=== PATIENT | male | born 1980 | race Hispanic/Latino ===

== ENCOUNTER 2025-01-30 15:43 | Inpatient (IN) | payer SELFPAY ==
[2025-01-30] VITALS (10 sets, daily range): BP systolic 125–143; BP diastolic 81–94; PULSE 100–110; RESP 20–39; O2SAT 86–97
[~2025-01-30] VITALS: Ht 188 cm; Wt 155.4 kg
--- NOTE | 2025-01-30 10:30 | NUR ---
Received report from David TOMAS, patient aox4, on a nrb at 15, patient has sister bedside, came up with a 14french farrell placed in ER, only on abx and normal saline 0.9 at this moment
[2025-01-30 16:10] LABS: ABG BASE EXCESS -0.7 mmol/L (-2.0-3.0); ABG HCO3 22.6 mmol/L (21.0-28.0); ABG OXYGEN SATURATION 94.3 % (94.0-98.0); ABG PCO2 33 mmHg (35-48); ABG PH 7.452 (7.350-7.450); CARBON MONOXIDE 1.1 % (0.5-1.5); PO2, ARTERIAL BG 71.0 mmHg (83.0-108.0); TEMPERATURE, CELSIUS BG 37.0 CELSIUS (35.5-37.0); VENT MODE, BG NRBM (ROOM AIR)
[2025-01-30 16:22] LABS: IMMATURE GRANULOCYTE ABSOLUTE 0.14 K/uL (0-1); NUCLEATED RED BLOOD CELLS 0.2 % (0.0-0.19); PLATELET COUNT (AUTO) 321 K/uL (130-400); RED BLOOD CELL COUNT(AUTO) 4.69 MIL/uL (4.50-6.20); RED CELL DISTRIBUTION WIDTH 14.2 % (11.0-15.5); WHITE BLOOD COUNT (AUTO) 9.3 K/uL (4.8-10.8)
[2025-01-30 16:35] LABS: CREATININE 1.0 mg/dL (0.5-1.3); GLOMERULAR FILTR. RATE CALC 96.0 mL/min (>90); GLUCOSE,RANDOM 94.0 mg/dL (70-105); SODIUM SERUM 138.0 mmol/L (136-145); UREA NITROGEN, BLOOD 21.0 mg/dL (7-18)
[2025-01-30 16:40] LABS: CREATINE KINASE, TOTAL 29.0 U/L (21-232)
[2025-01-30 16:42] LABS: RAPID GROUP A STREP negative (NEGATIVE)
[2025-01-30 16:44] LABS: SARS-CoV-2, RNA, NAAT NEGATIVE SARS CoV-2 (NEGATIVE)
[2025-01-30 16:49] LABS: INFLUENZA TYPE A Negative For Type A (NEGATIVE); INFLUENZA TYPE B Negative For Type B (NEGATIVE)
--- NOTE | 2025-01-30 16:49 | ERN ---
General Chief Complaint: Shortness of Breath Stated Complaint: SOB Time Seen by MD: 15:46 Source: patient, EMS History of Present Illness Initial Comments Patient is a 44-year-old male coming in complaining of shortness of breath. Per EMS patient has been presenting with shortness of breath for greater than a month. aLong with this patient has been having fever and chills. Allergies: Coded Allergies: No Known Drug Allergies (Unverified Allergy, Unknown, 01/30/25) Past Medical History Past Medical History: No Pertinent History Past Surgical History: None ROS Dictation CONSTITUTIONAL: No chills, no fever, no weakness, no diaphoresis, no malaise. HEAD/FACE: No signs of trauma. EENT: No eye pain, no blurred vision, no tearing, no double vision, no ear pain, no ear discharge, no nose pain, no nasal congestion, no throat pain, no throat swelling, no mouth pain. RESPIRATORY: No cough, no orthopnea, SOB, no stridor, no wheezing. CARDIOVASCULAR: No chest pain, no edema, no palpitations, no syncope. GASTROINTESTINAL/ABDOMINAL: No abdominal pain, no constipation, no diarrhea, no nausea, no vomiting. GENITOURINARY: No abnormal discharge, no dysuria, no frequent urination, no hematuria. No complaints of pain in the genitals. MUSCULOSKELETAL: No back pain, no gout, no joint pain, no joint swelling, no muscle pain, no muscle stiffness, no neck pain. INTEGUMENTARY: No change in color, no change in hair/nails, no dryness, no lesion, no lumps, no rash. NEUROLOGICAL/PSYCH: No anxiety, not depressed, no emotional problem, no headache, no numbness, no pre-existing deficit, no history of seizures, no tremors, no weakness. HEMATOLOGIC/LYMPHATIC: Not anemic, no history of blood clots, no apparent bleeding, no bruising, glands not swollen. All Systems Negative, Except as Noted. Physical Exam Physical Exam Dictation VITAL SIGNS: Reviewed. GENERAL APPEARANCE: Alert, oriented x3, no acute distress, obese. HEAD AND FACE: Non-traumatic. EYES: PERRL, pink conjunctivas, eyelid no trauma, anterior chamber clear. EARS: Pinnas intact and no signs of trauma or erythema. Ear canals clear and no discharge. TMs no erythema. NOSE: No discharge, no bleeding. OROPHARYNX: Mouth normal, teeth no caries, tongue pink. Pharynx clear, no erythema. Tonsils no exudates, no abscesses noted. Mucous membrane moist. NECK: Supple, non-tender, no thyromegaly, no masses, no JVD, no bruits. BREAST: Deferred. CHEST: No tenderness, no crepitus, no paradoxical movement, no retractions. LUNGS: Clear, well-ventilated, symmetric, rales, no wheezing, rhonchi, stridor, good breath sounds bilaterally. HEART: Regular rate, regular rhythm, no murmur, no gallops. VASCULAR: No peripheral edema. ABDOMEN: Soft, positive bowel sounds, nondistended, no guarding, nontender, no rebound, no masses no hepatomegaly, no splenomegaly, no Samuel's sign, no hernias. RECTAL: Deferred. GENITAL: Deferred. NEUROLOGICAL: Normal speech, gross motor function intact, gross sensory function intact. MUSCULOSKELETAL: Neck nontender, full range of motion, back nontender, full range of motion. EXTREMITIES: Nontender, full range of motion. SKIN: Color pink, dry, no turgor, no rash, no lacerations, no abrasions, no contusions. LYMPHATICS: Deferred. Results Laboratory and Microbiology Lab and Micro Result Laboratory Tests Test 01/30/25 15:58 01/30/25 16:00 01/30/25 16:08 01/30/25 17:22 White Blood Count 9.3 K/uL (4.8-10.8) Red Blood Count 4.69 MIL/uL (4.50-6.20) Hemoglobin 12.9 g/dL (14.0-18.0) L Hematocrit 40.8 % (42-54) L Mean Corpuscular Volume 87.0 fL (79-99) Mean Corpuscular Hemoglobin 27.5 pg (27.0-33.0) Mean Corpuscular Hemoglobin Concent 31.6 g/dL (32.0-36.0) L Red Cell Distribution Width 14.2 % (11.0-15.5) Platelet Count 321 K/uL (130-400) Mean Platelet Volume 9.7 fL (7.5-10.5) Immature Granulocyte % (Auto) 1.5 % (0-1) H Neutrophils (%) (Auto) 84.0 % (40.0-77.0) H Lymphocytes (%) (Auto) 7.5 % (21.0-51.0) L Monocytes (%) (Auto) 6.7 % (3.0-13.0) Eosinophils (%) (Auto) 0.1 % (0.0-8.0) Basophils (%) (Auto) 0.2 % (0.0-5.0) Neutrophils # (Auto) 7.8 K/uL (1.8-7.7) H Lymphocytes # (Auto) 0.7 K/uL (1.0-4.8) L Monocytes # (Auto) 0.6 K/uL (0.1-1.0) Eosinophils # (Auto) 0.01 K/uL (0.00-0.70) Basophils # (Auto) 0.02 K/uL (0.00-0.20) Absolute Immature Granulocyte (auto 0.14 K/uL (0-1) Nucleated Red Blood Cells 0.2 % (0.0-0.19) H White Cell Morphology Comment See comments Sodium Level 138 mmol/L (136-145) Potassium Level 3.7 mmol/L (3.5-5.1) Chloride Level 104 mmol/L (101-111) Carbon Dioxide Level 26 mmol/L (21-32) Blood Urea Nitrogen 21 mg/dL (7-18) H Creatinine 1.0 mg/dL (0.5-1.3) Glomerular Filtration Rate Calc 96 mL/min (>90) Random Glucose 94 mg/dL (70-105) Lactic Acid Level 2.0 mmol/L (0.8-2.5) Total Calcium 8.3 mg/dL (8.5-10.1) L Total Creatine Kinase 29 U/L (21-232) Troponin I High Sensitivity 11 ng/L (4-75) Influenza Type A Antigen Negative For Type A Influenza Type B Antigen Negative For Type B SARS-CoV-2, RNA, NAAT NEGATIVE SARS CoV-2 Group A Streptococcus Rapid negative (NEGATIVE) Blood Gas Specimen Type Arterial Arterial Blood pH 7.452 (7.350-7.450) Arterial Blood Partial Pressure CO2 33 mmHg (35-48) L Arterial Blood Partial Pressure O2 71.0 mmHg (83.0-108.0) L Arterial Blood HCO3 22.6 mmol/L (21.0-28.0) Arterial Blood Oxygen Saturation 94.3 % (94.0-98.0) Arterial Blood Base Excess -0.7 mmol/L (-2.0-3.0) Hemoglobin (Blood Gas) 13.5 g/dL (13.5-17.5) Sodium (Blood Gas) 142 MMOL/L (136-145) Bedside Potassium (Blood Gas) 3.8 MMOL/L (3.4-4.5) Bedside Chloride (Blood Gas) 112 MMOL/L (98-107) H Bedside Glucose (Blood Gas) 101 MG/DL (65-95) H Bedside Ionized Calcium (Blood Gas) 1.15 MMOL/L (1.15-1.33) Bedside Lactic Acid (Blood Gas) 1.29 MMOL/L (0.36-0.75) H Blood Gas Temperature 37.0 CELSIUS (35.5-37.0) Blood Gas Flow-by 15.00 L/min (0.00-15.00) Blood Gas Vent Mode NRBM (ROOM AIR) FiO2 100.0 % Blood Gas Specimen Comment RR DR. CAMPA Urine Color ORANGE (YELLOW) Urine Appearance CLEAR (CLEAR) Urine pH 6.0 (5.0-8.0) Urine Specific Elizabeth 1.025 (1.001-1.031) Urine Protein >=300 mg/dL (NEGATIVE) H Urine Glucose (UA) NEGATIVE mg/dL (NEGATIVE) Urine Ketones 5 mg/dL (NEGATIVE) H Urine Occult Blood MODERATE (NEGATIVE) H Urine Nitrate NEGATIVE (NEGATIVE) Urine Bilirubin MODERATE mg/dL (NEGATIVE) H Urine Urobilinogen 4.0 mg/dL (0.2-1.0) H Urine Leukocyte Esterase NEGATIVE Sumi/uL Urine RBC 0-1 /HPF (0-1) Urine WBC 0-1 /HPF (0-1) Urine Squamous Epithelial Cells Rare /HPF (0-2) Urine Bacteria Rare /HPF (None Seen) Urine Hyaline Casts 2-5 /LPF (0-1 /LPF) H Urine Coarse Granular Casts 0-2 /LPF (None Seen) H Labs Reviewed?: Yes EKG/XRAY/US/CT/MRI EKG Comment 01/30/2025 time 3:49 p.m. Ventricular rate 113 Sinus tachycardia [place] [address] wave elevation or depression X-RAY Comment [facility] [address] [place] [address] IMAGING REPORT Signed PATIENT: CHARY HERNANDEZ MR#: [id number] : 1980 SEX: M AGE: 44 LOCATION: [facility] ORDER 56 STATUS: [facility] ER REPORT#: [id number] SERVICE 55 REASON: fever ORDERING PHYSICIAN: MUSA CAMPA MD PROCEDURE: CXR1VW - CHEST 1VW EXAM: XR Chest, 1 View. CLINICAL HISTORY: Fever. COMPARISON: None provided. FINDINGS: LUNGS: Limited low inspiratory radiograph. Diffuse alveolar infiltrates are seen throughout the lung curtis. PLEURAL SPACES: No pleural effusion or pneumothorax. HEART: The heart size is normal. BONES: No acute osseous abnormality. IMPRESSION: * Diffuse alveolar infiltrates throughout both lungs, compatible with a diffuse pneumonic process such as pneumonia with an ARDS type picture; correlate clinically. /[place] DICTATED BY: LEXX GRIGGS MD DATE: 01/30/251803 ELECTRONICALLY SIGNED BY: LEXX GRIGGS MD DATE: 01/30/251803 [facility] MDM: Differential diagnosis: COPD exacerbation, acute bronchitis, respiratory distress, Rationale: Tests considered and ordered secondary to shared decision making inc lude: labs, ECG and radiology Previous outside records reviewed: Old ER visits. Risk of complication and/or morbidity or mortality of patient management: None Medications-Per medication reconciliation Need for hospitalization: Patient does meet criteria for hospitalization. Need for emergency major/minor surgery: No There are no social concerns with this patient. Prescription drug management Prescriptions will include symptomatic care Patient's prior external medical records from other ER visits were reviewed by me as indicated. Prior testing and results from previous visits were reviewed. Prior tests were taken into account with medical decision making and resource utilization, independent historian/historians were used to obtain complete medical history. I independently interpreted the test that were performed, results were reviewed by me and considered findings on radiology if ordered. Medical management and examination interpretation discussions were had by me with other qualified healthcare professionals as indicated for the patient's care. Patient will be admitted under the care of hospitalist group ED Course Orders Procedure Category Date Status Time Cbc With Differential LAB 01/30/25 Complete 15:52 Blood Cult VICKI 01/30/25 In Process 15:52 Urinalysis Profile LAB 01/30/25 Complete 15:52 Culture Urine VICKI 01/30/25 In Process 15:52 Creatine Kinase, Total LAB 01/30/25 Complete 15:52 Troponin I High LAB 01/30/25 Complete Sensitivity 15:52 Lactic Acid LAB 01/30/25 Complete 15:52 Basic Metabolic Panel LAB 01/30/25 Complete 15:52 Arterial Blood Gas + RT 01/30/25 Transmitted 15:55 Chest 1vw RAD 01/30/25 Resulted 15:56 Morphine 2mg Syg PHA 01/30/25 Complete (Morphine 2mg Syg) 16:00 Covid Rna Naat LAB 01/30/25 Complete 15:56 Influenza Type A & B, LAB 01/30/25 Complete Rapid 15:56 Rapid (Group A Strep) LAB 01/30/25 Complete 15:56 12 Lead Ekg Tracing- EKG 01/30/25 Logged Technical 15:56 Arterial Blood Gas LAB 01/30/25 Complete Arterial + 16:08 Nurse Driven Dias ALEE 01/30/25 In Process Removal Pro 17:47 Fluconazole 200 Mg/Ns PHA 01/30/25 In Process 100 Ml (Diflucan 2 18:00 Vancomycin 1g/250ml PHA 01/30/25 Complete Kit (Vancomycin 1g/2 18:00 Current Medications Medications (Trade) Dose Ordered Sig/Amada Route PRN Reason Start Time Stop Time Status Last Admin Dose Admin Fluconazole/ Sodium Chloride (DiFLUCan 200 MG/ NS 100 ML) 200 mg Q24H IV 01/30/25 18:00 03/01/25 17:59 01/30/25 18:03 Morphine Sulfate (morPHINE 2MG SYG) 2 mg ONCE ONCE IVP 01/30/25 16:00 01/30/25 16:01 DC Vancomycin HCl (Vancomycin 1g/ 250ml Kit) 1 gm ONCE ONCE IV 01/30/25 18:00 01/30/25 18:01 DC 01/30/25 18:03 Vital Signs Date Time Temp Pulse Resp B/P (MAP) Pulse Ox O2 Delivery O2 Flow Rate FiO2 01/30/25 17:28 100.0 105 40 129/91 98 Room Air* 0 21 11/24/25 16:01 100.2 113 20 136/90 93 Non-Rebreather+ 10 100 01/30/25 15:44 100.2 112 28 119/60 98 Nonrebreathing Mask 10.0 Critical Care Note Comments Critical Care Procedure Note Authorized and Performed by: me Total critical care time: Approximately 36 minutes Due to a high probability of clinically significant, life threatening deterioration, the patient required my highest level of preparedness to intervene emergently and I personally spent this critical care time directly and personally managing the patient. This critical care time included obtaining a history; examining the patient; pulse oximetry; ordering and review of studies; arranging urgent treatment with development of a management plan; evaluation of patient's response to treatment; frequent reassessment; and, discussions with other providers. This critical care time was performed to assess and manage the high probability of imminent, life-threatening deterioration that could result in multi-organ failure. It was exclusive of separately billable procedures and treating other patients and teaching time. Please see MDM section and the rest of the note for further information on patient assessment and treatment. DX & DISP Disposition: Inpatient Decision to Admit Time: 18:25 Departure Impression: Primary Impression: ARDS (adult respiratory distress syndrome) Additional Impression: SIRS (systemic inflammatory response syndrome) Condition: Stable Referrals: SHUBHAM BOYD (PCP) MUSA CAMPA MD Jan 30, 2025 16:49
--- NOTE | 2025-01-30 17:05 | HMCIMG ---
EXAM: XR Chest, 1 View. CLINICAL HISTORY: Fever. COMPARISON: None provided. FINDINGS: LUNGS: Limited low inspiratory radiograph. Diffuse alveolar infiltrates are seen throughout the lung curtis. PLEURAL SPACES: No pleural effusion or pneumothorax. HEART: The heart size is normal. BONES: No acute osseous abnormality. IMPRESSION: * Diffuse alveolar infiltrates throughout both lungs, compatible with a diffuse pneumonic process such as pneumonia with an ARDS type picture; correlate clinically. /[place]
--- NOTE | 2025-01-30 17:25 | NUR ---
REPORT RECEIVED FROM DENIS TOMAS. PATIENT MOVED TO ER03. PATIENT CARE ASSUMED AT THIS TIME.
[2025-01-30 17:41] LABS: APPEARANCE,URINE CLEAR (CLEAR); GLUCOSE, URINE (UA) NEGATIVE (NEGATIVE); LEUKOCYTE ESTERASE ,URINE NEGATIVE Leu/uL (NEGATIVE); NITRATE,URINE NEGATIVE (NEGATIVE); OCCULT BLOOD,URINE MODERATE (NEGATIVE)
[2025-01-30 17:43] LABS: ADD UA MICROSCOPIC YES
[2025-01-30 17:52] LABS: COARSE GRANULAR CASTS,URINE 0-2 /LPF (None Seen); SQUAMOUS EPITHELIAL CELL,UR Rare /HPF (0-2)
[2025-01-30] MEDS: VANCOMYCIN KIT 1 GM/250 ML IV.KIT IV ONE (18:03)
--- NOTE | 2025-01-30 18:23 | EKG ---
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
[2025-01-30] MEDS ORDERED: guaiFENesin-DM 200/20MG 10ML PO PRN (20:00)
[2025-01-30] MEDS ORDERED: BACTRIM IV SCH (20:00)
[2025-01-30] MEDS ORDERED: DEXTROSE 5% IV SCH (20:00)
[2025-01-30] MEDS ORDERED: WATER IV SCH (20:00)
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
--- NOTE | 2025-01-30 20:18 | NUR ---
NURSE AVE AWARE OF RX CALL FOR DOSING INFO OF PT MEDS
--- NOTE | 2025-01-30 20:21 | NUR ---
SPOKE WITH PHARMACY REGARDING ANTIBIOTICS DOSING. REFERRED THEM TO [id number].
[2025-01-30 21:03] LABS: HIV 1&2 ANTIBODY Preliminary Positive (Negative)
[2025-01-30] MEDS: Solu-medROL 40MG VIAL IVP SCH (21:18)
[2025-01-30] MEDS: 0.9%NACL 1000ML 1,000 ML IV SCH (21:18)
--- NOTE | 2025-01-30 21:23 | HMCIMG ---
EXAMINATION: CT Chest without intravenous contrast. CLINICAL HISTORY: Patient presents with shortness of breath. TECHNIQUE: Axial computed tomography images of the chest without intravenous contrast. CONTRAST: No intravenous contrast. COMPARISON: Chest x-ray dated January 30, 2025. FINDINGS: LUNGS: Multifocal ground-glass opacities are seen involving the bilateral lung parenchyma rest of the left lower lobe. There is associated interstitial septal thickening seen as well PLEURAL SPACES: Thin rim of bilateral pleural effusions. No evidence of pneumothorax. HEART: No cardiomegaly. No significant pericardial effusion. LYMPH NODES: No lymphadenopathy is evident. UPPER ABDOMEN: The upper abdominal solid organs are unremarkable. BONES: No acute osseous abnormality. IMPRESSION: Extensive confluent bilateral airspace opacities involving nearly the entire lung curtis, with mild sparing of the left lower lobe, raising concern for severe diffuse pneumonia / ARDS-like pattern. Recommend clinical correlation and short-interval follow-up. Thin rim of bilateral pleural effusions. The features are similar to those of the chest X-ray performed the same day, with limitations inherent to the modality. /Trupti
[2025-01-30 22:08] LABS: ABG BASE EXCESS -2.3 mmol/L (-2.0-3.0); ABG HCO3 21.6 mmol/L (21.0-28.0); ABG OXYGEN SATURATION 97.0 % (94.0-98.0); ABG PCO2 34 mmHg (35-48); ABG PH 7.417 (7.350-7.450); CARBON MONOXIDE 0.3 % (0.5-1.5); PO2, ARTERIAL BG 99.2 mmHg (83.0-108.0); TEMPERATURE, CELSIUS BG 37.0 CELSIUS (35.5-37.0); VENT MODE, BG NRB (ROOM AIR)
[2025-01-30] MEDS: SODIUM CHLORIDE 3% FOR INHALATION 4 ML/AMP VIAL.NEB IH ONE (22:24)
--- NOTE | 2025-01-30 22:31 | NUR ---
PER NURSING COMMUNICATION: PATIENT HISTORY FROM PCP AND IMAGING FOR LIVER AND THYROID ARE IN A PACKET WITH PATIENT'S SISTER AT BEDSIDE.
--- NOTE | 2025-01-30 22:32 | NUR ---
REPORT GIVEN TO RAKESH TOMAS.
[2025-01-30 23:56] LABS: AMPHET/METH SCREEN,URINE NEGATIVE (NEGATIVE); BARBITURATE SCREEN, URINE NEGATIVE (NEGATIVE); CANNABINOID SCREEN,URINE NEGATIVE (NEGATIVE); COCAINE SCREEN,URINE NEGATIVE (NEGATIVE)
[2025-01-31] VITALS (89 sets, daily range): BP systolic 92–138; BP diastolic 44–95; PULSE 77–113; RESP 15–54; TEMP 98.2–102.6; O2SAT 94–99
--- NOTE | 2025-01-31 03:02 | HMCIMG ---
EXAM: US for Deep Venous Thrombosis, bilateral Lower Extremity. CLINICAL HISTORY: Rule out deep venous thrombosis. TECHNIQUE: Real-time ultrasound scan of the veins of the bilateral lower extremity with color Doppler flow, spectral waveform analysis and compression. COMPARISON: None provided. FINDINGS: DEEP VEINS: The common femoral, superficial femoral, and popliteal veins are echolucent and compressible. There is normal color Doppler flow throughout. The visualized calf veins appear patent. SOFT TISSUES: No popliteal fossa cyst or other abnormalities. IMPRESSION: No deep venous thrombosis is evident on bilateral lower extremity examination. /Trupti
--- NOTE | 2025-01-31 03:21 | NUR ---
spoke with rola eagle, okay to put ABG
[2025-01-31 03:41] LABS: ABG BASE EXCESS -3.0 mmol/L (-2.0-3.0); ABG HCO3 22.4 mmol/L (21.0-28.0); ABG OXYGEN SATURATION 96.9 % (94.0-98.0); ABG PCO2 41 mmHg (35-48); ABG PH 7.354 (7.350-7.450); PO2, ARTERIAL BG 94.3 mmHg (83.0-108.0); TEMPERATURE, CELSIUS BG 37.0 CELSIUS (35.5-37.0); VENT MODE, BG BIPAP 10-5 (ROOM AIR)
--- NOTE | 2025-01-31 03:44 | NUR ---
spoke with rola eagle, stat cxr as per rola medley np
[2025-01-31] MEDS ORDERED: LACTATED RINGERS 1000ML IV ONE (04:23)
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
[2025-01-31 04:51] LABS: IMMATURE GRANULOCYTE ABSOLUTE 0.10 K/uL (0-1); NUCLEATED RED BLOOD CELLS 0.2 % (0.0-0.19); PLATELET COUNT (AUTO) 275 K/uL (130-400); RED BLOOD CELL COUNT(AUTO) 4.07 MIL/uL (4.50-6.20); RED CELL DISTRIBUTION WIDTH 13.9 % (11.0-15.5); WHITE BLOOD COUNT (AUTO) 9.1 K/uL (4.8-10.8)
[2025-01-31] MEDS ORDERED: GLUCAGON 1MG KIT 1 MG ML IM PRN (05:00)
--- NOTE | 2025-01-31 05:07 | HMCIMG ---
EXAM: CR Chest, 1 view CLINICAL HISTORY: Shortness of breath. COMPARISON: 01/30/2025. FINDINGS: Mild cardiomegaly. Severe pulmonary vascular congestion, pulmonary edema and pneumonia in the bilateral lung curtis. Questionable trace pleural effusions bilaterally. No pneumothorax. No acute osseous abnormality. IMPRESSION: Mild cardiomegaly. Severe pulmonary vascular congestion, pulmonary edema and pneumonia in the bilateral lung curtis. Questionable trace pleural effusions bilaterally. Compared to the prior study, there is no significant interval change. /[place]
[2025-01-31 05:37] LABS: ASPARTATE AMINOTRANSFERASE 103.0 U/L (10-37); CREATININE 1.1 mg/dL (0.5-1.3); GLOMERULAR FILTR. RATE CALC 86.0 mL/min (>90); GLUCOSE,RANDOM 163.0 mg/dL (70-105); LACTATE DEHYDROGENASE 568.0 U/L (81-234); SODIUM SERUM 140.0 mmol/L (136-145); TOTAL PROTEIN, SERUM 7.6 g/dL (6.0-8.3); UREA NITROGEN, BLOOD 28.0 mg/dL (7-18)
[2025-01-31] MEDS: Solu-medROL 40MG VIAL IVP SCH (05:40)
--- NOTE | 2025-01-31 07:05 | HMCIMG ---
EXAMINATION: CT Chest, with intravenous contrast CLINICAL HISTORY: Patient presents to rule out pulmonary embolism. TECHNIQUE: Axial computed tomography images of the chest, with intravenous contrast. Multiplanar reformations were generated and reviewed. CONTRAST: With intravenous contrast. COMPARISON: None provided. FINDINGS: CHEST: LUNGS: The lungs demonstrate extensive diffuse consolidation and airspace opacities and ground-glassing throughout the bilateral lungs, predominantly involving the lower lobes and perihilar regions. No pulmonary mass. PLEURAL SPACES: No pneumothorax or pleural effusion. CARDIOVASCULAR: Cardiomegaly is present. No significant pericardial effusion. The main pulmonary artery measures 3.2 cm. The right pulmonary artery measures 2 cm. The left pulmonary artery measures 2.2 cm. The pulmonary arteries show no evidence of filling defects. Normal caliber thoracic aorta. MEDIASTINUM AND SILVINO: No mediastinal or hilar lymphadenopathy. ABDOMEN : Hepatosplenomegaly BONES: No acute or aggressive osseous abnormality. IMPRESSION: No acute pulmonary embolism. Extensive diffuse bilateral pulmonary airspace opacities, predominantly in the lower lobes and perihilar regions, consistent with pulmonary edema. Cardiomegaly with mild pulmonary arterial hypertension. Hepatosplenomegaly. /Trupti
[2025-01-31] MEDS ORDERED: IOHEXOL-350 75 ML VIAL IV ONE (07:11)
[2025-01-31] MEDS ORDERED: COMPOUND IV REFRIGERATED 1 EACH IVSOLN MISC PRN (08:00)
[2025-01-31] MEDS ORDERED: COMPOUND IV MISC 1 EACH IVSOLN MISC PRN (08:00)
[2025-01-31] MEDS: FAMOTIDINE 20MG VIAL IV SCH (08:46)
--- NOTE | 2025-01-31 10:50 | PN ---
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 QUADRI MD Jan 31, 2025 10:50
--- NOTE | 2025-01-31 11:03 | NUR ---
DCP: PENDING- MPOA sister DUSTY SAUER [phone] Pt on Bipap, Sw met with sister/JANETH Sauer. Sister provided copy of MPOA, placed on chart. Prior to admission, pt was living with his parents Pat and Olga Alejandre [phone] at their home. Sister reports be not working or on SSD, was independent of self care. Sister assisted with transportation as needed. Pt using a borrowed w/c, no provider, HH or HD services. PCP is Lul Boyer and uses [facility] in [place] for rx. Discussed referral to [facility]. Sister states pt in no condition at this time for referral, Sw to follow and make referral when appropriate. DCP Pending. SW and CM to follow and assist as needed Addendum: 01/31/25 at 1109 by JOAN CRAIG Amended: Links added.
[2025-01-31] MEDS: ZOSYN 3.375GM +NS 50ML IVPB SCH ×2 (11:04→13:09)
[2025-01-31] MEDS: DOXYCYCLINE 100MG+NS 250ML 250 ML IV SCH (15:12)
[2025-01-31] MEDS: ARTIFICIAL TEARS 3.5 GM OINTMENT OU SCH (15:18)
--- NOTE | 2025-01-31 15:42 | HMCIMG ---
Comparison earlier today Findings: There are infiltrates noted in the right lower lobe The heart is enlarged. There is a right PICC line in the SVC There are no acute fractures or pneumothorax. impression: Right lower lobe infiltrate /[place]
--- NOTE | 2025-01-31 16:04 | PN ---
[facility] PROGRESS NOTE Date Patient Seen: Jan 31, 2025 Time of Visit: 15:59 Supervising Physician: PRAVEENA LEE MD Primary Care Physician: [Avi LESTER] Outpatient Specialists: [ ] Inpatient Consults: [Dr. Prince, [facility] team-ICU] PROBLEM LIST: Acute hypoxemic respiratory failure present on admission requiring noninvasive ventilator support with BiPAP ARDS Community-acquired pneumonia suspected Pneumocystis Toxic metabolic encephalopathy on admission Acute sepsis on admission without septic shock secondary to community-acquired pneumonia HIV positive newly diagnosed. Not on anti-retroviral medication Elevated D-dimer on admission, ruled out for PE Immunocompromise status Suspected TB Obstructive sleep apnea, untreated/undiagnosed Morbid obesity, BMI 33.6 INTERVAL HISTORY: Patient is seen in the ICU. He is critically ill. Currently on BiPAP. O2 saturation is 92% with 40% FiO2 Bed ridden, weak and severely deconditioned Complains of dyspnea, complains of orthopnea Patient with cough, congestion. No hemoptysis Poor appetite, no nausea. Complains of chills , denies fevers Voiding REVIEW OF SYSTEMS: Unable to perform 12 point ROS due to being sedated. PHYSICAL EXAM: GENERAL: Sedated, currently on Precedex HEENT: EOMI, Sclera non icteric, moist mucosa NECK: Supple, no JVD, trachea midline LUNGS: Bilateral crackles, no rhonchi. No wheezing. HEART: Regular rate and rhythm. Normal S1 and S2, without murmurs ABD: Abdomen soft, nontender. Bowel sounds present, obese EXT: No clubbing cyanosis or edema : Dias in situ NEURO: Sedated, currently on Precedex Vital Signs (last 8hr) Date Time Temp Pulse Resp B/P (MAP) Pulse Ox O2 Delivery O2 Flow Rate FiO2 01/31/25 15:07 100.0 81 32 128/80 (96) 97 01/31/25 14:52 82 25 127/76 (93) 96 01/31/25 14:37 82 33 127/72 (90) 97 01/31/25 14:22 83 34 118/77 (91) 97 01/31/25 14:07 86 23 120/80 (93) 96 01/31/25 13:52 89 37 115/74 (88) 95 01/31/25 13:44 82 36 01/31/25 13:37 97 38 117/69 (85) 97 01/31/25 13:22 82 40 124/73 (90) 97 01/31/25 13:07 90 42 126/74 (91) 97 01/31/25 12:52 100.0 95 39 128/88 (101) 97 01/31/25 12:22 87 34 125/75 (92) 96 01/31/25 12:07 84 32 122/68 (86) 96 01/31/25 11:37 99.3 85 33 125/74 (91) 96 01/31/25 11:33 89 35 60 01/31/25 11:22 86 35 123/76 (92) 96 01/31/25 11:07 89 34 124/72 (89) 96 01/31/25 10:07 96 39 118/73 (88) 98 01/31/25 10:01 82 40 01/31/25 09:52 101 40 118/65 (82) 98 01/31/25 09:37 87 46 130/87 (101) 94 01/31/25 09:22 85 37 130/82 (98) 92 01/31/25 09:07 84 38 131/84 (100) 93 01/31/25 08:52 86 35 131/85 (100) 94 01/31/25 08:43 99.9 01/31/25 08:37 90 47 129/81 (97) 95 01/31/25 08:22 93 45 138/92 (107) 95 01/31/25 08:07 99.9 87 54 123/71 (88) 94 LABS: Hematology Labs: Test 01/31/25 04:34 01/30/25 15:58 Range/Units White Blood Count 9.1 4.8-10.8 K/uL Red Blood Count 4.07 L 4.50-6.20 MIL/uL Hemoglobin 11.3 L 14.0-18.0 g/dL Hematocrit 36.0 L 42-54 % Mean Corpuscular Volume 88.5 79-99 fL Mean Corpuscular Hemoglobin 27.8 27.0-33.0 pg Mean Corpuscular Hemoglobin Concent 31.4 L 32.0-36.0 g/dL Red Cell Distribution Width 13.9 11.0-15.5 % Platelet Count 275 130-400 K/uL Mean Platelet Volume 9.8 7.5-10.5 fL Immature Granulocyte % (Auto) 1.1 H 0-1 % Neutrophils (%) (Auto) 91.3 H 40.0-77.0 % Lymphocytes (%) (Auto) 5.1 L 21.0-51.0 % Monocytes (%) (Auto) 2.4 L 3.0-13.0 % Eosinophils (%) (Auto) 0.0 0.0-8.0 % Basophils (%) (Auto) 0.1 0.0-5.0 % Neutrophils # (Auto) 8.3 H 1.8-7.7 K/uL Lymphocytes # (Auto) 0.5 L 1.0-4.8 K/uL Monocytes # (Auto) 0.2 0.1-1.0 K/uL Eosinophils # (Auto) 0.00 0.00-0.70 K/uL Basophils # (Auto) 0.01 0.00-0.20 K/uL Absolute Immature Granulocyte (auto 0.10 0-1 K/uL Nucleated Red Blood Cells 0.2 H 0.0-0.19 % White Cell Morphology Comment See comments Chemistry Labs: Test 01/31/25 12:47 01/31/25 04:34 01/30/25 23:48 01/30/25 15:58 Range/Units Whole Blood Glucose 227 H 70-110 MG/DL Sodium Level 140 136-145 mmol/L Potassium Level 4.8 3.5-5.1 mmol/L Chloride Level 107 101-111 mmol/L Carbon Dioxide Level 24 21-32 mmol/L Blood Urea Nitrogen 28 H 7-18 mg/dL Creatinine 1.1 0.5-1.3 mg/dL Glomerular Filtration Rate Calc 86 >90 mL/min Random Glucose 163 #H 70-105 mg/dL Lactic Acid Level 1.6 0.8-2.5 mmol/L Total Calcium 7.9 L 8.5-10.1 mg/dL Magnesium Level 2.30 1.80-2.40 mg/dL Total Bilirubin 0.5 0.2-1.0 mg/dL Direct Bilirubin 0.5 H 0.0-0.3 mg/dL Aspartate Amino Transf (AST/SGOT) 103 H 10-37 U/L Alanine Aminotransferase (ALT/SGPT) 24 12-78 U/L Alkaline Phosphatase 237 H 50-136 U/L Lactate Dehydrogenase 568 H 81-234 U/L Total Protein 7.6 6.0-8.3 g/dL Albumin 1.1 L 3.5-5.0 g/dL Procalcitonin 1.55 H 0.05-0.5 ng/mL B-Type Natriuretic Peptide 31 0-100 pg/mL Total Creatine Kinase 29 21-232 U/L Troponin I High Sensitivity 11 4-75 ng/L Coagulation Labs: Test 01/30/25 23:48 Range/Units D-Dimer Quantitative (PE/DVT) 2330 *H 0-500 ng/mL DIAGNOSTICS / RADIOLOGY RESULTS: CT scan of the chest reviewed, bilateral pulmonary infiltrates with ARDS. PLAN Slowly wean off Precedex Continue ICU management, patient critically ill requiring higher level of medical care Continue IV antibiotics Currently on Bactrim, doxycycline Continue IV steroids Follow recommendations From Infectious and Disease poor prognosis NEURO: Minimize central acting medications as possible. Fall Precautions. Well lighted room through the day and minimize interruptions through the night to prevent acute delirium. PULMONARY: Supplemental 02 as needed Titrate Fio2 to keep Spo2 > or = 90% DuoNebs and CPT as needed IS hourly while awake for pulmonary hygiene Out of bed to chair as tolerated VAP Bundle Vent/BIPAP Settings: [ BIPAP setting 12/11 rate of 18 FiO2 60%. ] CARDIOVASCULAR: Follow hemodynamics. Titrate vasopressor to keep MAP >65 or systolic blood pressure >95mmHg DRIPS: [Precedex ] LINES: [PIV] GI & NUTRITION: Continue nutritional support Aspirations precautions Prokinetic agents and laxatives as needed KIDNEYS & ELECTROLYTES: Strict monitoring of intake and output Daily weights Avoid nephrotoxic agents Monitor electrolytes and replace as needed Dias care-prevent CAUTI per nursing Goal urine output of 30mL/hr or 0.5mL/kg/hr Urine output: [ ] Fluid Balance: [ ] ENDOCRINE: Maintain blood glucose between 100-180 at all times. Insulin sliding scale for blood glucose management INFECTIOUS DISEASE: Trend temperature. Lara-culture if febrile. Micro: [ ] Antibiotics: [Vancomycin 01/30- IV Fluconazole: 01/30- IV Sulfa/TMP: 01/30-] HEMATOLOGY & COAGULATION: Monitor H&H. Keep Hgb > 7 Transfuse 1 unit of PRBC for Hgb < 7 Transfuse 1 pack of platelets of platelets < 20, 000 Watch for any signs and symptoms of bleeding SKIN: Pressure ulcer prevention per facility protocol Rehab: PT/OT Prophylaxis: GI: [Pepcid] DVT: [Heparin ] Code Status: Full Resuscitation Disposition: [ICU ] Other: Total patient care time: 35 minutes I personally scribed for PRAVEENA LEE MD ([email or web address]) on 01/31/25 at 16:04. Electronically submitted by Erick Cruz ([email or web address]). PRAVEENA LEE MD Jan 31, 2025 16:04
--- NOTE | 2025-01-31 18:13 | PN ---
INFECTIOUS DISEASE PROGRESS NOTE Date of Service: Jan 31, 2025 SUBJECTIVE: This is a 44-year-old male patient who at this time is unable to answer questions due on respiratory failure and on BiPAP support. Patient's brother who is present at bedside answered most questions and stated that his sister and himself will be the ones making patient's decisions. Per report patient has no past significant medical history. Per brother's report patient is a homosexual. Patient was admitted to the hospital with shortness of breath, fever and chills, generalized body weakness a loss of appetite. On admission patient had a fever of 100.2 and a chest x-ray showed diffuse alveolar infiltrates throughout both lungs, compatible with a diffuse pneumonic process such as pneumonia with possible ARDS. The D-dimer was elevated and the HIV-1 and HIV-2 preliminary results came back positive. The venous Doppler was negative for PE and a CT chest did not show PE. Patient has been started on fluconazole, Zosyn and Bactrim IV. We will add doxycycline IV every12 hours. We will obtain CD count, hepatitis panel, Pneumocystis smear etc and follow up on the results. These findings and current plan was explained to patient's brother. REVIEW OF SYSTEMS Unable to obtain. PHYSICAL EXAM EYES: Anicteric. Pupils equal and reactive. HENT: Dry Oral mucosa. Oral thrush. NECK: Supple, no JVD or thyromegaly. LUNGS: Diminished breaths sounds and on BiPAP support. CARDIOVASCULAR: S1, S2 regular. No murmur heard. ABDOMEN: Soft, non tender, bowel sounds present, no organomegaly. CENTRAL NERVOUS SYSTEM: Unable to answer questions due to severe respiratory failure. SKIN: Rash on abdomen and lower extremities. LYMPHATICS: No peripheral lymphadenopathy MUSCULOSKELETAL: No joint swelling, erythema or tenderness. EXTREMITIES: No cyanosis or clubbing. Weakness. BACK: No deformity, no pressure ulcer. GENITOURINARY: No dysuria or hematuria. Dias catheter. Vital Sign (Last 12 Hours) 01/31/25 01/31/25 01/31/25 01/31/25 06:33 06:35 07:07 07:22 Pulse 86 87 88 88 Resp 39 39 48 50 B/P (MAP) 122/69 (86) 120/71 (87) Pulse Ox 94 93 FiO2 60 01/31/25 01/31/25 01/31/2501/31/25 07:37 08:07 08:22 08:37 Temp 99.9 Pulse 88 87 93 90 Resp 48 54 45 47 B/P (MAP) 123/73 (90) 123/71 (88) 138/92 (107) 129/81 (97) Pulse Ox 94 94 95 95 01/31/25 01/31/25 01/31/25 01/31/25 08:43 08:52 09:07 09:22 Temp 99.9 Pulse 86 84 85 Resp 35 38 37 B/P (MAP) 131/85 (100) 131/84 (100) 130/82 (98) Pulse Ox 94 93 92 01/31/25 01/31/25 01/31/25 01/31/25 09:37 09:52 10:01 10:07 Pulse 87 101 82 96 Resp 46 40 40 39 B/P (MAP) 130/87 (101) 118/65 (82) 118/73 (88) Pulse Ox 94 98 98 01/31/25 01/31/25 01/31/25 01/31/25 11:07 11:22 11:33 11:37 Temp 99.3 Pulse 89 86 89 85 Resp 34 35 35 33 B/P (MAP) 124/72 (89) 123/76 (92) 125/74 (91) Pulse Ox 96 96 96 FiO2 60 01/31/25 01/31/25 01/31/25 01/31/25 12:07 12:22 12:52 13:07 Temp 100.0 Pulse 84 87 95 90 Resp 32 34 39 42 B/P (MAP) 122/68 (86) 125/75 (92) 128/88 (101) 126/74 (91) Pulse Ox 96 96 97 97 01/31/25 01/31/25 01/31/25 01/31/25 13:22 13:37 13:44 13:52 Pulse 82 97 82 89 Resp 40 38 36 37 B/P (MAP) 124/73 (90) 117/69 (85) 115/74 (88) Pulse Ox 97 97 95 01/31/25 01/31/25 01/31/25 01/31/25 14:07 14:22 14:37 14:52 Pulse 86 83 82 82 Resp 23 34 33 25 B/P (MAP) 120/80 (93) 118/77 (91) 127/72 (90) 127/76 (93) Pulse Ox 96 97 97 96 01/31/25 01/31/25 15:07 16:14 Temp 100.0 Pulse 81 89 Resp 32 37 B/P (MAP) 128/80 (96) Pulse Ox 97 FiO2 60 Intake & Output (last 24hrs) 01/30/25 01/30/25 01/31/25 15:00 23:00 07:00 Intake Total 350.0 ml 1146.0 ml Output Total 1000 ml Balance 350.0 ml 146.0 ml LABS: Laboratory: Test 01/31/25 12:47 01/31/25 04:34 01/31/25 03:39 01/30/25 23:48 Range/Units Whole Blood Glucose 227 H 70-110 MG/DL White Blood Count 9.1 4.8-10.8 K/uL Red Blood Count 4.07 L 4.50-6.20 MIL/uL Hemoglobin 11.3 L 14.0-18.0 g/dL Hematocrit 36.0 L 42-54 % Mean Corpuscular Volume 88.5 79-99 fL Mean Corpuscular Hemoglobin 27.8 27.0-33.0 pg Mean Corpuscular Hemoglobin Concent 31.4 L 32.0-36.0 g/dL Red Cell Distribution Width 13.9 11.0-15.5 % Platelet Count 275 130-400 K/uL Mean Platelet Volume 9.8 7.5-10.5 fL Immature Granulocyte % (Auto) 1.1 H 0-1 % Neutrophils (%) (Auto) 91.3 H 40.0-77.0 % Lymphocytes (%) (Auto) 5.1 L 21.0-51.0 % Monocytes (%) (Auto) 2.4 L 3.0-13.0 % Eosinophils (%) (Auto) 0.0 0.0-8.0 % Basophils (%) (Auto) 0.1 0.0-5.0 % Neutrophils # (Auto) 8.3 H 1.8-7.7 K/uL Lymphocytes # (Auto) 0.5 L 1.0-4.8 K/uL Monocytes # (Auto) 0.2 0.1-1.0 K/uL Eosinophils # (Auto) 0.00 0.00-0.70 K/uL Basophils # (Auto) 0.01 0.00-0.20 K/uL Absolute Immature Granulocyte (auto 0.10 0-1 K/uL Nucleated Red Blood Cells 0.2 H 0.0-0.19 % Sodium Level 140 136-145 mmol/L Potassium Level 4.8 3.5-5.1 mmol/L Chloride Level 107 101-111 mmol/L Carbon Dioxide Level 24 21-32 mmol/L Blood Urea Nitrogen 28 H 7-18 mg/dL Creatinine 1.1 0.5-1.3 mg/dL Glomerular Filtration Rate Calc 86 >90 mL/min Random Glucose 163 #H 70-105 mg/dL Lactic Acid Level 1.6 0.8-2.5 mmol/L Total Calcium 7.9 L 8.5-10.1 mg/dL Magnesium Level 2.30 1.80-2.40 mg/dL Total Bilirubin 0.5 0.2-1.0 mg/dL Direct Bilirubin 0.5 H 0.0-0.3 mg/dL Aspartate Amino Transf (AST/SGOT) 103 H 10-37 U/L Alanine Aminotransferase (ALT/SGPT) 24 12-78 U/L Alkaline Phosphatase 237 H 50-136 U/L Lactate Dehydrogenase 568 H 81-234 U/L Total Protein 7.6 6.0-8.3 g/dL Albumin 1.1 L 3.5-5.0 g/dL Procalcitonin 1.55 H 0.05-0.5 ng/mL Blood Gas Specimen Type Arterial Arterial Blood pH 7.354 7.350-7.450 Arterial Blood Partial Pressure CO2 41 35-48 mmHg Arterial Blood Partial Pressure O2 94.3 83.0-108.0 mmHg Arterial Blood HCO3 22.4 21.0-28.0 mmol/L Arterial Blood Oxygen Saturation 96.9 94.0-98.0 % Arterial Blood Base Excess -3.0 L -2.0-3.0 mmol/L Blood Gas Temperature 37.0 35.5-37.0 CELSIUS Blood Gas Respiration Rate 18.0 min. Blood Gas Vent Mode BIPAP 10-5 ROOM AIR FiO2 60.0 % Blood Gas Specimen Comment RAKESH RN, RR D-Dimer Quantitative (PE/DVT) 2330 *H 0-500 ng/mL B-Type Natriuretic Peptide 31 0-100 pg/mL Test 01/30/25 22:07 01/30/25 17:22 01/30/25 16:00 01/30/25 15:58 Range/Units Hemoglobin (Blood Gas) 12.7 L 13.5-17.5 g/dL Sodium (Blood Gas) 144 136-145 MMOL/L Bedside Potassium (Blood Gas) 4.1 3.4-4.5 MMOL/L Bedside Chloride (Blood Gas) 112 H 98-107 MMOL/L Bedside Glucose (Blood Gas) 86 65-95 MG/DL Bedside Ionized Calcium (Blood Gas) 1.18 1.15-1.33 MMOL/L Bedside Lactic Acid (Blood Gas) 0.98 H 0.36-0.75 MMOL/L Blood Gas Flow-by 15.00 0.00-15.00 L/min Urine Color ORANGE YELLOW Urine Appearance CLEAR CLEAR Urine pH 6.0 5.0-8.0 Urine Specific [place] 1.025 1.001-1.031 Urine Protein >=300 H NEGATIVE mg/dL Urine Glucose (UA) NEGATIVE NEGATIVE mg/dL Urine Ketones 5 H NEGATIVE mg/dL Urine Occult Blood MODERATE H NEGATIVE Urine Nitrate NEGATIVE NEGATIVE Urine Bilirubin MODERATE H NEGATIVE mg/dL Urine Urobilinogen 4.0 H 0.2-1.0 mg/dL Urine Leukocyte Esterase NEGATIVE NEGATIVE Sumi/uL Urine RBC 0-1 0-1 /HPF Urine WBC 0-1 0-1 /HPF Urine Squamous Epithelial Cells Rare 0-2 /HPF Urine Bacteria Rare None Seen /HPF Urine Hyaline Casts 2-5 H 0-1 /LPF /LPF Urine Coarse Granular Casts 0-2 H None Seen /LPF Urine Opiates Screen NEGATIVE NEGATIVE Urine Barbiturates Screen NEGATIVE NEGATIVE Urine Phencyclidine Screen NEGATIVE NEGATIVE Urine Amphetamines Screen NEGATIVE NEGATIVE Urine Benzodiazepines Screen NEGATIVE NEGATIVE Urine Cocaine Screen NEGATIVE NEGATIVE Urine Marijuana (THC) Screen NEGATIVE NEGATIVE Influenza Type A Antigen Negative For Type A NEGATIVE Influenza Type B Antigen Negative For Type B NEGATIVE SARS-CoV-2, RNA, NAAT NEGATIVE SARS CoV-2 NEGATIVE Group A Streptococcus Rapid negative NEGATIVE White Cell Morphology Comment See comments Total Creatine Kinase 29 21-232 U/L Troponin I High Sensitivity 11 4-75 ng/L HIV (1&2) Antibody Preliminary Positive *A Negative HIV P24 Antigen, Qualitative Preliminary Positive *A Negative DIAGNOSTICS / RADIOLOGY: PATIENT: CHARY HERNANDEZ MR#: [id number] : 1980 SEX: M AGE: 44 LOCATION: ED ORDER 155 STATUS: REG ER REPORT#: [id number] SERVICE 55 REASON: fever ORDERING PHYSICIAN: LETITIA CAMPA MD PROCEDURE: CXR1VW - CHEST 1VW ADDENDUM REPORT ADDENDUM: Results were shared by telephone at 06:14 PM on 01-30-2025 and acknowledged by Letitia Isaac /[facility] EXAM: XR Chest, 1 View. CLINICAL HISTORY: Fever. COMPARISON: None provided. FINDINGS: LUNGS: Limited low inspiratory radiograph. Diffuse alveolar infiltrates are seen throughout the lung curtis. PLEURAL SPACES: No pleural effusion or pneumothorax. HEART: The heart size is normal. BONES: No acute osseous abnormality. IMPRESSION: * Diffuse alveolar infiltrates throughout both lungs, compatible with a diffuse pneumonic process such as pneumonia with an ARDS type picture; correlate clinically. /[facility] DICTATED BY: LEXX GRIGGS MD DATE: 01/30/251813 ASSESSMENT: Acute hypoxic respiratory failure requiring BiPAP support. Multifocal pneumonia. Suspected advanced stage HIV, not on anti-retroviral therapy, POA. Suspected Pneumocystis pneumonia. Sepsis. Oral candidiasis. Morbid obesity. PLAN: Start doxycycline 100 mg IV every12 hours. Continue Bactrim IV. Continue Zosyn. Continue fluconazole IV. Continue Solu-Medrol. Continue oxygen support currently on BiPAP. Obtain hepatitis C with reflex to PCR, hepatitis C Ami by PCR . Obtain pneumocystic smear, rubeola Igg/Igm panel, Abacavir Hypersens, Obtain HIV genotype integrase, HIV-1 RNA by PCR, CD4 % and absolute. Continue critical care support. Thank you for allowing ID to participate in the care of this patient. This case was reviewed and discussed with my supervising physician Dr. Cornelius and the above assessment and plan was formulated and agreed upon. ATTESTATION BY PHYSICIAN I have seen and examined the patient. I reviewed the documentation, medical decision making, and treatment plan as noted by the mid-level provider above. I agree with the findings and plan of care. MIRZA CORNELIUS MD, [facility] Jan 31, 2025 18:13
--- NOTE | 2025-01-31 19:11 | NUR ---
Pt received on BIPAP settings 21/10 18 60%. Allevyn in place. no redness or skin breakdown noted.
--- NOTE | 2025-01-31 20:53 | HMCSR ---
APPROVED REPORT EXAM: Two-dimensional and M-mode echocardiogram with Doppler and color Doppler. INDICATION ICD: R06.02 Shortness of breath 2D Dimensions RVDd 4.5 cm LVEF(%) 58.7 (>50%) LVED Vol(simp.) 152.0 mL IVSd 1.2 (0.7-1.1cm) FS(%) 32 % LVES Vol(simp.) 70.0 mL LVDd 6.1 (3.8-5.6cm) LA (2D) 4.0 (1.6-4.0cm) LVEF(%, simp.) 54 % PWd 0.8 (0.7-1.1cm) Ao Root(2D) 3.4 (2.0-3.7cm) LA ESV INDEX (BP) 26.38 mL/m2 IVSs 1.5 cm LVOT diam 2.7 (1.8-2.4cm) LVDs 4.1 (2.5-4.0cm) IVC diam 2.7 cm PWs 1.1 cm Deformation Strain Apical 4 -16.1 % Apical 2 -16.4 % Apical 3 -17.4 % Global Strain -16.6 % M-Mode Dimensions EPSS 0.3 cm LA (MM) 4.2 (1.6-4.0cm) Ao Root(MM) 4.0 (2.0-3.7cm) Aortic Valve AoV Vmax 1.4 m/s Ao Peak GR 7.3 mmHg LVOT Vmax 1.2 m/s AoV VTI 0.3 m Ao Mean GR 4.7 mmHg LVOT VTI 0.23 m MINH (VMAX) 5.28 cm2 MINH (VTI) 5.3 cm2 Mitral Valve MV E Vmax 88.4 cm/s DECEL Time 146 ms MV A Vmax 76.4 cm/s P 1/2 T 41 ms E/A ratio 1.2 MVA (PHT) 5.4 cm2 TDI E/E' Medial 10.2 E/E' Lateral 10.5 Medial E' Peak V 8.64 cm/s Lateral E' Peak V 8.43 cm/s Pulmonary Valve PV Vmax 0.8 m/s PV Peak GR 2.3 mmHg Tricuspid Valve TR Vmax 1.1 m/s RAP (EST) 8 mmHg RVSP 12.9 mmHg TR Peak GR 4.9 mmHg Left Ventricle The left ventricle is normal size. GLS -16.0% There is normal LV segmental wall motion. There is mild left ventricular wall thickness. LVEF is 55%. The LV diastolic function was unable to be assessed due to atrial arrhythmia. Right Ventricle The right ventricle is normal size. The right ventricular systolic function is normal. Atria The left atrium size is normal. The right atrium size is normal. Aortic Valve The aortic valve is normal in structure. No aortic regurgitation is present. There is no aortic valvular stenosis. Mitral Valve The mitral valve is normal in structure. There is trace of mitral valve regurgitation noted. There is no mitral valve stenosis. Tricuspid Valve The tricuspid valve is normal in structure. There is no tricuspid valve regurgitation noted. Pulmonic Valve The pulmonary valve is normal in structure. There is mild pulmonic valvular regurgitation. Great Vessels The aortic root is normal in size. IVC is dilated and collapses >50% with inspiration. Pericardium There is no pericardial effusion. Other Information Quality : Technically diffcult study due to body habitus Conclusion LVEF is 55%.
[2025-01-31 21:02] LABS: ABG BASE EXCESS -2.8 mmol/L (-2.0-3.0); ABG HCO3 21.1 mmol/L (21.0-28.0); ABG OXYGEN SATURATION 97.4 % (94.0-98.0); ABG PCO2 34 mmHg (35-48); ABG PH 7.410 (7.350-7.450); CARBON MONOXIDE 0.1 % (0.5-1.5); PO2, ARTERIAL BG 93.9 mmHg (83.0-108.0); TEMPERATURE, CELSIUS BG 37.0 CELSIUS (35.5-37.0)
[2025-02-01] VITALS (104 sets, daily range): BP systolic 109–146; BP diastolic 57–100; PULSE 72–117; RESP 23–51; TEMP 98.2–100.6; O2SAT 93–99
[2025-02-01 04:34] LABS: IMMATURE GRANULOCYTE ABSOLUTE 0.07 K/uL (0-1); NUCLEATED RED BLOOD CELLS 0.0 % (0.0-0.19); PLATELET COUNT (AUTO) 273 K/uL (130-400); RED BLOOD CELL COUNT(AUTO) 3.78 MIL/uL (4.50-6.20); RED CELL DISTRIBUTION WIDTH 13.4 % (11.0-15.5); WHITE BLOOD COUNT (AUTO) 6.2 K/uL (4.8-10.8)
[2025-02-01 04:54] LABS: ASPARTATE AMINOTRANSFERASE 89.0 U/L (10-37); CREATINE KINASE, TOTAL 32.0 U/L (21-232); CREATININE 2.1 mg/dL (0.5-1.3); GLOMERULAR FILTR. RATE CALC 40.0 mL/min (>90); GLUCOSE,RANDOM 276.0 mg/dL (70-105); SODIUM SERUM 138.0 mmol/L (136-145); TOTAL PROTEIN, SERUM 7.5 g/dL (6.0-8.3); UREA NITROGEN, BLOOD 46.0 mg/dL (7-18)
[2025-02-01 08:02] LABS: ABG BASE EXCESS -5.3 mmol/L (-2.0-3.0); ABG HCO3 17.5 mmol/L (21.0-28.0); ABG OXYGEN SATURATION 97.8 % (94.0-98.0); ABG PCO2 27 mmHg (35-48); ABG PH 7.436 (7.350-7.450); CARBON MONOXIDE 0.3 % (0.5-1.5); DEVICE COMMENT RN JOSE; PO2, ARTERIAL BG 122.4 mmHg (83.0-108.0); TEMPERATURE, CELSIUS BG 37.0 CELSIUS (35.5-37.0)
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
--- NOTE | 2025-02-01 11:55 | NUR ---
[facility] ICU Skin Assessment: Patient assessed by wound healing team. Patient with no wounds or skin breakdown noted. Assessment and recommendations provided to primary nurse. Education provided.
[2025-02-01 12:13] LABS: HIV SCREEN 4TH GENERATION Preliminary Reactive (Non Reactive)
--- NOTE | 2025-02-01 12:58 | HMCIMG ---
Prior study from CHEST 1VW REASON: PNEUMONIA COMPARISON: Prior study from 01/31/2025 is available. FINDINGS: Single view of the chest was obtained. Lungs demonstrate ill-defined patchy infiltrate in right lower lung which was seen before and appears to be unchanged. The left lung appears to be clear. There is a right-sided PIC catheter with tip is to be a vena cava.. Heart size is normal. There is no pulmonary vascular congestion. Mediastinum and bony thorax appear unremarkable. IMPRESSION: 1. Unchanged early infiltrate in right lower lung 2. Right-sided PICC catheter to be in satisfactory position 3. The study is unchanged from prior study..
[2025-02-01 13:13] LABS: ABSOLUTE CD4 COUNT 19 /uL (359-1519); ABSOLUTE CD8 SUPPRESSOR 457 /uL (109-897); Immature granuloctyes absolute 0.1 x10E3/uL (0.0-0.1); Lymphocytes(Absolute) 0.6 x10E3/uL (0.7-3.1); MCV 90 fL (79-97); PERCENT CD4 CELLS 3.1 % (30.8-58.5); PERCENT CD8 POS. LYMPH. 76.2 % (12.0-35.5)
[2025-02-01 13:29] LABS: PHOSPHORUS 4.6 mg/dL (2.5-4.9)
--- NOTE | 2025-02-01 13:58 | PN ---
[facility] PROGRESS NOTE Date Patient Seen: Feb 01, 2025 Time of Visit: 13:55 Supervising Physician: ISAC MATHEW MD Primary Care Physician: [Avi LESTER] Outpatient Specialists: [ ] Inpatient Consults: [Dr. Prince, [facility] team-ICU] PROBLEM LIST: Acute hypoxemic respiratory failure present on admission requiring noninvasive ventilator support with BiPAP ARDS Community-acquired pneumonia suspected Pneumocystis Toxic metabolic encephalopathy on admission Acute sepsis on admission without septic shock secondary to community-acquired pneumonia HIV positive newly diagnosed stage IV. Not on anti-retroviral medication Elevated D-dimer on admission, ruled out for PE Immunocompromise status Suspected TB Obstructive sleep apnea, untreated/undiagnosed Morbid obesity, BMI 33.6 INTERVAL HISTORY: Patient is now on continuous BiPAP. FiO2 requirements of 60% with an O2 saturation of 92% Increased and labored breathing, positive for intercostal muscle retractions, tired and obtunded Patient is off pressors, off sedation Weak bed ridden, critically ill REVIEW OF SYSTEMS: Unable to perform 12 point ROS PHYSICAL EXAM: GENERAL: Continuous BiPAP, nonverbal. Persistent respiratory distress with hypoxia HEENT: EOMI, Sclera non icteric, moist mucosa NECK: Supple, no JVD, trachea midline LUNGS: Bilateral crackles, no rhonchi. No wheezing. Intercostal retractions HEART: Regular rate and rhythm. Normal S1 and S2, without murmurs ABD: Abdomen soft, nontender. Bowel sounds present, obese EXT: No clubbing cyanosis or edema : Dias in situ NEURO: Obtunded Vital Signs (last 8hr) Date Time Temp Pulse Resp B/P (MAP) Pulse Ox O2 Delivery O2 Flow Rate FiO2 02/01/25 12:22 94 32 122/77 (92) 94 40 02/01/25 12:15 97 31 113/73 (86) 93 40 02/01/25 12:10 97 30 40 02/01/25 12:00 99 32 120/57 (78) 93 40 02/01/25 12:00 99.3 02/01/25 11:45 99.3 95 30 111/66 (81) 91 40 02/01/25 11:30 101 31 120/74 (89) 94 40 02/01/25 11:15 102 50 111/64 (80) 93 40 02/01/25 11:01 88 29 02/01/25 11:00 88 26 40 02/01/25 11:00 103 35 110/65 (80) 99 40 02/01/25 10:45 87 29 124/75 (91) 97 40 02/01/25 10:30 88 28 131/82 (98) 94 40 02/01/25 10:15 85 27 129/83 (98) 94 40 02/01/25 10:00 88 28 128/83 (98) 95 40 02/01/25 09:45 89 27 146/84 (104) 94 40 02/01/25 09:30 40 02/01/25 09:30 87 29 126/80 (95) 94 50 02/01/25 09:15 87 26 119/74 (89) 97 50 02/01/25 09:00 81 25 120/71 (87) 97 50 02/01/25 08:45 81 28 123/70 (87) 97 50 02/01/25 08:30 85 30 119/72 (88) 96 50 02/01/25 08:15 98.2 02/01/25 08:15 90 28 122/75 (91) 96 60 02/01/25 08:00 97 Bi-PAP+ 50 02/01/25 08:00 97 Bi-PAP+ 50 02/01/25 08:00 98.2 94 29 121/71 (88) 96 60 02/01/25 07:45 95 30 120/71 (87) 97 60 02/01/25 07:30 99 30 125/71 (89) 98 60 02/01/25 07:15 98 28 120/69 (86) 98 60 02/01/25 07:00 110 34 114/57 (76) 99 60 02/01/25 06:57 87 32 02/01/25 06:49 72 27 60 02/01/25 06:00 78 27 129/80 (96) 99 60 LABS: Hematology Labs: Test 02/01/25 04:20 01/31/25 13:07 01/30/25 15:58 Range/Units White Blood Count 6.2 # 4.8-10.8 K/uL Red Blood Count 3.78 L 4.50-6.20 MIL/uL Hemoglobin 10.4 L 14.0-18.0 g/dL Hematocrit 32.6 L 42-54 % Mean Corpuscular Volume 86.2 79-99 fL Mean Corpuscular Hemoglobin 27.5 27.0-33.0 pg Mean Corpuscular Hemoglobin Concent 31.9 L 32.0-36.0 g/dL Red Cell Distribution Width 13.4 11.0-15.5 % Platelet Count 273 130-400 K/uL Mean Platelet Volume 10.1 7.5-10.5 fL Immature Granulocyte % (Auto) 1.1 H 0-1 % Neutrophils (%) (Auto) 90.5 H 40.0-77.0 % Lymphocytes (%) (Auto) 6.1 L 21.0-51.0 % Monocytes (%) (Auto) 2.3 L 3.0-13.0 % Eosinophils (%) (Auto) 0.0 0.0-8.0 % Basophils (%) (Auto) 0.0 0.0-5.0 % Neutrophils # (Auto) 5.6 1.8-7.7 K/uL Lymphocytes # (Auto) 0.4 L 1.0-4.8 K/uL Monocytes # (Auto) 0.1 0.1-1.0 K/uL Eosinophils # (Auto) 0.00 0.00-0.70 K/uL Basophils # (Auto) 0.00 0.00-0.20 K/uL Absolute Immature Granulocyte (auto 0.07 0-1 K/uL Nucleated Red Blood Cells 0.0 0.0-0.19 % MCHC (Send Out) 31.4 L 31.5-35.7 g/dL RDW Coeffic of Variation (Send Out) 12.9 11.6-15.4 % Immature Granulocytes % 1 Not Estab. % Neutrophils % 88 Not Estab. % Lymphocytes % 8 Not Estab. % Monocytes % 3 Not Estab. % Eosinophils % 0 Not Estab. % Basophils % 0 Not Estab. % Absolute Segmented Neutrophils 6.9 1.4-7.0 x10E3/uL Total Absolute Lymphocytes 0.6 L 0.7-3.1 x10E3/uL Absolute Monocytes (CBC) 0.3 0.1-0.9 x10E3/uL Absolute Eosinophils (CBC) 0.0 0.0-0.4 x10E3/uL Absolute Basophils (CBC) 0.0 0.0-0.2 x10E3/uL Nucleated RBC/100 WBC Differential . Immature Blood Cells . Absolute Immature Blood Cells 0.1 0.0-0.1 x10E3/uL Hematology Comments . White Cell Morphology Comment See comments Chemistry Labs: Test 02/01/25 13:05 02/01/25 11:10 02/01/25 04:20 01/31/25 04:34 Range/Units Lactic Acid Level 2.1 0.8-2.5 mmol/L Phosphorus Level 4.6 2.5-4.9 mg/dL Whole Blood Glucose 232 H 70-110 MG/DL Sodium Level 138 136-145 mmol/L Potassium Level 4.7 3.5-5.1 mmol/L Chloride Level 107 101-111 mmol/L Carbon Dioxide Level 22 21-32 mmol/L Blood Urea Nitrogen 46 H 7-18 mg/dL Creatinine 2.1 H 0.5-1.3 mg/dL Glomerular Filtration Rate Calc 40 >90 mL/min Random Glucose 276 #H 70-105 mg/dL Total Calcium 7.6 L 8.5-10.1 mg/dL Magnesium Level 2.70 H 1.80-2.40 mg/dL Total Bilirubin 0.5 0.2-1.0 mg/dL Aspartate Amino Transf (AST/SGOT) 89 H 10-37 U/L Alanine Aminotransferase (ALT/SGPT) 24 12-78 U/L Alkaline Phosphatase 200 H 50-136 U/L Total Creatine Kinase 32 21-232 U/L Total Protein 7.5 6.0-8.3 g/dL Albumin 1.2 L 3.5-5.0 g/dL Direct Bilirubin 0.5 H 0.0-0.3 mg/dL Lactate Dehydrogenase 568 H 81-234 U/L Procalcitonin 1.55 H 0.05-0.5 ng/mL Test 01/30/25 23:48 01/30/25 15:58 Range/Units B-Type Natriuretic Peptide 31 0-100 pg/mL Troponin I High Sensitivity 11 4-75 ng/L Coagulation Labs: Test 01/30/25 23:48 Range/Units D-Dimer Quantitative (PE/DVT) 2330 *H 0-500 ng/mL DIAGNOSTICS / RADIOLOGY RESULTS: Chest x-ray with bilateral pulmonary infiltrates right greater than left PLAN Patient is critically ill with respiratory distress Currently on BiPAP continuously Tired with accessory muscle use Talked to family and explain patient might require intubation and placement on mechanical ventilatory support Continue present medical management in the ICU Follow recommendations from Infectious and Disease specialist Poor prognosis NEURO: Minimize central acting medications as possible. Fall Precautions. Well lighted room through the day and minimize interruptions through the night to prevent acute delirium. PULMONARY: Supplemental 02 as needed Titrate Fio2 to keep Spo2 > or = 90% DuoNebs and CPT as needed IS hourly while awake for pulmonary hygiene Out of bed to chair as tolerated VAP Bundle Vent/BIPAP Settings: [ BIPAP setting 12/11 rate of 18 FiO2 60%. ] CARDIOVASCULAR: Follow hemodynamics. Titrate vasopressor to keep MAP >65 or systolic blood pressure >95mmHg DRIPS: [Precedex ] LINES: [PIV] GI & NUTRITION: Continue nutritional support Aspirations precautions Prokinetic agents and laxatives as needed KIDNEYS & ELECTROLYTES: Strict monitoring of intake and output Daily weights Avoid nephrotoxic agents Monitor electrolytes and replace as needed Dias care-prevent CAUTI per nursing Goal urine output of 30mL/hr or 0.5mL/kg/hr Urine output: [ ] Fluid Balance: [ ] ENDOCRINE: Maintain blood glucose between 100-180 at all times. Insulin sliding scale for blood glucose management INFECTIOUS DISEASE: Trend temperature. Lara-culture if febrile. Micro: [ ] Antibiotics: [Vancomycin 01/30- IV Fluconazole: 01/30- IV Sulfa/TMP: 01/30-] HEMATOLOGY & COAGULATION: Monitor H&H. Keep Hgb > 7 Transfuse 1 unit of PRBC for Hgb < 7 Transfuse 1 pack of platelets of platelets < 20, 000 Watch for any signs and symptoms of bleeding SKIN: Pressure ulcer prevention per facility protocol Rehab: PT/OT Prophylaxis: GI: [Pepcid] DVT: [Heparin ] Code Status: Full Resuscitation Disposition: [ICU ] Other: Total patient care time: 35 minutes I personally scribed for ISAC MATHEW MD ([email or web address]) on 02/01/25 at 13:58. Electronically submitted by Erick Cruz ([email or web address]). ISAC MATHEW MD Feb 01, 2025 13:58
--- NOTE | 2025-02-01 22:02 | PN ---
INFECTIOUS DISEASE PROGRESS NOTE Date of Service: Feb 01, 2025 SUBJECTIVE: This is a 44-year-old male patient who was seen and examined at bedside in room 217. Patient continues on respiratory failure and on BiPAP support. Patient had a fever of 102.6 throughout the night and current temperature is 99.3. Patient is on a acute renal failure, BUN of 46 and creatinine of 2.1. We will discontinue Zosyn and start patient on cefepime and will continue on doxycycline IV, Bactrim IV and fluconazole IV. Patient's sister who also makes patient's decisions was present in the room and was updated with patient's status and current plan. We will continue to follow up on immunology and serology results. PHYSICAL EXAM EYES: Anicteric. Pupils equal and reactive. HENT: Dry Oral mucosa. Oral thrush. NECK: Supple, no JVD or thyromegaly. LUNGS: Diminished breaths sounds and on BiPAP support. CARDIOVASCULAR: S1, S2 regular. No murmur heard. ABDOMEN: Soft, non tender, bowel sounds present, no organomegaly. CENTRAL NERVOUS SYSTEM: Unable to answer questions due to severe respiratory distress. SKIN: Rash on abdomen and lower extremities. LYMPHATICS: No peripheral lymphadenopathy MUSCULOSKELETAL: No joint swelling, erythema or tenderness. EXTREMITIES: No cyanosis or clubbing. Weakness. BACK: No deformity, no pressure ulcer. GENITOURINARY: No dysuria or hematuria. Dias catheter. Vital Sign (Last 12 Hours) 02/01/25 02/01/25 02/01/25 02/01/25 10:15 10:30 10:45 11:00 Pulse 85 88 87 103 Resp 27 28 29 35 B/P (MAP) 129/83 (98) 131/82 (98) 124/75 (91) 110/65 (80) Pulse Ox 94 94 97 99 FiO2 40 40 40 40 02/01/25 02/01/25 02/01/25 02/01/25 11:00 11:01 11:15 11:30 Pulse 88 88 102 101 Resp 26 29 50 31 B/P (MAP) 111/64 (80) 120/74 (89) Pulse Ox 93 94 FiO2 40 40 40 02/01/25 02/01/25 02/01/25 02/01/25 11:45 12:00 12:00 12:00 Temp 99.3 99.3 Pulse 95 99 Resp 30 32 B/P (MAP) 111/66 (81) 120/57 (78) Pulse Ox 91 95 93 O2 Delivery Bi-PAP+ FiO2 40 40 40 02/01/25 02/01/25 02/01/25 02/01/25 12:10 12:15 12:22 12:45 Pulse 97 97 94 93 Resp 30 31 32 33 B/P (MAP) 113/73 (86) 122/77 (92) 118/76 (90) Pulse Ox 93 94 94 FiO2 40 40 40 40 02/01/25 02/01/25 02/01/25 02/01/25 13:00 13:15 13:30 13:45 Pulse 93 93 87 98 Resp 31 34 33 32 B/P (MAP) 124/78 (93) 126/74 (91) 132/85 (101) 124/77 (93) Pulse Ox 94 94 94 94 FiO2 40 40 40 40 02/01/25 02/01/25 02/01/25 02/01/25 14:00 14:12 14:15 14:30 Pulse 95 94 108 104 Resp 33 29 37 35 B/P (MAP) 128/79 (95) 129/79 (96) 128/75 (92) Pulse Ox 95 99 94 FiO2 40 40 40 02/01/25 02/01/25 02/01/25 02/01/25 14:33 14:45 15:00 15:15 Pulse 117 88 110 92 Resp 32 32 35 51 B/P (MAP) 125/77 (93) 125/100 (108) 124/77 (93) Pulse Ox 93 92 93 FiO2 40 40 40 40 02/01/25 02/01/25 02/01/25 02/01/25 15:30 15:45 16:00 16:00 Temp 100.0 Pulse 98 99 98 Resp 31 32 32 B/P (MAP) 121/77 (92) 118/73 (88) 131/80 (97) Pulse Ox 93 93 95 FiO2 40 40 40 02/01/25 02/01/25 02/01/25 02/01/25 16:00 16:15 16:30 16:45 Pulse 97 97 97 Resp 37 35 34 B/P (MAP) 135/83 (100) 131/82 (98) 145/94 (111) Pulse Ox 96 94 93 95 O2 Delivery Bi-PAP+ FiO2 40 40 40 40 02/01/25 02/01/25 02/01/25 02/01/25 17:00 17:15 17:30 17:45 Pulse 96 97 94 91 Resp 32 32 33 31 B/P (MAP) 140/85 (103) 137/86 (103) 131/74 (93) 124/76 (92) Pulse Ox 94 95 95 95 FiO2 40 40 40 40 02/01/25 02/01/25 02/01/25 02/01/25 18:00 18:15 18:45 19:02 Pulse 89 85 86 86 Resp 27 28 27 30 B/P (MAP) 124/77 (93) 129/78 (95) Pulse Ox 95 95 FiO2 40 40 40 Intake & Output (last 24hrs) 01/31/25 01/31/25 02/01/25 15:00 23:00 07:00 Intake Total 1621.2 ml 975.4 ml 1162.9 ml Output Total 925 ml 425 ml Balance 1621.2 ml 50.4 ml 737.9 ml LABS: Laboratory: Test 02/01/25 18:19 02/01/25 13:05 02/01/25 08:00 02/01/25 04:20 Range/Units Whole Blood Glucose 204 H 70-110 MG/DL Lactic Acid Level 2.1 0.8-2.5 mmol/L Phosphorus Level 4.6 2.5-4.9 mg/dL Blood Gas Specimen Type Arterial Arterial Blood pH 7.436 7.350-7.450 Arterial Blood Partial Pressure CO2 27 L 35-48 mmHg Arterial Blood Partial Pressure O2 122.4 H 83.0-108.0 mmHg Arterial Blood HCO3 17.5 L 21.0-28.0 mmol/L Arterial Blood Oxygen Saturation 97.8 94.0-98.0 % Arterial Blood Base Excess -5.3 L -2.0-3.0 mmol/L Hemoglobin (Blood Gas) 11.9 L 13.5-17.5 g/dL Sodium (Blood Gas) 143 136-145 MMOL/L Bedside Potassium (Blood Gas) 4.5 3.4-4.5 MMOL/L Bedside Chloride (Blood Gas) 113 H 98-107 MMOL/L Bedside Glucose (Blood Gas) 257 H 65-95 MG/DL Bedside Ionized Calcium (Blood Gas) 1.13 L 1.15-1.33 MMOL/L Bedside Lactic Acid (Blood Gas) 1.64 H 0.36-0.75 MMOL/L Blood Gas Temperature 37.0 35.5-37.0 CELSIUS Blood Gas Respiration Rate 18.0 min. Blood Gas Vent Mode [id number] ROOM AIR FiO2 60.0 % Blood Gas PEEP 9 cm H2O Blood Gas Specimen Comment RN TRACI White Blood Count 6.2 # 4.8-10.8 K/uL Red Blood Count 3.78 L 4.50-6.20 MIL/uL Hemoglobin 10.4 L 14.0-18.0 g/dL Hematocrit 32.6 L 42-54 % Mean Corpuscular Volume 86.2 79-99 fL Mean Corpuscular Hemoglobin 27.5 27.0-33.0 pg Mean Corpuscular Hemoglobin Concent 31.9 L 32.0-36.0 g/dL Red Cell Distribution Width 13.4 11.0-15.5 % Platelet Count 273 130-400 K/uL Mean Platelet Volume 10.1 7.5-10.5 fL Immature Granulocyte % (Auto) 1.1 H 0-1 % Neutrophils (%) (Auto) 90.5 H 40.0-77.0 % Lymphocytes (%) (Auto) 6.1 L 21.0-51.0 % Monocytes (%) (Auto) 2.3 L 3.0-13.0 % Eosinophils (%) (Auto) 0.0 0.0-8.0 % Basophils (%) (Auto) 0.0 0.0-5.0 % Neutrophils # (Auto) 5.6 1.8-7.7 K/uL Lymphocytes # (Auto) 0.4 L 1.0-4.8 K/uL Monocytes # (Auto) 0.1 0.1-1.0 K/uL Eosinophils # (Auto) 0.00 0.00-0.70 K/uL Basophils # (Auto) 0.00 0.00-0.20 K/uL Absolute Immature Granulocyte (auto 0.07 0-1 K/uL Nucleated Red Blood Cells 0.0 0.0-0.19 % Sodium Level 138 136-145 mmol/L Potassium Level 4.7 3.5-5.1 mmol/L Chloride Level 107 101-111 mmol/L Carbon Dioxide Level 22 21-32 mmol/L Blood Urea Nitrogen 46 H 7-18 mg/dL Creatinine 2.1 H 0.5-1.3 mg/dL Glomerular Filtration Rate Calc 40 >90 mL/min Random Glucose 276 #H 70-105 mg/dL Total Calcium 7.6 L 8.5-10.1 mg/dL Magnesium Level 2.70 H 1.80-2.40 mg/dL Total Bilirubin 0.5 0.2-1.0 mg/dL Aspartate Amino Transf (AST/SGOT) 89 H 10-37 U/L Alanine Aminotransferase (ALT/SGPT) 24 12-78 U/L Alkaline Phosphatase 200 H 50-136 U/L Total Creatine Kinase 32 21-232 U/L Total Protein 7.5 6.0-8.3 g/dL Albumin 1.2 L 3.5-5.0 g/dL Test 01/31/25 13:07 01/31/25 04:34 01/30/25 23:48 01/30/25 22:07 Range/Units MCHC (Send Out) 31.4 L 31.5-35.7 g/dL RDW Coeffic of Variation (Send Out) 12.9 11.6-15.4 % Immature Granulocytes % 1 Not Estab. % Neutrophils % 88 Not Estab. % Lymphocytes % 8 Not Estab. % Monocytes % 3 Not Estab. % Eosinophils % 0 Not Estab. % Basophils % 0 Not Estab. % Absolute Segmented Neutrophils 6.9 1.4-7.0 x10E3/uL Total Absolute Lymphocytes 0.6 L 0.7-3.1 x10E3/uL Absolute Monocytes (CBC) 0.3 0.1-0.9 x10E3/uL Absolute Eosinophils (CBC) 0.0 0.0-0.4 x10E3/uL Absolute Basophils (CBC) 0.0 0.0-0.2 x10E3/uL Nucleated RBC/100 WBC Differential . Immature Blood Cells . Absolute Immature Blood Cells 0.1 0.0-0.1 x10E3/uL Hematology Comments . Percent CD4 Cells 3.1 L 30.8-58.5 % Absolute CD4 Count 19 L 359-1519 /uL T-Lymphocyte CD4/CD8 Ratio 0.04 L 0.92-3.72 Percent CD8 Cells 76.2 H 12.0-35.5 % Absolute CD8 Count 457 109-897 /uL Hepatitis C Antibody Non-Reactive Nonreactive Direct Bilirubin 0.5 H 0.0-0.3 mg/dL Lactate Dehydrogenase 568 H 81-234 U/L Procalcitonin 1.55 H 0.05-0.5 ng/mL D-Dimer Quantitative (PE/DVT) 2330 *H 0-500 ng/mL B-Type Natriuretic Peptide 31 0-100 pg/mL HIV (1&2) Ag and Ab, 4th Generation Preliminary Reactive Non Reactive Blood Gas Flow-by 15.00 0.00-15.00 L/min ASSESSMENT: Acute hypoxic respiratory failure requiring BiPAP support. Multifocal pneumonia. Suspected advanced stage HIV, not on anti-retroviral therapy, POA. Suspected Pneumocystis pneumonia. Sepsis. Acute renal failure. Oral candidiasis. Morbid obesity. PLAN: Discontinue Zosyn. Start cefepime 2 g IV q.12. Continue doxycycline IV. Continue Bactrim IV. Continue fluconazole IV. Continues BiPAP support. Continue Solu-Medrol. We will follow up on the pneumocystic smear, rubeola Igg/Igm panel, Abacavir Hypersens, We will follow up on the final serology results. Continue critical care support. This case was reviewed and discussed with my supervising physician Dr. Sigala and the above assessment and plan was formulated and agreed upon. ATTESTATION BY PHYSICIAN I have seen and examined the patient. I reviewed the documentation, medical decision making, and treatment plan as noted by the mid-level provider above. I agree with the findings and plan of care. MIRZA SIGALA MD, MIRTA L [facility] Feb 01, 2025 22:02
[2025-02-02] VITALS (105 sets, daily range): BP systolic 117–135; BP diastolic 61–86; PULSE 71–101; RESP 22–109; TEMP 98.3–99.4; O2SAT 92–100
[2025-02-02 03:09] LABS: RUBEOLA (MEASLES) IGG 18.3 AU/mL (Immune >16.4)
[2025-02-02 03:17] LABS: ABG BASE EXCESS -6.8 mmol/L (-2.0-3.0); ABG HCO3 15.8 mmol/L (21.0-28.0); ABG OXYGEN SATURATION 95.4 % (94.0-98.0); ABG PCO2 24 mmHg (35-48); ABG PH 7.441 (7.350-7.450); CARBON MONOXIDE 0.1 % (0.5-1.5); DEVICE COMMENT LR,RN JAMES; PO2, ARTERIAL BG 83.0 mmHg (83.0-108.0); TEMPERATURE, CELSIUS BG 37.0 CELSIUS (35.5-37.0)
--- NOTE | 2025-02-02 03:56 | NUR ---
Patient not able to provide sputum sample.
--- NOTE | 2025-02-02 03:57 | NUR ---
Changed to full face mask.
[2025-02-02 05:46] LABS: NUCLEATED RED BLOOD CELLS 0.0 % (0.0-0.19); PLATELET COUNT (AUTO) 240.0 K/uL (130-400); RED BLOOD CELL COUNT(AUTO) 3.56 MIL/uL (4.50-6.20); RED CELL DISTRIBUTION WIDTH 13.5 % (11.0-15.5); WHITE BLOOD COUNT (AUTO) 6.5 K/uL (4.8-10.8)
[2025-02-02 06:15] LABS: ASPARTATE AMINOTRANSFERASE 61.0 U/L (10-37); CREATININE 1.6 mg/dL (0.5-1.3); GLOMERULAR FILTR. RATE CALC 55.0 mL/min (>90); GLUCOSE,RANDOM 245.0 mg/dL (70-105); PHOSPHORUS 3.2 mg/dL (2.5-4.9); SODIUM SERUM 140.0 mmol/L (136-145); TOTAL PROTEIN, SERUM 6.9 g/dL (6.0-8.3); UREA NITROGEN, BLOOD 45.0 mg/dL (7-18)
[2025-02-02] MEDS: Solu-medROL 40MG VIAL IVP SCH (12:26)
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
--- NOTE | 2025-02-02 16:51 | PN ---
INFECTIOUS DISEASE FOLLOWUP NOTE SUBJECTIVE: The patient is seen and examined at bedside today. The patient has no fever, no chills. No nausea, no vomiting. The patient remained on a BiPAP. Remained in the ICU. Renal function is improving. Family was updated this morning. NG tube could not be placed due to the patient inability to get off the BiPAP. PHYSICAL EXAMINATION: VITAL SIGNS: Temperature 98.7. EYES: No icterus. Pupils equal and reactive. HENT: No oral thrush seen. Moist oral mucosa. NECK: Supple. No JVD or thyromegaly. LUNGS: Crackles bilaterally. No rhonchi. CARDIOVASCULAR: S1 and S2, regular. ABDOMEN: Morbidly obese, soft, nontender. Bowel sounds present. CENTRAL NERVOUS SYSTEM: Awake, alert and oriented x3. No focal deficits. SKIN: The patient has some skin excoriation. LYMPHATIC: No peripheral lymphadenopathy. BACK: No deformity. No pressure ulcer. LABORATORY DATA: CD4 count 19. Blood culture, no growth for 2 days. ASSESSMENT: A 44-year-old male with multiple problems including: * Hypoxic respiratory failure. * Possible Pneumocystic jirovesci pneumonia. * Newly diagnosed diabetes mellitus. * Morbid obesity. * Oral candidiasis. * Skin lesions. * . PLAN: * Continue critical support. * Continue BiPAP trial. * Continue Bactrim. * Continue cefepime. * Continue doxycycline. * Monitor electrolytes. * The patient will follow up closely. TID: [id number] RECEIPT: [id number] [facility]
--- NOTE | 2025-02-02 18:35 | NUR ---
pt received with bipap on with settings of 15/10,18,40%. No redness or skin breakdown noted. allevyn in place. Sat 96%.
--- NOTE | 2025-02-02 20:02 | PN ---
[facility] PROGRESS NOTE Date Patient Seen: Feb 02, 2025 Time of Visit: 19:58 Supervising Physician: ISAC MATHEW MD Primary Care Physician: [Avi LESTER] Outpatient Specialists: [ ] Inpatient Consults: [Dr. Prince, [facility] team-ICU] PROBLEM LIST: Acute hypoxemic respiratory failure present on admission requiring noninvasive ventilator support with BiPAP ARDS Community-acquired pneumonia suspected Pneumocystis Toxic metabolic encephalopathy on admission Acute sepsis on admission without septic shock secondary to community-acquired pneumonia HIV positive newly diagnosed stage IV. Not on anti-retroviral medication CD4 count: 19 Immunocompromise status Suspected TB Obstructive sleep apnea, untreated/undiagnosed Morbid obesity, BMI 33.6 INTERVAL HISTORY: Patient remains on BiPAP continuously with 60% FiO2 Seems more awake today than yesterday He is trying to talk His O2 saturation is 92% no fevers reported Creatinine is 1.6 and CRP 23 Remains on Precedex for anxiety and his Procalcitonin level is elevated No fevers, no chills patient is asking for food REVIEW OF SYSTEMS: 12 points review of systems done, all pertinent information has been addressed. PHYSICAL EXAM: GENERAL: Continuous BiPAP, nonverbal. Persistent respiratory distress with hypoxia HEENT: EOMI, Sclera non icteric, moist mucosa NECK: Supple, no JVD, trachea midline LUNGS: Grossly clear, decreased air entry. No wheezing HEART: Regular rate and rhythm. Normal S1 and S2, without murmurs ABD: Abdomen soft, nontender. Bowel sounds present, obese EXT: No clubbing cyanosis or edema : Dias in situ NEURO: Obtunded Vital Signs (last 8hr) Date Time Temp Pulse Resp B/P (MAP) Pulse Ox O2 Delivery O2 Flow Rate FiO2 02/02/25 18:45 80 30 133/78 (96) 96 40 02/02/25 18:33 80 29 40 02/02/25 18:30 80 30 127/81 (96) 94 40 02/02/25 18:29 80 29 02/02/25 18:15 80 29 127/72 (90) 94 40 02/02/25 18:00 83 32 124/75 (91) 94 40 02/02/25 17:45 80 27 119/71 (87) 92 40 02/02/25 17:30 83 32 120/73 (89) 94 40 02/02/25 17:15 85 29 121/74 (90) 92 40 02/02/25 17:00 82 29 117/72 (87) 93 40 02/02/25 16:45 83 29 121/75 (90) 98 40 02/02/25 16:30 84 30 132/68 (89) 100 40 02/02/25 16:15 85 31 135/85 (102) 99 60 02/02/25 16:04 98.2 02/02/25 16:00 99 Bi-PAP+ 100 02/02/25 16:00 88 29 131/79 (96) 99 100 02/02/25 15:45 83 28 123/71 (88) 90 100 02/02/25 15:30 91 30 124/70 (88) 88 100 02/02/25 15:30 91 31 123/71 (88) 90 100 02/02/25 15:00 96 31 123/69 (87) 89 40 02/02/25 14:45 101 32 119/67 (84) 91 40 02/02/25 14:40 86 33 40 02/02/25 14:30 80 31 125/72 (89) 96 40 02/02/25 14:25 78 30 02/02/25 14:15 77 27 129/77 (94) 92 40 02/02/25 14:00 71 22 123/76 (92) 90 40 02/02/25 13:45 83 28 123/71 (88) 90 40 02/02/25 13:30 73 25 125/75 (92) 93 40 02/02/25 13:15 76 27 130/78 (95) 93 40 02/02/25 13:00 78 28 130/76 (94) 92 40 02/02/25 12:45 77 27 128/73 (91) 93 40 02/02/25 12:30 79 31 126/77 (93) 92 40 02/02/25 12:15 81 29 123/85 (98) 91 40 02/02/25 12:00 92 Bi-PAP+ 40 02/02/25 12:00 89 30 121/69 (86) 92 40 02/02/25 12:00 98.4 LABS: Hematology Labs: Test 02/02/25 05:33 02/01/25 04:20 Range/Units White Blood Count 6.5 4.8-10.8 K/uL Red Blood Count 3.56 L 4.50-6.20 MIL/uL Hemoglobin 9.8 L 14.0-18.0 g/dL Hematocrit 30.9 L 42-54 % Mean Corpuscular Volume 86.8 79-99 fL Mean Corpuscular Hemoglobin 27.5 27.0-33.0 pg Mean Corpuscular Hemoglobin Concent 31.7 L 32.0-36.0 g/dL Red Cell Distribution Width 13.5 11.0-15.5 % Platelet Count 240 130-400 K/uL Mean Platelet Volume 10.5 7.5-10.5 fL Nucleated Red Blood Cells 0.0 0.0-0.19 % Immature Granulocyte % (Auto) 1.1 H 0-1 % Neutrophils (%) (Auto) 90.5 H 40.0-77.0 % Lymphocytes (%) (Auto) 6.1 L 21.0-51.0 % Monocytes (%) (Auto) 2.3 L 3.0-13.0 % Eosinophils (%) (Auto) 0.0 0.0-8.0 % Basophils (%) (Auto) 0.0 0.0-5.0 % Neutrophils # (Auto) 5.6 1.8-7.7 K/uL Lymphocytes # (Auto) 0.4 L 1.0-4.8 K/uL Monocytes # (Auto) 0.1 0.1-1.0 K/uL Eosinophils # (Auto) 0.00 0.00-0.70 K/uL Basophils # (Auto) 0.00 0.00-0.20 K/uL Absolute Immature Granulocyte (auto 0.07 0-1 K/uL Chemistry Labs: Test 02/02/25 18:03 02/02/25 05:33 02/01/25 04:20 Range/Units Whole Blood Glucose 252 H 70-110 MG/DL Sodium Level 140 136-145 mmol/L Potassium Level 4.2 3.5-5.1 mmol/L Chloride Level 111 101-111 mmol/L Carbon Dioxide Level 19 L 21-32 mmol/L Blood Urea Nitrogen 45 H 7-18 mg/dL Creatinine 1.6 H 0.5-1.3 mg/dL Glomerular Filtration Rate Calc 55 >90 mL/min Random Glucose 245 H 70-105 mg/dL Lactic Acid Level 2.0 0.8-2.5 mmol/L Total Calcium 6.9 L 8.5-10.1 mg/dL Phosphorus Level 3.2 2.5-4.9 mg/dL Magnesium Level 2.40 1.80-2.40 mg/dL Total Bilirubin 0.4 0.2-1.0 mg/dL Aspartate Amino Transf (AST/SGOT) 61 H 10-37 U/L Alanine Aminotransferase (ALT/SGPT) 22 12-78 U/L Alkaline Phosphatase 161 H 50-136 U/L C-Reactive Protein, Quantitative 23.40 H 0.5-3.0 mg/L Total Protein 6.9 6.0-8.3 g/dL Albumin 1.2 L 3.5-5.0 g/dL Total Creatine Kinase 32 21-232 U/L DIAGNOSTICS / RADIOLOGY RESULTS: [ ] PLAN Continue with BiPAP Patient is not a candidate for bronchoscopy at this time Place NGT for nutritional support Not a candidate for PPN due to high risk of fungal infection Repeat CRP in the morning Repeat chest x-ray follow recommendations from I&D poor prognosis patient remains critically ill. NEURO: Minimize central acting medications as possible. Fall Precautions. Well lighted room through the day and minimize interruptions through the night to prevent acute delirium. PULMONARY: Supplemental 02 as needed Titrate Fio2 to keep Spo2 > or = 90% DuoNebs and CPT as needed IS hourly while awake for pulmonary hygiene Out of bed to chair as tolerated VAP Bundle Vent/BIPAP Settings: [ BIPAP setting 10/ rate of 18 FiO2 60%. ] CARDIOVASCULAR: Follow hemodynamics. Titrate vasopressor to keep MAP >65 or systolic blood pressure >95mmHg DRIPS: [Precedex ] LINES: [PIV] GI & NUTRITION: Continue nutritional support Aspirations precautions Prokinetic agents and laxatives as needed KIDNEYS & ELECTROLYTES: Strict monitoring of intake and output Daily weights Avoid nephrotoxic agents Monitor electrolytes and replace as needed Dias care-prevent CAUTI per nursing Goal urine output of 30mL/hr or 0.5mL/kg/hr Urine output: [ ] Fluid Balance: [ ] ENDOCRINE: Maintain blood glucose between 100-180 at all times. Insulin sliding scale for blood glucose management INFECTIOUS DISEASE: Trend temperature. Lara-culture if febrile. Micro: [ ] Antibiotics: [Vancomycin 01/30- IV Fluconazole: 01/30- IV Sulfa/TMP: 01/30-] HEMATOLOGY & COAGULATION: Monitor H&H. Keep Hgb > 7 Transfuse 1 unit of PRBC for Hgb < 7 Transfuse 1 pack of platelets of platelets < 20, 000 Watch for any signs and symptoms of bleeding SKIN: Pressure ulcer prevention per facility protocol Rehab: PT/OT Prophylaxis: GI: [Pepcid] DVT: [Heparin ] Code Status: Full Resuscitation Disposition: [ICU ] Other: Total patient care time: 35 minutes I personally scribed for ISAC MATHEW MD ([email or web address]) on 02/02/25 at 20:02. Electronically submitted by Erick Cruz ([email or web address]). ISAC MATHEW MD Feb 02, 2025 20:02
--- NOTE | 2025-02-02 20:29 | HMCIMG ---
EXAM: CR Chest, 2 View. CLINICAL HISTORY: pna COMPARISON: 02/01/2025 FINDINGS: LUNGS: Improved right lung aeration with further decrease in the right lower lobe infiltrates. PLEURAL SPACES: No pneumothorax. The left CP angle is excluded from the [id number]. MEDIASTINUM: Cardiac size is stable. BONES: No aggressive appearing osseous lesion seen. IMPRESSION: Improved right lower lobe infiltrates. /[place]
--- NOTE | 2025-02-02 22:01 | NUR ---
Changed to regular face mask. Full face mask on standby. Yaoyn in place.
[2025-02-03] VITALS (94 sets, daily range): BP systolic 110–152; BP diastolic 49–88; PULSE 70–125; RESP 9–55; TEMP 97.7–98.3; O2SAT 92–98
--- NOTE | 2025-02-03 00:05 | NUR ---
Changed back to full face mask.
[2025-02-03 03:21] LABS: ABG BASE EXCESS -6.5 mmol/L (-2.0-3.0); ABG HCO3 15.9 mmol/L (21.0-28.0); ABG OXYGEN SATURATION 93.7 % (94.0-98.0); ABG PCO2 25 mmHg (35-48); ABG PH 7.423 (7.350-7.450); PO2, ARTERIAL BG 65.5 mmHg (83.0-108.0); TEMPERATURE, CELSIUS BG 37.0 CELSIUS (35.5-37.0)
[2025-02-03 04:27] LABS: NUCLEATED RED BLOOD CELLS 0.0 % (0.0-0.19); PLATELET COUNT (AUTO) 240.0 K/uL (130-400); RED BLOOD CELL COUNT(AUTO) 3.66 MIL/uL (4.50-6.20); RED CELL DISTRIBUTION WIDTH 13.5 % (11.0-15.5); WHITE BLOOD COUNT (AUTO) 6.7 K/uL (4.8-10.8)
[2025-02-03 05:14] LABS: ASPARTATE AMINOTRANSFERASE 70.0 U/L (10-37); CREATININE 1.5 mg/dL (0.5-1.3); GLOMERULAR FILTR. RATE CALC 59.0 mL/min (>90); GLUCOSE,RANDOM 299.0 mg/dL (70-105); PHOSPHORUS 3.2 mg/dL (2.5-4.9); SODIUM SERUM 136.0 mmol/L (136-145); TOTAL PROTEIN, SERUM 7.2 g/dL (6.0-8.3); UREA NITROGEN, BLOOD 46.0 mg/dL (7-18)
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
--- NOTE | 2025-02-03 10:27 | HMCIMG ---
EXAM: CR Chest, 1 View. CLINICAL HISTORY: hypoxic COMPARISON: None provided. FINDINGS: The nasogastric tube is located below the left hemidiaphragm, superimposed over the stomach, tip projected beyond the FOV. Right subclavian PICC line is present, tip is located at the level of proximal superior vena cava. LUNGS: The lungs show a few infiltrating airspace opacities in the bilateral lower zone. PLEURAL SPACES: No pleural effusion or pneumothorax. MEDIASTINUM: The cardiomediastinal silhouette is within normal limits. BONES: No aggressive appearing osseous lesion seen. IMPRESSION: A nasogastric tube is present below the left hemidiaphragm, superimposed oval stomach; however, the tip is beyond the FOV. Right subclavian PICC line present, and the tip is located at the proximal superior vena cava. Few infiltrating airspace opacity in bilateral lower zone - interval improvement No acute cardiopulmonary pathology is evident. /[place]
--- NOTE | 2025-02-03 10:39 | HMCIMG ---
EXAM: CR Abdomen, 1 View. CLINICAL HISTORY: ngt placement for TF COMPARISON: None provided. FINDINGS: BOWEL: The transverse colon is filled with gas and fecal content could be due to constipation Nasogastric tubes projecting below lthe eft hemidiaphragm in the stomach PERITONEUM/SOFT TISSUES: No free air evident. No pathologic appearing calcification. BONES: No acute osseous abnormality. IMPRESSION: The nasogastric tube is projected below the left hemidiaphragm over the stomach, tip is located in the body portion of the stomach Gas and fecal-loaded transverse colon consistent with constipation /[place]
[2025-02-03] MEDS: SODIUM BICARB 50MEQ 50ML VIAL IV ONE (11:42)
[2025-02-03] MEDS: SODIUM CHLORIDE 3% FOR INHALATION 4 ML/AMP VIAL.NEB IH ONE ×2 (15:50→18:17)
--- NOTE | 2025-02-03 17:30 | NUR ---
I called pharmacy requesting Bactrim IV. The pharmacy resident stated that they would delay bringing the Bactrim since the previous dose was administered late. Pending pharmacy to bring the next bag of Bactrim IV.
--- NOTE | 2025-02-03 18:24 | PN ---
INFECTIOUS DISEASE PROGRESS NOTE Date of Service: Feb 03, 2025 SUBJECTIVE: This is a 44-year-old male patient who was seen and examined at bedside in room 217. Patient is able to communicate basic needs today. Stated his full name. Remains on BiPAP support. No fever reported within the last 24 hours and WBC 6.7 today. Renal function continues to improve, the BUN is 46 and creatinine of 1.5. No growth reported on the blood cultures and urine cultures. We will continue on fluconazole, cefepime, Bactrim IV and doxycycline IV. PHYSICAL EXAM EYES: Anicteric. Pupils equal and reactive. HENT: Dry Oral mucosa. Oral thrush. NECK: Supple, no JVD or thyromegaly. LUNGS: Diminished breaths sounds and on BiPAP support. CARDIOVASCULAR: S1, S2 regular. No murmur heard. ABDOMEN: Soft, non tender, bowel sounds present, no organomegaly. CENTRAL NERVOUS SYSTEM: Oriented to person and was able to state basic needs. SKIN: Rash on abdomen and lower extremities. LYMPHATICS: No peripheral lymphadenopathy MUSCULOSKELETAL: No joint swelling, erythema or tenderness. EXTREMITIES: No cyanosis or clubbing. Weakness. BACK: No deformity, no pressure ulcer. GENITOURINARY: No dysuria or hematuria. Dias catheter. Vital Sign (Last 12 Hours) 02/03/25 02/03/25 02/03/25 02/03/25 06:22 06:37 06:43 06:46 Pulse 72 75 72 79 Resp 31 27 29 29 B/P (MAP) 124/83 (97) 130/79 (96) Pulse Ox 95 95 FiO2 50 40 02/03/25 02/03/25 02/03/25 02/03/25 06:52 07:07 07:22 07:37 Pulse 87 85 80 74 Resp 31 31 33 34 B/P (MAP) 123/73 (90) 124/70 (88) 122/70 (87) 121/68 (85) Pulse Ox 97 94 93 91 FiO2 50 50 50 50 02/03/25 02/03/25 02/03/25 02/03/25 07:52 08:00 08:00 08:07 Temp 97.7 Pulse 74 78 Resp 31 29 B/P (MAP) 120/70 (87) 128/76 (93) Pulse Ox 90 98 94 O2 Delivery BIPAP Bi-PAP+ FiO2 50 50 50 50 02/03/25 02/03/25 02/03/25 02/03/25 08:22 08:37 08:52 09:00 Pulse 79 79 79 Resp 32 33 28 B/P (MAP) 123/74 (90) 123/73 (90) 127/76 (93) Pulse Ox 93 93 90 FiO2 50 50 50 02/03/25 02/03/25 02/03/25 02/03/25 09:07 09:22 09:31 09:37 Pulse 76 76 71 76 Resp 30 40 30 27 B/P (MAP) 124/74 (91) 122/74 (90) 128/79 (95) Pulse Ox 91 90 93 FiO2 50 02/03/25 02/03/25 02/03/25 02/03/25 09:52 10:07 10:22 10:24 Pulse 72 72 81 75 Resp 29 25 19 32 B/P (MAP) 125/76 (92) 124/72 (89) 125/79 (94) Pulse Ox 92 93 96 02/03/25 02/03/25 02/03/25 02/03/25 10:37 10:52 11:07 11:22 Pulse 82 80 82 78 Resp 29 30 31 33 B/P (MAP) 127/76 (93) 123/79 (94) 127/75 (92) 123/78 (93) Pulse Ox 96 97 93 95 FiO2 50 50 02/03/25 02/03/25 02/03/25 02/03/25 11:37 11:37 11:52 12:00 Pulse 79 81 81 Resp 33 32 28 B/P (MAP) 126/75 (92) 124/73 (90) Pulse Ox 96 94 97 O2 Delivery Bi-PAP+ FiO2 50 50 50 100 02/03/25 02/03/25 02/03/25 02/03/25 12:07 12:22 12:37 12:48 Temp 98.2 Pulse 82 81 81 Resp 30 55 32 B/P (MAP) 119/70 (86) 120/73 (89) 127/72 (90) Pulse Ox 96 95 95 O2 Delivery BIPAP FiO2 50 50 50 02/03/25 02/03/25 02/03/25 02/03/25 13:00 14:00 14:53 15:00 Pulse 75 95 89 98 Resp 24 26 32 24 B/P (MAP) 133/76 140/57 121/49 Pulse Ox 97 97 96 O2 Delivery BIPAP BIPAP N/C High Flow System FiO2 50 50 90 02/03/25 02/03/25 02/03/25 02/03/25 15:18 16:00 16:00 17:00 Temp 98.1 Pulse 101 100 108 Resp 30 26 26 B/P (MAP) 141/51 144/81 Pulse Ox 94 94 92 O2 Delivery HFNC Heated System N/Can N/C High Flow System Hi-Flow N/C+ N/C High Flow System O2 Flow Rate 50.0 50 FiO2 90 90 90 90 02/03/25 18:00 Pulse 105 Resp 28 B/P (MAP) 144/77 Pulse Ox 92 O2 Delivery N/C High Flow System FiO2 90 Intake & Output (last 24hrs) 02/02/25 02/02/25 02/03/25 15:00 23:00 07:00 Intake Total 1400.4 ml 1420.4 ml 1600.4 ml Output Total 400 ml 700 ml 1000 ml Balance 1000.4 ml 720.4 ml 600.4 ml LABS: Laboratory: Test 02/03/25 11:55 02/03/25 11:50 02/03/25 04:16 02/03/25 03:20 Range/Units Ammonia 13 11-32 umol/L Vitamin B12 Level 5093 H 193-986 pg/mL Thyroid Stimulating Hormone (TSH) 0.71 0.36-3.74 uIU/mL Whole Blood Glucose 269 H 70-110 MG/DL White Blood Count 6.7 4.8-10.8 K/uL Red Blood Count 3.66 L 4.50-6.20 MIL/uL Hemoglobin 10.2 L 14.0-18.0 g/dL Hematocrit 31.6 L 42-54 % Mean Corpuscular Volume 86.3 79-99 fL Mean Corpuscular Hemoglobin 27.9 27.0-33.0 pg Mean Corpuscular Hemoglobin Concent 32.3 32.0-36.0 g/dL Red Cell Distribution Width 13.5 11.0-15.5 % Platelet Count 240 130-400 K/uL Mean Platelet Volume 11.0 H 7.5-10.5 fL Nucleated Red Blood Cells 0.0 0.0-0.19 % Sodium Level 136 136-145 mmol/L Potassium Level 4.5 3.5-5.1 mmol/L Chloride Level 109 101-111 mmol/L Carbon Dioxide Level 17 L 21-32 mmol/L Blood Urea Nitrogen 46 H 7-18 mg/dL Creatinine 1.5 H 0.5-1.3 mg/dL Glomerular Filtration Rate Calc 59 >90 mL/min Random Glucose 299 H 70-105 mg/dL Hemoglobin A1c 5.4 4.0-6.0 % Estimated Average Glucose (eAG) 108 70-126 mg/dL Lactic Acid Level 2.4 0.8-2.5 mmol/L Total Calcium 7.8 L 8.5-10.1 mg/dL Phosphorus Level 3.2 2.5-4.9 mg/dL Magnesium Level 2.60 H 1.80-2.40 mg/dL Total Bilirubin 0.5 # 0.2-1.0 mg/dL Aspartate Amino Transf (AST/SGOT) 70 H 10-37 U/L Alanine Aminotransferase (ALT/SGPT) 23 12-78 U/L Alkaline Phosphatase 155 H 50-136 U/L Total Protein 7.2 6.0-8.3 g/dL Albumin 1.3 L 3.5-5.0 g/dL Blood Gas Specimen Type Arterial Arterial Blood pH 7.423 7.350-7.450 Arterial Blood Partial Pressure CO2 25 L 35-48 mmHg Arterial Blood Partial Pressure O2 65.5 L 83.0-108.0 mmHg Arterial Blood HCO3 15.9 L 21.0-28.0 mmol/L Arterial Blood Oxygen Saturation 93.7 L 94.0-98.0 % Arterial Blood Base Excess -6.5 L -2.0-3.0 mmol/L Blood Gas Temperature 37.0 35.5-37.0 CELSIUS Blood Gas Respiration Rate 18.0 min. Blood Gas Vent Mode BIPAP 15-10 ROOM AIR FiO2 40.0 % Blood Gas Specimen Comment LR MARIELY Test 02/02/25 05:33 02/02/25 03:15 Range/Units C-Reactive Protein, Quantitative 23.40 H 0.5-3.0 mg/L Hemoglobin (Blood Gas) 11.1 L 13.5-17.5 g/dL Sodium (Blood Gas) 142 136-145 MMOL/L Bedside Potassium (Blood Gas) 4.5 3.4-4.5 MMOL/L Bedside Chloride (Blood Gas) 115 H 98-107 MMOL/L Bedside Glucose (Blood Gas) 258 H 65-95 MG/DL Bedside Ionized Calcium (Blood Gas) 1.16 1.15-1.33 MMOL/L Bedside Lactic Acid (Blood Gas) 1.68 H 0.36-0.75 MMOL/L ASSESSMENT: Acute hypoxic respiratory failure requiring BiPAP support. Multifocal pneumonia. Suspected advanced stage HIV, not on anti-retroviral therapy, POA. Suspected Pneumocystis pneumonia. Sepsis. Acute renal failure. Oral candidiasis. Morbid obesity. PLAN: Continue cefepime. Continue doxycycline IV. Continue Bactrim IV. Continue fluconazole IV. Continue GI prophylaxis. Continue oxygen support, currently on BiPAP support. Continue continue steroids. Continue critical care support. This case was reviewed and discussed with my supervising physician Dr. Sigala and the above assessment and plan was formulated and agreed upon. ATTESTATION BY PHYSICIAN I have seen and examined the patient. I reviewed the documentation, medical decision making, and treatment plan as noted by the mid-level provider above. I agree with the findings and plan of care. MIRZA SIGALA MD, [facility] Feb 03, 2025 18:24
--- NOTE | 2025-02-03 19:49 | PN ---
[facility] PROGRESS NOTE Date Patient Seen: Feb 03, 2025 Time of Visit: 19:46 Supervising Physician: ISAC MATHEW MD Primary Care Physician: [Avi LESTER] Outpatient Specialists: [ ] Inpatient Consults: [Dr. Prince, [facility] team-ICU] PROBLEM LIST: Acute hypoxemic respiratory failure present on admission requiring noninvasive ventilator support with BiPAP ARDS Community-acquired pneumonia suspected Pneumocystis Toxic metabolic encephalopathy on admission Acute sepsis on admission without septic shock secondary to community-acquired pneumonia HIV positive newly diagnosed stage IV. Not on anti-retroviral medication CD4 count: 19 Immunocompromise status Suspected TB Obstructive sleep apnea, untreated/undiagnosed Morbid obesity, BMI 33.6 INTERVAL HISTORY: 44 years old man seen at bedside. Remains in the ICU. Currently on BiPAP at 50% and saturating 92% Has NG tube tolerating feedings no residuals, no nausea or vomiting Patient is more awake, trying to communicate and following commands He is still on Precedex drip Remains under airborne isolation Creatinine levels are trending down, no fevers. Urine output improved. REVIEW OF SYSTEMS: 12 points review of systems done, all pertinent information has been addressed. PHYSICAL EXAM: GENERAL: Continuous BiPAP, nonverbal. Persistent respiratory distress with hypoxia HEENT: EOMI, Sclera non icteric, moist mucosa NECK: Supple, no JVD, trachea midline LUNGS: Grossly clear, decreased air entry. No wheezing HEART: Regular rate and rhythm. Normal S1 and S2, without murmurs ABD: Abdomen soft, nontender. Bowel sounds present, obese EXT: No clubbing cyanosis or edema : Dias in situ NEURO: Obtunded Vital Signs (last 8hr) Date Time Temp Pulse Resp B/P (MAP) Pulse Ox O2 Delivery O2 Flow Rate FiO2 02/03/25 18:26 114 30 HFNC Heated System N/Can 50.0 90 02/03/25 18:25 114 32 02/03/25 18:00 105 28 144/77 92 N/C High Flow System 90 02/03/25 17:00 108 26 144/81 92 N/C High Flow System 90 02/03/25 16:00 94 Hi-Flow N/C+ 50 90 02/03/25 16:00 98.1 100 26 141/51 94 N/C High Flow System 90 02/03/25 15:18 101 30 HFNC Heated System N/Can 50.0 90 02/03/25 15:00 98 24 121/49 96 N/C High Flow System 90 02/03/25 14:53 89 32 02/03/25 14:00 95 26 140/57 97 BIPAP 50 02/03/25 13:00 75 24 133/76 97 BIPAP 50 02/03/25 12:48 98.2 BIPAP 50 02/03/25 12:37 81 32 127/72 (90) 95 02/03/25 12:22 81 55 120/73 (89) 95 50 02/03/25 12:07 82 30 119/70 (86) 96 50 02/03/25 12:00 97 Bi-PAP+ 100 02/03/25 11:52 81 28 124/73 (90) 94 50 LABS: Hematology Labs: Test 02/03/25 04:16 Range/Units White Blood Count 6.7 4.8-10.8 K/uL Red Blood Count 3.66 L 4.50-6.20 MIL/uL Hemoglobin 10.2 L 14.0-18.0 g/dL Hematocrit 31.6 L 42-54 % Mean Corpuscular Volume 86.3 79-99 fL Mean Corpuscular Hemoglobin 27.9 27.0-33.0 pg Mean Corpuscular Hemoglobin Concent 32.3 32.0-36.0 g/dL Red Cell Distribution Width 13.5 11.0-15.5 % Platelet Count 240 130-400 K/uL Mean Platelet Volume 11.0 H 7.5-10.5 fL Nucleated Red Blood Cells 0.0 0.0-0.19 % Chemistry Labs: Test 02/03/25 11:55 02/03/25 11:50 02/03/25 04:16 02/02/25 05:33 Range/Units Ammonia 13 11-32 umol/L Vitamin B12 Level 5093 H 193-986 pg/mL Thyroid Stimulating Hormone (TSH) 0.71 0.36-3.74 uIU/mL Whole Blood Glucose 269 H 70-110 MG/DL Sodium Level 136 136-145 mmol/L Potassium Level 4.5 3.5-5.1 mmol/L Chloride Level 109 101-111 mmol/L Carbon Dioxide Level 17 L 21-32 mmol/L Blood Urea Nitrogen 46 H 7-18 mg/dL Creatinine 1.5 H 0.5-1.3 mg/dL Glomerular Filtration Rate Calc 59 >90 mL/min Random Glucose 299 H 70-105 mg/dL Hemoglobin A1c 5.4 4.0-6.0 % Estimated Average Glucose (eAG) 108 70-126 mg/dL Lactic Acid Level 2.4 0.8-2.5 mmol/L Total Calcium 7.8 L 8.5-10.1 mg/dL Phosphorus Level 3.2 2.5-4.9 mg/dL Magnesium Level 2.60 H 1.80-2.40 mg/dL Total Bilirubin 0.5 # 0.2-1.0 mg/dL Aspartate Amino Transf (AST/SGOT) 70 H 10-37 U/L Alanine Aminotransferase (ALT/SGPT) 23 12-78 U/L Alkaline Phosphatase 155 H 50-136 U/L Total Protein 7.2 6.0-8.3 g/dL Albumin 1.3 L 3.5-5.0 g/dL C-Reactive Protein, Quantitative 23.40 H 0.5-3.0 mg/L DIAGNOSTICS / RADIOLOGY RESULTS: CT scan of the chest shows consolidation of the lower lobes bilaterally with air bronchogram bilaterally and honeycomb pattern. No evidence of any cavitary lesions. PLAN It is highly doubtful that the patient has pulmonary tuberculosis however due to his severely immunocompromised status we are going to collect sputum samples for AFB smear Wean off high-flow Wean off Precedex Continue airborne isolation Due to severe immunocompromise status patient is not a candidate for QuantiFERON blood work Continue IV antibiotics Family updated Prognosis extremely guarded NEURO: Minimize central acting medications as possible. Fall Precautions. Well lighted room through the day and minimize interruptions through the night to prevent acute delirium. PULMONARY: Supplemental 02 as needed Titrate Fio2 to keep Spo2 > or = 90% DuoNebs and CPT as needed IS hourly while awake for pulmonary hygiene Out of bed to chair as tolerated VAP Bundle Vent/BIPAP Settings: [ BIPAP setting 12/11 rate of 18 FiO2 60%. ] CARDIOVASCULAR: Follow hemodynamics. Titrate vasopressor to keep MAP >65 or systolic blood pressure >95mmHg DRIPS: [Precedex ] LINES: [PIV] GI & NUTRITION: Continue nutritional support Aspirations precautions Prokinetic agents and laxatives as needed KIDNEYS & ELECTROLYTES: Strict monitoring of intake and output Daily weights Avoid nephrotoxic agents Monitor electrolytes and replace as needed Dias care-prevent CAUTI per nursing Goal urine output of 30mL/hr or 0.5mL/kg/hr Urine output: [ ] Fluid Balance: [ ] ENDOCRINE: Maintain blood glucose between 100-180 at all times. Insulin sliding scale for blood glucose management INFECTIOUS DISEASE: Trend temperature. Lara-culture if febrile. Micro: [ ] Antibiotics: [Vancomycin 01/30- IV Fluconazole: 01/30- IV Sulfa/TMP: 01/30-] HEMATOLOGY & COAGULATION: Monitor H&H. Keep Hgb > 7 Transfuse 1 unit of PRBC for Hgb < 7 Transfuse 1 pack of platelets of platelets < 20, 000 Watch for any signs and symptoms of bleeding SKIN: Pressure ulcer prevention per facility protocol Rehab: PT/OT Prophylaxis: GI: [Pepcid] DVT: [Heparin ] Code Status: Full Resuscitation Disposition: [ICU ] Other: Total patient care time: 35 minutes I personally scribed for ISAC MATHEW MD (NURIA) on 02/03/25 at 19:49. Electronically submitted by Erick Cruz ([facility]). ISAC MATHEW MD Feb 03, 2025 19:49
[2025-02-04] VITALS (111 sets, daily range): BP systolic 99–176; BP diastolic 52–118; PULSE 77–124; RESP 18–131; TEMP 98.1–99.1; O2SAT 94–99
--- NOTE | 2025-02-04 00:27 | NUR ---
sputum sent by nurse
[2025-02-04 04:25] LABS: NUCLEATED RED BLOOD CELLS 0.0 % (0.0-0.19); PLATELET COUNT (AUTO) 230.0 K/uL (130-400); RED BLOOD CELL COUNT(AUTO) 3.37 MIL/uL (4.50-6.20); RED CELL DISTRIBUTION WIDTH 13.5 % (11.0-15.5); WHITE BLOOD COUNT (AUTO) 5.3 K/uL (4.8-10.8)
[2025-02-04 04:44] LABS: ABG BASE EXCESS -6.9 mmol/L (-2.0-3.0); ABG HCO3 14.4 mmol/L (21.0-28.0); ABG OXYGEN SATURATION 93.9 % (94.0-98.0); ABG PCO2 21 mmHg (35-48); ABG PH 7.457 (7.350-7.450); DEVICE COMMENT RN ,RR; PO2, ARTERIAL BG 63.6 mmHg (83.0-108.0); TEMPERATURE, CELSIUS BG 37.0 CELSIUS (35.5-37.0); VENT MODE, BG HHFNC (ROOM AIR)
[2025-02-04 04:59] LABS: ASPARTATE AMINOTRANSFERASE 84.0 U/L (10-37); CREATININE 1.1 mg/dL (0.5-1.3); GLOMERULAR FILTR. RATE CALC 86.0 mL/min (>90); GLUCOSE,RANDOM 296.0 mg/dL (70-105); PHOSPHORUS 2.3 mg/dL (2.5-4.9); SODIUM SERUM 138.0 mmol/L (136-145); TOTAL PROTEIN, SERUM 5.9 g/dL (6.0-8.3); UREA NITROGEN, BLOOD 37.0 mg/dL (7-18)
--- NOTE | 2025-02-04 09:37 | HMCIMG ---
EXAM: CR Chest, 1 View. CLINICAL HISTORY: Pneumonia. COMPARISON: 02/03/2025 FINDINGS: The right PICC line tip overlies the superior vena cava. Interval removal of the nasogastric tube. LUNGS: Improved aeration of both lungs with residual right lower lobe infiltrates. PLEURAL SPACES: No evidence of pleural effusion or pneumothorax. MEDIASTINUM: The cardiac size is stable. BONES: No acute osseous abnormality. IMPRESSION: Improved bilateral lung aeration with residual right lower lobe infiltrates, likely representing resolving pneumonia. The right PICC line tip overlies the superior vena cava. Interval removal of the nasogastric tube. /[place]
[2025-02-04] MEDS: SODIUM CHLORIDE 3% FOR INHALATION 4 ML/AMP VIAL.NEB IH ONE ×2 (10:11→13:51)
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
--- NOTE | 2025-02-04 11:42 | NUR ---
Pt keeps removing bipap total face mask. While removing mask, pt made a cut on bridge of nose. Cut was bleeding slightly but has stopped. Nurse THOM Massey notified. Addendum: 02/04/25 at 1145 by JENNIFER TRUJILLO III, RT RT Amended: Links added.
--- NOTE | 2025-02-04 13:13 | PN ---
[facility] PROGRESS NOTE Date Patient Seen: Feb 04, 2025 Time of Visit: 13:08 Supervising Physician: COMPA OAKLEY MD Primary Care Physician: [Avi LESTER] Outpatient Specialists: [ ] Inpatient Consults: [Dr. Prince, [facility] team-ICU] PROBLEM LIST: Acute hypoxemic respiratory failure present on admission requiring noninvasive ventilator support with BiPAP ARDS Community-acquired pneumonia suspected Pneumocystis Toxic metabolic encephalopathy on admission Acute sepsis on admission without septic shock secondary to community-acquired pneumonia HIV positive newly diagnosed stage IV. Not on anti-retroviral medication CD4 count: 19 Immunocompromise status Suspected TB Obstructive sleep apnea, untreated/undiagnosed Morbid obesity, BMI 33.6 INTERVAL HISTORY: Patient is doing worse today than yesterday Tried weaning off Precedex and patient became agitated, tachypneic and removed lines and NGT Today, he is on Precedex again, he is on BiPAP continuously and requires 60% FiO2 at this time. His O2 saturation is 91% He is obtunded, weak and with increase work of breathing. Precedex is currently at 1.5 Blood glucose has been in the 300's No fevers, no seizures, no chills Voiding, no diarrhea Pending AFB sputum samples REVIEW OF SYSTEMS: 12 points review of systems done, all pertinent information has been addressed. PHYSICAL EXAM: GENERAL: Continuous BiPAP, nonverbal. Persistent respiratory distress with hypoxia HEENT: EOMI, Sclera non icteric, moist mucosa NECK: Supple, no JVD, trachea midline LUNGS: Fine crackles bilaterally. Increased work of breathing, intercostal retractions HEART: Regular rate and rhythm. Normal S1 and S2, without murmurs ABD: Abdomen soft, nontender. Bowel sounds present, obese EXT: No clubbing cyanosis or edema : Dias in situ NEURO: Obtunded Vital Signs (last 8hr) Date Time Temp Pulse Resp B/P (MAP) Pulse Ox O2 Delivery O2 Flow Rate FiO2 02/04/25 12:50 108 176/109 02/04/25 11:42 98.1 02/04/25 11:33 104 32 50 02/04/25 10:11 82 36 02/04/25 10:00 86 36 124/72 (89) 96 50 02/04/25 09:50 87 37 50 02/04/25 09:45 82 27 113/56 (75) 93 50 02/04/25 09:30 86 40 113/60 (77) 95 50 02/04/25 09:15 92 36 118/64 (82) 94 50 02/04/25 09:00 94 30 118/69 (85) 95 50 02/04/25 08:45 98 36 134/72 (92) 95 50 02/04/25 08:30 95 34 112/65 (81) 99 50 02/04/25 08:16 98.2 02/04/25 08:15 102 30 129/79 (96) 99 50 02/04/25 08:00 106 35 126/80 (95) 99 50 02/04/25 07:45 109 34 133/79 (97) 99 50 02/04/25 07:30 118 30 150/92 (111) 99 50 02/04/25 07:15 124 33 152/98 (116) 99 50 02/04/25 07:00 105 34 172/110 (130) 82 50 02/04/25 06:39 100 36 02/04/25 06:37 100 36 50 02/04/25 06:23 98 27 174/106 (128) 88 02/04/25 06:09 81 26 163/88 (113) 67 02/04/25 05:53 98 18 149/76 (100) 92 02/04/25 05:37 96 37 132/86 (101) 93 02/04/25 05:22 98 32 137/90 (106) 94 LABS: Hematology Labs: Test 02/04/25 04:07 Range/Units White Blood Count 5.3 4.8-10.8 K/uL Red Blood Count 3.37 L 4.50-6.20 MIL/uL Hemoglobin 9.3 L 14.0-18.0 g/dL Hematocrit 28.7 L 42-54 % Mean Corpuscular Volume 85.2 79-99 fL Mean Corpuscular Hemoglobin 27.6 27.0-33.0 pg Mean Corpuscular Hemoglobin Concent 32.4 32.0-36.0 g/dL Red Cell Distribution Width 13.5 11.0-15.5 % Platelet Count 230 130-400 K/uL Mean Platelet Volume 11.4 H 7.5-10.5 fL Nucleated Red Blood Cells 0.0 0.0-0.19 % Chemistry Labs: Test 02/04/25 11:40 02/04/25 08:13 02/04/25 04:07 02/03/25 11:55 Range/Units Whole Blood Glucose 347 H 70-110 MG/DL Lactic Acid Level 2.7 H 0.8-2.5 mmol/L Sodium Level 138 136-145 mmol/L Potassium Level 3.6 3.5-5.1 mmol/L Chloride Level 111 101-111 mmol/L Carbon Dioxide Level 15 L 21-32 mmol/L Blood Urea Nitrogen 37 H 7-18 mg/dL Creatinine 1.1 0.5-1.3 mg/dL Glomerular Filtration Rate Calc 86 >90 mL/min Random Glucose 296 H 70-105 mg/dL Total Calcium 6.9 L 8.5-10.1 mg/dL Phosphorus Level 2.3 L 2.5-4.9 mg/dL Magnesium Level 2.00 1.80-2.40 mg/dL Total Bilirubin 0.5 0.2-1.0 mg/dL Aspartate Amino Transf (AST/SGOT) 84 H 10-37 U/L Alanine Aminotransferase (ALT/SGPT) 30 # 12-78 U/L Alkaline Phosphatase 136 50-136 U/L Total Protein 5.9 L 6.0-8.3 g/dL Albumin 1.1 L 3.5-5.0 g/dL Ammonia 13 11-32 umol/L Vitamin B12 Level 5093 H 193-986 pg/mL Thyroid Stimulating Hormone (TSH) 0.71 0.36-3.74 uIU/mL Test 02/03/25 04:16 Range/Units Hemoglobin A1c 5.4 4.0-6.0 % Estimated Average Glucose (eAG) 108 70-126 mg/dL DIAGNOSTICS / RADIOLOGY RESULTS: Chest x-ray with bilateral pulmonary infiltrates PLAN Very poor prognosis today. He is on continuous non invasive ventilator support High risk for intubation asked sister if patient would want to be intubated and on mechanical ventilator support will allow family to decide as patient is obtunded and cannot make decisions however; as per nurse and family, patient had expressed he did not want to be intubated will continue steroids continue IV antibiotics continue BiPAP all questions answered, continue isolation Poor prognosis NEURO: Minimize central acting medications as possible. Fall Precautions. Well lighted room through the day and minimize interruptions through the night to prevent acute delirium. PULMONARY: Supplemental 02 as needed Titrate Fio2 to keep Spo2 > or = 90% DuoNebs and CPT as needed IS hourly while awake for pulmonary hygiene Out of bed to chair as tolerated VAP Bundle Vent/BIPAP Settings: [ BIPAP setting 12/11 rate of 18 FiO2 60%. ] CARDIOVASCULAR: Follow hemodynamics. Titrate vasopressor to keep MAP >65 or systolic blood pressure >95mmHg DRIPS: [Precedex ] LINES: [PIV] GI & NUTRITION: Continue nutritional support Aspirations precautions Prokinetic agents and laxatives as needed KIDNEYS & ELECTROLYTES: Strict monitoring of intake and output Daily weights Avoid nephrotoxic agents Monitor electrolytes and replace as needed Dias care-prevent CAUTI per nursing Goal urine output of 30mL/hr or 0.5mL/kg/hr Urine output: [ ] Fluid Balance: [ ] ENDOCRINE: Maintain blood glucose between 100-180 at all times. Insulin sliding scale for blood glucose management INFECTIOUS DISEASE: Trend temperature. Lara-culture if febrile. Micro: [ ] Antibiotics: [Vancomycin 01/30- IV Fluconazole: 01/30- IV Sulfa/TMP: 01/30-] HEMATOLOGY & COAGULATION: Monitor H&H. Keep Hgb > 7 Transfuse 1 unit of PRBC for Hgb < 7 Transfuse 1 pack of platelets of platelets < 20, 000 Watch for any signs and symptoms of bleeding SKIN: Pressure ulcer prevention per facility protocol Rehab: PT/OT Prophylaxis: GI: [Pepcid] DVT: [Heparin ] Code Status: Full Resuscitation Disposition: [ICU ] Other: Total patient care time: 35 minutes I personally scribed for COMPA PATRICK MD ([email or web address]) on 02/04/25 at 13:13. Electronically submitted by Erick Cruz ([email or web address]). COMPA PATRICK MD Feb 04, 2025 13:13
[2025-02-04 16:11] LABS: COCCIDIOIDES AB IGM EIA 0.2 EIA Units (.)
--- NOTE | 2025-02-04 17:04 | PN ---
INFECTIOUS DISEASE PROGRESS NOTE Date of Service: Feb 04, 2025 SUBJECTIVE: This is a 44-year-old male patient who remains on the BiPAP. No fever reported this morning, temperature is 98.1. No growth reported on the blood cultures, urine culture and AFB sputum cultures. Patient has been started on NG tube feedings at a low rate and tolerating well. We will continue on fluconazole, cefepime, Bactrim IV and doxycycline IV. PHYSICAL EXAM EYES: Anicteric. Pupils equal and reactive. HENT: Dry Oral mucosa. Oral thrush. NECK: Supple, no JVD or thyromegaly. LUNGS: Diminished breaths sounds and on BiPAP support. CARDIOVASCULAR: S1, S2 regular. No murmur heard. ABDOMEN: Soft, non tender, bowel sounds present, no organomegaly. CENTRAL NERVOUS SYSTEM: Oriented to person and was able to state basic needs. SKIN: Rash on abdomen and lower extremities. LYMPHATICS: No peripheral lymphadenopathy MUSCULOSKELETAL: No joint swelling, erythema or tenderness. EXTREMITIES: No cyanosis or clubbing. Weakness. BACK: No deformity, no pressure ulcer. GENITOURINARY: No dysuria or hematuria. Dias catheter. Vital Sign (Last 12 Hours) 02/04/25 02/04/25 02/04/25 02/04/25 05:07 05:22 05:37 05:53 Pulse 97 98 96 98 Resp 37 32 37 18 B/P (MAP) 138/93 (108) 137/90 (106) 132/86 (101) 149/76 (100) Pulse Ox 94 94 93 92 02/04/25 02/04/25 02/04/25 02/04/25 06:09 06:23 06:37 06:39 Pulse 81 98 100 100 Resp 26 27 36 36 B/P (MAP) 163/88 (113) 174/106 (128) Pulse Ox 67 88 FiO2 50 02/04/25 02/04/25 02/04/25 02/04/25 07:00 07:15 07:30 07:45 Pulse 105 124 118 Resp 34 33 30 B/P (MAP) 172/110 (130) 152/98 (116) 150/92 (111) Pulse Ox 82 99 99 99 O2 Delivery Bi-PAP+ FiO2 50 50 50 50 02/04/25 02/04/25 02/04/25 02/04/25 07:45 08:00 08:15 08:16 Temp 98.2 Pulse 109 106 102 Resp 34 35 30 B/P (MAP) 133/79 (97) 126/80 (95) 129/79 (96) Pulse Ox 99 99 99 FiO2 50 50 50 02/04/25 02/04/25 02/04/25 02/04/25 08:30 08:45 09:00 09:15 Pulse 95 98 94 92 Resp 34 36 30 36 B/P (MAP) 112/65 (81) 134/72 (92) 118/69 (85) 118/64 (82) Pulse Ox 99 95 95 94 FiO2 50 50 50 50 02/04/25 02/04/25 02/04/25 02/04/25 09:30 09:45 09:50 10:00 Pulse 86 82 87 86 Resp 40 27 37 36 B/P (MAP) 113/60 (77) 113/56 (75) 124/72 (89) Pulse Ox 95 93 96 FiO2 50 50 50 50 02/04/25 02/04/25 02/04/25 02/04/25 10:11 10:15 10:30 10:45 Pulse 82 82 93 103 Resp 36 28 31 34 B/P (MAP) 121/63 (82) 117/64 (81) 140/85 (103) Pulse Ox 95 97 96 FiO2 50 50 50 02/04/25 02/04/25 02/04/25 02/04/25 11:00 11:15 11:30 11:33 Pulse 102 98 93 104 Resp 32 40 26 32 B/P (MAP) 148/87 (107) 168/111 (130) 176/117 (136) Pulse Ox 96 94 93 FiO2 50 50 50 50 02/04/25 02/04/25 02/04/25 02/04/25 11:42 11:45 12:00 12:15 Temp 98.1 Pulse 104 106 108 Resp 32 33 34 B/P (MAP) 162/105 (124) 169/110 (129) 158/113 (128) Pulse Ox 95 95 94 FiO2 50 50 50 02/04/25 02/04/25 02/04/25 02/04/25 12:30 12:30 12:45 12:50 Pulse 111 102 108 Resp 35 39 B/P (MAP) 176/109 (131) 151/98 (115) 176/109 Pulse Ox 94 94 99 O2 Delivery Bi-PAP+ FiO2 50 50 50 02/04/25 02/04/25 02/04/25 02/04/25 13:00 13:15 13:30 13:45 Pulse 94 94 93 94 Resp 32 36 35 37 B/P (MAP) 153/105 (121) 143/101 (115) 143/99 (114) 146/102 (117) Pulse Ox 93 93 91 91 FiO2 50 50 50 50 02/04/25 02/04/25 02/04/25 02/04/25 13:51 13:55 14:00 14:08 Pulse 89 96 96 Resp 36 36 26 B/P (MAP) 147/91 (109) Pulse Ox 96 FiO2 60 50 60 02/04/25 02/04/25 02/04/25 02/04/25 14:15 14:30 14:45 15:00 Pulse 98 99 99 99 Resp 35 35 35 38 B/P (MAP) 162/104 (123) 152/102 (119) 152/103 (119) 147/97 (114) Pulse Ox 95 95 96 96 FiO2 50 50 50 50 02/04/25 02/04/25 02/04/25 15:15 15:30 16:03 Temp 98.4 Pulse 99 98 Resp 33 44 B/P (MAP) 153/101 (118) 160/103 (122) Pulse Ox 96 95 FiO2 50 50 Intake & Output (last 24hrs) 02/03/25 02/03/25 02/04/25 15:00 23:00 07:00 Intake Total 1469.0 ml 1023.8 ml 1590.6 ml Output Total 1000 ml 1000 ml Balance 1469.0 ml 23.8 ml 590.6 ml LABS: Laboratory: Test 02/04/25 16:11 02/04/25 11:40 02/04/25 04:41 02/04/25 04:07 Range/Units Lactic Acid Level 3.4 H 0.8-2.5 mmol/L Whole Blood Glucose 347 H 70-110 MG/DL Blood Gas Specimen Type Arterial Arterial Blood pH 7.457 H 7.350-7.450 Arterial Blood Partial Pressure CO2 21 L 35-48 mmHg Arterial Blood Partial Pressure O2 63.6 L 83.0-108.0 mmHg Arterial Blood HCO3 14.4 L 21.0-28.0 mmol/L Arterial Blood Oxygen Saturation 93.9 L 94.0-98.0 % Arterial Blood Base Excess -6.9 L -2.0-3.0 mmol/L Blood Gas Temperature 37.0 35.5-37.0 CELSIUS Blood Gas Flow-by 15.00 0.00-15.00 L/min Blood Gas Vent Mode HHFNC ROOM AIR FiO2 90.0 % Blood Gas Specimen Comment RN ,RR White Blood Count 5.3 4.8-10.8 K/uL Red Blood Count 3.37 L 4.50-6.20 MIL/uL Hemoglobin 9.3 L 14.0-18.0 g/dL Hematocrit 28.7 L 42-54 % Mean Corpuscular Volume 85.2 79-99 fL Mean Corpuscular Hemoglobin 27.6 27.0-33.0 pg Mean Corpuscular Hemoglobin Concent 32.4 32.0-36.0 g/dL Red Cell Distribution Width 13.5 11.0-15.5 % Platelet Count 230 130-400 K/uL Mean Platelet Volume 11.4 H 7.5-10.5 fL Nucleated Red Blood Cells 0.0 0.0-0.19 % Sodium Level 138 136-145 mmol/L Potassium Level 3.6 3.5-5.1 mmol/L Chloride Level 111 101-111 mmol/L Carbon Dioxide Level 15 L 21-32 mmol/L Blood Urea Nitrogen 37 H 7-18 mg/dL Creatinine 1.1 0.5-1.3 mg/dL Glomerular Filtration Rate Calc 86 >90 mL/min Random Glucose 296 H 70-105 mg/dL Total Calcium 6.9 L 8.5-10.1 mg/dL Phosphorus Level 2.3 L 2.5-4.9 mg/dL Magnesium Level 2.00 1.80-2.40 mg/dL Total Bilirubin 0.5 0.2-1.0 mg/dL Aspartate Amino Transf (AST/SGOT) 84 H 10-37 U/L Alanine Aminotransferase (ALT/SGPT) 30 # 12-78 U/L Alkaline Phosphatase 136 50-136 U/L Total Protein 5.9 L 6.0-8.3 g/dL Albumin 1.1 L 3.5-5.0 g/dL Test 02/03/25 11:55 02/03/25 04:16 02/03/25 03:20 Range/Units Ammonia 13 11-32 umol/L Vitamin B12 Level 5093 H 193-986 pg/mL Thyroid Stimulating Hormone (TSH) 0.71 0.36-3.74 uIU/mL Hemoglobin A1c 5.4 4.0-6.0 % Estimated Average Glucose (eAG) 108 70-126 mg/dL Blood Gas Respiration Rate 18.0 min. ASSESSMENT: Acute hypoxic respiratory failure requiring BiPAP support. Multifocal pneumonia. Suspected advanced stage HIV, not on anti-retroviral therapy, POA. Suspected Pneumocystis pneumonia. Sepsis. Acute renal failure, improving. Oral candidiasis. Morbid obesity. PLAN: Continue cefepime. Continue doxycycline IV. Continue Bactrim IV. Continue fluconazole IV. Continue GI prophylaxis. Continue oxygen support, currently on BiPAP support. Continue continue steroids. Continue critical care support. Currently on NG tube feedings. This case was reviewed and discussed with my supervising physician Dr. Sigala and the above assessment and plan was formulated and agreed upon. ATTESTATION BY PHYSICIAN I have seen and examined the patient. I reviewed the documentation, medical decision making, and treatment plan as noted by the mid-level provider above. I agree with the findings and plan of care. MIRZA SIGALA MD, [facility] Feb 04, 2025 17:04
[2025-02-04 21:09] LABS: QUANTIFERON MITOGEN VALUE 0.72 IU/mL (.); QUANTIFERON NIL VALUE 0.08 IU/mL (.)
[2025-02-04] MEDS ORDERED: dexmedeTOMIDINE 200MCG/NS 50ML IV PRN (22:00)
[2025-02-05] VITALS (113 sets, daily range): BP systolic 97–169; BP diastolic 53–112; PULSE 69–123; RESP 8–69; TEMP 97.9–99; O2SAT 94–100
[2025-02-05 04:41] LABS: NUCLEATED RED BLOOD CELLS 0.0 % (0.0-0.19); PLATELET COUNT (AUTO) 240.0 K/uL (130-400); RED BLOOD CELL COUNT(AUTO) 3.54 MIL/uL (4.50-6.20); RED CELL DISTRIBUTION WIDTH 13.6 % (11.0-15.5); WHITE BLOOD COUNT (AUTO) 4.2 K/uL (4.8-10.8)
[2025-02-05 05:05] LABS: ASPARTATE AMINOTRANSFERASE 62.0 U/L (10-37); CREATININE 1.3 mg/dL (0.5-1.3); GLOMERULAR FILTR. RATE CALC 70.0 mL/min (>90); GLUCOSE,RANDOM 342.0 mg/dL (70-105); SODIUM SERUM 135.0 mmol/L (136-145); TOTAL PROTEIN, SERUM 6.5 g/dL (6.0-8.3); UREA NITROGEN, BLOOD 41.0 mg/dL (7-18)
[2025-02-05] MEDS ORDERED: SODIUM BICARB 50MEQ 50ML VIAL IV ONE (10:00)
[2025-02-05 10:38] LABS: ABG BASE EXCESS -12.1 mmol/L (-2.0-3.0); ABG HCO3 16.8 mmol/L (21.0-28.0); ABG OXYGEN SATURATION 93.4 % (94.0-98.0); ABG PCO2 49 mmHg (35-48); PO2, ARTERIAL BG 85.3 mmHg (83.0-108.0); TEMPERATURE, CELSIUS BG 37.0 CELSIUS (35.5-37.0)
[2025-02-05 10:42] LABS: ABG PH 7.151 (7.350-7.450)
[2025-02-05] MEDS: SODIUM CHLORIDE 3% FOR INHALATION 4 ML/AMP VIAL.NEB IH ONE (10:44)
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
[2025-02-05] MEDS: SODIUM BICARB 50MEQ 50ML VIAL IV ONE (11:17)
[2025-02-05] MEDS ORDERED: PHARMACY COMMUNICATION MISC SCH (11:30)
[2025-02-05] MEDS ORDERED: NOREPINEPHRINE 16MG/NS 250ML PREMIX IV SCH (11:30)
--- NOTE | 2025-02-05 12:23 | PN ---
[facility] PROGRESS NOTE Date Patient Seen: Feb 05, 2025 Time of Visit: 12:19 Supervising Physician: COMPA OAKLEY MD Primary Care Physician: [Avi LESTER] Outpatient Specialists: [ ] Inpatient Consults: [Dr. Prince, [facility] team-ICU] PROBLEM LIST: Acute hypoxemic and hypercarbic respiratory failure now with worsening respiratory distress Acute metabolic acidosis ARDS Community-acquired pneumonia suspected Pneumocystis Toxic metabolic encephalopathy on admission Acute sepsis on admission without septic shock secondary to community-acquired pneumonia HIV positive newly diagnosed stage IV. Not on anti-retroviral medication CD4 count: 19 Immunocompromise status Suspected TB Obstructive sleep apnea, untreated/undiagnosed Morbid obesity, BMI 33.6 INTERVAL HISTORY: Patient is deteriorating. Worsening respiratory distress with increased work of breathing, intercostal retractions. Arterial blood gas shows a pH of 7.1 with non-anion gap metabolic acidosis At family's request we are going to proceed with intubation and place the patient on mechanical ventilatory support Blood pressure is low and patient remains on Precedex drip due to persistent encephalopathy and agitation No fevers reported No cough No congestion REVIEW OF SYSTEMS: Patient on Precedex drip, unable to obtain information from patient. PHYSICAL EXAM: GENERAL: On BiPAP assistance, encephalopathic and nonverbal HEENT: EOMI, Sclera non icteric, moist mucosa NECK: Supple, no JVD, trachea midline LUNGS: Fine crackles bilaterally. Increased work of breathing, intercostal retractions HEART: Regular rate and rhythm. Normal S1 and S2, without murmurs ABD: Abdomen soft, nontender. Bowel sounds present, obese EXT: No clubbing cyanosis or edema : Dias in situ NEURO: Obtunded Vital Signs (last 8hr) Date Time Temp Pulse Resp B/P (MAP) Pulse Ox O2 Delivery O2 Flow Rate FiO2 02/05/25 10:45 107 30 02/05/25 09:10 101 32 60 02/05/25 08:30 96 27 168/100 (122) 97 02/05/25 08:15 93 29 157/110 (126) 97 02/05/25 08:00 92 26 160/101 (120) 100 02/05/25 07:45 88 30 133/92 (106) 100 02/05/25 07:30 88 30 134/88 (103) 98 02/05/25 07:15 70 17 165/112 (129) 93 02/05/25 07:00 75 8 134/85 (101) 99 02/05/25 06:57 79 24 60 02/05/25 06:54 79 24 02/05/25 05:45 74 22 116/84 (95) 98 02/05/25 05:30 75 10 117/82 (94) 98 02/05/25 05:15 71 25 124/83 (97) 98 02/05/25 05:00 75 19 125/84 (98) 99 02/05/25 04:45 75 25 103/63 (76) 98 02/05/25 04:30 69 21 121/78 (92) 98 LABS: Hematology Labs: Test 02/05/25 04:21 Range/Units White Blood Count 4.2 L 4.8-10.8 K/uL Red Blood Count 3.54 L 4.50-6.20 MIL/uL Hemoglobin 9.8 L 14.0-18.0 g/dL Hematocrit 31.0 L 42-54 % Mean Corpuscular Volume 87.6 79-99 fL Mean Corpuscular Hemoglobin 27.7 27.0-33.0 pg Mean Corpuscular Hemoglobin Concent 31.6 L 32.0-36.0 g/dL Red Cell Distribution Width 13.6 11.0-15.5 % Platelet Count 240 130-400 K/uL Mean Platelet Volume 10.8 H 7.5-10.5 fL Nucleated Red Blood Cells 0.0 0.0-0.19 % Chemistry Labs: Test 02/05/25 11:04 02/05/25 08:39 02/05/25 05:37 02/05/25 04:21 Range/Units Whole Blood Ketones Quantitative 0.4 0.0-0.6 mmol/L Potassium Level 5.1 3.5-5.1 mmol/L Whole Blood Glucose 327 H 70-110 MG/DL Sodium Level 135 L 136-145 mmol/L Chloride Level 108 101-111 mmol/L Carbon Dioxide Level 19 L 21-32 mmol/L Blood Urea Nitrogen 41 H 7-18 mg/dL Creatinine 1.3 0.5-1.3 mg/dL Glomerular Filtration Rate Calc 70 >90 mL/min Random Glucose 342 H 70-105 mg/dL Total Calcium 8.0 L 8.5-10.1 mg/dL Total Bilirubin 0.5 0.2-1.0 mg/dL Aspartate Amino Transf (AST/SGOT) 62 H 10-37 U/L Alanine Aminotransferase (ALT/SGPT) 32 12-78 U/L Alkaline Phosphatase 138 H 50-136 U/L Total Protein 6.5 6.0-8.3 g/dL Albumin 1.4 L 3.5-5.0 g/dL Test 02/04/25 20:13 02/04/25 04:07 Range/Units Lactic Acid Level 3.3 H 0.8-2.5 mmol/L Phosphorus Level 2.3 L 2.5-4.9 mg/dL Magnesium Level 2.00 1.80-2.40 mg/dL DIAGNOSTICS / RADIOLOGY RESULTS: Worsening infiltrates bilaterally PLAN We will proceed with endotracheal intubation and placement on mechanical ventilatory support due to worsening respiratory failure and distress Written consent obtained from family as patient is on Precedex drip and unable to make informed decisions Continue bicarbonate drip Obtain ketones Continue medical management in the ICU, patient is critically ill Continue isolation Poor prognosis NEURO: Minimize central acting medications as possible. Fall Precautions. Well lighted room through the day and minimize interruptions through the night to prevent acute delirium. PULMONARY: Supplemental 02 as needed Titrate Fio2 to keep Spo2 > or = 90% DuoNebs and CPT as needed IS hourly while awake for pulmonary hygiene Out of bed to chair as tolerated VAP Bundle Vent/BIPAP Settings: [ BIPAP setting 12/11 rate of 18 FiO2 60%. ] CARDIOVASCULAR: Follow hemodynamics. Titrate vasopressor to keep MAP >65 or systolic blood pressure >95mmHg DRIPS: [Precedex ] LINES: [PIV] GI & NUTRITION: Continue nutritional support Aspirations precautions Prokinetic agents and laxatives as needed KIDNEYS & ELECTROLYTES: Strict monitoring of intake and output Daily weights Avoid nephrotoxic agents Monitor electrolytes and replace as needed Dias care-prevent CAUTI per nursing Goal urine output of 30mL/hr or 0.5mL/kg/hr Urine output: [ ] Fluid Balance: [ ] ENDOCRINE: Maintain blood glucose between 100-180 at all times. Insulin sliding scale for blood glucose management INFECTIOUS DISEASE: Trend temperature. Lara-culture if febrile. Micro: [ ] Antibiotics: [Vancomycin 01/30- IV Fluconazole: 01/30- IV Sulfa/TMP: 01/30-] HEMATOLOGY & COAGULATION: Monitor H&H. Keep Hgb > 7 Transfuse 1 unit of PRBC for Hgb < 7 Transfuse 1 pack of platelets of platelets < 20, 000 Watch for any signs and symptoms of bleeding SKIN: Pressure ulcer prevention per facility protocol Rehab: PT/OT Prophylaxis: GI: [Pepcid] DVT: [Heparin ] Code Status: Full Resuscitation Disposition: [ICU ] Other: Total patient care time: 35 minutes excluding any procedures I personally scribed for COMPA PATRICK MD ([email or web address]) on 02/05/25 at 12:23. Electronically submitted by Erick Cruz ([email or web address]). COMPA PATRICK MD Feb 05, 2025 12:23
--- NOTE | 2025-02-05 13:09 | HMCIMG ---
EXAM: CR Chest, 2 View. CLINICAL HISTORY: post intubation COMPARISON: Radiograph from February 04, 2025 FINDINGS: Endotracheal tubes in satisfactory position, tip terminating 3.5 cm above the catina. Right PICC terminates overlying the SVC. Bibasilar airspace disease may reflect an infectious process. No pleural effusion or pneumothorax. Heart size is stable. Pulmonary vessels are within normal limits. IMPRESSION: 1. Endotracheal tube and right PICC line in satisfactory positions. 2. Bibasilar airspace disease, possibly infectious. /[place]
[2025-02-05 14:13] LABS: ABG BASE EXCESS -8.9 mmol/L (-2.0-3.0); ABG HCO3 21.7 mmol/L (21.0-28.0); ABG OXYGEN SATURATION 99.1 % (94.0-98.0); PO2, ARTERIAL BG 213.6 mmHg (83.0-108.0); TEMPERATURE, CELSIUS BG 37.0 CELSIUS (35.5-37.0); VENT MODE, BG AC (ROOM AIR)
[2025-02-05 14:21] LABS: ABG PH 7.120 (7.350-7.450)
[2025-02-05 14:22] LABS: ABG PCO2 68 mmHg (35-48)
[2025-02-05] MEDS: NA ZIRCON CYCLOSIL(LOKELMA 10GM) PO ONE ×2 (17:12→20:29)
--- NOTE | 2025-02-05 21:30 | PRN ---
This is a procedure note. Procedure performed: Endotracheal intubation. Description of procedure: Consent obtained. Time out done. Patient sedated with Rocuronium and Etomidate. Direct laryngoscopy performed using [place]la blade 3.0. [8.0] ETT passed through vocal cords on [1st] attempt. Tube secured at [24] cm at the teeth level. Bilateral breath sounds. Positive capnography. Post procedure chest x ray ordered. Patient tolerated procedure well. No immediate complications. RANDALL LAURA PAC Feb 05, 2025 21:30
--- NOTE | 2025-02-05 22:51 | PN ---
INFECTIOUS DISEASE FOLLOWUP NOTE DATE OF SERVICE: 02/05/2025 SUBJECTIVE: The patient is seen and examined at bedside today. The patient now with worsening respiratory failure. The patient has been intubated and placed ventilator support. The patient tolerated antibiotics. No documented diarrhea. No family available at this time. No bleeding tendency. PHYSICAL EXAMINATION: VITAL SIGNS: Temperature 95.5. EYES: No icterus. Pupils equal and reactive. HENT: No oral thrush seen. Moist oral mucosa. NECK: Supple. No JVD or thyromegaly. LUNGS: Crackles bilaterally. No rhonchi. CARDIOVASCULAR: S1 and S2, regular. ABDOMEN: Morbidly obese, soft, nontender. Bowel sounds present. CENTRAL NERVOUS SYSTEM: Awake, alert and oriented x3. No focal deficits. SKIN: The patient has some skin excoriation. LYMPHATIC: No peripheral lymphadenopathy. BACK: No deformity. No pressure ulcer. HEMATOLOGIC: No bleeding or petechial lesions seen. MUSCULOSKELETAL: No joint swelling. No erythema or tenderness. ASSESSMENT: A 45-year-old male with multiple problems: * Acute respiratory failure, status post intubation. * Possible Pneumocystis jirovesci infection. * Human immunodeficiency virus/Acquired immunodeficiency syndrome. * Sepsis. * Morbid obesity. * Oral candidiasis. PLAN: * Continue critical support. * Continue ventilatory support. * Continue fluconazole. * Continue Bactrim. * Avoid nephrotoxic medications. * Continue deep vein thrombosis prophylaxis. * Monitor electrolytes. * The patient will be followed up closely. TID: [id number] RECEIPT: [id number] [facility]
[2025-02-06] VITALS (111 sets, daily range): BP systolic 100–162; BP diastolic 46–96; PULSE 89–124; RESP 12–123; TEMP 97.6–98.8; O2SAT 95–100
[2025-02-06 04:53] LABS: NUCLEATED RED BLOOD CELLS 0.0 % (0.0-0.19); PLATELET COUNT (AUTO) 292.0 K/uL (130-400); RED BLOOD CELL COUNT(AUTO) 3.9 MIL/uL (4.50-6.20); RED CELL DISTRIBUTION WIDTH 14.3 % (11.0-15.5); WHITE BLOOD COUNT (AUTO) 7.5 K/uL (4.8-10.8)
[2025-02-06 05:19] LABS: ASPARTATE AMINOTRANSFERASE 54.0 U/L (10-37); CREATININE 1.5 mg/dL (0.5-1.3); GLOMERULAR FILTR. RATE CALC 59.0 mL/min (>90); GLUCOSE,RANDOM 228.0 mg/dL (70-105); SODIUM SERUM 140.0 mmol/L (136-145); TOTAL PROTEIN, SERUM 6.8 g/dL (6.0-8.3); UREA NITROGEN, BLOOD 37.0 mg/dL (7-18)
[2025-02-06 09:02] LABS: ABG BASE EXCESS -7.0 mmol/L (-2.0-3.0); ABG HCO3 20.0 mmol/L (21.0-28.0); ABG OXYGEN SATURATION 98.9 % (94.0-98.0); ABG PCO2 46 mmHg (35-48); ABG PH 7.253 (7.350-7.450); CARBON MONOXIDE 0.3 % (0.5-1.5); PO2, ARTERIAL BG 178.5 mmHg (83.0-108.0); TEMPERATURE, CELSIUS BG 37.0 CELSIUS (35.5-37.0); VENT MODE, BG AC (ROOM AIR)
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
--- NOTE | 2025-02-06 10:21 | PN ---
[facility] PROGRESS NOTE Date Patient Seen: Feb 06, 2025 Time of Visit: 10:17 Supervising Physician: Dr Saul Cerda Primary Care Physician: [Avi LESTER] Outpatient Specialists: [ ] Inpatient Consults: [Dr. Sigala-ID, [facility]-ICU] PROBLEM LIST: Acute hypoxemic and hypercarbic respiratory failure now with worsening respiratory distress ARDS Community-acquired pneumonia suspected Pneumocystis Toxic metabolic encephalopathy on admission Acute sepsis on admission without septic shock secondary to community-acquired pneumonia HIV positive newly diagnosed stage IV. Not on anti-retroviral medication CD4 count: 19 Immunocompromise status Suspected TB Obstructive sleep apnea, untreated/undiagnosed Morbid obesity, BMI 33.6 JUAN Volume overload INTERVAL HISTORY: Patient is remains intubated, he is lightly sedated on fentanyl and propofol but does open his eyes and follows commands Patient's chest x-ray reveals volume overload, he has got an JUAN that is worsening, nephrology was consulted and we will start patient on Lasix for diuresis Patient appears to be about 13 L positive, we will follow I&Os Continues on light sedation, antibiotics per ID Patient's potassium creeping up at 5.6, GFR is down to 59, patient's urine output is 1900 in 24 Patient's was able to come down on ventilator to 60%, tidal volume is 500 and we will keep the peep at 10 ABG is 7.25, Plan: We are following ID recs for antibiotics Vent management Antibiotics, steroids I&Os, nephrology has been consulted, we will attempt to diurese Follow daily chest x-ray, ABG Total critical care time spent 58 minutes, this excludes any procedures performed or any time spent in educational or teaching. REVIEW OF SYSTEMS: Patient on Precedex drip, unable to obtain information from patient. PHYSICAL EXAM: GENERAL: On BiPAP assistance, encephalopathic and nonverbal HEENT: EOMI, Sclera non icteric, moist mucosa NECK: Supple, no JVD, trachea midline LUNGS: Fine crackles bilaterally. Increased work of breathing, intercostal retractions HEART: Regular rate and rhythm. Normal S1 and S2, without murmurs ABD: Abdomen soft, nontender. Bowel sounds present, obese EXT: No clubbing cyanosis or edema : Dias in situ NEURO: Obtunded Vital Signs (last 8hr) Date Time Temp Pulse Resp B/P (MAP) Pulse Ox O2 Delivery O2 Flow Rate FiO2 12/1/25 08:30 91 25 112/58 (76) 100 02/06/25 08:15 92 19 109/56 (73) 100 02/06/25 08:00 97.5 02/06/25 08:00 60 02/06/25 08:00 98 Ventilator+ 60 02/06/25 08:00 94 21 113/58 (76) 100 02/06/25 07:45 89 23 118/69 (85) 100 02/06/25 07:30 95 21 113/69 (84) 100 02/06/25 07:15 94 19 124/76 (92) 99 02/06/25 07:00 102 22 142/93 (109) 99 02/06/25 06:37 98 14 131/69 (89) 99 02/06/25 06:35 91 60 02/06/25 06:34 92 29 02/06/25 06:22 96 13 133/76 (95) 99 02/06/25 06:07 94 26 130/77 (94) 99 02/06/25 05:52 94 18 116/68 (84) 99 02/06/25 05:37 97 31 126/74 (91) 99 02/06/25 05:22 99 14 113/59 (77) 98 02/06/25 05:07 100 16 131/79 (96) 99 02/06/25 04:52 99 21 111/65 (80) 99 02/06/25 04:37 101 15 128/69 (88) 98 02/06/25 04:22 101 19 142/80 (100) 99 02/06/25 04:07 98 14 128/71 (90) 98 02/06/25 04:06 99 60 02/06/25 03:59 98.2 02/06/25 03:52 100 18 138/82 (100) 98 02/06/25 03:37 98 31 123/66 (85) 99 02/06/25 03:30 60 02/06/25 03:30 94 18 02/06/25 03:30 98 Ventilator+ 60 02/06/25 03:22 94 22 129/77 (94) 98 02/06/25 03:07 90 30 134/80 (98) 99 02/06/25 02:52 91 32 119/58 (78) 99 02/06/25 02:37 91 28 122/60 (80) 99 02/06/25 02:22 93 34 118/62 (80) 99 LABS: Hematology Labs: Test 02/06/25 04:38 Range/Units White Blood Count 7.5 4.8-10.8 K/uL Red Blood Count 3.90 L 4.50-6.20 MIL/uL Hemoglobin 10.8 L 14.0-18.0 g/dL Hematocrit 34.4 L 42-54 % Mean Corpuscular Volume 88.2 79-99 fL Mean Corpuscular Hemoglobin 27.7 27.0-33.0 pg Mean Corpuscular Hemoglobin Concent 31.4 L 32.0-36.0 g/dL Red Cell Distribution Width 14.3 11.0-15.5 % Platelet Count 292 130-400 K/uL Mean Platelet Volume 10.6 H 7.5-10.5 fL Nucleated Red Blood Cells 0.0 0.0-0.19 % Chemistry Labs: Test 02/06/25 04:38 02/06/25 00:11 02/05/25 11:04 02/04/25 20:13 Range/Units Sodium Level 140 136-145 mmol/L Potassium Level 5.6 H 3.5-5.1 mmol/L Chloride Level 109 101-111 mmol/L Carbon Dioxide Level 20 L 21-32 mmol/L Blood Urea Nitrogen 37 H 7-18 mg/dL Creatinine 1.5 H 0.5-1.3 mg/dL Glomerular Filtration Rate Calc 59 >90 mL/min Random Glucose 228 H 70-105 mg/dL Total Calcium 8.0 L 8.5-10.1 mg/dL Total Bilirubin 0.8 0.2-1.0 mg/dL Aspartate Amino Transf (AST/SGOT) 54 H 10-37 U/L Alanine Aminotransferase (ALT/SGPT) 27 12-78 U/L Alkaline Phosphatase 142 H 50-136 U/L Total Protein 6.8 6.0-8.3 g/dL Albumin 1.6 L 3.5-5.0 g/dL Whole Blood Glucose 200 H 70-110 MG/DL Whole Blood Ketones Quantitative 0.4 0.0-0.6 mmol/L Lactic Acid Level 3.3 H 0.8-2.5 mmol/L DIAGNOSTICS / RADIOLOGY RESULTS: [ ] PLAN NEURO: Minimize central acting medications as possible. Fall Precautions. Well lighted room through the day and minimize interruptions through the night to prevent acute delirium. PULMONARY: Supplemental 02 as needed Titrate Fio2 to keep Spo2 > or = 90% DuoNebs and CPT as needed IS hourly while awake for pulmonary hygiene Out of bed to chair as tolerated VAP Bundle Vent/BIPAP Settings: [ BIPAP setting 10/5 rate of 18 FiO2 60%. ] CARDIOVASCULAR: Follow hemodynamics. Titrate vasopressor to keep MAP >65 or systolic blood pressure >95mmHg DRIPS: [Precedex ] LINES: [PIV] GI & NUTRITION: Continue nutritional support Aspirations precautions Prokinetic agents and laxatives as needed KIDNEYS & ELECTROLYTES: Strict monitoring of intake and output Daily weights Avoid nephrotoxic agents Monitor electrolytes and replace as needed Dias care-prevent CAUTI per nursing Goal urine output of 30mL/hr or 0.5mL/kg/hr Urine output: [ ] Fluid Balance: [ ] ENDOCRINE: Maintain blood glucose between 100-180 at all times. Insulin sliding scale for blood glucose management INFECTIOUS DISEASE: Trend temperature. Lara-culture if febrile. Micro: [ ] Antibiotics: [Vancomycin 01/30- IV Fluconazole: 01/30- IV Sulfa/TMP: 01/30-] HEMATOLOGY & COAGULATION: Monitor H&H. Keep Hgb > 7 Transfuse 1 unit of PRBC for Hgb < 7 Transfuse 1 pack of platelets of platelets < 20, 000 Watch for any signs and symptoms of bleeding SKIN: Pressure ulcer prevention per facility protocol Rehab: PT/OT Prophylaxis: GI: [Pepcid] DVT: [Heparin ] Code Status: Full Resuscitation Disposition: [ICU ] BIANCA WICK PAC Feb 06, 2025 10:21
[2025-02-06] MEDS: SODIUM BICARB 50MEQ 50ML VIAL IV ONE (10:46)
[2025-02-06] MEDS: DEXTROSE 50%-WATER 50 ML DISP.SYRIN IV PRN (11:42)
[2025-02-06] MEDS: DEXTROSE 50%-WATER 50 ML DISP.SYRIN IV ONE (12:00)
--- NOTE | 2025-02-06 14:18 | CONS ---
NEPHROLOGY CONSULTATION NOTE Date/Time Patient Seen: Feb 06, 2025 [id number] Reason for Consultation: Renal failure HISTORY OF PRESENT ILLNESS: This is a 44-year-old male with HIV positive newly diagnosed He was brought by EMS to the ED for complaints of shortness of breaths for the past two weeks. He has been in the hospital for several days He continues to be intubated and sedated. He continues on antibiotics as per ID. He was noted to have elevated BUN/creatinine We are consulted for renal failure Renal function remains elevated Electrolytes has been noted He was seen in the ICU Continues to be intubated and sedated No family at the bedside Prognosis remains guarded REVIEW OF SYSTEMS: Difficult to obtain given status of the patient who remains intubated mechanically ventilated PAST MEDICAL HISTORY: Newly diagnosed HIV PAST SURGICAL HISTORY: None PAST SOCIAL HISTORY: Denies use of alcohol, tobacco or illicit drugs FAMILY HISTORY: Noncontributory PHYSICAL EXAM: General: acutely ill, sedated, intubated, and mechanically ventilated HEENT: head is atraumatic, pupils equal and reactive, ET tube in place Neck: supple, no masses, no lymphadenopathy, no thyromegaly, no JVD Lungs: decreased breath sounds bilaterally, symmetrical chest movement Cardio: regular rate, S1 and S2 normal, no rub or gallop Abdomen: soft, non tender, no distension, no organomegaly Extremities: trace edema bilateral lower extremities, no cyanosis or clubbing Skin: no rashes or suspicious lesions Neuro: sedated MEDICATIONS: [ ] Current Medications Medications (Trade) Dose Ordered Sig/Amada Route PRN Reason Start Time Stop Time Status Last Admin Dose Admin Acetaminophen (TYLenol 325MG TAB) 650 mg Q4H PRN PO MILD PAIN (1-3) 01/30/25 20:00 03/01/25 19:59 Acetaminophen (TYLenol 325MG TAB) 650 mg Q6H PRN PO TEMPERATURE GREATER THAN 101.5 01/30/25 20:00 03/01/25 19:59 Acetaminophen (TYLenol 650MG SUPPOSITORY) 650 mg Q4H PRN RC TEMPERATURE GREATER THAN 101.5 01/31/25 18:30 03/02/25 18:29 01/31/25 23:53 650 MG Acetaminophen (acetaMINOPHEN 1,000MG/100ML) 1,000 mg Q6H6 PRN IVPB TEMPERATURE GREATER THAN 100 02/01/25 16:30 03/03/25 16:29 02/01/25 16:26 1,000 MG Albuterol (DUOneb) 1 udvial [id number] IH 01/30/25 22:00 03/01/25 21:59 02/06/25 10:15 1 UDVIAL Cefepime HCl (MAXipime 2 gm vial) 2 gm Q12H IVPB 02/01/25 14:00 02/11/25 13:59 02/06/25 01:29 2 GM Dexmedetomidine/ Sodium Chloride (PRECEdex 200MCG/ 50ML-NS) 200 mcg PROTOCOL PRN IV AGITATION 02/04/25 22:00 02/04/25 23:41 DC Dexmedetomidine/ Sodium Chloride (PRECEdex 400MCG/ 100ML-NS) 400 mcg PROTOCOL IV 02/04/25 23:45 03/06/25 23:44 02/05/25 09:53 400 MCG Dexmedetomidine/ Sodium Chloride (PRECEdex 400MCG/ 100ML-NS) 400 mcg PROTOCOL PRN IV AGITATION 01/31/25 01:00 02/04/25 21:32 DC 02/04/25 19:45 400 MCG Dextrose (D50w) 50 ml AD PRN IV HYPOGLYCEMIA PROTOCOL 01/31/25 05:00 03/02/25 04:59 02/06/25 11:42 50 ML Doxycycline Hyclate 250 ml @ 125 mls/hr Q12H IV 01/31/25 14:00 02/10/25 13:59 02/06/25 01:27 125 MLS/HR Famotidine (Pepcid 20mg Vial) 20 mg DAILY IV 01/31/25 09:00 03/02/25 08:59 02/06/25 10:02 20 MG Fentanyl Citrate 100 ml @ 2.5 mls/hr PROTOCOL IV 02/05/25 11:30 02/05/25 19:59 DC 02/05/25 17:13 2.5 MLS/HR Fentanyl/Sodium Chloride 250 ml @ 0.1 mls/hr PROTOCOL IV 02/05/25 20:00 02/10/25 19:59 02/05/25 20:25 0.1 MLS/HR Fluconazole/ Sodium Chloride (DiFLUCan 200 MG/ NS 100 ML) 200 mg DAILY22 IV 02/02/25 22:00 03/01/25 17:59 02/05/25 20:35 200 MG Fluconazole/ Sodium Chloride (DiFLUCan 200 MG/ NS 100 ML) 200 mg Q24H IV 01/30/25 18:00 02/02/25 14:38 DC 02/01/25 18:17 200 MG Furosemide (LASix 40MG VIAL) 20 mg ONCE STAT IV 01/31/25 05:37 01/31/25 05:40 DC 01/31/25 05:45 20 MG Glucagon (Glucagon 1mg Kit) 1 mg AD PRN IM HYPOGLYCEMIA PROTOCOL 01/31/25 05:00 03/02/25 04:59 Guaifenesin/ Dextromethorphan (RobiTUSSin DM 200/20MG 10ML) 10 ml Q4H PRN PO COUGH 01/30/25 20:00 03/01/25 19:59 Heparin Sodium (Porcine) (HEParin 5,000 UNIT VIAL) 5,000 unit Q12H SQ 01/31/25 09:00 03/02/25 08:59 02/06/25 10:03 5,000 UNIT Insulin Glargine (LANtus 100 UNITS/ML 10 ML VIAL) 20 units BID SQ 02/04/25 21:00 03/06/25 20:59 02/06/25 10:03 20 UNITS Insulin Human Regular (humuLIN R 100 UNIT/ML 3ML) INSULIN SLIDING SCAL... Q6H6 SQ 01/31/25 06:00 03/02/25 05:59 02/06/25 11:43 4 UNIT Labetalol HCl (TRANdate 20MG SYG) 10 mg Q4HPRN PRN IV ADMINISTER FOR SBP > 180 02/04/25 13:00 03/06/25 12:59 02/04/25 12:50 10 MG Methylprednisolone Sodium Succinate (Solu-medROL 40MG) 40 mg BID IVP 01/30/25 21:00 01/31/25 04:16 DC 01/30/25 21:18 40 MG Methylprednisolone Sodium Succinate (Solu-medROL 40MG) 40 mg Q8H IVP 01/31/25 04:30 02/02/25 11:57 DC 02/02/25 11:47 40 MG Methylprednisolone Sodium Succinate (Solu-medROL 40MG) 60 mg Q6H IVP 02/02/25 12:00 03/01/25 20:59 02/06/25 10:46 60 MG Morphine Sulfate (morPHINE 2MG SYG) 2 mg ONCE STAT IVP 01/31/25 05:41 01/31/25 05:45 DC 01/31/25 05:51 2 MG Multi-Ingred Cream/Lotion/Oil/ Oint (Artificial Tears Eye Oint) Apply ointment to both e... Q4H OU 01/31/25 15:00 03/02/25 14:59 02/06/25 10:47 1 APPL Norepinephrine Bitartrate (Norepineph 16 Mg/250ml NS Premix) sbp>90 PROTOCOL IV 02/05/25 11:30 03/07/25 11:29 Ondansetron HCl (zoFRAN 4MG INJ) 4 mg Q6H PRN IV NAUSEA/VOMITING 01/30/25 20:00 03/01/25 19:59 Pharmacy Profile Note (Pharmacy Communication) 1 each ONCE MISC 02/05/25 11:30 02/05/25 11:23 DC Piperacillin Sod/ Tazobactam Sod (Zosyn 3.375gm+NS 50ml) 3.375 gm Q8H IVPB 01/31/25 09:30 01/31/25 12:56 DC 01/31/25 11:04 3.375 GM Piperacillin Sod/ Tazobactam Sod (Zosyn 3.375gm+NS 50ml) 3.375 gm ZOSY8 IVPB 01/31/25 13:00 02/01/25 13:33 DC 02/01/25 11:54 3.375 GM Propofol (DIPRivan 1000MG/ 100ML) 1,000 mg PROTOCOL PRN IV SEDATION 02/05/25 11:30 03/07/25 11:29 02/06/25 13:02 1,000 MG Sodium Bicarbonate (Sodium Bicarb 50meq 50ml Vial) 50 meq Q8H6 IV 02/06/25 14:00 02/07/25 16:00 Sodium Chloride 1,000 ml @ 100 mls/hr Q10H IV 01/30/25 20:00 01/31/25 05:38 DC 01/30/25 21:18 100 MLS/HR Trimethoprim/ Sulfamethoxazole 480 mg/Dextrose 500 ml @ 250 mls/hr Q6H IV 01/30/25 21:00 02/01/25 11:57 DC 02/01/25 02:49 250 MLS/HR Trimethoprim/ Sulfamethoxazole 480 mg/Dextrose 500 ml @ 250 mls/hr Q6H IV 02/01/25 12:00 02/11/25 11:59 02/06/25 11:10 250 MLS/HR Trimethoprim/ Sulfamethoxazole / Dextrose 100 ml @ 100 mls/hr AD IV 01/30/25 20:00 02/09/25 19:59 UNV Vital Signs (last 8hr) Date Time Temp Pulse Resp B/P (MAP) Pulse Ox O2 Delivery O2 Flow Rate FiO2 02/06/25 12:45 113 20 144/80 (101) 97 02/06/25 12:30 115 13 135/80 (98) 97 02/06/25 12:15 116 18 146/79 (101) 97 02/06/25 12:00 97 Ventilator+ 40 02/06/25 12:00 119 24 147/88 (107) 97 02/06/25 12:00 98.1 02/06/25 12:00 40 02/06/25 11:45 115 14 144/86 (105) 97 02/06/25 11:30 108 14 154/86 (108) 97 02/06/25 11:15 109 21 151/87 (108) 98 02/06/25 11:00 111 24 154/91 (112) 97 02/06/25 10:45 109 27 153/87 (109) 97 02/06/25 10:30 106 26 151/91 (111) 97 02/06/25 10:15 97 29 02/06/25 10:15 104 21 147/92 (110) 99 02/06/25 10:00 98 23 138/92 (107) 97 02/06/25 09:45 94 21 126/72 (90) 97 02/06/25 09:30 96 22 133/82 (99) 97 02/06/25 09:15 99 23 140/81 (100) 97 02/06/25 09:00 98 22 137/86 (103) 98 02/06/25 08:45 96 24 133/87 (102) 100 02/06/25 08:30 91 25 112/58 (76) 100 02/06/25 08:15 92 19 109/56 (73) 100 02/06/25 08:00 97.5 02/06/25 08:00 60 02/06/25 08:00 98 Ventilator+ 60 02/06/25 08:00 94 21 113/58 (76) 100 02/06/25 07:45 89 23 118/69 (85) 100 02/06/25 07:30 95 21 113/69 (84) 100 02/06/25 07:15 94 19 124/76 (92) 99 02/06/25 07:00 102 22 142/93 (109) 99 02/06/25 06:37 98 14 131/69 (89) 99 02/06/25 06:35 91 60 02/06/25 06:34 92 29 02/06/25 06:22 96 13 133/76 (95) 99 DIAGNOSTICS / RADIOLOGY: [place] [address] IMAGING REPORT Signed PATIENT: CHARY HERNANDEZ MR#: [id number] : 1980 SEX: M AGE: 44 LOCATION: [facility] ORDER 1118 STATUS: ADM IN REPORT#: [id number] SERVICE 1145 REASON: post intubation ORDERING PHYSICIAN: COMPA PATRICK MD PROCEDURE: CXR1VW - CHEST 1VW EXAM: CR Chest, 2 View. CLINICAL HISTORY: post intubation COMPARISON: Radiograph from February 04, 2025 FINDINGS: Endotracheal tubes in satisfactory position, tip terminating 3.5 cm above the catina. Right PICC terminates overlying the SVC. Bibasilar airspace disease may reflect an infectious process. No pleural effusion or pneumothorax. Heart size is stable. Pulmonary vessels are within normal limits. IMPRESSION: 1. Endotracheal tube and right PICC line in satisfactory positions. 2. Bibasilar airspace disease, possibly infectious. /[place] DICTATED BY: LARISSA ELMONS Jr., MD DATE: 02/05/251408 ELECTRONICALLY SIGNED BY: LARISSA LEMONS Jr., MD DATE: 02/05/251408 PATIENT: CHARY HERNANDEZ MR#: [id number] : 1980 SEX: M AGE: 44 LOCATION: [facility] ORDER 9 STATUS: ADM IN REPORT#: [id number] SERVICE 8 REASON: ngt placement for TF ORDERING PHYSICIAN: ISAC MATHEW MD PROCEDURE: ABD 1VW - ABD 1VW EXAM: CR Abdomen, 1 View. CLINICAL HISTORY: ngt placement for TF COMPARISON: None provided. FINDINGS: BOWEL: The transverse colon is filled with gas and fecal content could be due to constipation Nasogastric tubes projecting below lthe eft hemidiaphragm in the stomach PERITONEUM/SOFT TISSUES: No free air evident. No pathologic appearing calcification. BONES: No acute osseous abnormality. IMPRESSION: The nasogastric tube is projected below the left hemidiaphragm over the stomach, tip is located in the body portion of the stomach Gas and fecal-loaded transverse colon consistent with constipation /[place] DICTATED BY: LARISSA LEMONS Jr., MD DATE: 02/03/251138 ELECTRONICALLY SIGNED BY: LARISSA LEMONS Jr., MD DATE: 02/03/251138 PATIENT: CHARY HERNANDEZ MR#: [id number] : 1980 SEX: M AGE: 44 LOCATION: [facility] ORDER 1 STATUS: ADM IN REPORT#: [id number] SERVICE 5 REASON: hypoxia ORDERING PHYSICIAN: BIANCA GARCIA PROCEDURE: ECHO CMP - ECHO 2-D COMPLETE APPROVED REPORT EXAM: Two-dimensional and M-mode echocardiogram with Doppler and color Doppler. INDICATION ICD: R06.02 Shortness of breath 2D Dimensions RVDd 4.5 cm LVEF(%) 58.7 (>50%) LVED Vol(simp.) 152.0 mL IVSd 1.2 (0.7-1.1cm) FS(%) 32 % LVES Vol(simp.) 70.0 mL LVDd 6.1 (3.8-5.6cm) LA (2D) 4.0 (1.6-4.0cm) LVEF(%, simp.) 54 % PWd 0.8 (0.7-1.1cm) Ao Root(2D) 3.4 (2.0-3.7cm) LA ESV INDEX (BP) 26.38 mL/m2 IVSs 1.5 cm LVOT diam 2.7 (1.8-2.4cm) LVDs 4.1 (2.5-4.0cm) IVC diam 2.7 cm PWs 1.1 cm Deformation Strain Apical 4 -16.1 % Apical 2 -16.4 % Apical 3 -17.4 % Global Strain -16.6 % M-Mode Dimensions EPSS 0.3 cm LA (MM) 4.2 (1.6-4.0cm) Ao Root(MM) 4.0 (2.0-3.7cm) Aortic Valve AoV Vmax 1.4 m/s Ao Peak GR 7.3 mmHg LVOT Vmax 1.2 m/s AoV VTI 0.3 m Ao Mean GR 4.7 mmHg LVOT VTI 0.23 m MIHN (VMAX) 5.28 cm2 MINH (VTI) 5.3 cm2 Mitral Valve MV E Vmax 88.4 cm/s DECEL Time 146 ms MV A Vmax 76.4 cm/s P 1/2 T 41 ms E/A ratio 1.2 MVA (PHT) 5.4 cm2 TDI E/E' Medial 10.2 E/E' Lateral 10.5 Medial E' Peak V 8.64 cm/s Lateral E' Peak V 8.43 cm/s Pulmonary Valve PV Vmax 0.8 m/s PV Peak GR 2.3 mmHg Tricuspid Valve TR Vmax 1.1 m/s RAP (EST) 8 mmHg RVSP 12.9 mmHg TR Peak GR 4.9 mmHg Left Ventricle The left ventricle is normal size. GLS -16.0% There is normal LV segmental wall motion. There is mild left ventricular wall thickness. LVEF is 55%. The LV diastolic function was unable to be assessed due to atrial arrhythmia. Right Ventricle The right ventricle is normal size. The right ventricular systolic function is normal. Atria The left atrium size is normal. The right atrium size is normal. Aortic Valve The aortic valve is normal in structure. No aortic regurgitation is present. There is no aortic valvular stenosis. Mitral Valve The mitral valve is normal in structure. There is trace of mitral valve regurgitation noted. There is no mitral valve stenosis. Tricuspid Valve The tricuspid valve is normal in structure. There is no tricuspid valve regurgitation noted. Pulmonic Valve The pulmonary valve is normal in structure. There is mild pulmonic valvular regurgitation. Great Vessels The aortic root is normal in size. IVC is dilated and collapses >50% with inspiration. Pericardium There is no pericardial effusion. Other Information Quality : Technically diffcult study due to body habitus Conclusion LVEF is 55%. DICTATED BY: CAROL GALLAGHER MD DATE: 01/31/25844 ELECTRONICALLY SIGNED BY: CAROL GALLAGHER MD DATE: 01/31/252052 PATIENT: CHARY HERNANDEZ MR#: [id number] : 1980 SEX: M AGE: 44 LOCATION: [facility] ORDER STATUS: ADM IN [facility] REPORT#: [id number] SERVICE REASON: r/o DVT ORDERING PHYSICIAN: BIANCA GARCIA PROCEDURE: VENOUS GRACIE - US VENOUS DOPPLER BILATERAL EXAM: US for Deep Venous Thrombosis, bilateral Lower Extremity. CLINICAL HISTORY: Rule out deep venous thrombosis. TECHNIQUE: Real-time ultrasound scan of the veins of the bilateral lower extremity with color Doppler flow, spectral waveform analysis and compression. COMPARISON: None provided. FINDINGS: DEEP VEINS: The common femoral, superficial femoral, and popliteal veins are echolucent and compressible. There is normal color Doppler flow throughout. The visualized calf veins appear patent. SOFT TISSUES: No popliteal fossa cyst or other abnormalities. IMPRESSION: No deep venous thrombosis is evident on bilateral lower extremity examination. /[place] DICTATED BY: LARISSA LEMONS Jr., MD DATE: 01/31/25400 ELECTRONICALLY SIGNED BY: LARISSA LEMONS Jr., MD DATE: 01/31/25400 PATIENT: CHARY HERNANDEZ MR#: [id number] : 1980 SEX: M AGE: 44 LOCATION: [facility] ORDER STATUS: ADM IN REPORT#: [id number] SERVICE REASON: r/o P.E. ORDERING PHYSICIAN: BIANCA GARCIA PROCEDURE: CHES PE - CT CHEST PE PROTOCOL WWO CONT EXAMINATION: CT Chest, with intravenous contrast CLINICAL HISTORY: Patient presents to rule out pulmonary embolism. TECHNIQUE: Axial computed tomography images of the chest, with intravenous contrast. Multiplanar reformations were generated and reviewed. CONTRAST: With intravenous contrast. COMPARISON: None provided. FINDINGS: CHEST: LUNGS: The lungs demonstrate extensive diffuse consolidation and airspace opacities and ground-glassing throughout the bilateral lungs, predominantly involving the lower lobes and perihilar regions. No pulmonary mass. PLEURAL SPACES: No pneumothorax or pleural effusion. CARDIOVASCULAR: Cardiomegaly is present. No significant pericardial effusion. The main pulmonary artery measures 3.2 cm. The right pulmonary artery measures 2 cm. The left pulmonary artery measures 2.2 cm. The pulmonary arteries show no evidence of filling defects. Normal caliber thoracic aorta. MEDIASTINUM AND SILVINO: No mediastinal or hilar lymphadenopathy. ABDOMEN : Hepatosplenomegaly BONES: No acute or aggressive osseous abnormality. IMPRESSION: No acute pulmonary embolism. Extensive diffuse bilateral pulmonary airspace opacities, predominantly in the lower lobes and perihilar regions, consistent with pulmonary edema. Cardiomegaly with mild pulmonary arterial hypertension. Hepatosplenomegaly. /[place] DICTATED BY: LARISSA LEMONS Jr., MD DATE: 01/31/25803 ELECTRONICALLY SIGNED BY: LARISSA LEMONS Jr., MD DATE: 01/31/25803 LABORATORY: [ ] Hematology Labs: Test 02/06/25 04:38 Range/Units White Blood Count 7.5 4.8-10.8 K/uL Red Blood Count 3.90 L 4.50-6.20 MIL/uL Hemoglobin 10.8 L 14.0-18.0 g/dL Hematocrit 34.4 L 42-54 % Mean Corpuscular Volume 88.2 79-99 fL Mean Corpuscular Hemoglobin 27.7 27.0-33.0 pg Mean Corpuscular Hemoglobin Concent 31.4 L 32.0-36.0 g/dL Red Cell Distribution Width 14.3 11.0-15.5 % Platelet Count 292 130-400 K/uL Mean Platelet Volume 10.6 H 7.5-10.5 fL Nucleated Red Blood Cells 0.0 0.0-0.19 % Chemistry Labs: Test 02/06/25 11:14 02/06/25 09:30 02/06/25 04:38 02/05/25 11:04 Range/Units Whole Blood Glucose 258 H 70-110 MG/DL Lactic Acid Level 3.3 H 0.8-2.5 mmol/L Procalcitonin 0.17 0.05-0.5 ng/mL Sodium Level 140 136-145 mmol/L Potassium Level 5.6 H 3.5-5.1 mmol/L Chloride Level 109 101-111 mmol/L Carbon Dioxide Level 20 L 21-32 mmol/L Blood Urea Nitrogen 37 H 7-18 mg/dL Creatinine 1.5 H 0.5-1.3 mg/dL Glomerular Filtration Rate Calc 59 >90 mL/min Random Glucose 228 H 70-105 mg/dL Total Calcium 8.0 L 8.5-10.1 mg/dL Total Bilirubin 0.8 0.2-1.0 mg/dL Aspartate Amino Transf (AST/SGOT) 54 H 10-37 U/L Alanine Aminotransferase (ALT/SGPT) 27 12-78 U/L Alkaline Phosphatase 142 H 50-136 U/L B-Type Natriuretic Peptide 84 0-100 pg/mL Total Protein 6.8 6.0-8.3 g/dL Albumin 1.6 L 3.5-5.0 g/dL Whole Blood Ketones Quantitative 0.4 0.0-0.6 mmol/L ASSESSMENT: Hyperkalemia Acute renal failure Acute hypoxemic and hypercarbic respiratory failure now with worsening respiratory distress ARDS Community-acquired pneumonia suspected Pneumocystis Toxic metabolic encephalopathy on admission Acute sepsis on admission without septic shock secondary to community-acquired pneumonia HIV positive newly diagnosed stage IV. Not on anti-retroviral medication CD4 count: 19 Immunocompromise status Suspected TB Obstructive sleep apnea, untreated/undiagnosed Morbid obesity, BMI 33.6 Volume overload PLAN: Labs, diagnostic, radiologic exams reviewed and interpreted by myself and supervising physician. We have reviewed external records in detail Obtain UA, urine electrolytes, urine creatinine, urine osmolality and complete renal ultrasound Require close monitoring of renal function and electrolytes Order CBC, CMP, uric acid, complete iron panel, ferritin TSH and electrolytes in am Continue with antibiotics as per ID Continue mechanical ventilation and sedation Start Nephro-Aida and thiamine daily IV pressors as needed Monitor blood pressure adjust medication doses as needed Avoid hypotensive episodes May use Dilaudid 0.5 mg IV every 6 hours as needed for severe pain Monitor blood sugars Strict intake, output, and daily weight should be monitored Please renally adjust medications Avoid nephrotoxic and nonsteroidal drugs Avoid contrast if possible Will continue to monitor renal function, anemia, electrolytes Treatment plan discussed with patient Questions were answered We have discussed with the other team physicians in detail about the care plan We will continue to monitor the patient closely Thank you for allowing us to participate in the care of this patient Total critical care time spent with patient, nursing staff, critical care team over 35 minutes ATTESTATION BY PHYSICIAN I have seen and examined the patient. I reviewed the documentation, medical decision making, and treatment plan as noted by the mid-level provider above. I agree with the findings and plan of care. DARBY PORRAS MD, [facility] Feb 06, 2025 14:18 DARBY PORRAS MD Feb 06, 2025 19:42
[2025-02-06] MEDS: SODIUM BICARB 50MEQ 50ML VIAL IV SCH (14:21)
[2025-02-06 15:09] LABS: CREATININE,URINE RANDOM 59.0 mg/dL (30-135); PROTEIN,URINE RANDOM 191.7 mg/dL (0-11.9)
--- NOTE | 2025-02-06 15:35 | PN ---
INFECTIOUS DISEASE PROGRESS NOTE Date of Service: Feb 06, 2025 SUBJECTIVE: Patient was seen at bedside in room 217. Patient is now on mechanical ventilatory support. Case management to contact [facility] to be able to start HIV management. The final sputum culture results came back positive for Klebsiella pneumoniae and methicillin sensitive Staphylococcus aureus. We will continue on cefepime, Bactrim IV, doxycycline IV and fluconazole IV. Per report NG tube feedings on hold due to large residual. PHYSICAL EXAM EYES: Anicteric. Pupils equal and reactive. HENT: Dry Oral mucosa. Oral thrush. NGT. NECK: Supple, no JVD or thyromegaly. LUNGS: On mechanical ventilatory support. CARDIOVASCULAR: S1, S2 regular. No murmur heard. ABDOMEN: Soft, non tender, bowel sounds present, no organomegaly. CENTRAL NERVOUS SYSTEM: Intubated. SKIN: Rash on abdomen and lower extremities. LYMPHATICS: No peripheral lymphadenopathy MUSCULOSKELETAL: No joint swelling, erythema or tenderness. EXTREMITIES: No cyanosis or clubbing. Weakness. BACK: No deformity, no pressure ulcer. GENITOURINARY: No dysuria or hematuria. Dias catheter. Vital Sign (Last 12 Hours) 02/06/25 02/06/25 02/06/25 02/06/25 03:30 03:30 03:30 03:37 Pulse 94 98 Resp 18 31 B/P (MAP) 123/66 (85) Pulse Ox 98 99 O2 Delivery Ventilator+ FiO2 60 60 02/06/25 02/06/25 02/06/25 02/06/25 03:52 03:59 04:06 04:07 Temp 98.2 Pulse 100 99 98 Resp 18 14 B/P (MAP) 138/82 (100) 128/71 (90) Pulse Ox 98 98 FiO2 60 02/06/25 02/06/25 02/06/25 02/06/25 04:22 04:37 04:52 05:07 Pulse 101 101 99 100 Resp 19 15 21 16 B/P (MAP) 142/80 (100) 128/69 (88) 111/65 (80) 131/79 (96) Pulse Ox 99 98 99 99 02/06/25 02/06/25 02/06/25 02/06/25 05:22 05:37 05:52 06:07 Pulse 99 97 94 94 Resp 14 31 18 26 B/P (MAP) 113/59 (77) 126/74 (91) 116/68 (84) 130/77 (94) Pulse Ox 98 99 99 99 02/06/25 02/06/25 02/06/25 02/06/25 06:22 06:34 06:35 06:37 Pulse 96 92 91 98 Resp 13 29 14 B/P (MAP) 133/76 (95) 131/69 (89) Pulse Ox 99 99 FiO2 60 02/06/25 02/06/25 02/06/25 02/06/25 07:00 07:15 07:30 07:45 Pulse 102 94 95 89 Resp 23 B/P (MAP) 142/93 (109) 124/76 (92) 113/69 (84) 118/69 (85) Pulse Ox 99 99 100 100 02/06/25 02/06/25 02/06/25 02/06/25 08:00 08:00 08:00 08:00 Temp 97.5 Pulse 94 Resp 21 B/P (MAP) 113/58 (76) Pulse Ox 100 98 O2 Delivery Ventilator+ FiO2 60 60 02/06/25 02/06/25 02/06/25 02/06/25 08:15 08:30 08:45 09:00 Pulse 92 91 96 98 Resp 22 B/P (MAP) 109/56 (73) 112/58 (76) 133/87 (102) 137/86 (103) Pulse Ox 100 100 100 98 02/06/25 02/06/25 02/06/25 02/06/25 09:04 09:15 09:30 09:45 Pulse 94 99 96 94 Resp 22 21 B/P (MAP) 140/81 (100) 133/82 (99) 126/72 (90) Pulse Ox 97 97 97 FiO2 40 02/06/25 02/06/25 02/06/25 02/06/25 10:00 10:15 10:15 10:30 Pulse 98 104 97 106 Resp 26 B/P (MAP) 138/92 (107) 147/92 (110) 151/91 (111) Pulse Ox 97 99 97 02/06/25 02/06/25 02/06/25 02/06/25 10:45 11:00 11:15 11:30 Pulse 109 111 109 108 Resp 24 21 14 B/P (MAP) 153/87 (109) 154/91 (112) 151/87 (108) 154/86 (108) Pulse Ox 97 97 98 97 02/06/25 02/06/25 02/06/25 02/06/25 11:45 12:00 12:00 12:00 Temp 98.1 Pulse 115 97 Resp 14 B/P (MAP) 144/86 (105) Pulse Ox 97 FiO2 40 40 02/06/25 02/06/25 02/06/25 02/06/25 12:00 12:00 12:15 12:30 Pulse 119 116 115 Resp 24 18 13 B/P (MAP) 147/88 (107) 146/79 (101) 135/80 (98) Pulse Ox 97 97 97 97 O2 Delivery Ventilator+ FiO2 40 02/06/25 12:45 Pulse 113 Resp 20 B/P (MAP) 144/80 (101) Pulse Ox 97 Intake & Output (last 24hrs) 02/05/25 02/05/25 02/06/25 15:00 23:00 07:00 Intake Total 1336.2 ml 1493.2 ml 1513.2 ml Output Total 1100 ml 800 ml Balance 1336.2 ml 393.2 ml 713.2 ml LABS: Laboratory: Test 02/06/25 12:50 02/06/25 11:14 02/06/25 09:30 02/06/25 09:00 Range/Units Urine Random Creatinine 59.00 30-135 mg/dL Urine Random Total Protein 191.7 H 0-11.9 mg/dL Urine Random Sodium 66 40-220 mmol/l Urine Random Potassium 22 L 25-125 mmol/L Urine Random Chloride 53 L 110-250 mmol/L Whole Blood Glucose 258 H 70-110 MG/DL Lactic Acid Level 3.3 H 0.8-2.5 mmol/L Procalcitonin 0.17 0.05-0.5 ng/mL Blood Gas Specimen Type Arterial Arterial Blood pH 7.253 L 7.350-7.450 Arterial Blood Partial Pressure CO2 46 35-48 mmHg Arterial Blood Partial Pressure O2 178.5 H 83.0-108.0 mmHg Arterial Blood HCO3 20.0 L 21.0-28.0 mmol/L Arterial Blood Oxygen Saturation 98.9 H 94.0-98.0 % Arterial Blood Base Excess -7.0 L -2.0-3.0 mmol/L Hemoglobin (Blood Gas) 10.7 L 13.5-17.5 g/dL Sodium (Blood Gas) 137 136-145 MMOL/L Bedside Potassium (Blood Gas) 5.4 H 3.4-4.5 MMOL/L Bedside Chloride (Blood Gas) 112 H 98-107 MMOL/L Bedside Glucose (Blood Gas) 282 H 65-95 MG/DL Bedside Ionized Calcium (Blood Gas) 1.22 1.15-1.33 MMOL/L Bedside Lactic Acid (Blood Gas) 3.40 *H 0.36-0.75 MMOL/L Blood Gas Temperature 37.0 35.5-37.0 CELSIUS Blood Gas Respiration Rate 24.0 min. Blood Gas Vent Mode AC ROOM AIR FiO2 60.0 % Blood Gas Tidal Volume 500 ml Blood Gas PEEP 10 cm H2O Blood Gas Specimen Comment RR, LUKAS,THOM Test 02/06/25 04:38 02/05/25 11:04 Range/Units White Blood Count 7.5 4.8-10.8 K/uL Red Blood Count 3.90 L 4.50-6.20 MIL/uL Hemoglobin 10.8 L 14.0-18.0 g/dL Hematocrit 34.4 L 42-54 % Mean Corpuscular Volume 88.2 79-99 fL Mean Corpuscular Hemoglobin 27.7 27.0-33.0 pg Mean Corpuscular Hemoglobin Concent 31.4 L 32.0-36.0 g/dL Red Cell Distribution Width 14.3 11.0-15.5 % Platelet Count 292 130-400 K/uL Mean Platelet Volume 10.6 H 7.5-10.5 fL Nucleated Red Blood Cells 0.0 0.0-0.19 % Sodium Level 140 136-145 mmol/L Potassium Level 5.6 H 3.5-5.1 mmol/L Chloride Level 109 101-111 mmol/L Carbon Dioxide Level 20 L 21-32 mmol/L Blood Urea Nitrogen 37 H 7-18 mg/dL Creatinine 1.5 H 0.5-1.3 mg/dL Glomerular Filtration Rate Calc 59 >90 mL/min Random Glucose 228 H 70-105 mg/dL Total Calcium 8.0 L 8.5-10.1 mg/dL Total Bilirubin 0.8 0.2-1.0 mg/dL Aspartate Amino Transf (AST/SGOT) 54 H 10-37 U/L Alanine Aminotransferase (ALT/SGPT) 27 12-78 U/L Alkaline Phosphatase 142 H 50-136 U/L B-Type Natriuretic Peptide 84 0-100 pg/mL Total Protein 6.8 6.0-8.3 g/dL Albumin 1.6 L 3.5-5.0 g/dL Whole Blood Ketones Quantitative 0.4 0.0-0.6 mmol/L ASSESSMENT: Acute hypoxic and hypercapnic respiratory failure, s/p intubation. Multifocal pneumonia. Suspected advanced stage HIV, not on anti-retroviral therapy, POA. Suspected Pneumocystis pneumonia. Sepsis. Acute renal failure, improving. Oral candidiasis. Morbid obesity. PLAN: Continue cefepime. Continue doxycycline IV. Continue Bactrim IV. Continue fluconazole IV. Continue GI prophylaxis. Continues on mechanical ventilatory support. Continue critical care support. NG tube feedings on hold due to large residual. Case management to contact [facility] to be able to start HIV management. This case was reviewed and discussed with my supervising physician Dr. Sigala and the above assessment and plan was formulated and agreed upon. ATTESTATION BY PHYSICIAN I have seen and examined the patient. I reviewed the documentation, medical decision making, and treatment plan as noted by the mid-level provider above. I agree with the findings and plan of care. MIRZA SIGALA MD, [facility] Feb 06, 2025 15:35
--- NOTE | 2025-02-06 15:58 | NUR ---
DC PLAN [facility] GOT A TRIGGER FOR [facility] FOR MEDICATIONS. PATIENT VENTED. SPOKE TO POA SISTER. GOT NELLY SIGNED. PACKET MADE AND SENT TO [facility] ATTN [facility]IR[facility].
[2025-02-06] MEDS: NA ZIRCON CYCLOSIL(LOKELMA 10GM) PO ONE (21:06)
--- NOTE | 2025-02-06 21:51 | HMCIMG ---
EXAM: CR CHEST, 1 VIEW CLINICAL HISTORY: PNA, INTUBATED. COMPARISON: CR: CHEST 1VW dated 02/05/2025 11:42 AM EST: TECHNIQUE: Single frontal radiograph of the chest was obtained. FINDINGS: Lines/Devices: The endotracheal tube is seen with its tip terminating about 5.2 cm above the catina, as compared to 3.5 cm in the previous study . The previously noted right PICC is not seen in today's study. A nasogastric tube is seen with its tip extending to the upper part of the abdomen Lungs: Bilateral diffuse airspace disease is present, more evident at the basal regions, mostly reflecting an infectious process. There is no pleural effusion. There is no pneumothorax. Mediastinum and cardiovascular structures: The cardiac silhouette is not enlarged. The central airway and mediastinal contours are unremarkable. Bones and soft tissues: Unremarkable. IMPRESSION: 1. Bilateral diffuse airspace disease, more evident at the basal regions, mostly reflecting an infectious process. 2. Endotracheal tube tip terminates about 5.2 cm above the catina, as compared to 3.5 cm in the previous study. 3.A nasogastric tube is seen with its tip extending to the upper part of the abdomen 4.As compared to the previous CR: CHEST 1VW dated 02/05/2025 11:42 AM EST: , the bilateral basilar airspace disease demonstrates stationary course, mild caudal positioning of the endotracheal tube for correlation with clinical data, the previously noted right PICC is not seen in today's study ( mostly removed) . /[place]
[2025-02-07] VITALS (109 sets, daily range): BP systolic 93–160; BP diastolic 37–97; PULSE 89–119; RESP 11–91; TEMP 97.8–98.8; O2SAT 94–99
[2025-02-07 03:48] LABS: ABG BASE EXCESS -6.0 mmol/L (-2.0-3.0); ABG HCO3 19.1 mmol/L (21.0-28.0); ABG OXYGEN SATURATION 95.5 % (94.0-98.0); ABG PCO2 37 mmHg (35-48); ABG PH 7.333 (7.350-7.450); PO2, ARTERIAL BG 81.9 mmHg (83.0-108.0); TEMPERATURE, CELSIUS BG 37.0 CELSIUS (35.5-37.0); VENT MODE, BG RR ACVC (ROOM AIR)
[2025-02-07 05:15] LABS: IMMATURE GRANULOCYTE ABSOLUTE 0.11 K/uL (0-1); NUCLEATED RED BLOOD CELLS 0.0 % (0.0-0.19); PLATELET COUNT (AUTO) 247 K/uL (130-400); RED BLOOD CELL COUNT(AUTO) 3.24 MIL/uL (4.50-6.20); RED CELL DISTRIBUTION WIDTH 14.0 % (11.0-15.5); WHITE BLOOD COUNT (AUTO) 7.4 K/uL (4.8-10.8)
[2025-02-07 05:39] LABS: % IRON SATURATION 50.0 % (30-44); IRON, SERUM 72.0 mcg/dL (65-175); MAN.DIFF COMMENT-IMPRESSION MANUAL DIFFERENTIAL; MONOCYTES % (MANUAL) 1 % (2-9); SEGMENTED NEUTROPHILS % 99 % (40-70)
[2025-02-07 05:43] LABS: ASPARTATE AMINOTRANSFERASE 54.0 U/L (10-37); CREATININE 1.7 mg/dL (0.5-1.3); GLOMERULAR FILTR. RATE CALC 51.0 mL/min (>90); GLUCOSE,RANDOM 297.0 mg/dL (70-105); SODIUM SERUM 139.0 mmol/L (136-145); TOTAL PROTEIN, SERUM 6.2 g/dL (6.0-8.3); UREA NITROGEN, BLOOD 43.0 mg/dL (7-18)
--- NOTE | 2025-02-07 06:18 | HMCIMG ---
EXAMINATION: ULTRASOUND OF THE RETROPERITONEUM. CLINICAL HISTORY: JUAN. COMPARISON: None. TECHNIQUE: Real-time grayscale ultrasound images of the kidneys. FINDINGS: The kidneys are normal in caliber, the right kidney measures 12.9 x 6.5 x 6.5 cm and the left kidney measures 11.0 x 5.6 x 5.5 cm in its craniocaudal, AP, and transverse dimensions respectively. There is normal renal cortical thickness, and cortical echogenicity. There is no renal calculus or hydronephrosis. The urinary bladder is partially distended with mild wall thickening (0.6 cm). There are no calculi in the urinary bladder. IMPRESSION: Urinary bladder wall thickening of concern for cystitis. /[place]
[2025-02-07] MEDS: SODIUM BICARB 50MEQ 50ML VIAL IV ONE (09:07)
--- NOTE | 2025-02-07 09:51 | PN ---
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 lung curtis raising concern for severe diffuse pneumonia/ARDS like pattern Continue fluconazole 200 mg IV Q 24 , TMP SMX q.6 Continue on IV cefepime2 g q.12h , doxycycline q.12h IV Pulmonology, Infectious Disease on board. We will follow their recommendations. Suspected undiagnosed HIV infection POA Patient had history of on unsafe sexual practices with multiple partners reported by her sister HIV1 and 2 Ab, HIV P 24 Ag evaluation showed preliminary positive for both HIV1 and 2 antigen/antibody, 4th gen preliminary reactive Absolute CD4 count 19, CD4/CD8 ratio 0.04 HIV 1RNA PCR showed a viral load of [id number] Case management working with [facility] for HIV management. ID on board. Not on any anti-retroviral therapy yet. Systemic inflammatory response with organ dysfunction due to suspected infection POA On presentation to ED patient's temperature 100.2, pulse 112, respiratory rate 28, lactic acid 2, protocol 1.55 Chest x-ray showed diffuse bilateral pneumonia with ARDS type picture CT chest showed bilateral airspace opacities involving nearly entire lung curtis raising concern for severe diffuse pneumonia/ARDS like pattern Continue fluconazole 200 mg IV Q 24 , TMP SMX q.6 Continue on IV cefepime2 g q.12h , continue doxycycline q.12h IV Lactic acid today 3.3 We will trend white count, lactic acid Uncontrolled hyperglycemia secondary to steroids Blood glucose in the morning was 322 and well elevated likely from steroids. Continue to monitor the blood glucose level. Continue insulin sliding scale. Tuberculosis R/O POA 3 out of 3 sputum samples collected for AFB smear. Sputum sample is sent for respiratory culture, we will follow up with the culture results. GI prophylaxis with Pepcid 20 mg IV DVT prophylaxis with heparin 5000 SQ q.12h ATTESTATION BY PHYSICIAN I have seen and examined the patient. I reviewed the documentation, medical decision making, and treatment plan as noted by the resident physician above. I agree with the findings and plan of care. DIANN MITCHELL MD, ADIL SHAH QUADRI MD Feb 07, 2025 09:51
--- NOTE | 2025-02-07 14:42 | PN ---
[facility] PROGRESS NOTE Date Patient Seen: Feb 07, 2025 Time of Visit: 14:38 Supervising Physician: Dr Saul Cerda Primary Care Physician: [Avi LESTER] Outpatient Specialists: [ ] Inpatient Consults: [Dr. Sigala-MARION, [facility]-ICU] PROBLEM LIST: Acute hypoxemic and hypercarbic respiratory failure now with worsening respiratory distress ARDS Community-acquired pneumonia suspected Pneumocystis Toxic metabolic encephalopathy on admission Acute sepsis on admission without septic shock secondary to community-acquired pneumonia HIV positive newly diagnosed stage IV. Not on anti-retroviral medication CD4 count: 19 Immunocompromise status Suspected TB Obstructive sleep apnea, untreated/undiagnosed Morbid obesity, BMI 33.6 JUAN Volume overload INTERVAL HISTORY: Patient was seen and examined, all labs and imaging have been reviewed Patient remains sedated on fentanyl and propofol, with weaning patient is able to open his eyes and follow commands, he appears comfortable Vent settings have been changed we are down to 40% FiO2 with a PEEP of 5 and a rate at 20, we are pending a repeat ABG Patient diuresed well 3 L in the last 24 with an additional 3.4 L just this morning after an additional Lasix given Patient's chest x-ray continues to improve Patient's potassium remains elevated at 5.5, we are continuing with the Lokelma 10 b.i.d. and we will hold when potassium drops less than 5 We are pending send outs of sputum Plan: We are following ID recs for antibiotics Vent management Antibiotics, steroids I&Os, nephrology has been consulted, we will attempt to diurese Follow daily chest x-ray, ABG Total critical care time spent 49 minutes, this excludes any procedures perform ed or any time spent in educational or teaching. REVIEW OF SYSTEMS: Patient on Precedex drip, unable to obtain information from patient. PHYSICAL EXAM: GENERAL: On BiPAP assistance, encephalopathic and nonverbal HEENT: EOMI, Sclera non icteric, moist mucosa NECK: Supple, no JVD, trachea midline LUNGS: Fine crackles bilaterally. Increased work of breathing, intercostal retractions HEART: Regular rate and rhythm. Normal S1 and S2, without murmurs ABD: Abdomen soft, nontender. Bowel sounds present, obese EXT: No clubbing cyanosis or edema : Dias in situ NEURO: Obtunded Vital Signs (last 8hr) Date Time Temp Pulse Resp B/P (MAP) Pulse Ox O2 Delivery O2 Flow Rate FiO2 02/07/25 13:15 95 27 101/39 (59) 93 02/07/25 13:00 99 20 121/53 (75) 95 02/07/25 12:45 100 15 116/68 (84) 96 02/07/25 12:30 94 17 101/37 (58) 93 02/07/25 12:17 40 02/07/25 12:15 94 17 103/46 (65) 93 02/07/25 12:00 107 40 02/07/25 12:00 99 Ventilator+ 40 02/07/25 12:00 100 13 107/52 (70) 94 02/07/25 12:00 98.8 Ventilator 40 02/07/25 11:45 108 20 131/73 (92) 96 02/07/25 11:30 106 33 140/79 (99) 97 02/07/25 11:15 104 16 121/66 (84) 95 02/07/25 11:00 110 28 132/67 (88) 96 02/07/25 10:45 110 25 137/79 (98) 96 02/07/25 10:30 111 15 142/82 (102) 96 02/07/25 10:15 107 17 141/78 (99) 98 02/07/25 10:09 94 26 02/07/25 10:00 104 15 146/97 (113) 96 02/07/25 09:15 100 25 139/89 (106) 96 02/07/25 09:10 105 40 02/07/25 09:00 92 24 115/54 (74) 97 02/07/25 08:45 90 24 113/50 (71) 96 02/07/25 08:30 91 24 114/53 (73) 96 02/07/25 08:17 40 02/07/25 08:15 90 24 118/60 (79) 97 02/07/25 08:00 98 Ventilator+ 40 02/07/25 08:00 92 24 116/58 (77) 97 02/07/25 07:56 97.9 Ventilator 40.0 02/07/25 07:45 91 24 116/58 (77) 97 02/07/25 07:30 92 24 117/55 (75) 96 02/07/25 07:15 93 24 120/67 (84) 97 LABS: Hematology Labs: Test 02/07/25 04:59 Range/Units White Blood Count 7.4 4.8-10.8 K/uL Red Blood Count 3.24 L 4.50-6.20 MIL/uL Hemoglobin 9.2 L 14.0-18.0 g/dL Hematocrit 27.7 L 42-54 % Mean Corpuscular Volume 85.5 79-99 fL Mean Corpuscular Hemoglobin 28.4 27.0-33.0 pg Mean Corpuscular Hemoglobin Concent 33.2 32.0-36.0 g/dL Red Cell Distribution Width 14.0 11.0-15.5 % Platelet Count 247 130-400 K/uL Mean Platelet Volume 10.7 H 7.5-10.5 fL Immature Granulocyte % (Auto) 1.5 H 0-1 % Neutrophils (%) (Auto) 96.3 H 40.0-77.0 % Lymphocytes (%) (Auto) 1.3 L 21.0-51.0 % Monocytes (%) (Auto) 0.8 L 3.0-13.0 % Eosinophils (%) (Auto) 0.0 0.0-8.0 % Basophils (%) (Auto) 0.1 0.0-5.0 % Neutrophils # (Auto) 7.1 1.8-7.7 K/uL Lymphocytes # (Auto) 0.1 L 1.0-4.8 K/uL Monocytes # (Auto) 0.1 0.1-1.0 K/uL Eosinophils # (Auto) 0.00 0.00-0.70 K/uL Basophils # (Auto) 0.01 0.00-0.20 K/uL Absolute Immature Granulocyte (auto 0.11 0-1 K/uL Segmented Neutrophils % 99 H 40-70 % Monocytes % (Manual) 1 L 2-9 % Nucleated Red Blood Cells 0.0 0.0-0.19 % Differential Comment MANUAL DIFFERENTIAL White Cell Morphology Comment Platelet Morphology Comment See comments Red Blood Cell Morphology ANISO 1+ Chemistry Labs: Test 02/07/25 11:41 02/07/25 04:59 02/06/25 09:30 02/06/25 04:38 Range/Units Whole Blood Glucose 332 H 70-110 MG/DL Sodium Level 139 136-145 mmol/L Potassium Level 5.5 H 3.5-5.1 mmol/L Chloride Level 107 101-111 mmol/L Carbon Dioxide Level 22 21-32 mmol/L Blood Urea Nitrogen 43 H 7-18 mg/dL Creatinine 1.7 H 0.5-1.3 mg/dL Glomerular Filtration Rate Calc 51 >90 mL/min Random Glucose 297 H 70-105 mg/dL Uric Acid 2.9 2.6-7.2 mg/dL Total Calcium 7.8 L 8.5-10.1 mg/dL Iron Level 72 65-175 mcg/dL Total Iron Binding Capacity 144 L 250-450 mcg/dL Percent Iron Saturation 50.0 H 30-44 % Total Bilirubin 0.7 0.2-1.0 mg/dL Aspartate Amino Transf (AST/SGOT) 54 H 10-37 U/L Alanine Aminotransferase (ALT/SGPT) 37 12-78 U/L Alkaline Phosphatase 129 50-136 U/L Total Protein 6.2 6.0-8.3 g/dL Albumin 1.5 L 3.5-5.0 g/dL Lactic Acid Level 3.3 H 0.8-2.5 mmol/L Procalcitonin 0.17 0.05-0.5 ng/mL B-Type Natriuretic Peptide 84 0-100 pg/mL DIAGNOSTICS / RADIOLOGY RESULTS: [ ] PLAN NEURO: Minimize central acting medications as possible. Fall Precautions. Well lighted room through the day and minimize interruptions through the night to prevent acute delirium. PULMONARY: Supplemental 02 as needed Titrate Fio2 to keep Spo2 > or = 90% DuoNebs and CPT as needed IS hourly while awake for pulmonary hygiene Out of bed to chair as tolerated VAP Bundle Vent/BIPAP Settings: [ BIPAP setting 12/11 rate of 18 FiO2 60%. ] CARDIOVASCULAR: Follow hemodynamics. Titrate vasopressor to keep MAP >65 or systolic blood pressure >95mmHg DRIPS: [Precedex ] LINES: [PIV] GI & NUTRITION: Continue nutritional support Aspirations precautions Prokinetic agents and laxatives as needed KIDNEYS & ELECTROLYTES: Strict monitoring of intake and output Daily weights Avoid nephrotoxic agents Monitor electrolytes and replace as needed Dias care-prevent CAUTI per nursing Goal urine output of 30mL/hr or 0.5mL/kg/hr Urine output: [ ] Fluid Balance: [ ] ENDOCRINE: Maintain blood glucose between 100-180 at all times. Insulin sliding scale for blood glucose management INFECTIOUS DISEASE: Trend temperature. Lara-culture if febrile. Micro: [ ] Antibiotics: [Vancomycin 01/30- IV Fluconazole: 01/30- IV Sulfa/TMP: 01/30-] HEMATOLOGY & COAGULATION: Monitor H&H. Keep Hgb > 7 Transfuse 1 unit of PRBC for Hgb < 7 Transfuse 1 pack of platelets of platelets < 20, 000 Watch for any signs and symptoms of bleeding SKIN: Pressure ulcer prevention per facility protocol Rehab: PT/OT Prophylaxis: GI: [Pepcid] DVT: [Heparin ] Code Status: Full Resuscitation Disposition: [ICU ] BIANCA WICK PAC Feb 07, 2025 14:42
--- NOTE | 2025-02-07 15:06 | PN ---
NEPHROLOGY PROGRESS NOTE Date/Time Patient Seen: Feb 07, 2025 SUBJECTIVE: This is a 44-year-old male with HIV positive newly diagnosed He was brought by EMS to the ED for complaints of shortness of breaths for the past two weeks. He has been in the hospital for several days He continues on antibiotics, including Bactrim, as per ID. He was noted to have elevated BUN/creatinine We are consulted for renal failure Renal function remains elevated Electrolytes show hyperkalemia Renal ultrasound showed partially distended bladder with no hydronephrosis or renal calculus He continues on Lasix, urine output was noted Tolerating tube feedings He was seen in the ICU, Continues to be intubated and sedated No family at the bedside Prognosis remains guarded REVIEW OF SYSTEMS: Difficult to obtain given status of the patient who remains intubated mechanically ventilated PHYSICAL EXAM: General: acutely ill, sedated, intubated, and mechanically ventilated HEENT: head is atraumatic, pupils equal and reactive, ET tube in place Neck: supple, no masses, no lymphadenopathy, no thyromegaly, no JVD Lungs: decreased breath sounds bilaterally, symmetrical chest movement Cardio: regular rate, S1 and S2 normal, no rub or gallop Abdomen: soft, non tender, no distension, no organomegaly Extremities: trace edema bilateral lower extremities, no cyanosis or clubbing Skin: no rashes or suspicious lesions Neuro: sedated LABORATORY: [ ] Hematology Labs: Test 02/07/25 04:59 Range/Units White Blood Count 7.4 4.8-10.8 K/uL Red Blood Count 3.24 L 4.50-6.20 MIL/uL Hemoglobin 9.2 L 14.0-18.0 g/dL Hematocrit 27.7 L 42-54 % Mean Corpuscular Volume 85.5 79-99 fL Mean Corpuscular Hemoglobin 28.4 27.0-33.0 pg Mean Corpuscular Hemoglobin Concent 33.2 32.0-36.0 g/dL Red Cell Distribution Width 14.0 11.0-15.5 % Platelet Count 247 130-400 K/uL Mean Platelet Volume 10.7 H 7.5-10.5 fL Immature Granulocyte % (Auto) 1.5 H 0-1 % Neutrophils (%) (Auto) 96.3 H 40.0-77.0 % Lymphocytes (%) (Auto) 1.3 L 21.0-51.0 % Monocytes (%) (Auto) 0.8 L 3.0-13.0 % Eosinophils (%) (Auto) 0.0 0.0-8.0 % Basophils (%) (Auto) 0.1 0.0-5.0 % Neutrophils # (Auto) 7.1 1.8-7.7 K/uL Lymphocytes # (Auto) 0.1 L 1.0-4.8 K/uL Monocytes # (Auto) 0.1 0.1-1.0 K/uL Eosinophils # (Auto) 0.00 0.00-0.70 K/uL Basophils # (Auto) 0.01 0.00-0.20 K/uL Absolute Immature Granulocyte (auto 0.11 0-1 K/uL Segmented Neutrophils % 99 H 40-70 % Monocytes % (Manual) 1 L 2-9 % Nucleated Red Blood Cells 0.0 0.0-0.19 % Differential Comment MANUAL DIFFERENTIAL White Cell Morphology Comment Platelet Morphology Comment See comments Red Blood Cell Morphology ANISO 1+ Chemistry Labs: Test 02/07/25 11:41 02/07/25 04:59 02/06/25 09:30 02/06/25 04:38 Range/Units Whole Blood Glucose 332 H 70-110 MG/DL Sodium Level 139 136-145 mmol/L Potassium Level 5.5 H 3.5-5.1 mmol/L Chloride Level 107 101-111 mmol/L Carbon Dioxide Level 22 21-32 mmol/L Blood Urea Nitrogen 43 H 7-18 mg/dL Creatinine 1.7 H 0.5-1.3 mg/dL Glomerular Filtration Rate Calc 51 >90 mL/min Random Glucose 297 H 70-105 mg/dL Uric Acid 2.9 2.6-7.2 mg/dL Total Calcium 7.8 L 8.5-10.1 mg/dL Iron Level 72 65-175 mcg/dL Total Iron Binding Capacity 144 L 250-450 mcg/dL Percent Iron Saturation 50.0 H 30-44 % Total Bilirubin 0.7 0.2-1.0 mg/dL Aspartate Amino Transf (AST/SGOT) 54 H 10-37 U/L Alanine Aminotransferase (ALT/SGPT) 37 12-78 U/L Alkaline Phosphatase 129 50-136 U/L Total Protein 6.2 6.0-8.3 g/dL Albumin 1.5 L 3.5-5.0 g/dL Lactic Acid Level 3.3 H 0.8-2.5 mmol/L Procalcitonin 0.17 0.05-0.5 ng/mL B-Type Natriuretic Peptide 84 0-100 pg/mL DIAGNOSTICS / RADIOLOGY: [place] [address] [place] [id number] IMAGING REPORT Signed PATIENT: CHARY HERNANDEZ MR#: [id number] : 1980 SEX: M AGE: 44 LOCATION: 2CH ORDER 1341 STATUS: ADM IN REPORT#: [id number] SERVICE 1337 REASON: JUAN ORDERING PHYSICIAN: DARBY PORRAS MD PROCEDURE: RENAL - US RENAL SONOGRAM EXAMINATION: ULTRASOUND OF THE RETROPERITONEUM. CLINICAL HISTORY: JUAN. COMPARISON: None. TECHNIQUE: Real-time grayscale ultrasound images of the kidneys. FINDINGS: The kidneys are normal in caliber, the right kidney measures 12.9 x 6.5 x 6.5 cm and the left kidney measures 11.0 x 5.6 x 5.5 cm in its craniocaudal, AP, and transverse dimensions respectively. There is normal renal cortical thickness, and cortical echogenicity. There is no renal calculus or hydronephrosis. The urinary bladder is partially distended with mild wall thickening (0.6 cm). There are no calculi in the urinary bladder. IMPRESSION: Urinary bladder wall thickening of concern for cystitis. /[place] DICTATED BY: LARISSA LEMONS Jr., MD DATE: 02/07/25716 ELECTRONICALLY SIGNED BY: LARISSA LEMONS Jr., MD DATE: 02/07/25716 PATIENT: CHARY HERNANDEZ MR#: [id number] : 1980 SEX: M AGE: 44 LOCATION: 2CH ORDER 1118 STATUS: ADM IN REPORT#: [id number] SERVICE 1145 REASON: post intubation ORDERING PHYSICIAN: COMPA PATRICK MD PROCEDURE: CXR1VW - CHEST 1VW EXAM: CR Chest, 2 View. CLINICAL HISTORY: post intubation COMPARISON: Radiograph from February 04, 2025 FINDINGS: Endotracheal tubes in satisfactory position, tip terminating 3.5 cm above the catina. Right PICC terminates overlying the SVC. Bibasilar airspace disease may reflect an infectious process. No pleural effusion or pneumothorax. Heart size is stable. Pulmonary vessels are within normal limits. IMPRESSION: 1. Endotracheal tube and right PICC line in satisfactory positions. 2. Bibasilar airspace disease, possibly infectious. /[place] DICTATED BY: LARISSA LEMONS Jr., MD DATE: 02/05/251408 ELECTRONICALLY SIGNED BY: LARISSA LEMONS Jr., MD DATE: 02/05/251408 PATIENT: CHARY HERNANDEZ MR#: [id number] : 1980 SEX: M AGE: 44 LOCATION: 2CH ORDER 9 STATUS: ADM IN REPORT#: [id number] SERVICE 8 REASON: ngt placement for TF ORDERING PHYSICIAN: ISAC MATHEW MD PROCEDURE: ABD 1VW - ABD 1VW EXAM: CR Abdomen, 1 View. CLINICAL HISTORY: ngt placement for TF COMPARISON: None provided. FINDINGS: BOWEL: The transverse colon is filled with gas and fecal content could be due to constipation Nasogastric tubes projecting below lthe eft hemidiaphragm in the stomach PERITONEUM/SOFT TISSUES: No free air evident. No pathologic appearing calcification. BONES: No acute osseous abnormality. IMPRESSION: The nasogastric tube is projected below the left hemidiaphragm over the stomach, tip is located in the body portion of the stomach Gas and fecal-loaded transverse colon consistent with constipation /[place] DICTATED BY: LARISSA LEMONS Jr., MD DATE: 02/03/251138 ELECTRONICALLY SIGNED BY: LARISSA LEMONS Jr., MD DATE: 02/03/251138 PATIENT: CHARY HERNANDEZ MR#: [id number] : 1980 SEX: M AGE: 44 LOCATION: [facility] ORDER 1 STATUS: ADM IN REPORT#: [id number] SERVICE 5 REASON: hypoxia ORDERING PHYSICIAN: BIANCA GARCIA PROCEDURE: ECHO CMP - ECHO 2-D COMPLETE APPROVED REPORT EXAM: Two-dimensional and M-mode echocardiogram with Doppler and color Doppler. INDICATION ICD: R06.02 Shortness of breath 2D Dimensions RVDd 4.5 cm LVEF(%) 58.7 (>50%) LVED Vol(simp.) 152.0 mL IVSd 1.2 (0.7-1.1cm) FS(%) 32 % LVES Vol(simp.) 70.0 mL LVDd 6.1 (3.8-5.6cm) LA (2D) 4.0 (1.6-4.0cm) LVEF(%, simp.) 54 % PWd 0.8 (0.7-1.1cm) Ao Root(2D) 3.4 (2.0-3.7cm) LA ESV INDEX (BP) 26.38 mL/m2 IVSs 1.5 cm LVOT diam 2.7 (1.8-2.4cm) LVDs 4.1 (2.5-4.0cm) IVC diam 2.7 cm PWs 1.1 cm Deformation Strain Apical 4 -16.1 % Apical 2 -16.4 % Apical 3 -17.4 % Global Strain -16.6 % M-Mode Dimensions EPSS 0.3 cm LA (MM) 4.2 (1.6-4.0cm) Ao Root(MM) 4.0 (2.0-3.7cm) Aortic Valve AoV Vmax 1.4 m/s Ao Peak GR 7.3 mmHg LVOT Vmax 1.2 m/s AoV VTI 0.3 m Ao Mean GR 4.7 mmHg LVOT VTI 0.23 m MINH (VMAX) 5.28 cm2 MINH (VTI) 5.3 cm2 Mitral Valve MV E Vmax 88.4 cm/s DECEL Time 146 ms MV A Vmax 76.4 cm/s P 1/2 T 41 ms E/A ratio 1.2 MVA (PHT) 5.4 cm2 TDI E/E' Medial 10.2 E/E' Lateral 10.5 Medial E' Peak V 8.64 cm/s Lateral E' Peak V 8.43 cm/s Pulmonary Valve PV Vmax 0.8 m/s PV Peak GR 2.3 mmHg Tricuspid Valve TR Vmax 1.1 m/s RAP (EST) 8 mmHg RVSP 12.9 mmHg TR Peak GR 4.9 mmHg Left Ventricle The left ventricle is normal size. GLS -16.0% There is normal LV segmental wall motion. There is mild left ventricular wall thickness. LVEF is 55%. The LV diastolic function was unable to be assessed due to atrial arrhythmia. Right Ventricle The right ventricle is normal size. The right ventricular systolic function is normal. Atria The left atrium size is normal. The right atrium size is normal. Aortic Valve The aortic valve is normal in structure. No aortic regurgitation is present. There is no aortic valvular stenosis. Mitral Valve The mitral valve is normal in structure. There is trace of mitral valve regurgitation noted. There is no mitral valve stenosis. Tricuspid Valve The tricuspid valve is normal in structure. There is no tricuspid valve regurgitation noted. Pulmonic Valve The pulmonary valve is normal in structure. There is mild pulmonic valvular regurgitation. Great Vessels The aortic root is normal in size. IVC is dilated and collapses >50% with inspiration. Pericardium There is no pericardial effusion. Other Information Quality : Technically diffcult study due to body habitus Conclusion LVEF is 55%. DICTATED BY: CAROL GALLAGHER MD DATE: 01/31/25844 ELECTRONICALLY SIGNED BY: CAROL GALLAGHER MD DATE: 01/31/252052 PATIENT: CHARY HERNANDEZ MR#: [id number] : 1980 SEX: M AGE: 44 LOCATION: [facility] ORDER STATUS: ADM IN HOSPITAL REPORT#: [id number] SERVICE REASON: r/o DVT ORDERING PHYSICIAN: BIANCA GARCIA PROCEDURE: VENOUS GRACIE - US VENOUS DOPPLER BILATERAL EXAM: US for Deep Venous Thrombosis, bilateral Lower Extremity. CLINICAL HISTORY: Rule out deep venous thrombosis. TECHNIQUE: Real-time ultrasound scan of the veins of the bilateral lower extremity with color Doppler flow, spectral waveform analysis and compression. COMPARISON: None provided. FINDINGS: DEEP VEINS: The common femoral, superficial femoral, and popliteal veins are echolucent and compressible. There is normal color Doppler flow throughout. The visualized calf veins appear patent. SOFT TISSUES: No popliteal fossa cyst or other abnormalities. IMPRESSION: No deep venous thrombosis is evident on bilateral lower extremity examination. /[place] DICTATED BY: LARISSA LEMONS Jr., MD DATE: 01/31/25400 ELECTRONICALLY SIGNED BY: LARISSA LEMONS Jr., MD DATE: 01/31/25400 PATIENT: CHARY HERNANDEZ MR#: [id number] : 1980 SEX: M AGE: 44 LOCATION: [facility] ORDER STATUS: ADM IN REPORT#: [id number] SERVICE REASON: r/o P.E. ORDERING PHYSICIAN: BIANCA GARCIA PROCEDURE: CHES PE - CT CHEST PE PROTOCOL WWO CONT EXAMINATION: CT Chest, with intravenous contrast CLINICAL HISTORY: Patient presents to rule out pulmonary embolism. TECHNIQUE: Axial computed tomography images of the chest, with intravenous contrast. Multiplanar reformations were generated and reviewed. CONTRAST: With intravenous contrast. COMPARISON: None provided. FINDINGS: CHEST: LUNGS: The lungs demonstrate extensive diffuse consolidation and airspace opacities and ground-glassing throughout the bilateral lungs, predominantly involving the lower lobes and perihilar regions. No pulmonary mass. PLEURAL SPACES: No pneumothorax or pleural effusion. CARDIOVASCULAR: Cardiomegaly is present. No significant pericardial effusion. The main pulmonary artery measures 3.2 cm. The right pulmonary artery measures 2 cm. The left pulmonary artery measures 2.2 cm. The pulmonary arteries show no evidence of filling defects. Normal caliber thoracic aorta. MEDIASTINUM AND SILVINO: No mediastinal or hilar lymphadenopathy. ABDOMEN : Hepatosplenomegaly BONES: No acute or aggressive osseous abnormality. IMPRESSION: No acute pulmonary embolism. Extensive diffuse bilateral pulmonary airspace opacities, predominantly in the lower lobes and perihilar regions, consistent with pulmonary edema. Cardiomegaly with mild pulmonary arterial hypertension. Hepatosplenomegaly. /[place] DICTATED BY: LARISSA LEMONS Jr., MD DATE: 01/31/25803 ELECTRONICALLY SIGNED BY: LARISSA LEMONS Jr., MD DATE: 01/31/25803 ASSESSMENT: Hyperkalemia Acute renal failure Acute hypoxemic and hypercarbic respiratory failure now with worsening respiratory distress ARDS Community-acquired pneumonia suspected Pneumocystis Toxic metabolic encephalopathy on admission Acute sepsis on admission without septic shock secondary to community-acquired pneumonia HIV positive newly diagnosed stage IV. Not on anti-retroviral medication CD4 count: 19 Immunocompromise status Suspected TB Obstructive sleep apnea, untreated/undiagnosed Morbid obesity, BMI 33.6 Volume overload PLAN: Labs, diagnostic, radiologic exams reviewed and interpreted by myself and supervising physician. We have reviewed external records in detail Flush Dias catheter PRN There is no need for emergent renal replacement therapy at this time. Recommend changing tube feedings to Nepro if hyperkalemia persists Continue with close monitoring of electrolytes and renal function Continue with Bactrim, Lokelma 10 g may be used for hyperkalemia. Pharmacy to renally dose antibiotics Require close monitoring of renal function and electrolytes Order CBC, CMP, ferritin, and electrolytes in am Continue with antibiotics as per ID Continue mechanical ventilation and sedation IV pressors as needed Monitor blood pressure adjust medication doses as needed Avoid hypotensive episodes May use Dilaudid 0.5 mg IV every 6 hours as needed for severe pain Monitor blood sugars Strict intake, output, and daily weight should be monitored Please renally adjust medications Avoid nephrotoxic and nonsteroidal drugs Avoid contrast if possible Will continue to monitor renal function, anemia, electrolytes Treatment plan discussed with patient Questions were answered We have discussed with the other team physicians in detail about the care plan We will continue to monitor the patient closely Total critical care time spent with patient, nursing staff, critical care team over 35 minutes ATTESTATION BY PHYSICIAN I have seen and examined the patient. I reviewed the documentation, medical decision making, and treatment plan as noted by the mid-level provider above. I agree with the findings and plan of care. DARBY PORRAS MD, [facility] Feb 07, 2025 15:06
--- NOTE | 2025-02-07 16:50 | HMCIMG ---
EXAM: CR Chest, 2 View. CLINICAL HISTORY: Intubated. COMPARISON: 02/06/2025 FINDINGS: The endotracheal tube is seen with its tip terminating about 6.7 cm above the catina. The nasogastric tube terminates in the proximal stomach. LUNGS: Interval improvement in basilar predominant bilateral diffuse airspace disease is present. PLEURAL SPACES: No definite pleural effusion or pneumothorax. MEDIASTINUM: Cardiac size is stable. BONES: No aggressive appearing osseous lesion seen. IMPRESSION: 1. Interval improvement in bilateral basilar predominant airspace disease. 2. Endotracheal tube tip positioned 6.7 cm above catina. 3. The nasogastric tube terminates in the proximal stomach. /[place]
[2025-02-07 17:03] LABS: APPEARANCE,URINE CLEAR (CLEAR); GLUCOSE, URINE (UA) NEGATIVE (NEGATIVE); LEUKOCYTE ESTERASE ,URINE NEGATIVE Leu/uL (NEGATIVE); NITRATE,URINE NEGATIVE (NEGATIVE); OCCULT BLOOD,URINE TRACE-INTACT (NEGATIVE)
[2025-02-07 17:05] LABS: ADD UA MICROSCOPIC YES
[2025-02-07 17:19] LABS: STARCH,URINE Few /LPF (None Seen)
--- NOTE | 2025-02-07 19:22 | PN ---
INFECTIOUS DISEASE PROGRESS NOTE Date of Service: Feb 07, 2025 SUBJECTIVE: Patient was seen at bedside in room 217. Patient remains on mechanical ventilatory support. Case management coordinating HIV medications with [facility]. No fever, temperature is 98.8. We will continue on cefepime, Bactrim IV, doxycycline IV and fluconazole IV. No nausea or vomiting. Patient's brother present at bedside was updated with patient's status. PHYSICAL EXAM EYES: Anicteric. Pupils equal and reactive. HENT: Dry Oral mucosa. Oral thrush. NGT. NECK: Supple, no JVD or thyromegaly. LUNGS: On mechanical ventilatory support. CARDIOVASCULAR: S1, S2 regular. No murmur heard. ABDOMEN: Soft, non tender, bowel sounds present, no organomegaly. CENTRAL NERVOUS SYSTEM: Intubated. SKIN: Rash on abdomen and lower extremities. LYMPHATICS: No peripheral lymphadenopathy MUSCULOSKELETAL: No joint swelling, erythema or tenderness. EXTREMITIES: No cyanosis or clubbing. Weakness. BACK: No deformity, no pressure ulcer. GENITOURINARY: No dysuria or hematuria. Dias catheter. Vital Sign (Last 12 Hours) 02/07/25 02/07/25 02/07/25 02/07/25 07:30 07:45 07:56 08:00 Temp 97.9 Pulse 92 91 92 Resp B/P (MAP) 117/55 (75) 116/58 (77) 116/58 (77) Pulse Ox 96 97 97 O2 Delivery Ventilator O2 Flow Rate 40.0 02/07/25 02/07/25 02/07/25 02/07/25 08:00 08:15 08:17 08:30 Pulse 90 91 Resp 24 B/P (MAP) 118/60 (79) 114/53 (73) Pulse Ox 98 97 96 O2 Delivery Ventilator+ FiO2 40 40 02/07/25 02/07/25 02/07/25 02/07/25 08:45 09:00 09:10 09:15 Pulse 90 92 105 100 Resp 25 B/P (MAP) 113/50 (71) 115/54 (74) 139/89 (106) Pulse Ox 96 97 96 FiO2 40 02/07/25 02/07/25 02/07/25 02/07/25 10:00 10:09 10:15 10:30 Pulse 104 94 107 111 Resp 15 26 17 15 B/P (MAP) 146/97 (113) 141/78 (99) 142/82 (102) Pulse Ox 96 98 96 02/07/25 02/07/25 02/07/25 02/07/25 10:45 11:00 11:15 11:30 Pulse 110 110 104 106 Resp 28 16 33 B/P (MAP) 137/79 (98) 132/67 (88) 121/66 (84) 140/79 (99) Pulse Ox 96 96 95 97 02/07/25 02/07/25 02/07/25 02/07/25 11:45 12:00 12:00 12:00 Temp 98.8 Pulse 108 100 Resp 20 13 B/P (MAP) 131/73 (92) 107/52 (70) Pulse Ox 96 94 94 O2 Delivery Ventilator Ventilator+ FiO2 40 40 02/07/25 02/07/25 02/07/25 02/07/25 12:00 12:15 12:17 12:30 Pulse 107 94 94 Resp 17 17 B/P (MAP) 103/46 (65) 101/37 (58) Pulse Ox 93 93 FiO2 40 40 02/07/25 02/07/25 02/07/25 02/07/25 12:45 13:00 13:15 13:30 Pulse 100 99 95 91 Resp 15 20 27 31 B/P (MAP) 116/68 (84) 121/53 (75) 101/39 (59) 100/43 (62) Pulse Ox 96 95 93 94 02/07/25 02/07/25 02/07/25 02/07/25 13:45 14:00 14:15 14:30 Pulse 92 90 89 89 Resp 58 91 73 21 B/P (MAP) 105/40 (61) 99/37 (57) 101/38 (59) 111/47 (68) Pulse Ox 94 94 94 97 02/07/25 02/07/25 02/07/25 02/07/25 14:43 14:45 15:00 15:02 Pulse 89 93 93 95 Resp 22 87 75 B/P (MAP) 104/44 (64) 106/38 (60) Pulse Ox 97 95 FiO2 40 02/07/25 02/07/25 02/07/25 02/07/25 15:15 15:30 15:45 16:00 Pulse 91 97 100 Resp 26 16 20 B/P (MAP) 106/47 (66) 127/67 (87) 134/76 (95) Pulse Ox 94 95 96 95 O2 Delivery Ventilator+ FiO2 40 02/07/25 02/07/25 02/07/25 02/07/25 16:00 16:00 16:15 16:17 Temp 98.6 Pulse 106 106 Resp 25 B/P (MAP) 133/64 (87) 135/78 (97) Pulse Ox 95 94 O2 Delivery Ventilator FiO2 40 40 02/07/25 02/07/25 02/07/25 02/07/25 16:30 16:45 17:00 17:15 Pulse 109 108 119 111 Resp 24 22 63 B/P (MAP) 147/81 (103) 145/82 (103) 147/94 (111) 160/96 (117) Pulse Ox 95 95 96 95 02/07/25 02/07/25 02/07/25 17:30 18:55 18:56 Pulse 113 91 93 Resp 24 22 B/P (MAP) 155/97 (116) Pulse Ox 95 FiO2 40 Intake & Output (last 24hrs) 02/06/25 02/06/25 02/07/25 15:00 23:00 07:00 Intake Total 1443.2 ml 518.2 ml 1917.8 ml Output Total 1500 ml 1400 ml Balance 1443.2 ml -981.8 ml 517.8 ml LABS: Laboratory: Test 02/07/25 17:35 02/07/25 16:00 02/07/25 04:59 02/07/25 03:45 Range/Units Whole Blood Glucose 326 H 70-110 MG/DL Urine Color YELLOW YELLOW Urine Appearance CLEAR CLEAR Urine pH 5.5 5.0-8.0 Urine Specific [place] 1.020 1.001-1.031 Urine Protein TRACE H NEGATIVE mg/dL Urine Glucose (UA) NEGATIVE NEGATIVE mg/dL Urine Ketones NEGATIVE NEGATIVE mg/dL Urine Occult Blood TRACE-INTACT H NEGATIVE Urine Nitrate NEGATIVE NEGATIVE Urine Bilirubin NEGATIVE NEGATIVE mg/dL Urine Urobilinogen 0.2 0.2-1.0 mg/dL Urine Leukocyte Esterase NEGATIVE NEGATIVE Sumi/uL Urine RBC None Seen 0-1 /HPF Urine WBC None Seen 0-1 /HPF Urine Bacteria Rare None Seen /HPF Urine Starch Few None Seen /LPF White Blood Count 7.4 4.8-10.8 K/uL Red Blood Count 3.24 L 4.50-6.20 MIL/uL Hemoglobin 9.2 L 14.0-18.0 g/dL Hematocrit 27.7 L 42-54 % Mean Corpuscular Volume 85.5 79-99 fL Mean Corpuscular Hemoglobin 28.4 27.0-33.0 pg Mean Corpuscular Hemoglobin Concent 33.2 32.0-36.0 g/dL Red Cell Distribution Width 14.0 11.0-15.5 % Platelet Count 247 130-400 K/uL Mean Platelet Volume 10.7 H 7.5-10.5 fL Immature Granulocyte % (Auto) 1.5 H 0-1 % Neutrophils (%) (Auto) 96.3 H 40.0-77.0 % Lymphocytes (%) (Auto) 1.3 L 21.0-51.0 % Monocytes (%) (Auto) 0.8 L 3.0-13.0 % Eosinophils (%) (Auto) 0.0 0.0-8.0 % Basophils (%) (Auto) 0.1 0.0-5.0 % Neutrophils # (Auto) 7.1 1.8-7.7 K/uL Lymphocytes # (Auto) 0.1 L 1.0-4.8 K/uL Monocytes # (Auto) 0.1 0.1-1.0 K/uL Eosinophils # (Auto) 0.00 0.00-0.70 K/uL Basophils # (Auto) 0.01 0.00-0.20 K/uL Absolute Immature Granulocyte (auto 0.11 0-1 K/uL Segmented Neutrophils % 99 H 40-70 % Monocytes % (Manual) 1 L 2-9 % Nucleated Red Blood Cells 0.0 0.0-0.19 % Differential Comment MANUAL DIFFERENTIAL White Cell Morphology Comment Platelet Morphology Comment See comments Red Blood Cell Morphology ANISO 1+ Sodium Level 139 136-145 mmol/L Potassium Level 5.5 H 3.5-5.1 mmol/L Chloride Level 107 101-111 mmol/L Carbon Dioxide Level 22 21-32 mmol/L Blood Urea Nitrogen 43 H 7-18 mg/dL Creatinine 1.7 H 0.5-1.3 mg/dL Glomerular Filtration Rate Calc 51 >90 mL/min Random Glucose 297 H 70-105 mg/dL Uric Acid 2.9 2.6-7.2 mg/dL Total Calcium 7.8 L 8.5-10.1 mg/dL Iron Level 72 65-175 mcg/dL Total Iron Binding Capacity 144 L 250-450 mcg/dL Percent Iron Saturation 50.0 H 30-44 % Total Bilirubin 0.7 0.2-1.0 mg/dL Aspartate Amino Transf (AST/SGOT) 54 H 10-37 U/L Alanine Aminotransferase (ALT/SGPT) 37 12-78 U/L Alkaline Phosphatase 129 50-136 U/L Total Protein 6.2 6.0-8.3 g/dL Albumin 1.5 L 3.5-5.0 g/dL Blood Gas Specimen Type Arterial Arterial Blood pH 7.333 L 7.350-7.450 Arterial Blood Partial Pressure CO2 37 35-48 mmHg Arterial Blood Partial Pressure O2 81.9 L 83.0-108.0 mmHg Arterial Blood HCO3 19.1 L 21.0-28.0 mmol/L Arterial Blood Oxygen Saturation 95.5 94.0-98.0 % Arterial Blood Base Excess -6.0 L -2.0-3.0 mmol/L Blood Gas Temperature 37.0 35.5-37.0 CELSIUS Blood Gas Respiration Rate 24.0 min. Blood Gas Vent Mode RR ACVC ROOM AIR FiO2 40.0 % Blood Gas Tidal Volume 500 ml Blood Gas PEEP 10 cm H2O Blood Gas Specimen Comment RN, RAKESH Test 02/06/25 12:50 02/06/25 09:30 02/06/25 09:00 02/06/25 04:38 Range/Units Urine Random Creatinine 59.00 30-135 mg/dL Urine Random Total Protein 191.7 H 0-11.9 mg/dL Urine Random Sodium 66 40-220 mmol/l Urine Random Potassium 22 L 25-125 mmol/L Urine Random Chloride 53 L 110-250 mmol/L Lactic Acid Level 3.3 H 0.8-2.5 mmol/L Procalcitonin 0.17 0.05-0.5 ng/mL Hemoglobin (Blood Gas) 10.7 L 13.5-17.5 g/dL Sodium (Blood Gas) 137 136-145 MMOL/L Bedside Potassium (Blood Gas) 5.4 H 3.4-4.5 MMOL/L Bedside Chloride (Blood Gas) 112 H 98-107 MMOL/L Bedside Glucose (Blood Gas) 282 H 65-95 MG/DL Bedside Ionized Calcium (Blood Gas) 1.22 1.15-1.33 MMOL/L Bedside Lactic Acid (Blood Gas) 3.40 *H 0.36-0.75 MMOL/L B-Type Natriuretic Peptide 84 0-100 pg/mL ASSESSMENT: Acute hypoxic and hypercapnic respiratory failure, s/p intubation. Multifocal pneumonia. Suspected advanced stage HIV, not on anti-retroviral therapy, POA. Suspected Pneumocystis pneumonia. Sepsis. Acute renal failure. Oral candidiasis. Morbid obesity. PLAN: Continue cefepime. Continue doxycycline IV. Continue Bactrim IV. Continue fluconazole IV. Continue GI prophylaxis. Continues on mechanical ventilatory support. Continue critical care support. Case management coordinating HIV medications with [facility]. This case was reviewed and discussed with my supervising physician Dr. Sigala and the above assessment and plan was formulated and agreed upon. ATTESTATION BY PHYSICIAN I have seen and examined the patient. I reviewed the documentation, medical decision making, and treatment plan as noted by the mid-level provider above. I agree with the findings and plan of care. MIRZA SIGALA MD, MIRTA L [facility] Feb 07, 2025 19:22
[2025-02-07] MEDS: Solu-medROL 40MG VIAL IVP SCH (20:13)
[2025-02-08] VITALS (100 sets, daily range): BP systolic 104–158; BP diastolic 43–93; PULSE 87–121; RESP 11–59; TEMP 98.4–99.1; O2SAT 94–99
[2025-02-08 03:59] LABS: ABG BASE EXCESS -2.2 mmol/L (-2.0-3.0); ABG HCO3 22.0 mmol/L (21.0-28.0); ABG PCO2 36 mmHg (35-48); ABG PH 7.400 (7.350-7.450); PO2, ARTERIAL BG 99.6 mmHg (83.0-108.0); TEMPERATURE, CELSIUS BG 37.0 CELSIUS (35.5-37.0); VENT MODE, BG AC (ROOM AIR)
[2025-02-08 05:37] LABS: IMMATURE GRANULOCYTE ABSOLUTE 0.40 K/uL (0-1); NUCLEATED RED BLOOD CELLS 0.2 % (0.0-0.19); PLATELET COUNT (AUTO) 278 K/uL (130-400); RED BLOOD CELL COUNT(AUTO) 3.32 MIL/uL (4.50-6.20); RED CELL DISTRIBUTION WIDTH 13.8 % (11.0-15.5); WHITE BLOOD COUNT (AUTO) 9.6 K/uL (4.8-10.8)
[2025-02-08 06:05] LABS: BAND NEUTROPHILS % (MANUAL) 3 % (0-2); LYMPHOCYTES % (MANUAL) 2 % (22-44); MAN.DIFF COMMENT-IMPRESSION MANUAL DIFFERENTIAL; METAMYELOCYTES % 3 % (0-0); SEGMENTED NEUTROPHILS % 92 % (40-70)
[2025-02-08 06:06] LABS: WBC MORPHOLOGY SMUDGE CELLS 1+
[2025-02-08 06:43] LABS: CREATININE 2.1 mg/dL (0.5-1.3); GLOMERULAR FILTR. RATE CALC 40.0 mL/min (>90); GLUCOSE,RANDOM 237.0 mg/dL (70-105); PHOSPHORUS 3.4 mg/dL (2.5-4.9); SODIUM SERUM 134.0 mmol/L (136-145); TOTAL PROTEIN, SERUM 6.2 g/dL (6.0-8.3); UREA NITROGEN, BLOOD 49.0 mg/dL (7-18)
[2025-02-08 06:58] LABS: ASPARTATE AMINOTRANSFERASE 46.0 U/L (10-37)
[2025-02-08] MEDS: LACTULOSE 20 GM/30 ML UDCUP PO PRN (09:21)
--- NOTE | 2025-02-08 10:07 | PN ---
[facility] PROGRESS NOTE Date Patient Seen: Feb 08, 2025 Time of Visit: 09:57 Supervising Physician: [Dr. Nash ] Primary Care Physician: [Avi LESTER] Outpatient Specialists: [ ] Inpatient Consults: [Dr. Sigala-ID, [facility] team-ICU] PROBLEM LIST: Acute hypoxemic and hypercarbic respiratory failure ARDS Community-acquired pneumonia suspected Pneumocystis Toxic metabolic encephalopathy on admission Acute sepsis on admission without septic shock secondary to community-acquired pneumonia HIV positive newly diagnosed stage IV. Not on anti-retroviral medication CD4 count: 19 Immunocompromise status Suspected TB Obstructive sleep apnea, untreated/undiagnosed Morbid obesity, BMI 33.6 JUAN Volume overload INTERVAL HISTORY: Patient seen and examined all labs have been reviewed. Case discussed with family at bedside. No major events overnight. Patient remains on sedation we will begin weaning off sedation. Patient appears comfortable. Vent settings are down to 40% FiO2 with a PEEP of 5. Patient continues on lasix with output of 900 overnight Patient's chest x-ray continues to improve Sputum cultures positive for Klebsiella pneumoniae and MSSA Plan: Continue on Cefepime, Doxy, Bactrim, and fluconazole per ID. Vent management, start SBTs Follow nephrology recommendations Follow daily chest x-ray and labs Change feeds to Nepro Total critical care time spent 50 minutes, this excludes any procedures performed or any time spent in educational or teaching. REVIEW OF SYSTEMS: Patient on Precedex drip, unable to obtain information from patient. PHYSICAL EXAM: Obese GENERAL: on Vent assistance, encephalopathic and nonverbal HEENT: EOMI, Sclera non icteric, moist mucosa NECK: Supple, no JVD, trachea midline LUNGS: Fine crackles bilaterally. Increased work of breathing, intercostal retractions HEART: Regular rate and rhythm. Normal S1 and S2, without murmurs ABD: Abdomen soft, nontender. Bowel sounds present, obese EXT: No clubbing cyanosis or edema : Dias in situ NEURO: sedated Vital Signs (last 8hr) Date Time Temp Pulse Resp B/P (MAP) Pulse Ox O2 Delivery O2 Flow Rate FiO2 02/08/25 09:21 96 40 02/08/25 06:23 102 28 02/08/25 06:23 102 40 02/08/25 06:22 102 23 133/75 (94) 100 02/08/25 06:07 101 21 135/74 (94) 99 02/08/25 05:52 101 25 134/80 (98) 97 02/08/25 05:37 108 20 141/86 (104) 98 02/08/25 05:22 101 24 131/75 (93) 97 02/08/25 05:07 102 27 139/83 (101) 97 02/08/25 04:53 105 26 141/82 (101) 97 02/08/25 04:37 102 26 150/91 (110) 97 02/08/25 04:22 99 12 142/88 (106) 97 02/08/25 04:08 97 40 02/08/25 04:07 102 38 142/89 (106) 97 02/08/25 04:00 97 Ventilator+ 40 02/08/25 04:00 40 02/08/25 04:00 98.4 02/08/25 03:52 93 16 127/73 (91) 97 02/08/25 03:37 95 21 128/76 (93) 96 02/08/25 03:22 87 26 116/53 (74) 96 02/08/25 03:07 87 23 106/51 (69) 96 02/08/25 02:52 88 20 111/49 (69) 96 02/08/25 02:50 98 28 02/08/25 02:37 89 19 118/55 (76) 96 02/08/25 02:22 88 34 112/52 (72) 96 02/08/25 02:07 88 25 114/53 (73) 98 LABS: Hematology Labs: Test 02/08/25 05:09 02/07/25 04:59 Range/Units White Blood Count 9.6 4.8-10.8 K/uL Red Blood Count 3.32 L 4.50-6.20 MIL/uL Hemoglobin 9.5 L 14.0-18.0 g/dL Hematocrit 28.0 L 42-54 % Mean Corpuscular Volume 84.3 79-99 fL Mean Corpuscular Hemoglobin 28.6 27.0-33.0 pg Mean Corpuscular Hemoglobin Concent 33.9 32.0-36.0 g/dL Red Cell Distribution Width 13.8 11.0-15.5 % Platelet Count 278 130-400 K/uL Mean Platelet Volume 10.6 H 7.5-10.5 fL Immature Granulocyte % (Auto) 4.2 H 0-1 % Neutrophils (%) (Auto) 94.3 H 40.0-77.0 % Lymphocytes (%) (Auto) 0.8 L 21.0-51.0 % Monocytes (%) (Auto) 0.7 L 3.0-13.0 % Eosinophils (%) (Auto) 0.0 0.0-8.0 % Basophils (%) (Auto) 0.0 0.0-5.0 % Neutrophils # (Auto) 9.1 H 1.8-7.7 K/uL Lymphocytes # (Auto) 0.1 L 1.0-4.8 K/uL Monocytes # (Auto) 0.1 0.1-1.0 K/uL Eosinophils # (Auto) 0.00 0.00-0.70 K/uL Basophils # (Auto) 0.00 0.00-0.20 K/uL Absolute Immature Granulocyte (auto 0.40 0-1 K/uL Segmented Neutrophils % 92 H 40-70 % Band Neutrophils % 3 H 0-2 % Lymphocytes % (Manual) 2 L 22-44 % Metamyelocytes % 3 H 0-0 % Nucleated Red Blood Cells 0.2 H 0.0-0.19 % Differential Comment MANUAL DIFFERENTIAL White Cell Morphology Comment SMUDGE CELLS 1+ Platelet Morphology Comment See comments Red Blood Cell Morphology See comments Monocytes % (Manual) 1 L 2-9 % Chemistry Labs: Test 02/08/25 09:33 02/08/25 05:59 02/08/25 05:09 02/07/25 04:59 Range/Units Lactic Acid Level 4.6 H 0.8-2.5 mmol/L Whole Blood Glucose 196 H 70-110 MG/DL Sodium Level 134 L 136-145 mmol/L Potassium Level 4.9 3.5-5.1 mmol/L Chloride Level 100 L 101-111 mmol/L Carbon Dioxide Level 23 21-32 mmol/L Blood Urea Nitrogen 49 H 7-18 mg/dL Creatinine 2.1 H 0.5-1.3 mg/dL Glomerular Filtration Rate Calc 40 >90 mL/min Random Glucose 237 H 70-105 mg/dL Total Calcium 7.5 L 8.5-10.1 mg/dL Phosphorus Level 3.4 2.5-4.9 mg/dL Magnesium Level 2.30 1.80-2.40 mg/dL Ferritin 1935 H 30-400 ng/mL Total Bilirubin 1.0 0.2-1.0 mg/dL Aspartate Amino Transf (AST/SGOT) 46 H 10-37 U/L Alanine Aminotransferase (ALT/SGPT) 23 12-78 U/L Alkaline Phosphatase 133 50-136 U/L Total Protein 6.2 6.0-8.3 g/dL Albumin 1.6 L 3.5-5.0 g/dL Uric Acid 2.9 2.6-7.2 mg/dL Iron Level 72 65-175 mcg/dL Total Iron Binding Capacity 144 L 250-450 mcg/dL Percent Iron Saturation 50.0 H 30-44 % DIAGNOSTICS / RADIOLOGY RESULTS: [ ] NEURO: Minimize central acting medications as possible. Fall Precautions. Well lighted room through the day and minimize interruptions through the night to prevent acute delirium. PULMONARY: Supplemental 02 as needed Titrate Fio2 to keep Spo2 > or = 90% DuoNebs and CPT as needed IS hourly while awake for pulmonary hygiene Out of bed to chair as tolerated VAP Bundle Vent/BIPAP Settings: [ BIPAP setting 12/11 rate of 18 FiO2 60%. ] CARDIOVASCULAR: Follow hemodynamics. Titrate vasopressor to keep MAP >65 or systolic blood pressure >95mmHg DRIPS: [Precedex ] LINES: [PIV] GI & NUTRITION: Continue nutritional support Aspirations precautions Prokinetic agents and laxatives as needed KIDNEYS & ELECTROLYTES: Strict monitoring of intake and output Daily weights Avoid nephrotoxic agents Monitor electrolytes and replace as needed Dias care-prevent CAUTI per nursing Goal urine output of 30mL/hr or 0.5mL/kg/hr Urine output: [ ] Fluid Balance: [ ] ENDOCRINE: Maintain blood glucose between 100-180 at all times. Insulin sliding scale for blood glucose management INFECTIOUS DISEASE: Trend temperature. Lara-culture if febrile. Micro: [ ] Antibiotics: [Vancomycin 01/30- IV Fluconazole: 01/30- IV Sulfa/TMP: 01/30-] HEMATOLOGY & COAGULATION: Monitor H&H. Keep Hgb > 7 Transfuse 1 unit of PRBC for Hgb < 7 Transfuse 1 pack of platelets of platelets < 20, 000 Watch for any signs and symptoms of bleeding SKIN: Pressure ulcer prevention per facility protocol Rehab: PT/OT Prophylaxis: GI: [Pepcid] DVT: [Heparin ] Code Status: Full Resuscitation Disposition: [ICU ] NETO STARR AGACNP Feb 08, 2025 10:07
--- NOTE | 2025-02-08 11:25 | NUR ---
DC PLAN [facility]. CM FAXED INFO TRYING TO CONFIRM RECEIPT AND ASK QUESTIONS ABOUT MEDICATIONS. TRIED TO SPEAK TO GIRISH AT [facility] NO ANSWER. CM LEFT VOICE MAIL FOR A CALL BACK.
--- NOTE | 2025-02-08 11:41 | NUR ---
LAQUITA STOUT FROM [facility] CALLED SAID NOT SURE IF CAN HELP WITH MEDICATION WILL SEE IF [facility] DEPARTMENT CAN HELP ASKED FOR REFERRAL TO BE FAXED TO [phone] Addendum: 02/08/25 at 1145 by KRISTIAN MOORE RN CM Amended: Links added.
[2025-02-08 13:13] LABS: PNEUMOCYSTIS CARINII DFA Negative (Negative)
--- NOTE | 2025-02-08 13:57 | PN ---
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 samples collected for AFB smear. Sputum sample is sent for respiratory culture, we will follow up with the lture results. No acid-fast bacilli in smear from first 2 samples, studies to continue. GI prophylaxis with Pepcid 20 mg IV DVT prophylaxis with heparin 5000 SQ q.12h ATTESTATION BY PHYSICIAN I have seen and examined the patient. I reviewed the documentation, medical decision making, and treatment plan as noted by the resident physician above. I agree with the findings and plan of care. DIANN MITCHELL MD, ADIL SHAH QUADRI MD Feb 08, 2025 13:57
--- NOTE | 2025-02-08 15:07 | PN ---
NEPHROLOGY PROGRESS NOTE Date/Time Patient Seen: Feb 08, 2025 SUBJECTIVE: This is a 44-year-old male with HIV positive newly diagnosed He was brought by EMS to the ED for complaints of shortness of breaths for the past two weeks. He has been in the hospital for several days He continues on antibiotics, including Bactrim, as per ID. He was noted to have elevated BUN/creatinine We are consulted for renal failure Renal function continues to worsen Electrolytes are stable UA noted Renal ultrasound showed partially distended bladder with no hydronephrosis or renal calculus He continues on Lasix, urine output was noted Tolerating tube feedings He was seen in the ICU, Continues to be intubated and sedated No family at the bedside Prognosis remains guarded REVIEW OF SYSTEMS: Difficult to obtain given status of the patient who remains intubated mechanically ventilated Vital Signs (last 8hr) Date Time Temp Pulse Resp B/P (MAP) Pulse Ox O2 Delivery O2 Flow Rate FiO2 02/08/25 14:20 108 40 02/08/25 13:58 105 23 02/08/25 13:45 106 19 143/77 (99) 99 02/08/25 13:30 100 18 137/70 (92) 99 02/08/25 13:15 98 17 133/65 (87) 99 02/08/25 13:00 101 17 139/73 (95) 97 02/08/25 12:45 108 20 142/74 (96) 98 02/08/25 12:30 108 20 142/74 (96) 98 02/08/25 12:17 40 02/08/25 12:15 102 40 02/08/25 12:00 99.1 Ventilator 40 02/08/25 12:00 107 17 147/79 (101) 99 02/08/25 11:45 106 17 128/69 (88) 98 02/08/25 11:30 107 18 135/66 (89) 98 02/08/25 11:15 113 16 135/68 (90) 97 02/08/25 11:00 116 20 141/73 (95) 97 02/08/25 10:45 119 17 148/78 (101) 99 02/08/25 10:30 118 19 147/83 (104) 98 02/08/25 10:15 120 18 153/86 (108) 98 02/08/25 10:00 121 26 158/93 (114) 98 02/08/25 09:58 120 40 02/08/25 09:45 121 37 150/81 (104) 98 02/08/25 09:34 96 27 02/08/25 09:30 108 11 139/85 (103) 100 02/08/25 09:21 96 40 02/08/25 09:15 105 39 117/57 (77) 99 02/08/25 09:00 94 27 107/43 (64) 97 02/08/25 08:45 97 23 108/52 (70) 98 02/08/25 08:30 101 13 131/57 (81) 98 02/08/25 08:17 40 02/08/25 08:15 97 17 108/56 (73) 98 02/08/25 08:00 98 59 106/46 (66) 98 02/08/25 08:00 98.8 Ventilator 40 02/08/25 07:45 100 19 112/57 (75) 98 02/08/25 07:30 102 39 115/57 (76) 98 02/08/25 07:15 103 23 125/67 (86) 98 PHYSICAL EXAM: General: acutely ill, sedated, intubated, and mechanically ventilated HEENT: head is atraumatic, pupils equal and reactive, ET tube in place Neck: supple, no masses, no lymphadenopathy, no thyromegaly, no JVD Lungs: decreased breath sounds bilaterally, symmetrical chest movement Cardio: regular rate, S1 and S2 normal, no rub or gallop Abdomen: soft, non tender, no distension, no organomegaly Extremities: trace edema bilateral lower extremities, no cyanosis or clubbing Skin: no rashes or suspicious lesions Neuro: sedated Vital Signs (last 8hr) Date Time Temp Pulse Resp B/P (MAP) Pulse Ox O2 Delivery O2 Flow Rate FiO2 02/08/25 14:20 108 40 02/08/25 13:58 105 23 02/08/25 13:45 106 19 143/77 (99) 99 02/08/25 13:30 100 18 137/70 (92) 99 02/08/25 13:15 98 17 133/65 (87) 99 02/08/25 13:00 101 17 139/73 (95) 97 02/08/25 12:45 108 20 142/74 (96) 98 02/08/25 12:30 108 20 142/74 (96) 98 02/08/25 12:17 40 02/08/25 12:15 102 40 02/08/25 12:00 99.1 Ventilator 40 02/08/25 12:00 107 17 147/79 (101) 99 02/08/25 11:45 106 17 128/69 (88) 98 02/08/25 11:30 107 18 135/66 (89) 98 02/08/25 11:15 113 16 135/68 (90) 97 02/08/25 11:00 116 20 141/73 (95) 97 02/08/25 10:45 119 17 148/78 (101) 99 02/08/25 10:30 118 19 147/83 (104) 98 02/08/25 10:15 120 18 153/86 (108) 98 02/08/25 10:00 121 26 158/93 (114) 98 02/08/25 09:58 120 40 02/08/25 09:45 121 37 150/81 (104) 98 02/08/25 09:34 96 27 02/08/25 09:30 108 11 139/85 (103) 100 02/08/25 09:21 96 40 02/08/25 09:15 105 39 117/57 (77) 99 02/08/25 09:00 94 27 107/43 (64) 97 02/08/25 08:45 97 23 108/52 (70) 98 02/08/25 08:30 101 13 131/57 (81) 98 02/08/25 08:17 40 02/08/25 08:15 97 17 108/56 (73) 98 02/08/25 08:00 98 59 106/46 (66) 98 02/08/25 08:00 98.8 Ventilator 40 02/08/25 07:45 100 19 112/57 (75) 98 02/08/25 07:30 102 39 115/57 (76) 98 02/08/25 07:15 103 23 125/67 (86) 98 LABORATORY: [ ] Hematology Labs: Test 02/08/25 05:09 02/07/25 04:59 Range/Units White Blood Count 9.6 4.8-10.8 K/uL Red Blood Count 3.32 L 4.50-6.20 MIL/uL Hemoglobin 9.5 L 14.0-18.0 g/dL Hematocrit 28.0 L 42-54 % Mean Corpuscular Volume 84.3 79-99 fL Mean Corpuscular Hemoglobin 28.6 27.0-33.0 pg Mean Corpuscular Hemoglobin Concent 33.9 32.0-36.0 g/dL Red Cell Distribution Width 13.8 11.0-15.5 % Platelet Count 278 130-400 K/uL Mean Platelet Volume 10.6 H 7.5-10.5 fL Immature Granulocyte % (Auto) 4.2 H 0-1 % Neutrophils (%) (Auto) 94.3 H 40.0-77.0 % Lymphocytes (%) (Auto) 0.8 L 21.0-51.0 % Monocytes (%) (Auto) 0.7 L 3.0-13.0 % Eosinophils (%) (Auto) 0.0 0.0-8.0 % Basophils (%) (Auto) 0.0 0.0-5.0 % Neutrophils # (Auto) 9.1 H 1.8-7.7 K/uL Lymphocytes # (Auto) 0.1 L 1.0-4.8 K/uL Monocytes # (Auto) 0.1 0.1-1.0 K/uL Eosinophils # (Auto) 0.00 0.00-0.70 K/uL Basophils # (Auto) 0.00 0.00-0.20 K/uL Absolute Immature Granulocyte (auto 0.40 0-1 K/uL Segmented Neutrophils % 92 H 40-70 % Band Neutrophils % 3 H 0-2 % Lymphocytes % (Manual) 2 L 22-44 % Metamyelocytes % 3 H 0-0 % Nucleated Red Blood Cells 0.2 H 0.0-0.19 % Differential Comment MANUAL DIFFERENTIAL White Cell Morphology Comment SMUDGE CELLS 1+ Platelet Morphology Comment See comments Red Blood Cell Morphology See comments Monocytes % (Manual) 1 L 2-9 % Chemistry Labs: Test 02/08/25 13:03 02/08/25 12:07 02/08/25 05:09 02/07/25 04:59 Range/Units Lactic Acid Level 4.7 H 0.8-2.5 mmol/L Whole Blood Glucose 190 H 70-110 MG/DL Sodium Level 134 L 136-145 mmol/L Potassium Level 4.9 3.5-5.1 mmol/L Chloride Level 100 L 101-111 mmol/L Carbon Dioxide Level 23 21-32 mmol/L Blood Urea Nitrogen 49 H 7-18 mg/dL Creatinine 2.1 H 0.5-1.3 mg/dL Glomerular Filtration Rate Calc 40 >90 mL/min Random Glucose 237 H 70-105 mg/dL Total Calcium 7.5 L 8.5-10.1 mg/dL Phosphorus Level 3.4 2.5-4.9 mg/dL Magnesium Level 2.30 1.80-2.40 mg/dL Ferritin 1935 H 30-400 ng/mL Total Bilirubin 1.0 0.2-1.0 mg/dL Aspartate Amino Transf (AST/SGOT) 46 H 10-37 U/L Alanine Aminotransferase (ALT/SGPT) 23 12-78 U/L Alkaline Phosphatase 133 50-136 U/L Total Protein 6.2 6.0-8.3 g/dL Albumin 1.6 L 3.5-5.0 g/dL Uric Acid 2.9 2.6-7.2 mg/dL Iron Level 72 65-175 mcg/dL Total Iron Binding Capacity 144 L 250-450 mcg/dL Percent Iron Saturation 50.0 H 30-44 % DIAGNOSTICS / RADIOLOGY: [place] [address] IMAGING REPORT Signed PATIENT: CHARY HERNANDEZ MR#: [id number] : 1980 SEX: M AGE: 44 LOCATION: [facility] ORDER 2300 STATUS: ADM IN REPORT#: [id number] SERVICE 0600 REASON: pp ORDERING PHYSICIAN: BIANCA WICK PAC PROCEDURE: CXR1VW - CHEST 1VW EXAM: CR Chest, 2 View. CLINICAL HISTORY: Intubated. COMPARISON: 02/06/2025 FINDINGS: The endotracheal tube is seen with its tip terminating about 6.7 cm above the catina. The nasogastric tube terminates in the proximal stomach. LUNGS: Interval improvement in basilar predominant bilateral diffuse airspace disease is present. PLEURAL SPACES: No definite pleural effusion or pneumothorax. MEDIASTINUM: Cardiac size is stable. BONES: No aggressive appearing osseous lesion seen. IMPRESSION: 1. Interval improvement in bilateral basilar predominant airspace disease. 2. Endotracheal tube tip positioned 6.7 cm above catina. 3. The nasogastric tube terminates in the proximal stomach. /[place] DICTATED BY: LARISSA LEMONS Jr., MD DATE: 02/07/251748 ELECTRONICALLY SIGNED BY: LARISSA LEMONS Jr., MD DATE: 02/07/251748 PATIENT: CHARY HERNANDEZ MR#: [id number] : 1980 SEX: M AGE: 44 LOCATION: [facility] ORDER 1341 STATUS: ADM IN REPORT#: [id number] SERVICE 1337 REASON: JUAN ORDERING PHYSICIAN: DARBY PORRAS MD PROCEDURE: RENAL - US RENAL SONOGRAM EXAMINATION: ULTRASOUND OF THE RETROPERITONEUM. CLINICAL HISTORY: JUAN. COMPARISON: None. TECHNIQUE: Real-time grayscale ultrasound images of the kidneys. FINDINGS: The kidneys are normal in caliber, the right kidney measures 12.9 x 6.5 x 6.5 cm and the left kidney measures 11.0 x 5.6 x 5.5 cm in its craniocaudal, AP, and transverse dimensions respectively. There is normal renal cortical thickness, and cortical echogenicity. There is no renal calculus or hydronephrosis. The urinary bladder is partially distended with mild wall thickening (0.6 cm). There are no calculi in the urinary bladder. IMPRESSION: Urinary bladder wall thickening of concern for cystitis. /[place] DICTATED BY: LARISSA LEMONS Jr., MD DATE: 02/07/25716 ELECTRONICALLY SIGNED BY: LARISSA LEMONS Jr., MD DATE: 02/07/25716 PATIENT: CHARY HERNANDEZ MR#: [id number] : 1980 SEX: M AGE: 44 LOCATION: [facility] ORDER 1118 STATUS: ADM IN REPORT#: [id number] SERVICE 1145 REASON: post intubation ORDERING PHYSICIAN: COMPA PATRICK MD PROCEDURE: CXR1VW - CHEST 1VW EXAM: CR Chest, 2 View. CLINICAL HISTORY: post intubation COMPARISON: Radiograph from February 04, 2025 FINDINGS: Endotracheal tubes in satisfactory position, tip terminating 3.5 cm above the catina. Right PICC terminates overlying the SVC. Bibasilar airspace disease may reflect an infectious process. No pleural effusion or pneumothorax. Heart size is stable. Pulmonary vessels are within normal limits. IMPRESSION: 1. Endotracheal tube and right PICC line in satisfactory positions. 2. Bibasilar airspace disease, possibly infectious. /[place] DICTATED BY: LARISSA LEMONS Jr., MD DATE: 02/05/251408 ELECTRONICALLY SIGNED BY: LARISSA LEMONS Jr., MD DATE: 02/05/251408 PATIENT: CHARY HERNANDEZ MR#: [id number] : 1980 SEX: M AGE: 44 LOCATION: [facility] ORDER 9 STATUS: ADM IN REPORT#: [id number] SERVICE 8 REASON: ngt placement for TF ORDERING PHYSICIAN: ISAC MATHEW MD PROCEDURE: ABD 1VW - ABD 1VW EXAM: CR Abdomen, 1 View. CLINICAL HISTORY: ngt placement for TF COMPARISON: None provided. FINDINGS: BOWEL: The transverse colon is filled with gas and fecal content could be due to constipation Nasogastric tubes projecting below lthe eft hemidiaphragm in the stomach PERITONEUM/SOFT TISSUES: No free air evident. No pathologic appearing calcification. BONES: No acute osseous abnormality. IMPRESSION: The nasogastric tube is projected below the left hemidiaphragm over the stomach, tip is located in the body portion of the stomach Gas and fecal-loaded transverse colon consistent with constipation /[place] DICTATED BY: LARISSA LEMONS Jr., MD DATE: 02/03/251138 ELECTRONICALLY SIGNED BY: LARISSA LEMONS Jr., MD DATE: 02/03/251138 PATIENT: CHARY HERNANDEZ MR#: [id number] : 1980 SEX: M AGE: 44 LOCATION: [facility] ORDER 1 STATUS: ADM IN REPORT#: [id number] SERVICE REASON: hypoxia ORDERING PHYSICIAN: BIANCA GARCIA PROCEDURE: ECHO CMP - ECHO 2-D COMPLETE APPROVED REPORT EXAM: Two-dimensional and M-mode echocardiogram with Doppler and color Doppler. INDICATION ICD: R06.02 Shortness of breath 2D Dimensions RVDd 4.5 cm LVEF(%) 58.7 (>50%) LVED Vol(simp.) 152.0 mL IVSd 1.2 (0.7-1.1cm) FS(%) 32 % LVES Vol(simp.) 70.0 mL LVDd 6.1 (3.8-5.6cm) LA (2D) 4.0 (1.6-4.0cm) LVEF(%, simp.) 54 % PWd 0.8 (0.7-1.1cm) Ao Root(2D) 3.4 (2.0-3.7cm) LA ESV INDEX (BP) 26.38 mL/m2 IVSs 1.5 cm LVOT diam 2.7 (1.8-2.4cm) LVDs 4.1 (2.5-4.0cm) IVC diam 2.7 cm PWs 1.1 cm Deformation Strain Apical 4 -16.1 % Apical 2 -16.4 % Apical 3 -17.4 % Global Strain -16.6 % M-Mode Dimensions EPSS 0.3 cm LA (MM) 4.2 (1.6-4.0cm) Ao Root(MM) 4.0 (2.0-3.7cm) Aortic Valve AoV Vmax 1.4 m/s Ao Peak GR 7.3 mmHg LVOT Vmax 1.2 m/s AoV VTI 0.3 m Ao Mean GR 4.7 mmHg LVOT VTI 0.23 m MINH (VMAX) 5.28 cm2 MINH (VTI) 5.3 cm2 Mitral Valve MV E Vmax 88.4 cm/s DECEL Time 146 ms MV A Vmax 76.4 cm/s P 1/2 T 41 ms E/A ratio 1.2 MVA (PHT) 5.4 cm2 TDI E/E' Medial 10.2 E/E' Lateral 10.5 Medial E' Peak V 8.64 cm/s Lateral E' Peak V 8.43 cm/s Pulmonary Valve PV Vmax 0.8 m/s PV Peak GR 2.3 mmHg Tricuspid Valve TR Vmax 1.1 m/s RAP (EST) 8 mmHg RVSP 12.9 mmHg TR Peak GR 4.9 mmHg Left Ventricle The left ventricle is normal size. GLS -16.0% There is normal LV segmental wall motion. There is mild left ventricular wall thickness. LVEF is 55%. The LV diastolic function was unable to be assessed due to atrial arrhythmia. Right Ventricle The right ventricle is normal size. The right ventricular systolic function is normal. Atria The left atrium size is normal. The right atrium size is normal. Aortic Valve The aortic valve is normal in structure. No aortic regurgitation is present. There is no aortic valvular stenosis. Mitral Valve The mitral valve is normal in structure. There is trace of mitral valve regurgitation noted. There is no mitral valve stenosis. Tricuspid Valve The tricuspid valve is normal in structure. There is no tricuspid valve regurgitation noted. Pulmonic Valve The pulmonary valve is normal in structure. There is mild pulmonic valvular regurgitation. Great Vessels The aortic root is normal in size. IVC is dilated and collapses >50% with inspiration. Pericardium There is no pericardial effusion. Other Information Quality : Technically diffcult study due to body habitus Conclusion LVEF is 55%. DICTATED BY: CAROL GALLAGHER MD DATE: 01/31/25844 ELECTRONICALLY SIGNED BY: CAROL GALLAGHER MD DATE: 01/31/252052 PATIENT: CHARY HERNANDEZ MR#: [id number] : 1980 SEX: M AGE: 44 LOCATION: [facility] ORDER STATUS: ADM IN [facility] REPORT#: [id number] SERVICE REASON: r/o DVT ORDERING PHYSICIAN: BIANCA GARCIA PROCEDURE: VENOUS GRACIE - US VENOUS DOPPLER BILATERAL EXAM: US for Deep Venous Thrombosis, bilateral Lower Extremity. CLINICAL HISTORY: Rule out deep venous thrombosis. TECHNIQUE: Real-time ultrasound scan of the veins of the bilateral lower extremity with color Doppler flow, spectral waveform analysis and compression. COMPARISON: None provided. FINDINGS: DEEP VEINS: The common femoral, superficial femoral, and popliteal veins are echolucent and compressible. There is normal color Doppler flow throughout. The visualized calf veins appear patent. SOFT TISSUES: No popliteal fossa cyst or other abnormalities. IMPRESSION: No deep venous thrombosis is evident on bilateral lower extremity examination. /[place] DICTATED BY: LARISSA LEMONS Jr., MD DATE: 01/31/25400 ELECTRONICALLY SIGNED BY: LARISSA LEMONS Jr., MD DATE: 01/31/25400 PATIENT: CHARY HERNANDEZ MR#: [id number] : 1980 SEX: M AGE: 44 LOCATION: [facility] ORDER STATUS: ADM IN REPORT#: [id number] SERVICE REASON: r/o P.E. ORDERING PHYSICIAN: BIANCA GARCIA PROCEDURE: CHES PE - CT CHEST PE PROTOCOL WWO CONT EXAMINATION: CT Chest, with intravenous contrast CLINICAL HISTORY: Patient presents to rule out pulmonary embolism. TECHNIQUE: Axial computed tomography images of the chest, with intravenous contrast. Multiplanar reformations were generated and reviewed. CONTRAST: With intravenous contrast. COMPARISON: None provided. FINDINGS: CHEST: LUNGS: The lungs demonstrate extensive diffuse consolidation and airspace opacities and ground-glassing throughout the bilateral lungs, predominantly involving the lower lobes and perihilar regions. No pulmonary mass. PLEURAL SPACES: No pneumothorax or pleural effusion. CARDIOVASCULAR: Cardiomegaly is present. No significant pericardial effusion. The main pulmonary artery measures 3.2 cm. The right pulmonary artery measures 2 cm. The left pulmonary artery measures 2.2 cm. The pulmonary arteries show no evidence of filling defects. Normal caliber thoracic aorta. MEDIASTINUM AND SILVINO: No mediastinal or hilar lymphadenopathy. ABDOMEN : Hepatosplenomegaly BONES: No acute or aggressive osseous abnormality. IMPRESSION: No acute pulmonary embolism. Extensive diffuse bilateral pulmonary airspace opacities, predominantly in the lower lobes and perihilar regions, consistent with pulmonary edema. Cardiomegaly with mild pulmonary arterial hypertension. Hepatosplenomegaly. /[place] DICTATED BY: LARISSA LEMONS Jr., MD DATE: 01/31/25803 ELECTRONICALLY SIGNED BY: LARISSA LEMONS Jr., MD DATE: 01/31/25803 ASSESSMENT: Hyperkalemia Acute renal failure Acute hypoxemic and hypercarbic respiratory failure now with worsening respiratory distress ARDS Community-acquired pneumonia suspected Pneumocystis Toxic metabolic encephalopathy on admission Acute sepsis on admission without septic shock secondary to community-acquired pneumonia HIV positive newly diagnosed stage IV. Not on anti-retroviral medication CD4 count: 19 Immunocompromise status Suspected TB Obstructive sleep apnea, untreated/undiagnosed Morbid obesity, BMI 33.6 Volume overload PLAN: Labs, diagnostic, radiologic exams reviewed and interpreted by myself and supervising physician. We have reviewed external records in detail There is no need for emergent renal replacement therapy at this time. Continue with close monitoring of electrolytes and renal function Require close monitoring of renal function and electrolytes Order CBC, CMP, and electrolytes in am Continue with antibiotics as per ID Continue mechanical ventilation and sedation IV pressors as needed Monitor blood pressure adjust medication doses as needed Avoid hypotensive episodes May use Dilaudid 0.5 mg IV every 6 hours as needed for severe pain Monitor blood sugars Strict intake, output, and daily weight should be monitored Please renally adjust medications Avoid nephrotoxic and nonsteroidal drugs Avoid contrast if possible Will continue to monitor renal function, anemia, electrolytes Treatment plan discussed with patient Questions were answered We have discussed with the other team physicians in detail about the care plan We will continue to monitor the patient closely Total critical care time spent with patient, nursing staff, critical care team over 35 minutes ATTESTATION BY PHYSICIAN I have seen and examined the patient. I reviewed the documentation, medical decision making, and treatment plan as noted by the mid-level provider above. I agree with the findings and plan of care. DARBY PORRAS MD, [facility] Feb 08, 2025 15:07
[2025-02-08 15:23] LABS: ABG BASE EXCESS -3.7 mmol/L (-2.0-3.0); ABG HCO3 21.3 mmol/L (21.0-28.0); ABG OXYGEN SATURATION 96.6 % (94.0-98.0); ABG PCO2 38 mmHg (35-48); ABG PH 7.367 (7.350-7.450); CARBON MONOXIDE 0.3 % (0.5-1.5); CPAP, BG 5 cm H2O; PO2, ARTERIAL BG 97.7 mmHg (83.0-108.0); TEMPERATURE, CELSIUS BG 37.0 CELSIUS (35.5-37.0); VENT MODE, BG CPAP PS 10 (ROOM AIR)
--- NOTE | 2025-02-08 16:06 | NUR ---
[facility] ICU Skin Assessment: Patient assessed by wound healing team. Patient with no wounds or skin breakdown noted. Assessment and recommendations provided to primary nurse. Education provided.
--- NOTE | 2025-02-08 17:19 | PN ---
INFECTIOUS DISEASE PROGRESS NOTE Date of Service: Feb 08, 2025 SUBJECTIVE: Patient was seen at bedside in room 217. Patient continues intubated and on Precedex, patient however was able to open eyes when his name was called. Case management still coordinating with [facility] for HIV medication management. Renal function declining with a BUN of 49 and creatinine of 2.1. No nausea or vomiting reported. We will continue on cefepime, Bactrim IV, doxycycline IV and fluconazole IV. PHYSICAL EXAM EYES: Anicteric. Pupils equal and reactive. HENT: Dry Oral mucosa. Oral thrush. NGT. NECK: Supple, no JVD or thyromegaly. LUNGS: On mechanical ventilatory support. CARDIOVASCULAR: S1, S2 regular. No murmur heard. ABDOMEN: Soft, non tender, bowel sounds present, no organomegaly. CENTRAL NERVOUS SYSTEM: Intubated. SKIN: Rash on abdomen and lower extremities. LYMPHATICS: No peripheral lymphadenopathy MUSCULOSKELETAL: No joint swelling, erythema or tenderness. EXTREMITIES: No cyanosis or clubbing. Weakness. BACK: No deformity, no pressure ulcer. GENITOURINARY: No dysuria or hematuria. Dias catheter. Vital Sign (Last 12 Hours) 02/08/25 02/08/25 02/08/25 02/08/25 05:22 05:37 05:52 06:07 Pulse 101 108 101 101 Resp 24 20 25 21 B/P (MAP) 131/75 (93) 141/86 (104) 134/80 (98) 135/74 (94) Pulse Ox 97 98 97 99 02/08/25 02/08/25 02/08/25 02/08/25 06:22 06:23 06:23 07:15 Pulse 102 102 102 103 Resp 23 28 23 B/P (MAP) 133/75 (94) 125/67 (86) Pulse Ox 100 98 FiO2 40 02/08/25 02/08/25 02/08/25 02/08/25 07:30 07:45 08:00 08:00 Temp 98.8 Pulse 102 100 Resp 39 19 B/P (MAP) 115/57 (76) 112/57 (75) Pulse Ox 98 98 99 O2 Delivery Ventilator Ventilator+ FiO2 40 40 02/08/25 02/08/25 02/08/25 02/08/25 08:00 08:15 08:17 08:30 Pulse 98 97 101 Resp 59 17 13 B/P (MAP) 106/46 (66) 108/56 (73) 131/57 (81) Pulse Ox 98 98 98 FiO2 40 02/08/25 02/08/25 02/08/25 02/08/25 08:45 09:00 09:15 09:21 Pulse 97 94 105 96 Resp 23 27 39 B/P (MAP) 108/52 (70) 107/43 (64) 117/57 (77) Pulse Ox 98 97 99 FiO2 40 02/08/25 02/08/25 02/08/25 02/08/25 09:30 09:34 09:45 09:58 Pulse 108 96 121 120 Resp 11 27 37 B/P (MAP) 139/85 (103) 150/81 (104) Pulse Ox 100 98 FiO2 40 02/08/25 02/08/25 02/08/25 02/08/25 10:00 10:15 10:30 10:45 Pulse 121 120 118 119 Resp 26 18 19 17 B/P (MAP) 158/93 (114) 153/86 (108) 147/83 (104) 148/78 (101) Pulse Ox 98 98 98 99 02/08/25 02/08/25 02/08/25 02/08/25 11:00 11:15 11:30 11:45 Pulse 116 113 107 106 Resp 20 16 18 17 B/P (MAP) 141/73 (95) 135/68 (90) 135/66 (89) 128/69 (88) Pulse Ox 97 97 98 98 02/08/25 02/08/25 02/08/25 02/08/25 12:00 12:00 12:00 12:15 Temp 99.1 Pulse 107 102 Resp 17 B/P (MAP) 147/79 (101) Pulse Ox 99 98 O2 Delivery Ventilator Ventilator+ FiO2 40 40 40 02/08/25 02/08/25 02/08/25 02/08/25 12:17 12:30 12:45 13:00 Pulse 108 108 101 Resp 20 20 17 B/P (MAP) 142/74 (96) 142/74 (96) 139/73 (95) Pulse Ox 98 98 97 FiO2 40 02/08/25 02/08/25 02/08/25 02/08/25 13:15 13:30 13:45 13:58 Pulse 98 100 106 105 Resp 17 18 19 23 B/P (MAP) 133/65 (87) 137/70 (92) 143/77 (99) Pulse Ox 99 99 99 02/08/25 02/08/25 02/08/25 02/08/25 14:00 14:15 14:20 14:30 Pulse 105 106 108 106 Resp 17 18 19 B/P (MAP) 140/72 (94) 140/76 (97) 136/66 (89) Pulse Ox 100 98 100 FiO2 40 02/08/25 02/08/25 02/08/25 02/08/25 14:45 15:00 15:15 15:30 Pulse 109 110 115 111 Resp 20 23 23 17 B/P (MAP) 149/84 (105) 138/73 (94) 149/76 (100) 139/73 (95) Pulse Ox 99 98 98 98 02/08/25 02/08/25 02/08/25 02/08/25 15:45 16:00 16:00 16:17 Temp 99.0 Pulse 111 Resp 17 B/P (MAP) 136/66 (89) Pulse Ox 98 99 O2 Delivery Ventilator Ventilator+ FiO2 40 40 40 Intake & Output (last 24hrs) 02/07/25 02/07/25 02/08/25 15:00 23:00 07:00 Intake Total 1593.2 ml 1373.2 ml 1828.2 ml Output Total 2000 ml 1000 ml 900 ml Balance -406.8 ml 373.2 ml 928.2 ml LABS: Laboratory: Test 02/08/25 15:22 02/08/25 13:03 02/08/25 12:07 02/08/25 05:09 Range/Units Blood Gas Specimen Type Arterial Arterial Blood pH 7.367 7.350-7.450 Arterial Blood Partial Pressure CO2 38 35-48 mmHg Arterial Blood Partial Pressure O2 97.7 83.0-108.0 mmHg Arterial Blood HCO3 21.3 21.0-28.0 mmol/L Arterial Blood Oxygen Saturation 96.6 94.0-98.0 % Arterial Blood Base Excess -3.7 L -2.0-3.0 mmol/L Hemoglobin (Blood Gas) 10.3 L 13.5-17.5 g/dL Sodium (Blood Gas) 136 136-145 MMOL/L Bedside Potassium (Blood Gas) 5.0 H 3.4-4.5 MMOL/L Bedside Chloride (Blood Gas) 103 98-107 MMOL/L Bedside Glucose (Blood Gas) 223 H 65-95 MG/DL Bedside Ionized Calcium (Blood Gas) 1.15 1.15-1.33 MMOL/L Bedside Lactic Acid (Blood Gas) 4.74 *H 0.36-0.75 MMOL/L Blood Gas Temperature 37.0 35.5-37.0 CELSIUS Blood Gas Vent Mode CPAP PS 10 ROOM AIR FiO2 40.0 % Blood Gas CPAP 5 cm H2O Blood Gas Specimen Comment RR BOYD Lactic Acid Level 4.7 H 0.8-2.5 mmol/L Whole Blood Glucose 190 H 70-110 MG/DL White Blood Count 9.6 4.8-10.8 K/uL Red Blood Count 3.32 L 4.50-6.20 MIL/uL Hemoglobin 9.5 L 14.0-18.0 g/dL Hematocrit 28.0 L 42-54 % Mean Corpuscular Volume 84.3 79-99 fL Mean Corpuscular Hemoglobin 28.6 27.0-33.0 pg Mean Corpuscular Hemoglobin Concent 33.9 32.0-36.0 g/dL Red Cell Distribution Width 13.8 11.0-15.5 % Platelet Count 278 130-400 K/uL Mean Platelet Volume 10.6 H 7.5-10.5 fL Immature Granulocyte % (Auto) 4.2 H 0-1 % Neutrophils (%) (Auto) 94.3 H 40.0-77.0 % Lymphocytes (%) (Auto) 0.8 L 21.0-51.0 % Monocytes (%) (Auto) 0.7 L 3.0-13.0 % Eosinophils (%) (Auto) 0.0 0.0-8.0 % Basophils (%) (Auto) 0.0 0.0-5.0 % Neutrophils # (Auto) 9.1 H 1.8-7.7 K/uL Lymphocytes # (Auto) 0.1 L 1.0-4.8 K/uL Monocytes # (Auto) 0.1 0.1-1.0 K/uL Eosinophils # (Auto) 0.00 0.00-0.70 K/uL Basophils # (Auto) 0.00 0.00-0.20 K/uL Absolute Immature Granulocyte (auto 0.40 0-1 K/uL Segmented Neutrophils % 92 H 40-70 % Band Neutrophils % 3 H 0-2 % Lymphocytes % (Manual) 2 L 22-44 % Metamyelocytes % 3 H 0-0 % Nucleated Red Blood Cells 0.2 H 0.0-0.19 % Differential Comment MANUAL DIFFERENTIAL White Cell Morphology Comment SMUDGE CELLS 1+ Platelet Morphology Comment See comments Red Blood Cell Morphology See comments Sodium Level 134 L 136-145 mmol/L Potassium Level 4.9 3.5-5.1 mmol/L Chloride Level 100 L 101-111 mmol/L Carbon Dioxide Level 23 21-32 mmol/L Blood Urea Nitrogen 49 H 7-18 mg/dL Creatinine 2.1 H 0.5-1.3 mg/dL Glomerular Filtration Rate Calc 40 >90 mL/min Random Glucose 237 H 70-105 mg/dL Total Calcium 7.5 L 8.5-10.1 mg/dL Phosphorus Level 3.4 2.5-4.9 mg/dL Magnesium Level 2.30 1.80-2.40 mg/dL Ferritin 1935 H 30-400 ng/mL Total Bilirubin 1.0 0.2-1.0 mg/dL Aspartate Amino Transf (AST/SGOT) 46 H 10-37 U/L Alanine Aminotransferase (ALT/SGPT) 23 12-78 U/L Alkaline Phosphatase 133 50-136 U/L Total Protein 6.2 6.0-8.3 g/dL Albumin 1.6 L 3.5-5.0 g/dL Test 02/08/25 03:57 02/07/25 16:00 02/07/25 04:59 Range/Units Blood Gas Respiration Rate 20.0 min. Blood Gas Tidal Volume 500 ml Blood Gas PEEP 5 cm H2O Urine Color YELLOW YELLOW Urine Appearance CLEAR CLEAR Urine pH 5.5 5.0-8.0 Urine Specific [place] 1.020 1.001-1.031 Urine Protein TRACE H NEGATIVE mg/dL Urine Glucose (UA) NEGATIVE NEGATIVE mg/dL Urine Ketones NEGATIVE NEGATIVE mg/dL Urine Occult Blood TRACE-INTACT H NEGATIVE Urine Nitrate NEGATIVE NEGATIVE Urine Bilirubin NEGATIVE NEGATIVE mg/dL Urine Urobilinogen 0.2 0.2-1.0 mg/dL Urine Leukocyte Esterase NEGATIVE NEGATIVE [place]i/uL Urine RBC None Seen 0-1 /HPF Urine WBC None Seen 0-1 /HPF Urine Bacteria Rare None Seen /HPF Urine Starch Few None Seen /LPF Monocytes % (Manual) 1 L 2-9 % Uric Acid 2.9 2.6-7.2 mg/dL Iron Level 72 65-175 mcg/dL Total Iron Binding Capacity 144 L 250-450 mcg/dL Percent Iron Saturation 50.0 H 30-44 % ASSESSMENT: Acute hypoxic and hypercapnic respiratory failure, s/p intubation. Multifocal pneumonia. Suspected advanced stage HIV, not on anti-retroviral therapy, POA. Suspected Pneumocystis pneumonia. Sepsis. Acute renal failure. Oral candidiasis. Morbid obesity. PLAN: Continue cefepime. Continue doxycycline IV. Continue Bactrim IV. Continue fluconazole IV. Continue GI prophylaxis. Continues on mechanical ventilatory support. Continue critical care support. Case management coordinating with [facility] for HIV medication management. This case was reviewed and discussed with my supervising physician Dr. Sigala and the above assessment and plan was formulated and agreed upon. ATTESTATION BY PHYSICIAN I have seen and examined the patient. I reviewed the documentation, medical decision making, and treatment plan as noted by the mid-level provider above. I agree with the findings and plan of care. MIRZA SIGALA MD, [facility] Feb 08, 2025 17:19
--- NOTE | 2025-02-08 19:41 | NUR ---
Patient tolerated 8 hours on CPAP mode
[2025-02-09] VITALS (96 sets, daily range): BP systolic 92–156; BP diastolic 47–88; PULSE 86–132; RESP 19–64; TEMP 98.2–101.5; O2SAT 97–99
[2025-02-09 04:55] LABS: IMMATURE GRANULOCYTE ABSOLUTE 0.34 K/uL (0-1); NUCLEATED RED BLOOD CELLS 0.4 % (0.0-0.19); PLATELET COUNT (AUTO) 223 K/uL (130-400); RED BLOOD CELL COUNT(AUTO) 2.98 MIL/uL (4.50-6.20); RED CELL DISTRIBUTION WIDTH 13.4 % (11.0-15.5); WHITE BLOOD COUNT (AUTO) 8.4 K/uL (4.8-10.8)
[2025-02-09 05:10] LABS: WBC MORPHOLOGY CONSISTENT W/DIFF
[2025-02-09 05:14] LABS: ASPARTATE AMINOTRANSFERASE 60.0 U/L (10-37); CREATININE 2.1 mg/dL (0.5-1.3); GLOMERULAR FILTR. RATE CALC 40.0 mL/min (>90); GLUCOSE,RANDOM 136.0 mg/dL (70-105); PHOSPHORUS 3.3 mg/dL (2.5-4.9); SODIUM SERUM 137.0 mmol/L (136-145); TOTAL PROTEIN, SERUM 5.7 g/dL (6.0-8.3); UREA NITROGEN, BLOOD 51.0 mg/dL (7-18)
--- NOTE | 2025-02-09 09:59 | HMCIMG ---
EXAM: CR Chest, 1 View. CLINICAL HISTORY: Respiratory failure COMPARISON: 02/08/2025 FINDINGS: The endotracheal tube is seen with its tip terminating about 5.4 cm above the catina. The nasogastric tube is seen in the left hemidiaphragm; the tip is not visualized. LUNGS: Essentially stable appearance of bilateral lung curtis, with persistent right basilar and diffuse left lung airspace disease. PLEURAL SPACES: No evidence of pleural effusion or pneumothorax. MEDIASTINUM: The cardiac size is stable. BONES: No aggressive appearing osseous lesion seen. IMPRESSION: 1. Endotracheal tube tip 5.4 cm above catina. 2. Nasogastric tube is demonstrated below the left hemidiaphragm; the tip is not visualized. 3. Essentially stable appearance of bilateral lung curtis, with persistent right basilar and diffuse left lung airspace disease. /[place]
--- NOTE | 2025-02-09 10:12 | HMCIMG ---
EXAM: CR Chest, 1 View. CLINICAL HISTORY: Follow up COMPARISON: 02/07/2025 FINDINGS: The endotracheal tube tip is 6.8 cm away from the catina. The nasogastric tube is seen below the left hemidiaphragm; the tip is not visualized. LUNGS: Essentially stable appearance of the bilateral lung curtis with mild bibasilar atelectasis and questionable small bilateral pleural effusions. PLEURAL SPACES: No evidence of pneumothorax. MEDIASTINUM: Cardiac size is stable. Mild stable pulmonary vascular congestion. BONES: No acute osseous abnormality. IMPRESSION: 1. Stable appearance of bilateral lung curtis with mild bibasilar atelectasis and questionable small bilateral pleural effusions. 2. Endotracheal tube tip 6.8 cm from catina. 3. Nasogastric tube below left hemidiaphragm, tip not visualized. /[place]
--- NOTE | 2025-02-09 11:03 | PN ---
[facility] PROGRESS NOTE Date Patient Seen: Feb 09, 2025 Time of Visit: 10:58 Supervising Physician: [Dr. Nash ] Primary Care Physician: [Avi LESTER] Outpatient Specialists: [ ] Inpatient Consults: [Dr. Sigala-ID, [facility] team-ICU] PROBLEM LIST: Acute hypoxemic and hypercarbic respiratory failure ARDS Community-acquired pneumonia suspected Pneumocystis Toxic metabolic encephalopathy on admission Acute sepsis on admission without septic shock secondary to community-acquired pneumonia HIV positive newly diagnosed stage IV. Not on anti-retroviral medication CD4 count: 19 Immunocompromise status Obstructive sleep apnea, untreated/undiagnosed Morbid obesity, BMI 33.6 JUAN Volume overload INTERVAL HISTORY: Patient seen and examined all labs have been reviewed. No major events overnight. Patient appears comfortable, on Precedex Vent settings are down to 40% FiO2 with a PEEP of 5. Patient's chest x-ray showing improvement Sputum cultures positive for Klebsiella pneumoniae and MSSA Plan: Continue on Cefepime, Doxy, Bactrim, and fluconazole per ID. Wean of sedation ABG and Start SBTS Follow nephrology recommendations Follow daily chest x-ray and labs Wean off sedation CM to help coordinate HIV medication management Total critical care time spent 45 minutes, this excludes any procedures performe d or any time spent in educational or teaching. REVIEW OF SYSTEMS: Patient on Precedex drip, unable to obtain information from patient. PHYSICAL EXAM: Obese GENERAL: on Vent assistance, responding to self HEENT: EOMI, Sclera non icteric, moist mucosa NECK: Supple, no JVD, trachea midline LUNGS: Fine crackles bilaterally. HEART: Regular rate and rhythm. Normal S1 and S2, without murmurs ABD: Abdomen soft, nontender. Bowel sounds present, obese EXT: No clubbing cyanosis or edema : Dias in situ NEURO: sedated Vital Signs (last 8hr) Date Time Temp Pulse Resp B/P (MAP) Pulse Ox O2 Delivery O2 Flow Rate FiO2 02/09/25 10:31 95 25 02/09/25 09:30 97 27 124/75 (91) 98 02/09/25 09:15 90 23 96/57 (70) 97 02/09/25 09:10 96 40 02/09/25 09:00 94 21 102/57 (72) 98 02/09/25 08:45 96 23 129/75 (93) 98 02/09/25 08:30 96 26 126/72 (90) 98 02/09/25 08:22 96 26 126/72 (90) 98 02/09/25 08:17 40 02/09/25 08:15 96 25 131/72 (91) 98 02/09/25 08:07 96 25 131/72 (91) 98 02/09/25 08:00 99.9 Ventilator 40 02/09/25 08:00 99 Ventilator+ 40 02/09/25 08:00 95 26 132/74 (93) 99 02/09/25 07:52 95 26 132/74 (93) 99 02/09/25 07:45 95 24 131/69 (89) 99 02/09/25 07:37 95 24 131/69 (89) 99 02/09/25 07:30 91 22 133/78 (96) 99 02/09/25 07:22 91 22 133/78 (96) 99 02/09/25 07:15 89 21 111/47 (68) 99 02/09/25 06:23 86 22 02/09/25 06:20 86 40 02/09/25 06:00 91 23 122/74 (90) 98 02/09/25 05:30 90 23 126/72 (90) 97 02/09/25 05:00 90 22 124/70 (88) 99 02/09/25 04:30 89 22 101/56 (71) 98 02/09/25 04:00 88 22 103/53 (70) 98 02/09/25 04:00 99 Ventilator+ 40 02/09/25 04:00 40 02/09/25 04:00 98.4 Ventilator 40 02/09/25 03:30 89 21 103/53 (70) 97 02/09/25 03:15 93 40 02/09/25 03:00 93 21 126/64 (84) 100 LABS: Hematology Labs: Test 02/09/25 04:24 02/08/25 05:09 Range/Units White Blood Count 8.4 4.8-10.8 K/uL Red Blood Count 2.98 L 4.50-6.20 MIL/uL Hemoglobin 8.2 L 14.0-18.0 g/dL Hematocrit 25.1 L 42-54 % Mean Corpuscular Volume 84.2 79-99 fL Mean Corpuscular Hemoglobin 27.5 27.0-33.0 pg Mean Corpuscular Hemoglobin Concent 32.7 32.0-36.0 g/dL Red Cell Distribution Width 13.4 11.0-15.5 % Platelet Count 223 130-400 K/uL Mean Platelet Volume 10.5 7.5-10.5 fL Immature Granulocyte % (Auto) 4.0 H 0-1 % Neutrophils (%) (Auto) 94.1 H 40.0-77.0 % Lymphocytes (%) (Auto) 1.2 L 21.0-51.0 % Monocytes (%) (Auto) 0.7 L 3.0-13.0 % Eosinophils (%) (Auto) 0.0 0.0-8.0 % Basophils (%) (Auto) 0.0 0.0-5.0 % Neutrophils # (Auto) 7.9 H 1.8-7.7 K/uL Lymphocytes # (Auto) 0.1 L 1.0-4.8 K/uL Monocytes # (Auto) 0.1 0.1-1.0 K/uL Eosinophils # (Auto) 0.00 0.00-0.70 K/uL Basophils # (Auto) 0.00 0.00-0.20 K/uL Absolute Immature Granulocyte (auto 0.34 0-1 K/uL Nucleated Red Blood Cells 0.4 H 0.0-0.19 % White Cell Morphology Comment CONSISTENT W/DIFF Segmented Neutrophils % 92 H 40-70 % Band Neutrophils % 3 H 0-2 % Lymphocytes % (Manual) 2 L 22-44 % Metamyelocytes % 3 H 0-0 % Differential Comment MANUAL DIFFERENTIAL Platelet Morphology Comment See comments Red Blood Cell Morphology See comments Chemistry Labs: Test 02/09/25 09:40 02/09/25 05:22 02/09/25 04:24 02/08/25 05:09 Range/Units Lactic Acid Level 3.9 H 0.8-2.5 mmol/L Whole Blood Glucose 139 H 70-110 MG/DL Sodium Level 137 136-145 mmol/L Potassium Level 5.3 H 3.5-5.1 mmol/L Chloride Level 104 101-111 mmol/L Carbon Dioxide Level 23 21-32 mmol/L Blood Urea Nitrogen 51 H 7-18 mg/dL Creatinine 2.1 H 0.5-1.3 mg/dL Glomerular Filtration Rate Calc 40 >90 mL/min Random Glucose 136 H 70-105 mg/dL Total Calcium 7.5 L 8.5-10.1 mg/dL Phosphorus Level 3.3 2.5-4.9 mg/dL Magnesium Level 2.10 1.80-2.40 mg/dL Total Bilirubin 0.5 # 0.2-1.0 mg/dL Aspartate Amino Transf (AST/SGOT) 60 H 10-37 U/L Alanine Aminotransferase (ALT/SGPT) 35 # 12-78 U/L Alkaline Phosphatase 119 50-136 U/L C-Reactive Protein, Quantitative 6.60 H 0.5-3.0 mg/L Total Protein 5.7 L 6.0-8.3 g/dL Albumin 1.4 L 3.5-5.0 g/dL Procalcitonin 0.21 0.05-0.5 ng/mL Ferritin 1935 H 30-400 ng/mL DIAGNOSTICS / RADIOLOGY RESULTS: [ ] NEURO: Minimize central acting medications as possible. Fall Precautions. Well lighted room through the day and minimize interruptions through the night to prevent acute delirium. PULMONARY: Supplemental 02 as needed Titrate Fio2 to keep Spo2 > or = 90% DuoNebs and CPT as needed IS hourly while awake for pulmonary hygiene Out of bed to chair as tolerated VAP Bundle Vent/BIPAP Settings: [ BIPAP setting 12/11 rate of 18 FiO2 60%. ] CARDIOVASCULAR: Follow hemodynamics. Titrate vasopressor to keep MAP >65 or systolic blood pressure >95mmHg DRIPS: [Precedex ] LINES: [PIV] GI & NUTRITION: Continue nutritional support Aspirations precautions Prokinetic agents and laxatives as needed KIDNEYS & ELECTROLYTES: Strict monitoring of intake and output Daily weights Avoid nephrotoxic agents Monitor electrolytes and replace as needed Dias care-prevent CAUTI per nursing Goal urine output of 30mL/hr or 0.5mL/kg/hr Urine output: [ ] Fluid Balance: [ ] ENDOCRINE: Maintain blood glucose between 100-180 at all times. Insulin sliding scale for blood glucose management INFECTIOUS DISEASE: Trend temperature. Lara-culture if febrile. Micro: [ ] Antibiotics: [Vancomycin 01/30- IV Fluconazole: 01/30- IV Sulfa/TMP: 01/30-] HEMATOLOGY & COAGULATION: Monitor H&H. Keep Hgb > 7 Transfuse 1 unit of PRBC for Hgb < 7 Transfuse 1 pack of platelets of platelets < 20, 000 Watch for any signs and symptoms of bleeding SKIN: Pressure ulcer prevention per facility protocol Rehab: PT/OT Prophylaxis: GI: [Pepcid] DVT: [Heparin ] Code Status: Full Resuscitation Disposition: [ICU ] NETO STARR AGACNP Feb 09, 2025 11:03
[2025-02-09 11:04] LABS: ABG BASE EXCESS -1.2 mmol/L (-2.0-3.0); ABG HCO3 22.4 mmol/L (21.0-28.0); ABG OXYGEN SATURATION 97.1 % (94.0-98.0); ABG PCO2 35 mmHg (35-48); ABG PH 7.429 (7.350-7.450); DEVICE COMMENT RR EDDY; PO2, ARTERIAL BG 89.5 mmHg (83.0-108.0); TEMPERATURE, CELSIUS BG 37.0 CELSIUS (35.5-37.0); VENT MODE, BG CPAP PS10 (ROOM AIR)
--- NOTE | 2025-02-09 11:27 | NUR ---
LAQUITA KIMBALL ILION SPOKE TO GIRISH AT [facility] SAID SHE SPOKE TO LINKAGE AND DR ANDERSON SAID THEY CAN NOT GIVE MEDS UNTIL HE IS SEEN BY THEIR MD. ID AT HOSPITAL WILL HAVE TO GIVE MEDS HERE THEY CAN HELP ONCE HE GOES HOME.
[2025-02-09] MEDS: NA ZIRCON CYCLOSIL(LOKELMA 10GM) PO SCH (12:26)
--- NOTE | 2025-02-09 13:12 | PN ---
NEPHROLOGY PROGRESS NOTE Date/Time Patient Seen: Feb 09, 2025 SUBJECTIVE: This is a 44-year-old male with HIV positive newly diagnosed He was brought by EMS to the ED for complaints of shortness of breaths for the past two weeks. He has been in the hospital for several days He continues on antibiotics, including Bactrim, as per ID. He was noted to have elevated BUN/creatinine We are consulted for renal failure Renal function continues to worsen Electrolytes are noted He has been started on Lokelma BID Renal ultrasound showed partially distended bladder with no hydronephrosis or renal calculus He continues on Lasix, urine output was noted Tolerating Nepro tube feedings He was seen in the ICU, Continues to be intubated and sedated Family at the bedside Prognosis remains guarded REVIEW OF SYSTEMS: Difficult to obtain given status of the patient who remains intubated mechanically ventilated Vital Signs (last 8hr) Date Time Temp Pulse Resp B/P (MAP) Pulse Ox O2 Delivery O2 Flow Rate FiO2 02/09/25 12:17 40 02/09/25 12:08 101.5 02/09/25 12:00 101.5 Ventilator 40 02/09/25 12:00 99 Ventilator+ 40 02/09/25 11:48 114 40 02/09/25 11:00 106 27 142/68 (92) 98 02/09/25 10:45 106 30 135/72 (93) 98 02/09/25 10:31 95 25 02/09/25 10:30 105 28 140/73 (95) 99 02/09/25 10:15 98 30 135/78 (97) 98 02/09/25 10:00 95 25 134/71 (92) 98 02/09/25 09:45 96 25 131/72 (91) 98 02/09/25 09:30 97 27 124/75 (91) 98 02/09/25 09:15 90 23 96/57 (70) 97 02/09/25 09:10 96 40 02/09/25 09:00 94 21 102/57 (72) 98 02/09/25 08:45 96 23 129/75 (93) 98 02/09/25 08:30 96 26 126/72 (90) 98 02/09/25 08:22 96 26 126/72 (90) 98 02/09/25 08:17 40 02/09/25 08:15 96 25 131/72 (91) 98 02/09/25 08:07 96 25 131/72 (91) 98 02/09/25 08:00 99.9 Ventilator 40 02/09/25 08:00 99 Ventilator+ 40 02/09/25 08:00 95 26 132/74 (93) 99 02/09/25 07:52 95 26 132/74 (93) 99 02/09/25 07:45 95 24 131/69 (89) 99 02/09/25 07:37 95 24 131/69 (89) 99 02/09/25 07:30 91 22 133/78 (96) 99 02/09/25 07:22 91 22 133/78 (96) 99 02/09/25 07:15 89 21 111/47 (68) 99 02/09/25 06:23 86 22 02/09/25 06:20 86 40 02/09/25 06:00 91 23 122/74 (90) 98 02/09/25 05:30 90 23 126/72 (90) 97 PHYSICAL EXAM: General: acutely ill, sedated, intubated, and mechanically ventilated HEENT: head is atraumatic, pupils equal and reactive, ET tube in place Neck: supple, no masses, no lymphadenopathy, no thyromegaly, no JVD Lungs: decreased breath sounds bilaterally, symmetrical chest movement Cardio: regular rate, S1 and S2 normal, no rub or gallop Abdomen: soft, non tender, no distension, no organomegaly Extremities: trace edema bilateral lower extremities, no cyanosis or clubbing Skin: no rashes or suspicious lesions Neuro: sedated Current Medications Medications (Trade) Dose Ordered Sig/Amada Route Start Time Stop Time Status Last Admin Dose Admin Albuterol (DUOneb) 1 udvial [id number] IH 01/30/25 22:00 03/01/25 21:59 02/09/25 10:30 1 UDVIAL Cefepime HCl (MAXipime 2 gm vial) 2 gm Q12H IVPB 02/01/25 14:00 02/11/25 13:59 02/09/25 01:56 2 GM Dexmedetomidine/ Sodium Chloride (PRECEdex 400MCG/ 100ML-NS) 400 mcg PROTOCOL IV 02/04/25 23:45 03/06/25 23:44 02/09/25 05:56 400 MCG Doxycycline Hyclate 250 ml @ 125 mls/hr Q12H IV 01/31/25 14:00 02/10/25 13:59 02/09/25 01:56 125 MLS/HR Famotidine (Pepcid 20mg Vial) 20 mg DAILY IV 01/31/25 09:00 03/02/25 08:59 02/09/25 08:28 20 MG Fentanyl Citrate 100 ml @ 2.5 mls/hr PROTOCOL IV 02/05/25 11:30 02/05/25 19:59 DC 02/05/25 17:13 2.5 MLS/HR Fentanyl/Sodium Chloride 250 ml @ 0.1 mls/hr PROTOCOL IV 02/05/25 20:00 02/08/25 15:52 DC 02/07/25 22:11 0.1 MLS/HR Fluconazole/ Sodium Chloride (DiFLUCan 200 MG/ NS 100 ML) 200 mg DAILY22 IV 02/02/25 22:00 03/01/25 17:59 02/08/25 23:07 200 MG Fluconazole/ Sodium Chloride (DiFLUCan 200 MG/ NS 100 ML) 200 mg Q24H IV 01/30/25 18:00 02/02/25 14:38 DC 02/01/25 18:17 200 MG Furosemide (LASix 20MG VIAL) 20 mg Q8H IV 02/06/25 16:00 03/08/25 15:59 02/09/25 08:02 20 MG Furosemide (LASix 40MG VIAL) 20 mg ONCE STAT IV 01/31/25 05:37 01/31/25 05:40 DC 01/31/25 05:45 20 MG Heparin Sodium (Porcine) (HEParin 5,000 UNIT VIAL) 5,000 unit Q12H SQ 01/31/25 09:00 03/02/25 08:59 02/09/25 08:47 5,000 UNIT Insulin Glargine (LANtus 100 UNITS/ML 10 ML VIAL) 20 units BID SQ 02/04/25 21:00 02/06/25 14:49 DC 02/06/25 10:03 20 UNITS Insulin Glargine (LANtus 100 UNITS/ML 10 ML VIAL) 30 units BID SQ 02/06/25 21:00 03/08/25 20:59 02/09/25 08:36 30 UNITS Insulin Human Regular (humuLIN R 100 UNIT/ML 3ML) INSULIN SLIDING SCAL... ACHS SQ 02/07/25 16:30 02/07/25 11:56 DC Insulin Human Regular (humuLIN R 100 UNIT/ML 3ML) INSULIN SLIDING SCAL... Q6H6 SQ 01/31/25 06:00 02/07/25 11:55 DC 02/07/25 06:03 5 UNIT Insulin Human Regular (humuLIN R 100 UNIT/ML 3ML) INSULIN SLIDING SCAL... Q6H6 SQ 02/07/25 12:00 03/09/25 11:59 02/08/25 18:27 4 UNIT Methylprednisolone Sodium Succinate (Solu-medROL 40MG) 40 mg BID IVP 01/30/25 21:00 01/31/25 04:16 DC 01/30/25 21:18 40 MG Methylprednisolone Sodium Succinate (Solu-medROL 40MG) 40 mg BID IVP 02/07/25 21:00 03/09/25 20:59 02/09/25 08:28 40 MG Methylprednisolone Sodium Succinate (Solu-medROL 40MG) 40 mg Q8H IVP 01/31/25 04:30 02/02/25 11:57 DC 02/02/25 11:47 40 MG Methylprednisolone Sodium Succinate (Solu-medROL 40MG) 60 mg Q6H IVP 02/02/25 12:00 02/07/25 15:17 DC 02/07/25 11:27 60 MG Metoclopramide HCl (regLAN 10MG IV) 10 mg Q8H IVP 02/06/25 16:00 03/08/25 15:59 02/09/25 08:02 10 MG Morphine Sulfate (morPHINE 2MG SYG) 2 mg ONCE STAT IVP 01/31/25 05:41 01/31/25 05:45 DC 01/31/25 05:51 2 MG Multi-Ingred Cream/Lotion/Oil/ Oint (Artificial Tears Eye Oint) Apply ointment to both e... Q4H OU 01/31/25 15:00 03/02/25 14:59 02/09/25 06:37 1 APPL Norepinephrine Bitartrate (Norepineph 16 Mg/250ml NS Premix) sbp>90 PROTOCOL IV 02/05/25 11:30 03/07/25 11:29 Pharmacy Profile Note (Pharmacy Communication) 1 each ONCE MISC 02/05/25 11:30 02/05/25 11:23 DC Piperacillin Sod/ Tazobactam Sod (Zosyn 3.375gm+NS 50ml) 3.375 gm Q8H IVPB 01/31/25 09:30 01/31/25 12:56 DC 01/31/25 11:04 3.375 GM Piperacillin Sod/ Tazobactam Sod (Zosyn 3.375gm+NS 50ml) 3.375 gm ZOSY8 IVPB 01/31/25 13:00 02/01/25 13:33 DC 02/01/25 11:54 3.375 GM Polyethylene Glycol (MIRalax 3350 17 GM POWD.PACK) 17 gm DAILY PO 02/07/25 11:30 03/09/25 11:29 02/09/25 08:28 17 GM Sodium Bicarbonate (Sodium Bicarb 50meq 50ml Vial) 50 meq Q8H6 IV 02/06/25 14:00 02/07/25 16:00 DC 02/07/25 14:47 50 MEQ Sodium Chloride 1,000 ml @ 100 mls/hr Q10H IV 01/30/25 20:00 01/31/25 05:38 DC 01/30/25 21:18 100 MLS/HR Sodium Zirconium Cyclosilicate (Lokelma 10gm Powder) 10 gm BID PO 02/09/25 12:00 02/10/25 11:59 02/09/25 12:26 10 GM Trimethoprim/ Sulfamethoxazole 480 mg/Dextrose 500 ml @ 250 mls/hr Q6H IV 01/30/25 21:00 02/01/25 11:57 DC 02/01/25 02:49 250 MLS/HR Trimethoprim/ Sulfamethoxazole 480 mg/Dextrose 500 ml @ 250 mls/hr Q6H IV 02/01/25 12:00 02/11/25 11:59 02/09/25 12:21 250 MLS/HR Trimethoprim/ Sulfamethoxazole / Dextrose 100 ml @ 100 mls/hr AD IV 01/30/25 20:00 02/09/25 19:59 UNV Wound Care/ Dressing Products (Venelex Ointment) BID TP 02/09/25 21:00 03/11/25 20:59 LABORATORY: [ ] Hematology Labs: Test 02/09/25 04:24 02/08/25 05:09 Range/Units White Blood Count 8.4 4.8-10.8 K/uL Red Blood Count 2.98 L 4.50-6.20 MIL/uL Hemoglobin 8.2 L 14.0-18.0 g/dL Hematocrit 25.1 L 42-54 % Mean Corpuscular Volume 84.2 79-99 fL Mean Corpuscular Hemoglobin 27.5 27.0-33.0 pg Mean Corpuscular Hemoglobin Concent 32.7 32.0-36.0 g/dL Red Cell Distribution Width 13.4 11.0-15.5 % Platelet Count 223 130-400 K/uL Mean Platelet Volume 10.5 7.5-10.5 fL Immature Granulocyte % (Auto) 4.0 H 0-1 % Neutrophils (%) (Auto) 94.1 H 40.0-77.0 % Lymphocytes (%) (Auto) 1.2 L 21.0-51.0 % Monocytes (%) (Auto) 0.7 L 3.0-13.0 % Eosinophils (%) (Auto) 0.0 0.0-8.0 % Basophils (%) (Auto) 0.0 0.0-5.0 % Neutrophils # (Auto) 7.9 H 1.8-7.7 K/uL Lymphocytes # (Auto) 0.1 L 1.0-4.8 K/uL Monocytes # (Auto) 0.1 0.1-1.0 K/uL Eosinophils # (Auto) 0.00 0.00-0.70 K/uL Basophils # (Auto) 0.00 0.00-0.20 K/uL Absolute Immature Granulocyte (auto 0.34 0-1 K/uL Nucleated Red Blood Cells 0.4 H 0.0-0.19 % White Cell Morphology Comment CONSISTENT W/DIFF Segmented Neutrophils % 92 H 40-70 % Band Neutrophils % 3 H 0-2 % Lymphocytes % (Manual) 2 L 22-44 % Metamyelocytes % 3 H 0-0 % Differential Comment MANUAL DIFFERENTIAL Platelet Morphology Comment See comments Red Blood Cell Morphology See comments Chemistry Labs: Test 02/09/25 09:40 02/09/25 05:22 02/09/25 04:24 02/08/25 05:09 Range/Units Lactic Acid Level 3.9 H 0.8-2.5 mmol/L Whole Blood Glucose 139 H 70-110 MG/DL Sodium Level 137 136-145 mmol/L Potassium Level 5.3 H 3.5-5.1 mmol/L Chloride Level 104 101-111 mmol/L Carbon Dioxide Level 23 21-32 mmol/L Blood Urea Nitrogen 51 H 7-18 mg/dL Creatinine 2.1 H 0.5-1.3 mg/dL Glomerular Filtration Rate Calc 40 >90 mL/min Random Glucose 136 H 70-105 mg/dL Total Calcium 7.5 L 8.5-10.1 mg/dL Phosphorus Level 3.3 2.5-4.9 mg/dL Magnesium Level 2.10 1.80-2.40 mg/dL Total Bilirubin 0.5 # 0.2-1.0 mg/dL Aspartate Amino Transf (AST/SGOT) 60 H 10-37 U/L Alanine Aminotransferase (ALT/SGPT) 35 # 12-78 U/L Alkaline Phosphatase 119 50-136 U/L C-Reactive Protein, Quantitative 6.60 H 0.5-3.0 mg/L Total Protein 5.7 L 6.0-8.3 g/dL Albumin 1.4 L 3.5-5.0 g/dL Procalcitonin 0.21 0.05-0.5 ng/mL Ferritin 1935 H 30-400 ng/mL DIAGNOSTICS / RADIOLOGY: [address] [address] IMAGING REPORT Signed PATIENT: CHARY HERNANDEZ MR#: [id number] : 1980 SEX: M AGE: 44 LOCATION: 2C ORDER 2300 STATUS: ADM IN REPORT#: [id number] SERVICE 0600 REASON: Respirateory failure ORDERING PHYSICIAN: NETO STARR PROCEDURE: CXR1VW - CHEST 1VW EXAM: CR Chest, 1 View. CLINICAL HISTORY: Respiratory failure COMPARISON: 02/08/2025 FINDINGS: The endotracheal tube is seen with its tip terminating about 5.4 cm above the catina. The nasogastric tube is seen in the left hemidiaphragm; the tip is not visualized. LUNGS: Essentially stable appearance of bilateral lung curtis, with persistent right basilar and diffuse left lung airspace disease. PLEURAL SPACES: No evidence of pleural effusion or pneumothorax. MEDIASTINUM: The cardiac size is stable. BONES: No aggressive appearing osseous lesion seen. IMPRESSION: 1. Endotracheal tube tip 5.4 cm above catina. 2. Nasogastric tube is demonstrated below the left hemidiaphragm; the tip is not visualized. 3. Essentially stable appearance of bilateral lung ucrtis, with persistent right basilar and diffuse left lung airspace disease. /[place] DICTATED BY: LARISSA LEMONS Jr., MD DATE: 02/09/251057 ELECTRONICALLY SIGNED BY: LARISSA LEMONS Jr., MD DATE: 02/09/251057 PATIENT: CHARY HERNANDEZ MR#: [id number] : 1980 SEX: M AGE: 44 LOCATION: [facility] ORDER 2300 STATUS: ADM IN REPORT#: [id number] SERVICE 0600 REASON: pp ORDERING PHYSICIAN: BIANCA WICK PAC PROCEDURE: CXR1VW - CHEST 1VW EXAM: CR Chest, 1 View. CLINICAL HISTORY: Follow up COMPARISON: 02/07/2025 FINDINGS: The endotracheal tube tip is 6.8 cm away from the catina. The nasogastric tube is seen below the left hemidiaphragm; the tip is not visualized. LUNGS: Essentially stable appearance of the bilateral lung curtis with mild bibasilar atelectasis and questionable small bilateral pleural effusions. PLEURAL SPACES: No evidence of pneumothorax. MEDIASTINUM: Cardiac size is stable. Mild stable pulmonary vascular congestion. BONES: No acute osseous abnormality. IMPRESSION: 1. Stable appearance of bilateral lung curtis with mild bibasilar atelectasis and questionable small bilateral pleural effusions. 2. Endotracheal tube tip 6.8 cm from catina. 3. Nasogastric tube below left hemidiaphragm, tip not visualized. /[place] DICTATED BY: LARISSA LEMONS Jr., MD DATE: 02/09/25 1110 ELECTRONICALLY SIGNED BY: LARISSA LEMONS Jr., MD DATE: 02/09/25 1110 PATIENT: CHARY HERNANDEZ MR#: [id number] : 1980 SEX: M AGE: 44 LOCATION: 2CH ORDER 2300 STATUS: ADM IN REPORT#: [id number] SERVICE 0600 REASON: pp ORDERING PHYSICIAN: BIANCA WICK PAC PROCEDURE: CXR1VW - CHEST 1VW EXAM: CR Chest, 2 View. CLINICAL HISTORY: Intubated. COMPARISON: 02/06/2025 FINDINGS: The endotracheal tube is seen with its tip terminating about 6.7 cm above the catina. The nasogastric tube terminates in the proximal stomach. LUNGS: Interval improvement in basilar predominant bilateral diffuse airspace disease is present. PLEURAL SPACES: No definite pleural effusion or pneumothorax. MEDIASTINUM: Cardiac size is stable. BONES: No aggressive appearing osseous lesion seen. IMPRESSION: 1. Interval improvement in bilateral basilar predominant airspace disease. 2. Endotracheal tube tip positioned 6.7 cm above catina. 3. The nasogastric tube terminates in the proximal stomach. /[place] DICTATED BY: LARISSA LEMONS Jr., MD DATE: 02/07/251748 ELECTRONICALLY SIGNED BY: LARISSA LEMONS Jr., MD DATE: 02/07/251748 PATIENT: CHARY HERNANDEZ MR#: [id number] : 1980 SEX: M AGE: 44 LOCATION: 2CH ORDER 1341 STATUS: ADM IN REPORT#: [id number] SERVICE 1337 REASON: JUAN ORDERING PHYSICIAN: DARBY PORRAS MD PROCEDURE: RENAL - US RENAL SONOGRAM EXAMINATION: ULTRASOUND OF THE RETROPERITONEUM. CLINICAL HISTORY: JUAN. COMPARISON: None. TECHNIQUE: Real-time grayscale ultrasound images of the kidneys. FINDINGS: The kidneys are normal in caliber, the right kidney measures 12.9 x 6.5 x 6.5 cm and the left kidney measures 11.0 x 5.6 x 5.5 cm in its craniocaudal, AP, and transverse dimensions respectively. There is normal renal cortical thickness, and cortical echogenicity. There is no renal calculus or hydronephrosis. The urinary bladder is partially distended with mild wall thickening (0.6 cm). There are no calculi in the urinary bladder. IMPRESSION: Urinary bladder wall thickening of concern for cystitis. /[place] DICTATED BY: LARISSA LEMONS Jr., MD DATE: 02/07/25716 ELECTRONICALLY SIGNED BY: LARISSA LEMONS Jr., MD DATE: 02/07/25716 PATIENT: CHARY HERNANDEZ MR#: [id number] : 1980 SEX: M AGE: 44 LOCATION: 2CH ORDER 1118 STATUS: ADM IN REPORT#: [id number] SERVICE 1145 REASON: post intubation ORDERING PHYSICIAN: COMPA PATRICK MD PROCEDURE: CXR1VW - CHEST 1VW EXAM: CR Chest, 2 View. CLINICAL HISTORY: post intubation COMPARISON: Radiograph from February 04, 2025 FINDINGS: Endotracheal tubes in satisfactory position, tip terminating 3.5 cm above the catina. Right PICC terminates overlying the SVC. Bibasilar airspace disease may reflect an infectious process. No pleural effusion or pneumothorax. Heart size is stable. Pulmonary vessels are within normal limits. IMPRESSION: 1. Endotracheal tube and right PICC line in satisfactory positions. 2. Bibasilar airspace disease, possibly infectious. /[place] DICTATED BY: LARISSA LEMONS Jr., MD DATE: 02/05/25 140 ELECTRONICALLY SIGNED BY: LARISSA LEMONS Jr., MD DATE: 02/05/25 140 PATIENT: CHARY HERNANDEZ MR#: [id number] : 1980 SEX: M AGE: 44 LOCATION: 2CH ORDER 9 STATUS: ADM IN REPORT#: [id number] SERVICE 8 REASON: ngt placement for TF ORDERING PHYSICIAN: ISAC MATHEW MD PROCEDURE: ABD 1VW - ABD 1VW EXAM: CR Abdomen, 1 View. CLINICAL HISTORY: ngt placement for TF COMPARISON: None provided. FINDINGS: BOWEL: The transverse colon is filled with gas and fecal content could be due to constipation Nasogastric tubes projecting below lthe eft hemidiaphragm in the stomach PERITONEUM/SOFT TISSUES: No free air evident. No pathologic appearing calcification. BONES: No acute osseous abnormality. IMPRESSION: The nasogastric tube is projected below the left hemidiaphragm over the stomach, tip is located in the body portion of the stomach Gas and fecal-loaded transverse colon consistent with constipation /[place] DICTATED BY: LARISSA LEMONS Jr., MD DATE: 02/03/251138 ELECTRONICALLY SIGNED BY: LARISSA LEMONS Jr., MD DATE: 02/03/251138 PATIENT: CHARY HERNANDEZ MR#: [id number] : 1980 SEX: M AGE: 44 LOCATION: 2CH ORDER 043 STATUS: ADM IN REPORT#: [id number] SERVICE 5 REASON: hypoxia ORDERING PHYSICIAN: BIANCA GARCIACNLeo PROCEDURE: ECHO CMP - ECHO 2-D COMPLETE APPROVED REPORT EXAM: Two-dimensional and M-mode echocardiogram with Doppler and color Doppler. INDICATION ICD: R06.02 Shortness of breath 2D Dimensions RVDd 4.5 cm LVEF(%) 58.7 (>50%) LVED Vol(simp.) 152.0 mL IVSd 1.2 (0.7-1.1cm) FS(%) 32 % LVES Vol(simp.) 70.0 mL LVDd 6.1 (3.8-5.6cm) LA (2D) 4.0 (1.6-4.0cm) LVEF(%, simp.) 54 % PWd 0.8 (0.7-1.1cm) Ao Root(2D) 3.4 (2.0-3.7cm) LA ESV INDEX (BP) 26.38 mL/m2 IVSs 1.5 cm LVOT diam 2.7 (1.8-2.4cm) LVDs 4.1 (2.5-4.0cm) IVC diam 2.7 cm PWs 1.1 cm Deformation Strain Apical 4 -16.1 % Apical 2 -16.4 % Apical 3 -17.4 % Global Strain -16.6 % M-Mode Dimensions EPSS 0.3 cm LA (MM) 4.2 (1.6-4.0cm) Ao Root(MM) 4.0 (2.0-3.7cm) Aortic Valve AoV Vmax 1.4 m/s Ao Peak GR 7.3 mmHg LVOT Vmax 1.2 m/s AoV VTI 0.3 m Ao Mean GR 4.7 mmHg LVOT VTI 0.23 m MINH (VMAX) 5.28 cm2 MINH (VTI) 5.3 cm2 Mitral Valve MV E Vmax 88.4 cm/s DECEL Time 146 ms MV A Vmax 76.4 cm/s P 1/2 T 41 ms E/A ratio 1.2 MVA (PHT) 5.4 cm2 TDI E/E' Medial 10.2 E/E' Lateral 10.5 Medial E' Peak V 8.64 cm/s Lateral E' Peak V 8.43 cm/s Pulmonary Valve PV Vmax 0.8 m/s PV Peak GR 2.3 mmHg Tricuspid Valve TR Vmax 1.1 m/s RAP (EST) 8 mmHg RVSP 12.9 mmHg TR Peak GR 4.9 mmHg Left Ventricle The left ventricle is normal size. GLS -16.0% There is normal LV segmental wall motion. There is mild left ventricular wall thickness. LVEF is 55%. The LV diastolic function was unable to be assessed due to atrial arrhythmia. Right Ventricle The right ventricle is normal size. The right ventricular systolic function is normal. Atria The left atrium size is normal. The right atrium size is normal. Aortic Valve The aortic valve is normal in structure. No aortic regurgitation is present. There is no aortic valvular stenosis. Mitral Valve The mitral valve is normal in structure. There is trace of mitral valve regurgitation noted. There is no mitral valve stenosis. Tricuspid Valve The tricuspid valve is normal in structure. There is no tricuspid valve regurgitation noted. Pulmonic Valve The pulmonary valve is normal in structure. There is mild pulmonic valvular regurgitation. Great Vessels The aortic root is normal in size. IVC is dilated and collapses >50% with inspiration. Pericardium There is no pericardial effusion. Other Information Quality : Technically diffcult study due to body habitus Conclusion LVEF is 55%. DICTATED BY: CAROL GALLAGHER MD DATE: 01/31/25844 ELECTRONICALLY SIGNED BY: CAROL GALLAGHER MD DATE: 01/31/252052 PATIENT: CHARY HERNANDEZ MR#: [id number] : 1980 SEX: M AGE: 44 LOCATION: 2C ORDER STATUS: ADM IN [facility] REPORT#: [id number] SERVICE REASON: r/o DVT ORDERING PHYSICIAN: BIANCA GARCIA PROCEDURE: VENOUS GRACIE - US VENOUS DOPPLER BILATERAL EXAM: US for Deep Venous Thrombosis, bilateral Lower Extremity. CLINICAL HISTORY: Rule out deep venous thrombosis. TECHNIQUE: Real-time ultrasound scan of the veins of the bilateral lower extremity with color Doppler flow, spectral waveform analysis and compression. COMPARISON: None provided. FINDINGS: DEEP VEINS: The common femoral, superficial femoral, and popliteal veins are echolucent and compressible. There is normal color Doppler flow throughout. The visualized calf veins appear patent. SOFT TISSUES: No popliteal fossa cyst or other abnormalities. IMPRESSION: No deep venous thrombosis is evident on bilateral lower extremity examination. /[place] DICTATED BY: LARISSA LEMONS Jr., MD DATE: 01/31/25400 ELECTRONICALLY SIGNED BY: LARISSA LEMONS Jr., MD DATE: 01/31/25400 PATIENT: CHARY HERNANDEZ MR#: [id number] : 1980 SEX: M AGE: 44 LOCATION: [facility] ORDER STATUS: ADM IN REPORT#: [id number] SERVICE REASON: r/o P.E. ORDERING PHYSICIAN: BIANCA GARCIA PROCEDURE: CHES PE - CT CHEST PE PROTOCOL WWO CONT EXAMINATION: CT Chest, with intravenous contrast CLINICAL HISTORY: Patient presents to rule out pulmonary embolism. TECHNIQUE: Axial computed tomography images of the chest, with intravenous contrast. Multiplanar reformations were generated and reviewed. CONTRAST: With intravenous contrast. COMPARISON: None provided. FINDINGS: CHEST: LUNGS: The lungs demonstrate extensive diffuse consolidation and airspace opacities and ground-glassing throughout the bilateral lungs, predominantly involving the lower lobes and perihilar regions. No pulmonary mass. PLEURAL SPACES: No pneumothorax or pleural effusion. CARDIOVASCULAR: Cardiomegaly is present. No significant pericardial effusion. The main pulmonary artery measures 3.2 cm. The right pulmonary artery measures 2 cm. The left pulmonary artery measures 2.2 cm. The pulmonary arteries show no evidence of filling defects. Normal caliber thoracic aorta. MEDIASTINUM AND SILVINO: No mediastinal or hilar lymphadenopathy. ABDOMEN : Hepatosplenomegaly BONES: No acute or aggressive osseous abnormality. IMPRESSION: No acute pulmonary embolism. Extensive diffuse bilateral pulmonary airspace opacities, predominantly in the lower lobes and perihilar regions, consistent with pulmonary edema. Cardiomegaly with mild pulmonary arterial hypertension. Hepatosplenomegaly. /[place] DICTATED BY: LARISSA LEMONS Jr., MD DATE: 01/31/25803 ELECTRONICALLY SIGNED BY: LARISSA LEMONS Jr., MD DATE: 01/31/25803 ASSESSMENT: Hyperkalemia Acute renal failure Acute hypoxemic and hypercarbic respiratory failure now with worsening respiratory distress ARDS Community-acquired pneumonia suspected Pneumocystis Toxic metabolic encephalopathy on admission Acute sepsis on admission without septic shock secondary to community-acquired pneumonia HIV positive newly diagnosed stage IV. Not on anti-retroviral medication CD4 count: 19 Immunocompromise status Suspected TB Obstructive sleep apnea, untreated/undiagnosed Morbid obesity, BMI 33.6 Volume overload PLAN: Labs, diagnostic, radiologic exams reviewed and interpreted by myself and supervising physician. We have reviewed external records in detail There is no need for emergent renal replacement therapy at this time. Continue with Lokelma Continue with close monitoring of electrolytes and renal function Order CBC, CMP, and electrolytes in am Continue with antibiotics as per ID Continue mechanical ventilation and sedation IV pressors as needed Monitor blood pressure adjust medication doses as needed May use Dilaudid 0.5 mg IV every 6 hours as needed for severe pain Monitor blood sugars Strict intake, output, and daily weight should be monitored Please renally adjust medications Avoid nephrotoxic and nonsteroidal drugs Avoid contrast if possible Will continue to monitor renal function, anemia, electrolytes Treatment plan discussed with patient Questions were answered We have discussed with the other team physicians in detail about the care plan We will continue to monitor the patient closely Total critical care time spent with patient, nursing staff, critical care team over 35 minutes ATTESTATION BY PHYSICIAN I have seen and examined the patient. I reviewed the documentation, medical decision making, and treatment plan as noted by the mid-level provider above. I agree with the findings and plan of care. DARBY PORRAS MD, [facility] Feb 09, 2025 13:12
--- NOTE | 2025-02-09 14:11 | PN ---
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 bilateral infiltrates. CT chest on presentation showed bilateral airspace opacities involving nearly entire lung curtis raising concern for severe diffuse pneumonia/ARDS like pattern Patient is currently intubated on CPAP, weaned off from propofol and fentanyl drips. Plan is to wean off Precedex today, try spontaneous breathing trials and extubate. Continue Solu-Medrol 40mg IV bid DuoNeb inhalation q.4h Pulmonology on board, we will continue to follow the recommendations Suspected Pneumocystis Jirovecii Pneumonia (PJP )POA Chest x-ray on presentation showed diffuse bilateral pneumonia with ARDS type p icture CT chest showed bilateral airspace opacities involving nearly entire lung curtis raising concern for severe diffuse pneumonia/ARDS like pattern Continue fluconazole 200 mg IV Q 24 , TMP SMX q.6 Continue on IV cefepime2 g q.12h , doxycycline q.12h IV Pulmonology, Infectious Disease on board. We will follow their recommendations. Suspected undiagnosed HIV infection POA Patient had history of on unsafe sexual practices with multiple partners reported by her sister HIV1 and 2 Ab, HIV P 24 Ag evaluation showed preliminary positive for both HIV1 and 2 antigen/antibody, 4th gen preliminary reactive Absolute CD4 count 19, CD4/CD8 ratio 0.04 HIV 1RNA PCR showed a viral load of [id number] Case management working with [facility] for HIV management. ID on board. Not on any anti-retroviral therapy yet. Systemic inflammatory response with organ dysfunction due to suspected infection POA On presentation to ED patient's temperature 100.2, pulse 112, respiratory rate 28, lactic acid 2, protocol 1.55 Chest x-ray showed diffuse bilateral pneumonia with ARDS type picture CT chest showed bilateral airspace opacities involving nearly entire lung curtis raising concern for severe diffuse pneumonia/ARDS like pattern Continue fluconazole 200 mg IV Q 24 , TMP SMX q.6 Continue on IV cefepime2 g q.12h , continue doxycycline q.12h IV Lactic acid today 3.9 We will trend white count, lactic acid Uncontrolled hyperglycemia secondary to steroids Blood glucose in the morning was 322 and well elevated likely from steroids. Continue to monitor the blood glucose level. Continue insulin sliding scale. Tuberculosis R/O POA 3 out of 3 sputum samples collected for AFB smear. Sputum sample is sent for respiratory culture, we will follow up with the culture results. No acid-fast bacilli in smear from first 2 samples, studies to continue. GI prophylaxis with Pepcid 20 mg IV DVT prophylaxis with heparin 5000 SQ q.12h ATTESTATION BY PHYSICIAN I have seen and examined the patient. I reviewed the documentation, medical decision making, and treatment plan as noted by the resident physician above. I agree with the findings and plan of care. DIANN MITCHELL MD, ADIL SHAH QUADRI MD Feb 09, 2025 14:11
--- NOTE | 2025-02-09 19:23 | PN ---
INFECTIOUS DISEASE PROGRESS NOTE Date of Service: Feb 09, 2025 SUBJECTIVE: Patient was seen at bedside in room 217. Patient continues intubated and during visit today undergoing CPAP trials. The Precedex was stopped to see if patient wakes up. Patient has a low-grade fever 99.9 this morning. We will continue on cefepime, Bactrim IV, doxycycline IV and fluconazole IV. Patient's sister visiting at bedside was updated. PHYSICAL EXAM EYES: Anicteric. Pupils equal and reactive. HENT: Dry Oral mucosa. Oral thrush. NGT. NECK: Supple, no JVD or thyromegaly. LUNGS: On mechanical ventilatory support. CARDIOVASCULAR: S1, S2 regular. No murmur heard. ABDOMEN: Soft, non tender, bowel sounds present, no organomegaly. CENTRAL NERVOUS SYSTEM: Intubated. SKIN: Rash on abdomen and lower extremities. LYMPHATICS: No peripheral lymphadenopathy MUSCULOSKELETAL: No joint swelling, erythema or tenderness. EXTREMITIES: No cyanosis or clubbing. Weakness. BACK: No deformity, no pressure ulcer. GENITOURINARY: No dysuria or hematuria. Dias catheter. Vital Sign (Last 12 Hours) 02/09/25 02/09/25 02/09/25 02/09/25 07:22 07:30 07:37 07:45 Pulse 91 91 95 95 Resp 22 22 24 24 B/P (MAP) 133/78 (96) 133/78 (96) 131/69 (89) 131/69 (89) Pulse Ox 99 99 99 99 02/09/25 02/09/25 02/09/25 02/09/25 07:52 08:00 08:00 08:00 Temp 99.9 Pulse 95 95 Resp 26 B/P (MAP) 132/74 (93) 132/74 (93) Pulse Ox 99 99 99 O2 Delivery Ventilator+ Ventilator FiO2 40 40 02/09/25 02/09/25 02/09/25 02/09/25 08:07 08:15 08:17 08:22 Pulse 96 96 96 Resp 26 B/P (MAP) 131/72 (91) 131/72 (91) 126/72 (90) Pulse Ox 98 98 98 FiO2 40 02/09/25 02/09/25 02/09/25 02/09/25 08:30 08:45 09:00 09:10 Pulse 96 96 94 96 Resp 26 23 21 B/P (MAP) 126/72 (90) 129/75 (93) 102/57 (72) Pulse Ox 98 98 98 FiO2 40 02/09/25 02/09/25 02/09/25 02/09/25 09:15 09:30 09:45 10:00 Pulse 90 97 96 95 Resp B/P (MAP) 96/57 (70) 124/75 (91) 131/72 (91) 134/71 (92) Pulse Ox 97 98 98 98 02/09/25 02/09/25 02/09/25 02/09/25 10:15 10:30 10:31 10:45 Pulse 98 105 95 106 Resp B/P (MAP) 135/78 (97) 140/73 (95) 135/72 (93) Pulse Ox 98 99 98 02/09/25 02/09/25 02/09/25 02/09/25 11:00 11:15 11:30 11:45 Pulse 106 109 114 118 Resp B/P (MAP) 142/68 (92) 143/69 (93) 149/77 (101) 156/81 (106) Pulse Ox 98 98 98 98 02/09/25 02/09/25 02/09/25 02/09/25 11:48 12:00 12:00 12:00 Temp 101.5 Pulse 114 117 Resp 36 B/P (MAP) 140/69 (92) Pulse Ox 96 99 O2 Delivery Ventilator+ Ventilator FiO2 40 40 40 02/09/25 02/09/25 02/09/25 02/09/25 12:08 12:15 12:17 12:30 Temp 101.5 Pulse 118 132 Resp 40 B/P (MAP) 146/73 (97) 153/65 (94) Pulse Ox 99 97 FiO2 40 02/09/25 02/09/25 02/09/25 02/09/25 12:45 12:53 13:00 13:15 Pulse 124 128 124 Resp B/P (MAP) 149/75 (99) 152/66 (94) 144/68 (93) Pulse Ox 99 98 98 FiO2 40 02/09/25 02/09/25 02/09/25 02/09/25 13:30 13:45 14:00 14:15 Pulse 123 121 119 116 Resp 28 26 30 27 B/P (MAP) 139/77 (97) 155/79 (104) 151/77 (101) 134/62 (86) Pulse Ox 98 98 98 99 02/09/25 02/09/25 02/09/25 02/09/25 14:19 14:30 14:45 15:00 Pulse 115 119 117 114 Resp 24 30 29 38 B/P (MAP) 138/67 (90) 136/64 (88) 127/59 (81) Pulse Ox 99 99 96 02/09/25 02/09/25 02/09/25 02/09/25 15:11 15:15 15:30 15:45 Pulse 116 112 110 105 Resp 39 21 33 B/P (MAP) 125/52 (76) 114/60 (78) 117/59 (78) Pulse Ox 96 95 94 FiO2 40 02/09/25 02/09/25 02/09/25 02/09/25 16:00 16:00 16:00 16:15 Temp 100.0 Pulse 101 106 Resp 27 24 B/P (MAP) 114/53 (73) 124/88 (100) Pulse Ox 99 94 95 O2 Delivery Ventilator+ Ventilator FiO2 40 40 02/09/25 02/09/25 02/09/25 02/09/25 16:17 16:30 16:45 17:00 Pulse 112 114 117 Resp 64 35 28 B/P (MAP) 128/56 (80) 133/52 (79) 133/55 (81) Pulse Ox 99 99 98 FiO2 40 02/09/25 02/09/25 02/09/25 02/09/25 17:15 17:30 17:45 18:00 Pulse 112 112 115 112 Resp 25 25 32 B/P (MAP) 129/64 (85) 131/58 (82) 130/62 (84) 132/62 (85) Pulse Ox 98 98 98 98 02/09/25 18:39 Pulse 110 FiO2 40 Intake & Output (last 24hrs) 02/08/25 02/08/25 02/09/25 15:00 23:00 07:00 Intake Total 1462.4 ml 1164.6 ml 1323.3 ml Output Total 1000 ml 1000 ml 1300 ml Balance 462.4 ml 164.6 ml 23.3 ml LABS: Laboratory: Test 02/09/25 14:33 12/4/25 13:39 02/09/25 11:03 02/09/25 04:24 Range/Units Whole Blood Glucose 134 H 70-110 MG/DL Lactic Acid Level 4.3 H 0.8-2.5 mmol/L Blood Gas Specimen Type Arterial Arterial Blood pH 7.429 7.350-7.450 Arterial Blood Partial Pressure CO2 35 35-48 mmHg Arterial Blood Partial Pressure O2 89.5 83.0-108.0 mmHg Arterial Blood HCO3 22.4 21.0-28.0 mmol/L Arterial Blood Oxygen Saturation 97.1 94.0-98.0 % Arterial Blood Base Excess -1.2 -2.0-3.0 mmol/L Blood Gas Temperature 37.0 35.5-37.0 CELSIUS Blood Gas Vent Mode CPAP PS10 ROOM AIR FiO2 40.0 % Blood Gas PEEP 5 cm H2O Blood Gas Specimen Comment RR AKASH White Blood Count 8.4 4.8-10.8 K/uL Red Blood Count 2.98 L 4.50-6.20 MIL/uL Hemoglobin 8.2 L 14.0-18.0 g/dL Hematocrit 25.1 L 42-54 % Mean Corpuscular Volume 84.2 79-99 fL Mean Corpuscular Hemoglobin 27.5 27.0-33.0 pg Mean Corpuscular Hemoglobin Concent 32.7 32.0-36.0 g/dL Red Cell Distribution Width 13.4 11.0-15.5 % Platelet Count 223 130-400 K/uL Mean Platelet Volume 10.5 7.5-10.5 fL Immature Granulocyte % (Auto) 4.0 H 0-1 % Neutrophils (%) (Auto) 94.1 H 40.0-77.0 % Lymphocytes (%) (Auto) 1.2 L 21.0-51.0 % Monocytes (%) (Auto) 0.7 L 3.0-13.0 % Eosinophils (%) (Auto) 0.0 0.0-8.0 % Basophils (%) (Auto) 0.0 0.0-5.0 % Neutrophils # (Auto) 7.9 H 1.8-7.7 K/uL Lymphocytes # (Auto) 0.1 L 1.0-4.8 K/uL Monocytes # (Auto) 0.1 0.1-1.0 K/uL Eosinophils # (Auto) 0.00 0.00-0.70 K/uL Basophils # (Auto) 0.00 0.00-0.20 K/uL Absolute Immature Granulocyte (auto 0.34 0-1 K/uL Nucleated Red Blood Cells 0.4 H 0.0-0.19 % White Cell Morphology Comment CONSISTENT W/DIFF Sodium Level 137 136-145 mmol/L Potassium Level 5.3 H 3.5-5.1 mmol/L Chloride Level 104 101-111 mmol/L Carbon Dioxide Level 23 21-32 mmol/L Blood Urea Nitrogen 51 H 7-18 mg/dL Creatinine 2.1 H 0.5-1.3 mg/dL Glomerular Filtration Rate Calc 40 >90 mL/min Random Glucose 136 H 70-105 mg/dL Total Calcium 7.5 L 8.5-10.1 mg/dL Phosphorus Level 3.3 2.5-4.9 mg/dL Magnesium Level 2.10 1.80-2.40 mg/dL Total Bilirubin 0.5 # 0.2-1.0 mg/dL Aspartate Amino Transf (AST/SGOT) 60 H 10-37 U/L Alanine Aminotransferase (ALT/SGPT) 35 # 12-78 U/L Alkaline Phosphatase 119 50-136 U/L C-Reactive Protein, Quantitative 6.60 H 0.5-3.0 mg/L Total Protein 5.7 L 6.0-8.3 g/dL Albumin 1.4 L 3.5-5.0 g/dL Procalcitonin 0.21 0.05-0.5 ng/mL Test 02/08/25 15:22 02/08/25 05:09 02/08/25 03:57 Range/Units Hemoglobin (Blood Gas) 10.3 L 13.5-17.5 g/dL Sodium (Blood Gas) 136 136-145 MMOL/L Bedside Potassium (Blood Gas) 5.0 H 3.4-4.5 MMOL/L Bedside Chloride (Blood Gas) 103 98-107 MMOL/L Bedside Glucose (Blood Gas) 223 H 65-95 MG/DL Bedside Ionized Calcium (Blood Gas) 1.15 1.15-1.33 MMOL/L Bedside Lactic Acid (Blood Gas) 4.74 *H 0.36-0.75 MMOL/L Blood Gas CPAP 5 cm H2O Segmented Neutrophils % 92 H 40-70 % Band Neutrophils % 3 H 0-2 % Lymphocytes % (Manual) 2 L 22-44 % Metamyelocytes % 3 H 0-0 % Differential Comment MANUAL DIFFERENTIAL Platelet Morphology Comment See comments Red Blood Cell Morphology See comments Ferritin 193 H 30-400 ng/mL Blood Gas Respiration Rate 20.0 min. Blood Gas Tidal Volume 500 ml ASSESSMENT: Acute hypoxic and hypercapnic respiratory failure, s/p intubation. Multifocal pneumonia. Suspected advanced stage HIV, not on anti-retroviral therapy, POA. Suspected Pneumocystis pneumonia, ruled out. Sepsis. Acute renal failure. Oral candidiasis. Morbid obesity. PLAN: Continue Bactrim IV. Continue fluconazole IV. Continue doxycycline IV. Continue cefepime. Continue GI prophylaxis. Continues on mechanical ventilatory support. Continue critical care support. Case management coordinating with [facility] for HIV medication jessica [email or web address]. This case was reviewed and discussed with my supervising physician Dr. Sigala and the above assessment and plan was formulated and agreed upon. ATTESTATION BY PHYSICIAN I have seen and examined the patient. I reviewed the documentation, medical decision making, and treatment plan as noted by the mid-level provider above. I agree with the findings and plan of care. MIRZA SIGALA MD, M[facility]TA L [facility] Feb 09, 2025 19:23
[2025-02-09] MEDS: BALSAM PERU/CASTOR OIL 60 GM TUBE TP SCH (21:26)
[2025-02-10] VITALS (105 sets, daily range): BP systolic 96–162; BP diastolic 40–96; PULSE 86–117; RESP 16–39; TEMP 98.6–101.2; O2SAT 94–99
[2025-02-10 05:04] LABS: IMMATURE GRANULOCYTE ABSOLUTE 0.64 K/uL (0-1); NUCLEATED RED BLOOD CELLS 0.2 % (0.0-0.19); PLATELET COUNT (AUTO) 244 K/uL (130-400); RED BLOOD CELL COUNT(AUTO) 3.41 MIL/uL (4.50-6.20); RED CELL DISTRIBUTION WIDTH 13.6 % (11.0-15.5); WHITE BLOOD COUNT (AUTO) 13.1 K/uL (4.8-10.8)
[2025-02-10 05:25] LABS: ASPARTATE AMINOTRANSFERASE 103.0 U/L (10-37); CREATININE 2.1 mg/dL (0.5-1.3); GLOMERULAR FILTR. RATE CALC 40.0 mL/min (>90); GLUCOSE,RANDOM 99.0 mg/dL (70-105); SODIUM SERUM 133.0 mmol/L (136-145); TOTAL PROTEIN, SERUM 6.3 g/dL (6.0-8.3); UREA NITROGEN, BLOOD 58.0 mg/dL (7-18)
[2025-02-10 05:42] LABS: LYMPHOCYTES % (MANUAL) 3 % (22-44); MAN.DIFF COMMENT-IMPRESSION MANUAL DIFFERENTIAL; MONOCYTES % (MANUAL) 1 % (2-9); PLATELET MORPHOLOGY COMMENT ADEQUATE; SEGMENTED NEUTROPHILS % 96 % (40-70)
[2025-02-10] MEDS ORDERED: 0.9%NACL 50ML IV SCH (06:00)
[2025-02-10] MEDS: SODIUM BICARB 50MEQ 50ML VIAL IV ONE (06:10)
[2025-02-10] MEDS: CALCIUM GLUC 1GM/10ML VIAL IVPB SCH (06:26)
--- NOTE | 2025-02-10 10:31 | PN ---
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 is to wean off Precedex today, try spontaneous breathing trials and extubate. Continue Solu-Medrol 40mg IV bid DuoNeb inhalation q.4h Pulmonology on board, we will continue to follow the recommendations Suspected Pneumocystis Jirovecii Pneumonia (PJP )POA Chest x-ray on presentation showed diffuse bilateral pneumonia with ARDS type picture CT chest showed bilateral airspace opacities involving nearly entire lung curtis raising concern for severe diffuse pneumonia/ARDS like pattern Continue fluconazole 200 mg IV Q 24 , TMP SMX q.6 Continue on IV cefepime2 g q.12h , doxycycline q.12h IV Pulmonology, Infectious Disease on board. We will follow their recommendations. Suspected undiagnosed HIV infection POA Patient had history of on unsafe sexual practices with multiple partners reported by her sister HIV1 and 2 Ab, HIV P 24 Ag evaluation showed preliminary positive for both HIV1 and 2 antigen/antibody, 4th gen preliminary reactive Absolute CD4 count 19, CD4/CD8 ratio 0.04 HIV 1RNA PCR showed a viral load of [id number] Infectious Disease started Isentress 400 mg b.i.d., travuda tablet p.o. daily on 02/10/[address] working with [facility] for HIV management. ID on board. Systemic inflammatory response with organ dysfunction due to suspected infection POA On presentation to ED patient's temperature 100.2, pulse 112, respiratory rate 28, lactic acid 2, protocol 1.55 Chest x-ray showed diffuse bilateral pneumonia with ARDS type picture CT chest showed bilateral airspace opacities involving nearly entire lung curtis raising concern for severe diffuse pneumonia/ARDS like pattern Continue fluconazole 200 mg IV Q 24 , TMP SMX q.6 Continue on IV cefepime2 g q.12h , continue doxycycline q.12h IV Lactic acid today 3.6 We will trend white count, lactic acid Uncontrolled hyperglycemia secondary to steroids Blood glucose in the morning was 322 and well elevated likely from steroids. Continue to monitor the blood glucose level. Continue insulin sliding scale. Tuberculosis R/O POA 3 out of 3 sputum samples collected for AFB smear. Sputum sample is sent for respiratory culture, we will follow up with the culture results. No acid-fast bacilli in smear from first 2 samples, studies to continue. GI prophylaxis with Pepcid 20 mg IV DVT prophylaxis with heparin 5000 SQ q.12h ATTESTATION BY PHYSICIAN I have seen and examined the patient. I reviewed the documentation, medical decision making, and treatment plan as noted by the resident physician above. I agree with the findings and plan of care. DIANN MITCHELL MD, ADIL SHAH QUADRI MD Feb 10, 2025 10:31
--- NOTE | 2025-02-10 11:11 | PN ---
[facility] PROGRESS NOTE Date Patient Seen: Feb 10, 2025 Time of Visit: 11:05 Supervising Physician: [Dr. Abdul ] Primary Care Physician: [Avi LESTER] Outpatient Specialists: [ ] Inpatient Consults: [Dr. Sigala-ID, [facility] team-ICU] PROBLEM LIST: Acute hypoxemic and hypercarbic respiratory failure ARDS Community-acquired pneumonia suspected Pneumocystis Toxic metabolic encephalopathy on admission Acute sepsis on admission without septic shock secondary to community-acquired pneumonia HIV positive newly diagnosed stage IV. Not on anti-retroviral medication CD4 count: 19 Immunocompromise status Obstructive sleep apnea, untreated/undiagnosed Morbid obesity, BMI 33.6 JUAN Volume overload INTERVAL HISTORY: Patient seen and examined all labs have been reviewed. No family at bedside Fever reported by nursing Patient appears comfortable, on Precedex Patient continues on Ventilator support, settings at 40% FiO2 with a PEEP of 5. Sputum cultures positive for Klebsiella pneumoniae and MSSA Plan: Wean of sedation SBTS today K5.9 Lokelma Blood and sputum cultures Continue on Cefepime, Doxy, Bactrim, and fluconazole per ID. Follow nephrology recommendations, avoid and nephrotoxic medications. Follow daily chest x-ray and labs. CM to help coordinate HIV medication management. Total critical care time spent 40 minutes, this excludes any procedures performed or any time spent in educational or teaching. REVIEW OF SYSTEMS: Patient on Precedex drip, unable to obtain information from patient. PHYSICAL EXAM: Obese GENERAL: on Vent assistance, responding to self HEENT: EOMI, Sclera non icteric, moist mucosa NECK: Supple, no JVD, trachea midline LUNGS: Fine crackles bilaterally. HEART: Regular rate and rhythm. Normal S1 and S2, without murmurs ABD: Abdomen soft, nontender. Bowel sounds present, obese EXT: No clubbing cyanosis or edema : Dias in situ NEURO: sedated Vital Signs (last 8hr) Date Time Temp Pulse Resp B/P (MAP) Pulse Ox O2 Delivery O2 Flow Rate FiO2 02/10/25 09:50 105 28 02/10/25 09:45 105 40 02/10/25 07:00 106 26 117/57 (77) 97 02/10/25 06:45 106 26 111/58 (75) 97 02/10/25 06:34 110 22 02/10/25 06:30 117 27 141/69 (93) 99 02/10/25 06:29 110 40 02/10/25 06:15 110 25 141/72 (95) 99 02/10/25 06:00 104 25 139/75 (96) 98 02/10/25 05:45 106 27 137/76 (96) 98 02/10/25 05:30 99 24 114/59 (77) 97 02/10/25 05:15 105 26 147/80 (102) 98 02/10/25 05:00 106 23 145/81 (102) 98 02/10/25 04:45 103 24 143/82 (102) 98 02/10/25 04:45 101.1 Ventilator 40 02/10/25 04:30 98 22 139/73 (95) 98 02/10/25 04:17 40 02/10/25 04:15 104 25 140/75 (96) 98 02/10/25 04:00 98 Ventilator+ 40 02/10/25 04:00 105 24 138/76 (96) 98 02/10/25 03:45 99 22 123/58 (79) 97 02/10/25 03:30 105 25 141/70 (93) 98 02/10/25 03:15 105 23 142/75 (97) 98 LABS: Hematology Labs: Test 02/10/25 04:51 Range/Units White Blood Count 13.1 H 4.8-10.8 K/uL Red Blood Count 3.41 L 4.50-6.20 MIL/uL Hemoglobin 9.4 L 14.0-18.0 g/dL Hematocrit 28.3 L 42-54 % Mean Corpuscular Volume 83.0 79-99 fL Mean Corpuscular Hemoglobin 27.6 27.0-33.0 pg Mean Corpuscular Hemoglobin Concent 33.2 32.0-36.0 g/dL Red Cell Distribution Width 13.6 11.0-15.5 % Platelet Count 244 130-400 K/uL Mean Platelet Volume 9.8 7.5-10.5 fL Immature Granulocyte % (Auto) 4.9 H 0-1 % Neutrophils (%) (Auto) 92.1 H 40.0-77.0 % Lymphocytes (%) (Auto) 2.0 L 21.0-51.0 % Monocytes (%) (Auto) 0.8 L 3.0-13.0 % Eosinophils (%) (Auto) 0.0 0.0-8.0 % Basophils (%) (Auto) 0.2 0.0-5.0 % Neutrophils # (Auto) 12.1 H 1.8-7.7 K/uL Lymphocytes # (Auto) 0.3 L 1.0-4.8 K/uL Monocytes # (Auto) 0.1 0.1-1.0 K/uL Eosinophils # (Auto) 0.00 0.00-0.70 K/uL Basophils # (Auto) 0.02 0.00-0.20 K/uL Absolute Immature Granulocyte (auto 0.64 0-1 K/uL Segmented Neutrophils % 96 H 40-70 % Lymphocytes % (Manual) 3 L 22-44 % Monocytes % (Manual) 1 L 2-9 % Nucleated Red Blood Cells 0.2 H 0.0-0.19 % Differential Comment MANUAL DIFFERENTIAL White Cell Morphology Comment Platelet Morphology Comment ADEQUATE Red Blood Cell Morphology HYPOCHROM CELLS 1+ Chemistry Labs: Test 02/10/25 08:28 02/10/25 07:44 02/10/25 04:51 02/09/25 04:24 Range/Units Potassium Level 5.9 H 3.5-5.1 mmol/L Lactic Acid Level 3.6 H 0.8-2.5 mmol/L Whole Blood Glucose 88 70-110 MG/DL Sodium Level 133 L 136-145 mmol/L Chloride Level 99 L 101-111 mmol/L Carbon Dioxide Level 24 21-32 mmol/L Blood Urea Nitrogen 58 H 7-18 mg/dL Creatinine 2.1 H 0.5-1.3 mg/dL Glomerular Filtration Rate Calc 40 >90 mL/min Random Glucose 99 70-105 mg/dL Total Calcium 8.4 L 8.5-10.1 mg/dL Total Bilirubin 0.6 0.2-1.0 mg/dL Aspartate Amino Transf (AST/SGOT) 103 H 10-37 U/L Alanine Aminotransferase (ALT/SGPT) 50 12-78 U/L Alkaline Phosphatase 152 H 50-136 U/L Total Protein 6.3 6.0-8.3 g/dL Albumin 1.6 L 3.5-5.0 g/dL Phosphorus Level 3.3 2.5-4.9 mg/dL Magnesium Level 2.10 1.80-2.40 mg/dL C-Reactive Protein, Quantitative 6.60 H 0.5-3.0 mg/L Procalcitonin 0.21 0.05-0.5 ng/mL DIAGNOSTICS / RADIOLOGY RESULTS: [ ] NEURO: Minimize central acting medications as possible. Fall Precautions. Well lighted room through the day and minimize interruptions through the night to prevent acute delirium. PULMONARY: Supplemental 02 as needed Titrate Fio2 to keep Spo2 > or = 90% DuoNebs and CPT as needed IS hourly while awake for pulmonary hygiene Out of bed to chair as tolerated VAP Bundle Vent/BIPAP Settings: [ BIPAP setting 12/11 rate of 18 FiO2 60%. ] CARDIOVASCULAR: Follow hemodynamics. Titrate vasopressor to keep MAP >65 or systolic blood pressure >95mmHg DRIPS: [Precedex ] LINES: [PIV] GI & NUTRITION: Continue nutritional support Aspirations precautions Prokinetic agents and laxatives as needed KIDNEYS & ELECTROLYTES: Strict monitoring of intake and output Daily weights Avoid nephrotoxic agents Monitor electrolytes and replace as needed Dias care-prevent CAUTI per nursing Goal urine output of 30mL/hr or 0.5mL/kg/hr Urine output: [ ] Fluid Balance: [ ] ENDOCRINE: Maintain blood glucose between 100-180 at all times. Insulin sliding scale for blood glucose management INFECTIOUS DISEASE: Trend temperature. Lara-culture if febrile. Micro: [ ] Antibiotics: [Vancomycin 01/30- IV Fluconazole: 01/30- IV Sulfa/TMP: 01/30-] HEMATOLOGY & COAGULATION: Monitor H&H. Keep Hgb > 7 Transfuse 1 unit of PRBC for Hgb < 7 Transfuse 1 pack of platelets of platelets < 20, 000 Watch for any signs and symptoms of bleeding SKIN: Pressure ulcer prevention per facility protocol Rehab: PT/OT Prophylaxis: GI: [Pepcid] DVT: [Heparin ] Code Status: Full Resuscitation Disposition: [ICU ] NETO [facility] Feb 10, 2025 11:10
[2025-02-10] MEDS ORDERED: PHARMACY COMMUNICATION MISC SCH (14:00)
--- NOTE | 2025-02-10 14:11 | HMCIMG ---
EXAM: CR Chest, 1 View. CLINICAL HISTORY: Endotracheal tube. COMPARISON: 02/09/2025 FINDINGS: The endotracheal tube is seen with its tip terminating about 5.6 cm above the catina. The nasogastric tube is seen in the left hemidiaphragm; the tip is not visualized. LUNGS: Mild interval reduction in the aeration of both lungs. PLEURAL SPACES: No definite pleural effusion or pneumothorax. MEDIASTINUM: Cardiac size is stable. BONES: No aggressive appearing osseous lesion seen. IMPRESSION: 1. Endotracheal tube tip 5.6 cm above the catina. 2. Mild interval reduction in the aeration of both lungs. /[place]
[2025-02-10] MEDS: NA ZIRCON CYCLOSIL(LOKELMA 10GM) PO SCH (14:28)
--- NOTE | 2025-02-10 14:29 | NUR ---
Patient's oxygen saturation is 88% at this time. I relayed this information to Subhash LESTER. Subhash LESTER said to increase PEEP from 5 to 8. Patient currently on a PEEP of 8.
--- NOTE | 2025-02-10 14:59 | NUR ---
As per Dr. Sigala, Bactrim will be resumed. I communicated with the pharmacist to take Bactrim off of hold.
[2025-02-10] MEDS: EMTRICITABINE/TENOFOVIR 200/300 MG TAB PO SCH (15:15)
--- NOTE | 2025-02-10 15:18 | PN ---
INFECTIOUS DISEASE PROGRESS NOTE Date of Service: Feb 10, 2025 SUBJECTIVE: This 44-year-old male patient is being seen today. Patient remains in the ICU, on vent support. He continues on Precedex drip. He remains on multiple antibiotics. We are being told [facility] is unable to supply antiviral medication to patient do to him not being an establish patient. Patient will be started on antiviral medications. He continues on Bactrim, doxycycline and fluconazole. Went over plan of care with family at bedside, state understanding. PHYSICAL EXAM EYES: Anicteric. Pupils equal and reactive. HENT: Dry Oral mucosa. Oral thrush. NGT. NECK: Supple, no JVD or thyromegaly. LUNGS: On mechanical ventilatory support. CARDIOVASCULAR: S1, S2 regular. No murmur heard. ABDOMEN: Soft, non tender, bowel sounds present, no organomegaly. CENTRAL NERVOUS SYSTEM: Intubated. SKIN: Rash on abdomen and lower extremities. LYMPHATICS: No peripheral lymphadenopathy MUSCULOSKELETAL: No joint swelling, erythema or tenderness. EXTREMITIES: No cyanosis or clubbing. Weakness. BACK: No deformity, no pressure ulcer. GENITOURINARY: No dysuria or hematuria. Dias catheter. Vital Sign (Last 12 Hours) 02/10/25 02/10/25 02/10/25 02/10/25 03:15 03:30 03:45 04:00 Pulse 105 105 99 105 Resp B/P (MAP) 142/75 (97) 141/70 (93) 123/58 (79) 138/76 (96) Pulse Ox 98 98 97 98 02/10/25 02/10/25 02/10/25 02/10/25 04:00 04:15 04:17 04:30 Pulse 104 98 Resp B/P (MAP) 140/75 (96) 139/73 (95) Pulse Ox 98 98 98 O2 Delivery Ventilator+ FiO2 40 40 02/10/25 02/10/25 02/10/25 02/10/25 04:45 04:45 05:00 05:15 Temp 101.1 Pulse 103 106 105 Resp B/P (MAP) 143/82 (102) 145/81 (102) 147/80 (102) Pulse Ox 98 98 98 O2 Delivery Ventilator FiO2 40 02/10/25 02/10/25 02/10/25 02/10/25 05:30 05:45 06:00 06:15 Pulse 99 106 104 110 Resp 25 B/P (MAP) 114/59 (77) 137/76 (96) 139/75 (96) 141/72 (95) Pulse Ox 97 98 98 99 02/10/25 02/10/25 02/10/25 02/10/25 06:29 06:30 06:34 06:45 Pulse 110 117 110 106 Resp B/P (MAP) 141/69 (93) 111/58 (75) Pulse Ox 99 97 FiO2 40 02/10/25 02/10/25 02/10/25 02/10/25 07:00 07:15 07:30 07:45 Pulse 106 105 107 103 Resp B/P (MAP) 117/57 (77) 122/65 (84) 132/66 (88) 122/66 (84) Pulse Ox 97 97 98 97 02/10/25 02/10/25 02/10/25 02/10/25 08:00 08:00 08:00 08:00 Temp 98.6 Pulse 106 Resp B/P (MAP) 137/70 (92) Pulse Ox 98 98 O2 Delivery Ventilator+ Ventilator FiO2 40 40 40 02/10/25 02/10/25 02/10/25 02/10/25 08:15 08:30 08:45 09:00 Pulse 104 107 105 102 Resp B/P (MAP) 136/70 (92) 134/72 (92) 131/69 (89) 130/66 (87) Pulse Ox 98 98 98 98 02/10/25 02/10/25 02/10/25 02/10/25 09:15 09:30 09:45 09:45 Pulse 102 101 105 103 Resp B/P (MAP) 130/66 (87) 128/64 (85) 134/71 (92) Pulse Ox 98 97 98 FiO2 40 02/10/25 02/10/25 02/10/25 02/10/25 09:50 10:00 10:15 10:30 Pulse 105 103 101 103 Resp 27 B/P (MAP) 133/69 (90) 119/57 (77) 131/69 (89) Pulse Ox 99 99 99 02/10/25 02/10/25 02/10/2502/10/25 10:45 11:00 11:15 11:30 Pulse 100 94 90 99 Resp 27 29 29 16 B/P (MAP) 135/70 (91) 119/57 (77) 96/40 (58) 107/45 (65) Pulse Ox 94 92 94 94 02/10/25 02/10/25 02/10/25 02/10/25 11:45 12:00 12:00 12:00 Pulse 88 91 Resp 24 26 B/P (MAP) 99/48 (65) 116/57 (76) Pulse Ox 94 94 94 O2 Delivery Ventilator+ FiO2 40 40 02/10/25 02/10/25 02/10/25 02/10/25 12:00 12:02 12:15 15:01 Temp 100.2 Pulse 111 92 97 Resp 25 28 B/P (MAP) 121/63 (82) Pulse Ox 94 O2 Delivery Ventilator FiO2 40 40 Intake & Output (last 24hrs) 02/09/25 02/09/25 02/10/25 15:00 23:00 07:00 Intake Total 1171.6 ml 965.0 ml 1173.0 ml Output Total 1900 ml 2500 ml Balance 1171.6 ml -935.0 ml -1327.0 ml LABS: Laboratory: Test 02/10/25 14:09 02/10/25 11:42 02/10/25 08:28 02/10/25 04:51 Range/Units Potassium Level 5.7 H 3.5-5.1 mmol/L Whole Blood Glucose 100 70-110 MG/DL Lactic Acid Level 3.6 H 0.8-2.5 mmol/L White Blood Count 13.1 H 4.8-10.8 K/uL Red Blood Count 3.41 L 4.50-6.20 MIL/uL Hemoglobin 9.4 L 14.0-18.0 g/dL Hematocrit 28.3 L 42-54 % Mean Corpuscular Volume 83.0 79-99 fL Mean Corpuscular Hemoglobin 27.6 27.0-33.0 pg Mean Corpuscular Hemoglobin Concent 33.2 32.0-36.0 g/dL Red Cell Distribution Width 13.6 11.0-15.5 % Platelet Count 244 130-400 K/uL Mean Platelet Volume 9.8 7.5-10.5 fL Immature Granulocyte % (Auto) 4.9 H 0-1 % Neutrophils (%) (Auto) 92.1 H 40.0-77.0 % Lymphocytes (%) (Auto) 2.0 L 21.0-51.0 % Monocytes (%) (Auto) 0.8 L 3.0-13.0 % Eosinophils (%) (Auto) 0.0 0.0-8.0 % Basophils (%) (Auto) 0.2 0.0-5.0 % Neutrophils # (Auto) 12.1 H 1.8-7.7 K/uL Lymphocytes # (Auto) 0.3 L 1.0-4.8 K/uL Monocytes # (Auto) 0.1 0.1-1.0 K/uL Eosinophils # (Auto) 0.00 0.00-0.70 K/uL Basophils # (Auto) 0.02 0.00-0.20 K/uL Absolute Immature Granulocyte (auto 0.64 0-1 K/uL Segmented Neutrophils % 96 H 40-70 % Lymphocytes % (Manual) 3 L 22-44 % Monocytes % (Manual) 1 L 2-9 % Nucleated Red Blood Cells 0.2 H 0.0-0.19 % Differential Comment MANUAL DIFFERENTIAL White Cell Morphology Comment Platelet Morphology Comment ADEQUATE Red Blood Cell Morphology HYPOCHROM CELLS 1+ Sodium Level 133 L 136-145 mmol/L Chloride Level 99 L 101-111 mmol/L Carbon Dioxide Level 24 21-32 mmol/L Blood Urea Nitrogen 58 H 7-18 mg/dL Creatinine 2.1 H 0.5-1.3 mg/dL Glomerular Filtration Rate Calc 40 >90 mL/min Random Glucose 99 70-105 mg/dL Total Calcium 8.4 L 8.5-10.1 mg/dL Total Bilirubin 0.6 0.2-1.0 mg/dL Aspartate Amino Transf (AST/SGOT) 103 H 10-37 U/L Alanine Aminotransferase (ALT/SGPT) 50 12-78 U/L Alkaline Phosphatase 152 H 50-136 U/L Total Protein 6.3 6.0-8.3 g/dL Albumin 1.6 L 3.5-5.0 g/dL Test 02/09/25 11:03 02/09/25 04:24 02/08/25 15:22 Range/Units Blood Gas Specimen Type Arterial Arterial Blood pH 7.429 7.350-7.450 Arterial Blood Partial Pressure CO2 35 35-48 mmHg Arterial Blood Partial Pressure O2 89.5 83.0-108.0 mmHg Arterial Blood HCO3 22.4 21.0-28.0 mmol/L Arterial Blood Oxygen Saturation 97.1 94.0-98.0 % Arterial Blood Base Excess -1.2 -2.0-3.0 mmol/L Blood Gas Temperature 37.0 35.5-37.0 CELSIUS Blood Gas Vent Mode CPAP PS10 ROOM AIR FiO2 40.0 % Blood Gas PEEP 5 cm H2O Blood Gas Specimen Comment RR AKASH Phosphorus Level 3.3 2.5-4.9 mg/dL Magnesium Level 2.10 1.80-2.40 mg/dL C-Reactive Protein, Quantitative 6.60 H 0.5-3.0 mg/L Procalcitonin 0.21 0.05-0.5 ng/mL Hemoglobin (Blood Gas) 10.3 L 13.5-17.5 g/dL Sodium (Blood Gas) 136 136-145 MMOL/L Bedside Potassium (Blood Gas) 5.0 H 3.4-4.5 MMOL/L Bedside Chloride (Blood Gas) 103 98-107 MMOL/L Bedside Glucose (Blood Gas) 223 H 65-95 MG/DL Bedside Ionized Calcium (Blood Gas) 1.15 1.15-1.33 MMOL/L Bedside Lactic Acid (Blood Gas) 4.74 *H 0.36-0.75 MMOL/L Blood Gas CPAP 5 cm H2O ASSESSMENT: Acute hypoxic and hypercapnic respiratory failure, s/p intubation. Multifocal pneumonia. Suspected advanced stage HIV, not on anti-retroviral therapy, POA. Suspected Pneumocystis pneumonia, ruled out. Sepsis. Acute renal failure. Oral candidiasis. Morbid obesity. PLAN: Continue Bactrim IV. Continue fluconazole IV. Continue doxycycline IV. Continue cefepime. Continue GI prophylaxis. Continues on mechanical ventilatory support. Continue critical care support. Patient will be started on antiviral medication, HIV This case was reviewed and discussed with my supervising physician Dr. Sigala and the above assessment and plan was formulated and agreed upon. SERENA SIDDIQI [facility] Feb 10, 2025 15:18
--- NOTE | 2025-02-10 17:45 | PN ---
NEPHROLOGY PROGRESS NOTE Date/Time Patient Seen: Feb 10, 2025 Reason for Consultation: 17:44 SUBJECTIVE: This is a 44-year-old male with HIV positive newly diagnosed He was brought by EMS to the ED for complaints of shortness of breaths for the past two weeks. He has been in the hospital for several days He continues on antibiotics, including Bactrim, as per ID. He was noted to have elevated BUN/creatinine We are consulted for renal failure Renal function continues to worsen Electrolytes are noted He has been started on Lokelma BID Renal ultrasound showed partially distended bladder with no hydronephrosis or renal calculus He continues on Lasix, urine output was noted Tolerating Nepro tube feedings He was seen in the ICU, Continues to be intubated and sedated Family at the bedside Prognosis remains guarded REVIEW OF SYSTEMS: Difficult to obtain given status of the patient who remains intubated mechanically ventilated Vital Signs (last 8hr) Date Time Temp Pulse Resp B/P (MAP) Pulse Ox O2 Delivery O2 Flow Rate FiO2 02/10/25 16:00 96 Ventilator+ 40 02/10/25 16:00 40 02/10/25 16:00 99.3 Ventilator 40 02/10/25 15:45 98 31 133/77 (95) 96 02/10/25 15:37 97 40 02/10/25 15:30 101 32 144/81 (102) 96 02/10/25 15:15 99 31 139/82 (101) 96 02/10/25 15:01 97 28 02/10/25 15:00 98 29 136/79 (98) 97 02/10/25 14:45 97 36 135/76 (95) 94 02/10/25 14:30 97 32 133/78 (96) 95 02/10/25 14:15 96 39 131/77 (95) 96 02/10/25 14:00 96 29 130/70 (90) 94 02/10/25 13:45 94 27 127/72 (90) 95 02/10/25 13:30 99 18 129/72 (91) 95 02/10/25 13:15 94 26 130/75 (93) 96 02/10/25 13:00 93 24 123/66 (85) 94 02/10/25 12:45 94 27 127/72 (90) 96 02/10/25 12:30 86 29 99/51 (67) 95 02/10/25 12:15 92 25 121/63 (82) 94 02/10/25 12:02 111 40 02/10/25 12:00 100.2 Ventilator 40 02/10/25 12:00 40 02/10/25 12:00 94 Ventilator+ 40 02/10/25 12:00 91 26 116/57 (76) 94 02/10/25 11:45 88 24 99/48 (65) 94 02/10/25 11:30 99 16 107/45 (65) 94 02/10/25 11:15 90 29 96/40 (58) 94 02/10/25 11:00 94 29 119/57 (77) 92 02/10/25 10:45 100 27 135/70 (91) 94 02/10/25 10:30 103 27 131/69 (89) 99 02/10/25 10:15 101 24 119/57 (77) 99 02/10/25 10:00 103 26 133/69 (90) 99 02/10/25 09:50 105 28 02/10/25 09:45 103 27 134/71 (92) 98 02/10/25 09:45 105 40 PHYSICAL EXAM: General: acutely ill, sedated, intubated, and mechanically ventilated HEENT: head is atraumatic, pupils equal and reactive, ET tube in place Neck: supple, no masses, no lymphadenopathy, no thyromegaly, no JVD Lungs: decreased breath sounds bilaterally, symmetrical chest movement Cardio: regular rate, S1 and S2 normal, no rub or gallop Abdomen: soft, non tender, no distension, no organomegaly Extremities: trace edema bilateral lower extremities, no cyanosis or clubbing Skin: no rashes or suspicious lesions Neuro: sedated Current Medications Medications (Trade) Dose Ordered Sig/Amada Route Start Time Stop Time Status Last Admin Dose Admin Albuterol (DUOneb) 1 udvial [id number] IH 01/30/25 22:00 03/01/25 21:59 02/09/25 10:30 1 UDVIAL Cefepime HCl (MAXipime 2 gm vial) 2 gm Q12H IVPB 02/01/25 14:00 02/11/25 13:59 02/09/25 01:56 2 GM Dexmedetomidine/ Sodium Chloride (PRECEdex 400MCG/ 100ML-NS) 400 mcg PROTOCOL IV 02/04/25 23:45 03/06/25 23:44 02/09/25 05:56 400 MCG Doxycycline Hyclate 250 ml @ 125 mls/hr Q12H IV 01/31/25 14:00 02/10/25 13:59 02/09/25 01:56 125 MLS/HR Famotidine (Pepcid 20mg Vial) 20 mg DAILY IV 01/31/25 09:00 03/02/25 08:59 02/09/25 08:28 20 MG Fentanyl Citrate 100 ml @ 2.5 mls/hr PROTOCOL IV 02/05/25 11:30 02/05/25 19:59 DC 02/05/25 17:13 2.5 MLS/HR Fentanyl/Sodium Chloride 250 ml @ 0.1 mls/hr PROTOCOL IV 02/05/25 20:00 02/08/25 15:52 DC 02/07/25 22:11 0.1 MLS/HR Fluconazole/ Sodium Chloride (DiFLUCan 200 MG/ NS 100 ML) 200 mg DAILY22 IV 02/02/25 22:00 03/01/25 17:59 02/08/25 23:07 200 MG Fluconazole/ Sodium Chloride (DiFLUCan 200 MG/ NS 100 ML) 200 mg Q24H IV 01/30/25 18:00 02/02/25 14:38 DC 02/01/25 18:17 200 MG Furosemide (LASix 20MG VIAL) 20 mg Q8H IV 02/06/25 16:00 03/08/25 15:59 02/09/25 08:02 20 MG Furosemide (LASix 40MG VIAL) 20 mg ONCE STAT IV 01/31/25 05:37 01/31/25 05:40 DC 01/31/25 05:45 20 MG Heparin Sodium (Porcine) (HEParin 5,000 UNIT VIAL) 5,000 unit Q12H SQ 01/31/25 09:00 03/02/25 08:59 02/09/25 08:47 5,000 UNIT Insulin Glargine (LANtus 100 UNITS/ML 10 ML VIAL) 20 units BID SQ 02/04/25 21:00 02/06/25 14:49 DC 02/06/25 10:03 20 UNITS Insulin Glargine (LANtus 100 UNITS/ML 10 ML VIAL) 30 units BID SQ 02/06/25 21:00 03/08/25 20:59 02/09/25 08:36 30 UNITS Insulin Human Regular (humuLIN R 100 UNIT/ML 3ML) INSULIN SLIDING SCAL... ACHS SQ 02/07/25 16:30 02/07/25 11:56 DC Insulin Human Regular (humuLIN R 100 UNIT/ML 3ML) INSULIN SLIDING SCAL... Q6H6 SQ 01/31/25 06:00 02/07/25 11:55 DC 02/07/25 06:03 5 UNIT Insulin Human Regular (humuLIN R 100 UNIT/ML 3ML) INSULIN SLIDING SCAL... Q6H6 SQ 02/07/25 12:00 03/09/25 11:59 02/08/25 18:27 4 UNIT Methylprednisolone Sodium Succinate (Solu-medROL 40MG) 40 mg BID IVP 01/30/25 21:00 01/31/25 04:16 DC 01/30/25 21:18 40 MG Methylprednisolone Sodium Succinate (Solu-medROL 40MG) 40 mg BID IVP 02/07/25 21:00 03/09/25 20:59 02/09/25 08:28 40 MG Methylprednisolone Sodium Succinate (Solu-medROL 40MG) 40 mg Q8H IVP 01/31/25 04:30 02/02/25 11:57 DC 02/02/25 11:47 40 MG Methylprednisolone Sodium Succinate (Solu-medROL 40MG) 60 mg Q6H IVP 02/02/25 12:00 02/07/25 15:17 DC 02/07/25 11:27 60 MG Metoclopramide HCl (regLAN 10MG IV) 10 mg Q8H IVP 02/06/25 16:00 03/08/25 15:59 02/09/25 08:02 10 MG Morphine Sulfate (morPHINE 2MG SYG) 2 mg ONCE STAT IVP 01/31/25 05:41 01/31/25 05:45 DC 01/31/25 05:51 2 MG Multi-Ingred Cream/Lotion/Oil/ Oint (Artificial Tears Eye Oint) Apply ointment to both e... Q4H OU 01/31/25 15:00 03/02/25 14:59 02/09/25 06:37 1 APPL Norepinephrine Bitartrate (Norepineph 16 Mg/250ml NS Premix) sbp>90 PROTOCOL IV 02/05/25 11:30 03/07/25 11:29 Pharmacy Profile Note (Pharmacy Communication) 1 each ONCE MISC 02/05/25 11:30 02/05/25 11:23 DC Piperacillin Sod/ Tazobactam Sod (Zosyn 3.375gm+NS 50ml) 3.375 gm Q8H IVPB 01/31/25 09:30 01/31/25 12:56 DC 01/31/25 11:04 3.375 GM Piperacillin Sod/ Tazobactam Sod (Zosyn 3.375gm+NS 50ml) 3.375 gm ZOSY8 IVPB 01/31/25 13:00 02/01/25 13:33 DC 02/01/25 11:54 3.375 GM Polyethylene Glycol (MIRalax 3350 17 GM POWD.PACK) 17 gm DAILY PO 02/07/25 11:30 03/09/25 11:29 02/09/25 08:28 17 GM Sodium Bicarbonate (Sodium Bicarb 50meq 50ml Vial) 50 meq Q8H6 IV 02/06/25 14:00 02/07/25 16:00 DC 02/07/25 14:47 50 MEQ Sodium Chloride 1,000 ml @ 100 mls/hr Q10H IV 01/30/25 20:00 01/31/25 05:38 DC 01/30/25 21:18 100 MLS/HR Sodium Zirconium Cyclosilicate (Lokelma 10gm Powder) 10 gm BID PO 02/09/25 12:00 02/10/25 11:59 02/09/25 12:26 10 GM Trimethoprim/ Sulfamethoxazole 480 mg/Dextrose 500 ml @ 250 mls/hr Q6H IV 01/30/25 21:00 02/01/25 11:57 DC 02/01/25 02:49 250 MLS/HR Trimethoprim/ Sulfamethoxazole 480 mg/Dextrose 500 ml @ 250 mls/hr Q6H IV 02/01/25 12:00 02/11/25 11:59 02/09/25 12:21 250 MLS/HR Trimethoprim/ Sulfamethoxazole / Dextrose 100 ml @ 100 mls/hr AD IV 01/30/25 20:00 02/09/25 19:59 UNV Wound Care/ Dressing Products (Venelex Ointment) BID TP 02/09/25 21:00 03/11/25 20:59 LABORATORY: [ ] Hematology Labs: Test 02/10/25 04:51 Range/Units White Blood Count 13.1 H 4.8-10.8 K/uL Red Blood Count 3.41 L 4.50-6.20 MIL/uL Hemoglobin 9.4 L 14.0-18.0 g/dL Hematocrit 28.3 L 42-54 % Mean Corpuscular Volume 83.0 79-99 fL Mean Corpuscular Hemoglobin 27.6 27.0-33.0 pg Mean Corpuscular Hemoglobin Concent 33.2 32.0-36.0 g/dL Red Cell Distribution Width 13.6 11.0-15.5 % Platelet Count 244 130-400 K/uL Mean Platelet Volume 9.8 7.5-10.5 fL Immature Granulocyte % (Auto) 4.9 H 0-1 % Neutrophils (%) (Auto) 92.1 H 40.0-77.0 % Lymphocytes (%) (Auto) 2.0 L 21.0-51.0 % Monocytes (%) (Auto) 0.8 L 3.0-13.0 % Eosinophils (%) (Auto) 0.0 0.0-8.0 % Basophils (%) (Auto) 0.2 0.0-5.0 % Neutrophils # (Auto) 12.1 H 1.8-7.7 K/uL Lymphocytes # (Auto) 0.3 L 1.0-4.8 K/uL Monocytes # (Auto) 0.1 0.1-1.0 K/uL Eosinophils # (Auto) 0.00 0.00-0.70 K/uL Basophils # (Auto) 0.02 0.00-0.20 K/uL Absolute Immature Granulocyte (auto 0.64 0-1 K/uL Segmented Neutrophils % 96 H 40-70 % Lymphocytes % (Manual) 3 L 22-44 % Monocytes % (Manual) 1 L 2-9 % Nucleated Red Blood Cells 0.2 H 0.0-0.19 % Differential Comment MANUAL DIFFERENTIAL White Cell Morphology Comment Platelet Morphology Comment ADEQUATE Red Blood Cell Morphology HYPOCHROM CELLS 1+ Chemistry Labs: Test 02/10/25 14:09 02/10/25 11:42 02/10/25 08:28 02/10/25 04:51 Range/Units Potassium Level 5.7 H 3.5-5.1 mmol/L Whole Blood Glucose 100 70-110 MG/DL Lactic Acid Level 3.6 H 0.8-2.5 mmol/L Sodium Level 133 L 136-145 mmol/L Chloride Level 99 L 101-111 mmol/L Carbon Dioxide Level 24 21-32 mmol/L Blood Urea Nitrogen 58 H 7-18 mg/dL Creatinine 2.1 H 0.5-1.3 mg/dL Glomerular Filtration Rate Calc 40 >90 mL/min Random Glucose 99 70-105 mg/dL Total Calcium 8.4 L 8.5-10.1 mg/dL Total Bilirubin 0.6 0.2-1.0 mg/dL Aspartate Amino Transf (AST/SGOT) 103 H 10-37 U/L Alanine Aminotransferase (ALT/SGPT) 50 12-78 U/L Alkaline Phosphatase 152 H 50-136 U/L Total Protein 6.3 6.0-8.3 g/dL Albumin 1.6 L 3.5-5.0 g/dL Test 02/09/25 04:24 Range/Units Phosphorus Level 3.3 2.5-4.9 mg/dL Magnesium Level 2.10 1.80-2.40 mg/dL C-Reactive Protein, Quantitative 6.60 H 0.5-3.0 mg/L Procalcitonin 0.21 0.05-0.5 ng/mL DIAGNOSTICS / RADIOLOGY: [place] [address] IMAGING REPORT Signed PATIENT: CHARY HERNANDEZ MR#: [id number] : 1980 SEX: M AGE: 44 LOCATION: 2C ORDER 2300 STATUS: ADM IN REPORT#: [id number] SERVICE 0600 REASON: Respirateory failure ORDERING PHYSICIAN: NETO STARR PROCEDURE: CXR1VW - CHEST 1VW EXAM: CR Chest, 1 View. CLINICAL HISTORY: Respiratory failure COMPARISON: 02/08/2025 FINDINGS: The endotracheal tube is seen with its tip terminating about 5.4 cm above the catina. The nasogastric tube is seen in the left hemidiaphragm; the tip is not visualized. LUNGS: Essentially stable appearance of bilateral lung curtis, with persistent right basilar and diffuse left lung airspace disease. PLEURAL SPACES: No evidence of pleural effusion or pneumothorax. MEDIASTINUM: The cardiac size is stable. BONES: No aggressive appearing osseous lesion seen. IMPRESSION: 1. Endotracheal tube tip 5.4 cm above catina. 2. Nasogastric tube is demonstrated below the left hemidiaphragm; the tip is not visualized. 3. Essentially stable appearance of bilateral lung curtis, with persistent right basilar and diffuse left lung airspace disease. /[place] DICTATED BY: LARISSA LEMONS Jr., MD DATE: 02/09/251057 ELECTRONICALLY SIGNED BY: LARISSA LEMONS Jr., MD DATE: 02/09/251057 PATIENT: CHARY HERNANDEZ MR#: [id number] : 1980 SEX: M AGE: 44 LOCATION: [facility] ORDER 2300 STATUS: ADM IN REPORT#: [id number] SERVICE 0600 REASON: pp ORDERING PHYSICIAN: BIANCA WICK PAC PROCEDURE: CXR1VW - CHEST 1VW EXAM: CR Chest, 1 View. CLINICAL HISTORY: Follow up COMPARISON: 02/07/2025 FINDINGS: The endotracheal tube tip is 6.8 cm away from the catina. The nasogastric tube is seen below the left hemidiaphragm; the tip is not visualized. LUNGS: Essentially stable appearance of the bilateral lung curtis with mild bibasilar atelectasis and questionable small bilateral pleural effusions. PLEURAL SPACES: No evidence of pneumothorax. MEDIASTINUM: Cardiac size is stable. Mild stable pulmonary vascular congestion. BONES: No acute osseous abnormality. IMPRESSION: 1. Stable appearance of bilateral lung curtis with mild bibasilar atelectasis and questionable small bilateral pleural effusions. 2. Endotracheal tube tip 6.8 cm from catina. 3. Nasogastric tube below left hemidiaphragm, tip not visualized. /[place] DICTATED BY: LARISSA LEMONS Jr., MD DATE: 02/09/25 1110 ELECTRONICALLY SIGNED BY: LARISSA LEMONS Jr., MD DATE: 02/09/25 1110 PATIENT: CHARY HERNANDEZ MR#: [id number] : 1980 SEX: M AGE: 44 LOCATION: 2CH ORDER 2300 STATUS: ADM IN REPORT#: [id number] SERVICE 0600 REASON: pp ORDERING PHYSICIAN: BIANCA WICK PAC PROCEDURE: CXR1VW - CHEST 1VW EXAM: CR Chest, 2 View. CLINICAL HISTORY: Intubated. COMPARISON: 02/06/2025 FINDINGS: The endotracheal tube is seen with its tip terminating about 6.7 cm above the catina. The nasogastric tube terminates in the proximal stomach. LUNGS: Interval improvement in basilar predominant bilateral diffuse airspace disease is present. PLEURAL SPACES: No definite pleural effusion or pneumothorax. MEDIASTINUM: Cardiac size is stable. BONES: No aggressive appearing osseous lesion seen. IMPRESSION: 1. Interval improvement in bilateral basilar predominant airspace disease. 2. Endotracheal tube tip positioned 6.7 cm above catina. 3. The nasogastric tube terminates in the proximal stomach. /[place] DICTATED BY: LARISSA LEMONS Jr., MD DATE: 02/07/251748 ELECTRONICALLY SIGNED BY: LARISSA LEMONS Jr., MD DATE: 02/07/251748 PATIENT: CHARY HERNANDEZ MR#: [id number] : 1980 SEX: M AGE: 44 LOCATION: 2CH ORDER 1341 STATUS: ADM IN REPORT#: [id number] SERVICE 1337 REASON: JUAN ORDERING PHYSICIAN: DARBY PORRAS MD PROCEDURE: RENAL - US RENAL SONOGRAM EXAMINATION: ULTRASOUND OF THE RETROPERITONEUM. CLINICAL HISTORY: JUAN. COMPARISON: None. TECHNIQUE: Real-time grayscale ultrasound images of the kidneys. FINDINGS: The kidneys are normal in caliber, the right kidney measures 12.9 x 6.5 x 6.5 cm and the left kidney measures 11.0 x 5.6 x 5.5 cm in its craniocaudal, AP, and transverse dimensions respectively. There is normal renal cortical thickness, and cortical echogenicity. There is no renal calculus or hydronephrosis. The urinary bladder is partially distended with mild wall thickening (0.6 cm). There are no calculi in the urinary bladder. IMPRESSION: Urinary bladder wall thickening of concern for cystitis. /[place] DICTATED BY: LARISSA LEMONS Jr., MD DATE: 02/07/25716 ELECTRONICALLY SIGNED BY: LARISSA LEMONS Jr., MD DATE: 02/07/25716 PATIENT: CHARY HERNANDEZ MR#: [id number] : 1980 SEX: M AGE: 44 LOCATION: 2CH ORDER 1118 STATUS: ADM IN REPORT#: [id number] SERVICE 1145 REASON: post intubation ORDERING PHYSICIAN: COMPA PATRICK MD PROCEDURE: CXR1VW - CHEST 1VW EXAM: CR Chest, 2 View. CLINICAL HISTORY: post intubation COMPARISON: Radiograph from February 04, 2025 FINDINGS: Endotracheal tubes in satisfactory position, tip terminating 3.5 cm above the catina. Right PICC terminates overlying the SVC. Bibasilar airspace disease may reflect an infectious process. No pleural effusion or pneumothorax. Heart size is stable. Pulmonary vessels are within normal limits. IMPRESSION: 1. Endotracheal tube and right PICC line in satisfactory positions. 2. Bibasilar airspace disease, possibly infectious. /[place] DICTATED BY: LARISSA LEMONS Jr., MD DATE: 11/30/25 1409 ELECTRONICALLY SIGNED BY: LARISSA LEMONS Jr., MD DATE: 02/05/251408 PATIENT: CHARY HERNANDEZ MR#: [id number] : 1980 SEX: M AGE: 44 LOCATION: 2CH ORDER 9 STATUS: ADM IN REPORT#: [id number] SERVICE 8 REASON: ngt placement for TF ORDERING PHYSICIAN: ISAC MATHEW MD PROCEDURE: ABD 1VW - ABD 1VW EXAM: CR Abdomen, 1 View. CLINICAL HISTORY: ngt placement for TF COMPARISON: None provided. FINDINGS: BOWEL: The transverse colon is filled with gas and fecal content could be due to constipation Nasogastric tubes projecting below lthe eft hemidiaphragm in the stomach PERITONEUM/SOFT TISSUES: No free air evident. No pathologic appearing calcification. BONES: No acute osseous abnormality. IMPRESSION: The nasogastric tube is projected below the left hemidiaphragm over the stomach, tip is located in the body portion of the stomach Gas and fecal-loaded transverse colon consistent with constipation /[place] DICTATED BY: LARISSA LEMONS Jr., MD DATE: 02/03/251138 ELECTRONICALLY SIGNED BY: LARISSA LEMONS Jr., MD DATE: 02/03/251138 PATIENT: CHARY HERNANDEZ MR#: [id number] : 1980 SEX: M AGE: 44 LOCATION: 2CH ORDER 0432 STATUS: ADM IN REPORT#: [id number] SERVICE 042 REASON: hypoxia ORDERING PHYSICIAN: BIANCA GARCIA PROCEDURE: ECHO CMP - ECHO 2-D COMPLETE APPROVED REPORT EXAM: Two-dimensional and M-mode echocardiogram with Doppler and color Doppler. INDICATION ICD: R06.02 Shortness of breath 2D Dimensions RVDd 4.5 cm LVEF(%) 58.7 (>50%) LVED Vol(simp.) 152.0 mL IVSd 1.2 (0.7-1.1cm) FS(%) 32 % LVES Vol(simp.) 70.0 mL LVDd 6.1 (3.8-5.6cm) LA (2D) 4.0 (1.6-4.0cm) LVEF(%, simp.) 54 % PWd 0.8 (0.7-1.1cm) Ao Root(2D) 3.4 (2.0-3.7cm) LA ESV INDEX (BP) 26.38 mL/m2 IVSs 1.5 cm LVOT diam 2.7 (1.8-2.4cm) LVDs 4.1 (2.5-4.0cm) IVC diam 2.7 cm PWs 1.1 cm Deformation Strain Apical 4 -16.1 % Apical 2 -16.4 % Apical 3 -17.4 % Global Strain -16.6 % M-Mode Dimensions EPSS 0.3 cm LA (MM) 4.2 (1.6-4.0cm) Ao Root(MM) 4.0 (2.0-3.7cm) Aortic Valve AoV Vmax 1.4 m/s Ao Peak GR 7.3 mmHg LVOT Vmax 1.2 m/s AoV VTI 0.3 m Ao Mean GR 4.7 mmHg LVOT VTI 0.23 m MINH (VMAX) 5.28 cm2 MINH (VTI) 5.3 cm2 Mitral Valve MV E Vmax 88.4 cm/s DECEL Time 146 ms MV A Vmax 76.4 cm/s P 1/2 T 41 ms E/A ratio 1.2 MVA (PHT) 5.4 cm2 TDI E/E' Medial 10.2 E/E' Lateral 10.5 Medial E' Peak V 8.64 cm/s Lateral E' Peak V 8.43 cm/s Pulmonary Valve PV Vmax 0.8 m/s PV Peak GR 2.3 mmHg Tricuspid Valve TR Vmax 1.1 m/s RAP (EST) 8 mmHg RVSP 12.9 mmHg TR Peak GR 4.9 mmHg Left Ventricle The left ventricle is normal size. GLS -16.0% There is normal LV segmental wall motion. There is mild left ventricular wall thickness. LVEF is 55%. The LV diastolic function was unable to be assessed due to atrial arrhythmia. Right Ventricle The right ventricle is normal size. The right ventricular systolic function is normal. Atria The left atrium size is normal. The right atrium size is normal. Aortic Valve The aortic valve is normal in structure. No aortic regurgitation is present. There is no aortic valvular stenosis. Mitral Valve The mitral valve is normal in structure. There is trace of mitral valve regurgitation noted. There is no mitral valve stenosis. Tricuspid Valve The tricuspid valve is normal in structure. There is no tricuspid valve regurgitation noted. Pulmonic Valve The pulmonary valve is normal in structure. There is mild pulmonic valvular regurgitation. Great Vessels The aortic root is normal in size. IVC is dilated and collapses >50% with inspiration. Pericardium There is no pericardial effusion. Other Information Quality : Technically diffcult study due to body habitus Conclusion LVEF is 55%. DICTATED BY: CAROL GALLAGHER MD DATE: 01/31/25844 ELECTRONICALLY SIGNED BY: CAROL GALLAGHER MD DATE: 01/31/252052 PATIENT: CHARY HERNANDEZ MR#: [id number] : 1980 SEX: M AGE: 44 LOCATION: [facility] ORDER STATUS: [facility] REPORT#: [id number] SERVICE REASON: r/o DVT ORDERING PHYSICIAN: BIANCA GARCIA PROCEDURE: VENOUS GRACIE - US VENOUS DOPPLER BILATERAL EXAM: US for Deep Venous Thrombosis, bilateral Lower Extremity. CLINICAL HISTORY: Rule out deep venous thrombosis. TECHNIQUE: Real-time ultrasound scan of the veins of the bilateral lower extremity with color Doppler flow, spectral waveform analysis and compression. COMPARISON: None provided. FINDINGS: DEEP VEINS: The common femoral, superficial femoral, and popliteal veins are echolucent and compressible. There is normal color Doppler flow throughout. The visualized calf veins appear patent. SOFT TISSUES: No popliteal fossa cyst or other abnormalities. IMPRESSION: No deep venous thrombosis is evident on bilateral lower extremity examination. /[place] DICTATED BY: LARISSA LEMONS Jr., MD DATE: 01/31/25400 ELECTRONICALLY SIGNED BY: LARISSA LEMONS Jr., MD DATE: 01/31/25400 PATIENT: CHARY HERNANDEZ MR#: [id number] : 1980 SEX: M AGE: 44 LOCATION: [facility] ORDER STATUS: ADM IN REPORT#: [id number] SERVICE REASON: r/o P.E. ORDERING PHYSICIAN: BIANCA GARCIA PROCEDURE: CHES PE - CT CHEST PE PROTOCOL WWO CONT EXAMINATION: CT Chest, with intravenous contrast CLINICAL HISTORY: Patient presents to rule out pulmonary embolism. TECHNIQUE: Axial computed tomography images of the chest, with intravenous contrast. Multiplanar reformations were generated and reviewed. CONTRAST: With intravenous contrast. COMPARISON: None provided. FINDINGS: CHEST: LUNGS: The lungs demonstrate extensive diffuse consolidation and airspace opacities and ground-glassing throughout the bilateral lungs, predominantly involving the lower lobes and perihilar regions. No pulmonary mass. PLEURAL SPACES: No pneumothorax or pleural effusion. CARDIOVASCULAR: Cardiomegaly is present. No significant pericardial effusion. The main pulmonary artery measures 3.2 cm. The right pulmonary artery measures 2 cm. The left pulmonary artery measures 2.2 cm. The pulmonary arteries show no evidence of filling defects. Normal caliber thoracic aorta. MEDIASTINUM AND SILVINO: No mediastinal or hilar lymphadenopathy. ABDOMEN : Hepatosplenomegaly BONES: No acute or aggressive osseous abnormality. IMPRESSION: No acute pulmonary embolism. Extensive diffuse bilateral pulmonary airspace opacities, predominantly in the lower lobes and perihilar regions, consistent with pulmonary edema. Cardiomegaly with mild pulmonary arterial hypertension. Hepatosplenomegaly. /[place] DICTATED BY: LARISSA LEMONS Jr., MD DATE: 01/31/25803 ELECTRONICALLY SIGNED BY: LARISSA LEMONS Jr., MD DATE: 01/31/25803 ASSESSMENT: Hyperkalemia Acute renal failure Acute hypoxemic and hypercarbic respiratory failure now with worsening respiratory distress ARDS Community-acquired pneumonia suspected Pneumocystis Toxic metabolic encephalopathy on admission Acute sepsis on admission without septic shock secondary to community-acquired pneumonia HIV positive newly diagnosed stage IV. Not on anti-retroviral medication CD4 count: 19 Immunocompromise status Suspected TB Obstructive sleep apnea, untreated/undiagnosed Morbid obesity, BMI 33.6 Volume overload PLAN: Labs, diagnostic, radiologic exams reviewed and interpreted by myself and supervising physician. We have reviewed external records in detail There is no need for emergent renal replacement therapy at this time. Continue with Lokelma Renally dose bactrium Order frequent BMP Continue with close monitoring of electrolytes and renal function Order CBC, CMP, and electrolytes in am Continue with antibiotics as per ID Continue mechanical ventilation and sedation IV pressors as needed Monitor blood pressure adjust medication doses as needed May use Dilaudid 0.5 mg IV every 6 hours as needed for severe pain Monitor blood sugars Strict intake, output, and daily weight should be monitored Please renally adjust medications Avoid nephrotoxic and nonsteroidal drugs Avoid contrast if possible Will continue to monitor renal function, anemia, electrolytes Treatment plan discussed with patient Questions were answered We have discussed with the other team physicians in detail about the care plan We will continue to monitor the patient closely Total critical care time spent with patient, nursing staff, critical care team over 35 minutes ATTESTATION BY PHYSICIAN I have seen and examined the patient. I reviewed the documentation, medical decision making, and treatment plan as noted by the mid-level provider above. I agree with the findings and plan of care. DARBY PORRAS MD, [facility] Feb 10, 2025 17:45
[2025-02-10] MEDS: RALTEGRAVIR POTASSIUM 400 MG TAB PO SCH (22:38)
[2025-02-11] VITALS (104 sets, daily range): BP systolic 86–164; BP diastolic 37–85; PULSE 69–120; RESP 8–36; TEMP 96.8–103.2; O2SAT 93–100
[2025-02-11 04:50] LABS: IMMATURE GRANULOCYTE ABSOLUTE 0.59 K/uL (0-1); NUCLEATED RED BLOOD CELLS 0.3 % (0.0-0.19); PLATELET COUNT (AUTO) 214 K/uL (130-400); RED BLOOD CELL COUNT(AUTO) 3.30 MIL/uL (4.50-6.20); RED CELL DISTRIBUTION WIDTH 13.3 % (11.0-15.5); WHITE BLOOD COUNT (AUTO) 10.4 K/uL (4.8-10.8)
[2025-02-11 05:05] LABS: WBC MORPHOLOGY CONSISTENT W/DIFF
[2025-02-11 05:06] LABS: PLATELET MORPHOLOGY PLT CLUMPS PRESENT
[2025-02-11 05:17] LABS: ASPARTATE AMINOTRANSFERASE 117.0 U/L (10-37); CREATININE 2.2 mg/dL (0.5-1.3); GLOMERULAR FILTR. RATE CALC 37.0 mL/min (>90); GLUCOSE,RANDOM 97.0 mg/dL (70-105); PHOSPHORUS 5.2 mg/dL (2.5-4.9); SODIUM SERUM 132.0 mmol/L (136-145); TOTAL PROTEIN, SERUM 6.1 g/dL (6.0-8.3); UREA NITROGEN, BLOOD 66.0 mg/dL (7-18)
--- NOTE | 2025-02-11 10:30 | NUR ---
Patient's respiratory rate continuously within the 30s and appears agonal/gasping at times. I relayed this information to the critical care DOMESTIC TRAVEL CONSULTANT. No further orders initiated. Will continue to monitor.
--- NOTE | 2025-02-11 10:33 | PN ---
[facility] PROGRESS NOTE Date Patient Seen: Feb 11, 2025 Time of Visit: 10:26 Supervising Physician: [ Dr. Brush] Primary Care Physician: [Avi LESTER] Outpatient Specialists: [ ] Inpatient Consults: [Dr. Sigala-ID, [facility]-ICU] PROBLEM LIST: Acute hypoxemic and hypercarbic respiratory failure ARDS Community-acquired pneumonia suspected Pneumocystis Toxic metabolic encephalopathy on admission Acute sepsis on admission without septic shock secondary to community-acquired pneumonia HIV positive newly diagnosed stage IV. Not on anti-retroviral medication CD4 count: 19 Immunocompromise status Obstructive sleep apnea, untreated/undiagnosed Morbid obesity, BMI 33.6 JUAN Volume overload INTERVAL HISTORY: Patient seen and examined all labs have been reviewed. Cased discussed in lenght with patients parents. Patient appears comfortable, on Precedex Patient continues on Ventilator support, we have increased PEEP from 5 to 8 with 40% FIO2 Sputum cultures positive for Klebsiella pneumoniae and MSSA Plan: Continue Respiratory support K5.8- Lokelma Repeat K levels this evening Follow Blood and sputum cultures Continue on Cefepime, Doxy, Bactrim, and fluconazole per ID. Follow nephrology recommendations, avoid and nephrotoxic medications. Follow daily chest x-ray and labs. Total critical care time spent 45 minutes, this excludes any procedures performed or any time spent in educational or teaching. REVIEW OF SYSTEMS: Patient on Precedex drip, unable to obtain information from patient. PHYSICAL EXAM: Obese GENERAL: on Vent assistance, responding to self HEENT: EOMI, Sclera non icteric, moist mucosa NECK: Supple, no JVD, trachea midline LUNGS: Fine crackles bilaterally. HEART: Regular rate and rhythm. Normal S1 and S2, without murmurs ABD: Abdomen soft, nontender. Bowel sounds present, obese EXT: No clubbing cyanosis or edema : Dias in situ NEURO: sedated Vital Signs (last 8hr) Date Time Temp Pulse Resp B/P (MAP) Pulse Ox O2 Delivery O2 Flow Rate FiO2 02/11/25 07:00 107 32 145/76 (99) 98 02/11/25 06:59 102 31 02/11/25 06:58 105 40 02/11/25 06:45 105 32 142/70 (94) 97 02/11/25 06:30 102 31 140/73 (95) 95 02/11/25 06:15 103 31 141/69 (93) 96 02/11/25 06:00 102 31 139/76 (97) 96 02/11/25 05:45 104 33 139/78 (98) 95 02/11/25 05:30 104 26 138/75 (96) 95 02/11/25 05:15 105 27 139/74 (95) 95 02/11/25 05:00 105 28 138/75 (96) 95 02/11/25 04:45 103 28 139/74 (95) 95 02/11/25 04:30 102 30 140/77 (98) 95 02/11/25 04:17 40 02/11/25 04:15 103 29 142/77 (98) 95 02/11/25 04:00 96 Ventilator+ 40 02/11/25 04:00 99.0 Ventilator 40 02/11/25 04:00 101 28 140/77 (98) 95 02/11/25 03:45 99 28 133/72 (92) 96 02/11/25 03:30 96 28 121/68 (85) 95 02/11/25 03:25 96 40 02/11/25 03:15 96 28 119/63 (81) 95 02/11/25 03:00 96 29 120/62 (81) 97 02/11/25 02:45 96 26 117/54 (75) 97 02/11/25 02:38 92 27 02/11/25 02:30 96 28 111/54 (73) 98 LABS: Hematology Labs: Test 02/11/25 04:22 02/10/25 04:51 Range/Units White Blood Count 10.4 4.8-10.8 K/uL Red Blood Count 3.30 L 4.50-6.20 MIL/uL Hemoglobin 9.3 L 14.0-18.0 g/dL Hematocrit 27.3 L 42-54 % Mean Corpuscular Volume 82.7 79-99 fL Mean Corpuscular Hemoglobin 28.2 27.0-33.0 pg Mean Corpuscular Hemoglobin Concent 34.1 32.0-36.0 g/dL Red Cell Distribution Width 13.3 11.0-15.5 % Platelet Count 214 130-400 K/uL Mean Platelet Volume 10.3 7.5-10.5 fL Immature Granulocyte % (Auto) 5.7 H 0-1 % Neutrophils (%) (Auto) 90.3 H 40.0-77.0 % Lymphocytes (%) (Auto) 3.0 L 21.0-51.0 % Monocytes (%) (Auto) 0.9 L 3.0-13.0 % Eosinophils (%) (Auto) 0.0 0.0-8.0 % Basophils (%) (Auto) 0.1 0.0-5.0 % Neutrophils # (Auto) 9.4 H 1.8-7.7 K/uL Lymphocytes # (Auto) 0.3 L 1.0-4.8 K/uL Monocytes # (Auto) 0.1 0.1-1.0 K/uL Eosinophils # (Auto) 0.00 0.00-0.70 K/uL Basophils # (Auto) 0.01 0.00-0.20 K/uL Absolute Immature Granulocyte (auto 0.59 0-1 K/uL Nucleated Red Blood Cells 0.3 H 0.0-0.19 % White Cell Morphology Comment CONSISTENT W/DIFF Platelet Morphology PLT CLUMPS PRESENT Segmented Neutrophils % 96 H 40-70 % Lymphocytes % (Manual) 3 L 22-44 % Monocytes % (Manual) 1 L 2-9 % Differential Comment MANUAL DIFFERENTIAL Platelet Morphology Comment ADEQUATE Red Blood Cell Morphology HYPOCHROM CELLS 1+ Chemistry Labs: Test 02/11/25 07:57 02/11/25 04:22 Range/Units Whole Blood Glucose 94 70-110 MG/DL Sodium Level 132 L 136-145 mmol/L Potassium Level 5.8 H 3.5-5.1 mmol/L Chloride Level 98 L 101-111 mmol/L Carbon Dioxide Level 25 21-32 mmol/L Blood Urea Nitrogen 66 H 7-18 mg/dL Creatinine 2.2 H 0.5-1.3 mg/dL Glomerular Filtration Rate Calc 37 >90 mL/min Random Glucose 97 70-105 mg/dL Lactic Acid Level 3.8 H 0.8-2.5 mmol/L Total Calcium 8.3 L 8.5-10.1 mg/dL Phosphorus Level 5.2 H 2.5-4.9 mg/dL Total Bilirubin 0.7 0.2-1.0 mg/dL Aspartate Amino Transf (AST/SGOT) 117 H 10-37 U/L Alanine Aminotransferase (ALT/SGPT) 61 # 12-78 U/L Alkaline Phosphatase 145 H 50-136 U/L Total Protein 6.1 6.0-8.3 g/dL Albumin 1.7 L 3.5-5.0 g/dL DIAGNOSTICS / RADIOLOGY RESULTS: [ ] NEURO: Minimize central acting medications as possible. Fall Precautions. Well lighted room through the day and minimize interruptions through the night to prevent acute delirium. PULMONARY: Supplemental 02 as needed Titrate Fio2 to keep Spo2 > or = 90% DuoNebs and CPT as needed IS hourly while awake for pulmonary hygiene Out of bed to chair as tolerated VAP Bundle Vent/BIPAP Settings: [ BIPAP setting 12/11 rate of 18 FiO2 60%. ] CARDIOVASCULAR: Follow hemodynamics. Titrate vasopressor to keep MAP >65 or systolic blood pressure >95mmHg DRIPS: [Precedex ] LINES: [PIV] GI & NUTRITION: Continue nutritional support Aspirations precautions Prokinetic agents and laxatives as needed KIDNEYS & ELECTROLYTES: Strict monitoring of intake and output Daily weights Avoid nephrotoxic agents Monitor electrolytes and replace as needed Dias care-prevent CAUTI per nursing Goal urine output of 30mL/hr or 0.5mL/kg/hr Urine output: [ ] Fluid Balance: [ ] ENDOCRINE: Maintain blood glucose between 100-180 at all times. Insulin sliding scale for blood glucose management INFECTIOUS DISEASE: Trend temperature. Lara-culture if febrile. Micro: [ ] Antibiotics: [Vancomycin 01/30- IV Fluconazole: 01/30- IV Sulfa/TMP: 01/30-] HEMATOLOGY & COAGULATION: Monitor H&H. Keep Hgb > 7 Transfuse 1 unit of PRBC for Hgb < 7 Transfuse 1 pack of platelets of platelets < 20, 000 Watch for any signs and symptoms of bleeding SKIN: Pressure ulcer prevention per facility protocol Rehab: PT/OT Prophylaxis: GI: [Pepcid] DVT: [Heparin ] Code Status: Full Resuscitation Disposition: [ICU ] STARRNETO Enmanuel [facility] Feb 11, 2025 10:32
--- NOTE | 2025-02-11 11:02 | NUR ---
Checked patient's temperature after administering Acetaminophen IV. The patient's temperature is 103.3 F. I relayed this information to the critical care OFFICE SUPPORT SPECIALIST. She stated she will go over the patient's chart and initiate orders. Will place ice packs on the patient and continue to monitor.
[2025-02-11 11:58] LABS: ABG BASE EXCESS -2.4 mmol/L (-2.0-3.0); ABG HCO3 21.8 mmol/L (21.0-28.0); ABG OXYGEN SATURATION 94.4 % (94.0-98.0); ABG PCO2 36 mmHg (35-48); ABG PH 7.405 (7.350-7.450); CARBON MONOXIDE 0.5 % (0.5-1.5); PO2, ARTERIAL BG 78.9 mmHg (83.0-108.0); TEMPERATURE, CELSIUS BG 37.0 CELSIUS (35.5-37.0); VENT MODE, BG AC (ROOM AIR)
--- NOTE | 2025-02-11 12:15 | NUR ---
Placed the patient on a cooling blanket at this time. Will continue to monitor temperature.
--- NOTE | 2025-02-11 12:43 | NUR ---
Lactic acid of 4.6 on the ABG at this time. Communicated the results to Subhash LESTER. No further orders initiated.
--- NOTE | 2025-02-11 13:00 | NUR ---
Discovered a skin injury on the patient's right heel. Will document images.
--- NOTE | 2025-02-11 13:01 | NUR ---
Lab called and stated a finding of gram + cocci in blood culture. Results relayed to Subhash LESTER.
--- NOTE | 2025-02-11 13:11 | PN ---
INFECTIOUS DISEASE PROGRESS NOTE Date of Service: Feb 11, 2025 SUBJECTIVE: This is a 44-year-old male patient who was seen at bedside in room 217. Patient had a fever of 102.2 this morning and during visit today patient was a little anxious. Remains intubated and may need Precedex resumed. We will obtain urine cultures besides the blood culture and sputum culture collected yesterday. Patient has been started on Truvada and Raltegravir. Patient's sister present at bedside was updated on this information. Patient continues on Bactrim, doxycycline and fluconazole. We will continue to follow patient's care. PHYSICAL EXAM EYES: Anicteric. Pupils equal and reactive. HENT: Oral thrush. NGT. NECK: Supple, no JVD or thyromegaly. LUNGS: On mechanical ventilatory support. CARDIOVASCULAR: S1, S2 regular. No murmur heard. ABDOMEN: Soft, non tender, bowel sounds present, no organomegaly. CENTRAL NERVOUS SYSTEM: Intubated. SKIN: Rash on abdomen and lower extremities. LYMPHATICS: No peripheral lymphadenopathy MUSCULOSKELETAL: No joint swelling, erythema or tenderness. EXTREMITIES: No cyanosis or clubbing. Weakness. BACK: No deformity, no pressure ulcer. GENITOURINARY: No dysuria or hematuria. Dias catheter. Vital Sign (Last 12 Hours) 02/11/25 02/11/25 02/11/25 02/11/25 01:15 01:30 01:45 02:00 Pulse 92 91 93 91 Resp 26 B/P (MAP) 117/56 (76) 111/49 (69) 117/55 (75) 102/49 (66) Pulse Ox 97 96 96 94 02/11/25 02/11/25 02/11/25 02/11/25 02:15 02:30 02:38 02:45 Pulse 89 96 92 96 Resp 27 26 B/P (MAP) 90/39 (56) 111/54 (73) 117/54 (75) Pulse Ox 92 98 97 02/11/25 02/11/25 02/11/25 02/11/25 03:00 03:15 03:25 03:30 Pulse 96 96 96 96 Resp 28 B/P (MAP) 120/62 (81) 119/63 (81) 121/68 (85) Pulse Ox 97 95 95 FiO2 40 12/602/11/25 02/11/25 02/11/25 03:45 04:00 04:00 04:00 Temp 99.0 Pulse 99 101 Resp 28 28 B/P (MAP) 133/72 (92) 140/77 (98) Pulse Ox 96 95 96 O2 Delivery Ventilator Ventilator+ FiO2 40 40 02/11/25 02/11/25 02/11/25 02/11/25 04:15 04:17 04:30 04:45 Pulse 103 102 103 Resp 29 30 28 B/P (MAP) 142/77 (98) 140/77 (98) 139/74 (95) Pulse Ox 95 95 95 FiO2 40 02/11/25 02/11/25 02/11/25 02/11/25 05:00 05:15 05:30 05:45 Pulse 105 105 104 104 Resp 28 26 33 B/P (MAP) 138/75 (96) 139/74 (95) 138/75 (96) 139/78 (98) Pulse Ox 95 95 95 95 02/11/25 02/11/25 02/11/25 02/11/25 06:00 06:15 06:30 06:45 Pulse 102 103 102 105 Resp 31 31 31 32 B/P (MAP) 139/76 (97) 141/69 (93) 140/73 (95) 142/70 (94) Pulse Ox 96 96 95 97 02/11/25 02/11/25 02/11/25 02/11/25 06:58 06:59 07:00 07:15 Pulse 105 102 107 105 Resp 32 28 B/P (MAP) 145/76 (99) 137/59 (85) Pulse Ox 98 94 FiO2 40 02/11/25 02/11/25 02/11/25 02/11/25 07:30 07:45 08:00 08:00 Pulse 106 103 102 Resp 33 28 30 B/P (MAP) 136/58 (84) 134/56 (82) 129/59 (82) Pulse Ox 93 94 93 FiO2 40 02/11/25 02/11/25 02/11/25 02/11/25 08:00 08:00 08:15 08:30 Temp 102.2 Pulse 102 104 Resp 31 32 B/P (MAP) 123/59 (80) 132/69 (90) Pulse Ox 96 92 92 O2 Delivery Ventilator Ventilator+ FiO2 40 40 02/11/25 02/11/25 02/11/25 02/11/25 08:45 09:00 09:15 09:30 Pulse 108 105 105 111 Resp 33 33 34 B/P (MAP) 138/72 (94) 136/69 (91) 135/71 (92) Pulse Ox 93 95 95 FiO2 40 02/11/25 02/11/25 02/11/25 02/11/25 09:30 09:45 10:00 10:15 Pulse 106 107 108 108 Resp 31 32 32 32 B/P (MAP) 139/69 (92) 141/75 (97) 143/80 (101) 148/73 (98) Pulse Ox 95 95 95 95 02/11/25 02/11/25 02/11/25 02/11/25 10:30 10:45 11:00 11:12 Pulse 105 107 108 117 Resp 32 32 33 28 B/P (MAP) 151/77 (101) 154/77 (102) 152/82 (105) Pulse Ox 95 95 97 02/11/25 02/11/25 02/11/25 02/11/25 12:00 12:00 12:00 12:07 Temp 103.3 103.3 Pulse Ox 96 O2 Delivery Ventilator+ Ventilator FiO2 40 40 40 Intake & Output (last 24hrs) 0 02/10/25 02/10/25 02/11/25 15:00 23:00 07:00 Intake Total 1212.8 ml 1436.1 ml 1479.4 ml Output Total 2100 ml Balance 1212.8 ml -663.9 ml 1479.4 ml LABS: Laboratory: Test 02/11/25 11:56 02/11/25 11:55 02/11/25 04:22 02/10/25 04:51 Range/Units Blood Gas Specimen Type Arterial Arterial Blood pH 7.405 7.350-7.450 Arterial Blood Partial Pressure CO2 36 35-48 mmHg Arterial Blood Partial Pressure O2 78.9 L 83.0-108.0 mmHg Arterial Blood HCO3 21.8 21.0-28.0 mmol/L Arterial Blood Oxygen Saturation 94.4 94.0-98.0 % Arterial Blood Base Excess -2.4 L -2.0-3.0 mmol/L Hemoglobin (Blood Gas) 10.9 L 13.5-17.5 g/dL Sodium (Blood Gas) 131 L 136-145 MMOL/L Bedside Potassium (Blood Gas) 5.7 H 3.4-4.5 MMOL/L Bedside Chloride (Blood Gas) 100 98-107 MMOL/L Bedside Glucose (Blood Gas) 130 H 65-95 MG/DL Bedside Ionized Calcium (Blood Gas) 1.13 L 1.15-1.33 MMOL/L Bedside Lactic Acid (Blood Gas) 4.61 *H 0.36-0.75 MMOL/L Blood Gas Temperature 37.0 35.5-37.0 CELSIUS Blood Gas Respiration Rate 20.0 min. Blood Gas Vent Mode AC ROOM AIR FiO2 40.0 % Blood Gas Tidal Volume 500 ml Blood Gas PEEP 8 cm H2O Blood Gas Specimen Comment RRNATHAN Whole Blood Glucose 114 H 70-110 MG/DL White Blood Count 10.4 4.8-10.8 K/uL Red Blood Count 3.30 L 4.50-6.20 MIL/uL Hemoglobin 9.3 L 14.0-18.0 g/dL Hematocrit 27.3 L 42-54 % Mean Corpuscular Volume 82.7 79-99 fL Mean Corpuscular Hemoglobin 28.2 27.0-33.0 pg Mean Corpuscular Hemoglobin Concent 34.1 32.0-36.0 g/dL Red Cell Distribution Width 13.3 11.0-15.5 % Platelet Count 214 130-400 K/uL Mean Platelet Volume 10.3 7.5-10.5 fL Immature Granulocyte % (Auto) 5.7 H 0-1 % Neutrophils (%) (Auto) 90.3 H 40.0-77.0 % Lymphocytes (%) (Auto) 3.0 L 21.0-51.0 % Monocytes (%) (Auto) 0.9 L 3.0-13.0 % Eosinophils (%) (Auto) 0.0 0.0-8.0 % Basophils (%) (Auto) 0.1 0.0-5.0 % Neutrophils # (Auto) 9.4 H 1.8-7.7 K/uL Lymphocytes # (Auto) 0.3 L 1.0-4.8 K/uL Monocytes # (Auto) 0.1 0.1-1.0 K/uL Eosinophils # (Auto) 0.00 0.00-0.70 K/uL Basophils # (Auto) 0.01 0.00-0.20 K/uL Absolute Immature Granulocyte (auto 0.59 0-1 K/uL Nucleated Red Blood Cells 0.3 H 0.0-0.19 % White Cell Morphology Comment CONSISTENT W/DIFF Platelet Morphology PLT CLUMPS PRESENT Sodium Level 132 L 136-145 mmol/L Potassium Level 5.8 H 3.5-5.1 mmol/L Chloride Level 98 L 101-111 mmol/L Carbon Dioxide Level 25 21-32 mmol/L Blood Urea Nitrogen 66 H 7-18 mg/dL Creatinine 2.2 H 0.5-1.3 mg/dL Glomerular Filtration Rate Calc 37 >90 mL/min Random Glucose 97 70-105 mg/dL Lactic Acid Level 3.8 H 0.8-2.5 mmol/L Total Calcium 8.3 L 8.5-10.1 mg/dL Phosphorus Level 5.2 H 2.5-4.9 mg/dL Total Bilirubin 0.7 0.2-1.0 mg/dL Aspartate Amino Transf (AST/SGOT) 117 H 10-37 U/L Alanine Aminotransferase (ALT/SGPT) 61 # 12-78 U/L Alkaline Phosphatase 145 H 50-136 U/L Total Protein 6.1 6.0-8.3 g/dL Albumin 1.7 L 3.5-5.0 g/dL Segmented Neutrophils % 96 H 40-70 % Lymphocytes % (Manual) 3 L 22-44 % Monocytes % (Manual) 1 L 2-9 % Differential Comment MANUAL DIFFERENTIAL Platelet Morphology Comment ADEQUATE Red Blood Cell Morphology HYPOCHROM CELLS 1+ ASSESSMENT: Acute hypoxic and hypercapnic respiratory failure, s/p intubation. Multifocal pneumonia. Suspected advanced stage HIV, not on anti-retroviral therapy, POA. Suspected Pneumocystis pneumonia, ruled out. Sepsis. Acute renal failure. Oral candidiasis. Morbid obesity. PLAN: Continue on Truvada and Raltegravir. Continue Bactrim IV. Continue fluconazole IV. Continue doxycycline IV. Continue cefepime. Obtain urine culture. Continue GI prophylaxis. Continues on mechanical ventilatory support. Continue critical care support. This case was reviewed and discussed with my supervising physician Dr. Sigala and the above assessment and plan was formulated and agreed upon. ATTESTATION BY PHYSICIAN I have seen and examined the patient. I reviewed the documentation, medical decision making, and treatment plan as noted by the mid-level provider above. I agree with the findings and plan of care. MIRZA SIGALA MD, [facility] Feb 11, 2025 13:11
[2025-02-11] MEDS: DOXYCYCLINE 100MG+NS 250ML 250 ML IV SCH (14:23)
--- NOTE | 2025-02-11 14:33 | PN ---
NEPHROLOGY PROGRESS NOTE Date/Time Patient Seen: Feb 11, 2025 SUBJECTIVE: This is a 44-year-old male with HIV positive newly diagnosed He was brought by EMS to the ED for complaints of shortness of breaths for the past two weeks. He has been in the hospital for several days He continues on antibiotics, including Bactrim, as per ID. He was noted to have elevated BUN/creatinine We are consulted for renal failure Renal function continues to worsen Electrolytes show hyperkalemia He has been started on Lokelma BID Renal ultrasound showed partially distended bladder with no hydronephrosis or renal calculus He continues on Lasix, urine output was noted Tolerating Nepro tube feedings He was seen in the ICU, Nurse reports fevers Continues to be intubated and sedated Family at the bedside Prognosis remains guarded REVIEW OF SYSTEMS: Difficult to obtain given status of the patient who remains intubated mecha nically ventilated Vital Signs (last 8hr) Date Time Temp Pulse Resp B/P (MAP) Pulse Ox O2 Delivery O2 Flow Rate FiO2 02/11/25 12:30 120 28 145/72 (96) 02/11/25 12:15 115 32 146/77 (100) 02/11/25 12:07 103.3 02/11/25 12:00 103.3 Ventilator 40 02/11/25 12:00 112 27 138/70 (92) 02/11/25 12:00 96 Ventilator+ 40 02/11/25 12:00 40 02/11/25 11:45 113 34 129/85 (100) 02/11/25 11:30 107 33 159/80 (106) 02/11/25 11:15 110 32 164/81 (108) 02/11/25 11:12 117 28 02/11/25 11:00 108 33 152/82 (105) 97 02/11/25 10:45 107 32 154/77 (102) 02/11/25 10:30 105 32 151/77 (101) 02/11/25 10:15 108 32 148/73 (98) 02/11/25 10:00 108 32 143/80 (101) 02/11/25 09:45 107 32 141/75 (97) 02/11/25 09:30 106 31 139/69 (92) 02/11/25 09:30 111 40 12/6/25 09:15 105 34 135/71 (92) 95 02/11/25 09:00 105 33 136/69 (91) 95 02/11/25 08:45 108 33 138/72 (94) 93 02/11/25 08:30 104 32 132/69 (90) 92 02/11/25 08:15 102 31 123/59 (80) 92 02/11/25 08:00 96 Ventilator+ 40 02/11/25 08:00 102.2 Ventilator 40 02/11/25 08:00 102 30 129/59 (82) 93 02/11/25 08:00 40 02/11/25 07:45 103 28 134/56 (82) 94 02/11/25 07:30 106 33 136/58 (84) 93 02/11/25 07:15 105 28 137/59 (85) 94 02/11/25 07:00 107 32 145/76 (99) 98 02/11/25 06:59 102 31 02/11/25 06:58 105 40 02/11/25 06:45 105 32 142/70 (94) 97 PHYSICAL EXAM: General: acutely ill, sedated, intubated, and mechanically ventilated HEENT: head is atraumatic, pupils equal and reactive, ET tube in place Neck: supple, no masses, no lymphadenopathy, no thyromegaly, no JVD Lungs: decreased breath sounds bilaterally, symmetrical chest movement Cardio: regular rate, S1 and S2 normal, no rub or gallop Abdomen: soft, non tender, no distension, no organomegaly Extremities: trace edema bilateral lower extremities, no cyanosis or clubbing Skin: no rashes or suspicious lesions Neuro: sedated Current Medications Medications (Trade) Dose Ordered Sig/Amada Route Start Time Stop Time Status Last Admin Dose Admin Albuterol (DUOneb) 1 udvial [id number] IH 01/30/25 22:00 03/01/25 21:59 02/09/25 10:30 1 UDVIAL Cefepime HCl (MAXipime 2 gm vial) 2 gm Q12H IVPB 02/01/25 14:00 02/11/25 13:59 02/09/25 01:56 2 GM Dexmedetomidine/ Sodium Chloride (PRECEdex 400MCG/ 100ML-NS) 400 mcg PROTOCOL IV 02/04/25 23:45 03/06/25 23:44 02/09/25 05:56 400 MCG Doxycycline Hyclate 250 ml @ 125 mls/hr Q12H IV 01/31/25 14:00 02/10/25 13:59 02/09/25 01:56 125 MLS/HR Famotidine (Pepcid 20mg Vial) 20 mg DAILY IV 01/31/25 09:00 03/02/25 08:59 02/09/25 08:28 20 MG Fentanyl Citrate 100 ml @ 2.5 mls/hr PROTOCOL IV 02/05/25 11:30 02/05/25 19:59 DC 02/05/25 17:13 2.5 MLS/HR Fentanyl/Sodium Chloride 250 ml @ 0.1 mls/hr PROTOCOL IV 02/05/25 20:00 02/08/25 15:52 DC 02/07/25 22:11 0.1 MLS/HR Fluconazole/ Sodium Chloride (DiFLUCan 200 MG/ NS 100 ML) 200 mg DAILY22 IV 02/02/25 22:00 03/01/25 17:59 02/08/25 23:07 200 MG Fluconazole/ Sodium Chloride (DiFLUCan 200 MG/ NS 100 ML) 200 mg Q24H IV 01/30/25 18:00 02/02/25 14:38 DC 02/01/25 18:17 200 MG Furosemide (LASix 20MG VIAL) 20 mg Q8H IV 02/06/25 16:00 03/08/25 15:59 02/09/25 08:02 20 MG Furosemide (LASix 40MG VIAL) 20 mg ONCE STAT IV 01/31/25 05:37 01/31/25 05:40 DC 01/31/25 05:45 20 MG Heparin Sodium (Porcine) (HEParin 5,000 UNIT VIAL) 5,000 unit Q12H SQ 01/31/25 09:00 03/02/25 08:59 02/09/25 08:47 5,000 UNIT Insulin Glargine (LANtus 100 UNITS/ML 10 ML VIAL) 20 units BID SQ 02/04/25 21:00 02/06/25 14:49 DC 02/06/25 10:03 20 UNITS Insulin Glargine (LANtus 100 UNITS/ML 10 ML VIAL) 30 units BID SQ 02/06/25 21:00 03/08/25 20:59 02/09/25 08:36 30 UNITS Insulin Human Regular (humuLIN R 100 UNIT/ML 3ML) INSULIN SLIDING SCAL... ACHS SQ 02/07/25 16:30 02/07/25 11:56 DC Insulin Human Regular (humuLIN R 100 UNIT/ML 3ML) INSULIN SLIDING SCAL... Q6H6 SQ 01/31/25 06:00 02/07/25 11:55 DC 02/07/25 06:03 5 UNIT Insulin Human Regular (humuLIN R 100 UNIT/ML 3ML) INSULIN SLIDING SCAL... Q6H6 SQ 02/07/25 12:00 03/09/25 11:59 02/08/25 18:27 4 UNIT Methylprednisolone Sodium Succinate (Solu-medROL 40MG) 40 mg BID IVP 01/30/25 21:00 01/31/25 04:16 DC 01/30/25 21:18 40 MG Methylprednisolone Sodium Succinate (Solu-medROL 40MG) 40 mg BID IVP 02/07/25 21:00 03/09/25 20:59 02/09/25 08:28 40 MG Methylprednisolone Sodium Succinate (Solu-medROL 40MG) 40 mg Q8H IVP 01/31/25 04:30 02/02/25 11:57 DC 02/02/25 11:47 40 MG Methylprednisolone Sodium Succinate (Solu-medROL 40MG) 60 mg Q6H IVP 02/02/25 12:00 02/07/25 15:17 DC 02/07/25 11:27 60 MG Metoclopramide HCl (regLAN 10MG IV) 10 mg Q8H IVP 02/06/25 16:00 03/08/25 15:59 02/09/25 08:02 10 MG Morphine Sulfate (morPHINE 2MG SYG) 2 mg ONCE STAT IVP 01/31/25 05:41 01/31/25 05:45 DC 01/31/25 05:51 2 MG Multi-Ingred Cream/Lotion/Oil/ Oint (Artificial Tears Eye Oint) Apply ointment to both e... Q4H OU 01/31/25 15:00 03/02/25 14:59 02/09/25 06:37 1 APPL Norepinephrine Bitartrate (Norepineph 16 Mg/250ml NS Premix) sbp>90 PROTOCOL IV 02/05/25 11:30 03/07/25 11:29 Pharmacy Profile Note (Pharmacy Communication) 1 each ONCE MISC 02/05/25 11:30 02/05/25 11:23 DC Piperacillin Sod/ Tazobactam Sod (Zosyn 3.375gm+NS 50ml) 3.375 gm Q8H IVPB 01/31/25 09:30 01/31/25 12:56 DC 01/31/25 11:04 3.375 GM Piperacillin Sod/ Tazobactam Sod (Zosyn 3.375gm+NS 50ml) 3.375 gm ZOSY8 IVPB 01/31/25 13:00 02/01/25 13:33 DC 02/01/25 11:54 3.375 GM Polyethylene Glycol (MIRalax 3350 17 GM POWD.PACK) 17 gm DAILY PO 02/07/25 11:30 03/09/25 11:29 02/09/25 08:28 17 GM Sodium Bicarbonate (Sodium Bicarb 50meq 50ml Vial) 50 meq Q8H6 IV 02/06/25 14:00 02/07/25 16:00 DC 02/07/25 14:47 50 MEQ Sodium Chloride 1,000 ml @ 100 mls/hr Q10H IV 01/30/25 20:00 01/31/25 05:38 DC 01/30/25 21:18 100 MLS/HR Sodium Zirconium Cyclosilicate (Lokelma 10gm Powder) 10 gm BID PO 02/09/25 12:00 02/10/25 11:59 02/09/25 12:26 10 GM Trimethoprim/ Sulfamethoxazole 480 mg/Dextrose 500 ml @ 250 mls/hr Q6H IV 01/30/25 21:00 02/01/25 11:57 DC 02/01/25 02:49 250 MLS/HR Trimethoprim/ Sulfamethoxazole 480 mg/Dextrose 500 ml @ 250 mls/hr Q6H IV 02/01/25 12:00 02/11/25 11:59 02/09/25 12:21 250 MLS/HR Trimethoprim/ Sulfamethoxazole / Dextrose 100 ml @ 100 mls/hr AD IV 01/30/25 20:00 02/09/25 19:59 UNV Wound Care/ Dressing Products (Venelex Ointment) BID TP 02/09/25 21:00 03/11/25 20:59 LABORATORY: [ ] Hematology Labs: Test 02/11/25 04:22 02/10/25 04:51 Range/Units White Blood Count 10.4 4.8-10.8 K/uL Red Blood Count 3.30 L 4.50-6.20 MIL/uL Hemoglobin 9.3 L 14.0-18.0 g/dL Hematocrit 27.3 L 42-54 % Mean Corpuscular Volume 82.7 79-99 fL Mean Corpuscular Hemoglobin 28.2 27.0-33.0 pg Mean Corpuscular Hemoglobin Concent 34.1 32.0-36.0 g/dL Red Cell Distribution Width 13.3 11.0-15.5 % Platelet Count 214 130-400 K/uL Mean Platelet Volume 10.3 7.5-10.5 fL Immature Granulocyte % (Auto) 5.7 H 0-1 % Neutrophils (%) (Auto) 90.3 H 40.0-77.0 % Lymphocytes (%) (Auto) 3.0 L 21.0-51.0 % Monocytes (%) (Auto) 0.9 L 3.0-13.0 % Eosinophils (%) (Auto) 0.0 0.0-8.0 % Basophils (%) (Auto) 0.1 0.0-5.0 % Neutrophils # (Auto) 9.4 H 1.8-7.7 K/uL Lymphocytes # (Auto) 0.3 L 1.0-4.8 K/uL Monocytes # (Auto) 0.1 0.1-1.0 K/uL Eosinophils # (Auto) 0.00 0.00-0.70 K/uL Basophils # (Auto) 0.01 0.00-0.20 K/uL Absolute Immature Granulocyte (auto 0.59 0-1 K/uL Nucleated Red Blood Cells 0.3 H 0.0-0.19 % White Cell Morphology Comment CONSISTENT W/DIFF Platelet Morphology PLT CLUMPS PRESENT Segmented Neutrophils % 96 H 40-70 % Lymphocytes % (Manual) 3 L 22-44 % Monocytes % (Manual) 1 L 2-9 % Differential Comment MANUAL DIFFERENTIAL Platelet Morphology Comment ADEQUATE Red Blood Cell Morphology HYPOCHROM CELLS 1+ Chemistry Labs: Test 02/11/25 11:55 02/11/25 04:22 Range/Units Whole Blood Glucose 114 H 70-110 MG/DL Sodium Level 132 L 136-145 mmol/L Potassium Level 5.8 H 3.5-5.1 mmol/L Chloride Level 98 L 101-111 mmol/L Carbon Dioxide Level 25 21-32 mmol/L Blood Urea Nitrogen 66 H 7-18 mg/dL Creatinine 2.2 H 0.5-1.3 mg/dL Glomerular Filtration Rate Calc 37 >90 mL/min Random Glucose 97 70-105 mg/dL Lactic Acid Level 3.8 H 0.8-2.5 mmol/L Total Calcium 8.3 L 8.5-10.1 mg/dL Phosphorus Level 5.2 H 2.5-4.9 mg/dL Total Bilirubin 0.7 0.2-1.0 mg/dL Aspartate Amino Transf (AST/SGOT) 117 H 10-37 U/L Alanine Aminotransferase (ALT/SGPT) 61 # 12-78 U/L Alkaline Phosphatase 145 H 50-136 U/L Total Protein 6.1 6.0-8.3 g/dL Albumin 1.7 L 3.5-5.0 g/dL DIAGNOSTICS / RADIOLOGY: [address] [address] IMAGING REPORT Signed PATIENT: CHARY HERNANDEZ MR#: [id number] : 1980 SEX: M AGE: 44 LOCATION: [facility] ORDER 2300 STATUS: ADM IN REPORT#: [id number] SERVICE 0600 REASON: pp ORDERING PHYSICIAN: BIANCA WICK PAC PROCEDURE: CXR1VW - CHEST 1VW EXAM: CR Chest, 1 View. CLINICAL HISTORY: Endotracheal tube. COMPARISON: 02/09/2025 FINDINGS: The endotracheal tube is seen with its tip terminating about 5.6 cm above the catina. The nasogastric tube is seen in the left hemidiaphragm; the tip is not visualized. LUNGS: Mild interval reduction in the aeration of both lungs. PLEURAL SPACES: No definite pleural effusion or pneumothorax. MEDIASTINUM: Cardiac size is stable. BONES: No aggressive appearing osseous lesion seen. IMPRESSION: 1. Endotracheal tube tip 5.6 cm above the catina. 2. Mild interval reduction in the aeration of both lungs. /[place] DICTATED BY: LARISSA LEMONS Jr., MD DATE: 02/10/251510 ELECTRONICALLY SIGNED BY: LARISSA LEMONS Jr., MD DATE: 02/10/251510 PATIENT: CHARY HERNANDEZ MR#: [id number] : 1980 SEX: M AGE: 44 LOCATION: [facility] ORDER 2300 STATUS: ADM IN REPORT#: [id number] SERVICE 06 REASON: Respirateory failure ORDERING PHYSICIAN: NETO STARR PROCEDURE: CXR1VW - CHEST 1VW EXAM: CR Chest, 1 View. CLINICAL HISTORY: Respiratory failure COMPARISON: 02/08/2025 FINDINGS: The endotracheal tube is seen with its tip terminating about 5.4 cm above the catina. The nasogastric tube is seen in the left hemidiaphragm; the tip is not visualized. LUNGS: Essentially stable appearance of bilateral lung curtis, with persistent right basilar and diffuse left lung airspace disease. PLEURAL SPACES: No evidence of pleural effusion or pneumothorax. MEDIASTINUM: The cardiac size is stable. BONES: No aggressive appearing osseous lesion seen. IMPRESSION: 1. Endotracheal tube tip 5.4 cm above catina. 2. Nasogastric tube is demonstrated below the left hemidiaphragm; the tip is not visualized. 3. Essentially stable appearance of bilateral lung curtis, with persistent right basilar and diffuse left lung airspace disease. /[place] DICTATED BY: LARISSA LEMONS Jr., MD DATE: 02/09/251057 ELECTRONICALLY SIGNED BY: LARISSA LEMONS Jr., MD DATE: 02/09/251057 PATIENT: CHARY HERNANDEZ MR#: [id number] : 1980 SEX: M AGE: 44 LOCATION: [facility] ORDER 99 STATUS: ADM IN REPORT#: [id number] SERVICE 9 REASON: pp ORDERING PHYSICIAN: BIANCA WICK PAC PROCEDURE: CXR1VW - CHEST 1VW EXAM: CR Chest, 1 View. CLINICAL HISTORY: Follow up COMPARISON: 02/07/2025 FINDINGS: The endotracheal tube tip is 6.8 cm away from the catina. The nasogastric tube is seen below the left hemidiaphragm; the tip is not visualized. LUNGS: Essentially stable appearance of the bilateral lung curtis with mild bibasilar atelectasis and questionable small bilateral pleural effusions. PLEURAL SPACES: No evidence of pneumothorax. MEDIASTINUM: Cardiac size is stable. Mild stable pulmonary vascular congestion. BONES: No acute osseous abnormality. IMPRESSION: 1. Stable appearance of bilateral lung curtis with mild bibasilar atelectasis and questionable small bilateral pleural effusions. 2. Endotracheal tube tip 6.8 cm from catina. 3. Nasogastric tube below left hemidiaphragm, tip not visualized. /[place] DICTATED BY: LARISSA LEMONS Jr., MD DATE: 02/09/251109 ELECTRONICALLY SIGNED BY: LARISSA LEMONS Jr., MD DATE: 02/09/251109 PATIENT: CHARY HERNANDEZ MR#: [id number] : 1980 SEX: M AGE: 44 LOCATION: [facility] ORDER 99 STATUS: ADM IN REPORT#: [id number] SERVICE 9 REASON: pp ORDERING PHYSICIAN: BIANCA WICK PAC PROCEDURE: CXR1VW - CHEST 1VW EXAM: CR Chest, 2 View. CLINICAL HISTORY: Intubated. COMPARISON: 02/06/2025 FINDINGS: The endotracheal tube is seen with its tip terminating about 6.7 cm above the catina. The nasogastric tube terminates in the proximal stomach. LUNGS: Interval improvement in basilar predominant bilateral diffuse airspace disease is present. PLEURAL SPACES: No definite pleural effusion or pneumothorax. MEDIASTINUM: Cardiac size is stable. BONES: No aggressive appearing osseous lesion seen. IMPRESSION: 1. Interval improvement in bilateral basilar predominant airspace disease. 2. Endotracheal tube tip positioned 6.7 cm above catina. 3. The nasogastric tube terminates in the proximal stomach. /[place] DICTATED BY: LARISSA LEMONS Jr., MD DATE: 02/07/251748 ELECTRONICALLY SIGNED BY: LARISSA LEMONS Jr., MD DATE: 02/07/251748 PATIENT: CHARY HERNANDEZ MR#: [id number] : 1980 SEX: M AGE: 44 LOCATION: [facility] ORDER 134 STATUS: ADM IN REPORT#: [id number] SERVICE 1337 REASON: JUAN ORDERING PHYSICIAN: DARBY PORRAS MD PROCEDURE: RENAL - US RENAL SONOGRAM EXAMINATION: ULTRASOUND OF THE RETROPERITONEUM. CLINICAL HISTORY: JUAN. COMPARISON: None. TECHNIQUE: Real-time grayscale ultrasound images of the kidneys. FINDINGS: The kidneys are normal in caliber, the right kidney measures 12.9 x 6.5 x 6.5 cm and the left kidney measures 11.0 x 5.6 x 5.5 cm in its craniocaudal, AP, and transverse dimensions respectively. There is normal renal cortical thickness, and cortical echogenicity. There is no renal calculus or hydronephrosis. The urinary bladder is partially distended with mild wall thickening (0.6 cm). There are no calculi in the urinary bladder. IMPRESSION: Urinary bladder wall thickening of concern for cystitis. /[place] DICTATED BY: LARISSA LEMONS Jr., MD DATE: 02/07/25716 ELECTRONICALLY SIGNED BY: LARISSA LEMONS Jr., MD DATE: 02/07/25716 PATIENT: CHARY HERNANDEZ MR#: [id number] : 1980 SEX: M AGE: 44 LOCATION: [facility] ORDER 1118 STATUS: ADM IN REPORT#: [id number] SERVICE 1145 REASON: post intubation ORDERING PHYSICIAN: COMPA PATRICK MD PROCEDURE: CXR1VW - CHEST 1VW EXAM: CR Chest, 2 View. CLINICAL HISTORY: post intubation COMPARISON: Radiograph from February 04, 2025 FINDINGS: Endotracheal tubes in satisfactory position, tip terminating 3.5 cm above the catina. Right PICC terminates overlying the SVC. Bibasilar airspace disease may reflect an infectious process. No pleural effusion or pneumothorax. Heart size is stable. Pulmonary vessels are within normal limits. IMPRESSION: 1. Endotracheal tube and right PICC line in satisfactory positions. 2. Bibasilar airspace disease, possibly infectious. /[place] DICTATED BY: LARISSA LEMONS Jr., MD DATE: 02/05/251408 ELECTRONICALLY SIGNED BY: LARISSA LEMONS Jr., MD DATE: 02/05/251408 PATIENT: CHARY HERNANDEZ MR#: [id number] : 1980 SEX: M AGE: 44 LOCATION: [facility] ORDER 0930 STATUS: ADM IN REPORT#: [id number] SERVICE 0929 REASON: ngt placement for TF ORDERING PHYSICIAN: ISAC MATHEW MD PROCEDURE: ABD 1VW - ABD 1VW EXAM: CR Abdomen, 1 View. CLINICAL HISTORY: ngt placement for TF COMPARISON: None provided. FINDINGS: BOWEL: The transverse colon is filled with gas and fecal content could be due to constipation Nasogastric tubes projecting below lthe eft hemidiaphragm in the stomach PERITONEUM/SOFT TISSUES: No free air evident. No pathologic appearing calcification. BONES: No acute osseous abnormality. IMPRESSION: The nasogastric tube is projected below the left hemidiaphragm over the stomach, tip is located in the body portion of the stomach Gas and fecal-loaded transverse colon consistent with constipation /[place] DICTATED BY: LARISSA LEMONS Jr., MD DATE: 02/03/251138 ELECTRONICALLY SIGNED BY: LARISSA LEMONS Jr., MD DATE: 02/03/251138 PATIENT: CHARY HERNANDEZ MR#: [id number] : 1980 SEX: M AGE: 44 LOCATION: [facility] ORDER 1 STATUS: ADM IN REPORT#: [id number] SERVICE 5 REASON: hypoxia ORDERING PHYSICIAN: BIANCA GARCIA PROCEDURE: ECHO CMP - ECHO 2-D COMPLETE APPROVED REPORT EXAM: Two-dimensional and M-mode echocardiogram with Doppler and color Doppler. INDICATION ICD: R06.02 Shortness of breath 2D Dimensions RVDd 4.5 cm LVEF(%) 58.7 (>50%) LVED Vol(simp.) 152.0 mL IVSd 1.2 (0.7-1.1cm) FS(%) 32 % LVES Vol(simp.) 70.0 mL LVDd 6.1 (3.8-5.6cm) LA (2D) 4.0 (1.6-4.0cm) LVEF(%, simp.) 54 % PWd 0.8 (0.7-1.1cm) Ao Root(2D) 3.4 (2.0-3.7cm) LA ESV INDEX (BP) 26.38 mL/m2 IVSs 1.5 cm LVOT diam 2.7 (1.8-2.4cm) LVDs 4.1 (2.5-4.0cm) IVC diam 2.7 cm PWs 1.1 cm Deformation Strain Apical 4 -16.1 % Apical 2 -16.4 % Apical 3 -17.4 % Global Strain -16.6 % M-Mode Dimensions EPSS 0.3 cm LA (MM) 4.2 (1.6-4.0cm) Ao Root(MM) 4.0 (2.0-3.7cm) Aortic Valve AoV Vmax 1.4 m/s Ao Peak GR 7.3 mmHg LVOT Vmax 1.2 m/s AoV VTI 0.3 m Ao Mean GR 4.7 mmHg LVOT VTI 0.23 m MINH (VMAX) 5.28 cm2 MINH (VTI) 5.3 cm2 Mitral Valve MV E Vmax 88.4 cm/s DECEL Time 146 ms MV A Vmax 76.4 cm/s P 1/2 T 41 ms E/A ratio 1.2 MVA (PHT) 5.4 cm2 TDI E/E' Medial 10.2 E/E' Lateral 10.5 Medial E' Peak V 8.64 cm/s Lateral E' Peak V 8.43 cm/s Pulmonary Valve PV Vmax 0.8 m/s PV Peak GR 2.3 mmHg Tricuspid Valve TR Vmax 1.1 m/s RAP (EST) 8 mmHg RVSP 12.9 mmHg TR Peak GR 4.9 mmHg Left Ventricle The left ventricle is normal size. GLS -16.0% There is normal LV segmental wall motion. There is mild left ventricular wall thickness. LVEF is 55%. The LV diastolic function was unable to be assessed due to atrial arrhythmia. Right Ventricle The right ventricle is normal size. The right ventricular systolic function is normal. Atria The left atrium size is normal. The right atrium size is normal. Aortic Valve The aortic valve is normal in structure. No aortic regurgitation is present. There is no aortic valvular stenosis. Mitral Valve The mitral valve is normal in structure. There is trace of mitral valve regurgitation noted. There is no mitral valve stenosis. Tricuspid Valve The tricuspid valve is normal in structure. There is no tricuspid valve regurgitation noted. Pulmonic Valve The pulmonary valve is normal in structure. There is mild pulmonic valvular regurgitation. Great Vessels The aortic root is normal in size. IVC is dilated and collapses >50% with in spiration. Pericardium There is no pericardial effusion. Other Information Quality : Technically diffcult study due to body habitus Conclusion LVEF is 55%. DICTATED BY: CAROL GALLAGHER MD DATE: 01/31/2511 ELECTRONICALLY SIGNED BY: CAROL GALLAGHER MD DATE: 01/31/252052 PATIENT: CHARY HERNANDEZ MR#: [id number] : 1980 SEX: M AGE: 44 LOCATION: [facility] ORDER STATUS: ADM IN [facility] REPORT#: [id number] SERVICE REASON: r/o DVT ORDERING PHYSICIAN: BIANCA GARCIA PROCEDURE: VENOUS GRACIE - US VENOUS DOPPLER BILATERAL EXAM: US for Deep Venous Thrombosis, bilateral Lower Extremity. CLINICAL HISTORY: Rule out deep venous thrombosis. TECHNIQUE: Real-time ultrasound scan of the veins of the bilateral lower extremity with color Doppler flow, spectral waveform analysis and compression. COMPARISON: None provided. FINDINGS: DEEP VEINS: The common femoral, superficial femoral, and popliteal veins are echolucent and compressible. There is normal color Doppler flow throughout. The visualized calf veins appear patent. SOFT TISSUES: No popliteal fossa cyst or other abnormalities. IMPRESSION: No deep venous thrombosis is evident on bilateral lower extremity examination. /[place] DICTATED BY: LARISSA LEMONS Jr., MD DATE: 01/31/25400 ELECTRONICALLY SIGNED BY: LARISSA LEMONS Jr., MD DATE: 01/31/25400 PATIENT: CHARY HERNANDEZ MR#: [id number] : 1980 SEX: M AGE: 44 LOCATION: [facility] ORDER STATUS: ADM IN REPORT#: [id number] SERVICE REASON: r/o P.E. ORDERING PHYSICIAN: BIANCA GARCIACNLeo PROCEDURE: CHES PE - CT CHEST PE PROTOCOL WWO CONT EXAMINATION: CT Chest, with intravenous contrast CLINICAL HISTORY: Patient presents to rule out pulmonary embolism. TECHNIQUE: Axial computed tomography images of the chest, with intravenous contrast. Multiplanar reformations were generated and reviewed. CONTRAST: With intravenous contrast. COMPARISON: None provided. FINDINGS: CHEST: LUNGS: The lungs demonstrate extensive diffuse consolidation and airspace opacities and ground-glassing throughout the bilateral lungs, predominantly involving the lower lobes and perihilar regions. No pulmonary mass. PLEURAL SPACES: No pneumothorax or pleural effusion. CARDIOVASCULAR: Cardiomegaly is present. No significant pericardial effusion. The main pulmonary artery measures 3.2 cm. The right pulmonary artery measures 2 cm. The left pulmonary artery measures 2.2 cm. The pulmonary arteries show no evidence of filling defects. Normal caliber thoracic aorta. MEDIASTINUM AND SILVINO: No mediastinal or hilar lymphadenopathy. ABDOMEN : Hepatosplenomegaly BONES: No acute or aggressive osseous abnormality. IMPRESSION: No acute pulmonary embolism. Extensive diffuse bilateral pulmonary airspace opacities, predominantly in the lower lobes and perihilar regions, consistent with pulmonary edema. Cardiomegaly with mild pulmonary arterial hypertension. Hepatosplenomegaly. /[place] DICTATED BY: LARISSA LEMONS Jr., MD DATE: 01/31/25803 ELECTRONICALLY SIGNED BY: LARISSA LEMONS Jr., MD DATE: 01/31/25803 ASSESSMENT: Hyperkalemia Acute renal failure Acute hypoxemic and hypercarbic respiratory failure now with worsening respiratory distress ARDS Community-acquired pneumonia suspected Pneumocystis Toxic metabolic encephalopathy on admission Acute sepsis on admission without septic shock secondary to community-acquired pneumonia HIV positive newly diagnosed stage IV. Not on anti-retroviral medication CD4 count: 19 Immunocompromise status Suspected TB Obstructive sleep apnea, untreated/undiagnosed Morbid obesity, BMI 33.6 Volume overload PLAN: Labs, diagnostic, radiologic exams reviewed and interpreted by myself and supervising physician. We have reviewed external records in detail There is no need for emergent renal replacement therapy at this time. Continue with Lokelma Renally dose Bactrim Continue with close monitoring of electrolytes and renal function Order CBC, CMP, and electrolytes in am Continue with antibiotics as per ID Continue mechanical ventilation and sedation IV pressors as needed Monitor blood pressure adjust medication doses as needed May use Dilaudid 0.5 mg IV every 6 hours as needed for severe pain Monitor blood sugars Strict intake, output, and daily weight should be monitored Please renally adjust medications Avoid nephrotoxic and nonsteroidal drugs Avoid contrast if possible Will continue to monitor renal function, anemia, electrolytes Treatment plan discussed with patient Questions were answered We have discussed with the other team physicians in detail about the care plan We will continue to monitor the patient closely Total critical care time spent with patient, nursing staff, critical care team over 35 minutes ATTESTATION BY PHYSICIAN I have seen and examined the patient. I reviewed the documentation, medical decision making, and treatment plan as noted by the mid-level provider above. I agree with the findings and plan of care. DARBY PORRAS MD, [facility] Feb 11, 2025 14:33
--- NOTE | 2025-02-11 15:17 | NUR ---
Patient's has a MAP of 56. I relayed this information to Subhash LESTER. Ordered to start the patient on Levophed. Patient is now on Levophed.
[2025-02-11] MEDS: NOREPINEPHRINE 16MG/NS 250ML PREMIX IV SCH (15:41)
--- NOTE | 2025-02-11 18:49 | PN ---
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 Acute hypoxemic respiratory failure POA On Presentation patient's respiratory rate 36, he saturated 267% with high-flow oxygen with nasal cannula. ABG while he was on high-flow oxygen showed pH 7.457, pCO2 21, PO2 63.6, HCO3 14.4. So, he was put back on BiPAP. Chest x-ray on presentation showed diffuse bilateral pneumonia with ARDS type picture. Chest x-ray on 02/04/2025 showed improvement in bilateral infiltrates. CT chest on presentation showed bilateral airspace opacities involving nearly entire lung curtis raising concern for severe diffuse pneumonia/ARDS like pattern Patient is currently intubated on CPAP, weaned off from propofol and fentanyl drips. Plan is to wean off Precedex today, try spontaneous breathing trials and extubate. Continue Solu-Medrol 40mg IV bid DuoNeb inhalation q.4h Pulmonology on board, we will continue to follow the recommendations Suspected Pneumocystis Jirovecii Pneumonia (PJP )POA Chest x-ray on presentation showed diffuse bilateral pneumonia with ARDS type picture CT chest showed bilateral airspace opacities involving nearly entire lung curtis raising concern for severe diffuse pneumonia/ARDS like pattern Continue fluconazole 200 mg IV Q 24 , TMP SMX q.6 Continue on IV cefepime2 g q.12h , doxycycline q.12h IV Pulmonology, Infectious Disease on board. We will follow their recommendations. 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 daily on 02/10/20[address] with [facility] for HIV management. ID on board. Sepsis POA On presentation to ED patient's temperature 100.2, pulse 112, respiratory rate 28, lactic acid 2, procalcitonin 1.55 Chest x-ray showed diffuse bilateral pneumonia with ARDS type picture CT chest showed bilateral airspace opacities involving nearly entire lung curtis raising concern for severe diffuse pneumonia/ARDS like pattern Continue fluconazole 200 mg IV Q 24 , TMP SMX q.6 Continue on IV cefepime2 g q.12h , continue doxycycline q.12h IV Lactic acid today 3.8 We will trend white count, lactic acid Uncontrolled hyperglycemia secondary to steroids Blood glucose in the morning was 322 and well elevated likely from steroids. Continue to monitor the blood glucose level. Continue insulin sliding scale. Tuberculosis R/O POA 3 out of 3 sputum samples collected for AFB smear. Sputum sample is sent for respiratory culture, we will follow up with the culture results. No acid-fast bacilli in smear from first 2 samples, studies to continue. GI prophylaxis with Pepcid 20 mg IV DVT prophylaxis with heparin 5000 SQ q.12h ATTESTATION BY PHYSICIAN I have seen and examined the patient. I reviewed the documentation, medical de cision making, and treatment plan as noted by the resident physician above. I agree with the findings and plan of care. DIANN MITCHELL MD, ABHINAV MD Feb 11, 2025 18:49
[2025-02-11] MEDS: NA ZIRCON CYCLOSIL(LOKELMA 10GM) PO ONE (23:59)
[2025-02-12] VITALS (85 sets, daily range): BP systolic 90–160; BP diastolic 34–96; PULSE 70–140; RESP 12–84; TEMP 98.2–99.4; O2SAT 96–100
--- NOTE | 2025-02-12 03:34 | HMCIMG ---
EXAM: CR CHEST, 1 VIEW CLINICAL HISTORY: Endotracheal tube placement. COMPARISON: None provided TECHNIQUE: Single frontal radiograph of the chest was obtained. Gross patient's rotation during the image acquisition is present. FINDINGS: Lines/Devices: Right sided PICC line with its tip overlying the proximal superior vena cava. Endotracheal tube with its tip 5.3 cm short of catina. Nasogastric catheter with its tip overlying the stomach in the region of the proximal gastric body. Lungs: Interval reduction in the degree of pulmonary parenchymal congestion with clearing of the infiltrates from the right lung. Persistent left lower lobar lung infiltrates, which may represent atelectasis/consolidation. No right sided pleural effusion. Moderate sized left sided pleural effusion causing opacification of the left hemithorax. There is no pneumothorax. Mediastinum and cardiovascular structures: Moderate cardiomegaly. There are calcific atherosclerotic plaques in the aorta. The central airway and mediastinal contours are unremarkable. Bones and soft tissues: Unremarkable. IMPRESSION: In comparison with the previous chest radiograph dated February 10, 2025, the current radiograph demonstrates: 1. Stable endotracheal tube, the right sided PICC line and the nasogastric catheter. 2. Moderate sized left sided pleural effusion causing opacification of the left hemithorax. Persistent left lower lobar lung infiltrates, which may represent atelectasis/consolidation. 3. Interval reduction in the degree of pulmonary parenchymal congestion with resolution of the infiltrates from the right lung. /[place]
[2025-02-12 04:37] LABS: IMMATURE GRANULOCYTE ABSOLUTE 0.13 K/uL (0-1); NUCLEATED RED BLOOD CELLS 0.0 % (0.0-0.19); PLATELET COUNT (AUTO) 138 K/uL (130-400); RED BLOOD CELL COUNT(AUTO) 2.81 MIL/uL (4.50-6.20); RED CELL DISTRIBUTION WIDTH 13.2 % (11.0-15.5); WHITE BLOOD COUNT (AUTO) 7.1 K/uL (4.8-10.8)
[2025-02-12 04:49] LABS: ABG BASE EXCESS -3.7 mmol/L (-2.0-3.0); ABG HCO3 18.9 mmol/L (21.0-28.0); ABG OXYGEN SATURATION 96.2 % (94.0-98.0); ABG PCO2 26 mmHg (35-48); ABG PH 7.485 (7.350-7.450); CARBON MONOXIDE 0.6 % (0.5-1.5); PO2, ARTERIAL BG 88.9 mmHg (83.0-108.0); TEMPERATURE, CELSIUS BG 37.0 CELSIUS (35.5-37.0); VENT MODE, BG ACVC (ROOM AIR)
[2025-02-12 05:02] LABS: ASPARTATE AMINOTRANSFERASE 108.0 U/L (10-37); CREATININE 2.1 mg/dL (0.5-1.3); GLOMERULAR FILTR. RATE CALC 40.0 mL/min (>90); GLUCOSE,RANDOM 112.0 mg/dL (70-105); SODIUM SERUM 132.0 mmol/L (136-145); TOTAL PROTEIN, SERUM 5.1 g/dL (6.0-8.3); UREA NITROGEN, BLOOD 70.0 mg/dL (7-18)
[2025-02-12 05:11] LABS: LYMPHOCYTES % (MANUAL) 1 % (22-44); SEGMENTED NEUTROPHILS % 99 % (40-70)
[2025-02-12 05:12] LABS: MAN.DIFF COMMENT-IMPRESSION MANUAL DIFFERENTIAL; PLATELET MORPHOLOGY COMMENT ADEQUATE
--- NOTE | 2025-02-12 09:00 | NUR ---
ISENTRESS MEDICATION NOT GIVEN THIS MORNING PER BIANCA WICK NP DUE TO ELEVATED POTASSIUM.
[2025-02-12] MEDS: NA ZIRCON CYCLOSIL(LOKELMA 10GM) PO ONE (10:01)
--- NOTE | 2025-02-12 10:43 | PN ---
NEPHROLOGY PROGRESS NOTE Date/Time Patient Seen: Feb 12, 2025 Reason for Consultation: 10:42 SUBJECTIVE: This is a 44-year-old male with HIV positive newly diagnosed He was brought by EMS to the ED for complaints of shortness of breaths for the past two weeks. He has been in the hospital for several days He continues on antibiotics, including Bactrim, as per ID. He was noted to have elevated BUN/creatinine We are consulted for renal failure Renal function continues to worsen Electrolytes show hyperkalemia He has been started on Lokelma BID Renal ultrasound showed partially distended bladder with no hydronephrosis or renal calculus He continues on Lasix, urine output was noted Tolerating Nepro tube feedings He was seen in the ICU, Nurse reports fevers Continues to be intubated and sedated Family at the bedside Prognosis remains guarded REVIEW OF SYSTEMS: Difficult to obtain given status of the patient who remains intubated mechanically ventilated Vital Signs (last 8hr) Date Time Temp Pulse Resp B/P (MAP) Pulse Ox O2 Delivery O2 Flow Rate FiO2 02/11/25 12:30 120 28 145/72 (96) 96 02/11/25 12:15 115 32 146/77 (100) 02/11/25 12:07 103.3 02/11/25 12:00 103.3 Ventilator 40 02/11/25 12:00 112 27 138/70 (92) 02/11/25 12:00 96 Ventilator+ 40 02/11/25 12:00 40 02/11/25 11:45 113 34 129/85 (100) 02/11/25 11:30 107 33 159/80 (106) 02/11/25 11:15 110 32 164/81 (108) 02/11/25 11:12 117 28 02/11/25 11:00 108 33 152/82 (105) 97 02/11/25 10:45 107 32 154/77 (102) 02/11/25 10:30 105 32 151/77 (101) 02/11/25 10:15 108 32 148/73 (98) 02/11/25 10:00 108 32 143/80 (101) 02/11/25 09:45 107 32 141/75 (97) 02/11/25 09:30 106 31 139/69 (92) 02/11/25 09:30 111 40 02/11/25 09:15 105 34 135/71 (92) 95 02/11/25 09:00 105 33 136/69 (91) 95 02/11/25 08:45 108 33 138/72 (94) 93 02/11/25 08:30 104 32 132/69 (90) 92 02/11/25 08:15 102 31 123/59 (80) 92 02/11/25 08:00 96 Ventilator+ 40 02/11/25 08:00 102.2 Ventilator 40 02/11/25 08:00 102 30 129/59 (82) 93 02/11/25 08:00 40 02/11/25 07:45 103 28 134/56 (82) 94 02/11/25 07:30 106 33 136/58 (84) 93 02/11/25 07:15 105 28 137/59 (85) 94 02/11/25 07:00 107 32 145/76 (99) 98 02/11/25 06:59 102 31 02/11/25 06:58 105 40 02/11/25 06:45 105 32 142/70 (94) 97 PHYSICAL EXAM: General: acutely ill, sedated, intubated, and mechanically ventilated HEENT: head is atraumatic, pupils equal and reactive, ET tube in place Neck: supple, no masses, no lymphadenopathy, no thyromegaly, no JVD Lungs: decreased breath sounds bilaterally, symmetrical chest movement Cardio: regular rate, S1 and S2 normal, no rub or gallop Abdomen: soft, non tender, no distension, no organomegaly Extremities: trace edema bilateral lower extremities, no cyanosis or clubbing Skin: no rashes or suspicious lesions Neuro: sedated Current Medications Medications (Trade) Dose Ordered Sig/Amada Route Start Time Stop Time Status Last Admin Dose Admin Albuterol (DUOneb) 1 udvial [id number] IH 01/30/25 22:00 03/01/25 21:59 02/09/25 10:30 1 UDVIAL Cefepime HCl (MAXipime 2 gm vial) 2 gm Q12H IVPB 02/01/25 14:00 02/11/25 13:59 02/09/25 01:56 2 GM Dexmedetomidine/ Sodium Chloride (PRECEdex 400MCG/ 100ML-NS) 400 mcg PROTOCOL IV 02/04/25 23:45 03/06/25 23:44 02/09/25 05:56 400 MCG Doxycycline Hyclate 250 ml @ 125 mls/hr Q12H IV 01/31/25 14:00 02/10/25 13:59 02/09/25 01:56 125 MLS/HR Famotidine (Pepcid 20mg Vial) 20 mg DAILY IV 01/31/25 09:00 03/02/25 08:59 02/09/25 08:28 20 MG Fentanyl Citrate 100 ml @ 2.5 mls/hr PROTOCOL IV 02/05/25 11:30 02/05/25 19:59 DC 02/05/25 17:13 2.5 MLS/HR Fentanyl/Sodium Chloride 250 ml @ 0.1 mls/hr PROTOCOL IV 02/05/25 20:00 02/08/25 15:52 DC 02/07/25 22:11 0.1 MLS/HR Fluconazole/ Sodium Chloride (DiFLUCan 200 MG/ NS 100 ML) 200 mg DAILY22 IV 02/02/25 22:00 03/01/25 17:59 02/08/25 23:07 200 MG Fluconazole/ Sodium Chloride (DiFLUCan 200 MG/ NS 100 ML) 200 mg Q24H IV 01/30/25 18:00 02/02/25 14:38 DC 02/01/25 18:17 200 MG Furosemide (LASix 20MG VIAL) 20 mg Q8H IV 02/06/25 16:00 03/08/25 15:59 02/09/25 08:02 20 MG Furosemide (LASix 40MG VIAL) 20 mg ONCE STAT IV 01/31/25 05:37 01/31/25 05:40 DC 01/31/25 05:45 20 MG Heparin Sodium (Porcine) (HEParin 5,000 UNIT VIAL) 5,000 unit Q12H SQ 01/31/25 09:00 03/02/25 08:59 02/09/25 08:47 5,000 UNIT Insulin Glargine (LANtus 100 UNITS/ML 10 ML VIAL) 20 units BID SQ 02/04/25 21:00 02/06/25 14:49 DC 02/06/25 10:03 20 UNITS Insulin Glargine (LANtus 100 UNITS/ML 10 ML VIAL) 30 units BID SQ 02/06/25 21:00 03/08/25 20:59 02/09/25 08:36 30 UNITS Insulin Human Regular (humuLIN R 100 UNIT/ML 3ML) INSULIN SLIDING SCAL... ACHS SQ 02/07/25 16:30 02/07/25 11:56 DC Insulin Human Regular (humuLIN R 100 UNIT/ML 3ML) INSULIN SLIDING SCAL... Q6H6 SQ 01/31/25 06:00 02/07/25 11:55 DC 02/07/25 06:03 5 UNIT Insulin Human Regular (humuLIN R 100 UNIT/ML 3ML) INSULIN SLIDING SCAL... Q6H6 SQ 02/07/25 12:00 03/09/25 11:59 02/08/25 18:27 4 UNIT Methylprednisolone Sodium Succinate (Solu-medROL 40MG) 40 mg BID IVP 01/30/25 21:00 01/31/25 04:16 DC 01/30/25 21:18 40 MG Methylprednisolone Sodium Succinate (Solu-medROL 40MG) 40 mg BID IVP 02/07/25 21:00 03/09/25 20:59 02/09/25 08:28 40 MG Methylprednisolone Sodium Succinate (Solu-medROL 40MG) 40 mg Q8H IVP 01/31/25 04:30 02/02/25 11:57 DC 02/02/25 11:47 40 MG Methylprednisolone Sodium Succinate (Solu-medROL 40MG) 60 mg Q6H IVP 02/02/25 12:00 02/07/25 15:17 DC 02/07/25 11:27 60 MG Metoclopramide HCl (regLAN 10MG IV) 10 mg Q8H IVP 02/06/25 16:00 03/08/25 15:59 02/09/25 08:02 10 MG Morphine Sulfate (morPHINE 2MG SYG) 2 mg ONCE STAT IVP 01/31/25 05:41 01/31/25 05:45 DC 01/31/25 05:51 2 MG Multi-Ingred Cream/Lotion/Oil/ Oint (Artificial Tears Eye Oint) Apply ointment to both e... Q4H OU 01/31/25 15:00 03/02/25 14:59 02/09/25 06:37 1 APPL Norepinephrine Bitartrate (Norepineph 16 Mg/250ml NS Premix) sbp>90 PROTOCOL IV 02/05/25 11:30 03/07/25 11:29 Pharmacy Profile Note (Pharmacy Communication) 1 each ONCE MISC 02/05/25 11:30 02/05/25 11:23 DC Piperacillin Sod/ Tazobactam Sod (Zosyn 3.375gm+NS 50ml) 3.375 gm Q8H IVPB 01/31/25 09:30 01/31/25 12:56 DC 01/31/25 11:04 3.375 GM Piperacillin Sod/ Tazobactam Sod (Zosyn 3.375gm+NS 50ml) 3.375 gm ZOSY8 IVPB 01/31/25 13:00 02/01/25 13:33 DC 02/01/25 11:54 3.375 GM Polyethylene Glycol (MIRalax 3350 17 GM POWD.PACK) 17 gm DAILY PO 02/07/25 11:30 03/09/25 11:29 02/09/25 08:28 17 GM Sodium Bicarbonate (Sodium Bicarb 50meq 50ml Vial) 50 meq Q8H6 IV 02/06/25 14:00 02/07/25 16:00 DC 02/07/25 14:47 50 MEQ Sodium Chloride 1,000 ml @ 100 mls/hr Q10H IV 01/30/25 20:00 01/31/25 05:38 DC 01/30/25 21:18 100 MLS/HR Sodium Zirconium Cyclosilicate (Lokelma 10gm Powder) 10 gm BID PO 02/09/25 12:00 02/10/25 11:59 02/09/25 12:26 10 GM Trimethoprim/ Sulfamethoxazole 480 mg/Dextrose 500 ml @ 250 mls/hr Q6H IV 01/30/25 21:00 02/01/25 11:57 DC 02/01/25 02:49 250 MLS/HR Trimethoprim/ Sulfamethoxazole 480 mg/Dextrose 500 ml @ 250 mls/hr Q6H IV 02/01/25 12:00 02/11/25 11:59 02/09/25 12:21 250 MLS/HR Trimethoprim/ Sulfamethoxazole / Dextrose 100 ml @ 100 mls/hr AD IV 01/30/25 20:00 02/09/25 19:59 UNV Wound Care/ Dressing Products (Venelex Ointment) BID TP 02/09/25 21:00 03/11/25 20:59 LABORATORY: [ ] Hematology Labs: Test 02/12/25 04:28 02/11/25 04:22 Range/Units White Blood Count 7.1 4.8-10.8 K/uL Red Blood Count 2.81 L 4.50-6.20 MIL/uL Hemoglobin 7.9 L 14.0-18.0 g/dL Hematocrit 23.4 L 42-54 % Mean Corpuscular Volume 83.3 79-99 fL Mean Corpuscular Hemoglobin 28.1 27.0-33.0 pg Mean Corpuscular Hemoglobin Concent 33.8 32.0-36.0 g/dL Red Cell Distribution Width 13.2 11.0-15.5 % Platelet Count 138 # 130-400 K/uL Mean Platelet Volume 10.1 7.5-10.5 fL Immature Granulocyte % (Auto) 1.8 H 0-1 % Neutrophils (%) (Auto) 95.2 H 40.0-77.0 % Lymphocytes (%) (Auto) 2.0 L 21.0-51.0 % Monocytes (%) (Auto) 1.0 L 3.0-13.0 % Eosinophils (%) (Auto) 0.0 0.0-8.0 % Basophils (%) (Auto) 0.0 0.0-5.0 % Neutrophils # (Auto) 6.8 1.8-7.7 K/uL Lymphocytes # (Auto) 0.1 L 1.0-4.8 K/uL Monocytes # (Auto) 0.1 0.1-1.0 K/uL Eosinophils # (Auto) 0.00 0.00-0.70 K/uL Basophils # (Auto) 0.00 0.00-0.20 K/uL Absolute Immature Granulocyte (auto 0.13 0-1 K/uL Segmented Neutrophils % 99 H 40-70 % Lymphocytes % (Manual) 1 L 22-44 % Nucleated Red Blood Cells 0.0 0.0-0.19 % Differential Comment MANUAL DIFFERENTIAL White Cell Morphology Comment Platelet Morphology Comment ADEQUATE Red Blood Cell Morphology HYPOCHROM CELLS 1+ Platelet Morphology PLT CLUMPS PRESENT Chemistry Labs: Test 02/12/25 06:13 02/12/25 04:28 02/11/25 04:22 Range/Units Whole Blood Glucose 134 H 70-110 MG/DL Sodium Level 132 L 136-145 mmol/L Potassium Level 5.3 H 3.5-5.1 mmol/L Chloride Level 100 L 101-111 mmol/L Carbon Dioxide Level 20 L 21-32 mmol/L Blood Urea Nitrogen 70 H 7-18 mg/dL Creatinine 2.1 H 0.5-1.3 mg/dL Glomerular Filtration Rate Calc 40 >90 mL/min Random Glucose 112 H 70-105 mg/dL Total Calcium 7.3 L 8.5-10.1 mg/dL Total Bilirubin 0.5 0.2-1.0 mg/dL Aspartate Amino Transf (AST/SGOT) 108 H 10-37 U/L Alanine Aminotransferase (ALT/SGPT) 58 12-78 U/L Alkaline Phosphatase 114 50-136 U/L Total Protein 5.1 L 6.0-8.3 g/dL Albumin 1.3 L 3.5-5.0 g/dL Lactic Acid Level 3.8 H 0.8-2.5 mmol/L Phosphorus Level 5.2 H 2.5-4.9 mg/dL DIAGNOSTICS / RADIOLOGY: [place] [address] IMAGING REPORT Signed PATIENT: CHARY HERNANDEZ MR#: [id number] : 1980 SEX: M AGE: 44 LOCATION: [facility] ORDER 2300 STATUS: ADM IN REPORT#: [id number] SERVICE 0600 REASON: pp ORDERING PHYSICIAN: BIANCA WICK PAC PROCEDURE: CXR1VW - CHEST 1VW EXAM: CR CHEST, 1 VIEW CLINICAL HISTORY: Endotracheal tube placement. COMPARISON: None provided TECHNIQUE: Single frontal radiograph of the chest was obtained. Gross patient's rotation during the image acquisition is present. FINDINGS: Lines/Devices: Right sided PICC line with its tip overlying the proximal superior vena cava. Endotracheal tube with its tip 5.3 cm short of catina. Nasogastric catheter with its tip overlying the stomach in the region of the proximal gastric body. Lungs: Interval reduction in the degree of pulmonary parenchymal congestion with clearing of the infiltrates from the right lung. Persistent left lower lobar lung infiltrates, which may represent atelectasis/consolidation. No right sided pleural effusion. Moderate sized left sided pleural effusion causing opacification of the left hemithorax. There is no pneumothorax. Mediastinum and cardiovascular structures: Moderate cardiomegaly. There are calcific atherosclerotic plaques in the aorta. The central airway and mediastinal contours are unremarkable. Bones and soft tissues: Unremarkable. IMPRESSION: In comparison with the previous chest radiograph dated February 10, 2025, the current radiograph demonstrates: 1. Stable endotracheal tube, the right sided PICC line and the nasogastric catheter. 2. Moderate sized left sided pleural effusion causing opacification of the left hemithorax. Persistent left lower lobar lung infiltrates, which may represent atelectasis/consolidation. 3. Interval reduction in the degree of pulmonary parenchymal congestion with resolution of the infiltrates from the right lung. /Basin DICTATED BY: LEXX GRIGGS MD DATE: 02/12/25432 ELECTRONICALLY SIGNED BY: LEXX GRIGGS MD DATE: 02/12/25432 PATIENT: CHARY HERNANDEZ MR#: [id number] : 1980 SEX: M AGE: 44 LOCATION: [facility] ORDER 99 STATUS: ADM IN REPORT#: [id number] SERVICE 0600 REASON: pp ORDERING PHYSICIAN: BIANCA WICK PAC PROCEDURE: CXR1VW - CHEST 1VW EXAM: CR Chest, 1 View. CLINICAL HISTORY: Endotracheal tube. COMPARISON: 02/09/2025 FINDINGS: The endotracheal tube is seen with its tip terminating about 5.6 cm above the catina. The nasogastric tube is seen in the left hemidiaphragm; the tip is not visualized. LUNGS: Mild interval reduction in the aeration of both lungs. PLEURAL SPACES: No definite pleural effusion or pneumothorax. MEDIASTINUM: Cardiac size is stable. BONES: No aggressive appearing osseous lesion seen. IMPRESSION: 1. Endotracheal tube tip 5.6 cm above the catina. 2. Mild interval reduction in the aeration of both lungs. /Eastern DICTATED BY: LARISSA LEMONS Jr., MD DATE: 02/10/251510 ELECTRONICALLY SIGNED BY: LARISSA LEMONS Jr., MD DATE: 02/10/251510 PATIENT: CHARY HERNANDEZ MR#: [id number] : 1980 SEX: M AGE: 44 LOCATION: [facility] ORDER 99 STATUS: ADM IN REPORT#: [id number] SERVICE 06 REASON: Respirateory failure ORDERING PHYSICIAN: NETO STARR PROCEDURE: CXR1VW - CHEST 1VW EXAM: CR Chest, 1 View. CLINICAL HISTORY: Respiratory failure COMPARISON: 02/08/2025 FINDINGS: The endotracheal tube is seen with its tip terminating about 5.4 cm above the catina. The nasogastric tube is seen in the left hemidiaphragm; the tip is not visualized. LUNGS: Essentially stable appearance of bilateral lung curtis, with persistent right basilar and diffuse left lung airspace disease. PLEURAL SPACES: No evidence of pleural effusion or pneumothorax. MEDIASTINUM: The cardiac size is stable. BONES: No aggressive appearing osseous lesion seen. IMPRESSION: 1. Endotracheal tube tip 5.4 cm above catina. 2. Nasogastric tube is demonstrated below the left hemidiaphragm; the tip is not visualized. 3. Essentially stable appearance of bilateral lung curtis, with persistent right basilar and diffuse left lung airspace disease. /Basin DICTATED BY: LARISSA LEMONS Jr., MD DATE: 02/09/251057 ELECTRONICALLY SIGNED BY: LARISSA LEMONS Jr., MD DATE: 02/09/251057 PATIENT: CHARY HERNANDEZ MR#: [id number] : 1980 SEX: M AGE: 44 LOCATION: [facility] ORDER 99 STATUS: ADM IN REPORT#: [id number] SERVICE 06 REASON: pp ORDERING PHYSICIAN: BIANCA WICK PAC PROCEDURE: CXR1VW - CHEST 1VW EXAM: CR Chest, 1 View. CLINICAL HISTORY: Follow up COMPARISON: 02/07/2025 FINDINGS: The endotracheal tube tip is 6.8 cm away from the catina. The nasogastric tube is seen below the left hemidiaphragm; the tip is not visualized. LUNGS: Essentially stable appearance of the bilateral lung curtis with mild bibasilar atelectasis and questionable small bilateral pleural effusions. PLEURAL SPACES: No evidence of pneumothorax. MEDIASTINUM: Cardiac size is stable. Mild stable pulmonary vascular congestion. BONES: No acute osseous abnormality. IMPRESSION: 1. Stable appearance of bilateral lung curtis with mild bibasilar atelectasis and questionable small bilateral pleural effusions. 2. Endotracheal tube tip 6.8 cm from catina. 3. Nasogastric tube below left hemidiaphragm, tip not visualized. /Basin DICTATED BY: LARISSA LEMONS Jr., MD DATE: 02/09/251109 ELECTRONICALLY SIGNED BY: LARISSA LEMONS Jr., MD DATE: 02/09/251109 PATIENT: CHARY HERNANDEZ MR#: [id number] : 1980 SEX: M AGE: 44 LOCATION: [facility] ORDER 2300 STATUS: ADM IN REPORT#: [id number] SERVICE 06 REASON: pp ORDERING PHYSICIAN: BIANCA WICK PAC PROCEDURE: CXR1VW - CHEST 1VW EXAM: CR Chest, 2 View. CLINICAL HISTORY: Intubated. COMPARISON: 02/06/2025 FINDINGS: The endotracheal tube is seen with its tip terminating about 6.7 cm above the catina. The nasogastric tube terminates in the proximal stomach. LUNGS: Interval improvement in basilar predominant bilateral diffuse airspace disease is present. PLEURAL SPACES: No definite pleural effusion or pneumothorax. MEDIASTINUM: Cardiac size is stable. BONES: No aggressive appearing osseous lesion seen. IMPRESSION: 1. Interval improvement in bilateral basilar predominant airspace disease. 2. Endotracheal tube tip positioned 6.7 cm above catina. 3. The nasogastric tube terminates in the proximal stomach. /Eastern DICTATED BY: LARISSA LEMONS Jr., MD DATE: 02/07/251748 ELECTRONICALLY SIGNED BY: LARISSA LEMONS Jr., MD DATE: 02/07/251748 PATIENT: CHARY HERNANDEZ MR#: [id number] : 1980 SEX: M AGE: 44 LOCATION: [facility] ORDER 1341 STATUS: ADM IN REPORT#: [id number] SERVICE 1337 REASON: JUAN ORDERING PHYSICIAN: DARBY PORRAS MD PROCEDURE: RENAL - US RENAL SONOGRAM EXAMINATION: ULTRASOUND OF THE RETROPERITONEUM. CLINICAL HISTORY: JUAN. COMPARISON: None. TECHNIQUE: Real-time grayscale ultrasound images of the kidneys. FINDINGS: The kidneys are normal in caliber, the right kidney measures 12.9 x 6.5 x 6.5 cm and the left kidney measures 11.0 x 5.6 x 5.5 cm in its craniocaudal, AP, and transverse dimensions respectively. There is normal renal cortical thickness, and cortical echogenicity. There is no renal calculus or hydronephrosis. The urinary bladder is partially distended with mild wall thickening (0.6 cm). There are no calculi in the urinary bladder. IMPRESSION: Urinary bladder wall thickening of concern for cystitis. /Eastern DICTATED BY: LARISSA LEMONS Jr., MD DATE: 02/07/25716 ELECTRONICALLY SIGNED BY: LARISSA LEMONS Jr., MD DATE: 02/07/25716 PATIENT: CHARY HERNANDEZ MR#: [id number] : 1980 SEX: M AGE: 44 LOCATION: [facility] ORDER 1118 STATUS: ADM IN REPORT#: [id number] SERVICE 1145 REASON: post intubation ORDERING PHYSICIAN: COMPA PATRICK MD PROCEDURE: CXR1VW - CHEST 1VW EXAM: CR Chest, 2 View. CLINICAL HISTORY: post intubation COMPARISON: Radiograph from February 04, 2025 FINDINGS: Endotracheal tubes in satisfactory position, tip terminating 3.5 cm above the catina. Right PICC terminates overlying the SVC. Bibasilar airspace disease may reflect an infectious process. No pleural effusion or pneumothorax. Heart size is stable. Pulmonary vessels are within normal limits. IMPRESSION: 1. Endotracheal tube and right PICC line in satisfactory positions. 2. Bibasilar airspace disease, possibly infectious. /Basin DICTATED BY: LARISSA LEMONS Jr., MD DATE: 02/05/251408 ELECTRONICALLY SIGNED BY: LARISSA LEMONS Jr., MD DATE: 02/05/251408 PATIENT: CHARY HERNANDEZ MR#: [id number] : 1980 SEX: M AGE: 44 LOCATION: [facility] ORDER 9 STATUS: ADM IN REPORT#: [id number] SERVICE 8 REASON: ngt placement for TF ORDERING PHYSICIAN: ISAC MATHEW MD PROCEDURE: ABD 1VW - ABD 1VW EXAM: CR Abdomen, 1 View. CLINICAL HISTORY: ngt placement for TF COMPARISON: None provided. FINDINGS: BOWEL: The transverse colon is filled with gas and fecal content could be due to constipation Nasogastric tubes projecting below lthe eft hemidiaphragm in the stomach PERITONEUM/SOFT TISSUES: No free air evident. No pathologic appearing calcification. BONES: No acute osseous abnormality. IMPRESSION: The nasogastric tube is projected below the left hemidiaphragm over the stomach, tip is located in the body portion of the stomach Gas and fecal-loaded transverse colon consistent with constipation /Eastern DICTATED BY: LARISSA LEMONS Jr., MD DATE: 02/03/251138 ELECTRONICALLY SIGNED BY: LARISSA LEMONS Jr., MD DATE: 02/03/251138 PATIENT: CHARY HERNANDEZ MR#: [id number] : 1980 SEX: M AGE: 44 LOCATION: [facility] ORDER 1 STATUS: ADM IN REPORT#: [id number] SERVICE 5 REASON: hypoxia ORDERING PHYSICIAN: BIANCA GARCIA PROCEDURE: ECHO CMP - ECHO 2-D COMPLETE APPROVED REPORT EXAM: Two-dimensional and M-mode echocardiogram with Doppler and color Doppler. INDICATION ICD: R06.02 Shortness of breath 2D Dimensions RVDd 4.5 cm LVEF(%) 58.7 (>50%) LVED Vol(simp.) 152.0 mL IVSd 1.2 (0.7-1.1cm) FS(%) 32 % LVES Vol(simp.) 70.0 mL LVDd 6.1 (3.8-5.6cm) LA (2D) 4.0 (1.6-4.0cm) LVEF(%, simp.) 54 % PWd 0.8 (0.7-1.1cm) Ao Root(2D) 3.4 (2.0-3.7cm) LA ESV INDEX (BP) 26.38 mL/m2 IVSs 1.5 cm LVOT diam 2.7 (1.8-2.4cm) LVDs 4.1 (2.5-4.0cm) IVC diam 2.7 cm PWs 1.1 cm Deformation Strain Apical 4 -16.1 % Apical 2 -16.4 % Apical 3 -17.4 % Global Strain -16.6 % M-Mode Dimensions EPSS 0.3 cm LA (MM) 4.2 (1.6-4.0cm) Ao Root(MM) 4.0 (2.0-3.7cm) Aortic Valve AoV Vmax 1.4 m/s Ao Peak GR 7.3 mmHg LVOT Vmax 1.2 m/s AoV VTI 0.3 m Ao Mean GR 4.7 mmHg LVOT VTI 0.23 m MINH (VMAX) 5.28 cm2 MINH (VTI) 5.3 cm2 Mitral Valve MV E Vmax 88.4 cm/s DECEL Time 146 ms MV A Vmax 76.4 cm/s P 1/2 T 41 ms E/A ratio 1.2 MVA (PHT) 5.4 cm2 TDI E/E' Medial 10.2 E/E' Lateral 10.5 Medial E' Peak V 8.64 cm/s Lateral E' Peak V 8.43 cm/s Pulmonary Valve PV Vmax 0.8 m/s PV Peak GR 2.3 mmHg Tricuspid Valve TR Vmax 1.1 m/s RAP (EST) 8 mmHg RVSP 12.9 mmHg TR Peak GR 4.9 mmHg Left Ventricle The left ventricle is normal size. GLS -16.0% There is normal LV segmental wall motion. There is mild left ventricular wall thickness. LVEF is 55%. The LV diastolic function was unable to be assessed due to atrial arrhythmia. Right Ventricle The right ventricle is normal size. The right ventricular systolic function is normal. Atria The left atrium size is normal. The right atrium size is normal. Aortic Valve The aortic valve is normal in structure. No aortic regurgitation is present. There is no aortic valvular stenosis. Mitral Valve The mitral valve is normal in structure. There is trace of mitral valve regurgitation noted. There is no mitral valve stenosis. Tricuspid Valve The tricuspid valve is normal in structure. There is no tricuspid valve regurgitation noted. Pulmonic Valve The pulmonary valve is normal in structure. There is mild pulmonic valvular regurgitation. Great Vessels The aortic root is normal in size. IVC is dilated and collapses >50% with inspiration. Pericardium There is no pericardial effusion. Other Information Quality : Technically diffcult study due to body habitus Conclusion LVEF is 55%. DICTATED BY: CAROL GALLAGHER MD DATE: 01/31/25844 ELECTRONICALLY SIGNED BY: CAROL GALLAGHER MD DATE: 01/31/252052 PATIENT: CHARY HERNANDEZ MR#: [id number] : 1980 SEX: M AGE: 44 LOCATION: [facility] ORDER STATUS: ADM IN [facility] REPORT#: [id number] SERVICE REASON: r/o DVT ORDERING PHYSICIAN: BIANCA GARCIA PROCEDURE: VENOUS GRACIE - US VENOUS DOPPLER BILATERAL EXAM: US for Deep Venous Thrombosis, bilateral Lower Extremity. CLINICAL HISTORY: Rule out deep venous thrombosis. TECHNIQUE: Real-time ultrasound scan of the veins of the bilateral lower extremity with color Doppler flow, spectral waveform analysis and compression. COMPARISON: None provided. FINDINGS: DEEP VEINS: The common femoral, superficial femoral, and popliteal veins are echolucent and compressible. There is normal color Doppler flow throughout. The visualized calf veins appear patent. SOFT TISSUES: No popliteal fossa cyst or other abnormalities. IMPRESSION: No deep venous thrombosis is evident on bilateral lower extremity examination. /Basin DICTATED BY: LARISSA LEMONS Jr., MD DATE: 01/31/25400 ELECTRONICALLY SIGNED BY: LARISSA LEMONS Jr., MD DATE: 01/31/25400 PATIENT: CHARY HERNANDEZ MR#: [id number] : 1980 SEX: M AGE: 44 LOCATION: [facility] ORDER STATUS: ADM IN REPORT#: [id number] SERVICE REASON: r/o P.E. ORDERING PHYSICIAN: BIANCA GARCIA PROCEDURE: CHES PE - CT CHEST PE PROTOCOL WWO CONT EXAMINATION: CT Chest, with intravenous contrast CLINICAL HISTORY: Patient presents to rule out pulmonary embolism. TECHNIQUE: Axial computed tomography images of the chest, with intravenous contrast. Multiplanar reformations were generated and reviewed. CONTRAST: With intravenous contrast. COMPARISON: None provided. FINDINGS: CHEST: LUNGS: The lungs demonstrate extensive diffuse consolidation and airspace opacities and ground-glassing throughout the bilateral lungs, predominantly involving the lower lobes and perihilar regions. No pulmonary mass. PLEURAL SPACES: No pneumothorax or pleural effusion. CARDIOVASCULAR: Cardiomegaly is present. No significant pericardial effusion. The main pulmonary artery measures 3.2 cm. The right pulmonary artery measures 2 cm. The left pulmonary artery measures 2.2 cm. The pulmonary arteries show no evidence of filling defects. Normal caliber thoracic aorta. MEDIASTINUM AND SILVINO: No mediastinal or hilar lymphadenopathy. ABDOMEN : Hepatosplenomegaly BONES: No acute or aggressive osseous abnormality. IMPRESSION: No acute pulmonary embolism. Extensive diffuse bilateral pulmonary airspace opacities, predominantly in the lower lobes and perihilar regions, consistent with pulmonary edema. Cardiomegaly with mild pulmonary arterial hypertension. Hepatosplenomegaly. /Basin DICTATED BY: LARISSA LEMONS Jr., MD DATE: 01/31/25803 ELECTRONICALLY SIGNED BY: LARISSA LEMONS Jr., MD DATE: 01/31/25803 ASSESSMENT: Hyperkalemia Acute renal failure Acute hypoxemic and hypercarbic respiratory failure now with worsening respiratory distress ARDS Community-acquired pneumonia suspected Pneumocystis Toxic metabolic encephalopathy on admission Acute sepsis on admission without septic shock secondary to community-acquired pneumonia HIV positive newly diagnosed stage IV. Not on anti-retroviral medication CD4 count: 19 Immunocompromise status Suspected TB Obstructive sleep apnea, untreated/undiagnosed Morbid obesity, BMI 33.6 Volume overload PLAN: Labs, diagnostic, radiologic exams reviewed and interpreted by myself and supervising physician. We have reviewed external records in detail There is no need for emergent renal replacement therapy at this time. Continue with Lokelma Renally dose Bactrim Continue with close monitoring of electrolytes and renal function Order CBC, CMP, and electrolytes in am Continue with antibiotics as per ID Continue mechanical ventilation and sedation IV pressors as needed Monitor blood pressure adjust medication doses as needed May use Dilaudid 0.5 mg IV every 6 hours as needed for severe pain Monitor blood sugars Strict intake, output, and daily weight should be monitored Please renally adjust medications Avoid nephrotoxic and nonsteroidal drugs Avoid contrast if possible Will continue to monitor renal function, anemia, electrolytes Treatment plan discussed with patient Questions were answered We have discussed with the other team physicians in detail about the care plan We will continue to monitor the patient closely Total critical care time spent with patient, nursing staff, critical care team over 35 minutes GENA HILLIARD Feb 12, 2025 10:43
--- NOTE | 2025-02-12 11:53 | PN ---
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 patient's respiratory rate 36, he saturated 267% with high-flow oxygen with nasal cannula. ABG while he was on high-flow oxygen showed pH 7.457, pCO2 21, PO2 63.6, HCO3 14.4. So, he was put back on BiPAP. Chest x-ray on presentation showed diffuse bilateral pneumonia with ARDS type picture. Chest x-ray on 02/04/2025 showed improvement in bilateral infiltrates. CT chest on presentation showed bilateral airspace opacities involving nearly entire lung curtis raising concern for severe diffuse pneumonia/ARDS like patter n Patient is currently intubated on CPAP, weaned off from propofol and fentanyl drips. Plan is to wean off Precedex today, try spontaneous breathing trials and extubate. Continue Solu-Medrol 40mg IV bid DuoNeb inhalation q.4h Pulmonology on board, we will continue to follow the recommendations Suspected Pneumocystis Jirovecii Pneumonia (PJP )POA Chest x-ray on presentation showed diffuse bilateral pneumonia with ARDS type picture CT chest showed bilateral airspace opacities involving nearly entire lung curtis raising concern for severe diffuse pneumonia/ARDS like pattern Continue fluconazole 200 mg IV Q 24 , TMP SMX q.6 Continue on IV cefepime2 g q.12h , doxycycline q.12h IV Pulmonology, Infectious Disease on board. We will follow their recommendations. HIV infection with AIDS as he has a CD4 count of 19 Patient had history of on unsafe sexual practices with multiple partners reported by her sister HIV1 and 2 Ab, HIV P 24 Ag evaluation showed preliminary positive for both HIV1 and 2 antigen/antibody, 4th gen preliminary reactive Absolute CD4 count 19, CD4/CD8 ratio 0.04 HIV 1RNA PCR showed a viral load of [id number] Infectious Disease started Isentress 400 mg b.i.d., travuda tablet p.o. daily on 02/10/2025 Case management working with [facility] for HIV management. ID on board. Sepsis POA On presentation to ED patient's temperature 100.2, pulse 112, respiratory rate 28, lactic acid 2, procalcitonin 1.55 Chest x-ray showed diffuse bilateral pneumonia with ARDS type picture CT chest showed bilateral airspace opacities involving nearly entire lung curtis raising concern for severe diffuse pneumonia/ARDS like pattern Continue fluconazole 200 mg IV Q 24 , TMP SMX q.6 Continue on IV cefepime2 g q.12h , continue doxycycline q.12h IV Lactic acid today 3.8 We will trend white count, lactic acid Uncontrolled hyperglycemia secondary to steroids Blood glucose in the morning was 322 and well elevated likely from steroids. Continue to monitor the blood glucose level. Continue insulin sliding scale. Tuberculosis R/O POA 3 out of 3 sputum samples collected for AFB smear. Sputum sample is sent for respiratory culture, we will follow up with the culture results. No acid-fast bacilli in smear from first 2 samples, studies to continue. GI prophylaxis with Pepcid 20 mg IV DVT prophylaxis with heparin 5000 SQ q.12h ATTESTATION BY PHYSICIAN I have seen and examined the patient. I reviewed the documentation, medical decision making, and treatment plan as noted by the resident physician above. I agree with the findings and plan of care. DIANN MITCHELL MD, ADIL SHAH QUADRI MD Feb 12, 2025 11:53
--- NOTE | 2025-02-12 11:59 | PN ---
[facility] PROGRESS NOTE Date Patient Seen: Feb 12, 2025 Time of Visit: 11:54 Supervising Physician: [Dr. Brush ] Primary Care Physician: [Avi LESTER] Outpatient Specialists: [ ] Inpatient Consults: [Dr. Sigala-ID, [facility] team-ICU] PROBLEM LIST: Acute hypoxemic and hypercarbic respiratory failure ARDS Community-acquired pneumonia suspected Pneumocystis Toxic metabolic encephalopathy on admission Acute sepsis on admission without septic shock secondary to community-acquired pneumonia HIV positive newly diagnosed stage IV. Not on anti-retroviral medication CD4 count: 19 Immunocompromise status Obstructive sleep apnea, untreated/undiagnosed Morbid obesity, BMI 33.6 JUAN Volume overload INTERVAL HISTORY: Patient seen and examined all labs have been reviewed. Family at bedside. Patient has been afebrile. Patient continues on Ventilator support, we have increased PEEP 8 with 40% FIO2 Potassium at 5.3 patient on Bactrim which has been increasing his potassium Repeat Blood and Sputum cultures pending Plan: Continue Respiratory support K5.3- Lokelma Continue Telemetry Follow Blood and sputum cultures Continue on Cefepime, Doxy, Bactrim, and fluconazole per ID. Follow nephrology recommendations, avoid and nephrotoxic medications. Follow daily chest x-ray and labs. Decrease Sedations. Will attempt SBTS. Total critical care time spent 40 minutes, this excludes any procedures performed or any time spent in educational or teaching. REVIEW OF SYSTEMS: Patient on Precedex drip, unable to obtain information from patient. PHYSICAL EXAM: Obese GENERAL: on Vent assistance, responding to self HEENT: EOMI, Sclera non icteric, moist mucosa NECK: Supple, no JVD, trachea midline LUNGS: Fine crackles bilaterally. HEART: Regular rate and rhythm. Normal S1 and S2, without murmurs ABD: Abdomen soft, nontender. Bowel sounds present, obese EXT: No clubbing cyanosis or edema : Dias in situ NEURO: sedated Vital Signs (last 8hr) Date Time Temp Pulse Resp B/P (MAP) Pulse Ox O2 Delivery O2 Flow Rate FiO2 02/12/25 11:45 82 40 02/12/25 11:30 96 Ventilator+ 40 02/12/25 09:05 77 40 02/12/25 08:00 40 02/12/25 08:00 98.2 02/12/25 07:30 96 Ventilator+ 40 02/12/25 06:45 77 20 130/71 (90) 100 02/12/25 06:31 75 32 02/12/25 06:30 75 40 02/12/25 06:30 75 20 127/68 (87) 98 02/12/25 06:15 75 20 128/70 (89) 98 02/12/25 06:00 73 20 120/64 (82) 98 02/12/25 05:45 77 20 125/66 (85) 99 02/12/25 05:30 73 20 126/68 (87) 97 02/12/25 05:15 72 20 110/59 (76) 97 02/12/25 05:00 73 20 118/61 (80) 96 02/12/25 04:45 73 20 112/61 (78) 96 02/12/25 04:30 73 20 107/54 (71) 97 02/12/25 04:15 75 20 110/61 (77) 95 02/12/25 04:00 98.4 75 20 116/63 (80) 94 02/12/25 04:00 40 02/12/25 04:00 98.4 Ventilator 40 02/12/25 04:00 96 Ventilator+ 40 LABS: Hematology Labs: Test 02/12/25 04:28 02/11/25 04:22 Range/Units White Blood Count 7.1 4.8-10.8 K/uL Red Blood Count 2.81 L 4.50-6.20 MIL/uL Hemoglobin 7.9 L 14.0-18.0 g/dL Hematocrit 23.4 L 42-54 % Mean Corpuscular Volume 83.3 79-99 fL Mean Corpuscular Hemoglobin 28.1 27.0-33.0 pg Mean Corpuscular Hemoglobin Concent 33.8 32.0-36.0 g/dL Red Cell Distribution Width 13.2 11.0-15.5 % Platelet Count 138 # 130-400 K/uL Mean Platelet Volume 10.1 7.5-10.5 fL Immature Granulocyte % (Auto) 1.8 H 0-1 % Neutrophils (%) (Auto) 95.2 H 40.0-77.0 % Lymphocytes (%) (Auto) 2.0 L 21.0-51.0 % Monocytes (%) (Auto) 1.0 L 3.0-13.0 % Eosinophils (%) (Auto) 0.0 0.0-8.0 % Basophils (%) (Auto) 0.0 0.0-5.0 % Neutrophils # (Auto) 6.8 1.8-7.7 K/uL Lymphocytes # (Auto) 0.1 L 1.0-4.8 K/uL Monocytes # (Auto) 0.1 0.1-1.0 K/uL Eosinophils # (Auto) 0.00 0.00-0.70 K/uL Basophils # (Auto) 0.00 0.00-0.20 K/uL Absolute Immature Granulocyte (auto 0.13 0-1 K/uL Segmented Neutrophils % 99 H 40-70 % Lymphocytes % (Manual) 1 L 22-44 % Nucleated Red Blood Cells 0.0 0.0-0.19 % Differential Comment MANUAL DIFFERENTIAL White Cell Morphology Comment Platelet Morphology Comment ADEQUATE Red Blood Cell Morphology HYPOCHROM CELLS 1+ Platelet Morphology PLT CLUMPS PRESENT Chemistry Labs: Test 02/12/25 06:13 02/12/25 04:28 02/11/25 04:22 Range/Units Whole Blood Glucose 134 H 70-110 MG/DL Sodium Level 132 L 136-145 mmol/L Potassium Level 5.3 H 3.5-5.1 mmol/L Chloride Level 100 L 101-111 mmol/L Carbon Dioxide Level 20 L 21-32 mmol/L Blood Urea Nitrogen 70 H 7-18 mg/dL Creatinine 2.1 H 0.5-1.3 mg/dL Glomerular Filtration Rate Calc 40 >90 mL/min Random Glucose 112 H 70-105 mg/dL Total Calcium 7.3 L 8.5-10.1 mg/dL Total Bilirubin 0.5 0.2-1.0 mg/dL Aspartate Amino Transf (AST/SGOT) 108 H 10-37 U/L Alanine Aminotransferase (ALT/SGPT) 58 12-78 U/L Alkaline Phosphatase 114 50-136 U/L Total Protein 5.1 L 6.0-8.3 g/dL Albumin 1.3 L 3.5-5.0 g/dL Lactic Acid Level 3.8 H 0.8-2.5 mmol/L Phosphorus Level 5.2 H 2.5-4.9 mg/dL DIAGNOSTICS / RADIOLOGY RESULTS: [ ] NEURO: Minimize central acting medications as possible. Fall Precautions. Well lighted room through the day and minimize interruptions through the night to prevent acute delirium. PULMONARY: Supplemental 02 as needed Titrate Fio2 to keep Spo2 > or = 90% DuoNebs and CPT as needed IS hourly while awake for pulmonary hygiene Out of bed to chair as tolerated VAP Bundle Vent/BIPAP Settings: [ BIPAP setting 12/11 rate of 18 FiO2 60%. ] CARDIOVASCULAR: Follow hemodynamics. Titrate vasopressor to keep MAP >65 or systolic blood pressure >95mmHg DRIPS: [Precedex ] LINES: [PIV] GI & NUTRITION: Continue nutritional support Aspirations precautions Prokinetic agents and laxatives as needed KIDNEYS & ELECTROLYTES: Strict monitoring of intake and output Daily weights Avoid nephrotoxic agents Monitor electrolytes and replace as needed Dias care-prevent CAUTI per nursing Goal urine output of 30mL/hr or 0.5mL/kg/hr Urine output: [ ] Fluid Balance: [ ] ENDOCRINE: Maintain blood glucose between 100-180 at all times. Insulin sliding scale for blood glucose management INFECTIOUS DISEASE: Trend temperature. Lara-culture if febrile. Micro: [ ] Antibiotics: [Vancomycin 01/30- IV Fluconazole: 01/30- IV Sulfa/TMP: 01/30-] HEMATOLOGY & COAGULATION: Monitor H&H. Keep Hgb > 7 Transfuse 1 unit of PRBC for Hgb < 7 Transfuse 1 pack of platelets of platelets < 20, 000 Watch for any signs and symptoms of bleeding SKIN: Pressure ulcer prevention per facility protocol Rehab: PT/OT Prophylaxis: GI: [Pepcid] DVT: [Heparin ] Code Status: Full Resuscitation Disposition: [ICU ] NETO STARR [facility] Feb 12, 2025 11:59
--- NOTE | 2025-02-12 14:40 | NUR ---
PATIENT HAS DTI TO HIS RIGHT HEEL, WAFFLE BOOTS APPLIED TO BOTH FEET.
--- NOTE | 2025-02-12 14:58 | PN ---
NEPHROLOGY PROGRESS NOTE Date/Time Patient Seen: Feb 12, 2025 SUBJECTIVE: This is a 44-year-old male with HIV positive newly diagnosed He was brought by EMS to the ED for complaints of shortness of breaths for the past two weeks. He has been in the hospital for several days He continues on antibiotics, including Bactrim, as per ID. He was noted to have elevated BUN/creatinine We are consulted for renal failure Renal function continues to worsen Electrolytes show hyperkalemia Contiues on Lokelma BID Renal ultrasound showed partially distended bladder with no hydronephrosis or renal calculus He continues on Lasix, urine output was noted Tolerating Nepro tube feedings He was seen in the ICU, Nurse reports fevers Continues to be intubated and sedated Family at the bedside Prognosis remains guarded REVIEW OF SYSTEMS: Difficult to obtain given status of the patient who remains intubated mechanically ventilated Vital Signs (last 8hr) Date Time Temp Pulse Resp B/P (MAP) Pulse Ox O2 Delivery O2 Flow Rate FiO2 02/11/25 12:30 120 28 145/72 (96) 96 02/11/25 12:15 115 32 146/77 (100) 02/11/25 12:07 103.3 02/11/25 12:00 103.3 Ventilator 40 02/11/25 12:00 112 27 138/70 (92) 95 02/11/25 12:00 96 Ventilator+ 40 02/11/25 12:00 40 02/11/25 11:45 113 34 129/85 (100) 02/11/25 11:30 107 33 159/80 (106) 02/11/25 11:15 110 32 164/81 (108) 02/11/25 11:12 117 28 02/11/25 11:00 108 33 152/82 (105) 97 02/11/25 10:45 107 32 154/77 (102) 02/11/25 10:30 105 32 151/77 (101) 02/11/25 10:15 108 32 148/73 (98) 02/11/25 10:00 108 32 143/80 (101) 02/11/25 09:45 107 32 141/75 (97) 02/11/25 09:30 106 31 139/69 (92) 02/11/25 09:30 111 40 02/11/25 09:15 105 34 135/71 (92) 95 02/11/25 09:00 105 33 136/69 (91) 95 02/11/25 08:45 108 33 138/72 (94) 93 02/11/25 08:30 104 32 132/69 (90) 92 02/11/25 08:15 102 31 123/59 (80) 92 02/11/25 08:00 96 Ventilator+ 40 02/11/25 08:00 102.2 Ventilator 40 02/11/25 08:00 102 30 129/59 (82) 93 02/11/25 08:00 40 02/11/25 07:45 103 28 134/56 (82) 94 02/11/25 07:30 106 33 136/58 (84) 93 02/11/25 07:15 105 28 137/59 (85) 94 02/11/25 07:00 107 32 145/76 (99) 98 02/11/25 06:59 102 31 02/11/25 06:58 105 40 02/11/25 06:45 105 32 142/70 (94) 97 PHYSICAL EXAM: General: acutely ill, sedated, intubated, and mechanically ventilated HEENT: head is atraumatic, pupils equal and reactive, ET tube in place Neck: supple, no masses, no lymphadenopathy, no thyromegaly, no JVD Lungs: decreased breath sounds bilaterally, symmetrical chest movement Cardio: regular rate, S1 and S2 normal, no rub or gallop Abdomen: soft, non tender, no distension, no organomegaly Extremities: trace edema bilateral lower extremities, no cyanosis or clubbing Skin: no rashes or suspicious lesions Neuro: sedated Current Medications Medications (Trade) Dose Ordered Sig/Amada Route Start Time Stop Time Status Last Admin Dose Admin Albuterol (DUOneb) 1 udvial [id number] IH 01/30/25 22:00 03/01/25 21:59 02/09/25 10:30 1 UDVIAL Cefepime HCl (MAXipime 2 gm vial) 2 gm Q12H IVPB 02/01/25 14:00 02/11/25 13:59 02/09/25 01:56 2 GM Dexmedetomidine/ Sodium Chloride (PRECEdex 400MCG/ 100ML-NS) 400 mcg PROTOCOL IV 02/04/25 23:45 03/06/25 23:44 02/09/25 05:56 400 MCG Doxycycline Hyclate 250 ml @ 125 mls/hr Q12H IV 01/31/25 14:00 02/10/25 13:59 02/09/25 01:56 125 MLS/HR Famotidine (Pepcid 20mg Vial) 20 mg DAILY IV 01/31/25 09:00 03/02/25 08:59 02/09/25 08:28 20 MG Fentanyl Citrate 100 ml @ 2.5 mls/hr PROTOCOL IV 02/05/25 11:30 02/05/25 19:59 DC 02/05/25 17:13 2.5 MLS/HR Fentanyl/Sodium Chloride 250 ml @ 0.1 mls/hr PROTOCOL IV 02/05/25 20:00 02/08/25 15:52 DC 02/07/25 22:11 0.1 MLS/HR Fluconazole/ Sodium Chloride (DiFLUCan 200 MG/ NS 100 ML) 200 mg DAILY22 IV 02/02/25 22:00 03/01/25 17:59 02/08/25 23:07 200 MG Fluconazole/ Sodium Chloride (DiFLUCan 200 MG/ NS 100 ML) 200 mg Q24H IV 01/30/25 18:00 02/02/25 14:38 DC 02/01/25 18:17 200 MG Furosemide (LASix 20MG VIAL) 20 mg Q8H IV 02/06/25 16:00 03/08/25 15:59 02/09/25 08:02 20 MG Furosemide (LASix 40MG VIAL) 20 mg ONCE STAT IV 01/31/25 05:37 01/31/25 05:40 DC 01/31/25 05:45 20 MG Heparin Sodium (Porcine) (HEParin 5,000 UNIT VIAL) 5,000 unit Q12H SQ 01/31/25 09:00 03/02/25 08:59 02/09/25 08:47 5,000 UNIT Insulin Glargine (LANtus 100 UNITS/ML 10 ML VIAL) 20 units BID SQ 02/04/25 21:00 02/06/25 14:49 DC 02/06/25 10:03 20 UNITS Insulin Glargine (LANtus 100 UNITS/ML 10 ML VIAL) 30 units BID SQ 02/06/25 21:00 03/08/25 20:59 12/4/25 08:36 30 UNITS Insulin Human Regular (humuLIN R 100 UNIT/ML 3ML) INSULIN SLIDING SCAL... ACHS SQ 02/07/25 16:30 02/07/25 11:56 DC Insulin Human Regular (humuLIN R 100 UNIT/ML 3ML) INSULIN SLIDING SCAL... Q6H6 SQ 01/31/25 06:00 02/07/25 11:55 DC 02/07/25 06:03 5 UNIT Insulin Human Regular (humuLIN R 100 UNIT/ML 3ML) INSULIN SLIDING SCAL... Q6H6 SQ 02/07/25 12:00 03/09/25 11:59 02/08/25 18:27 4 UNIT Methylprednisolone Sodium Succinate (Solu-medROL 40MG) 40 mg BID IVP 01/30/25 21:00 01/31/25 04:16 DC 01/30/25 21:18 40 MG Methylprednisolone Sodium Succinate (Solu-medROL 40MG) 40 mg BID IVP 02/07/25 21:00 03/09/25 20:59 02/09/25 08:28 40 MG Methylprednisolone Sodium Succinate (Solu-medROL 40MG) 40 mg Q8H IVP 01/31/25 04:30 02/02/25 11:57 DC 02/02/25 11:47 40 MG Methylprednisolone Sodium Succinate (Solu-medROL 40MG) 60 mg Q6H IVP 02/02/25 12:00 02/07/25 15:17 DC 02/07/25 11:27 60 MG Metoclopramide HCl (regLAN 10MG IV) 10 mg Q8H IVP 02/06/25 16:00 03/08/25 15:59 02/09/25 08:02 10 MG Morphine Sulfate (morPHINE 2MG SYG) 2 mg ONCE STAT IVP 01/31/25 05:41 01/31/25 05:45 DC 01/31/25 05:51 2 MG Multi-Ingred Cream/Lotion/Oil/ Oint (Artificial Tears Eye Oint) Apply ointment to both e... Q4H OU 01/31/25 15:00 03/02/25 14:59 02/09/25 06:37 1 APPL Norepinephrine Bitartrate (Norepineph 16 Mg/250ml NS Premix) sbp>90 PROTOCOL IV 02/05/25 11:30 03/07/25 11:29 Pharmacy Profile Note (Pharmacy Communication) 1 each ONCE MISC 02/05/25 11:30 02/05/25 11:23 DC Piperacillin Sod/ Tazobactam Sod (Zosyn 3.375gm+NS 50ml) 3.375 gm Q8H IVPB 01/31/25 09:30 01/31/25 12:56 DC 01/31/25 11:04 3.375 GM Piperacillin Sod/ Tazobactam Sod (Zosyn 3.375gm+NS 50ml) 3.375 gm ZOSY8 IVPB 01/31/25 13:00 02/01/25 13:33 DC 02/01/25 11:54 3.375 GM Polyethylene Glycol (MIRalax 3350 17 GM POWD.PACK) 17 gm DAILY PO 02/07/25 11:30 03/09/25 11:29 02/09/25 08:28 17 GM Sodium Bicarbonate (Sodium Bicarb 50meq 50ml Vial) 50 meq Q8H6 IV 02/06/25 14:00 02/07/25 16:00 DC 02/07/25 14:47 50 MEQ Sodium Chloride 1,000 ml @ 100 mls/hr Q10H IV 01/30/25 20:00 01/31/25 05:38 DC 01/30/25 21:18 100 MLS/HR Sodium Zirconium Cyclosilicate (Lokelma 10gm Powder) 10 gm BID PO 02/09/25 12:00 02/10/25 11:59 02/09/25 12:26 10 GM Trimethoprim/ Sulfamethoxazole 480 mg/Dextrose 500 ml @ 250 mls/hr Q6H IV 01/30/25 21:00 02/01/25 11:57 DC 02/01/25 02:49 250 MLS/HR Trimethoprim/ Sulfamethoxazole 480 mg/Dextrose 500 ml @ 250 mls/hr Q6H IV 02/01/25 12:00 02/11/25 11:59 02/09/25 12:21 250 MLS/HR Trimethoprim/ Sulfamethoxazole / Dextrose 100 ml @ 100 mls/hr AD IV 01/30/25 20:00 02/09/25 19:59 UNV Wound Care/ Dressing Products (Venelex Ointment) BID TP 02/09/25 21:00 03/11/25 20:59 LABORATORY: [ ] Hematology Labs: Test 02/12/25 04:28 02/11/25 04:22 Range/Units White Blood Count 7.1 4.8-10.8 K/uL Red Blood Count 2.81 L 4.50-6.20 MIL/uL Hemoglobin 7.9 L 14.0-18.0 g/dL Hematocrit 23.4 L 42-54 % Mean Corpuscular Volume 83.3 79-99 fL Mean Corpuscular Hemoglobin 28.1 27.0-33.0 pg Mean Corpuscular Hemoglobin Concent 33.8 32.0-36.0 g/dL Red Cell Distribution Width 13.2 11.0-15.5 % Platelet Count 138 # 130-400 K/uL Mean Platelet Volume 10.1 7.5-10.5 fL Immature Granulocyte % (Auto) 1.8 H 0-1 % Neutrophils (%) (Auto) 95.2 H 40.0-77.0 % Lymphocytes (%) (Auto) 2.0 L 21.0-51.0 % Monocytes (%) (Auto) 1.0 L 3.0-13.0 % Eosinophils (%) (Auto) 0.0 0.0-8.0 % Basophils (%) (Auto) 0.0 0.0-5.0 % Neutrophils # (Auto) 6.8 1.8-7.7 K/uL Lymphocytes # (Auto) 0.1 L 1.0-4.8 K/uL Monocytes # (Auto) 0.1 0.1-1.0 K/uL Eosinophils # (Auto) 0.00 0.00-0.70 K/uL Basophils # (Auto) 0.00 0.00-0.20 K/uL Absolute Immature Granulocyte (auto 0.13 0-1 K/uL Segmented Neutrophils % 99 H 40-70 % Lymphocytes % (Manual) 1 L 22-44 % Nucleated Red Blood Cells 0.0 0.0-0.19 % Differential Comment MANUAL DIFFERENTIAL White Cell Morphology Comment Platelet Morphology Comment ADEQUATE Red Blood Cell Morphology HYPOCHROM CELLS 1+ Platelet Morphology PLT CLUMPS PRESENT Chemistry Labs: Test 02/12/25 11:54 02/12/25 04:28 02/11/25 04:22 Range/Units Whole Blood Glucose 116 H 70-110 MG/DL Sodium Level 132 L 136-145 mmol/L Potassium Level 5.3 H 3.5-5.1 mmol/L Chloride Level 100 L 101-111 mmol/L Carbon Dioxide Level 20 L 21-32 mmol/L Blood Urea Nitrogen 70 H 7-18 mg/dL Creatinine 2.1 H 0.5-1.3 mg/dL Glomerular Filtration Rate Calc 40 >90 mL/min Random Glucose 112 H 70-105 mg/dL Total Calcium 7.3 L 8.5-10.1 mg/dL Total Bilirubin 0.5 0.2-1.0 mg/dL Aspartate Amino Transf (AST/SGOT) 108 H 10-37 U/L Alanine Aminotransferase (ALT/SGPT) 58 12-78 U/L Alkaline Phosphatase 114 50-136 U/L Total Protein 5.1 L 6.0-8.3 g/dL Albumin 1.3 L 3.5-5.0 g/dL Lactic Acid Level 3.8 H 0.8-2.5 mmol/L Phosphorus Level 5.2 H 2.5-4.9 mg/dL DIAGNOSTICS / RADIOLOGY: [address] [address] IMAGING REPORT Signed PATIENT: CHARY HERNANDEZ MR#: [id number] : 1980 SEX: M AGE: 44 LOCATION: [facility] ORDER 2300 STATUS: ADM IN REPORT#: [id number] SERVICE 0600 REASON: pp ORDERING PHYSICIAN: BIANCA WICK PAC PROCEDURE: CXR1VW - CHEST 1VW EXAM: CR CHEST, 1 VIEW CLINICAL HISTORY: Endotracheal tube placement. COMPARISON: None provided TECHNIQUE: Single frontal radiograph of the chest was obtained. Gross patient's rotation during the image acquisition is present. FINDINGS: Lines/Devices: Right sided PICC line with its tip overlying the proximal superior vena cava. Endotracheal tube with its tip 5.3 cm short of catina. Nasogastric catheter with its tip overlying the stomach in the region of the proximal gastric body. Lungs: Interval reduction in the degree of pulmonary parenchymal congestion with clearing of the infiltrates from the right lung. Persistent left lower lobar lung infiltrates, which may represent atelectasis/consolidation. No right sided pleural effusion. Moderate sized left sided pleural effusion causing opacification of the left hemithorax. There is no pneumothorax. Mediastinum and cardiovascular structures: Moderate cardiomegaly. There are calcific atherosclerotic plaques in the aorta. The central airway and mediastinal contours are unremarkable. Bones and soft tissues: Unremarkable. IMPRESSION: In comparison with the previous chest radiograph dated February 10, 2025, the current radiograph demonstrates: 1. Stable endotracheal tube, the right sided PICC line and the nasogastric catheter. 2. Moderate sized left sided pleural effusion causing opacification of the left hemithorax. Persistent left lower lobar lung infiltrates, which may represent atelectasis/consolidation. 3. Interval reduction in the degree of pulmonary parenchymal congestion with resolution of the infiltrates from the right lung. /[place] DICTATED BY: LEXX GRIGGS MD DATE: 02/12/25432 ELECTRONICALLY SIGNED BY: LEXX GRIGGS MD DATE: 02/12/25432 PATIENT: CHARY HERNANDEZ MR#: [id number] : 1980 SEX: M AGE: 44 LOCATION: [facility] ORDER 99 STATUS: ADM IN REPORT#: [id number] SERVICE 0600 REASON: pp ORDERING PHYSICIAN: BIANCA WICK PAC PROCEDURE: CXR1VW - CHEST 1VW EXAM: CR Chest, 1 View. CLINICAL HISTORY: Endotracheal tube. COMPARISON: 02/09/2025 FINDINGS: The endotracheal tube is seen with its tip terminating about 5.6 cm above the catina. The nasogastric tube is seen in the left hemidiaphragm; the tip is not visualized. LUNGS: Mild interval reduction in the aeration of both lungs. PLEURAL SPACES: No definite pleural effusion or pneumothorax. MEDIASTINUM: Cardiac size is stable. BONES: No aggressive appearing osseous lesion seen. IMPRESSION: 1. Endotracheal tube tip 5.6 cm above the catina. 2. Mild interval reduction in the aeration of both lungs. /[place] DICTATED BY: LARISSA LEMONS Jr., MD DATE: 02/10/251510 ELECTRONICALLY SIGNED BY: LARISSA LEMONS Jr., MD DATE: 02/10/251510 PATIENT: CHARY HERNANDEZ MR#: [id number] : 1980 SEX: M AGE: 44 LOCATION: [facility] ORDER 99 STATUS: ADM IN REPORT#: [id number] SERVICE 9 REASON: Respirateory failure ORDERING PHYSICIAN: NETO STARR PROCEDURE: CXR1VW - CHEST 1VW EXAM: CR Chest, 1 View. CLINICAL HISTORY: Respiratory failure COMPARISON: 02/08/2025 FINDINGS: The endotracheal tube is seen with its tip terminating about 5.4 cm above the catina. The nasogastric tube is seen in the left hemidiaphragm; the tip is not visualized. LUNGS: Essentially stable appearance of bilateral lung curtis, with persistent right basilar and diffuse left lung airspace disease. PLEURAL SPACES: No evidence of pleural effusion or pneumothorax. MEDIASTINUM: The cardiac size is stable. BONES: No aggressive appearing osseous lesion seen. IMPRESSION: 1. Endotracheal tube tip 5.4 cm above catina. 2. Nasogastric tube is demonstrated below the left hemidiaphragm; the tip is not visualized. 3. Essentially stable appearance of bilateral lung curtis, with persistent right basilar and diffuse left lung airspace disease. /[place] DICTATED BY: LARISSA LEMONS Jr., MD DATE: 02/09/251057 ELECTRONICALLY SIGNED BY: LARISSA LEMONS Jr., MD DATE: 02/09/251057 PATIENT: CHARY HERNANDEZ MR#: [id number] : 1980 SEX: M AGE: 44 LOCATION: [facility] ORDER 99 STATUS: ADM IN REPORT#: [id number] SERVICE 06 REASON: pp ORDERING PHYSICIAN: BIANCA WICK PAC PROCEDURE: CXR1VW - CHEST 1VW EXAM: CR Chest, 1 View. CLINICAL HISTORY: Follow up COMPARISON: 02/07/2025 FINDINGS: The endotracheal tube tip is 6.8 cm away from the catina. The nasogastric tube is seen below the left hemidiaphragm; the tip is not visualized. LUNGS: Essentially stable appearance of the bilateral lung curtis with mild bibasilar atelectasis and questionable small bilateral pleural effusions. PLEURAL SPACES: No evidence of pneumothorax. MEDIASTINUM: Cardiac size is stable. Mild stable pulmonary vascular congestion. BONES: No acute osseous abnormality. IMPRESSION: 1. Stable appearance of bilateral lung curtis with mild bibasilar atelectasis and questionable small bilateral pleural effusions. 2. Endotracheal tube tip 6.8 cm from catina. 3. Nasogastric tube below left hemidiaphragm, tip not visualized. /[place] DICTATED BY: LARISSA LEMONS Jr., MD DATE: 02/09/251109 ELECTRONICALLY SIGNED BY: LARISSA LEMONS Jr., MD DATE: 02/09/251109 PATIENT: CHARY HERNANDEZ MR#: [id number] : 1980 SEX: M AGE: 44 LOCATION: [facility] ORDER 2300 STATUS: ADM IN REPORT#: [id number] SERVICE 06 REASON: pp ORDERING PHYSICIAN: BIANCA WICK PAC PROCEDURE: CXR1VW - CHEST 1VW EXAM: CR Chest, 2 View. CLINICAL HISTORY: Intubated. COMPARISON: 02/06/2025 FINDINGS: The endotracheal tube is seen with its tip terminating about 6.7 cm above the catina. The nasogastric tube terminates in the proximal stomach. LUNGS: Interval improvement in basilar predominant bilateral diffuse airspace disease is present. PLEURAL SPACES: No definite pleural effusion or pneumothorax. MEDIASTINUM: Cardiac size is stable. BONES: No aggressive appearing osseous lesion seen. IMPRESSION: 1. Interval improvement in bilateral basilar predominant airspace disease. 2. Endotracheal tube tip positioned 6.7 cm above catina. 3. The nasogastric tube terminates in the proximal stomach. /[place] DICTATED BY: LARISSA LEMONS Jr., MD DATE: 02/07/251748 ELECTRONICALLY SIGNED BY: LARISSA LEMONS Jr., MD DATE: 02/07/251748 PATIENT: CHARY HERNANDEZ MR#: [id number] : 1980 SEX: M AGE: 44 LOCATION: [facility] ORDER 1341 STATUS: ADM IN REPORT#: [id number] SERVICE 1337 REASON: JUAN ORDERING PHYSICIAN: DARBY PORRAS MD PROCEDURE: RENAL - US RENAL SONOGRAM EXAMINATION: ULTRASOUND OF THE RETROPERITONEUM. CLINICAL HISTORY: JUAN. COMPARISON: None. TECHNIQUE: Real-time grayscale ultrasound images of the kidneys. FINDINGS: The kidneys are normal in caliber, the right kidney measures 12.9 x 6.5 x 6.5 cm and the left kidney measures 11.0 x 5.6 x 5.5 cm in its craniocaudal, AP, and transverse dimensions respectively. There is normal renal cortical thickness, and cortical echogenicity. There is no renal calculus or hydronephrosis. The urinary bladder is partially distended with mild wall thickening (0.6 cm). There are no calculi in the urinary bladder. IMPRESSION: Urinary bladder wall thickening of concern for cystitis. /[place] DICTATED BY: LARISSA LEMONS Jr., MD DATE: 02/07/25716 ELECTRONICALLY SIGNED BY: LARISSA LEMONS Jr., MD DATE: 02/07/25716 PATIENT: CHARY HERNANDEZ MR#: [id number] : 1980 SEX: M AGE: 44 LOCATION: [facility] ORDER 1118 STATUS: ADM IN REPORT#: [id number] SERVICE 1145 REASON: post intubation ORDERING PHYSICIAN: COMPA PATRICK MD PROCEDURE: CXR1VW - CHEST 1VW EXAM: CR Chest, 2 View. CLINICAL HISTORY: post intubation COMPARISON: Radiograph from February 04, 2025 FINDINGS: Endotracheal tubes in satisfactory position, tip terminating 3.5 cm above the catina. Right PICC terminates overlying the SVC. Bibasilar airspace disease may reflect an infectious process. No pleural effusion or pneumothorax. Heart size is stable. Pulmonary vessels are within normal limits. IMPRESSION: 1. Endotracheal tube and right PICC line in satisfactory positions. 2. Bibasilar airspace disease, possibly infectious. /[place] DICTATED BY: LARISSA LEMONS Jr., MD DATE: 02/05/251408 ELECTRONICALLY SIGNED BY: LARISSA LEMONS Jr., MD DATE: 02/05/251408 PATIENT: CHARY HERNANDEZ MR#: [id number] : 1980 SEX: M AGE: 44 LOCATION: [facility] ORDER 9 STATUS: ADM IN REPORT#: [id number] SERVICE 8 REASON: ngt placement for TF ORDERING PHYSICIAN: ISAC MATHEW MD PROCEDURE: ABD 1VW - ABD 1VW EXAM: CR Abdomen, 1 View. CLINICAL HISTORY: ngt placement for TF COMPARISON: None provided. FINDINGS: BOWEL: The transverse colon is filled with gas and fecal content could be due to constipation Nasogastric tubes projecting below lthe eft hemidiaphragm in the stomach PERITONEUM/SOFT TISSUES: No free air evident. No pathologic appearing calcification. BONES: No acute osseous abnormality. IMPRESSION: The nasogastric tube is projected below the left hemidiaphragm over the stomach, tip is located in the body portion of the stomach Gas and fecal-loaded transverse colon consistent with constipation /[place] DICTATED BY: LARISSA LEMONS Jr., MD DATE: 02/03/251138 ELECTRONICALLY SIGNED BY: LARISSA LEMONS Jr., MD DATE: 02/03/251138 PATIENT: CHARY HERNANDEZ MR#: [id number] : 1980 SEX: M AGE: 44 LOCATION: [facility] ORDER 1 STATUS: ADM IN REPORT#: [id number] SERVICE 5 REASON: hypoxia ORDERING PHYSICIAN: BIANCA GARCIA PROCEDURE: ECHO CMP - ECHO 2-D COMPLETE APPROVED REPORT EXAM: Two-dimensional and M-mode echocardiogram with Doppler and color Doppler. INDICATION ICD: R06.02 Shortness of breath 2D Dimensions RVDd 4.5 cm LVEF(%) 58.7 (>50%) LVED Vol(simp.) 152.0 mL IVSd 1.2 (0.7-1.1cm) FS(%) 32 % LVES Vol(simp.) 70.0 mL LVDd 6.1 (3.8-5.6cm) LA (2D) 4.0 (1.6-4.0cm) LVEF(%, simp.) 54 % PWd 0.8 (0.7-1.1cm) Ao Root(2D) 3.4 (2.0-3.7cm) LA ESV INDEX (BP) 26.38 mL/m2 IVSs 1.5 cm LVOT diam 2.7 (1.8-2.4cm) LVDs 4.1 (2.5-4.0cm) IVC diam 2.7 cm PWs 1.1 cm Deformation Strain Apical 4 -16.1 % Apical 2 -16.4 % Apical 3 -17.4 % Global Strain -16.6 % M-Mode Dimensions EPSS 0.3 cm LA (MM) 4.2 (1.6-4.0cm) Ao Root(MM) 4.0 (2.0-3.7cm) Aortic Valve AoV Vmax 1.4 m/s Ao Peak GR 7.3 mmHg LVOT Vmax 1.2 m/s AoV VTI 0.3 m Ao Mean GR 4.7 mmHg LVOT VTI 0.23 m MINH (VMAX) 5.28 cm2 MINH (VTI) 5.3 cm2 Mitral Valve MV E Vmax 88.4 cm/s DECEL Time 146 ms MV A Vmax 76.4 cm/s P 1/2 T 41 ms E/A ratio 1.2 MVA (PHT) 5.4 cm2 TDI E/E' Medial 10.2 E/E' Lateral 10.5 Medial E' Peak V 8.64 cm/s Lateral E' Peak V 8.43 cm/s Pulmonary Valve PV Vmax 0.8 m/s PV Peak GR 2.3 mmHg Tricuspid Valve TR Vmax 1.1 m/s RAP (EST) 8 mmHg RVSP 12.9 mmHg TR Peak GR 4.9 mmHg Left Ventricle The left ventricle is normal size. GLS -16.0% There is normal LV segmental wall motion. There is mild left ventricular wall thickness. LVEF is 55%. The LV diastolic function was unable to be assessed due to atrial arrhythmia. Right Ventricle The right ventricle is normal size. The right ventricular systolic function is normal. Atria The left atrium size is normal. The right atrium size is normal. Aortic Valve The aortic valve is normal in structure. No aortic regurgitation is present. There is no aortic valvular stenosis. Mitral Valve The mitral valve is normal in structure. There is trace of mitral valve regurgitation noted. There is no mitral valve stenosis. Tricuspid Valve The tricuspid valve is normal in structure. There is no tricuspid valve regurgitation noted. Pulmonic Valve The pulmonary valve is normal in structure. There is mild pulmonic valvular regurgitation. Great Vessels The aortic root is normal in size. IVC is dilated and collapses >50% with inspiration. Pericardium There is no pericardial effusion. Other Information Quality : Technically diffcult study due to body habitus Conclusion LVEF is 55%. DICTATED BY: CAROL GALLAGHER MD DATE: 01/31/25844 ELECTRONICALLY SIGNED BY: CAROL GALLAGHER MD DATE: 01/31/252052 PATIENT: CHARY HERNANDEZ MR#: [id number] : 1980 SEX: M AGE: 44 LOCATION: [facility] ORDER STATUS: ADM IN [facility] REPORT#: [id number] SERVICE REASON: r/o DVT ORDERING PHYSICIAN: BIANCA GARCIA PROCEDURE: VENOUS GRACIE - US VENOUS DOPPLER BILATERAL EXAM: US for Deep Venous Thrombosis, bilateral Lower Extremity. CLINICAL HISTORY: Rule out deep venous thrombosis. TECHNIQUE: Real-time ultrasound scan of the veins of the bilateral lower extremity with color Doppler flow, spectral waveform analysis and compression. COMPARISON: None provided. FINDINGS: DEEP VEINS: The common femoral, superficial femoral, and popliteal veins are echolucent and compressible. There is normal color Doppler flow throughout. The visualized calf veins appear patent. SOFT TISSUES: No popliteal fossa cyst or other abnormalities. IMPRESSION: No deep venous thrombosis is evident on bilateral lower extremity examination. /[place] DICTATED BY: LARISSA LEMONS Jr., MD DATE: 01/31/25400 ELECTRONICALLY SIGNED BY: LARISSA LEMONS Jr., MD DATE: 01/31/25400 PATIENT: CHARY HERNANDEZ MR#: [id number] : 1980 SEX: M AGE: 44 LOCATION: [facility] ORDER STATUS: ADM IN REPORT#: [id number] SERVICE REASON: r/o P.E. ORDERING PHYSICIAN: BIANCA GARCIA PROCEDURE: CHES PE - CT CHEST PE PROTOCOL WWO CONT EXAMINATION: CT Chest, with intravenous contrast CLINICAL HISTORY: Patient presents to rule out pulmonary embolism. TECHNIQUE: Axial computed tomography images of the chest, with intravenous contrast. Multiplanar reformations were generated and reviewed. CONTRAST: With intravenous contrast. COMPARISON: None provided. FINDINGS: CHEST: LUNGS: The lungs demonstrate extensive diffuse consolidation and airspace opacities and ground-glassing throughout the bilateral lungs, predominantly involving the lower lobes and perihilar regions. No pulmonary mass. PLEURAL SPACES: No pneumothorax or pleural effusion. CARDIOVASCULAR: Cardiomegaly is present. No significant pericardial effusion. The main pulmonary artery measures 3.2 cm. The right pulmonary artery measures 2 cm. The left pulmonary artery measures 2.2 cm. The pulmonary arteries show no evidence of filling defects. Normal caliber thoracic aorta. MEDIASTINUM AND SILVINO: No mediastinal or hilar lymphadenopathy. ABDOMEN : Hepatosplenomegaly BONES: No acute or aggressive osseous abnormality. IMPRESSION: No acute pulmonary embolism. Extensive diffuse bilateral pulmonary airspace opacities, predominantly in the lower lobes and perihilar regions, consistent with pulmonary edema. Cardiomegaly with mild pulmonary arterial hypertension. Hepatosplenomegaly. /[place] DICTATED BY: LARISSA LEMONS Jr., MD DATE: 01/31/25803 ELECTRONICALLY SIGNED BY: LARISSA LEMONS Jr., MD DATE: 01/31/25803 ASSESSMENT: Hyperkalemia Acute renal failure Acute hypoxemic and hypercarbic respiratory failure now with worsening respiratory distress ARDS Community-acquired pneumonia suspected Pneumocystis Toxic metabolic encephalopathy on admission Acute sepsis on admission without septic shock secondary to community-acquired pneumonia HIV positive newly diagnosed stage IV. Not on anti-retroviral medication CD4 count: 19 Immunocompromise status Suspected TB Obstructive sleep apnea, untreated/undiagnosed Morbid obesity, BMI 33.6 Volume overload PLAN: Labs, diagnostic, radiologic exams reviewed and interpreted by myself and supervising physician. We have reviewed external records in detail There is no need for emergent renal replacement therapy at this time. Continue with Isentrress and Lokelma Renally dose Bactrim Continue with close monitoring of electrolytes and renal function Order CBC, CMP, and electrolytes in am Continue with antibiotics as per ID Continue mechanical ventilation and sedation IV pressors as needed Monitor blood pressure adjust medication doses as needed May use Dilaudid 0.5 mg IV every 6 hours as needed for severe pain Monitor blood sugars Strict intake, output, and daily weight should be monitored Please renally adjust medications Avoid nephrotoxic and nonsteroidal drugs Avoid contrast if possible Will continue to monitor renal function, anemia, electrolytes Treatment plan discussed with patient Questions were answered We have discussed with the other team physicians in detail about the care plan We will continue to monitor the patient closely Total critical care time spent with patient, nursing staff, critical care team over 35 minutes ATTESTATION BY PHYSICIAN I have seen and examined the patient. I reviewed the documentation, medical decision making, and treatment plan as noted by the mid-level provider above. I agree with the findings and plan of care. DARBY PORRAS MD, [facility] Feb 12, 2025 14:58
--- NOTE | 2025-02-12 14:59 | EKG ---
[facility] Test Date: 2025-02-11 Test Time: 13:42:07 Pat Name: CHARY HERNANDEZ Department: [facility] Room: 217 1 Gender: M Core Blower: [id number] : 1980 Requested By: DAVEY MANRIQUE Order Number: [id number] Reading MD: Adolfo Roland Measurements Intervals Mooers Rate: 112 P: 76 NC: 146 QRS: 75 QRSD: 103 T: 51 QT: 320 QTc: 437 Interpretive Statements Sinus tachycardia Low voltage, extremity leads Compared to ECG 01/30/2025 15:49:39 Electronically Signed On 02-13-2025 13:07:32 [employer] by Adolfo Roland Please click the below link to view image of tracing.
--- NOTE | 2025-02-12 15:45 | NUR ---
PATIENT NOTED TO BE GETTING TIRED, HR IN THE 140/MIN, RR OF 35/MIN, AND SBP IN THE 160'S, PATIENT WAS PLACED BACK ON THE AC MODE AND PRECEDEX WAS STARTED.WILL CONTINUE TO MONITOR. PATIENT LASTED AT LEAST 4 HOURS OF CPAP.
--- NOTE | 2025-02-12 21:20 | PN ---
INFECTIOUS DISEASE PROGRESS NOTE Date of Service: Feb 12, 2025 SUBJECTIVE: This is a 44-year-old male patient who was seen at bedside in room 217. Patient remains intubated. The final sputum culture results came back positive for yeast species and the preliminary blood culture results is growing Gram- positive cocci in cluster 1 of 2 sets. No fever however reported within the last 24 hours. We will continue on cefepime, Bactrim, doxycycline and fluconazole and follow up on the final culture results. Tolerating the Truvada and Raltegravir well. Patient's sister and brother present at bedside and were updated with these new findings. We will continue to follow patient's care. PHYSICAL EXAM EYES: Anicteric. Pupils equal and reactive. HENT: Oral thrush. NGT. NECK: Supple, no JVD or thyromegaly. LUNGS: On mechanical ventilatory support. CARDIOVASCULAR: S1, S2 regular. No murmur heard. ABDOMEN: Soft, non tender, bowel sounds present, no organomegaly. CENTRAL NERVOUS SYSTEM: Intubated. SKIN: Rash on abdomen and lower extremities. LYMPHATICS: No peripheral lymphadenopathy MUSCULOSKELETAL: No joint swelling, erythema or tenderness. EXTREMITIES: No cyanosis or clubbing. Weakness. BACK: No deformity, no pressure ulcer. GENITOURINARY: No dysuria or hematuria. Dias catheter. Vital Sign (Last 12 Hours) 02/12/25 02/12/25 02/12/25 02/12/25 10:07 11:07 11:30 11:45 Pulse 70 80 82 Resp 21 30 B/P (MAP) 112/58 (76) 133/72 (92) Pulse Ox 98 98 96 O2 Delivery Ventilator+ FiO2 40 40 02/12/25 02/12/25 02/12/25 02/12/25 12:07 12:11 12:30 13:07 Temp 98.2 Pulse 94 109 Resp 31 31 B/P (MAP) 137/77 (97) 136/76 (96) Pulse Ox 96 96 FiO2 40 02/12/25 02/12/25 02/12/25 02/12/25 14:07 15:01 15:04 15:07 Pulse 111 111 137 Resp 34 60 B/P (MAP) 137/80 (99) Pulse Ox 99 96 93 O2 Delivery Ventilator+ FiO2 40 40 02/12/25 02/12/25 02/12/25 02/12/25 15:08 15:22 15:23 15:45 Pulse 137 140 139 140 Resp 56 84 61 36 B/P (MAP) 160/79 (106) 160/96 (117) 160/96 (117) Pulse Ox 92 92 91 92 02/12/25 02/12/25 02/12/25 02/12/25 15:45 16:00 16:09 16:15 Temp 98.6 Pulse 133 130 Resp 32 31 B/P (MAP) 141/95 (110) 148/91 (110) Pulse Ox 93 94 FiO2 40 02/12/25 02/12/25 02/12/25 02/12/25 16:30 16:30 16:45 17:12 Pulse 131 129 Resp 31 33 B/P (MAP) 147/87 (107) 148/91 (110) Pulse Ox 94 94 FiO2 50 50 02/12/25 02/12/25 02/12/25 02/12/25 17:15 17:45 18:07 18:25 Pulse 126 112 100 102 Resp 32 25 29 B/P (MAP) 142/86 (104) 90/34 (52) 115/63 (80) Pulse Ox 94 98 94 FiO2 50 02/12/25 02/12/25 02/12/25 02/12/25 18:30 18:45 19:09 19:22 Pulse 86 83 79 Resp 27 30 19 B/P (MAP) 101/51 (68) 95/44 (61) 90/53 (65) Pulse Ox 94 92 92 02/12/25 02/12/25 02/12/25 02/12/25 19:37 19:52 20:00 20:00 Temp 99.3 Pulse 78 77 Resp 22 18 B/P (MAP) 95/52 (66) 91/44 (60) Pulse Ox 91 94 96 O2 Delivery Ventilator+ FiO2 60 02/12/25 02/12/25 20:07 20:25 Pulse 77 Resp 20 B/P (MAP) 95/50 (65) Pulse Ox 98 FiO2 60 Intake & Output (last 24hrs) 02/11/25 02/11/25 02/12/25 15:00 23:00 07:00 Intake Total 1273.4 ml 1729.7 ml 1614.8 ml Output Total 1500 ml 1700 ml Balance 1273.4 ml 229.7 ml -85.2 ml LABS: Laboratory: Test 02/12/25 17:01 02/12/25 04:47 02/12/25 04:28 02/11/25 04:22 Range/Units Whole Blood Glucose 150 H 70-110 MG/DL Blood Gas Specimen Type Arterial Arterial Blood pH 7.485 H 7.350-7.450 Arterial Blood Partial Pressure CO2 26 L 35-48 mmHg Arterial Blood Partial Pressure O2 88.9 83.0-108.0 mmHg Arterial Blood HCO3 18.9 L 21.0-28.0 mmol/L Arterial Blood Oxygen Saturation 96.2 94.0-98.0 % Arterial Blood Base Excess -3.7 L -2.0-3.0 mmol/L Hemoglobin (Blood Gas) 9.0 L 13.5-17.5 g/dL Sodium (Blood Gas) 129 L 136-145 MMOL/L Bedside Potassium (Blood Gas) 5.3 H 3.4-4.5 MMOL/L Bedside Chloride (Blood Gas) 102 98-107 MMOL/L Bedside Glucose (Blood Gas) 118 H 65-95 MG/DL Bedside Ionized Calcium (Blood Gas) 1.07 L 1.15-1.33 MMOL/L Bedside Lactic Acid (Blood Gas) 3.73 *H 0.36-0.75 MMOL/L Blood Gas Temperature 37.0 35.5-37.0 CELSIUS Blood Gas Respiration Rate 20.0 min. Blood Gas Vent Mode ACVC ROOM AIR FiO2 40.0 % Blood Gas Tidal Volume 500 ml Blood Gas PEEP 8 cm H2O Blood Gas Specimen Comment LR RN ANNA MARIE White Blood Count 7.1 4.8-10.8 K/uL Red Blood Count 2.81 L 4.50-6.20 MIL/uL Hemoglobin 7.9 L 14.0-18.0 g/dL Hematocrit 23.4 L 42-54 % Mean Corpuscular Volume 83.3 79-99 fL Mean Corpuscular Hemoglobin 28.1 27.0-33.0 pg Mean Corpuscular Hemoglobin Concent 33.8 32.0-36.0 g/dL Red Cell Distribution Width 13.2 11.0-15.5 % Platelet Count 138 # 130-400 K/uL Mean Platelet Volume 10.1 7.5-10.5 fL Immature Granulocyte % (Auto) 1.8 H 0-1 % Neutrophils (%) (Auto) 95.2 H 40.0-77.0 % Lymphocytes (%) (Auto) 2.0 L 21.0-51.0 % Monocytes (%) (Auto) 1.0 L 3.0-13.0 % Eosinophils (%) (Auto) 0.0 0.0-8.0 % Basophils (%) (Auto) 0.0 0.0-5.0 % Neutrophils # (Auto) 6.8 1.8-7.7 K/uL Lymphocytes # (Auto) 0.1 L 1.0-4.8 K/uL Monocytes # (Auto) 0.1 0.1-1.0 K/uL Eosinophils # (Auto) 0.00 0.00-0.70 K/uL Basophils # (Auto) 0.00 0.00-0.20 K/uL Absolute Immature Granulocyte (auto 0.13 0-1 K/uL Segmented Neutrophils % 99 H 40-70 % Lymphocytes % (Manual) 1 L 22-44 % Nucleated Red Blood Cells 0.0 0.0-0.19 % Differential Comment MANUAL DIFFERENTIAL White Cell Morphology Comment Platelet Morphology Comment ADEQUATE Red Blood Cell Morphology HYPOCHROM CELLS 1+ Sodium Level 132 L 136-145 mmol/L Potassium Level 5.3 H 3.5-5.1 mmol/L Chloride Level 100 L 101-111 mmol/L Carbon Dioxide Level 20 L 21-32 mmol/L Blood Urea Nitrogen 70 H 7-18 mg/dL Creatinine 2.1 H 0.5-1.3 mg/dL Glomerular Filtration Rate Calc 40 >90 mL/min Random Glucose 112 H 70-105 mg/dL Total Calcium 7.3 L 8.5-10.1 mg/dL Total Bilirubin 0.5 0.2-1.0 mg/dL Aspartate Amino Transf (AST/SGOT) 108 H 10-37 U/L Alanine Aminotransferase (ALT/SGPT) 58 12-78 U/L Alkaline Phosphatase 114 50-136 U/L Total Protein 5.1 L 6.0-8.3 g/dL Albumin 1.3 L 3.5-5.0 g/dL Platelet Morphology PLT CLUMPS PRESENT Lactic Acid Level 3.8 H 0.8-2.5 mmol/L Phosphorus Level 5.2 H 2.5-4.9 mg/dL DIAGNOSIS/RADIOLOGY: PATIENT: HERNANDEZCHARY Seo ACCT: [id number] LOC: [facility] U: [id number] AGE/SX: 44/M ROOM: 217 RE01/30/[address]: LAURA DAVIS MD : 1980 BED: 1 DIS: STATUS: ADM IN TLOC: SPEC: [id number] TYLER: 02/10/25 STATUS: RES REQ: [id number] RECD: 02/10/[address]: BIANCA WICK [facility] SOURCE: BLOOD ENTR: 02/10/[address] [facility] [address]: MIRZA COR[facility]ELIUS [facility] LAURA DAVIS MD, BRAJESH N MD LUNA, GREGORY PA SY,PRAVEENA Bailey MD ORDERED: BLOOD CULTURE COMMENTS: What is the Source? BLOOD Procedure Result Jenaro Date-Time BLOOD CULT Preliminary 02/11/25-1304 GRAM STAIN: GRAM POSITIVE COCCI IN CLUSTERS 1 OF 2 SET. AEROBIC BOTTLES CALLED TO NURSE GRECO 02/11/25 AT 1302 BY [facility]. CULTURE REPORT: IDENTIFICATION AND SUSCEPTIBILITIES TO FOLLOW Sent to Reference Lab. SEE [id number] FOR CULTURE RESULTS. PATIENT: CHARY HERNANDEZ ACCT: [id number] LOC: [facility] U: [id number] AGE/SX: 44/M ROOM: 217 RE01/30/[address]: LAURA DAVIS MD : 1980 BED: 1 DIS: STATUS: ADM IN TLOC: SPEC: [id number] TYLER: 02/10/25 STATUS: COMP REQ: [id number] RECD: 02/10/25-[address] [facility] [address]: BIANCA WICK PAC SOURCE: SPUTUM ENTR: 02/10/[address]: MIRZA CORNELIUS MD SPDESC: INDUCED LAURA DAVIS MD, BRAJESH N MD LUNA,SHUBHAM LEE,PRAVEENA Bailey MD ORDERED: RESP CULTURE Procedure Result Jenaro Date-Time GRAM STAIN Final 02/10/25-2100 [facility] GRAM STAIN RESULT: FAIR SPECIMEN [ <10 SEC's/LPF AND 10-25 PMN's/LPF ] FEW GRAM POSITIVE COCCI IN CHAINS AND CLUSTERS FEW BUDDING YEAST RESPIRATORY CULTURE Final 02/12/25-1033 [facility] DESCRIPTION: REPORT 1: 2+ ORAL LINK ; STUDIES TO CONTINUE REPORT 2: 1+ YEAST SPECIES; NOT RAHEL ALBICANS NO FURTHER WORK-UP DONE YEAST SPECIES Test(s) performed by: [facility] [address] [place] [address] ASSESSMENT: Gram-positive bacteremia. Acute hypoxic and hypercapnic respiratory failure, s/p intubation. Multifocal pneumonia. Suspected advanced stage HIV, not on anti-retroviral therapy, POA. Suspected Pneumocystis pneumonia, ruled out. Sepsis. Acute renal failure. Oral candidiasis. Morbid obesity. PLAN: Continue on Truvada and Raltegravir. Continue Bactrim IV. Continue fluconazole IV. Continue doxycycline IV. Continue cefepime. Obtain urine culture. Continue GI prophylaxis. Continues on mechanical ventilatory support. Continue critical care support. We will follow up on the final blood culture results. This case was reviewed and discussed with my supervising physician Dr. Cornelius and the above assessment and plan was formulated and agreed upon. ATTESTATION BY PHYSICIAN I have seen and examined the patient. I reviewed the documentation, medical decision making, and treatment plan as noted by the mid-level provider above. I agree with the findings and plan of care. MIRZA CORNELIUS MD, [facility] Feb 12, 2025 21:20
--- NOTE | 2025-02-12 23:18 | NUR ---
RN NOTIFED VALENTINA YIN OF PATIENT CURRENT CONDITION. PATIENT TACHYPNEIC, SHALLOW RESPIRATIONS. PATIENT WAKING UP BUCKING VENT HR OF 93 AND CURRENT BP OF 152/87. PER ANNAMARIA, ABG AT 7AM AND START PROPOFOL.
--- NOTE | 2025-02-12 23:52 | HMCIMG ---
EXAM: CR CHEST, 1 VIEW CLINICAL HISTORY: pneumonia, Endotracheal tube placement. COMPARISON: CR: CHEST 1VW dated 02/11/2025 3:36 MUD MILL TENDER TECHNIQUE: Single frontal radiograph of the chest was obtained. Mild patient's rotation during the image acquisition is present. FINDINGS: Lines/Devices: Right sided PICC line with its tip overlying the proximal superior vena cava. Endotracheal tube with its tip 5 cm short of catina. Nasogastric catheter with its tip overlying the stomach in the region of the proximal gastric body. Lungs: Almost stationary degree of pulmonary parenchymal congestion on left side, being mild. Persistent left lower lobar lung infiltrates, which may represent atelectasis/consolidation. No right sided pleural effusion. Mild left sided pleural effusion causing opacification of the left hemithorax. There is no pneumothorax. Mediastinum and cardiovascular structures: Moderate cardiomegaly. There are calcific atherosclerotic plaques in the aorta. The central airway and mediastinal contours are unremarkable. Bones and soft tissues: Unremarkable. IMPRESSION: In comparison with the previous chest radiograph dated February 11, 2025, the current radiograph demonstrates: 1. Mild left sided pleural effusion causing opacification of the left hemithorax. Persistent left lower lobar lung infiltrates, which may represent atelectasis/consolidation. 2. Stable endotracheal tube, the right sided PICC line and the nasogastric catheter. 3. Stationary degree of pulmonary parenchymal congestion. /[place]
[2025-02-13] VITALS (105 sets, daily range): BP systolic 94–175; BP diastolic 44–96; PULSE 78–105; RESP 23–61; TEMP 98.8–100.6; O2SAT 94–100
[2025-02-13 04:17] LABS: ABG BASE EXCESS -8.0 mmol/L (-2.0-3.0); ABG HCO3 16.6 mmol/L (21.0-28.0); ABG OXYGEN SATURATION 89.7 % (94.0-98.0); ABG PCO2 31 mmHg (35-48); ABG PH 7.353 (7.350-7.450); CARBON MONOXIDE 0.3 % (0.5-1.5); PO2, ARTERIAL BG 66.7 mmHg (83.0-108.0); TEMPERATURE, CELSIUS BG 37.0 CELSIUS (35.5-37.0); VENT MODE, BG ACVC RR (ROOM AIR)
--- NOTE | 2025-02-13 04:20 | NUR ---
RN CALLED [facility] TO REACH MANAGER OCCUPATIONAL UNARMED SECURITY OFFICER FOR ABG RESULTS. RN PENDING CALL BACK
--- NOTE | 2025-02-13 05:11 | NUR ---
[facility]DER PRESS OPERATOR, NO CALL BACK SINCE PREVIOUS CALL AT [phone].
[2025-02-13 05:14] LABS: NUCLEATED RED BLOOD CELLS 0.3 % (0.0-0.19); PLATELET COUNT (AUTO) 116 K/uL (130-400); RED BLOOD CELL COUNT(AUTO) 2.73 MIL/uL (4.50-6.20); RED CELL DISTRIBUTION WIDTH 13.3 % (11.0-15.5); WHITE BLOOD COUNT (AUTO) 6.7 K/uL (4.8-10.8)
[2025-02-13 05:28] LABS: CREATININE 2.0 mg/dL (0.5-1.3); GLOMERULAR FILTR. RATE CALC 42.0 mL/min (>90); GLUCOSE,RANDOM 150.0 mg/dL (70-105); SODIUM SERUM 129.0 mmol/L (136-145); TOTAL PROTEIN, SERUM 5.2 g/dL (6.0-8.3); UREA NITROGEN, BLOOD 70.0 mg/dL (7-18)
[2025-02-13 05:31] LABS: ASPARTATE AMINOTRANSFERASE 85.0 U/L (10-37)
[2025-02-13 05:43] LABS: PHOSPHORUS 4.7 mg/dL (2.5-4.9)
--- NOTE | 2025-02-13 05:56 | NUR ---
RN SPOKE TO JESI MARTEL NP FOR BENCHMARK IN REGARD TO ABG RESULTS. PER DENTAL FRONT OFFICE ASSISTANT, GO UP ON FIO2 TO 100%. RN ALSO DISCUSSED SODIUM LEVELS AND LACTIC ACID RESULTS. NO NEW ORDERS.
[2025-02-13 07:20] LABS: ABG BASE EXCESS -7.6 mmol/L (-2.0-3.0); ABG HCO3 13.8 mmol/L (21.0-28.0); ABG OXYGEN SATURATION 99.0 % (94.0-98.0); ABG PCO2 < 15 mmHg (35-48); ABG PH 7.598 (7.350-7.450); CARBON MONOXIDE 1.4 % (0.5-1.5); DEVICE COMMENT RRRENE; PO2, ARTERIAL BG 173.1 mmHg (83.0-108.0); TEMPERATURE, CELSIUS BG 37.0 CELSIUS (35.5-37.0); VENT MODE, BG AC (ROOM AIR)
[2025-02-13 07:29] LABS: BAND NEUTROPHILS % (MANUAL) 11 % (0-2); LYMPHOCYTES % (MANUAL) 1 % (22-44); MAN.DIFF COMMENT-IMPRESSION MANUAL DIFFERENTIAL; PLATELET MORPHOLOGY COMMENT SLIGHTLY DECREASED; SEGMENTED NEUTROPHILS % 88 % (40-70); WBC MORPHOLOGY SMUDGE CELLS 2+
[2025-02-13] MEDS: NA ZIRCON CYCLOSIL(LOKELMA 10GM) PO ONE (08:46)
--- NOTE | 2025-02-13 15:29 | PN ---
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 improvement in the bilateral lung aeration, with an interval decrease in the left lower zone infiltrates. PLEURAL SPACES: No evidence of pleural effusion or pneumothorax. MEDIASTINUM: Cardiac size is stable. BONES: No acute osseous abnormality. IMPRESSION: 1. Interval improvement in bilateral lung aeration, with decreased left lower zone infiltrates. 2. Right PICC line tip overlying the SVC, endotracheal tube tip 3.9 cm proximal to the catina, and nasogastric catheter tip in the proximal gastric body. /[place] DICTATED BY: LARISSA LEMONS Jr., MD DATE: 02/13/251717 ELECTRONICALLY SIGNED BY: LARISSA LEMONS Jr., MD DATE: 02/13/251717 ASSESSMENT: Acute hypoxemic respiratory failure POA 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 Acute hypoxemic respiratory failure POA Patient is currently intubated on CPAP, weaned off from propofol and fentanyl drips. Chest x-ray on presentation showed diffuse bilateral pneumonia with ARDS type picture. CT chest on presentation showed bilateral airspace opacities involving nearly entire lung curtis raising concern for severe diffuse pneumonia/ARDS like pattern Patient is currently intubated on CPAP, weaned off from propofol and fentanyl drips. Continue Solu-Medrol 40mg IV bid DuoNeb inhalation q.4h Pulmonology on board, we will continue to follow the recommendations Suspected Pneumocystis Jirovecii Pneumonia (PJP )POA Chest x-ray on presentation showed diffuse bilateral pneumonia with ARDS type picture CT chest showed bilateral airspace opacities involving nearly entire lung curtis raising concern for severe diffuse pneumonia/ARDS like pattern Continue fluconazole 200 mg IV Q 24 , TMP SMX q.6 Continue on IV cefepime2 g q.12h , doxycycline q.12h IV Pulmonology, Infectious Disease on board. We will follow their recommendations. HIV infection with AIDS as he has a CD4 count of 19 Patient had history of on unsafe sexual practices with multiple partners reported by her sister HIV1 and 2 Ab, HIV P 24 Ag evaluation showed preliminary positive for both HIV1 and 2 antigen/antibody, 4th gen preliminary reactive Absolute CD4 count 19, CD4/CD8 ratio 0.04 HIV 1RNA PCR showed a viral load of [id number] Infectious Disease started Isentress 400 mg b.i.d., travuda tablet p.o. daily on 02/10/2025 Case management working with [facility] for HIV management. ID on board. Sepsis POA On presentation to ED patient's temperature 100.2, pulse 112, respiratory rate 28, lactic acid 2, procalcitonin 1.55 Chest x-ray showed diffuse bilateral pneumonia with ARDS type picture CT chest showed bilateral airspace opacities involving nearly entire lung curtis raising concern for severe diffuse pneumonia/ARDS like pattern Continue fluconazole 200 mg IV Q 24 , TMP SMX q.6 Continue on IV cefepime2 g q.12h , continue doxycycline q.12h IV Lactic acid today 4.3 We will trend white count, lactic acid Uncontrolled hyperglycemia secondary to steroids Blood glucose in the morning was 322 and well elevated likely from steroids. Continue to monitor the blood glucose level. Continue insulin sliding scale. Tuberculosis R/O POA 3 out of 3 sputum samples collected for AFB smear. Sputum sample is sent for respiratory culture, we will follow up with the culture results. No acid-fast bacilli in smear from first 2 samples, studies to continue. GI prophylaxis with Pepcid 20 mg IV DVT prophylaxis with heparin 5000 SQ q.12h ATTESTATION BY PHYSICIAN I have seen and examined the patient. I reviewed the documentation, medical decision making, and treatment plan as noted by the resident physician above. I agree with the findings and plan of care. DIANN MITCHELL MD, ABHINAV MD Feb 13, 2025 15:29
--- NOTE | 2025-02-13 15:38 | NUR ---
[facility] Consult: Patient assessed by wound healing team. See wound assessment. Assessment and recommendations provided to primary nurse. Education provided.
--- NOTE | 2025-02-13 16:19 | HMCIMG ---
EXAM: CR Chest, 1 View. CLINICAL HISTORY: pneumonia COMPARISON: 02/12/2025 FINDINGS: The right PICC line tip overlying the SVC Endotracheal tube with its tip 3.9 cm short of the catina. The nasogastric catheter is seen up to the proximal stomach. LUNGS: Interval improvement in the bilateral lung aeration, with an interval decrease in the left lower zone infiltrates. PLEURAL SPACES: No evidence of pleural effusion or pneumothorax. MEDIASTINUM: Cardiac size is stable. BONES: No acute osseous abnormality. IMPRESSION: 1. Interval improvement in bilateral lung aeration, with decreased left lower zone infiltrates. 2. Right PICC line tip overlying the SVC, endotracheal tube tip 3.9 cm proximal to the catina, and nasogastric catheter tip in the proximal gastric body. /[place]
--- NOTE | 2025-02-13 19:05 | PN ---
[facility] PROGRESS NOTE Date Patient Seen: Feb 13, 2025 Time of Visit: 13:59 Supervising Physician: LAURA Primary Care Physician: [Avi LESTER] Outpatient Specialists: [ ] Inpatient Consults: [Dr. Prince, LAURA team-ICU] PROBLEM LIST: Acute hypoxemic and hypercarbic respiratory failure ARDS Community-acquired pneumonia suspected Pneumocystis Toxic metabolic encephalopathy on admission Acute sepsis on admission without septic shock secondary to community-acquired pneumonia HIV positive newly diagnosed stage IV. Not on anti-retroviral medication CD4 count: 19 Immunocompromise status Obstructive sleep apnea, untreated/undiagnosed Morbid obesity, BMI 33.6 JUAN Volume overload INTERVAL HISTORY: Patient seen and examined all labs have been reviewed. Family at bedside. Patient has been afebrile. Patient continues on Ventilator support, seems to be hyperventilated suspected for central hyperventilation syndrome therefore plan is to obtain CT of the head without contrast patient condition is very poor, he continues to be on precedex, he is on peg tube feedings, Ventilator settings FIO2 50%, neurological howell no changes not responding plan is to obtain EEG, ammonia level and US of liver. If there is not significant findings we might need to order an spinal tap. Plan: CT OF THE HEAD WITHOUT CONTRAST Follow Blood and sputum cultures Continue on Cefepime, Doxy, Bactrim, and fluconazole per ID. Follow nephrology recommendations, avoid and nephrotoxic medications. Total critical care time spent 40 minutes, this excludes any procedures performed or any time spent in educational or teaching. REVIEW OF SYSTEMS: Patient on Precedex drip, unable to obtain information from patient. PHYSICAL EXAM: Obese GENERAL: on Vent assistance, responding to self HEENT: EOMI, Sclera non icteric, moist mucosa NECK: Supple, no JVD, trachea midline LUNGS: Fine crackles bilaterally. HEART: Regular rate and rhythm. Normal S1 and S2, without murmurs ABD: Abdomen soft, nontender. Bowel sounds present, obese EXT: No clubbing cyanosis or edema : Dias in situ NEURO: sedated Vital Signs (last 8hr) Date Time Temp Pulse Resp B/P (MAP) Pulse Ox O2 Delivery O2 Flow Rate FiO2 02/13/25 18:50 87 31 02/13/25 18:49 86 50 02/13/25 18:30 85 29 131/72 (91) 98 50 02/13/25 18:15 85 37 127/72 (90) 97 50 12/8/25 18:00 84 27 124/68 (86) 97 50 02/13/25 17:45 83 27 106/58 (74) 96 50 02/13/25 17:30 85 29 118/61 (80) 96 50 02/13/25 17:15 85 28 114/64 (81) 95 50 02/13/25 17:00 89 28 120/70 (87) 96 50 02/13/25 16:55 86 28 113/63 (80) 92 50 02/13/25 16:52 96/48 02/13/25 16:50 85 43 96/48 (64) 90 50 02/13/25 16:45 85 25 98/44 (62) 92 50 02/13/25 16:30 86 33 94/44 (61) 91 50 02/13/25 16:06 98.8 02/13/25 16:00 90 30 114/60 (78) 94 50 02/13/25 16:00 94 Ventilator+ 50 02/13/25 16:00 50 02/13/25 15:45 90 31 104/46 (65) 90 50 02/13/25 15:30 93 30 117/66 (83) 94 50 02/13/25 15:15 93 31 119/64 (82) 94 50 02/13/25 14:52 97 50 02/13/25 14:00 97 32 151/84 (106) 94 50 02/13/25 13:45 96 30 154/86 (108) 93 50 02/13/25 13:30 96 32 153/91 (111) 93 50 02/13/25 13:15 96 33 153/87 (109) 94 50 02/13/25 13:00 95 28 156/85 (108) 94 50 02/13/25 12:45 93 33 151/85 (107) 93 50 02/13/25 12:30 92 32 153/86 (108) 92 50 02/13/25 12:15 93 32 155/90 (111) 92 50 02/13/25 12:15 50 02/13/25 12:10 60 02/13/25 12:05 99.3 02/13/25 12:00 94 33 160/88 (112) 86 50 02/13/25 11:57 175/96 02/13/25 11:49 102 40 12/8/25 11:49 40 02/13/25 11:45 99 Ventilator+ 60 02/13/25 11:45 102 29 175/96 (122) 93 60 02/13/25 11:45 60 02/13/25 11:15 90 31 159/90 (113) 99 60 02/13/25 11:05 90 31 02/13/25 11:00 91 29 168/89 (115) 98 60 LABS: Hematology Labs: Test 02/13/25 04:54 02/12/25 04:28 Range/Units White Blood Count 6.7 4.8-10.8 K/uL Red Blood Count 2.73 L 4.50-6.20 MIL/uL Hemoglobin 7.8 L 14.0-18.0 g/dL Hematocrit 23.3 L 42-54 % Mean Corpuscular Volume 85.3 79-99 fL Mean Corpuscular Hemoglobin 28.6 27.0-33.0 pg Mean Corpuscular Hemoglobin Concent 33.5 32.0-36.0 g/dL Red Cell Distribution Width 13.3 11.0-15.5 % Platelet Count 116 L 130-400 K/uL Mean Platelet Volume 10.1 7.5-10.5 fL Segmented Neutrophils % 88 H 40-70 % Band Neutrophils % 11 H 0-2 % Lymphocytes % (Manual) 1 L 22-44 % Nucleated Red Blood Cells 0.3 H 0.0-0.19 % Differential Comment MANUAL DIFFERENTIAL White Cell Morphology Comment SMUDGE CELLS 2+ Platelet Morphology Comment SLIGHTLY DECREASED Red Blood Cell Morphology TEARDROP CELLS 2+ Immature Granulocyte % (Auto) 1.8 H 0-1 % Neutrophils (%) (Auto) 95.2 H 40.0-77.0 % Lymphocytes (%) (Auto) 2.0 L 21.0-51.0 % Monocytes (%) (Auto) 1.0 L 3.0-13.0 % Eosinophils (%) (Auto) 0.0 0.0-8.0 % Basophils (%) (Auto) 0.0 0.0-5.0 % Neutrophils # (Auto) 6.8 1.8-7.7 K/uL Lymphocytes # (Auto) 0.1 L 1.0-4.8 K/uL Monocytes # (Auto) 0.1 0.1-1.0 K/uL Eosinophils # (Auto) 0.00 0.00-0.70 K/uL Basophils # (Auto) 0.00 0.00-0.20 K/uL Absolute Immature Granulocyte (auto 0.13 0-1 K/uL Chemistry Labs: Test 02/13/25 18:04 02/13/25 12:40 02/13/25 08:40 02/13/25 04:54 Range/Units Whole Blood Glucose 134 H 70-110 MG/DL Lactic Acid Level 4.3 H 0.8-2.5 mmol/L Procalcitonin 0.82 H 0.05-0.5 ng/mL Sodium Level 129 L 136-145 mmol/L Potassium Level 5.4 H 3.5-5.1 mmol/L Chloride Level 97 L 101-111 mmol/L Carbon Dioxide Level 19 L 21-32 mmol/L Blood Urea Nitrogen 70 H 7-18 mg/dL Creatinine 2.0 H 0.5-1.3 mg/dL Glomerular Filtration Rate Calc 42 >90 mL/min Random Glucose 150 H 70-105 mg/dL Total Calcium 7.2 L 8.5-10.1 mg/dL Phosphorus Level 4.7 2.5-4.9 mg/dL Magnesium Level 2.00 1.80-2.40 mg/dL Total Bilirubin 0.6 0.2-1.0 mg/dL Aspartate Amino Transf (AST/SGOT) 85 H 10-37 U/L Alanine Aminotransferase (ALT/SGPT) 67 12-78 U/L Alkaline Phosphatase 113 50-136 U/L Total Protein 5.2 L 6.0-8.3 g/dL Albumin 1.4 L 3.5-5.0 g/dL DIAGNOSTICS / RADIOLOGY RESULTS: [ ] PLAN NEURO: Minimize central acting medications as possible. Maintain fall precautions, adequate lighting during the day PULMONARY: Supplemental 02 as needed. Maintain aspiration precautions at all times CARDIOVASCULAR: Follow hemodynamics. Vital signs per facility protocol GI & NUTRITION: Continue with nutritional support. Continue stool softeners and laxatives as needed. KIDNEYS & ELECTROLYTES: Strict monitoring of intake, output and overall fluid balance. Avoid nephrotoxic medications to the extent possible. Medications to be dosed according to renal function. Monitor electrolytes and replace as needed ENDOCRINE: Maintain blood glucose between 100-180 at all times. Hypoglycemia protocol in place INFECTIOUS DISEASE: Trend temperature, WBC and procalcitonin level Follow cultures, deescalate antibiotics as soon as possible. Panculture if new onset fever ONCOLOGY/HEMATOLOGY/COAGULATION: Monitor for s/s of bleeding Monitor hemoglobin, coagulation studies as needed SKIN: Pressure ulcer prevention per facility protocol Specialty mattress ORTHO/REHAB: Continue PT/OT Prophylaxis: Continue GI and DVT prophylaxis Code Status: Full Resuscitation Disposition: TBD ATTESTATION BY PHYSICIAN Documentation assistance provided by a scribe, information recorded by the scribe was done at my direction and has been reviewed and validated by me." EDDIE CLARK MD I personally scribed for EDDIE CLARK MD ([email or web address]) on 02/13/25 at 19:05. Electronically submitted by Taylor Ospina ([email or web address]). I personally scribed for EDDIE CLARK MD ([email or web address]) on 02/14/25 at 06:50. Electronically submitted by Taylor Ospina ([email or web address]). EDDIE CLARK MD Feb 13, 2025 19:05
--- NOTE | 2025-02-13 21:21 | PN ---
INFECTIOUS DISEASE PROGRESS NOTE Date of Service: Feb 13, 2025 SUBJECTIVE: This is a 44-year-old male patient who was seen at bedside in room 217. Patient remains intubated. The blood culture results still has not been updated and remained as preliminary growing Gram-positive cocci in cluster 1 of 2 sets. We will continue on cefepime, Bactrim, doxycycline and fluconazole and follow up on the final culture results. Continues on Truvada and Raltegravir. We will continue to follow patient's care. PHYSICAL EXAM EYES: Anicteric. Pupils equal and reactive. HENT: Oral thrush. NGT. NECK: Supple, no JVD or thyromegaly. LUNGS: On mechanical ventilatory support. CARDIOVASCULAR: S1, S2 regular. No murmur heard. ABDOMEN: Soft, non tender, bowel sounds present, no organomegaly. CENTRAL NERVOUS SYSTEM: Intubated. SKIN: Rash on abdomen and lower extremities. LYMPHATICS: No peripheral lymphadenopathy MUSCULOSKELETAL: No joint swelling, erythema or tenderness. EXTREMITIES: No cyanosis or clubbing. Weakness. BACK: No deformity, no pressure ulcer. GENITOURINARY: No dysuria or hematuria. Dias catheter. Vital Sign (Last 12 Hours) 02/13/25 02/13/25 02/13/25 02/13/25 09:30 09:30 09:30 09:30 Pulse 96 90 Resp 30 B/P (MAP) 124/72 (89) Pulse Ox 95 FiO2 60 60 60 60 02/13/25 02/13/25 02/13/25 02/13/25 09:45 10:00 10:15 10:30 Pulse 89 89 89 89 Resp 26 28 28 29 B/P (MAP) 123/71 (88) 125/71 (89) 125/73 (90) 138/76 (96) Pulse Ox 95 95 96 97 FiO2 60 60 60 60 02/13/25 02/13/25 02/13/25 02/13/25 10:45 11:00 11:05 11:15 Pulse 90 91 90 90 Resp 27 29 31 31 B/P (MAP) 140/81 (100) 168/89 (115) 159/90 (113) Pulse Ox 98 98 99 FiO2 60 60 60 02/13/25 02/13/25 02/13/25 02/13/25 11:45 11:45 11:45 11:49 Pulse 102 Resp 29 B/P (MAP) 175/96 (122) Pulse Ox 93 99 O2 Delivery Ventilator+ FiO2 60 60 60 40 02/13/25 02/13/25 02/13/25 02/13/25 11:49 11:57 12:00 12:05 Temp 99.3 Pulse 102 94 Resp 33 B/P (MAP) 175/96 160/88 (112) Pulse Ox 86 FiO2 40 50 02/13/25 02/13/25 02/13/25 02/13/25 12:10 12:15 12:15 12:30 Pulse 93 92 Resp 32 32 B/P (MAP) 155/90 (111) 153/86 (108) Pulse Ox 92 92 FiO2 60 50 50 50 02/13/25 02/13/25 02/13/25 02/13/25 12:45 13:00 13:15 13:30 Pulse 93 95 96 96 Resp 33 28 33 32 B/P (MAP) 151/85 (107) 156/85 (108) 153/87 (109) 153/91 (111) Pulse Ox 93 94 94 93 FiO2 50 50 50 50 02/13/25 02/13/25 02/13/25 02/13/25 13:45 14:00 14:52 15:15 Pulse 96 97 97 93 Resp 30 32 31 B/P (MAP) 154/86 (108) 151/84 (106) 119/64 (82) Pulse Ox 93 94 94 FiO2 50 50 50 50 02/13/25 02/13/25 02/13/25 02/13/25 15:30 15:45 16:00 16:00 Pulse 93 90 Resp 30 31 B/P (MAP) 117/66 (83) 104/46 (65) Pulse Ox 94 90 94 O2 Delivery Ventilator+ FiO2 50 50 50 50 02/13/25 02/13/25 02/13/25 02/13/25 16:00 16:06 16:30 16:45 Temp 98.8 Pulse 90 86 85 Resp 30 33 25 B/P (MAP) 114/60 (78) 94/44 (61) 98/44 (62) Pulse Ox 94 91 92 FiO2 50 50 50 02/13/25 02/13/25 02/13/25 02/13/25 16:50 16:52 16:55 17:00 Pulse 85 86 89 Resp 43 28 28 B/P (MAP) 96/48 (64) 96/48 113/63 (80) 120/70 (87) Pulse Ox 90 92 96 FiO2 50 50 50 02/13/25 02/13/25 02/13/25 02/13/25 17:15 17:30 17:45 18:00 Pulse 85 85 83 84 Resp 28 29 27 27 B/P (MAP) 114/64 (81) 118/61 (80) 106/58 (74) 124/68 (86) Pulse Ox 95 96 96 97 FiO2 50 50 50 50 02/13/25 02/13/25 02/13/25 02/13/25 18:15 18:30 18:45 18:49 Pulse 85 85 85 86 Resp 37 29 27 B/P (MAP) 127/72 (90) 131/72 (91) 131/75 (93) Pulse Ox 97 98 97 FiO2 50 50 50 02/13/25 02/13/25 02/13/25 18:50 20:00 20:20 Temp 99.9 Pulse 87 Resp 31 O2 Delivery Ventilator FiO2 50 50 Intake & Output (last 24hrs) 02/12/25 02/12/25 02/13/25 15:00 23:00 07:00 Intake Total 960.5 ml 1532.7 ml 1376.4 ml Output Total 1000 ml 2400 ml 900 ml Balance -39.5 ml -867.3 ml 476.4 ml LABS: Laboratory: Test 02/13/25 18:04 02/13/25 12:40 02/13/25 08:40 02/13/25 07:17 Range/Units Whole Blood Glucose 134 H 70-110 MG/DL Lactic Acid Level 4.3 H 0.8-2.5 mmol/L Procalcitonin 0.82 H 0.05-0.5 ng/mL Blood Gas Specimen Type Arterial Arterial Blood pH 7.598 H 7.350-7.450 Arterial Blood Partial Pressure CO2 < 15 *L 35-48 mmHg Arterial Blood Partial Pressure O2 173.1 H 83.0-108.0 mmHg Arterial Blood HCO3 13.8 L 21.0-28.0 mmol/L Arterial Blood Oxygen Saturation 99.0 H 94.0-98.0 % Arterial Blood Base Excess -7.6 L -2.0-3.0 mmol/L Hemoglobin (Blood Gas) < 5.0 #*L 13.5-17.5 g/dL Sodium (Blood Gas) 125 L 136-145 MMOL/L Bedside Potassium (Blood Gas) 5.3 H 3.4-4.5 MMOL/L Bedside Chloride (Blood Gas) 101 98-107 MMOL/L Bedside Glucose (Blood Gas) 97 H 65-95 MG/DL Bedside Ionized Calcium (Blood Gas) 0.94 L 1.15-1.33 MMOL/L Bedside Lactic Acid (Blood Gas) 4.61 *H 0.36-0.75 MMOL/L Blood Gas Temperature 37.0 35.5-37.0 CELSIUS Blood Gas Respiration Rate 12.0 min. Blood Gas Vent Mode AC ROOM AIR FiO2 100.0 % Blood Gas Tidal Volume 500 ml Blood Gas PEEP 5 cm H2O Blood Gas Specimen Comment RRRENE Test 02/13/25 04:54 02/12/25 04:28 Range/Units White Blood Count 6.7 4.8-10.8 K/uL Red Blood Count 2.73 L 4.50-6.20 MIL/uL Hemoglobin 7.8 L 14.0-18.0 g/dL Hematocrit 23.3 L 42-54 % Mean Corpuscular Volume 85.3 79-99 fL Mean Corpuscular Hemoglobin 28.6 27.0-33.0 pg Mean Corpuscular Hemoglobin Concent 33.5 32.0-36.0 g/dL Red Cell Distribution Width 13.3 11.0-15.5 % Platelet Count 116 L 130-400 K/uL Mean Platelet Volume 10.1 7.5-10.5 fL Segmented Neutrophils % 88 H 40-70 % Band Neutrophils % 11 H 0-2 % Lymphocytes % (Manual) 1 L 22-44 % Nucleated Red Blood Cells 0.3 H 0.0-0.19 % Differential Comment MANUAL DIFFERENTIAL White Cell Morphology Comment SMUDGE CELLS 2+ Platelet Morphology Comment SLIGHTLY DECREASED Red Blood Cell Morphology TEARDROP CELLS 2+ Sodium Level 129 L 136-145 mmol/L Potassium Level 5.4 H 3.5-5.1 mmol/L Chloride Level 97 L 101-111 mmol/L Carbon Dioxide Level 19 L 21-32 mmol/L Blood Urea Nitrogen 70 H 7-18 mg/dL Creatinine 2.0 H 0.5-1.3 mg/dL Glomerular Filtration Rate Calc 42 >90 mL/min Random Glucose 150 H 70-105 mg/dL Total Calcium 7.2 L 8.5-10.1 mg/dL Phosphorus Level 4.7 2.5-4.9 mg/dL Magnesium Level 2.00 1.80-2.40 mg/dL Total Bilirubin 0.6 0.2-1.0 mg/dL Aspartate Amino Transf (AST/SGOT) 85 H 10-37 U/L Alanine Aminotransferase (ALT/SGPT) 67 12-78 U/L Alkaline Phosphatase 113 50-136 U/L Total Protein 5.2 L 6.0-8.3 g/dL Albumin 1.4 L 3.5-5.0 g/dL Immature Granulocyte % (Auto) 1.8 H 0-1 % Neutrophils (%) (Auto) 95.2 H 40.0-77.0 % Lymphocytes (%) (Auto) 2.0 L 21.0-51.0 % Monocytes (%) (Auto) 1.0 L 3.0-13.0 % Eosinophils (%) (Auto) 0.0 0.0-8.0 % Basophils (%) (Auto) 0.0 0.0-5.0 % Neutrophils # (Auto) 6.8 1.8-7.7 K/uL Lymphocytes # (Auto) 0.1 L 1.0-4.8 K/uL Monocytes # (Auto) 0.1 0.1-1.0 K/uL Eosinophils # (Auto) 0.00 0.00-0.70 K/uL Basophils # (Auto) 0.00 0.00-0.20 K/uL Absolute Immature Granulocyte (auto 0.13 0-1 K/uL ASSESSMENT: Gram-positive bacteremia. Acute hypoxic and hypercapnic respiratory failure, s/p intubation. Multifocal pneumonia. Suspected advanced stage HIV, not on anti-retroviral therapy, POA. Suspected Pneumocystis pneumonia, ruled out. Sepsis. Acute renal failure. Oral candidiasis. Morbid obesity. PLAN: Continue on Truvada and Raltegravir. Continue Bactrim IV. Continue fluconazole IV. Continue doxycycline IV. Continue cefepime. Obtain urine culture. Continue GI prophylaxis. Continues on mechanical ventilatory support. Continue critical care support. We will follow up on the final blood culture results. This case was reviewed and discussed with my supervising physician Dr. Sigala and the above assessment and plan was formulated and agreed upon. ATTESTATION BY PHYSICIAN I have seen and examined the patient. I reviewed the documentation, medical decision making, and treatment plan as noted by the mid-level provider above. I agree with the findings and plan of care. MIRZA SIGALA MD, MIRTA L [facility] Feb 13, 2025 21:21
[2025-02-14] VITALS (110 sets, daily range): BP systolic 88–144; BP diastolic 45–87; PULSE 74–120; RESP 18–47; TEMP 97.6–98.4; O2SAT 93–99
[2025-02-14 03:48] LABS: ABG BASE EXCESS -7.7 mmol/L (-2.0-3.0); ABG HCO3 16.8 mmol/L (21.0-28.0); ABG OXYGEN SATURATION 98.0 % (94.0-98.0); ABG PCO2 32 mmHg (35-48); ABG PH 7.340 (7.350-7.450); PO2, ARTERIAL BG 114.2 mmHg (83.0-108.0); TEMPERATURE, CELSIUS BG 37.0 CELSIUS (35.5-37.0); VENT MODE, BG AC VC (ROOM AIR)
[2025-02-14 03:48] LABS: NUCLEATED RED BLOOD CELLS 0.3 % (0.0-0.19); PLATELET COUNT (AUTO) 108.0 K/uL (130-400); RED BLOOD CELL COUNT(AUTO) 2.82 MIL/uL (4.50-6.20); RED CELL DISTRIBUTION WIDTH 13.1 % (11.0-15.5); WHITE BLOOD COUNT (AUTO) 6.6 K/uL (4.8-10.8)
[2025-02-14 03:53] LABS: ASPARTATE AMINOTRANSFERASE 94.0 U/L (10-37); CREATININE 1.9 mg/dL (0.5-1.3); GLOMERULAR FILTR. RATE CALC 45.0 mL/min (>90); GLUCOSE,RANDOM 107.0 mg/dL (70-105); PHOSPHORUS 4.1 mg/dL (2.5-4.9); SODIUM SERUM 128.0 mmol/L (136-145); TOTAL PROTEIN, SERUM 5.3 g/dL (6.0-8.3); UREA NITROGEN, BLOOD 66.0 mg/dL (7-18)
--- NOTE | 2025-02-14 05:56 | PN ---
NEPHROLOGY NOTE SUBJECTIVE: This patient has multiple problems including renal failure anemia, new diagnosis of HIV, respiratory failure, mechanical ventilation, hypoxic hypercapnic respiratory failure, ARDS, and pneumonia. The patient has suspected pneumocystis, encephalopathic, respiratory failure, sepsis, septic shock, and the patient has renal failure with hyperkalemia, being monitored on all these issues. The patient remains critically ill. Ventilator has been as high as FiO2 up to 50%. No other changes. Critically ill patient. REVIEW OF SYSTEMS: Not possible from the patient. Intubated, mechanically ventilated with multiple comorbidities as above. PHYSICAL EXAMINATION: GENERAL: Critically lying in bed. VITAL SIGNS: Blood pressure 131/72, pulse 85, respiratory rate is 29. HEENT: Head is atraumatic, normocephalic. Pupils are round and reactive. Sclerae are anicteric. Conjunctivae not pale. Oral mucosa is not dry. NECK: Thyroid is palpable. Neck has no bruits. LUNGS: Shows equal thoracic percussion note being resonant in all areas. CARDIAC: Regular rhythm. No rub. No S3. No S4 NEUROLOGIC: The patient neurologically difficult to assess. BACK: No tenderness. No back deformity. LABORATORY DATA: Labs have been reviewed. Potassium is high. Hemoglobin 7.8. The patient's sodium is low. Creatinine is elevated up to 2. IMAGING STUDIES: Imaging studies are reviewed. PROBLEMS: Acute renal failure. Hyperkalemia with most likely Bactrim induced. Suspected Pneumocystis pneumonia. Encephalopathy. Hypoxic hypercapnic respiratory failure. Immunocompromised state: HIV. Sleep apnea. Obesity. Other comorbidities. PLAN: Plan will be continued monitoring of renal function and electrolytes to continue monitoring of overall status. Intake, output, weight will be monitored. Nonsteroidal drugs will be avoided. Dose of medicine will be adjusted. I have discussed with the team physician adjust dose of Bactrim. Use it only if absolutely necessary and follow up on blood pressure, anemia, renal function, overall status. Condition is critically guarded. We have discussed and seen in ICU. Discussed with the team physicians. Followup labs have been ordered, and old and external records. CBC and CMP ordered. TID: [id number] RECEIPT: [id number]
[2025-02-14] MEDS: SODIUM BICARB 50MEQ 50ML VIAL IV ONE (06:12)
--- NOTE | 2025-02-14 06:23 | HMCIMG ---
EXAM: CR Chest, 1 View. CLINICAL HISTORY: ET Tube Advanced COMPARISON: 02/13/2025; 5:04 EST FINDINGS: The endotracheal tube with its tip 5.2 cm away from the catina. The right PICC line tip overlying the SVC The nasogastric catheter is seen up to the proximal stomach. LUNGS: Essentially stable appearance of bilateral lung curtis. PLEURAL SPACES: No pleural effusion or pneumothorax. MEDIASTINUM: Cardiac size is stable. BONES: No aggressive appearing osseous lesion seen. IMPRESSION: 1. Endotracheal tube tip 5.2 cm from catina. 2. Right PICC line tip overlying SVC. 3. Nasogastric tube in the proximal stomach. 4. Essentially stable appearance of bilateral lung curtis. /[place]
[2025-02-14] MEDS: NA ZIRCON CYCLOSIL(LOKELMA 10GM) PO ONE (08:53)
--- NOTE | 2025-02-14 09:24 | PN ---
[facility] PROGRESS NOTE Date Patient Seen: Feb 14, 2025 Time of Visit: 09:24 Supervising Physician: Dr. Brush Primary Care Physician: [Avi LESTER] Outpatient Specialists: [ ] Inpatient Consults: [Dr. Sigala-ID, [facility] team-ICU] PROBLEM LIST: Acute hypoxemic and hypercarbic respiratory failure ARDS Community-acquired pneumonia suspected Pneumocystis Toxic metabolic encephalopathy on admission Acute sepsis on admission without septic shock secondary to community-acquired pneumonia HIV positive newly diagnosed stage IV. Not on anti-retroviral medication CD4 count: 19 Immunocompromise status Obstructive sleep apnea, untreated/undiagnosed Morbid obesity, BMI 33.6 JUAN Volume overload INTERVAL HISTORY: Patient evaluated at bedside with multiple family members present. Patient remains with the TTE at this time, he is awake and alert, currently on CPAP at 40% FiO2. He is more responsive today but remains weak. Following dire ctions well. He continues on low-dose Precedex Peg tube is patent and he is tolerating tube feedings EEG has been performed, pending report. Currently pending CT scan. Ammonia level is normal this morning. White count of 6.6, hemoglobin 7.9, renal function at 1.9 today. He continues on Solu-Medrol 40 b.i.d., cefepime, doxycycline, fluconazole. Patient's prognosis remains guarded, he remains critically ill. We will continue to monitor overnight plan for tentative extubation in the morning. Plan: Pending EEG report Plan for tentative extubation tomorrow Pending CT of the head Continue CPAP Follow Blood and sputum cultures Continue on Cefepime, Doxy, Bactrim, and fluconazole per ID. Follow nephrology recommendations, avoid and nephrotoxic medications. Total critical care time spent 40 minutes, this excludes any procedures performed or any time spent in educational or teaching. REVIEW OF SYSTEMS: Patient on Precedex drip, unable to obtain information from patient. PHYSICAL EXAM: Obese GENERAL: on Vent assistance, responding to self HEENT: EOMI, Sclera non icteric, moist mucosa NECK: Supple, no JVD, trachea midline LUNGS: Fine crackles bilaterally. HEART: Regular rate and rhythm. Normal S1 and S2, without murmurs ABD: Abdomen soft, nontender. Bowel sounds present, obese EXT: No clubbing cyanosis or edema : Dias in situ NEURO: sedated Vital Signs (last 8hr) Date Time Temp Pulse Resp B/P (MAP) Pulse Ox O2 Delivery O2 Flow Rate FiO2 02/14/25 07:30 98 27 124/66 (85) 93 40 02/14/25 07:30 97.7 02/14/25 07:17 40 02/14/25 07:15 102 29 133/70 (91) 97 50 02/14/25 07:00 95 27 129/73 (91) 99 50 02/14/25 06:45 97 25 129/73 (91) 98 02/14/25 06:30 93 27 120/71 (87) 98 02/14/25 06:15 89 23 129/76 (93) 98 02/14/25 06:00 90 29 129/74 (92) 99 02/14/25 05:45 83 27 127/78 (94) 99 02/14/25 05:30 81 24 123/75 (91) 99 02/14/25 05:15 79 25 114/69 (84) 98 02/14/25 05:00 77 26 109/66 (80) 98 50 02/14/25 04:45 77 27 100/60 (73) 98 02/14/25 04:30 77 30 100/55 (70) 100 02/14/25 04:22 50 02/14/25 04:15 74 24 108/62 (77) 98 02/14/25 04:00 97.5 Ventilator 50 02/14/25 04:00 97 Ventilator+ 50 02/14/25 04:00 97.5 74 26 94/51 (65) 95 50 02/14/25 03:53 79 50 02/14/25 03:45 76 23 93/50 (64) 95 02/14/25 03:30 78 22 106/60 (75) 98 02/14/25 03:15 77 24 110/62 (78) 99 02/14/25 03:00 78 25 115/64 (81) 98 50 02/14/25 02:45 81 19 121/63 (82) 98 02/14/25 02:30 80 26 130/71 (90) 100 02/14/25 02:15 80 21 121/66 (84) 98 02/14/25 02:00 83 18 123/69 (87) 99 50 02/14/25 01:45 83 23 131/71 (91) 99 02/14/25 01:30 86 26 135/72 (93) 98 LABS: Hematology Labs: Test 02/14/25 03:18 02/13/25 04:54 Range/Units White Blood Count 6.6 4.8-10.8 K/uL Red Blood Count 2.82 L 4.50-6.20 MIL/uL Hemoglobin 7.9 L 14.0-18.0 g/dL Hematocrit 23.7 L 42-54 % Mean Corpuscular Volume 84.0 79-99 fL Mean Corpuscular Hemoglobin 28.0 27.0-33.0 pg Mean Corpuscular Hemoglobin Concent 33.3 32.0-36.0 g/dL Red Cell Distribution Width 13.1 11.0-15.5 % Platelet Count 108 L 130-400 K/uL Mean Platelet Volume 9.9 7.5-10.5 fL Nucleated Red Blood Cells 0.3 H 0.0-0.19 % Segmented Neutrophils % 88 H 40-70 % Band Neutrophils % 11 H 0-2 % Lymphocytes % (Manual) 1 L 22-44 % Differential Comment MANUAL DIFFERENTIAL White Cell Morphology Comment SMUDGE CELLS 2+ Platelet Morphology Comment SLIGHTLY DECREASED Red Blood Cell Morphology TEARDROP CELLS 2+ Chemistry Labs: Test 02/14/25 05:32 02/14/25 03:18 02/13/25 12:40 02/13/25 08:40 Range/Units Whole Blood Glucose 119 H 70-110 MG/DL Sodium Level 128 L 136-145 mmol/L Potassium Level 5.4 H 3.5-5.1 mmol/L Chloride Level 96 L 101-111 mmol/L Carbon Dioxide Level 19 L 21-32 mmol/L Blood Urea Nitrogen 66 H 7-18 mg/dL Creatinine 1.9 H 0.5-1.3 mg/dL Glomerular Filtration Rate Calc 45 >90 mL/min Random Glucose 107 H 70-105 mg/dL Total Calcium 7.7 L 8.5-10.1 mg/dL Phosphorus Level 4.1 2.5-4.9 mg/dL Magnesium Level 2.10 1.80-2.40 mg/dL Total Bilirubin 0.5 0.2-1.0 mg/dL Direct Bilirubin 0.3 0.0-0.3 mg/dL Aspartate Amino Transf (AST/SGOT) 94 H 10-37 U/L Alanine Aminotransferase (ALT/SGPT) 63 12-78 U/L Alkaline Phosphatase 110 50-136 U/L Ammonia 32 11-32 umol/L Total Protein 5.3 L 6.0-8.3 g/dL Albumin 1.5 L 3.5-5.0 g/dL Lactic Acid Level 4.3 H 0.8-2.5 mmol/L Procalcitonin 0.82 H 0.05-0.5 ng/mL DIAGNOSTICS / RADIOLOGY RESULTS: [ ] NEURO: Minimize central acting medications as possible. Fall Precautions. Well lighted room through the day and minimize interruptions through the night to prevent acute delirium. PULMONARY: Supplemental 02 as needed Titrate Fio2 to keep Spo2 > or = 90% DuoNebs and CPT as needed IS hourly while awake for pulmonary hygiene Out of bed to chair as tolerated VAP Bundle Vent/BIPAP Settings: [ BIPAP setting / rate of 18 FiO2 60%. ] CARDIOVASCULAR: Follow hemodynamics. Titrate vasopressor to keep MAP >65 or systolic blood pressure >95mmHg DRIPS: [Precedex ] LINES: [PIV] GI & NUTRITION: Continue nutritional support Aspirations precautions Prokinetic agents and laxatives as needed KIDNEYS & ELECTROLYTES: Strict monitoring of intake and output Daily weights Avoid nephrotoxic agents Monitor electrolytes and replace as needed Dias care-prevent CAUTI per nursing Goal urine output of 30mL/hr or 0.5mL/kg/hr Urine output: [ ] Fluid Balance: [ ] ENDOCRINE: Maintain blood glucose between 100-180 at all times. Insulin sliding scale for blood glucose management INFECTIOUS DISEASE: Trend temperature. Lara-culture if febrile. Micro: [ ] Antibiotics: [Vancomycin 01/30- IV Fluconazole: 01/30- IV Sulfa/TMP: 01/30-] HEMATOLOGY & COAGULATION: Monitor H&H. Keep Hgb > 7 Transfuse 1 unit of PRBC for Hgb < 7 Transfuse 1 pack of platelets of platelets < 20, 000 Watch for any signs and symptoms of bleeding SKIN: Pressure ulcer prevention per facility protocol Rehab: PT/OT Prophylaxis: GI: [Pepcid] DVT: [Heparin ] Code Status: Full Resuscitation Disposition: [ICU ] RANDALL LAURA PAC Feb 14, 2025 09:24
--- NOTE | 2025-02-14 11:57 | PN ---
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 Acute hypoxemic respiratory failure POA Patient is currently intubated on CPAP, weaned off from propofol and fentanyl drips. Chest x-ray on presentation showed diffuse bilateral pneumonia with ARDS type picture. CT chest on presentation showed bilateral airspace opacities involving nearly entire lung curtis raising concern for severe diffuse pneumonia/ARDS like pattern Patient is currently intubated on CPAP, weaned off from propofol and fentanyl drips. Continue Solu-Medrol 40mg IV bid DuoNeb inhalation q.4h Pulmonology on board, we will continue to follow the recommendations Suspected Pneumocystis Jirovecii Pneumonia (PJP )POA Chest x-ray on presentation showed diffuse bilateral pneumonia with ARDS type picture CT chest showed bilateral airspace opacities involving nearly entire lung curtis raising concern for severe diffuse pneumonia/ARDS like pattern Continue fluconazole 200 mg IV Q 24 , TMP SMX q.6 Continue on IV cefepime2 g q.12h , doxycycline q.12h IV Pulmonology, Infectious Disease on board. We will follow their recommendations. HIV infection with AIDS as he has a CD4 count of 19 Patient had history of on unsafe sexual practices with multiple partners reported by her sister HIV1 and 2 Ab, HIV P 24 Ag evaluation showed preliminary positive for both HIV1 and 2 antigen/antibody, 4th gen preliminary reactive Absolute CD4 count 19, CD4/CD8 ratio 0.04 HIV 1RNA PCR showed a viral load of [id number] Infectious Disease started Isentress 400 mg b.i.d., travuda tablet p.o. daily on 02/10/2025 Case management working with [facility] for HIV management. ID on board. Sepsis POA On presentation to ED patient's temperature 100.2, pulse 112, respiratory rate 28, lactic acid 2, procalcitonin 1.55 Chest x-ray showed diffuse bilateral pneumonia with ARDS type picture CT chest showed bilateral airspace opacities involving nearly entire lung curtis raising concern for severe diffuse pneumonia/ARDS like pattern Continue fluconazole 200 mg IV Q 24 , TMP SMX q.6 Continue on IV cefepime2 g q.12h , continue doxycycline q.12h IV Lactic acid not trended today We will trend white count, lactic acid Uncontrolled hyperglycemia secondary to steroids Blood glucose in the morning was 322 and well elevated likely from steroids. Continue to monitor the blood glucose level. Continue insulin sliding scale. Tuberculosis R/O POA 3 out of 3 sputum samples collected for AFB smear. Sputum sample is sent for respiratory culture, we will follow up with the culture results. No acid-fast bacilli in smear from first 2 samples, studies to continue. GI prophylaxis with Pepcid 20 mg IV DVT prophylaxis with heparin 5000 SQ q.12h ATTESTATION BY PHYSICIAN I have seen and examined the patient. I reviewed the documentation, medical decision making, and treatment plan as noted by the resident physician above. I agree with the findings and plan of care. DIANN MITCHELL MD, ABHINAV MD Feb 14, 2025 11:56
[2025-02-14] MEDS ORDERED: SODIUM BICARBONATE 650 MG TAB PO SCH (12:00)
--- NOTE | 2025-02-14 13:12 | PRN ---
[place] EEG Note # Demographics Type of EEG Read: - Routine EEG - without video Patient Location: Inpatient First Name: CHARY JACKSON Last Name: MARY Date of : 1980 Age: 44 Gender: Male Facility: [facility] Time of Initial Page (Central Time): 02/14/2025 10:17 First Contact with Site (Central Time): 02/14/2025 10:18 # EEG Interpretation Start Time of EEG Read (Central Time): 02/14/2025 09:04 Stop Time of EEG Read (Central Time): 02/14/2025 09:29 Duration: 0h 25m Technical Details: - The EEG electrodes were placed using the standard International 10-20 system of electrode placement. An accessory EKG lead was used during the course of this study. - This study was recorded using the [employer] EEG software Indication: - altered mental status # Description Photic Stimulation: Performed Phases Captured: - unresponsive Symmetry: symmetric Posterior Dominant Rhythm: absent Predominant Frequencies: There is an excess of generalized theta slowing of the background intermixed with delta activity. Amplitude: low Continuity: continuous EKG: NSR # Abnormalities Stimulation: - photic stimulation does NOT cause abnormalities Epileptiform Abnormalities: - NOT present Focal Slowing: no Seizure: - NOT present # Impression Impression: abnormal 1. Mild to moderate diffuse slowing # Clinical Correlation Clinical Correlation: 1. Diffuse slowing is non-specific and may be seen in the setting of diffuse cerebral dysfunction; such as toxic/metabolic/infectious encephalopathy or heavily sedating medication use. # Logistics Telemedicine: remote EEG review: EEG reviewed remotely # Demographics First Name: CHARY JACKSON Last Name: MARY Facility: [facility] Electronically signed at 02/14/2025 13:10 (Central Time) by MD SANNA Pennington JAMAL F MD Feb 14, 2025 13:12
--- NOTE | 2025-02-14 13:14 | PN ---
NEPHROLOGY PROGRESS NOTE Date/Time Patient Seen: Feb 14, 2025 SUBJECTIVE: This is a 44-year-old male with HIV positive newly diagnosed He was brought by EMS to the ED for complaints of shortness of breaths for the past two weeks. He has been in the hospital for several days He continues on antibiotics, including Bactrim, as per ID. He was noted to have elevated BUN/creatinine We are consulted for renal failure Renal function continues to worsen Electrolytes show hyperkalemia He was seen in the ICU, Nurse reports fevers Continues to be intubated and sedated Family at the bedside Prognosis remains guarded REVIEW OF SYSTEMS: Difficult to obtain given status of the patient who remains intubated mechanically ventilated Vital Signs (last 8hr) Date Time Temp Pulse Resp B/P (MAP) Pulse Ox O2 Delivery O2 Flow Rate FiO2 02/14/25 12:45 104 27 132/71 (91) 92 40 02/14/25 12:30 93 CPAP+ 40 02/14/25 12:30 40 02/14/25 12:30 105 27 131/74 (93) 93 40 02/14/25 12:15 106 27 139/75 (96) 93 40 02/14/25 12:00 107 25 142/78 (99) 93 40 02/14/25 11:48 97.9 02/14/25 11:45 106 26 137/73 (94) 94 40 02/14/25 11:41 109 40 02/14/25 11:30 106 29 140/72 (94) 97 40 02/14/25 11:15 97 26 138/77 (97) 97 40 02/14/25 11:00 97 26 139/80 (99) 96 40 02/14/25 10:45 97 25 140/87 (104) 97 40 02/14/25 10:30 92 27 136/81 (99) 98 40 02/14/25 10:15 89 28 124/76 (92) 98 40 02/14/25 10:00 85 29 119/73 (88) 98 40 02/14/25 10:00 40 02/14/25 09:48 82 40 02/14/25 09:45 79 27 104/59 (74) 98 40 02/14/25 09:30 78 21 94/52 (66) 95 40 02/14/25 09:15 81 27 111/63 (79) 95 40 02/14/25 09:00 82 27 108/61 (77) 96 40 02/14/25 08:45 79 25 108/63 (78) 100 40 02/14/25 08:30 83 25 112/60 (77) 95 40 02/14/25 08:15 81 24 98/50 (66) 93 40 02/14/25 08:00 85 24 97/55 (69) 92 40 02/14/25 07:45 93 25 116/62 (80) 93 40 02/14/25 07:45 40 02/14/25 07:45 93 Ventilator+ 40 02/14/25 07:30 98 27 124/66 (85) 93 40 02/14/25 07:30 97.7 02/14/25 07:17 40 02/14/25 07:15 102 29 133/70 (91) 97 50 02/14/25 07:00 95 27 129/73 (91) 99 50 02/14/25 06:45 97 25 129/73 (91) 98 02/14/25 06:45 87 31 02/14/25 06:40 86 50 02/14/25 06:30 93 27 120/71 (87) 98 02/14/25 06:15 89 23 129/76 (93) 98 02/14/25 06:00 90 29 129/74 (92) 99 02/14/25 05:45 83 27 127/78 (94) 99 02/14/25 05:30 81 24 123/75 (91) 99 02/14/25 05:15 79 25 114/69 (84) 98 PHYSICAL EXAM: General: acutely ill, sedated, intubated, and mechanically ventilated HEENT: head is atraumatic, pupils equal and reactive, ET tube in place Neck: supple, no masses, no lymphadenopathy, no thyromegaly, no JVD Lungs: decreased breath sounds bilaterally, symmetrical chest movement Cardio: regular rate, S1 and S2 normal, no rub or gallop Abdomen: soft, non tender, no distension, no organomegaly Extremities: trace edema bilateral lower extremities, no cyanosis or clubbing Skin: no rashes or suspicious lesions Neuro: sedated Current Medications Medications (Trade) Dose Ordered Sig/Amada Route Start Time Stop Time Status Last Admin Dose Admin Albuterol (DUOneb) 1 udvial [id number] 01/30/25 22:00 03/01/25 21:59 02/09/25 10:30 1 UDVIAL Cefepime HCl (MAXipime 2 gm vial) 2 gm Q12H IVPB 02/01/25 14:00 02/11/25 13:59 02/09/25 01:56 2 GM Dexmedetomidine/ Sodium Chloride (PRECEdex 400MCG/ 100ML-NS) 400 mcg PROTOCOL IV 02/04/25 23:45 03/06/25 23:44 02/09/25 05:56 400 MCG Doxycycline Hyclate 250 ml @ 125 mls/hr Q12H IV 01/31/25 14:00 02/10/25 13:59 02/09/25 01:56 125 MLS/HR Famotidine (Pepcid 20mg Vial) 20 mg DAILY IV 01/31/25 09:00 03/02/25 08:59 02/09/25 08:28 20 MG Fentanyl Citrate 100 ml @ 2.5 mls/hr PROTOCOL IV 02/05/25 11:30 02/05/25 19:59 DC 02/05/25 17:13 2.5 MLS/HR Fentanyl/Sodium Chloride 250 ml @ 0.1 mls/hr PROTOCOL IV 02/05/25 20:00 02/08/25 15:52 DC 02/07/25 22:11 0.1 MLS/HR Fluconazole/ Sodium Chloride (DiFLUCan 200 MG/ NS 100 ML) 200 mg DAILY22 IV 02/02/25 22:00 03/01/25 17:59 02/08/25 23:07 200 MG Fluconazole/ Sodium Chloride (DiFLUCan 200 MG/ NS 100 ML) 200 mg Q24H IV 01/30/25 18:00 02/02/25 14:38 DC 02/01/25 18:17 200 MG Furosemide (LASix 20MG VIAL) 20 mg Q8H IV 02/06/25 16:00 03/08/25 15:59 02/09/25 08:02 20 MG Furosemide (LASix 40MG VIAL) 20 mg ONCE STAT IV 01/31/25 05:37 01/31/25 05:40 DC 01/31/25 05:45 20 MG Heparin Sodium (Porcine) (HEParin 5,000 UNIT VIAL) 5,000 unit Q12H SQ 01/31/25 09:00 03/02/25 08:59 02/09/25 08:47 5,000 UNIT Insulin Glargine (LANtus 100 UNITS/ML 10 ML VIAL) 20 units BID SQ 02/04/25 21:00 02/06/25 14:49 DC 02/06/25 10:03 20 UNITS Insulin Glargine (LANtus 100 UNITS/ML 10 ML VIAL) 30 units BID SQ 02/06/25 21:00 03/08/25 20:59 02/09/25 08:36 30 UNITS Insulin Human Regular (humuLIN R 100 UNIT/ML 3ML) INSULIN SLIDING SCAL... ACHS SQ 02/07/25 16:30 02/07/25 11:56 DC Insulin Human Regular (humuLIN R 100 UNIT/ML 3ML) INSULIN SLIDING SCAL... Q6H6 SQ 01/31/25 06:00 02/07/25 11:55 DC 02/07/25 06:03 5 UNIT Insulin Human Regular (humuLIN R 100 UNIT/ML 3ML) INSULIN SLIDING SCAL... Q6H6 SQ 02/07/25 12:00 03/09/25 11:59 02/08/25 18:27 4 UNIT Methylprednisolone Sodium Succinate (Solu-medROL 40MG) 40 mg BID IVP 01/30/25 21:00 01/31/25 04:16 DC 01/30/25 21:18 40 MG Methylprednisolone Sodium Succinate (Solu-medROL 40MG) 40 mg BID IVP 02/07/25 21:00 03/09/25 20:59 02/09/25 08:28 40 MG Methylprednisolone Sodium Succinate (Solu-medROL 40MG) 40 mg Q8H IVP 01/31/25 04:30 02/02/25 11:57 DC 02/02/25 11:47 40 MG Methylprednisolone Sodium Succinate (Solu-medROL 40MG) 60 mg Q6H IVP 02/02/25 12:00 02/07/25 15:17 DC 02/07/25 11:27 60 MG Metoclopramide HCl (regLAN 10MG IV) 10 mg Q8H IVP 02/06/25 16:00 03/08/25 15:59 02/09/25 08:02 10 MG Morphine Sulfate (morPHINE 2MG SYG) 2 mg ONCE STAT IVP 01/31/25 05:41 01/31/25 05:45 DC 01/31/25 05:51 2 MG Multi-Ingred Cream/Lotion/Oil/ Oint (Artificial Tears Eye Oint) Apply ointment to both e... Q4H OU 01/31/25 15:00 03/02/25 14:59 02/09/25 06:37 1 APPL Norepinephrine Bitartrate (Norepineph 16 Mg/250ml NS Premix) sbp>90 PROTOCOL IV 02/05/25 11:30 03/07/25 11:29 Pharmacy Profile Note (Pharmacy Communication) 1 each ONCE MISC 02/05/25 11:30 02/05/25 11:23 DC Piperacillin Sod/ Tazobactam Sod (Zosyn 3.375gm+NS 50ml) 3.375 gm Q8H IVPB 01/31/25 09:30 01/31/25 12:56 DC 01/31/25 11:04 3.375 GM Piperacillin Sod/ Tazobactam Sod (Zosyn 3.375gm+NS 50ml) 3.375 gm ZOSY8 IVPB 01/31/25 13:00 02/01/25 13:33 DC 02/01/25 11:54 3.375 GM Polyethylene Glycol (MIRalax 3350 17 GM POWD.PACK) 17 gm DAILY PO 02/07/25 11:30 03/09/25 11:29 02/09/25 08:28 17 GM Sodium Bicarbonate (Sodium Bicarb 50meq 50ml Vial) 50 meq Q8H6 IV 02/06/25 14:00 02/07/25 16:00 DC 02/07/25 14:47 50 MEQ Sodium Chloride 1,000 ml @ 100 mls/hr Q10H IV 01/30/25 20:00 01/31/25 05:38 DC 01/30/25 21:18 100 MLS/HR Sodium Zirconium Cyclosilicate (Lokelma 10gm Powder) 10 gm BID PO 02/09/25 12:00 02/10/25 11:59 02/09/25 12:26 10 GM Trimethoprim/ Sulfamethoxazole 480 mg/Dextrose 500 ml @ 250 mls/hr Q6H IV 01/30/25 21:00 02/01/25 11:57 DC 02/01/25 02:49 250 MLS/HR Trimethoprim/ Sulfamethoxazole 480 mg/Dextrose 500 ml @ 250 mls/hr Q6H IV 02/01/25 12:00 02/11/25 11:59 02/09/25 12:21 250 MLS/HR Trimethoprim/ Sulfamethoxazole / Dextrose 100 ml @ 100 mls/hr AD IV 01/30/25 20:00 02/09/25 19:59 UNV Wound Care/ Dressing Products (Venelex Ointment) BID TP 02/09/25 21:00 03/11/25 20:59 LABORATORY: [ ] Hematology Labs: Test 02/14/25 03:18 02/13/25 04:54 Range/Units White Blood Count 6.6 4.8-10.8 K/uL Red Blood Count 2.82 L 4.50-6.20 MIL/uL Hemoglobin 7.9 L 14.0-18.0 g/dL Hematocrit 23.7 L 42-54 % Mean Corpuscular Volume 84.0 79-99 fL Mean Corpuscular Hemoglobin 28.0 27.0-33.0 pg Mean Corpuscular Hemoglobin Concent 33.3 32.0-36.0 g/dL Red Cell Distribution Width 13.1 11.0-15.5 % Platelet Count 108 L 130-400 K/uL Mean Platelet Volume 9.9 7.5-10.5 fL Nucleated Red Blood Cells 0.3 H 0.0-0.19 % Segmented Neutrophils % 88 H 40-70 % Band Neutrophils % 11 H 0-2 % Lymphocytes % (Manual) 1 L 22-44 % Differential Comment MANUAL DIFFERENTIAL White Cell Morphology Comment SMUDGE CELLS 2+ Platelet Morphology Comment SLIGHTLY DECREASED Red Blood Cell Morphology TEARDROP CELLS 2+ Chemistry Labs: Test 02/14/25 11:45 02/14/25 03:18 02/13/25 12:40 02/13/25 08:40 Range/Units Whole Blood Glucose 89 70-110 MG/DL Sodium Level 128 L 136-145 mmol/L Potassium Level 5.4 H 3.5-5.1 mmol/L Chloride Level 96 L 101-111 mmol/L Carbon Dioxide Level 19 L 21-32 mmol/L Blood Urea Nitrogen 66 H 7-18 mg/dL Creatinine 1.9 H 0.5-1.3 mg/dL Glomerular Filtration Rate Calc 45 >90 mL/min Random Glucose 107 H 70-105 mg/dL Total Calcium 7.7 L 8.5-10.1 mg/dL Phosphorus Level 4.1 2.5-4.9 mg/dL Magnesium Level 2.10 1.80-2.40 mg/dL Total Bilirubin 0.5 0.2-1.0 mg/dL Direct Bilirubin 0.3 0.0-0.3 mg/dL Aspartate Amino Transf (AST/SGOT) 94 H 10-37 U/L Alanine Aminotransferase (ALT/SGPT) 63 12-78 U/L Alkaline Phosphatase 110 50-136 U/L Ammonia 32 11-32 umol/L Total Protein 5.3 L 6.0-8.3 g/dL Albumin 1.5 L 3.5-5.0 g/dL Lactic Acid Level 4.3 H 0.8-2.5 mmol/L Procalcitonin 0.82 H 0.05-0.5 ng/mL DIAGNOSTICS / RADIOLOGY: [place] [address] IMAGING REPORT Signed PATIENT: CHARY HERNANDEZ MR#: [id number] : 1980 SEX: M AGE: 44 LOCATION: [facility] ORDER 37 STATUS: ADM IN REPORT#: [id number] SERVICE 35 REASON: ET Tube Advanced ORDERING PHYSICIAN: BIANCA WICK PAC PROCEDURE: CXR1VW - CHEST 1VW EXAM: CR Chest, 1 View. CLINICAL HISTORY: ET Tube Advanced COMPARISON: 02/13/2025; 5:04 EST FINDINGS: The endotracheal tube with its tip 5.2 cm away from the catina. The right PICC line tip overlying the SVC The nasogastric catheter is seen up to the proximal stomach. LUNGS: Essentially stable appearance of bilateral lung curtis. PLEURAL SPACES: No pleural effusion or pneumothorax. MEDIASTINUM: Cardiac size is stable. BONES: No aggressive appearing osseous lesion seen. IMPRESSION: 1. Endotracheal tube tip 5.2 cm from catina. 2. Right PICC line tip overlying SVC. 3. Nasogastric tube in the proximal stomach. 4. Essentially stable appearance of bilateral lung curtis. /[place] DICTATED BY: LARISSA LEMONS Jr., MD DATE: 02/14/25720 ELECTRONICALLY SIGNED BY: LARISSA LEMONS Jr., MD DATE: 02/14/25720 PATIENT: CHARY HERNANDEZ MR#: [id number] : 1980 SEX: M AGE: 44 LOCATION: [facility] ORDER 99 STATUS: ADM IN REPORT#: [id number] SERVICE 9 REASON: pneumonia ORDERING PHYSICIAN: NETO STARR PROCEDURE: CXR1VW - CHEST 1VW EXAM: CR Chest, 1 View. CLINICAL HISTORY: pneumonia COMPARISON: 02/12/2025 FINDINGS: The right PICC line tip overlying the SVC Endotracheal tube with its tip 3.9 cm short of the catina. The nasogastric catheter is seen up to the proximal stomach. LUNGS: Interval improvement in the bilateral lung aeration, with an interval decrease in the left lower zone infiltrates. PLEURAL SPACES: No evidence of pleural effusion or pneumothorax. MEDIASTINUM: Cardiac size is stable. BONES: No acute osseous abnormality. IMPRESSION: 1. Interval improvement in bilateral lung aeration, with decreased left lower zone infiltrates. 2. Right PICC line tip overlying the SVC, endotracheal tube tip 3.9 cm proximal to the catina, and nasogastric catheter tip in the proximal gastric body. /[place] DICTATED BY: LARISSA LEMONS Jr., MD DATE: 02/13/251717 ELECTRONICALLY SIGNED BY: LARISSA LEMONS Jr., MD DATE: 02/13/251717 PATIENT: CHARY HERNANDEZ MR#: [id number] : 1980 SEX: M AGE: 44 LOCATION: [facility] ORDER 99 STATUS: ADM IN REPORT#: [id number] SERVICE 9 REASON: PNEUMONIA ORDERING PHYSICIAN: NETO STARRCNLeo PROCEDURE: CXR1VW - CHEST 1VW EXAM: CR CHEST, 1 VIEW CLINICAL HISTORY: pneumonia, Endotracheal tube placement. COMPARISON: CR: CHEST 1VW dated 02/11/2025 3:36 [employer] TECHNIQUE: Single frontal radiograph of the chest was obtained. Mild patient's rotation during the image acquisition is present. FINDINGS: Lines/Devices: Right sided PICC line with its tip overlying the proximal superior vena cava. Endotracheal tube with its tip 5 cm short of catina. Nasogastric catheter with its tip overlying the stomach in the region of the proximal gastric body. Lungs: Almost stationary degree of pulmonary parenchymal congestion on left side, being mild. Persistent left lower lobar lung infiltrates, which may represent atelectasis/consolidation. No right sided pleural effusion. Mild left sided pleural effusion causing opacification of the left hemithorax. There is no pneumothorax. Mediastinum and cardiovascular structures: Moderate cardiomegaly. There are calcific atherosclerotic plaques in the aorta. The central airway and mediastinal contours are unremarkable. Bones and soft tissues: Unremarkable. IMPRESSION: In comparison with the previous chest radiograph dated February 11, 2025, the current radiograph demonstrates: 1. Mild left sided pleural effusion causing opacification of the left hemithorax. Persistent left lower lobar lung infiltrates, which may represent atelectasis/consolidation. 2. Stable endotracheal tube, the right sided PICC line and the nasogastric catheter. 3. Stationary degree of pulmonary parenchymal congestion. /[place] DICTATED BY: LEXX GRIGGS MD DATE: 02/13/2551 ELECTRONICALLY SIGNED BY: LEXX GRIGGS MD DATE: 02/13/2551 PATIENT: CHARY HERNANDEZ MR#: [id number] : 1980 SEX: M AGE: 44 LOCATION: [facility] ORDER 99 STATUS: ADM IN REPORT#: [id number] SERVICE 9 REASON: pp ORDERING PHYSICIAN: BIANCA WICK PAC PROCEDURE: CXR1VW - CHEST 1VW EXAM: CR CHEST, 1 VIEW CLINICAL HISTORY: Endotracheal tube placement. COMPARISON: None provided TECHNIQUE: Single frontal radiograph of the chest was obtained. Gross patient's rotation during the image acquisition is present. FINDINGS: Lines/Devices: Right sided PICC line with its tip overlying the proximal superior vena cava. Endotracheal tube with its tip 5.3 cm short of catina. Nasogastric catheter with its tip overlying the stomach in the region of the proximal gastric body. Lungs: Interval reduction in the degree of pulmonary parenchymal congestion with clearing of the infiltrates from the right lung. Persistent left lower lobar lung infiltrates, which may represent atelectasis/consolidation. No right sided pleural effusion. Moderate sized left sided pleural effusion causing opacification of the left hemithorax. There is no pneumothorax. Mediastinum and cardiovascular structures: Moderate cardiomegaly. There are calcific atherosclerotic plaques in the aorta. The central airway and mediastinal contours are unremarkable. Bones and soft tissues: Unremarkable. IMPRESSION: In comparison with the previous chest radiograph dated February 10, 2025, the current radiograph demonstrates: 1. Stable endotracheal tube, the right sided PICC line and the nasogastric catheter. 2. Moderate sized left sided pleural effusion causing opacification of the left hemithorax. Persistent left lower lobar lung infiltrates, which may represent atelectasis/consolidation. 3. Interval reduction in the degree of pulmonary parenchymal congestion with resolution of the infiltrates from the right lung. /[place] DICTATED BY: LEXX GRIGGS MD DATE: 02/12/25432 ELECTRONICALLY SIGNED BY: LEXX GRIGGS MD DATE: 02/12/25432 PATIENT: CHARY HERNANDEZ MR#: [id number] : 1980 SEX: M AGE: 44 LOCATION: [facility] ORDER 99 STATUS: ADM IN REPORT#: [id number] SERVICE 06 REASON: pp ORDERING PHYSICIAN: BIANCA WICK PAC PROCEDURE: CXR1VW - CHEST 1VW EXAM: CR Chest, 1 View. CLINICAL HISTORY: Endotracheal tube. COMPARISON: 02/09/2025 FINDINGS: The endotracheal tube is seen with its tip terminating about 5.6 cm above the catina. The nasogastric tube is seen in the left hemidiaphragm; the tip is not visualized. LUNGS: Mild interval reduction in the aeration of both lungs. PLEURAL SPACES: No definite pleural effusion or pneumothorax. MEDIASTINUM: Cardiac size is stable. BONES: No aggressive appearing osseous lesion seen. IMPRESSION: 1. Endotracheal tube tip 5.6 cm above the catina. 2. Mild interval reduction in the aeration of both lungs. /[place] DICTATED BY: LARISSA LEMONS Jr., MD DATE: 02/10/251510 ELECTRONICALLY SIGNED BY: LARISSA LEMONS Jr., MD DATE: 02/10/251510 PATIENT: CHARY HERNANDEZ MR#: [id number] : 1980 SEX: M AGE: 44 LOCATION: [facility] ORDER 230 STATUS: ADM IN REPORT#: [id number] SERVICE 0600 REASON: Respirateory failure ORDERING PHYSICIAN: NETO STARR PROCEDURE: CXR1VW - CHEST 1VW EXAM: CR Chest, 1 View. CLINICAL HISTORY: Respiratory failure COMPARISON: 02/08/2025 FINDINGS: The endotracheal tube is seen with its tip terminating about 5.4 cm above the catina. The nasogastric tube is seen in the left hemidiaphragm; the tip is not visualized. LUNGS: Essentially stable appearance of bilateral lung curtis, with persistent right basilar and diffuse left lung airspace disease. PLEURAL SPACES: No evidence of pleural effusion or pneumothorax. MEDIASTINUM: The cardiac size is stable. BONES: No aggressive appearing osseous lesion seen. IMPRESSION: 1. Endotracheal tube tip 5.4 cm above catina. 2. Nasogastric tube is demonstrated below the left hemidiaphragm; the tip is not visualized. 3. Essentially stable appearance of bilateral lung curtis, with persistent right basilar and diffuse left lung airspace disease. /[place] DICTATED BY: LARISSA LEMONS Jr., MD DATE: 02/09/251057 ELECTRONICALLY SIGNED BY: LARISSA LEMONS Jr., MD DATE: 02/09/251057 PATIENT: CHARY HERNANDEZ MR#: [id number] : 1980 SEX: M AGE: 44 LOCATION: [facility] ORDER 99 STATUS: ADM IN REPORT#: [id number] SERVICE 9 REASON: pp ORDERING PHYSICIAN: BIANCA WICK PAC PROCEDURE: CXR1VW - CHEST 1VW EXAM: CR Chest, 1 View. CLINICAL HISTORY: Follow up COMPARISON: 02/07/2025 FINDINGS: The endotracheal tube tip is 6.8 cm away from the catina. The nasogastric tube is seen below the left hemidiaphragm; the tip is not visualized. LUNGS: Essentially stable appearance of the bilateral lung curtis with mild bibasilar atelectasis and questionable small bilateral pleural effusions. PLEURAL SPACES: No evidence of pneumothorax. MEDIASTINUM: Cardiac size is stable. Mild stable pulmonary vascular congestion. BONES: No acute osseous abnormality. IMPRESSION: 1. Stable appearance of bilateral lung curtis with mild bibasilar atelectasis and questionable small bilateral pleural effusions. 2. Endotracheal tube tip 6.8 cm from catina. 3. Nasogastric tube below left hemidiaphragm, tip not visualized. /[place] DICTATED BY: LARISSA LEMONS Jr., MD DATE: 02/09/251109 ELECTRONICALLY SIGNED BY: LARISSA LEMONS Jr., MD DATE: 02/09/25 111 PATIENT: CHARY HERNANDEZ MR#: [id number] : 1980 SEX: M AGE: 44 LOCATION: [facility] ORDER 99 STATUS: ADM IN REPORT#: [id number] SERVICE 9 REASON: pp ORDERING PHYSICIAN: BIANCA WICK PAC PROCEDURE: CXR1VW - CHEST 1VW EXAM: CR Chest, 2 View. CLINICAL HISTORY: Intubated. COMPARISON: 02/06/2025 FINDINGS: The endotracheal tube is seen with its tip terminating about 6.7 cm above the catina. The nasogastric tube terminates in the proximal stomach. LUNGS: Interval improvement in basilar predominant bilateral diffuse airspace disease is present. PLEURAL SPACES: No definite pleural effusion or pneumothorax. MEDIASTINUM: Cardiac size is stable. BONES: No aggressive appearing osseous lesion seen. IMPRESSION: 1. Interval improvement in bilateral basilar predominant airspace disease. 2. Endotracheal tube tip positioned 6.7 cm above catina. 3. The nasogastric tube terminates in the proximal stomach. /[place] DICTATED BY: LARISSA LEMONS Jr., MD DATE: 02/07/251748 ELECTRONICALLY SIGNED BY: LARISSA LEMONS Jr., MD DATE: 02/07/251748 PATIENT: CHARY HERNANDEZ MR#: [id number] : 1980 SEX: M AGE: 44 LOCATION: [facility] ORDER 1341 STATUS: ADM IN REPORT#: [id number] SERVICE 1337 REASON: JUAN ORDERING PHYSICIAN: DARBY PORRAS MD PROCEDURE: RENAL - US RENAL SONOGRAM EXAMINATION: ULTRASOUND OF THE RETROPERITONEUM. CLINICAL HISTORY: JUAN. COMPARISON: None. TECHNIQUE: Real-time grayscale ultrasound images of the kidneys. FINDINGS: The kidneys are normal in caliber, the right kidney measures 12.9 x 6.5 x 6.5 cm and the left kidney measures 11.0 x 5.6 x 5.5 cm in its craniocaudal, AP, and transverse dimensions respectively. There is normal renal cortical thickness, and cortical echogenicity. There is no renal calculus or hydronephrosis. The urinary bladder is partially distended with mild wall thickening (0.6 cm). There are no calculi in the urinary bladder. IMPRESSION: Urinary bladder wall thickening of concern for cystitis. [facility] DICTATED BY: LARISSA LEMONS Jr., MD DATE: 02/07/25716 ELECTRONICALLY SIGNED BY: LARISSA LEMONS Jr., MD DATE: 02/07/25716 PATIENT: CHARY HERNANDEZ MR#: [id number] : 1980 SEX: M AGE: 44 LOCATION: [facility] ORDER 1118 STATUS: ADM IN REPORT#: [id number] SERVICE 114 REASON: post intubation ORDERING PHYSICIAN: COMPA PATRICK MD PROCEDURE: CXR1VW - CHEST 1VW EXAM: CR Chest, 2 View. CLINICAL HISTORY: post intubation COMPARISON: Radiograph from February 04, 2025 FINDINGS: Endotracheal tubes in satisfactory position, tip terminating 3.5 cm above the catina. Right PICC terminates overlying the SVC. Bibasilar airspace disease may reflect an infectious process. No pleural effusion or pneumothorax. Heart size is stable. Pulmonary vessels are within normal limits. IMPRESSION: 1. Endotracheal tube and right PICC line in satisfactory positions. 2. Bibasilar airspace disease, possibly infectious. [facility] DICTATED BY: LARISSA LEMONS Jr., MD DATE: 02/05/251408 ELECTRONICALLY SIGNED BY: LARISSA LEMONS Jr., MD DATE: 02/05/251408 PATIENT: CHARY HERNANDEZ MR#: [id number] : 1980 SEX: M AGE: 44 LOCATION: [facility] ORDER 9 STATUS: ADM IN REPORT#: [id number] SERVICE 09 REASON: ngt placement for TF ORDERING PHYSICIAN: ISAC MATHEW MD PROCEDURE: ABD 1VW - ABD 1VW EXAM: CR Abdomen, 1 View. CLINICAL HISTORY: ngt placement for TF COMPARISON: None provided. FINDINGS: BOWEL: The transverse colon is filled with gas and fecal content could be due to constipation Nasogastric tubes projecting below lthe eft hemidiaphragm in the stomach PERITONEUM/SOFT TISSUES: No free air evident. No pathologic appearing calcification. BONES: No acute osseous abnormality. IMPRESSION: The nasogastric tube is projected below the left hemidiaphragm over the stomach, tip is located in the body portion of the stomach Gas and fecal-loaded transverse colon consistent with constipation /[place] DICTATED BY: LARISSA LEMONS Jr., MD DATE: 02/03/251138 ELECTRONICALLY SIGNED BY: LARISSA LEMONS Jr., MD DATE: 02/03/251138 PATIENT: CHARY HERNANDEZ MR#: [id number] : 1980 SEX: M AGE: 44 LOCATION: [facility] ORDER 1 STATUS: ADM IN REPORT#: [id number] SERVICE 5 REASON: hypoxia ORDERING PHYSICIAN: BIANCA GARCIA PROCEDURE: ECHO CMP - ECHO 2-D COMPLETE APPROVED REPORT EXAM: Two-dimensional and M-mode echocardiogram with Doppler and color Doppler. INDICATION ICD: R06.02 Shortness of breath 2D Dimensions RVDd 4.5 cm LVEF(%) 58.7 (>50%) LVED Vol(simp.) 152.0 mL IVSd 1.2 (0.7-1.1cm) FS(%) 32 % LVES Vol(simp.) 70.0 mL LVDd 6.1 (3.8-5.6cm) LA (2D) 4.0 (1.6-4.0cm) LVEF(%, simp.) 54 % PWd 0.8 (0.7-1.1cm) Ao Root(2D) 3.4 (2.0-3.7cm) LA ESV INDEX (BP) 26.38 mL/m2 IVSs 1.5 cm LVOT diam 2.7 (1.8-2.4cm) LVDs 4.1 (2.5-4.0cm) IVC diam 2.7 cm PWs 1.1 cm Deformation Strain Apical 4 -16.1 % Apical 2 -16.4 % Apical 3 -17.4 % Global Strain -16.6 % M-Mode Dimensions EPSS 0.3 cm LA (MM) 4.2 (1.6-4.0cm) Ao Root(MM) 4.0 (2.0-3.7cm) Aortic Valve AoV Vmax 1.4 m/s Ao Peak GR 7.3 mmHg LVOT Vmax 1.2 m/s AoV VTI 0.3 m Ao Mean GR 4.7 mmHg LVOT VTI 0.23 m MINH (VMAX) 5.28 cm2 MINH (VTI) 5.3 cm2 Mitral Valve MV E Vmax 88.4 cm/s DECEL Time 146 ms MV A Vmax 76.4 cm/s P 1/2 T 41 ms E/A ratio 1.2 MVA (PHT) 5.4 cm2 TDI E/E' Medial 10.2 E/E' Lateral 10.5 Medial E' Peak V 8.64 cm/s Lateral E' Peak V 8.43 cm/s Pulmonary Valve PV Vmax 0.8 m/s PV Peak GR 2.3 mmHg Tricuspid Valve TR Vmax 1.1 m/s RAP (EST) 8 mmHg RVSP 12.9 mmHg TR Peak GR 4.9 mmHg Left Ventricle The left ventricle is normal size. GLS -16.0% There is normal LV segmental wall motion. There is mild left ventricular wall thickness. LVEF is 55%. The LV diastolic function was unable to be assessed due to atrial arrhythmia. Right Ventricle The right ventricle is normal size. The right ventricular systolic function is normal. Atria The left atrium size is normal. The right atrium size is normal. Aortic Valve The aortic valve is normal in structure. No aortic regurgitation is present. There is no aortic valvular stenosis. Mitral Valve The mitral valve is normal in structure. There is trace of mitral valve regurgitation noted. There is no mitral valve stenosis. Tricuspid Valve The tricuspid valve is normal in structure. There is no tricuspid valve regurgitation noted. Pulmonic Valve The pulmonary valve is normal in structure. There is mild pulmonic valvular regurgitation. Great Vessels The aortic root is normal in size. IVC is dilated and collapses >50% with inspiration. Pericardium There is no pericardial effusion. Other Information Quality : Technically diffcult study due to body habitus Conclusion LVEF is 55%. DICTATED BY: CAROL GALLAGHER MD DATE: 01/31/25844 ELECTRONICALLY SIGNED BY: CAROL GALLAGHER MD DATE: 01/31/252052 PATIENT: CHARY HERNANDEZ MR#: [id number] : 1980 SEX: M AGE: 44 LOCATION: 2CH ORDER STATUS: ADM IN OF [facility] REPORT#: [id number] SERVICE REASON: r/o DVT ORDERING PHYSICIAN: BIANCA GARCIA PROCEDURE: VENOUS GRACIE - US VENOUS DOPPLER BILATERAL EXAM: US for Deep Venous Thrombosis, bilateral Lower Extremity. CLINICAL HISTORY: Rule out deep venous thrombosis. TECHNIQUE: Real-time ultrasound scan of the veins of the bilateral lower extremity with color Doppler flow, spectral waveform analysis and compression. COMPARISON: None provided. FINDINGS: DEEP VEINS: The common femoral, superficial femoral, and popliteal veins are echolucent and compressible. There is normal color Doppler flow throughout. The visualized calf veins appear patent. SOFT TISSUES: No popliteal fossa cyst or other abnormalities. IMPRESSION: No deep venous thrombosis is evident on bilateral lower extremity examination. /[place] DICTATED BY: LARISSA LEMONS Jr., MD DATE: 01/31/25400 ELECTRONICALLY SIGNED BY: LARISSA LEMONS Jr., MD DATE: 01/31/25400 PATIENT: CHARY HERNANDEZ MR#: [id number] : 1980 SEX: M AGE: 44 LOCATION: 2CH ORDER STATUS: ADM IN REPORT#: [id number] SERVICE REASON: r/o P.E. ORDERING PHYSICIAN: BIANCA GARCIA PROCEDURE: CHES PE - CT CHEST PE PROTOCOL WWO CONT EXAMINATION: CT Chest, with intravenous contrast CLINICAL HISTORY: Patient presents to rule out pulmonary embolism. TECHNIQUE: Axial computed tomography images of the chest, with intravenous contrast. Multiplanar reformations were generated and reviewed. CONTRAST: With intravenous contrast. COMPARISON: None provided. FINDINGS: CHEST: LUNGS: The lungs demonstrate extensive diffuse consolidation and airspace opacities and ground-glassing throughout the bilateral lungs, predominantly involving the lower lobes and perihilar regions. No pulmonary mass. PLEURAL SPACES: No pneumothorax or pleural effusion. CARDIOVASCULAR: Cardiomegaly is present. No significant pericardial effusion. The main pulmonary artery measures 3.2 cm. The right pulmonary artery measures 2 cm. The left pulmonary artery measures 2.2 cm. The pulmonary arteries show no evidence of filling defects. Normal caliber thoracic aorta. MEDIASTINUM AND SILVINO: No mediastinal or hilar lymphadenopathy. ABDOMEN : Hepatosplenomegaly BONES: No acute or aggressive osseous abnormality. IMPRESSION: No acute pulmonary embolism. Extensive diffuse bilateral pulmonary airspace opacities, predominantly in the lower lobes and perihilar regions, consistent with pulmonary edema. Cardiomegaly with mild pulmonary arterial hypertension. Hepatosplenomegaly. /[place] DICTATED BY: LARISSA LEMONS Jr., MD DATE: 01/31/25803 ELECTRONICALLY SIGNED BY: LARISSA LEMONS Jr., MD DATE: 01/31/25803 ASSESSMENT: Hyperkalemia Acute renal failure Acute hypoxemic and hypercarbic respiratory failure now with worsening respiratory distress ARDS Community-acquired pneumonia suspected Pneumocystis Toxic metabolic encephalopathy on admission Acute sepsis on admission without septic shock secondary to community-acquired pneumonia HIV positive newly diagnosed stage IV. Not on anti-retroviral medication CD4 count: 19 Immunocompromise status Suspected TB Obstructive sleep apnea, untreated/undiagnosed Morbid obesity, BMI 33.6 Volume overload PLAN: Labs, diagnostic, radiologic exams reviewed and interpreted by myself and supervising physician. We have reviewed external records in detail Continue with close monitoring of electrolytes and renal function Order CBC, CMP, and electrolytes in am Continue with antibiotics as per ID Continue mechanical ventilation and sedation IV pressors as needed Monitor blood pressure adjust medication doses as needed May use Dilaudid 0.5 mg IV every 6 hours as needed for severe pain Monitor blood sugars Strict intake, output, and daily weight should be monitored Please renally adjust medications Avoid nephrotoxic and nonsteroidal drugs Avoid contrast if possible Will continue to monitor renal function, anemia, electrolytes Treatment plan discussed with patient Questions were answered We have discussed with the other team physicians in detail about the care plan We will continue to monitor the patient closely Total critical care time spent with patient, nursing staff, critical care team over 35 minutes ATTESTATION BY PHYSICIAN I have seen and examined the patient. I reviewed the documentation, medical decision making, and treatment plan as noted by the mid-level provider above. I agree with the findings and plan of care. DARBY PORRAS MD, [facility] Feb 14, 2025 13:14
--- NOTE | 2025-02-14 13:15 | ERN ---
Tele-Neurology Note Tele-Neurology Note [place] EEG Note # Demographics Type of EEG Read: - Routine EEG - without video Patient Location: Inpatient First Name: CHARY JACKSON Last Name: MARY Date of : 1980 Age: 44 Gender: Male Facility: [facility] Time of Initial Page (Central Time): 02/14/2025 10:17 First Contact with Site (Central Time): 02/14/2025 10:18 # EEG Interpretation Start Time of EEG Read (Central Time): 02/14/2025 09:04 Stop Time of EEG Read (Central Time): 02/14/2025 09:29 Duration: 0h 25m Technical Details: - The EEG electrodes were placed using the standard International 10-20 system of electrode placement. An accessory EKG lead was used during the course of this study. - This study was recorded using the [employer] EEG software Indication: - altered mental status # Description Photic Stimulation: Performed Phases Captured: - unresponsive Symmetry: symmetric Posterior Dominant Rhythm: absent Predominant Frequencies: There is an excess of generalized theta slowing of the background intermixed with delta activity. Amplitude: low Continuity: continuous EKG: NSR # Abnormalities Stimulation: - photic stimulation does NOT cause abnormalities Epileptiform Abnormalities: - NOT present Focal Slowing: no Seizure: - NOT present # Impression Impression: abnormal 1. Mild to moderate diffuse slowing # Clinical Correlation Clinical Correlation: 1. Diffuse slowing is non-specific and may be seen in the setting of diffuse cerebral dysfunction; such as toxic/metabolic/infectious encephalopathy or heavily sedating medication use. # Logistics Telemedicine: remote EEG review: EEG reviewed remotely # Demographics First Name: CHARY JACKSON Last Name: MARY Facility: [facility] Electronically signed at 02/14/2025 13:10 (Central Time) by MD SANNA Pennington JAMAL F MD Feb 14, 2025 13:15
[2025-02-14] MEDS ORDERED: IOHEXOL-350 75 ML VIAL IV ONE (14:53)
--- NOTE | 2025-02-14 16:10 | CONS ---
CONSULTATION NOTE Date of Service: Feb 14, 2025 Reason for Consultation: [ Deep tissue injury to right heel and ulcer to sacrum] Requesting Physician: [Dr. Gould ] HISTORY OF PRESENT ILLNESS: Patient evaluated at bedside in room 217 for wound care evaluation of right heel and sacral wound. The patient is a 44-year-old male with no pertinent medical history and no pertinent surgical history who was brought by EMS to the ED for complaints of shortness of breaths for the past two weeks prior to admission. The patient is HIV positive newly diagnosed. He has been in the hospital for several days, He continues to be intubated and sedated. He continues on antibiotics as per ID. REVIEW OF SYSTEMS Unable to complete patient is intubated PAST MEDICAL HISTORY: Newly diagnosed HIV PAST SURGICAL HISTORY: None PAST SOCIAL HISTORY: Denies use of alcohol, tobacco or illicit drugs FAMILY HISTORY: Noncontributory Coded Allergies: No Known Drug Allergies (Unverified Allergy, Unknown, 01/30/25) PHYSICAL EXAM EYES: Anicteric. Pupils equal and reactive. HENT: No oral thrush seen, moist Oral mucosa NECK: Supple, no JVD or thyromegaly. LUNGS: Patient is intubated, rhonchi. CARDIOVASCULAR: S1, S2 regular. No murmur heard. ABDOMEN: Soft, non tender, bowel sounds present, no organomegaly CENTRAL NERVOUS SYSTEM: Patient is intubated SKIN: Dark discoloration noted to right heel, stage 3 ulcer noted to sacrum with granulation and discoloration to periwound. LYMPHATICS: No peripheral lymphadenopathy MUSCULOSKELETAL: No joint swelling, erythema or tenderness. EXTREMITIES: No cyanosis or clubbing BACK: No deformity GENITOURINARY: No dysuria or hematuria Vital Sign (Last 24 Hours) 02/14/25 02/14/25 15:56 16:00 Temp 98.1 Pulse 82 Resp 28 B/P (MAP) 109/61 (77) Pulse Ox 96 FiO2 40 Intake & Output (last 24hrs) 02/13/25 02/13/25 02/14/25 15:00 23:00 07:00 Intake Total 1564.3 ml 1777.6 ml 1262.9 ml Output Total 1400 ml 200 ml 1500 ml Balance 164.3 ml 1577.6 ml -237.1 ml LABS: Laboratory: Test 02/14/25 11:45 02/14/25 03:47 02/14/25 03:18 02/13/25 12:40 Range/Units Whole Blood Glucose 89 70-110 MG/DL Blood Gas Specimen Type Arterial Arterial Blood pH 7.340 L 7.350-7.450 Arterial Blood Partial Pressure CO2 32 L 35-48 mmHg Arterial Blood Partial Pressure O2 114.2 H 83.0-108.0 mmHg Arterial Blood HCO3 16.8 L 21.0-28.0 mmol/L Arterial Blood Oxygen Saturation 98.0 94.0-98.0 % Arterial Blood Base Excess -7.7 L -2.0-3.0 mmol/L Blood Gas Temperature 37.0 35.5-37.0 CELSIUS Blood Gas Respiration Rate 12.0 min. Blood Gas Vent Mode AC VC ROOM AIR FiO2 50.0 % Blood Gas Tidal Volume 500 ml Blood Gas PEEP 5 cm H2O Blood Gas Specimen Comment CELI RN, LB White Blood Count 6.6 4.8-10.8 K/uL Red Blood Count 2.82 L 4.50-6.20 MIL/uL Hemoglobin 7.9 L 14.0-18.0 g/dL Hematocrit 23.7 L 42-54 % Mean Corpuscular Volume 84.0 79-99 fL Mean Corpuscular Hemoglobin 28.0 27.0-33.0 pg Mean Corpuscular Hemoglobin Concent 33.3 32.0-36.0 g/dL Red Cell Distribution Width 13.1 11.0-15.5 % Platelet Count 108 L 130-400 K/uL Mean Platelet Volume 9.9 7.5-10.5 fL Nucleated Red Blood Cells 0.3 H 0.0-0.19 % Sodium Level 128 L 136-145 mmol/L Potassium Level 5.4 H 3.5-5.1 mmol/L Chloride Level 96 L 101-111 mmol/L Carbon Dioxide Level 19 L 21-32 mmol/L Blood Urea Nitrogen 66 H 7-18 mg/dL Creatinine 1.9 H 0.5-1.3 mg/dL Glomerular Filtration Rate Calc 45 >90 mL/min Random Glucose 107 H 70-105 mg/dL Total Calcium 7.7 L 8.5-10.1 mg/dL Phosphorus Level 4.1 2.5-4.9 mg/dL Magnesium Level 2.10 1.80-2.40 mg/dL Total Bilirubin 0.5 0.2-1.0 mg/dL Direct Bilirubin 0.3 0.0-0.3 mg/dL Aspartate Amino Transf (AST/SGOT) 94 H 10-37 U/L Alanine Aminotransferase (ALT/SGPT) 63 12-78 U/L Alkaline Phosphatase 110 50-136 U/L Ammonia 32 11-32 umol/L Total Protein 5.3 L 6.0-8.3 g/dL Albumin 1.5 L 3.5-5.0 g/dL Lactic Acid Level 4.3 H 0.8-2.5 mmol/L Test 02/13/25 08:40 02/13/25 07:17 02/13/25 04:54 Range/Units Procalcitonin 0.82 H 0.05-0.5 ng/mL Hemoglobin (Blood Gas) < 5.0 #*L 13.5-17.5 g/dL Sodium (Blood Gas) 125 L 136-145 MMOL/L Bedside Potassium (Blood Gas) 5.3 H 3.4-4.5 MMOL/L Bedside Chloride (Blood Gas) 101 98-107 MMOL/L Bedside Glucose (Blood Gas) 97 H 65-95 MG/DL Bedside Ionized Calcium (Blood Gas) 0.94 L 1.15-1.33 MMOL/L Bedside Lactic Acid (Blood Gas) 4.61 *H 0.36-0.75 MMOL/L Segmented Neutrophils % 88 H 40-70 % Band Neutrophils % 11 H 0-2 % Lymphocytes % (Manual) 1 L 22-44 % Differential Comment MANUAL DIFFERENTIAL White Cell Morphology Comment SMUDGE CELLS 2+ Platelet Morphology Comment SLIGHTLY DECREASED Red Blood Cell Morphology TEARDROP CELLS 2+ DIAGNOSTICS / RADIOLOGY: [ ] PROBLEM LIST : Medical Problems: (1) ARDS (adult respiratory distress syndrome) ICD Codes: J80 - Acute respiratory distress syndrome (2) SIRS (systemic inflammatory response syndrome) ICD Codes: R65.10 - Systemic inflammatory response syndrome (SIRS) of non- infectious origin without acute organ dysfunction Pressure ulcer to sacral region, stage 3 Deep tissue injury to right heel PLAN: Wound care to sacrum: apply Venelex BID and PRN Wound care to right heel : paint with Betadine daily, leave open to air, apply waffle boots. Waffle mattress Keep wounds clean and dry Offloading/reposition q 2 hours Continue IV antibiotics per ID Comorbidities per primary care team Further Management per hospital course. Thank You for the consult and allowing us to participate in the care of this patient. ATTESTATION BY PHYSICIAN I have seen and examined the patient. I reviewed the documentation, medical decision making, and treatment plan as noted by the mid-level provider above. I agree with the findings and plan of care. TRACI CAMARILLO MD, [facility] Feb 14, 2025 16:10 TRACI CAMARILLO MD Feb 17, 2025 13:16
--- NOTE | 2025-02-14 20:33 | PN ---
INFECTIOUS DISEASE PROGRESS NOTE Date of Service: Feb 14, 2025 SUBJECTIVE: This is a 44-year-old male patient who was seen at bedside in room 217. During rounding today around 1100 am patient was on CPAP trials and was awake and aware of his surroundings. The final blood culture results 1 of 2 sets came back positive for Staphylococcus epidermidis which is possible a contaminant. We will repeat blood cultures in a.m and continue on cefepime, Bactrim, doxycycline and fluconazole. Continues on Truvada and Raltegravir. We will continue to follow patient's care. PHYSICAL EXAM EYES: Anicteric. Pupils equal and reactive. HENT: Oral thrush. NGT. NECK: Supple, no JVD or thyromegaly. LUNGS: On mechanical ventilatory support. CARDIOVASCULAR: S1, S2 regular. No murmur heard. ABDOMEN: Soft, non tender, bowel sounds present, no organomegaly. CENTRAL NERVOUS SYSTEM: Awake but Intubated. SKIN: Rash on abdomen and lower extremities now dried. LYMPHATICS: No peripheral lymphadenopathy MUSCULOSKELETAL: No joint swelling, erythema or tenderness. EXTREMITIES: No cyanosis or clubbing. Weakness. BACK: No deformity, no pressure ulcer. GENITOURINARY: No dysuria or hematuria. Dias catheter. Vital Sign (Last 12 Hours) 02/14/25 02/14/25 02/14/25 02/14/25 08:45 09:00 09:15 09:30 Pulse 79 82 81 78 Resp 21 B/P (MAP) 108/63 (78) 108/61 (77) 111/63 (79) 94/52 (66) Pulse Ox 100 96 95 95 FiO2 40 40 40 40 02/14/25 02/14/25 02/14/25 02/14/25 09:45 09:48 10:00 10:00 Pulse 79 82 85 Resp 27 29 B/P (MAP) 104/59 (74) 119/73 (88) Pulse Ox 98 98 FiO2 40 40 40 40 02/14/25 02/14/25 02/14/25 02/14/25 10:15 10:30 10:45 11:00 Pulse 89 92 97 97 Resp 26 B/P (MAP) 124/76 (92) 136/81 (99) 140/87 (104) 139/80 (99) Pulse Ox 98 98 97 96 FiO2 40 40 40 40 02/14/25 02/14/25 02/14/25 02/14/25 11:12 11:15 11:30 11:41 Pulse 98 97 106 109 Resp B/P (MAP) 138/77 (97) 140/72 (94) Pulse Ox 97 97 FiO2 40 40 40 02/14/25 02/14/25 02/14/25 02/14/25 11:45 11:48 12:00 12:15 Temp 97.9 Pulse 106 107 106 Resp B/P (MAP) 137/73 (94) 142/78 (99) 139/75 (96) Pulse Ox 94 93 93 FiO2 40 40 40 02/14/25 02/14/25 02/14/25 02/14/25 12:30 12:30 12:30 12:45 Pulse 105 104 Resp B/P (MAP) 131/74 (93) 132/71 (91) Pulse Ox 93 93 92 O2 Delivery CPAP+ FiO2 40 40 40 40 02/14/25 02/14/25 02/14/25 02/14/25 13:00 13:15 13:30 13:45 Pulse 102 101 102 100 Resp 24 B/P (MAP) 125/74 (91) 129/75 (93) 131/77 (95) 134/77 (96) Pulse Ox 92 91 93 93 FiO2 40 40 40 40 02/14/25 02/14/25 02/14/25 02/14/25 14:00 14:15 14:30 14:45 Pulse 103 101 99 103 Resp B/P (MAP) 125/78 (94) 128/77 (94) 123/71 (88) 132/67 (88) Pulse Ox 93 94 94 93 FiO2 40 40 40 40 02/14/25 02/14/25 02/14/25 02/14/25 14:56 15:00 15:15 15:30 Pulse 101 91 85 82 Resp B/P (MAP) 118/67 (84) 100/54 (69) 88/48 (61) Pulse Ox 94 93 93 FiO2 40 40 40 40 02/14/25 02/14/25 02/14/25 02/14/25 15:32 15:45 15:56 16:00 Temp 98.1 Pulse 81 82 82 Resp 27 27 28 B/P (MAP) 99/56 (70) 92/46 (61) 109/61 (77) Pulse Ox 95 94 96 FiO2 40 40 40 02/14/25 02/14/25 02/14/25 02/14/25 16:15 16:30 16:30 16:30 Pulse 86 80 B/P (MAP) 119/76 (90) 124/75 (91) Pulse Ox 100 99 99 O2 Delivery Ventilator+ FiO2 40 40 40 40 02/14/25 02/14/25 02/14/25 02/14/25 16:45 17:00 17:15 17:30 Pulse 83 86 87 89 Resp B/P (MAP) 118/71 (87) 118/71 (87) 119/71 (87) 122/71 (88) Pulse Ox 99 95 96 96 FiO2 40 40 40 40 02/14/25 02/14/25 02/14/25 02/14/25 17:45 18:00 18:15 18:30 Pulse 93 89 90 86 Resp B/P (MAP) 126/72 (90) 118/69 (85) 123/72 (89) 109/61 (77) Pulse Ox 96 95 95 95 FiO2 40 40 40 40 02/14/25 02/14/25 02/14/25 18:45 18:48 18:50 Pulse 86 86 86 B/P (MAP) 104/60 (75) Pulse Ox 94 FiO2 40 40 Intake & Output (last 24hrs) 02/13/25 02/13/25 02/14/25 15:00 23:00 07:00 Intake Total 1564.3 ml 1777.6 ml 1262.9 ml Output Total 1400 ml 200 ml 1500 ml Balance 164.3 ml 1577.6 ml -237.1 ml LABS: Laboratory: Test 02/14/25 18:18 02/14/25 03:47 02/14/25 03:18 02/13/25 12:40 Range/Units Whole Blood Glucose 86 70-110 MG/DL Blood Gas Specimen Type Arterial Arterial Blood pH 7.340 L 7.350-7.450 Arterial Blood Partial Pressure CO2 32 L 35-48 mmHg Arterial Blood Partial Pressure O2 114.2 H 83.0-108.0 mmHg Arterial Blood HCO3 16.8 L 21.0-28.0 mmol/L Arterial Blood Oxygen Saturation 98.0 94.0-98.0 % Arterial Blood Base Excess -7.7 L -2.0-3.0 mmol/L Blood Gas Temperature 37.0 35.5-37.0 CELSIUS Blood Gas Respiration Rate 12.0 min. Blood Gas Vent Mode AC VC ROOM AIR FiO2 50.0 % Blood Gas Tidal Volume 500 ml Blood Gas PEEP 5 cm H2O Blood Gas Specimen Comment CELI RN, LB White Blood Count 6.6 4.8-10.8 K/uL Red Blood Count 2.82 L 4.50-6.20 MIL/uL Hemoglobin 7.9 L 14.0-18.0 g/dL Hematocrit 23.7 L 42-54 % Mean Corpuscular Volume 84.0 79-99 fL Mean Corpuscular Hemoglobin 28.0 27.0-33.0 pg Mean Corpuscular Hemoglobin Concent 33.3 32.0-36.0 g/dL Red Cell Distribution Width 13.1 11.0-15.5 % Platelet Count 108 L 130-400 K/uL Mean Platelet Volume 9.9 7.5-10.5 fL Nucleated Red Blood Cells 0.3 H 0.0-0.19 % Sodium Level 128 L 136-145 mmol/L Potassium Level 5.4 H 3.5-5.1 mmol/L Chloride Level 96 L 101-111 mmol/L Carbon Dioxide Level 19 L 21-32 mmol/L Blood Urea Nitrogen 66 H 7-18 mg/dL Creatinine 1.9 H 0.5-1.3 mg/dL Glomerular Filtration Rate Calc 45 >90 mL/min Random Glucose 107 H 70-105 mg/dL Total Calcium 7.7 L 8.5-10.1 mg/dL Phosphorus Level 4.1 2.5-4.9 mg/dL Magnesium Level 2.10 1.80-2.40 mg/dL Total Bilirubin 0.5 0.2-1.0 mg/dL Direct Bilirubin 0.3 0.0-0.3 mg/dL Aspartate Amino Transf (AST/SGOT) 94 H 10-37 U/L Alanine Aminotransferase (ALT/SGPT) 63 12-78 U/L Alkaline Phosphatase 110 50-136 U/L Ammonia 32 11-32 umol/L Total Protein 5.3 L 6.0-8.3 g/dL Albumin 1.5 L 3.5-5.0 g/dL Lactic Acid Level 4.3 H 0.8-2.5 mmol/L Test 02/13/25 08:40 02/13/25 07:17 02/13/25 04:54 Range/Units Procalcitonin 0.82 H 0.05-0.5 ng/mL Hemoglobin (Blood Gas) < 5.0 #*L 13.5-17.5 g/dL Sodium (Blood Gas) 125 L 136-145 MMOL/L Bedside Potassium (Blood Gas) 5.3 H 3.4-4.5 MMOL/L Bedside Chloride (Blood Gas) 101 98-107 MMOL/L Bedside Glucose (Blood Gas) 97 H 65-95 MG/DL Bedside Ionized Calcium (Blood Gas) 0.94 L 1.15-1.33 MMOL/L Bedside Lactic Acid (Blood Gas) 4.61 *H 0.36-0.75 MMOL/L Segmented Neutrophils % 88 H 40-70 % Band Neutrophils % 11 H 0-2 % Lymphocytes % (Manual) 1 L 22-44 % Differential Comment MANUAL DIFFERENTIAL White Cell Morphology Comment SMUDGE CELLS 2+ Platelet Morphology Comment SLIGHTLY DECREASED Red Blood Cell Morphology TEARDROP CELLS 2+ DIAGNOSIS/RADIOLOGY: PATIENT: CHARY HERNANDEZ ACCT: [id number] LOC: [facility] U: [id number] AGE/SX: 44/M ROOM: [facility] RE01/30/[address]: LAURA DAVIS MD : 1980 BED: 1 DIS: STATUS: ADM IN TLOC: SPEC: [id number] TYLER: 02/10/25 STATUS: COMP REQ: [id number] RECD: 02/11/25-[address]: BIANCA WICK PAC SOURCE: BLOOD ENTR: 02/11/25-[address]02 [facility] [address]: MIRZA CORNELIUS MD SPDESC: BLOOD SUSAN,LAURA PORRAS,DARBY BOYD,SHUBHAM LEE,PRAVEENA Bailey MD ORDERED: AERO ID & SENS Procedure Result Jenaro Date-Time AEROBIC ID & SENSITIVITIES Final 02/14/25-[address] [facility] COLONY DESCRIPTION: DAY 1: GRAM POSITIVE COCCI IN CLUSTERS COAGULASE NEGATIVE STAPHYLOCOCCUS AEROBIC BOTTLE IDENTIFICATION AND SENSITIVITY TO FOLLOW STAPHYLOCOCCUS EPIDERMIDIS STA EPIDER M.I.C. RX --------- ---- CLINDAMYCIN 0.5 R* ERYTHROMYCIN >4 R GENTAMICIN <=4 S VANCOMYCIN 1 S OXACILLIN VICKI >2 R RIFAMPIN <=1 S TETRACYCLINE <=4 S TRIMETHOPRIM/SUFLAMETHOXAZOLE >2/38 R ASSESSMENT: Staphylococcus epidermidis bacteremia, possible a contaminant. Acute hypoxic and hypercapnic respiratory failure, s/p intubation. Multifocal pneumonia. Suspected advanced stage HIV, not on anti-retroviral therapy, POA. Suspected Pneumocystis pneumonia, ruled out. Sepsis. Acute renal failure. Oral candidiasis. Morbid obesity. PLAN: Repeat blood culture in a.m.. Continue Bactrim IV. Continue fluconazole IV. Continue doxycycline IV. Continue cefepime. Continue on Truvada and Raltegravir. Continue GI prophylaxis. Continues on mechanical ventilatory support. Continue critical care support. We will follow up on the repeat blood culture results. This case was reviewed and discussed with my supervising physician Dr. Cornelius and the above assessment and plan was formulated and agreed upon. ATTESTATION BY PHYSICIAN I have seen and examined the patient. I reviewed the documentation, medical decision making, and treatment plan as noted by the mid-level provider above. I agree with the findings and plan of care. MIRZA CORNELIUS MD, [facility]TA [facility] Feb 14, 2025 20:33
[2025-02-14] MEDS: ENOXAPARIN SODIUM 30 MG/0.3 ML SQ SCH (20:44)
[2025-02-15] VITALS (103 sets, daily range): BP systolic 92–152; BP diastolic 34–78; PULSE 84–129; RESP 18–104; TEMP 98.1–99.2; O2SAT 93–99
--- NOTE | 2025-02-15 04:54 | NUR ---
While preforming oral care, noted front upper tooth that is loose. RN is aware.
[2025-02-15 05:10] LABS: NUCLEATED RED BLOOD CELLS 0.2 % (0.0-0.19); PLATELET COUNT (AUTO) 109.0 K/uL (130-400); RED BLOOD CELL COUNT(AUTO) 2.8 MIL/uL (4.50-6.20); RED CELL DISTRIBUTION WIDTH 13.3 % (11.0-15.5); WHITE BLOOD COUNT (AUTO) 8.5 K/uL (4.8-10.8)
[2025-02-15 06:25] LABS: ASPARTATE AMINOTRANSFERASE 104.0 U/L (10-37); CREATININE 1.9 mg/dL (0.5-1.3); GLOMERULAR FILTR. RATE CALC 45.0 mL/min (>90); GLUCOSE,RANDOM 61.0 mg/dL (70-105); SODIUM SERUM 130.0 mmol/L (136-145); TOTAL PROTEIN, SERUM 5.3 g/dL (6.0-8.3); UREA NITROGEN, BLOOD 61.0 mg/dL (7-18)
[2025-02-15 09:20] LABS: ABG BASE EXCESS -11.7 mmol/L (-2.0-3.0); ABG HCO3 13.4 mmol/L (21.0-28.0); ABG OXYGEN SATURATION 89.2 % (94.0-98.0); ABG PCO2 29 mmHg (35-48); ABG PH 7.284 (7.350-7.450); DEVICE COMMENT LR; PO2, ARTERIAL BG 61.4 mmHg (83.0-108.0); TEMPERATURE, CELSIUS BG 37.0 CELSIUS (35.5-37.0)
[2025-02-15] MEDS: SODIUM BICARB 50MEQ 50ML VIAL IV ONE (09:49)
--- NOTE | 2025-02-15 10:22 | PN ---
[facility] PROGRESS NOTE Date Patient Seen: Feb 15, 2025 Time of Visit: 10:22 Supervising Physician: Dr. Brush Primary Care Physician: [Avi LESTER] Outpatient Specialists: [ ] Inpatient Consults: [Dr. Sigala-MARION, [facility]-ICU] PROBLEM LIST: Acute hypoxemic and hypercarbic respiratory failure ARDS Community-acquired pneumonia suspected Pneumocystis Toxic metabolic encephalopathy on admission Acute sepsis on admission without septic shock secondary to community-acquired pneumonia HIV positive newly diagnosed stage IV. Not on anti-retroviral medication CD4 count: 19 Immunocompromise status Obstructive sleep apnea, untreated/undiagnosed Morbid obesity, BMI 33.6 JUAN Volume overload INTERVAL HISTORY: Patient is seen at bedside today with family present, currently remains on ventilator, currently increased to 70% FiO2. Patient is less responsive today, lactic acid trending up to 6.9. Patient's white count is 8.5, hemoglobin 7.7, creatinine trending down at 1.9 today. Patient with worsening acidosis, two ampules bicarb administered. She continues on Precedex. Plans for extubation will be postponed, discussion with family at bedside including my attending with explanation regarding the expectations with the patient to remain intubated until such time as he appears to be ready for extubation. Brief conversation held with family regarding advance directives, POA at bedside we will discuss with parents. We will continue with the current treatment plan and ventilator settings as indicated. Plan: Monitor acidosis Postpone extubation Conversation with family regarding advance directives Trend lactic acid Pending CT of the head Continue CPAP Follow Blood and sputum cultures Continue on Cefepime, Doxy, Bactrim, and fluconazole per ID. Follow nephrology recommendations, avoid and nephrotoxic medications. Total critical care time spent 40 minutes, this excludes any procedures performed or any time spent in educational or teaching. REVIEW OF SYSTEMS: Patient on Precedex drip, unable to obtain information from patient. PHYSICAL EXAM: Obese GENERAL: on Vent assistance, responding to self HEENT: EOMI, Sclera non icteric, moist mucosa NECK: Supple, no JVD, trachea midline LUNGS: Fine crackles bilaterally. HEART: Regular rate and rhythm. Normal S1 and S2, without murmurs ABD: Abdomen soft, nontender. Bowel sounds present, obese EXT: No clubbing cyanosis or edema : Dias in situ NEURO: sedated Vital Signs (last 8hr) Date Time Temp Pulse Resp B/P (MAP) Pulse Ox O2 Delivery O2 Flow Rate FiO2 02/15/25 09:07 117 70 02/15/25 07:45 98.1 02/15/25 07:30 96 Ventilator+ 60 02/15/25 07:30 122 24 138/74 (95) 96 60 02/15/25 07:30 60 02/15/25 07:24 60 02/15/25 07:15 124 26 150/75 (100) 95 50 02/15/25 07:00 125 29 152/72 (98) 95 50 02/15/25 06:40 114 28 02/15/25 06:30 101 50 02/15/25 06:00 103 28 137/72 (93) 97 02/15/25 05:45 104 30 140/65 (90) 97 02/15/25 05:30 97 26 136/78 (97) 97 02/15/25 05:15 92 26 126/67 (86) 97 02/15/25 05:00 91 26 126/66 (86) 97 02/15/25 04:46 88 50 02/15/25 04:45 90 25 124/65 (84) 97 02/15/25 04:30 89 27 122/69 (86) 97 02/15/25 04:15 88 22 117/68 (84) 97 02/15/25 04:00 99 Ventilator+ 40 02/15/25 04:00 50 02/15/25 04:00 85 27 107/55 (72) 97 02/15/25 04:00 99.1 02/15/25 03:30 87 29 105/42 (63) 97 02/15/25 03:00 84 22 102/50 (67) 94 02/15/25 02:45 87 22 100/50 (67) 96 02/15/25 02:30 91 27 107/52 (70) 95 LABS: Hematology Labs: Test 02/15/25 04:42 Range/Units White Blood Count 8.5 4.8-10.8 K/uL Red Blood Count 2.80 L 4.50-6.20 MIL/uL Hemoglobin 7.7 L 14.0-18.0 g/dL Hematocrit 24.0 L 42-54 % Mean Corpuscular Volume 85.7 79-99 fL Mean Corpuscular Hemoglobin 27.5 27.0-33.0 pg Mean Corpuscular Hemoglobin Concent 32.1 32.0-36.0 g/dL Red Cell Distribution Width 13.3 11.0-15.5 % Platelet Count 109 L 130-400 K/uL Mean Platelet Volume 10.1 7.5-10.5 fL Nucleated Red Blood Cells 0.2 H 0.0-0.19 % Chemistry Labs: Test 02/15/25 08:55 02/15/25 05:43 02/15/25 04:42 02/14/25 03:18 Range/Units Lactic Acid Level 6.9 H 0.8-2.5 mmol/L Whole Blood Glucose 102 70-110 MG/DL Sodium Level 130 L 136-145 mmol/L Potassium Level 4.8 3.5-5.1 mmol/L Chloride Level 99 L 101-111 mmol/L Carbon Dioxide Level 16 L 21-32 mmol/L Blood Urea Nitrogen 61 H 7-18 mg/dL Creatinine 1.9 H 0.5-1.3 mg/dL Glomerular Filtration Rate Calc 45 >90 mL/min Random Glucose 61 L 70-105 mg/dL Total Calcium 7.7 L 8.5-10.1 mg/dL Total Bilirubin 0.5 0.2-1.0 mg/dL Aspartate Amino Transf (AST/SGOT) 104 H 10-37 U/L Alanine Aminotransferase (ALT/SGPT) 82 H 12-78 U/L Alkaline Phosphatase 108 50-136 U/L Total Protein 5.3 L 6.0-8.3 g/dL Albumin 1.6 L 3.5-5.0 g/dL Phosphorus Level 4.1 2.5-4.9 mg/dL Magnesium Level 2.10 1.80-2.40 mg/dL Direct Bilirubin 0.3 0.0-0.3 mg/dL Ammonia 32 11-32 umol/L DIAGNOSTICS / RADIOLOGY RESULTS: [ ] NEURO: Minimize central acting medications as possible. Fall Precautions. Well lighted room through the day and minimize interruptions through the night to prevent acute delirium. PULMONARY: Supplemental 02 as needed Titrate Fio2 to keep Spo2 > or = 90% DuoNebs and CPT as needed IS hourly while awake for pulmonary hygiene Out of bed to chair as tolerated VAP Bundle Vent/BIPAP Settings: [ BIPAP setting 12/11 rate of 18 FiO2 60%. ] CARDIOVASCULAR: Follow hemodynamics. Titrate vasopressor to keep MAP >65 or systolic blood pressure >95mmHg DRIPS: [Precedex ] LINES: [PIV] GI & NUTRITION: Continue nutritional support Aspirations precautions Prokinetic agents and laxatives as needed KIDNEYS & ELECTROLYTES: Strict monitoring of intake and output Daily weights Avoid nephrotoxic agents Monitor electrolytes and replace as needed Dias care-prevent CAUTI per nursing Goal urine output of 30mL/hr or 0.5mL/kg/hr Urine output: [ ] Fluid Balance: [ ] ENDOCRINE: Maintain blood glucose between 100-180 at all times. Insulin sliding scale for blood glucose management INFECTIOUS DISEASE: Trend temperature. Lara-culture if febrile. Micro: [ ] Antibiotics: [Vancomycin 01/30- IV Fluconazole: 01/30- IV Sulfa/TMP: 01/30-] HEMATOLOGY & COAGULATION: Monitor H&H. Keep Hgb > 7 Transfuse 1 unit of PRBC for Hgb < 7 Transfuse 1 pack of platelets of platelets < 20, 000 Watch for any signs and symptoms of bleeding SKIN: Pressure ulcer prevention per facility protocol Rehab: PT/OT Prophylaxis: GI: [Pepcid] DVT: [Heparin ] Code Status: Full Resuscitation Disposition: [ICU ] RANDALL LAURA PAC Feb 15, 2025 10:22
--- NOTE | 2025-02-15 10:33 | PN ---
NEPHROLOGY PROGRESS NOTE Date/Time Patient Seen: Feb 15, 2025 SUBJECTIVE: This is a 44-year-old male with HIV positive newly diagnosed He was brought by EMS to the ED for complaints of shortness of breaths for the past two weeks. He has been in the hospital for several days He continues on antibiotics, including Bactrim, as per ID. He was noted to have elevated BUN/creatinine We are consulted for renal failure Renal function is improving Electrolytes are stable He was seen in the ICU, Nurse reports fevers Continues to be intubated and sedated Family at the bedside Prognosis remains guarded REVIEW OF SYSTEMS: Difficult to obtain given status of the patient who remains intubated mechanically ventilated Vital Signs (last 8hr) Date Time Temp Pulse Resp B/P (MAP) Pulse Ox O2 Delivery O2 Flow Rate FiO2 02/15/25 09:07 117 70 02/15/25 07:45 98.1 02/15/25 07:30 96 Ventilator+ 60 02/15/25 07:30 122 24 138/74 (95) 96 60 02/15/25 07:30 60 02/15/25 07:24 60 02/15/25 07:15 124 26 150/75 (100) 95 50 02/15/25 07:00 125 29 152/72 (98) 95 50 02/15/25 06:40 114 28 02/15/25 06:30 101 50 02/15/25 06:00 103 28 137/72 (93) 97 02/15/25 05:45 104 30 140/65 (90) 97 02/15/25 05:30 97 26 136/78 (97) 97 02/15/25 05:15 92 26 126/67 (86) 97 02/15/25 05:00 91 26 126/66 (86) 97 02/15/25 04:46 88 50 02/15/25 04:45 90 25 124/65 (84) 97 02/15/25 04:30 89 27 122/69 (86) 97 02/15/25 04:15 88 22 117/68 (84) 97 02/15/25 04:00 99 Ventilator+ 40 02/15/25 04:00 50 02/15/25 04:00 85 27 107/55 (72) 97 02/15/25 04:00 99.1 02/15/25 03:30 87 29 105/42 (63) 97 02/15/25 03:00 84 22 102/50 (67) 94 02/15/25 02:45 87 22 100/50 (67) 96 PHYSICAL EXAM: General: acutely ill, sedated, intubated, and mechanically ventilated HEENT: head is atraumatic, pupils equal and reactive, ET tube in place Neck: supple, no masses, no lymphadenopathy, no thyromegaly, no JVD Lungs: decreased breath sounds bilaterally, symmetrical chest movement Cardio: regular rate, S1 and S2 normal, no rub or gallop Abdomen: soft, non tender, no distension, no organomegaly Extremities: trace edema bilateral lower extremities, no cyanosis or clubbing Skin: no rashes or suspicious lesions Neuro: sedated Current Medications Medications (Trade) Dose Ordered Sig/Amada Route Start Time Stop Time Status Last Admin Dose Admin Albuterol (DUOneb) 1 udvial [id number] IH 01/30/25 22:00 03/01/25 21:59 02/09/25 10:30 1 UDVIAL Cefepime HCl (MAXipime 2 gm vial) 2 gm Q12H IVPB 02/01/25 14:00 02/11/25 13:59 02/09/25 01:56 2 GM Dexmedetomidine/ Sodium Chloride (PRECEdex 400MCG/ 100ML-NS) 400 mcg PROTOCOL IV 02/04/25 23:45 03/06/25 23:44 02/09/25 05:56 400 MCG Doxycycline Hyclate 250 ml @ 125 mls/hr Q12H IV 01/31/25 14:00 02/10/25 13:59 02/09/25 01:56 125 MLS/HR Famotidine (Pepcid 20mg Vial) 20 mg DAILY IV 01/31/25 09:00 03/02/25 08:59 02/09/25 08:28 20 MG Fentanyl Citrate 100 ml @ 2.5 mls/hr PROTOCOL IV 02/05/25 11:30 02/05/25 19:59 DC 02/05/25 17:13 2.5 MLS/HR Fentanyl/Sodium Chloride 250 ml @ 0.1 mls/hr PROTOCOL IV 02/05/25 20:00 02/08/25 15:52 DC 02/07/25 22:11 0.1 MLS/HR Fluconazole/ Sodium Chloride (DiFLUCan 200 MG/ NS 100 ML) 200 mg DAILY22 IV 02/02/25 22:00 03/01/25 17:59 02/08/25 23:07 200 MG Fluconazole/ Sodium Chloride (DiFLUCan 200 MG/ NS 100 ML) 200 mg Q24H IV 01/30/25 18:00 02/02/25 14:38 DC 02/01/25 18:17 200 MG Furosemide (LASix 20MG VIAL) 20 mg Q8H IV 02/06/25 16:00 03/08/25 15:59 02/09/25 08:02 20 MG Furosemide (LASix 40MG VIAL) 20 mg ONCE STAT IV 01/31/25 05:37 01/31/25 05:40 DC 01/31/25 05:45 20 MG Heparin Sodium (Porcine) (HEParin 5,000 UNIT VIAL) 5,000 unit Q12H SQ 01/31/25 09:00 03/02/25 08:59 02/09/25 08:47 5,000 UNIT Insulin Glargine (LANtus 100 UNITS/ML 10 ML VIAL) 20 units BID SQ 02/04/25 21:00 02/06/25 14:49 DC 02/06/25 10:03 20 UNITS Insulin Glargine (LANtus 100 UNITS/ML 10 ML VIAL) 30 units BID SQ 02/06/25 21:00 03/08/25 20:59 02/09/25 08:36 30 UNITS Insulin Human Regular (humuLIN R 100 UNIT/ML 3ML) INSULIN SLIDING SCAL... ACHS SQ 02/07/25 16:30 02/07/25 11:56 DC Insulin Human Regular (humuLIN R 100 UNIT/ML 3ML) INSULIN SLIDING SCAL... Q6H6 SQ 01/31/25 06:00 02/07/25 11:55 DC 02/07/25 06:03 5 UNIT Insulin Human Regular (humuLIN R 100 UNIT/ML 3ML) INSULIN SLIDING SCAL... Q6H6 SQ 02/07/25 12:00 03/09/25 11:59 02/08/25 18:27 4 UNIT Methylprednisolone Sodium Succinate (Solu-medROL 40MG) 40 mg BID IVP 01/30/25 21:00 01/31/25 04:16 DC 01/30/25 21:18 40 MG Methylprednisolone Sodium Succinate (Solu-medROL 40MG) 40 mg BID IVP 02/07/25 21:00 03/09/25 20:59 02/09/25 08:28 40 MG Methylprednisolone Sodium Succinate (Solu-medROL 40MG) 40 mg Q8H IVP 01/31/25 04:30 02/02/25 11:57 DC 02/02/25 11:47 40 MG Methylprednisolone Sodium Succinate (Solu-medROL 40MG) 60 mg Q6H IVP 02/02/25 12:00 02/07/25 15:17 DC 02/07/25 11:27 60 MG Metoclopramide HCl (regLAN 10MG IV) 10 mg Q8H IVP 02/06/25 16:00 03/08/25 15:59 02/09/25 08:02 10 MG Morphine Sulfate (morPHINE 2MG SYG) 2 mg ONCE STAT IVP 01/31/25 05:41 01/31/25 05:45 DC 01/31/25 05:51 2 MG Multi-Ingred Cream/Lotion/Oil/ Oint (Artificial Tears Eye Oint) Apply ointment to both e... Q4H OU 01/31/25 15:00 03/02/25 14:59 02/09/25 06:37 1 APPL Norepinephrine Bitartrate (Norepineph 16 Mg/250ml NS Premix) sbp>90 PROTOCOL IV 02/05/25 11:30 03/07/25 11:29 Pharmacy Profile Note (Pharmacy Communication) 1 each ONCE MISC 02/05/25 11:30 02/05/25 11:23 DC Piperacillin Sod/ Tazobactam Sod (Zosyn 3.375gm+NS 50ml) 3.375 gm Q8H IVPB 01/31/25 09:30 01/31/25 12:56 DC 01/31/25 11:04 3.375 GM Piperacillin Sod/ Tazobactam Sod (Zosyn 3.375gm+NS 50ml) 3.375 gm ZOSY8 IVPB 01/31/25 13:00 02/01/25 13:33 DC 02/01/25 11:54 3.375 GM Polyethylene Glycol (MIRalax 3350 17 GM POWD.PACK) 17 gm DAILY PO 02/07/25 11:30 03/09/25 11:29 02/09/25 08:28 17 GM Sodium Bicarbonate (Sodium Bicarb 50meq 50ml Vial) 50 meq Q8H6 IV 02/06/25 14:00 02/07/25 16:00 DC 02/07/25 14:47 50 MEQ Sodium Chloride 1,000 ml @ 100 mls/hr Q10H IV 01/30/25 20:00 01/31/25 05:38 DC 01/30/25 21:18 100 MLS/HR Sodium Zirconium Cyclosilicate (Lokelma 10gm Powder) 10 gm BID PO 02/09/25 12:00 02/10/25 11:59 02/09/25 12:26 10 GM Trimethoprim/ Sulfamethoxazole 480 mg/Dextrose 500 ml @ 250 mls/hr Q6H IV 01/30/25 21:00 02/01/25 11:57 DC 02/01/25 02:49 250 MLS/HR Trimethoprim/ Sulfamethoxazole 480 mg/Dextrose 500 ml @ 250 mls/hr Q6H IV 02/01/25 12:00 02/11/25 11:59 02/09/25 12:21 250 MLS/HR Trimethoprim/ Sulfamethoxazole / Dextrose 100 ml @ 100 mls/hr AD IV 01/30/25 20:00 02/09/25 19:59 UNV Wound Care/ Dressing Products (Venelex Ointment) BID TP 02/09/25 21:00 03/11/25 20:59 LABORATORY: [ ] Hematology Labs: Test 02/15/25 04:42 Range/Units White Blood Count 8.5 4.8-10.8 K/uL Red Blood Count 2.80 L 4.50-6.20 MIL/uL Hemoglobin 7.7 L 14.0-18.0 g/dL Hematocrit 24.0 L 42-54 % Mean Corpuscular Volume 85.7 79-99 fL Mean Corpuscular Hemoglobin 27.5 27.0-33.0 pg Mean Corpuscular Hemoglobin Concent 32.1 32.0-36.0 g/dL Red Cell Distribution Width 13.3 11.0-15.5 % Platelet Count 109 L 130-400 K/uL Mean Platelet Volume 10.1 7.5-10.5 fL Nucleated Red Blood Cells 0.2 H 0.0-0.19 % Chemistry Labs: Test 02/15/25 08:55 02/15/25 05:43 02/15/25 04:42 02/14/25 03:18 Range/Units Lactic Acid Level 6.9 H 0.8-2.5 mmol/L Whole Blood Glucose 102 70-110 MG/DL Sodium Level 130 L 136-145 mmol/L Potassium Level 4.8 3.5-5.1 mmol/L Chloride Level 99 L 101-111 mmol/L Carbon Dioxide Level 16 L 21-32 mmol/L Blood Urea Nitrogen 61 H 7-18 mg/dL Creatinine 1.9 H 0.5-1.3 mg/dL Glomerular Filtration Rate Calc 45 >90 mL/min Random Glucose 61 L 70-105 mg/dL Total Calcium 7.7 L 8.5-10.1 mg/dL Total Bilirubin 0.5 0.2-1.0 mg/dL Aspartate Amino Transf (AST/SGOT) 104 H 10-37 U/L Alanine Aminotransferase (ALT/SGPT) 82 H 12-78 U/L Alkaline Phosphatase 108 50-136 U/L Total Protein 5.3 L 6.0-8.3 g/dL Albumin 1.6 L 3.5-5.0 g/dL Phosphorus Level 4.1 2.5-4.9 mg/dL Magnesium Level 2.10 1.80-2.40 mg/dL Direct Bilirubin 0.3 0.0-0.3 mg/dL Ammonia 32 11-32 umol/L DIAGNOSTICS / RADIOLOGY: [address] [address] IMAGING REPORT Signed PATIENT: CHARY HERNANDEZ MR#: [id number] : 1980 SEX: M AGE: 44 LOCATION: [facility] ORDER 37 STATUS: ADM IN REPORT#: [id number] SERVICE 35 REASON: ET Tube Advanced ORDERING PHYSICIAN: BIANCA WICK PAC PROCEDURE: CXR1VW - CHEST 1VW EXAM: CR Chest, 1 View. CLINICAL HISTORY: ET Tube Advanced COMPARISON: 02/13/2025; 5:04 EST FINDINGS: The endotracheal tube with its tip 5.2 cm away from the catina. The right PICC line tip overlying the SVC The nasogastric catheter is seen up to the proximal stomach. LUNGS: Essentially stable appearance of bilateral lung curtis. PLEURAL SPACES: No pleural effusion or pneumothorax. MEDIASTINUM: Cardiac size is stable. BONES: No aggressive appearing osseous lesion seen. IMPRESSION: 1. Endotracheal tube tip 5.2 cm from catina. 2. Right PICC line tip overlying SVC. 3. Nasogastric tube in the proximal stomach. 4. Essentially stable appearance of bilateral lung curtis. /Hope DICTATED BY: LARISSA LEMONS Jr., MD DATE: 02/14/25720 ELECTRONICALLY SIGNED BY: LARISSA LEMONS Jr., MD DATE: 02/14/25720 PATIENT: CHARY HERNANDEZ MR#: [id number] : 1980 SEX: M AGE: 44 LOCATION: [facility] ORDER 99 STATUS: ADM IN REPORT#: [id number] SERVICE 06 REASON: pneumonia ORDERING PHYSICIAN: NETO STARR PROCEDURE: CXR1VW - CHEST 1VW EXAM: CR Chest, 1 View. CLINICAL HISTORY: pneumonia COMPARISON: 02/12/2025 FINDINGS: The right PICC line tip overlying the SVC Endotracheal tube with its tip 3.9 cm short of the catina. The nasogastric catheter is seen up to the proximal stomach. LUNGS: Interval improvement in the bilateral lung aeration, with an interval decrease in the left lower zone infiltrates. PLEURAL SPACES: No evidence of pleural effusion or pneumothorax. MEDIASTINUM: Cardiac size is stable. BONES: No acute osseous abnormality. IMPRESSION: 1. Interval improvement in bilateral lung aeration, with decreased left lower zone infiltrates. 2. Right PICC line tip overlying the SVC, endotracheal tube tip 3.9 cm proximal to the catina, and nasogastric catheter tip in the proximal gastric body. /Hope DICTATED BY: LARISSA LEMONS Jr., MD DATE: 02/13/251717 ELECTRONICALLY SIGNED BY: LARISSA LEMONS Jr., MD DATE: 02/13/251717 PATIENT: CHARY HERNANDEZ MR#: [id number] : 1980 SEX: M AGE: 44 LOCATION: [facility] ORDER 2300 STATUS: ADM IN REPORT#: [id number] SERVICE 0600 REASON: PNEUMONIA ORDERING PHYSICIAN: NETO STARR PROCEDURE: CXR1VW - CHEST 1VW EXAM: CR CHEST, 1 VIEW CLINICAL HISTORY: pneumonia, Endotracheal tube placement. COMPARISON: CR: CHEST 1VW dated 02/11/2025 3:36 BINDING NICKER TECHNIQUE: Single frontal radiograph of the chest was obtained. Mild patient's rotation during the image acquisition is present. FINDINGS: Lines/Devices: Right sided PICC line with its tip overlying the proximal superior vena cava. Endotracheal tube with its tip 5 cm short of catina. Nasogastric catheter with its tip overlying the stomach in the region of the proximal gastric body. Lungs: Almost stationary degree of pulmonary parenchymal congestion on left side, being mild. Persistent left lower lobar lung infiltrates, which may represent atelectasis/consolidation. No right sided pleural effusion. Mild left sided pleural effusion causing opacification of the left hemithorax. There is no pneumothorax. Mediastinum and cardiovascular structures: Moderate cardiomegaly. There are calcific atherosclerotic plaques in the aorta. The central airway and mediastinal contours are unremarkable. Bones and soft tissues: Unremarkable. IMPRESSION: In comparison with the previous chest radiograph dated February 11, 2025, the current radiograph demonstrates: 1. Mild left sided pleural effusion causing opacification of the left hemithorax. Persistent left lower lobar lung infiltrates, which may represent atelectasis/consolidation. 2. Stable endotracheal tube, the right sided PICC line and the nasogastric catheter. 3. Stationary degree of pulmonary parenchymal congestion. /Hope DICTATED BY: LEXX GRIGGS MD DATE: 02/13/2551 ELECTRONICALLY SIGNED BY: LEXX GRIGGS MD DATE: 02/13/2551 PATIENT: CHARY HERNANDEZ MR#: [id number] : 1980 SEX: M AGE: 44 LOCATION: [facility] ORDER 99 STATUS: ADM IN REPORT#: [id number] SERVICE 0600 REASON: pp ORDERING PHYSICIAN: BIANCA WICK PAC PROCEDURE: CXR1VW - CHEST 1VW EXAM: CR CHEST, 1 VIEW CLINICAL HISTORY: Endotracheal tube placement. COMPARISON: None provided TECHNIQUE: Single frontal radiograph of the chest was obtained. Gross patient's rotation during the image acquisition is present. FINDINGS: Lines/Devices: Right sided PICC line with its tip overlying the proximal superior vena cava. Endotracheal tube with its tip 5.3 cm short of catina. Nasogastric catheter with its tip overlying the stomach in the region of the proximal gastric body. Lungs: Interval reduction in the degree of pulmonary parenchymal congestion with clearing of the infiltrates from the right lung. Persistent left lower lobar lung infiltrates, which may represent atelectasis/consolidation. No right sided pleural effusion. Moderate sized left sided pleural effusion causing opacification of the left hemithorax. There is no pneumothorax. Mediastinum and cardiovascular structures: Moderate cardiomegaly. There are calcific atherosclerotic plaques in the aorta. The central airway and mediastinal contours are unremarkable. Bones and soft tissues: Unremarkable. IMPRESSION: In comparison with the previous chest radiograph dated February 10, 2025, the current radiograph demonstrates: 1. Stable endotracheal tube, the right sided PICC line and the nasogastric catheter. 2. Moderate sized left sided pleural effusion causing opacification of the left hemithorax. Persistent left lower lobar lung infiltrates, which may represent atelectasis/consolidation. 3. Interval reduction in the degree of pulmonary parenchymal congestion with resolution of the infiltrates from the right lung. /Hope DICTATED BY: LEXX GRIGGS MD DATE: 02/12/25432 ELECTRONICALLY SIGNED BY: LEXX GRIGGS MD DATE: 02/12/25432 PATIENT: CHARY HERNANDEZ MR#: [id number] : 1980 SEX: M AGE: 44 LOCATION: [facility] ORDER 99 STATUS: ADM IN REPORT#: [id number] SERVICE 9 REASON: pp ORDERING PHYSICIAN: BIANCA WICK PROCEDURE: CXR1VW - CHEST 1VW EXAM: CR Chest, 1 View. CLINICAL HISTORY: Endotracheal tube. COMPARISON: 02/09/2025 FINDINGS: The endotracheal tube is seen with its tip terminating about 5.6 cm above the catina. The nasogastric tube is seen in the left hemidiaphragm; the tip is not visualized. LUNGS: Mild interval reduction in the aeration of both lungs. PLEURAL SPACES: No definite pleural effusion or pneumothorax. MEDIASTINUM: Cardiac size is stable. BONES: No aggressive appearing osseous lesion seen. IMPRESSION: 1. Endotracheal tube tip 5.6 cm above the catina. 2. Mild interval reduction in the aeration of both lungs. /Hope DICTATED BY: LARISSA LEMONS Jr., MD DATE: 02/10/251510 ELECTRONICALLY SIGNED BY: LARISSA LEMONS Jr., MD DATE: 02/10/251510 PATIENT: CHARY HERNANDEZ MR#: [id number] : 1980 SEX: M AGE: 44 LOCATION: [facility] ORDER 99 STATUS: ADM IN REPORT#: [id number] SERVICE 9 REASON: Respirateory failure ORDERING PHYSICIAN: NETO STARRCNP PROCEDURE: CXR1VW - CHEST 1VW EXAM: CR Chest, 1 View. CLINICAL HISTORY: Respiratory failure COMPARISON: 02/08/2025 FINDINGS: The endotracheal tube is seen with its tip terminating about 5.4 cm above the catina. The nasogastric tube is seen in the left hemidiaphragm; the tip is not visualized. LUNGS: Essentially stable appearance of bilateral lung curtis, with persistent right basilar and diffuse left lung airspace disease. PLEURAL SPACES: No evidence of pleural effusion or pneumothorax. MEDIASTINUM: The cardiac size is stable. BONES: No aggressive appearing osseous lesion seen. IMPRESSION: 1. Endotracheal tube tip 5.4 cm above catina. 2. Nasogastric tube is demonstrated below the left hemidiaphragm; the tip is not visualized. 3. Essentially stable appearance of bilateral lung curtis, with persistent right basilar and diffuse left lung airspace disease. /[place] DICTATED BY: LARISSA LEMONS Jr., MD DATE: 02/09/25 1058 ELECTRONICALLY SIGNED BY: LARISSA LEMONS Jr., MD DATE: 02/09/25 105 PATIENT: CHARY HERNANDEZ MR#: [id number] : 1980 SEX: M AGE: 44 LOCATION: [facility] ORDER 2300 STATUS: ADM IN REPORT#: [id number] SERVICE 0600 REASON: pp ORDERING PHYSICIAN: BIANCA WICK PAC PROCEDURE: CXR1VW - CHEST 1VW EXAM: CR Chest, 1 View. CLINICAL HISTORY: Follow up COMPARISON: 02/07/2025 FINDINGS: The endotracheal tube tip is 6.8 cm away from the catina. The nasogastric tube is seen below the left hemidiaphragm; the tip is not visualized. LUNGS: Essentially stable appearance of the bilateral lung curtis with mild bibasilar atelectasis and questionable small bilateral pleural effusions. PLEURAL SPACES: No evidence of pneumothorax. MEDIASTINUM: Cardiac size is stable. Mild stable pulmonary vascular congestion. BONES: No acute osseous abnormality. IMPRESSION: 1. Stable appearance of bilateral lung curtis with mild bibasilar atelectasis and questionable small bilateral pleural effusions. 2. Endotracheal tube tip 6.8 cm from catina. 3. Nasogastric tube below left hemidiaphragm, tip not visualized. /[place] DICTATED BY: LARISSA LEMONS Jr., MD DATE: 02/09/25 1110 ELECTRONICALLY SIGNED BY: LARISSA LEMONS Jr., MD DATE: 02/09/25 1110 PATIENT: CHARY HERNANDEZ MR#: [id number] : 1980 SEX: M AGE: 44 LOCATION: [facility] ORDER 2300 STATUS: ADM IN REPORT#: [id number] SERVICE 0600 REASON: pp ORDERING PHYSICIAN: BIANCA WICK PAC PROCEDURE: CXR1VW - CHEST 1VW EXAM: CR Chest, 2 View. CLINICAL HISTORY: Intubated. COMPARISON: 02/06/2025 FINDINGS: The endotracheal tube is seen with its tip terminating about 6.7 cm above the catina. The nasogastric tube terminates in the proximal stomach. LUNGS: Interval improvement in basilar predominant bilateral diffuse airspace disease is present. PLEURAL SPACES: No definite pleural effusion or pneumothorax. MEDIASTINUM: Cardiac size is stable. BONES: No aggressive appearing osseous lesion seen. IMPRESSION: 1. Interval improvement in bilateral basilar predominant airspace disease. 2. Endotracheal tube tip positioned 6.7 cm above catina. 3. The nasogastric tube terminates in the proximal stomach. /Hope DICTATED BY: LARISSA LEMONS Jr., MD DATE: 02/07/251748 ELECTRONICALLY SIGNED BY: LARISSA LEMONS Jr., MD DATE: 02/07/251748 PATIENT: CHARY HERNANDEZ MR#: [id number] : 1980 SEX: M AGE: 44 LOCATION: [facility] ORDER 1341 STATUS: ADM IN REPORT#: [id number] SERVICE 1337 REASON: JUAN ORDERING PHYSICIAN: DARBY PORRAS MD PROCEDURE: RENAL - US RENAL SONOGRAM EXAMINATION: ULTRASOUND OF THE RETROPERITONEUM. CLINICAL HISTORY: JUAN. COMPARISON: None. TECHNIQUE: Real-time grayscale ultrasound images of the kidneys. FINDINGS: The kidneys are normal in caliber, the right kidney measures 12.9 x 6.5 x 6.5 cm and the left kidney measures 11.0 x 5.6 x 5.5 cm in its craniocaudal, AP, and transverse dimensions respectively. There is normal renal cortical thickness, and cortical echogenicity. There is no renal calculus or hydronephrosis. The urinary bladder is partially distended with mild wall thickening (0.6 cm). There are no calculi in the urinary bladder. IMPRESSION: Urinary bladder wall thickening of concern for cystitis. /[place] DICTATED BY: LARISSA LEMONS Jr., MD DATE: 02/07/25716 ELECTRONICALLY SIGNED BY: LARISSA LEMONS Jr., MD DATE: 02/07/25716 PATIENT: CHARY HERNANDEZ MR#: [id number] : 1980 SEX: M AGE: 44 LOCATION: [facility] ORDER 1118 STATUS: ADM IN REPORT#: [id number] SERVICE 1145 REASON: post intubation ORDERING PHYSICIAN: COMPA PATRICK MD PROCEDURE: CXR1VW - CHEST 1VW EXAM: CR Chest, 2 View. CLINICAL HISTORY: post intubation COMPARISON: Radiograph from February 04, 2025 FINDINGS: Endotracheal tubes in satisfactory position, tip terminating 3.5 cm above the catina. Right PICC terminates overlying the SVC. Bibasilar airspace disease may reflect an infectious process. No pleural effusion or pneumothorax. Heart size is stable. Pulmonary vessels are within normal limits. IMPRESSION: 1. Endotracheal tube and right PICC line in satisfactory positions. 2. Bibasilar airspace disease, possibly infectious. /[place] DICTATED BY: LARISSA LEMONS Jr., MD DATE: 02/05/251408 ELECTRONICALLY SIGNED BY: LARISSA LEMONS Jr., MD DATE: 02/05/251408 PATIENT: CHARY HERNANDEZ MR#: [id number] : 1980 SEX: M AGE: 44 LOCATION: [facility] ORDER STATUS: ADM IN REPORT#: [id number] SERVICE 8 REASON: ngt placement for TF ORDERING PHYSICIAN: ISAC MATHEW MD PROCEDURE: ABD 1VW - ABD 1VW EXAM: CR Abdomen, 1 View. CLINICAL HISTORY: ngt placement for TF COMPARISON: None provided. FINDINGS: BOWEL: The transverse colon is filled with gas and fecal content could be due to constipation Nasogastric tubes projecting below lthe eft hemidiaphragm in the stomach PERITONEUM/SOFT TISSUES: No free air evident. No pathologic appearing calcification. BONES: No acute osseous abnormality. IMPRESSION: The nasogastric tube is projected below the left hemidiaphragm over the stomach, tip is located in the body portion of the stomach Gas and fecal-loaded transverse colon consistent with constipation /Hope DICTATED BY: LARISSA LEMONS Jr., MD DATE: 02/03/251138 ELECTRONICALLY SIGNED BY: LARISSA LEMONS Jr., MD DATE: 02/03/251138 PATIENT: CHARY HERNANDEZ MR#: [id number] : 1980 SEX: M AGE: 44 LOCATION: [facility] ORDER 0432 STATUS: ADM IN REPORT#: [id number] SERVICE 042 REASON: hypoxia ORDERING PHYSICIAN: BIANCA GARCIA PROCEDURE: ECHO CMP - ECHO 2-D COMPLETE APPROVED REPORT EXAM: Two-dimensional and M-mode echocardiogram with Doppler and color Doppler. INDICATION ICD: R06.02 Shortness of breath 2D Dimensions RVDd 4.5 cm LVEF(%) 58.7 (>50%) LVED Vol(simp.) 152.0 mL IVSd 1.2 (0.7-1.1cm) FS(%) 32 % LVES Vol(simp.) 70.0 mL LVDd 6.1 (3.8-5.6cm) LA (2D) 4.0 (1.6-4.0cm) LVEF(%, simp.) 54 % PWd 0.8 (0.7-1.1cm) Ao Root(2D) 3.4 (2.0-3.7cm) LA ESV INDEX (BP) 26.38 mL/m2 IVSs 1.5 cm LVOT diam 2.7 (1.8-2.4cm) LVDs 4.1 (2.5-4.0cm) IVC diam 2.7 cm PWs 1.1 cm Deformation Strain Apical 4 -16.1 % Apical 2 -16.4 % Apical 3 -17.4 % Global Strain -16.6 % M-Mode Dimensions EPSS 0.3 cm LA (MM) 4.2 (1.6-4.0cm) Ao Root(MM) 4.0 (2.0-3.7cm) Aortic Valve AoV Vmax 1.4 m/s Ao Peak GR 7.3 mmHg LVOT Vmax 1.2 m/s AoV VTI 0.3 m Ao Mean GR 4.7 mmHg LVOT VTI 0.23 m MINH (VMAX) 5.28 cm2 MINH (VTI) 5.3 cm2 Mitral Valve MV E Vmax 88.4 cm/s DECEL Time 146 ms MV A Vmax 76.4 cm/s P 1/2 T 41 ms E/A ratio 1.2 MVA (PHT) 5.4 cm2 TDI E/E' Medial 10.2 E/E' Lateral 10.5 Medial E' Peak V 8.64 cm/s Lateral E' Peak V 8.43 cm/s Pulmonary Valve PV Vmax 0.8 m/s PV Peak GR 2.3 mmHg Tricuspid Valve TR Vmax 1.1 m/s RAP (EST) 8 mmHg RVSP 12.9 mmHg TR Peak GR 4.9 mmHg Left Ventricle The left ventricle is normal size. GLS -16.0% There is normal LV segmental wall motion. There is mild left ventricular wall thickness. LVEF is 55%. The LV diastolic function was unable to be assessed due to atrial arrhythmia. Right Ventricle The right ventricle is normal size. The right ventricular systolic function is normal. Atria The left atrium size is normal. The right atrium size is normal. Aortic Valve The aortic valve is normal in structure. No aortic regurgitation is present. There is no aortic valvular stenosis. Mitral Valve The mitral valve is normal in structure. There is trace of mitral valve regu rgitation noted. There is no mitral valve stenosis. Tricuspid Valve The tricuspid valve is normal in structure. There is no tricuspid valve regurgitation noted. Pulmonic Valve The pulmonary valve is normal in structure. There is mild pulmonic valvular re gurgitation. Great Vessels The aortic root is normal in size. IVC is dilated and collapses >50% with inspiration. Pericardium There is no pericardial effusion. Other Information Quality : Technically diffcult study due to body habitus Conclusion LVEF is 55%. DICTATED BY: CAROL GALLAGHER MD DATE: 01/31/25844 ELECTRONICALLY SIGNED BY: CAROL GALLAGHER MD DATE: 01/31/252052 PATIENT: CHARY HERNANDEZ MR#: [id number] : 1980 SEX: M AGE: 44 LOCATION: [facility] ORDER STATUS: ADM IN [facility] REPORT#: [id number] SERVICE REASON: r/o DVT ORDERING PHYSICIAN: BIANCA GARCIA PROCEDURE: VENOUS GRACIE - US VENOUS DOPPLER BILATERAL EXAM: US for Deep Venous Thrombosis, bilateral Lower Extremity. CLINICAL HISTORY: Rule out deep venous thrombosis. TECHNIQUE: Real-time ultrasound scan of the veins of the bilateral lower extremity with color Doppler flow, spectral waveform analysis and compression. COMPARISON: None provided. FINDINGS: DEEP VEINS: The common femoral, superficial femoral, and popliteal veins are echolucent and compressible. There is normal color Doppler flow throughout. The visualized calf veins appear patent. SOFT TISSUES: No popliteal fossa cyst or other abnormalities. IMPRESSION: No deep venous thrombosis is evident on bilateral lower extremity examination. /Hope DICTATED BY: LARISSA LEMONS Jr., MD DATE: 01/31/25400 ELECTRONICALLY SIGNED BY: LARISSA LEMONS Jr., MD DATE: 01/31/25400 PATIENT: CHARY HERNANDEZ MR#: [id number] : 1980 SEX: M AGE: 44 LOCATION: 2CH ORDER STATUS: ADM IN REPORT#: [id number] SERVICE REASON: r/o P.E. ORDERING PHYSICIAN: BIANCA GARCIA PROCEDURE: CHES PE - CT CHEST PE PROTOCOL WWO CONT EXAMINATION: CT Chest, with intravenous contrast CLINICAL HISTORY: Patient presents to rule out pulmonary embolism. TECHNIQUE: Axial computed tomography images of the chest, with intravenous contrast. Multiplanar reformations were generated and reviewed. CONTRAST: With intravenous contrast. COMPARISON: None provided. FINDINGS: CHEST: LUNGS: The lungs demonstrate extensive diffuse consolidation and airspace opacities and ground-glassing throughout the bilateral lungs, predominantly involving the lower lobes and perihilar regions. No pulmonary mass. PLEURAL SPACES: No pneumothorax or pleural effusion. CARDIOVASCULAR: Cardiomegaly is present. No significant pericardial effusion. The main pulmonary artery measures 3.2 cm. The right pulmonary artery measures 2 cm. The left pulmonary artery measures 2.2 cm. The pulmonary arteries show no evidence of filling defects. Normal caliber thoracic aorta. MEDIASTINUM AND SILVINO: No mediastinal or hilar lymphadenopathy. ABDOMEN : Hepatosplenomegaly BONES: No acute or aggressive osseous abnormality. IMPRESSION: No acute pulmonary embolism. Extensive diffuse bilateral pulmonary airspace opacities, predominantly in the lower lobes and perihilar regions, consistent with pulmonary edema. Cardiomegaly with mild pulmonary arterial hypertension. Hepatosplenomegaly. /Hope DICTATED BY: LARISSA LEMONS Jr., MD DATE: 01/31/25803 ELECTRONICALLY SIGNED BY: LARISSA LEMONS Jr., MD DATE: 01/31/25803 ASSESSMENT: Hyperkalemia Acute renal failure Acute hypoxemic and hypercarbic respiratory failure now with worsening respiratory distress ARDS Community-acquired pneumonia suspected Pneumocystis Toxic metabolic encephalopathy on admission Acute sepsis on admission without septic shock secondary to community-acquired pneumonia HIV positive newly diagnosed stage IV. Not on anti-retroviral medication CD4 count: 19 Immunocompromise status Suspected TB Obstructive sleep apnea, untreated/undiagnosed Morbid obesity, BMI 33.6 Volume overload PLAN: Labs, diagnostic, radiologic exams reviewed and interpreted by myself and supervising physician. We have reviewed external records in detail Continue with close monitoring of electrolytes and renal function Order CBC, CMP, and electrolytes in am Continue with antibiotics as per ID Continue mechanical ventilation and sedation IV pressors as needed Monitor blood pressure adjust medication doses as needed May use Dilaudid 0.5 mg IV every 6 hours as needed for severe pain Monitor blood sugars Strict intake, output, and daily weight should be monitored Please renally adjust medications Avoid nephrotoxic and nonsteroidal drugs Avoid contrast if possible Will continue to monitor renal function, anemia, electrolytes Treatment plan discussed with patient Questions were answered We have discussed with the other team physicians in detail about the care plan We will continue to monitor the patient closely Total critical care time spent with patient, nursing staff, critical care team over 35 minutes ATTESTATION BY PHYSICIAN I have seen and examined the patient. I reviewed the documentation, medical decision making, and treatment plan as noted by the mid-level provider above. I agree with the findings and plan of care. DARBY PORRAS MD, [facility] Feb 15, 2025 10:33
[2025-02-15] MEDS: DEXTROSE 10%-WATER 1,000 ML IV SCH (11:28)
[2025-02-15] MEDS: DEXTROSE 50%-WATER 50 ML DISP.SYRIN IV ONE (16:18)
--- NOTE | 2025-02-15 16:34 | PN ---
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 Acute hypoxemic respiratory failure POA Patient is currently intubated on CPAP, weaned off from propofol and fentanyl drips. Chest x-ray on presentation showed diffuse bilateral pneumonia with ARDS type picture. CT chest on presentation showed bilateral airspace opacities involving nearly entire lung curtis raising concern for severe diffuse pneumonia/ARDS like pattern Patient is currently intubated on CPAP, weaned off from propofol and fentanyl drips. Continue Solu-Medrol 40mg IV bid DuoNeb inhalation q.4h Pulmonology on board, we will continue to follow the recommendations Suspected Pneumocystis Jirovecii Pneumonia (PJP )POA Chest x-ray on presentation showed diffuse bilateral pneumonia with ARDS type picture CT chest showed bilateral airspace opacities involving nearly entire lung curtis raising concern for severe diffuse pneumonia/ARDS like pattern Continue fluconazole 200 mg IV Q 24 , TMP SMX q.6 Continue on IV cefepime2 g q.12h , doxycycline q.12h IV Pulmonology, Infectious Disease on board. We will follow their recommendations. 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 daily on 02/10/2025 Case management working with [facility] for HIV management. ID on board. Sepsis POA On presentation to ED patient's temperature 100.2, pulse 112, respiratory rate 28, lactic acid 2, procalcitonin 1.55 Chest x-ray showed diffuse bilateral pneumonia with ARDS type picture CT chest showed bilateral airspace opacities involving nearly entire lung curtis raising concern for severe diffuse pneumonia/ARDS like pattern Continue fluconazole 200 mg IV Q 24 , TMP SMX q.6 Continue on IV cefepime2 g q.12h , continue doxycycline q.12h IV Lactic acid not trended today We will trend white count, lactic acid Uncontrolled hyperglycemia secondary to steroids Blood glucose in the morning was 322 and well elevated likely from steroids. Continue to monitor the blood glucose level. Continue insulin sliding scale. Tuberculosis R/O POA 3 out of 3 sputum samples collected for AFB smear. Sputum sample is sent for respiratory culture, we will follow up with the culture results. No acid-fast bacilli in smear from first 2 samples, studies to continue. GI prophylaxis with Pepcid 20 mg IV DVT prophylaxis with heparin 5000 SQ q.12h ATTESTATION BY PHYSICIAN I have seen and examined the patient. I reviewed the documentation, medical decision making, and treatment plan as noted by the resident physician above. I agree with the findings and plan of care. Erick Kirby IV, MD, ABHINAV MD Feb 15, 2025 16:34
--- NOTE | 2025-02-15 17:09 | PN ---
PROGRESS NOTE Date of Service: Feb 15, 2025 Time of Service: 17:09 SUBJECTIVE: [ ] REVIEW OF SYSTEMS Unable to complete patient is intubated PHYSICAL EXAM EYES: Anicteric. Pupils equal and reactive. HENT: No oral thrush seen, moist Oral mucosa NECK: Supple, no JVD or thyromegaly. LUNGS: Patient is intubated, rhonchi. CARDIOVASCULAR: S1, S2 regular. No murmur heard. ABDOMEN: Soft, non tender, bowel sounds present, no organomegaly CENTRAL NERVOUS SYSTEM: Patient is intubated SKIN: Dark discoloration noted to right heel, stage 3 ulcer noted to sacrum with granulation and discoloration to periwound. LYMPHATICS: No peripheral lymphadenopathy MUSCULOSKELETAL: No joint swelling, erythema or tenderness. EXTREMITIES: No cyanosis or clubbing BACK: No deformity GENITOURINARY: No dysuria or hematuria Vital Signs (last 8hr) Date Time Temp Pulse Resp B/P (MAP) Pulse Ox O2 Delivery O2 Flow Rate FiO2 02/15/25 15:53 99.1 02/15/25 15:00 102 27 117/58 (77) 98 70 02/15/25 14:45 102 30 115/58 (77) 98 70 02/15/25 14:40 104 70 02/15/25 14:30 101 28 123/69 (87) 99 70 02/15/25 14:15 107 27 117/54 (75) 98 70 02/15/25 14:00 108 27 120/62 (81) 98 70 02/15/25 13:45 104 25 114/62 (79) 98 70 02/15/25 13:30 109 28 125/70 (88) 98 70 02/15/25 13:15 112 29 138/68 (91) 98 70 02/15/25 13:00 111 25 136/66 (89) 99 70 02/15/25 12:45 111 29 140/69 (92) 98 70 02/15/25 12:30 111 27 137/75 (95) 99 70 02/15/25 12:15 99 Ventilator+ 70 02/15/25 12:15 110 29 134/71 (92) 99 70 02/15/25 12:02 70 02/15/25 12:00 105 27 133/72 (92) 99 70 02/15/25 11:45 104 26 124/66 (85) 99 70 02/15/25 11:35 101 70 02/15/25 11:30 100 30 127/65 (85) 99 70 02/15/25 11:27 98.2 02/15/25 11:15 100 29 122/62 (82) 99 70 02/15/25 11:10 95 28 02/15/25 11:00 93 24 111/44 (66) 98 70 02/15/25 10:45 95 26 107/48 (67) 98 70 02/15/25 10:30 96 29 92/46 (61) 98 70 02/15/25 10:15 97 24 100/52 (68) 98 70 02/15/25 10:00 110 26 127/65 (85) 98 70 02/15/25 09:45 109 31 129/74 (92) 98 70 02/15/25 09:30 113 28 139/74 (95) 98 70 02/15/25 09:15 114 29 127/69 (88) 98 70 LABS: Laboratory: Test 02/15/25 15:50 02/15/25 09:18 02/15/25 08:55 02/15/25 04:42 Range/Units Whole Blood Glucose 62 L 70-110 MG/DL Blood Gas Specimen Type Arterial Arterial Blood pH 7.284 L 7.350-7.450 Arterial Blood Partial Pressure CO2 29 L 35-48 mmHg Arterial Blood Partial Pressure O2 61.4 L 83.0-108.0 mmHg Arterial Blood HCO3 13.4 L 21.0-28.0 mmol/L Arterial Blood Oxygen Saturation 89.2 L 94.0-98.0 % Arterial Blood Base Excess -11.7 L -2.0-3.0 mmol/L Blood Gas Temperature 37.0 35.5-37.0 CELSIUS Blood Gas Respiration Rate 12.0 min. Blood Gas Vent Mode AC, LAURA RN ROOM AIR FiO2 60.0 % Blood Gas Tidal Volume 500 ml Blood Gas PEEP 5 cm H2O Blood Gas Specimen Comment LR Lactic Acid Level 6.9 H 0.8-2.5 mmol/L White Blood Count 8.5 4.8-10.8 K/uL Red Blood Count 2.80 L 4.50-6.20 MIL/uL Hemoglobin 7.7 L 14.0-18.0 g/dL Hematocrit 24.0 L 42-54 % Mean Corpuscular Volume 85.7 79-99 fL Mean Corpuscular Hemoglobin 27.5 27.0-33.0 pg Mean Corpuscular Hemoglobin Concent 32.1 32.0-36.0 g/dL Red Cell Distribution Width 13.3 11.0-15.5 % Platelet Count 109 L 130-400 K/uL Mean Platelet Volume 10.1 7.5-10.5 fL Nucleated Red Blood Cells 0.2 H 0.0-0.19 % Sodium Level 130 L 136-145 mmol/L Potassium Level 4.8 3.5-5.1 mmol/L Chloride Level 99 L 101-111 mmol/L Carbon Dioxide Level 16 L 21-32 mmol/L Blood Urea Nitrogen 61 H 7-18 mg/dL Creatinine 1.9 H 0.5-1.3 mg/dL Glomerular Filtration Rate Calc 45 >90 mL/min Random Glucose 61 L 70-105 mg/dL Total Calcium 7.7 L 8.5-10.1 mg/dL Total Bilirubin 0.5 0.2-1.0 mg/dL Aspartate Amino Transf (AST/SGOT) 104 H 10-37 U/L Alanine Aminotransferase (ALT/SGPT) 82 H 12-78 U/L Alkaline Phosphatase 108 50-136 U/L Total Protein 5.3 L 6.0-8.3 g/dL Albumin 1.6 L 3.5-5.0 g/dL Test 02/14/25 03:18 Range/Units Phosphorus Level 4.1 2.5-4.9 mg/dL Magnesium Level 2.10 1.80-2.40 mg/dL Direct Bilirubin 0.3 0.0-0.3 mg/dL Ammonia 32 11-32 umol/L DIAGNOSTICS / RADIOLOGY: [ ] PROBLEM LIST : Medical Problems: (1) ARDS (adult respiratory distress syndrome) ICD Codes: J80 - Acute respiratory distress syndrome (2) SIRS (systemic inflammatory response syndrome) ICD Codes: R65.10 - Systemic inflammatory response syndrome (SIRS) of non- infectious origin without acute organ dysfunction Pressure ulcer to sacral region, stage 3 Deep tissue injury to right heel PLAN: Wound care to sacrum: apply Venelex BID and PRN Wound care to right heel : paint with Betadine daily, leave open to air, apply waffle boots. Waffle mattress Keep wounds clean and dry Offloading/reposition q 2 hours Continue IV antibiotics per ID Comorbidities per primary care team Further Management per hospital course. Thank You for the consult and allowing us to participate in the care of this patient. NETO SANTOS Feb 15, 2025 17:09
--- NOTE | 2025-02-15 17:33 | PN ---
INFECTIOUS DISEASE PROGRESS NOTE Date of Service: Feb 15, 2025 SUBJECTIVE: Patient was seen at bedside in room 217. During rounding today patient is intubated and sedated. Has a high lactic acid of 6.9. Blood culture was repeated this morning, we will follow up on the results. No fever and the WBC is 8.5. We will continue on cefepime, Bactrim, doxycycline and fluconazole. Continues on Truvada and Raltegravir. PHYSICAL EXAM EYES: Anicteric. Pupils equal and reactive. HENT: Oral thrush. NGT. NECK: Supple, no JVD or thyromegaly. LUNGS: On mechanical ventilatory support. CARDIOVASCULAR: S1, S2 regular. No murmur heard. ABDOMEN: Soft, non tender, bowel sounds present, no organomegaly. CENTRAL NERVOUS SYSTEM: Awake but Intubated. SKIN: Rash on abdomen and lower extremities now dried. LYMPHATICS: No peripheral lymphadenopathy MUSCULOSKELETAL: No joint swelling, erythema or tenderness. EXTREMITIES: No cyanosis or clubbing. Weakness. BACK: No deformity, no pressure ulcer. GENITOURINARY: No dysuria or hematuria. Dias catheter. Vital Sign (Last 12 Hours) 02/15/25 02/15/25 02/15/25 02/15/25 05:30 05:45 06:00 06:30 Pulse 97 104 103 101 Resp 30 28 B/P (MAP) 136/78 (97) 140/65 (90) 137/72 (93) Pulse Ox 97 97 97 FiO2 50 02/15/25 02/15/25 02/15/25 02/15/25 06:40 07:00 07:15 07:24 Pulse 114 125 124 Resp 28 29 26 B/P (MAP) 152/72 (98) 150/75 (100) Pulse Ox 95 95 FiO2 50 50 60 02/15/25 02/15/25 02/15/25 02/15/25 07:30 07:30 07:30 07:45 Temp 98.1 Pulse 122 Resp 24 B/P (MAP) 138/74 (95) Pulse Ox 96 96 O2 Delivery Ventilator+ FiO2 60 60 60 02/15/25 02/15/25 02/15/25 02/15/25 07:45 08:00 08:15 08:30 Pulse 119 116 115 113 Resp 28 29 27 28 B/P (MAP) 135/70 (91) 131/73 (92) 125/68 (87) 126/73 (90) Pulse Ox 96 96 96 97 FiO2 60 60 60 60 02/15/25 02/15/25 02/15/25 02/15/25 08:45 09:00 09:07 09:15 Pulse 111 114 117 114 Resp 29 B/P (MAP) 128/69 (88) 127/64 (85) 127/69 (88) Pulse Ox 97 97 98 FiO2 60 60 70 70 02/15/25 02/15/25 02/15/25 02/15/25 09:30 09:45 10:00 10:15 Pulse 113 109 110 97 Resp 24 B/P (MAP) 139/74 (95) 129/74 (92) 127/65 (85) 100/52 (68) Pulse Ox 98 98 98 98 FiO2 70 70 70 70 02/15/25 02/15/25 02/15/25 02/15/25 10:30 10:45 11:00 11:10 Pulse 96 95 93 95 Resp 28 B/P (MAP) 92/46 (61) 107/48 (67) 111/44 (66) Pulse Ox 98 98 98 FiO2 70 70 70 02/15/25 02/15/25 02/15/25 02/15/25 11:15 11:27 11:30 11:35 Temp 98.2 Pulse 100 100 101 Resp 30 B/P (MAP) 122/62 (82) 127/65 (85) Pulse Ox 99 99 FiO2 70 70 70 02/15/25 02/15/25 02/15/25 02/15/25 11:45 12:00 12:02 12:15 Pulse 104 105 110 Resp 29 B/P (MAP) 124/66 (85) 133/72 (92) 134/71 (92) Pulse Ox 99 99 99 FiO2 70 70 70 70 02/15/25 02/15/25 02/15/25 02/15/25 12:15 12:30 12:45 13:00 Pulse 111 111 111 Resp 25 B/P (MAP) 137/75 (95) 140/69 (92) 136/66 (89) Pulse Ox 99 99 98 99 O2 Delivery Ventilator+ FiO2 70 70 70 70 02/15/25 02/15/25 02/15/25 02/15/25 13:15 13:30 13:45 14:00 Pulse 112 109 104 108 Resp 27 B/P (MAP) 138/68 (91) 125/70 (88) 114/62 (79) 120/62 (81) Pulse Ox 98 98 98 98 FiO2 70 70 70 70 02/15/25 02/15/25 02/15/25 02/15/25 14:15 14:30 14:40 14:45 Pulse 107 101 104 102 Resp 30 B/P (MAP) 117/54 (75) 123/69 (87) 115/58 (77) Pulse Ox 98 99 98 FiO2 70 70 70 70 02/15/25 02/15/25 15:00 15:53 Temp 99.1 Pulse 102 Resp 27 B/P (MAP) 117/58 (77) Pulse Ox 98 FiO2 70 Intake & Output (last 24hrs) 02/14/25 02/14/25 02/15/25 15:00 23:00 07:00 Intake Total 1130.0 ml 1704.1 ml 1251.8 ml Output Total 800 ml 950 ml Balance 1130.0 ml 904.1 ml 301.8 ml LABS: Laboratory: Test 02/15/25 15:50 02/15/25 09:18 02/15/25 08:55 02/15/25 04:42 Range/Units Whole Blood Glucose 62 L 70-110 MG/DL Blood Gas Specimen Type Arterial Arterial Blood pH 7.284 L 7.350-7.450 Arterial Blood Partial Pressure CO2 29 L 35-48 mmHg Arterial Blood Partial Pressure O2 61.4 L 83.0-108.0 mmHg Arterial Blood HCO3 13.4 L 21.0-28.0 mmol/L Arterial Blood Oxygen Saturation 89.2 L 94.0-98.0 % Arterial Blood Base Excess -11.7 L -2.0-3.0 mmol/L Blood Gas Temperature 37.0 35.5-37.0 CELSIUS Blood Gas Respiration Rate 12.0 min. Blood Gas Vent Mode AC, LAURA RN ROOM AIR FiO2 60.0 % Blood Gas Tidal Volume 500 ml Blood Gas PEEP 5 cm H2O Blood Gas Specimen Comment LR Lactic Acid Level 6.9 H 0.8-2.5 mmol/L White Blood Count 8.5 4.8-10.8 K/uL Red Blood Count 2.80 L 4.50-6.20 MIL/uL Hemoglobin 7.7 L 14.0-18.0 g/dL Hematocrit 24.0 L 42-54 % Mean Corpuscular Volume 85.7 79-99 fL Mean Corpuscular Hemoglobin 27.5 27.0-33.0 pg Mean Corpuscular Hemoglobin Concent 32.1 32.0-36.0 g/dL Red Cell Distribution Width 13.3 11.0-15.5 % Platelet Count 109 L 130-400 K/uL Mean Platelet Volume 10.1 7.5-10.5 fL Nucleated Red Blood Cells 0.2 H 0.0-0.19 % Sodium Level 130 L 136-145 mmol/L Potassium Level 4.8 3.5-5.1 mmol/L Chloride Level 99 L 101-111 mmol/L Carbon Dioxide Level 16 L 21-32 mmol/L Blood Urea Nitrogen 61 H 7-18 mg/dL Creatinine 1.9 H 0.5-1.3 mg/dL Glomerular Filtration Rate Calc 45 >90 mL/min Random Glucose 61 L 70-105 mg/dL Total Calcium 7.7 L 8.5-10.1 mg/dL Total Bilirubin 0.5 0.2-1.0 mg/dL Aspartate Amino Transf (AST/SGOT) 104 H 10-37 U/L Alanine Aminotransferase (ALT/SGPT) 82 H 12-78 U/L Alkaline Phosphatase 108 50-136 U/L Total Protein 5.3 L 6.0-8.3 g/dL Albumin 1.6 L 3.5-5.0 g/dL Test 02/14/25 03:18 Range/Units Phosphorus Level 4.1 2.5-4.9 mg/dL Magnesium Level 2.10 1.80-2.40 mg/dL Direct Bilirubin 0.3 0.0-0.3 mg/dL Ammonia 32 11-32 umol/L ASSESSMENT: Staphylococcus epidermidis bacteremia, possible a contaminant. Acute hypoxic and hypercapnic respiratory failure, s/p intubation. Multifocal pneumonia. Suspected advanced stage HIV, not on anti-retroviral therapy, POA. Suspected Pneumocystis pneumonia, ruled out. Sepsis. Acute renal failure. Oral candidiasis. Morbid obesity. PLAN: Continue Bactrim IV. Continue fluconazole IV. Continue doxycycline IV. Continue cefepime. Continue on Truvada and Raltegravir. Continue GI prophylaxis. Continues on mechanical ventilatory support. Continue critical care support. We will follow up on the repeat blood culture results. This case was reviewed and discussed with my supervising physician Dr. Sigala and the above assessment and plan was formulated and agreed upon. ATTESTATION BY PHYSICIAN I have seen and examined the patient. I reviewed the documentation, medical decision making, and treatment plan as noted by the mid-level provider above. I agree with the findings and plan of care. MIRZA SIGALA MD, MIRTA L [facility] Feb 15, 2025 17:33
--- NOTE | 2025-02-15 20:43 | NUR ---
Loose front tooth.
--- NOTE | 2025-02-15 23:00 | HMCIMG ---
EXAM: CR Chest, 2 View. CLINICAL HISTORY: RESP FAILURE COMPARISON: 02/13/2025; 19:51 EST FINDINGS: The endotracheal tube with its tip 5 cm away from the catina. The right PICC line tip overlying the SVC The nasogastric catheter is seen up to the proximal stomach. LUNGS: The lungs appear essentially clear apart from bibasilar atelectasis. PLEURAL SPACES: No definite pleural effusion or pneumothorax. MEDIASTINUM: Cardiac size is stable. BONES: No acute osseous abnormality. IMPRESSION: 1. No acute cardiopulmonary findings. Mild stable bibasilar atelectasis. 2. Endotracheal tube tip 5 cm from catina. 3. Right PICC line tip overlying SVC. 4. Nasogastric catheter to the proximal stomach. /[place]
--- NOTE | 2025-02-15 23:15 | HMCIMG ---
EXAMINATION: ULTRASOUND OF THE ABDOMEN (LIMITED) WITH COLOR DOPPLER. CLINICAL HISTORY: To evaluate liver. COMPARISON: None. TECHNIQUE: Real-time grayscale ultrasound images of the abdomen. In addition, color Doppler is medically necessary to perform in order to evaluate vascularity and blood flow. FINDINGS: Liver: Normal in caliber, the right hepatic lobe measures 15.9 cm in the craniocaudal dimension. There is increased echogenicity of the hepatic parenchyma. There is no focal hepatic abnormality or intrahepatic biliary ductal dilatation. There is normal spectral Doppler of the main portal vein. The left lobe is not well visualized. Gallbladder: Within normal limits with normal wall thickness (0.17 cm). No hyperemia or pericholecystic free fluid. There is no cholelithiasis. Common bile duct is normal in caliber, measuring 0.45 cm. Pancreas: Normal in caliber and echotexture. No calcification or dilated pancreatic duct. The right kidney is normal in caliber, the right kidney measures 13.9 x 6.5 x 7.0 cm in craniocaudal, AP, and transverse dimensions respectively. There is normal renal cortical thickness, and cortical echogenicity. There is no renal calculus or hydronephrosis. IMPRESSION:Hepatic steatosis. /Trupti
--- NOTE | 2025-02-15 23:29 | HMCIMG ---
EXAM: CR CHEST, 1 VIEW CLINICAL HISTORY: RESP FAILURE COMPARISON: Previous study dated 02/14/2025 TECHNIQUE: Single frontal radiograph of the chest was obtained. The study is performed in semi-erect position. FINDINGS: Lines/Devices: The endotracheal tube with its tip 5 cm away from the catina. The right PICC line tip overlying the SVC. The nasogastric catheter is seen up to the proximal stomach. Lungs: The lungs appear essentially clear apart from bibasilar atelectasis. No consolidation or ground-glass opacities are observed. Mild pulmonary congestion is seen similar compared to prior exam. Pleural Spaces: No definite pleural effusion or pneumothorax. Mediastinum and cardiovascular structures: Cardiac size is stable. There are calcific atherosclerotic plaques in the aorta. The central airway and mediastinal contours are unremarkable. Bones and soft tissues: No acute osseous abnormality. Soft tissues are unremarkable. IMPRESSION: Compared to previous study dated 02/14/2025; the current study shows: 1. Mild pulmonary congestion is seen similar compared to prior exam. Mild stable bibasilar atelectasis. 2. No appreciable time interval changes with stable findings since last study. /Trupti
[2025-02-16] VITALS (99 sets, daily range): BP systolic 93–151; BP diastolic 34–76; PULSE 91–119; RESP 17–87; TEMP 98.6–99.1; O2SAT 95–99
[2025-02-16 05:21] LABS: IMMATURE GRANULOCYTE ABSOLUTE 0.56 K/uL (0-1); NUCLEATED RED BLOOD CELLS 0.4 % (0.0-0.19); PLATELET COUNT (AUTO) 120 K/uL (130-400); RED BLOOD CELL COUNT(AUTO) 2.89 MIL/uL (4.50-6.20); RED CELL DISTRIBUTION WIDTH 13.6 % (11.0-15.5); WHITE BLOOD COUNT (AUTO) 12.2 K/uL (4.8-10.8)
[2025-02-16 05:40] LABS: ASPARTATE AMINOTRANSFERASE 118.0 U/L (10-37); CREATININE 1.9 mg/dL (0.5-1.3); GLOMERULAR FILTR. RATE CALC 45.0 mL/min (>90); GLUCOSE,RANDOM 108.0 mg/dL (70-105); PHOSPHORUS 3.0 mg/dL (2.5-4.9); SODIUM SERUM 127.0 mmol/L (136-145); TOTAL PROTEIN, SERUM 5.2 g/dL (6.0-8.3); UREA NITROGEN, BLOOD 56.0 mg/dL (7-18)
[2025-02-16 05:45] LABS: BAND NEUTROPHILS % (MANUAL) 1 % (0-2); LYMPHOCYTES % (MANUAL) 3 % (22-44); MAN.DIFF COMMENT-IMPRESSION MANUAL DIFFERENTIAL; PLATELET MORPHOLOGY COMMENT ADEQUATE; SEGMENTED NEUTROPHILS % 96 % (40-70)
--- NOTE | 2025-02-16 05:53 | NUR ---
RN reported critical labs to [facility], [employer] for benchmark. Increase of Lactic acid from 6.9 to 7.4. bmp, vitals, urine output, last abg and current drips. as per [facility], get ABG and start sodium bicarb drip of [id number] + 150meq sodium bicarb to run at 100cc/hr. when bicarb drip is started, drop current d10 to 50cc/hr
[2025-02-16] MEDS: SODIUM BICARB 8.4% 50ML SYRING 150 MEQ in DEXTROSE 5%-WATER 1,000 ML IVP SCH (06:46)
[2025-02-16 08:08] LABS: ABG BASE EXCESS -12.9 mmol/L (-2.0-3.0); ABG HCO3 13.3 mmol/L (21.0-28.0); ABG OXYGEN SATURATION 98.6 % (94.0-98.0); ABG PCO2 31 mmHg (35-48); ABG PH 7.245 (7.350-7.450); CARBON MONOXIDE 0.8 % (0.5-1.5); PO2, ARTERIAL BG 149.6 mmHg (83.0-108.0); TEMPERATURE, CELSIUS BG 37.0 CELSIUS (35.5-37.0); VENT MODE, BG AC (ROOM AIR)
--- NOTE | 2025-02-16 10:29 | HMCIMG ---
EXAM: CR Chest, 1 View. CLINICAL HISTORY: pneumonia COMPARISON: 02/15/2025 FINDINGS: The endotracheal tube with its tip 6 cm away from the catina. The right PICC line tip overlying the SVC. The nasogastric catheter is seen up to the proximal stomach. LUNGS: The lungs appear essentially clear apart from bibasilar atelectasis. No new lung infiltrates or consolidation. PLEURAL SPACES: No evidence of pleural effusion or pneumothorax. MEDIASTINUM: Cardiac size is stable. Slight interval improvement in mild pulmonary congestion. BONES: No acute osseous abnormality. IMPRESSION: Mild pulmonary congestion, slightly improved. No new lung infiltrates or consolidation. Endotracheal tube tip 6 cm from the catina. /Kane
--- NOTE | 2025-02-16 10:36 | PN ---
[facility] PROGRESS NOTE Date Patient Seen: Feb 16, 2025 Time of Visit: 10:36 Supervising Physician: [ ] Primary Care Physician: [Avi LESTER] Outpatient Specialists: [ ] Inpatient Consults: [Dr. Sigala-ID, [facility]-ICU] PROBLEM LIST: Acute hypoxemic and hypercarbic respiratory failure ARDS Community-acquired pneumonia suspected Pneumocystis Toxic metabolic encephalopathy on admission Acute sepsis on admission without septic shock secondary to community-acquired pneumonia HIV positive newly diagnosed stage IV. Not on anti-retroviral medication CD4 count: 19 Immunocompromise status Obstructive sleep apnea, untreated/undiagnosed Morbid obesity, BMI 33.6 JUAN Volume overload INTERVAL HISTORY: Patient is seen at bedside today with family present, he remains on ventilator at 70% FiO2, continues Precedex and propofol drips, he continues on meropenem, Bactrim, doxycycline, fluconazole. Patient continues on antiretrovirals at this time. Lactic acid level at 6.5 today. Blood pressure 132/52 at the time of my visit. Patient remains unresponsive today, discussion held with family at bedside regarding the patient's lab work. All medications reviewed, treatment plan to continue at this time. Plan: Monitor acidosis Postpone extubation Conversation with family regarding advance directives Trend lactic acid Pending CT of the head Continue CPAP Follow Blood and sputum cultures Continue on Cefepime, Doxy, Bactrim, and fluconazole per ID. Follow nephrology recommendations, avoid and nephrotoxic medications. Total critical care time spent 40 minutes, this excludes any procedures performed or any time spent in educational or teaching. REVIEW OF SYSTEMS: Patient on Precedex drip, unable to obtain information from patient. PHYSICAL EXAM: Obese GENERAL: on Vent assistance, responding to self HEENT: EOMI, Sclera non icteric, moist mucosa NECK: Supple, no JVD, trachea midline LUNGS: Fine crackles bilaterally. HEART: Regular rate and rhythm. Normal S1 and S2, without murmurs ABD: Abdomen soft, nontender. Bowel sounds present, obese EXT: No clubbing cyanosis or edema : Dias in situ NEURO: sedated Vital Signs (last 8hr) Date Time Temp Pulse Resp B/P (MAP) Pulse Ox O2 Delivery O2 Flow Rate FiO2 02/16/25 08:00 98.8 02/16/25 08:00 95 Ventilator+ 70 02/16/25 08:00 50 02/16/25 06:15 97 27 132/52 (78) 98 12/11/25 06:00 97 26 130/46 (74) 98 02/16/25 05:45 97 25 131/50 (77) 98 02/16/25 05:30 98 28 132/49 (76) 98 02/16/25 05:15 103 28 137/62 (87) 98 02/16/25 05:00 104 28 130/63 (85) 98 02/16/25 04:45 103 25 130/60 (83) 98 02/16/25 04:30 102 26 132/60 (84) 98 02/16/25 04:15 104 28 127/60 (82) 98 02/16/25 04:00 99 Ventilator+ 70 02/16/25 04:00 102 28 131/63 (85) 98 02/16/25 04:00 70 02/16/25 04:00 99.0 02/16/25 03:54 91 70 02/16/25 03:45 104 27 130/62 (84) 98 02/16/25 03:30 102 17 126/60 (82) 98 02/16/25 03:15 104 26 132/60 (84) 98 02/16/25 03:00 106 28 133/62 (85) 98 02/16/25 02:45 107 29 131/63 (85) 98 LABS: Hematology Labs: Test 02/16/25 05:05 Range/Units White Blood Count 12.2 H 4.8-10.8 K/uL Red Blood Count 2.89 L 4.50-6.20 MIL/uL Hemoglobin 8.2 L 14.0-18.0 g/dL Hematocrit 24.9 L 42-54 % Mean Corpuscular Volume 86.2 79-99 fL Mean Corpuscular Hemoglobin 28.4 27.0-33.0 pg Mean Corpuscular Hemoglobin Concent 32.9 32.0-36.0 g/dL Red Cell Distribution Width 13.6 11.0-15.5 % Platelet Count 120 L 130-400 K/uL Mean Platelet Volume 9.5 7.5-10.5 fL Immature Granulocyte % (Auto) 4.6 H 0-1 % Neutrophils (%) (Auto) 90.5 H 40.0-77.0 % Lymphocytes (%) (Auto) 3.2 L 21.0-51.0 % Monocytes (%) (Auto) 1.5 L 3.0-13.0 % Eosinophils (%) (Auto) 0.0 0.0-8.0 % Basophils (%) (Auto) 0.2 0.0-5.0 % Neutrophils # (Auto) 11.1 H 1.8-7.7 K/uL Lymphocytes # (Auto) 0.4 L 1.0-4.8 K/uL Monocytes # (Auto) 0.2 0.1-1.0 K/uL Eosinophils # (Auto) 0.00 0.00-0.70 K/uL Basophils # (Auto) 0.02 0.00-0.20 K/uL Absolute Immature Granulocyte (auto 0.56 0-1 K/uL Segmented Neutrophils % 96 H 40-70 % Band Neutrophils % 1 0-2 % Lymphocytes % (Manual) 3 L 22-44 % Nucleated Red Blood Cells 0.4 H 0.0-0.19 % Differential Comment MANUAL DIFFERENTIAL White Cell Morphology Comment Platelet Morphology Comment ADEQUATE Red Blood Cell Morphology HYPOCHROM CELLS 1+ Chemistry Labs: Test 02/16/25 09:11 02/16/25 07:45 02/16/25 05:05 Range/Units Lactic Acid Level 6.5 H 0.8-2.5 mmol/L Whole Blood Glucose 97 70-110 MG/DL Sodium Level 127 L 136-145 mmol/L Potassium Level 4.8 3.5-5.1 mmol/L Chloride Level 96 L 101-111 mmol/L Carbon Dioxide Level 15 L 21-32 mmol/L Blood Urea Nitrogen 56 H 7-18 mg/dL Creatinine 1.9 H 0.5-1.3 mg/dL Glomerular Filtration Rate Calc 45 >90 mL/min Random Glucose 108 H 70-105 mg/dL Total Calcium 7.4 L 8.5-10.1 mg/dL Phosphorus Level 3.0 2.5-4.9 mg/dL Magnesium Level 2.00 1.80-2.40 mg/dL Total Bilirubin 0.5 0.2-1.0 mg/dL Aspartate Amino Transf (AST/SGOT) 118 H 10-37 U/L Alanine Aminotransferase (ALT/SGPT) 81 H 12-78 U/L Alkaline Phosphatase 114 50-136 U/L Total Protein 5.2 L 6.0-8.3 g/dL Albumin 1.6 L 3.5-5.0 g/dL DIAGNOSTICS / RADIOLOGY RESULTS: [ ] NEURO: Minimize central acting medications as possible. Fall Precautions. Well lighted room through the day and minimize interruptions through the night to prevent acute delirium. PULMONARY: Supplemental 02 as needed Titrate Fio2 to keep Spo2 > or = 90% DuoNebs and CPT as needed IS hourly while awake for pulmonary hygiene Out of bed to chair as tolerated VAP Bundle Vent/BIPAP Settings: [ BIPAP setting 12/11 rate of 18 FiO2 60%. ] CARDIOVASCULAR: Follow hemodynamics. Titrate vasopressor to keep MAP >65 or systolic blood pressure >95mmHg DRIPS: [Precedex ] LINES: [PIV] GI & NUTRITION: Continue nutritional support Aspirations precautions Prokinetic agents and laxatives as needed KIDNEYS & ELECTROLYTES: Strict monitoring of intake and output Daily weights Avoid nephrotoxic agents Monitor electrolytes and replace as needed Dias care-prevent CAUTI per nursing Goal urine output of 30mL/hr or 0.5mL/kg/hr Urine output: [ ] Fluid Balance: [ ] ENDOCRINE: Maintain blood glucose between 100-180 at all times. Insulin sliding scale for blood glucose management INFECTIOUS DISEASE: Trend temperature. Lara-culture if febrile. Micro: [ ] Antibiotics: [Vancomycin 01/30- IV Fluconazole: 01/30- IV Sulfa/TMP: 01/30-] HEMATOLOGY & COAGULATION: Monitor H&H. Keep Hgb > 7 Transfuse 1 unit of PRBC for Hgb < 7 Transfuse 1 pack of platelets of platelets < 20, 000 Watch for any signs and symptoms of bleeding SKIN: Pressure ulcer prevention per facility protocol Rehab: PT/OT Prophylaxis: GI: [Pepcid] DVT: [Heparin ] Code Status: Full Resuscitation Disposition: [ICU ] RANDALL LAURA PAC Feb 16, 2025 10:36
[2025-02-16] MEDS ORDERED: PHARMACY COMMUNICATION MISC SCH (11:00)
--- NOTE | 2025-02-16 11:13 | PN ---
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 Vial) 50 meq Q8H6 IV 02/06/25 14:00 02/07/25 16:00 DC 02/07/25 14:47 50 MEQ Sodium Chloride 1,000 ml @ 100 mls/hr Q10H IV 01/30/25 20:00 01/31/25 05:38 DC 01/30/25 21:18 100 MLS/HR Sodium Chloride (NS 50ml) 50 ml AD IV 02/10/25 06:00 03/12/25 05:59 Sodium Zirconium Cyclosilicate (Lokelma 10gm Powder) 10 gm BID PO 02/09/25 12:00 02/10/25 11:59 DC 02/10/25 08:29 10 GM Sodium Zirconium Cyclosilicate (Lokelma 10gm Powder) 10 gm TID PO 02/10/25 14:00 02/11/25 13:59 DC 02/11/25 08:26 10 GM Trimethoprim/ Sulfamethoxazole 480 mg/Dextrose 500 ml @ 250 mls/hr Q6H IV 01/30/25 21:00 02/01/25 11:57 DC 02/01/25 02:49 250 MLS/HR Trimethoprim/ Sulfamethoxazole 480 mg/Dextrose 500 ml @ 250 mls/hr Q6H IV 02/01/25 12:00 02/10/25 15:05 DC 02/10/25 08:27 250 MLS/HR Trimethoprim/ Sulfamethoxazole 480 mg/Dextrose 500 ml @ 250 mls/hr Q6H IV 02/10/25 16:00 02/20/25 15:59 02/16/25 10:31 250 MLS/HR Trimethoprim/ Sulfamethoxazole / Dextrose 100 ml @ 100 mls/hr AD IV 01/30/25 20:00 02/09/25 19:59 UNV Wound Care/ Dressing Products (Venelex Ointment) BID TP 02/09/25 21:00 03/11/25 20:59 02/16/25 08:36 1 GM DIAGNOSTICS / RADIOLOGY: [facility] [address] [place] [id number] IMAGING REPORT Signed PATIENT: CHARY HERNANDEZ MR#: [id number] : 1980 SEX: M AGE: 44 LOCATION: 2CH ORDER 25 STATUS: ADM IN REPORT#: [id number] SERVICE [id number] REASON: pneumonia ORDERING PHYSICIAN: DAVEY MANRIQUE MD PROCEDURE: CXR1VW - CHEST 1VW EXAM: CR Chest, 1 View. CLINICAL HISTORY: pneumonia COMPARISON: 02/15/2025 FINDINGS: The endotracheal tube with its tip 6 cm away from the catina. The right PICC line tip overlying the SVC. The nasogastric catheter is seen up to the proximal stomach. LUNGS: The lungs appear essentially clear apart from bibasilar atelectasis. No new lung infiltrates or consolidation. PLEURAL SPACES: No evidence of pleural effusion or pneumothorax. MEDIASTINUM: Cardiac size is stable. Slight interval improvement in mild pulmonary congestion. BONES: No acute osseous abnormality. IMPRESSION: Mild pulmonary congestion, slightly improved. No new lung infiltrates or consolidation. Endotracheal tube tip 6 cm from the catina. /[place] DICTATED BY: LARISSA LEMONS Jr., MD DATE: 02/16/251128 ELECTRONICALLY SIGNED BY: LARISSA LEMONS Jr., MD DATE: 02/16/251128 ASSESSMENT: Acute hypoxemic respiratory failure POA 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 Acute hypoxemic respiratory failure POA Patient is currently intubated on CPAP, weaned off from propofol and fentanyl drips. Chest x-ray on presentation showed diffuse bilateral pneumonia with ARDS type picture. CT chest on presentation showed bilateral airspace opacities involving nearly entire lung curtis raising concern for severe diffuse pneumonia/ARDS like pattern Patient is currently intubated on CPAP, weaned off from propofol and fentanyl drips. Continue Solu-Medrol 40mg IV bid DuoNeb inhalation q.4h Pulmonology on board, we will continue to follow the recommendations Suspected Pneumocystis Jirovecii Pneumonia (PJP )POA Chest x-ray on presentation showed diffuse bilateral pneumonia with ARDS type picture CT chest showed bilateral airspace opacities involving nearly entire lung curtis raising concern for severe diffuse pneumonia/ARDS like pattern Continue fluconazole 200 mg IV Q 24 , TMP SMX q.6 discontinue cefepime and start Meropenem1 g IV every 8 hours and continue on Bactrim, doxycycline and fluconazole. Pulmonology, Infectious Disease on board. We will follow their recommendations. HIV infection with AIDS as he has a CD4 count of 19 Patient had history of on unsafe sexual practices with multiple partners reported by her sister HIV1 and 2 Ab, HIV P 24 Ag evaluation showed preliminary positive for both HIV1 and 2 antigen/antibody, 4th gen preliminary reactive Absolute CD4 count 19, CD4/CD8 ratio 0.04 HIV 1RNA PCR showed a viral load of [id number] Infectious Disease started Isentress 400 mg b.i.d., travuda tablet p.o. daily on 02/10/2025 Case management working with [facility] for HIV management. ID on board. Sepsis POA On presentation to ED patient's temperature 100.2, pulse 112, respiratory rate 28, lactic acid 2, procalcitonin 1.55 Chest x-ray showed diffuse bilateral pneumonia with ARDS type picture CT chest showed bilateral airspace opacities involving nearly entire lung curtis raising concern for severe diffuse pneumonia/ARDS like pattern Continue fluconazole 200 mg IV Q 24 , TMP SMX q.6 discontinue cefepime and start Meropenem1 g IV every 8 hours and continue on Bactrim, doxycycline and fluconazole. Lactic acid today at 7.4 And then dropped to 6.5 We will trend white count, lactic acid Uncontrolled hyperglycemia secondary to steroids Blood glucose in the morning was 322 and well elevated likely from steroids. Continue to monitor the blood glucose level. Continue insulin sliding scale. Tuberculosis R/O POA 3 out of 3 sputum samples collected for AFB smear. Sputum sample is sent for respiratory culture, we will follow up with the culture results. No acid-fast bacilli in smear from first 2 samples, studies to continue. GI prophylaxis with Pepcid 20 mg IV DVT prophylaxis with heparin 5000 SQ q.12h ATTESTATION BY PHYSICIAN I have seen and examined the patient. I reviewed the documentation, medical decision making, and treatment plan as noted by the resident physician above. I agree with the findings and plan of care. Erick Kirby IV, MD, ABHINAV MD Feb 16, 2025 11:13
[2025-02-16] MEDS: MEROPENEM 1GM 1 GM VIAL IVPB SCH (11:44)
--- NOTE | 2025-02-16 12:13 | PN ---
INFECTIOUS DISEASE PROGRESS NOTE Date of Service: Feb 16, 2025 SUBJECTIVE: This is a 44-year-old male patient who was seen at bedside in room 217. Patient is currently intubated and sedated. Nursing reported a unstageable sacral wound, however currently unable to turn patient to assess the wound. The one photo uploaded to [employer] is not a very clear picture to view. Patient is pending wound care evaluation. The WBC trended up to 12.2 but no fever this morning. The lactic acid remains high. The repeat Blood culture has been negative for 24 hours. We will discontinue cefepime and start Meropenem1 g IV every 8 hours and continue on Bactrim, doxycycline and fluconazole. PHYSICAL EXAM EYES: Anicteric. Pupils equal and reactive. HENT: Oral thrush. NGT. NECK: Supple, no JVD or thyromegaly. LUNGS: On mechanical ventilatory support. CARDIOVASCULAR: S1, S2 regular. No murmur heard. ABDOMEN: Soft, non tender, bowel sounds present, no organomegaly. CENTRAL NERVOUS SYSTEM: Awake but Intubated. SKIN: Rash on abdomen and lower extremities now dried. LYMPHATICS: No peripheral lymphadenopathy MUSCULOSKELETAL: No joint swelling, erythema or tenderness. EXTREMITIES: No cyanosis or clubbing. Weakness. BACK: Unstageable sacral ulcer. GENITOURINARY: No dysuria or hematuria. Dias catheter. Vital Sign (Last 12 Hours) 02/16/25 02/16/25 02/16/25 02/16/25 00:11 00:15 00:30 00:45 Pulse 99 105 102 97 Resp B/P (MAP) 120/48 (72) 118/54 (75) 115/46 (69) Pulse Ox 98 98 98 FiO2 70 02/16/25 02/16/25 02/16/25 02/16/25 01:00 01:15 01:30 01:45 Pulse 97 94 93 92 Resp 24 B/P (MAP) 115/46 (69) 106/46 (66) 112/50 (70) 116/47 (70) Pulse Ox 98 98 98 98 02/16/25 02/16/25 02/16/25 02/16/25 02:00 02:15 02:30 02:45 Pulse 98 99 104 107 Resp 29 B/P (MAP) 123/56 (78) 128/55 (79) 126/57 (80) 131/63 (85) Pulse Ox 98 98 98 98 02/16/25 02/16/25 02/16/25 02/16/25 03:00 03:15 03:30 03:45 Pulse 106 104 102 104 Resp B/P (MAP) 133/62 (85) 132/60 (84) 126/60 (82) 130/62 (84) Pulse Ox 98 98 98 98 02/16/25 02/16/25 02/16/25 02/16/25 03:54 04:00 04:00 04:00 Temp 99.0 Pulse 91 102 Resp B/P (MAP) 131/63 (85) Pulse Ox 98 FiO2 70 70 02/16/25 02/16/25 02/16/25 02/16/25 04:00 04:15 04:30 04:45 Pulse 104 102 103 Resp B/P (MAP) 127/60 (82) 132/60 (84) 130/60 (83) Pulse Ox 99 98 98 98 O2 Delivery Ventilator+ FiO2 70 02/16/25 02/16/25 02/16/25 02/16/25 05:00 05:15 05:30 05:45 Pulse 104 103 98 97 Resp B/P (MAP) 130/63 (85) 137/62 (87) 132/49 (76) 131/50 (77) Pulse Ox 98 98 98 98 02/16/25 02/16/25 02/16/25 02/16/25 06:00 06:15 06:45 06:53 Pulse 97 97 100 102 Resp B/P (MAP) 130/46 (74) 132/52 (78) Pulse Ox 98 98 FiO2 70 02/16/25 02/16/25 02/16/25 02/16/25 07:00 07:15 07:30 07:45 Pulse 119 115 110 108 Resp 27 B/P (MAP) 129/57 (81) 126/55 (78) 120/48 (72) Pulse Ox 98 98 98 98 02/16/25 02/16/25 02/16/25 02/16/25 08:00 08:00 08:00 08:00 Temp 98.8 Pulse 107 Resp B/P (MAP) 114/42 (66) Pulse Ox 95 95 O2 Delivery Ventilator+ FiO2 50 70 02/16/25 02/16/25 02/16/25 02/16/25 08:15 08:30 08:45 09:00 Pulse 106 105 105 111 Resp 29 32 B/P (MAP) 115/51 (72) 113/50 (71) 118/46 (70) 124/49 (74) Pulse Ox 96 96 96 97 02/16/25 02/16/25 02/16/25 02/16/25 09:15 09:20 09:30 09:45 Pulse 117 104 117 115 Resp 31 26 B/P (MAP) 127/57 (80) 131/57 (81) 125/58 (80) Pulse Ox 97 97 97 FiO2 50 02/16/25 02/16/25 02/16/25 02/16/25 10:00 10:15 10:30 10:45 Pulse 113 113 113 109 Resp 30 29 B/P (MAP) 125/50 (75) 122/47 (72) 118/50 (72) 117/44 (68) Pulse Ox 97 97 97 97 02/16/25 11:00 Pulse 108 Resp 29 B/P (MAP) 116/45 (68) Pulse Ox 97 Intake & Output (last 24hrs) 02/15/25 02/15/25 02/16/25 15:00 23:00 07:00 Intake Total 1639.5 ml 2312.4 ml 2099.9 ml Output Total 850 ml 200 ml 1650 ml Balance 789.5 ml 2112.4 ml 449.9 ml LABS: Laboratory: Test 02/16/25 11:33 02/16/25 09:11 02/16/25 08:06 02/16/25 05:05 Range/Units Whole Blood Glucose 125 H 70-110 MG/DL Lactic Acid Level 6.5 H 0.8-2.5 mmol/L Blood Gas Specimen Type Arterial Arterial Blood pH 7.245 L 7.350-7.450 Arterial Blood Partial Pressure CO2 31 L 35-48 mmHg Arterial Blood Partial Pressure O2 149.6 H 83.0-108.0 mmHg Arterial Blood HCO3 13.3 L 21.0-28.0 mmol/L Arterial Blood Oxygen Saturation 98.6 H 94.0-98.0 % Arterial Blood Base Excess -12.9 L -2.0-3.0 mmol/L Hemoglobin (Blood Gas) 8.4 L 13.5-17.5 g/dL Sodium (Blood Gas) 126 L 136-145 MMOL/L Bedside Potassium (Blood Gas) 4.5 3.4-4.5 MMOL/L Bedside Chloride (Blood Gas) 101 98-107 MMOL/L Bedside Glucose (Blood Gas) 93 65-95 MG/DL Bedside Ionized Calcium (Blood Gas) 1.10 L 1.15-1.33 MMOL/L Bedside Lactic Acid (Blood Gas) 7.36 *H 0.36-0.75 MMOL/L Blood Gas Temperature 37.0 35.5-37.0 CELSIUS Blood Gas Respiration Rate 12.0 min. Blood Gas Vent Mode AC ROOM AIR FiO2 70.0 % Blood Gas Tidal Volume 500 ml Blood Gas PEEP 5 cm H2O Blood Gas Specimen Comment RR, ANTONIA,RN White Blood Count 12.2 H 4.8-10.8 K/uL Red Blood Count 2.89 L 4.50-6.20 MIL/uL Hemoglobin 8.2 L 14.0-18.0 g/dL Hematocrit 24.9 L 42-54 % Mean Corpuscular Volume 86.2 79-99 fL Mean Corpuscular Hemoglobin 28.4 27.0-33.0 pg Mean Corpuscular Hemoglobin Concent 32.9 32.0-36.0 g/dL Red Cell Distribution Width 13.6 11.0-15.5 % Platelet Count 120 L 130-400 K/uL Mean Platelet Volume 9.5 7.5-10.5 fL Immature Granulocyte % (Auto) 4.6 H 0-1 % Neutrophils (%) (Auto) 90.5 H 40.0-77.0 % Lymphocytes (%) (Auto) 3.2 L 21.0-51.0 % Monocytes (%) (Auto) 1.5 L 3.0-13.0 % Eosinophils (%) (Auto) 0.0 0.0-8.0 % Basophils (%) (Auto) 0.2 0.0-5.0 % Neutrophils # (Auto) 11.1 H 1.8-7.7 K/uL Lymphocytes # (Auto) 0.4 L 1.0-4.8 K/uL Monocytes # (Auto) 0.2 0.1-1.0 K/uL Eosinophils # (Auto) 0.00 0.00-0.70 K/uL Basophils # (Auto) 0.02 0.00-0.20 K/uL Absolute Immature Granulocyte (auto 0.56 0-1 K/uL Segmented Neutrophils % 96 H 40-70 % Band Neutrophils % 1 0-2 % Lymphocytes % (Manual) 3 L 22-44 % Nucleated Red Blood Cells 0.4 H 0.0-0.19 % Differential Comment MANUAL DIFFERENTIAL White Cell Morphology Comment Platelet Morphology Comment ADEQUATE Red Blood Cell Morphology HYPOCHROM CELLS 1+ Sodium Level 127 L 136-145 mmol/L Potassium Level 4.8 3.5-5.1 mmol/L Chloride Level 96 L 101-111 mmol/L Carbon Dioxide Level 15 L 21-32 mmol/L Blood Urea Nitrogen 56 H 7-18 mg/dL Creatinine 1.9 H 0.5-1.3 mg/dL Glomerular Filtration Rate Calc 45 >90 mL/min Random Glucose 108 H 70-105 mg/dL Total Calcium 7.4 L 8.5-10.1 mg/dL Phosphorus Level 3.0 2.5-4.9 mg/dL Magnesium Level 2.00 1.80-2.40 mg/dL Total Bilirubin 0.5 0.2-1.0 mg/dL Aspartate Amino Transf (AST/SGOT) 118 H 10-37 U/L Alanine Aminotransferase (ALT/SGPT) 81 H 12-78 U/L Alkaline Phosphatase 114 50-136 U/L Total Protein 5.2 L 6.0-8.3 g/dL Albumin 1.6 L 3.5-5.0 g/dL ASSESSMENT: Acute hypoxic and hypercapnic respiratory failure, s/p intubation. Multifocal pneumonia. Staphylococcus epidermidis bacteremia, possible a contaminant. Unstageable sacral wound. Suspected advanced stage HIV, not on anti-retroviral therapy, POA. Suspected Pneumocystis pneumonia, ruled out. Sepsis. Acute renal failure. Oral candidiasis. Morbid obesity. PLAN: Discontinue cefepime. Start Meropenem 1 g IV every8 hours. Continue Bactrim IV. Continue fluconazole IV. Continue doxycycline IV. Continue on Truvada and Raltegravir. Continue GI prophylaxis. Continues on mechanical ventilatory support. Continue critical care support. We will follow up on the repeat blood culture results. Pending wound care evaluation. This case was reviewed and discussed with my supervising physician Dr. Sigala and the above assessment and plan was formulated and agreed upon. ATTESTATION BY PHYSICIAN I have seen and examined the patient. I reviewed the documentation, medical decision making, and treatment plan as noted by the mid-level provider above. I agree with the findings and plan of care. MIRZA SIGALA MD, MIRTA L [facility] Feb 16, 2025 12:13
--- NOTE | 2025-02-16 13:02 | PN ---
NEPHROLOGY PROGRESS NOTE Date/Time Patient Seen: Feb 16, 2025 SUBJECTIVE: This is a 44-year-old male with HIV positive newly diagnosed He was brought by EMS to the ED for complaints of shortness of breaths for the past two weeks. He has been in the hospital for several days He continues on antibiotics, including Bactrim, as per ID. He was noted to have elevated BUN/creatinine We are consulted for renal failure Renal function is improving Electrolytes are stable He was seen in the ICU, Continues to be intubated and sedated Family at the bedside Prognosis remains guarded REVIEW OF SYSTEMS: Difficult to obtain given status of the patient who remains intubated mechanically ventilated Vital Signs (last 8hr) Date Time Temp Pulse Resp B/P (MAP) Pulse Ox O2 Delivery O2 Flow Rate FiO2 02/16/25 12:30 105 25 101/34 (56) 96 02/16/25 12:15 105 27 104/40 (61) 97 02/16/25 12:00 108 28 104/45 (64) 97 02/16/25 12:00 99.0 02/16/25 12:00 50 02/16/25 11:45 110 30 105/39 (61) 97 02/16/25 11:30 113 27 120/46 (70) 97 02/16/25 11:16 105 29 02/16/25 11:15 111 29 116/45 (68) 98 02/16/25 11:00 108 29 116/45 (68) 97 02/16/25 10:45 109 29 117/44 (68) 97 02/16/25 10:30 113 30 118/50 (72) 97 02/16/25 10:15 113 27 122/47 (72) 97 02/16/25 10:00 113 27 125/50 (75) 97 02/16/25 09:45 115 26 125/58 (80) 97 02/16/25 09:30 117 31 131/57 (81) 97 02/16/25 09:20 104 50 02/16/25 09:15 117 35 127/57 (80) 97 02/16/25 09:00 111 32 124/49 (74) 97 02/16/25 08:45 105 29 118/46 (70) 96 02/16/25 08:30 105 27 113/50 (71) 96 02/16/25 08:15 106 26 115/51 (72) 96 02/16/25 08:00 98.8 02/16/25 08:00 95 Ventilator+ 70 02/16/25 08:00 50 02/16/25 08:00 107 28 114/42 (66) 95 02/16/25 07:45 108 27 120/48 (72) 98 02/16/25 07:30 110 29 126/55 (78) 98 02/16/25 07:15 115 28 129/57 (81) 98 02/16/25 07:00 119 27 98 02/16/25 06:53 102 29 02/16/25 06:45 100 70 02/16/25 06:15 97 27 132/52 (78) 98 02/16/25 06:00 97 26 130/46 (74) 98 02/16/25 05:45 97 25 131/50 (77) 98 02/16/25 05:30 98 28 132/49 (76) 98 02/16/25 05:15 103 28 137/62 (87) 98 PHYSICAL EXAM: General: acutely ill, sedated, intubated, and mechanically ventilated HEENT: head is atraumatic, pupils equal and reactive, ET tube in place Neck: supple, no masses, no lymphadenopathy, no thyromegaly, no JVD Lungs: decreased breath sounds bilaterally, symmetrical chest movement Cardio: regular rate, S1 and S2 normal, no rub or gallop Abdomen: soft, non tender, no distension, no organomegaly Extremities: trace edema bilateral lower extremities, no cyanosis or clubbing Skin: no rashes or suspicious lesions Neuro: sedated Current Medications Medications (Trade) Dose Ordered Sig/Amada Route Start Time Stop Time Status Last Admin Dose Admin Albuterol (DUOneb) 1 udvial A4IETHB IH 01/30/25 22:00 03/01/25 21:59 02/09/25 10:30 1 UDVIAL Cefepime HCl (MAXipime 2 gm vial) 2 gm Q12H IVPB 02/01/25 14:00 02/11/25 13:59 02/09/25 01:56 2 GM Dexmedetomidine/ Sodium Chloride (PRECEdex 400MCG/ 100ML-NS) 400 mcg PROTOCOL IV 02/04/25 23:45 03/06/25 23:44 02/09/25 05:56 400 MCG Doxycycline Hyclate 250 ml @ 125 mls/hr Q12H IV 01/31/25 14:00 02/10/25 13:59 02/09/25 01:56 125 MLS/HR Famotidine (Pepcid 20mg Vial) 20 mg DAILY IV 01/31/25 09:00 03/02/25 08:59 02/09/25 08:28 20 MG Fentanyl Citrate 100 ml @ 2.5 mls/hr PROTOCOL IV 02/05/25 11:30 02/05/25 19:59 DC 02/05/25 17:13 2.5 MLS/HR Fentanyl/Sodium Chloride 250 ml @ 0.1 mls/hr PROTOCOL IV 02/05/25 20:00 02/08/25 15:52 DC 02/07/25 22:11 0.1 MLS/HR Fluconazole/ Sodium Chloride (DiFLUCan 200 MG/ NS 100 ML) 200 mg DAILY22 IV 02/02/25 22:00 03/01/25 17:59 02/08/25 23:07 200 MG Fluconazole/ Sodium Chloride (DiFLUCan 200 MG/ NS 100 ML) 200 mg Q24H IV 01/30/25 18:00 02/02/25 14:38 DC 02/01/25 18:17 200 MG Furosemide (LASix 20MG VIAL) 20 mg Q8H IV 02/06/25 16:00 03/08/25 15:59 02/09/25 08:02 20 MG Furosemide (LASix 40MG VIAL) 20 mg ONCE STAT IV 01/31/25 05:37 01/31/25 05:40 DC 01/31/25 05:45 20 MG Heparin Sodium (Porcine) (HEParin 5,000 UNIT VIAL) 5,000 unit Q12H SQ 01/31/25 09:00 03/02/25 08:59 02/09/25 08:47 5,000 UNIT Insulin Glargine (LANtus 100 UNITS/ML 10 ML VIAL) 20 units BID SQ 02/04/25 21:00 02/06/25 14:49 DC 02/06/25 10:03 20 UNITS Insulin Glargine (LANtus 100 UNITS/ML 10 ML VIAL) 30 units BID SQ 02/06/25 21:00 03/08/25 20:59 02/09/25 08:36 30 UNITS Insulin Human Regular (humuLIN R 100 UNIT/ML 3ML) INSULIN SLIDING SCAL... ACHS SQ 02/07/25 16:30 02/07/25 11:56 DC Insulin Human Regular (humuLIN R 100 UNIT/ML 3ML) INSULIN SLIDING SCAL... Q6H6 SQ 01/31/25 06:00 02/07/25 11:55 DC 02/07/25 06:03 5 UNIT Insulin Human Regular (humuLIN R 100 UNIT/ML 3ML) INSULIN SLIDING SCAL... Q6H6 SQ 02/07/25 12:00 03/09/25 11:59 02/08/25 18:27 4 UNIT Methylprednisolone Sodium Succinate (Solu-medROL 40MG) 40 mg BID IVP 01/30/25 21:00 01/31/25 04:16 DC 01/30/25 21:18 40 MG Methylprednisolone Sodium Succinate (Solu-medROL 40MG) 40 mg BID IVP 02/07/25 21:00 03/09/25 20:59 02/09/25 08:28 40 MG Methylprednisolone Sodium Succinate (Solu-medROL 40MG) 40 mg Q8H IVP 01/31/25 04:30 02/02/25 11:57 DC 02/02/25 11:47 40 MG Methylprednisolone Sodium Succinate (Solu-medROL 40MG) 60 mg Q6H IVP 02/02/25 12:00 02/07/25 15:17 DC 02/07/25 11:27 60 MG Metoclopramide HCl (regLAN 10MG IV) 10 mg Q8H IVP 02/06/25 16:00 03/08/25 15:59 02/09/25 08:02 10 MG Morphine Sulfate (morPHINE 2MG SYG) 2 mg ONCE STAT IVP 01/31/25 05:41 01/31/25 05:45 DC 01/31/25 05:51 2 MG Multi-Ingred Cream/Lotion/Oil/ Oint (Artificial Tears Eye Oint) Apply ointment to both e... Q4H OU 01/31/25 15:00 03/02/25 14:59 02/09/25 06:37 1 APPL Norepinephrine Bitartrate (Norepineph 16 Mg/250ml NS Premix) sbp>90 PROTOCOL IV 02/05/25 11:30 03/07/25 11:29 Pharmacy Profile Note (Pharmacy Communication) 1 each ONCE MISC 02/05/25 11:30 02/05/25 11:23 DC Piperacillin Sod/ Tazobactam Sod (Zosyn 3.375gm+NS 50ml) 3.375 gm Q8H IVPB 01/31/25 09:30 01/31/25 12:56 DC 01/31/25 11:04 3.375 GM Piperacillin Sod/ Tazobactam Sod (Zosyn 3.375gm+NS 50ml) 3.375 gm ZOSY8 IVPB 01/31/25 13:00 02/01/25 13:33 DC 02/01/25 11:54 3.375 GM Polyethylene Glycol (MIRalax 3350 17 GM POWD.PACK) 17 gm DAILY PO 02/07/25 11:30 03/09/25 11:29 02/09/25 08:28 17 GM Sodium Bicarbonate (Sodium Bicarb 50meq 50ml Vial) 50 meq Q8H6 IV 02/06/25 14:00 02/07/25 16:00 DC 02/07/25 14:47 50 MEQ Sodium Chloride 1,000 ml @ 100 mls/hr Q10H IV 01/30/25 20:00 01/31/25 05:38 DC 01/30/25 21:18 100 MLS/HR Sodium Zirconium Cyclosilicate (Lokelma 10gm Powder) 10 gm BID PO 02/09/25 12:00 02/10/25 11:59 02/09/25 12:26 10 GM Trimethoprim/ Sulfamethoxazole 480 mg/Dextrose 500 ml @ 250 mls/hr Q6H IV 01/30/25 21:00 02/01/25 11:57 DC 02/01/25 02:49 250 MLS/HR Trimethoprim/ Sulfamethoxazole 480 mg/Dextrose 500 ml @ 250 mls/hr Q6H IV 02/01/25 12:00 02/11/25 11:59 02/09/25 12:21 250 MLS/HR Trimethoprim/ Sulfamethoxazole / Dextrose 100 ml @ 100 mls/hr AD IV 01/30/25 20:00 02/09/25 19:59 UNV Wound Care/ Dressing Products (Venelex Ointment) BID TP 02/09/25 21:00 03/11/25 20:59 LABORATORY: [ ] Hematology Labs: Test 02/16/25 05:05 Range/Units White Blood Count 12.2 H 4.8-10.8 K/uL Red Blood Count 2.89 L 4.50-6.20 MIL/uL Hemoglobin 8.2 L 14.0-18.0 g/dL Hematocrit 24.9 L 42-54 % Mean Corpuscular Volume 86.2 79-99 fL Mean Corpuscular Hemoglobin 28.4 27.0-33.0 pg Mean Corpuscular Hemoglobin Concent 32.9 32.0-36.0 g/dL Red Cell Distribution Width 13.6 11.0-15.5 % Platelet Count 120 L 130-400 K/uL Mean Platelet Volume 9.5 7.5-10.5 fL Immature Granulocyte % (Auto) 4.6 H 0-1 % Neutrophils (%) (Auto) 90.5 H 40.0-77.0 % Lymphocytes (%) (Auto) 3.2 L 21.0-51.0 % Monocytes (%) (Auto) 1.5 L 3.0-13.0 % Eosinophils (%) (Auto) 0.0 0.0-8.0 % Basophils (%) (Auto) 0.2 0.0-5.0 % Neutrophils # (Auto) 11.1 H 1.8-7.7 K/uL Lymphocytes # (Auto) 0.4 L 1.0-4.8 K/uL Monocytes # (Auto) 0.2 0.1-1.0 K/uL Eosinophils # (Auto) 0.00 0.00-0.70 K/uL Basophils # (Auto) 0.02 0.00-0.20 K/uL Absolute Immature Granulocyte (auto 0.56 0-1 K/uL Segmented Neutrophils % 96 H 40-70 % Band Neutrophils % 1 0-2 % Lymphocytes % (Manual) 3 L 22-44 % Nucleated Red Blood Cells 0.4 H 0.0-0.19 % Differential Comment MANUAL DIFFERENTIAL White Cell Morphology Comment Platelet Morphology Comment ADEQUATE Red Blood Cell Morphology HYPOCHROM CELLS 1+ Chemistry Labs: Test 02/16/25 11:33 02/16/25 09:11 02/16/25 05:05 Range/Units Whole Blood Glucose 125 H 70-110 MG/DL Lactic Acid Level 6.5 H 0.8-2.5 mmol/L Sodium Level 127 L 136-145 mmol/L Potassium Level 4.8 3.5-5.1 mmol/L Chloride Level 96 L 101-111 mmol/L Carbon Dioxide Level 15 L 21-32 mmol/L Blood Urea Nitrogen 56 H 7-18 mg/dL Creatinine 1.9 H 0.5-1.3 mg/dL Glomerular Filtration Rate Calc 45 >90 mL/min Random Glucose 108 H 70-105 mg/dL Total Calcium 7.4 L 8.5-10.1 mg/dL Phosphorus Level 3.0 2.5-4.9 mg/dL Magnesium Level 2.00 1.80-2.40 mg/dL Total Bilirubin 0.5 0.2-1.0 mg/dL Aspartate Amino Transf (AST/SGOT) 118 H 10-37 U/L Alanine Aminotransferase (ALT/SGPT) 81 H 12-78 U/L Alkaline Phosphatase 114 50-136 U/L Total Protein 5.2 L 6.0-8.3 g/dL Albumin 1.6 L 3.5-5.0 g/dL DIAGNOSTICS / RADIOLOGY: [place] [address] IMAGING REPORT Signed PATIENT: CHARY HERNANDEZ MR#: [id number] : 1980 SEX: M AGE: 44 LOCATION: [facility] ORDER STATUS: ADM IN REPORT#: [id number] SERVICE 0600 REASON: pneumonia ORDERING PHYSICIAN: DAVEY MANRIQUE MD PROCEDURE: CXR1VW - CHEST 1VW EXAM: CR Chest, 1 View. CLINICAL HISTORY: pneumonia COMPARISON: 02/15/2025 FINDINGS: The endotracheal tube with its tip 6 cm away from the catina. The right PICC line tip overlying the SVC. The nasogastric catheter is seen up to the proximal stomach. LUNGS: The lungs appear essentially clear apart from bibasilar atelectasis. No new lung infiltrates or consolidation. PLEURAL SPACES: No evidence of pleural effusion or pneumothorax. MEDIASTINUM: Cardiac size is stable. Slight interval improvement in mild pulmonary congestion. BONES: No acute osseous abnormality. IMPRESSION: Mild pulmonary congestion, slightly improved. No new lung infiltrates or consolidation. Endotracheal tube tip 6 cm from the catina. /[place] DICTATED BY: LARISSA LEMONS Jr., MD DATE: 02/16/251128 ELECTRONICALLY SIGNED BY: LARISSA LEMONS Jr., MD DATE: 02/16/251128 PATIENT: CHARY HERNANDEZ MR#: [id number] : 1980 SEX: M AGE: 44 LOCATION: 2C ORDER 1 STATUS: ADM IN REPORT#: [id number] SERVICE REASON: Pneumonia ORDERING PHYSICIAN: ASHA JOHNSON MD PROCEDURE: CXR1VW - CHEST 1VW EXAM: CR CHEST, 1 VIEW CLINICAL HISTORY: RESP FAILURE COMPARISON: Previous study dated 02/14/2025 TECHNIQUE: Single frontal radiograph of the chest was obtained. The study is performed in semi-erect position. FINDINGS: Lines/Devices: The endotracheal tube with its tip 5 cm away from the catnia. The right PICC line tip overlying the SVC. The nasogastric catheter is seen up to the proximal stomach. Lungs: The lungs appear essentially clear apart from bibasilar atelectasis. No consolidation or ground-glass opacities are observed. Mild pulmonary congestion is seen similar compared to prior exam. Pleural Spaces: No definite pleural effusion or pneumothorax. Mediastinum and cardiovascular structures: Cardiac size is stable. There are calcific atherosclerotic plaques in the aorta. The central airway and mediastinal contours are unremarkable. Bones and soft tissues: No acute osseous abnormality. Soft tissues are unremarkable. IMPRESSION: Compared to previous study dated 02/14/2025; the current study shows: 1. Mild pulmonary congestion is seen similar compared to prior exam. Mild stable bibasilar atelectasis. 2. No appreciable time interval changes with stable findings since last study. /[place] DICTATED BY: LEXX GRIGGS MD DATE: 02/16/2527 ELECTRONICALLY SIGNED BY: LEXX GRIGGS MD DATE: 02/16/2527 PATIENT: CHARY HERNANDEZ MR#: [id number] : 1980 SEX: M AGE: 44 LOCATION: 2[facility] ORDER 3 STATUS: ADM IN REPORT#: [id number] SERVICE 8 REASON: Ultrasound of liver ORDERING PHYSICIAN: TIFFANI HIRSCH MD PROCEDURE: ABDRUQLTD - US ABDOMINAL RUQ\LTD EXAMINATION: ULTRASOUND OF THE ABDOMEN (LIMITED) WITH COLOR DOPPLER. CLINICAL HISTORY: To evaluate liver. COMPARISON: None. TECHNIQUE: Real-time grayscale ultrasound images of the abdomen. In addition, color Doppler is medically necessary to perform in order to evaluate vascularity and blood flow. FINDINGS: Liver: Normal in caliber, the right hepatic lobe measures 15.9 cm in the craniocaudal dimension. There is increased echogenicity of the hepatic parenchyma. There is no focal hepatic abnormality or intrahepatic biliary ductal dilatation. There is normal spectral Doppler of the main portal vein. The left lobe is not well visualized. Gallbladder: Within normal limits with normal wall thickness (0.17 cm). No hyperemia or pericholecystic free fluid. There is no cholelithiasis. Common bile duct is normal in caliber, measuring 0.45 cm. Pancreas: Normal in caliber and echotexture. No calcification or dilated pancreatic duct. The right kidney is normal in caliber, the right kidney measures 13.9 x 6.5 x 7.0 cm in craniocaudal, AP, and transverse dimensions respectively. There is normal renal cortical thickness, and cortical echogenicity. There is no renal calculus or hydronephrosis. IMPRESSION:Hepatic steatosis. /[place] DICTATED BY: LARISSA LEMONS Jr., MD DATE: 02/16/2514 ELECTRONICALLY SIGNED BY: LARISSA LEMONS Jr., MD DATE: 02/16/2514 PATIENT: CHARY HERNANDEZ MR#: [id number] : 1980 SEX: M AGE: 44 LOCATION: [facility] ORDER 2300 STATUS: ADM IN REPORT#: [id number] SERVICE 06 REASON: RESP FAILURE ORDERING PHYSICIAN: EDDIE CLARK MD PROCEDURE: CXR1VW - CHEST 1VW EXAM: CR Chest, 2 View. CLINICAL HISTORY: RESP FAILURE COMPARISON: 02/13/2025; 19:51 EST FINDINGS: The endotracheal tube with its tip 5 cm away from the catina. The right PICC line tip overlying the SVC The nasogastric catheter is seen up to the proximal stomach. LUNGS: The lungs appear essentially clear apart from bibasilar atelectasis. PLEURAL SPACES: No definite pleural effusion or pneumothorax. MEDIASTINUM: Cardiac size is stable. BONES: No acute osseous abnormality. IMPRESSION: 1. No acute cardiopulmonary findings. Mild stable bibasilar atelectasis. 2. Endotracheal tube tip 5 cm from catina. 3. Right PICC line tip overlying SVC. 4. Nasogastric catheter to the proximal stomach. /[place] DICTATED BY: LARISSA LEMONS Jr., MD DATE: 02/15/252358 ELECTRONICALLY SIGNED BY: LARISSA LEMONS Jr., MD DATE: 02/15/252358 PATIENT: CHARY HERNANDEZ MR#: [id number] : 1980 SEX: M AGE: 44 LOCATION: 2[facility] ORDER 37 STATUS: ADM IN REPORT#: [id number] SERVICE 35 REASON: ET Tube Advanced ORDERING PHYSICIAN: BIANCA WICK PROCEDURE: CXR1VW - CHEST 1VW EXAM: CR Chest, 1 View. CLINICAL HISTORY: ET Tube Advanced COMPARISON: 02/13/2025; 5:04 EST FINDINGS: The endotracheal tube with its tip 5.2 cm away from the catnia. The right PICC line tip overlying the SVC The nasogastric catheter is seen up to the proximal stomach. LUNGS: Essentially stable appearance of bilateral lung curtis. PLEURAL SPACES: No pleural effusion or pneumothorax. MEDIASTINUM: Cardiac size is stable. BONES: No aggressive appearing osseous lesion seen. IMPRESSION: 1. Endotracheal tube tip 5.2 cm from catina. 2. Right PICC line tip overlying SVC. 3. Nasogastric tube in the proximal stomach. 4. Essentially stable appearance of bilateral lung curtis. /[place] DICTATED BY: LARISSA LEMONS Jr., MD DATE: 02/14/25720 ELECTRONICALLY SIGNED BY: LARISSA LEMONS Jr., MD DATE: 02/14/25720 PATIENT: CHARY HERNANDEZ MR#: [id number] : 1980 SEX: M AGE: 44 LOCATION: [facility] ORDER 230 STATUS: ADM IN REPORT#: [id number] SERVICE 06 REASON: pneumonia ORDERING PHYSICIAN: NETO STARR PROCEDURE: CXR1VW - CHEST 1VW EXAM: CR Chest, 1 View. CLINICAL HISTORY: pneumonia COMPARISON: 02/12/2025 FINDINGS: The right PICC line tip overlying the SVC Endotracheal tube with its tip 3.9 cm short of the catina. The nasogastric catheter is seen up to the proximal stomach. LUNGS: Interval improvement in the bilateral lung aeration, with an interval decrease in the left lower zone infiltrates. PLEURAL SPACES: No evidence of pleural effusion or pneumothorax. MEDIASTINUM: Cardiac size is stable. BONES: No acute osseous abnormality. IMPRESSION: 1. Interval improvement in bilateral lung aeration, with decreased left lower zone infiltrates. 2. Right PICC line tip overlying the SVC, endotracheal tube tip 3.9 cm proximal to the catina, and nasogastric catheter tip in the proximal gastric body. /[place] DICTATED BY: LARISSA LEMONS Jr., MD DATE: 02/13/251717 ELECTRONICALLY SIGNED BY: LARISSA LEMONS Jr., MD DATE: 02/13/251717 PATIENT: CHARY HERNANDEZ MR#: [id number] : 1980 SEX: M AGE: 44 LOCATION: H ORDER 99 STATUS: ADM IN REPORT#: [id number] SERVICE 0600 REASON: PNEUMONIA ORDERING PHYSICIAN: NETO STARR PROCEDURE: CXR1VW - CHEST 1VW EXAM: CR CHEST, 1 VIEW CLINICAL HISTORY: pneumonia, Endotracheal tube placement. COMPARISON: CR: CHEST 1VW dated 02/11/2025 3:36 NEON MOLDER TECHNIQUE: Single frontal radiograph of the chest was obtained. Mild patient's rotation during the image acquisition is present. FINDINGS: Lines/Devices: Right sided PICC line with its tip overlying the proximal superior vena cava. Endotracheal tube with its tip 5 cm short of catina. Nasogastric catheter with its tip overlying the stomach in the region of the proximal gastric body. Lungs: Almost stationary degree of pulmonary parenchymal congestion on left side, being mild. Persistent left lower lobar lung infiltrates, which may represent atelectasis/consolidation. No right sided pleural effusion. Mild left sided pleural effusion causing opacification of the left hemithorax. There is no pneumothorax. Mediastinum and cardiovascular structures: Moderate cardiomegaly. There are calcific atherosclerotic plaques in the aorta. The central airway and mediastinal contours are unremarkable. Bones and soft tissues: Unremarkable. IMPRESSION: In comparison with the previous chest radiograph dated February 11, 2025, the current radiograph demonstrates: 1. Mild left sided pleural effusion causing opacification of the left hemithorax. Persistent left lower lobar lung infiltrates, which may represent atelectasis/consolidation. 2. Stable endotracheal tube, the right sided PICC line and the nasogastric catheter. 3. Stationary degree of pulmonary parenchymal congestion. /[place] DICTATED BY: LEXX GRIGGS MD DATE: 02/13/2551 ELECTRONICALLY SIGNED BY: LEXX GRIGGS MD DATE: 02/13/2551 PATIENT: CHARY HERNANDEZ MR#: [id number] : 1980 SEX: M AGE: 44 LOCATION: [facility] ORDER 99 STATUS: ADM IN REPORT#: [id number] SERVICE 9 REASON: pp ORDERING PHYSICIAN: BIANCA WICK PAC PROCEDURE: CXR1VW - CHEST 1VW EXAM: CR CHEST, 1 VIEW CLINICAL HISTORY: Endotracheal tube placement. COMPARISON: None provided TECHNIQUE: Single frontal radiograph of the chest was obtained. Gross patient's rotation during the image acquisition is present. FINDINGS: Lines/Devices: Right sided PICC line with its tip overlying the proximal superior vena cava. Endotracheal tube with its tip 5.3 cm short of catina. Nasogastric catheter with its tip overlying the stomach in the region of the proximal gastric body. Lungs: Interval reduction in the degree of pulmonary parenchymal congestion with clearing of the infiltrates from the right lung. Persistent left lower lobar lung infiltrates, which may represent atelectasis/consolidation. No right sided pleural effusion. Moderate sized left sided pleural effusion causing opacification of the left hemithorax. There is no pneumothorax. Mediastinum and cardiovascular structures: Moderate cardiomegaly. There are calcific atherosclerotic plaques in the aorta. The central airway and mediastinal contours are unremarkable. Bones and soft tissues: Unremarkable. IMPRESSION: In comparison with the previous chest radiograph dated February 10, 2025, the current radiograph demonstrates: 1. Stable endotracheal tube, the right sided PICC line and the nasogastric catheter. 2. Moderate sized left sided pleural effusion causing opacification of the left hemithorax. Persistent left lower lobar lung infiltrates, which may represent atelectasis/consolidation. 3. Interval reduction in the degree of pulmonary parenchymal congestion with resolution of the infiltrates from the right lung. /[place] DICTATED BY: LEXX GRIGGS MD DATE: 02/12/25432 ELECTRONICALLY SIGNED BY: LEXX GRIGGS MD DATE: 02/12/25432 PATIENT: CHARY HERNANDEZ MR#: [id number] : 1980 SEX: M AGE: 44 LOCATION: [facility] ORDER 99 STATUS: ADM IN REPORT#: [id number] SERVICE 06 REASON: pp ORDERING PHYSICIAN: BIANCA WICK PROCEDURE: CXR1VW - CHEST 1VW EXAM: CR Chest, 1 View. CLINICAL HISTORY: Endotracheal tube. COMPARISON: 02/09/2025 FINDINGS: The endotracheal tube is seen with its tip terminating about 5.6 cm above the catina. The nasogastric tube is seen in the left hemidiaphragm; the tip is not visualized. LUNGS: Mild interval reduction in the aeration of both lungs. PLEURAL SPACES: No definite pleural effusion or pneumothorax. MEDIASTINUM: Cardiac size is stable. BONES: No aggressive appearing osseous lesion seen. IMPRESSION: 1. Endotracheal tube tip 5.6 cm above the catina. 2. Mild interval reduction in the aeration of both lungs. /[place] DICTATED BY: LARISSA LEMONS Jr., MD DATE: 02/10/251510 ELECTRONICALLY SIGNED BY: LARISSA LEMONS Jr., MD DATE: 02/10/251510 PATIENT: CHARY HERNANDEZ MR#: [id number] : 1980 SEX: M AGE: 44 LOCATION: [facility] ORDER 99 STATUS: ADM IN REPORT#: [id number] SERVICE 06 REASON: Respirateory failure ORDERING PHYSICIAN: NETO STARR PROCEDURE: CXR1VW - CHEST 1VW EXAM: CR Chest, 1 View. CLINICAL HISTORY: Respiratory failure COMPARISON: 02/08/2025 FINDINGS: The endotracheal tube is seen with its tip terminating about 5.4 cm above the catina. The nasogastric tube is seen in the left hemidiaphragm; the tip is not visualized. LUNGS: Essentially stable appearance of bilateral lung curtis, with persistent right basilar and diffuse left lung airspace disease. PLEURAL SPACES: No evidence of pleural effusion or pneumothorax. MEDIASTINUM: The cardiac size is stable. BONES: No aggressive appearing osseous lesion seen. IMPRESSION: 1. Endotracheal tube tip 5.4 cm above catina. 2. Nasogastric tube is demonstrated below the left hemidiaphragm; the tip is not visualized. 3. Essentially stable appearance of bilateral lung curtis, with persistent right basilar and diffuse left lung airspace disease. /[place] DICTATED BY: LARISSA LEMONS Jr., MD DATE: 02/09/25 105 ELECTRONICALLY SIGNED BY: LARISSA LEMONS Jr., MD DATE: 02/09/25 105 PATIENT: CHARY HERNANDEZ MR#: [id number] : 1980 SEX: M AGE: 44 LOCATION: [facility] ORDER 230 STATUS: ADM IN REPORT#: [id number] SERVICE 0600 REASON: pp ORDERING PHYSICIAN: BIANCA WICK PAC PROCEDURE: CXR1VW - CHEST 1VW EXAM: CR Chest, 1 View. CLINICAL HISTORY: Follow up COMPARISON: 02/07/2025 FINDINGS: The endotracheal tube tip is 6.8 cm away from the catina. The nasogastric tube is seen below the left hemidiaphragm; the tip is not visualized. LUNGS: Essentially stable appearance of the bilateral lung curtis with mild bibasilar atelectasis and questionable small bilateral pleural effusions. PLEURAL SPACES: No evidence of pneumothorax. MEDIASTINUM: Cardiac size is stable. Mild stable pulmonary vascular congestion. BONES: No acute osseous abnormality. IMPRESSION: 1. Stable appearance of bilateral lung curtis with mild bibasilar atelectasis and questionable small bilateral pleural effusions. 2. Endotracheal tube tip 6.8 cm from caitna. 3. Nasogastric tube below left hemidiaphragm, tip not visualized. /[place] DICTATED BY: LARISSA LEMONS Jr., MD DATE: 02/09/25 1110 ELECTRONICALLY SIGNED BY: LARISSA LEMONS Jr., MD DATE: 02/09/25 1110 PATIENT: CHARY HERNANDEZ MR#: [id number] : 1980 SEX: M AGE: 44 LOCATION: [facility] ORDER 2300 STATUS: ADM IN REPORT#: [id number] SERVICE 0600 REASON: pp ORDERING PHYSICIAN: BIANCA WICK PROCEDURE: CXR1VW - CHEST 1VW EXAM: CR Chest, 2 View. CLINICAL HISTORY: Intubated. COMPARISON: 02/06/2025 FINDINGS: The endotracheal tube is seen with its tip terminating about 6.7 cm above the catina. The nasogastric tube terminates in the proximal stomach. LUNGS: Interval improvement in basilar predominant bilateral diffuse airspace disease is present. PLEURAL SPACES: No definite pleural effusion or pneumothorax. MEDIASTINUM: Cardiac size is stable. BONES: No aggressive appearing osseous lesion seen. IMPRESSION: 1. Interval improvement in bilateral basilar predominant airspace disease. 2. Endotracheal tube tip positioned 6.7 cm above catina. 3. The nasogastric tube terminates in the proximal stomach. /[place] DICTATED BY: LARISSA LEMONS Jr., MD DATE: 02/07/251748 ELECTRONICALLY SIGNED BY: LARISSA LEMONS Jr., MD DATE: 02/07/251748 PATIENT: CHARY HERNANDEZ MR#: [id number] : 1980 SEX: M AGE: 44 LOCATION: 2CH ORDER 1341 STATUS: ADM IN REPORT#: [id number] SERVICE 1337 REASON: JUAN ORDERING PHYSICIAN: DARBY PORRAS MD PROCEDURE: RENAL - US RENAL SONOGRAM EXAMINATION: ULTRASOUND OF THE RETROPERITONEUM. CLINICAL HISTORY: JUAN. COMPARISON: None. TECHNIQUE: Real-time grayscale ultrasound images of the kidneys. FINDINGS: The kidneys are normal in caliber, the right kidney measures 12.9 x 6.5 x 6.5 cm and the left kidney measures 11.0 x 5.6 x 5.5 cm in its craniocaudal, AP, and transverse dimensions respectively. There is normal renal cortical thickness, and cortical echogenicity. There is no renal calculus or hydronephrosis. The urinary bladder is partially distended with mild wall thickening (0.6 cm). There are no calculi in the urinary bladder. IMPRESSION: Urinary bladder wall thickening of concern for cystitis. /[place] DICTATED BY: LARISSA LEMONS Jr., MD DATE: 02/07/25716 ELECTRONICALLY SIGNED BY: LARISSA LEMONS Jr., MD DATE: 02/07/25716 PATIENT: CHARY HERNANDEZ MR#: [id number] : 1980 SEX: M AGE: 44 LOCATION: 2CH ORDER 1118 STATUS: ADM IN REPORT#: [id number] SERVICE 114 REASON: post intubation ORDERING PHYSICIAN: COMPA PATRICK MD PROCEDURE: CXR1VW - CHEST 1VW EXAM: CR Chest, 2 View. CLINICAL HISTORY: post intubation COMPARISON: Radiograph from February 04, 2025 FINDINGS: Endotracheal tubes in satisfactory position, tip terminating 3.5 cm above the catina. Right PICC terminates overlying the SVC. Bibasilar airspace disease may reflect an infectious process. No pleural effusion or pneumothorax. Heart size is stable. Pulmonary vessels are within normal limits. IMPRESSION: 1. Endotracheal tube and right PICC line in satisfactory positions. 2. Bibasilar airspace disease, possibly infectious. /[place] DICTATED BY: LARISSA LEMONS Jr., MD DATE: 02/05/251408 ELECTRONICALLY SIGNED BY: LARISSA LEMONS Jr., MD DATE: 02/05/251408 PATIENT: CHARY HERNANDEZ MR#: [id number] : 1980 SEX: M AGE: 44 LOCATION: 2CH ORDER 0930 STATUS: ADM IN REPORT#: [id number] SERVICE 0929 REASON: ngt placement for TF ORDERING PHYSICIAN: ISAC MATHEW MD PROCEDURE: ABD 1VW - ABD 1VW EXAM: CR Abdomen, 1 View. CLINICAL HISTORY: ngt placement for TF COMPARISON: None provided. FINDINGS: BOWEL: The transverse colon is filled with gas and fecal content could be due to constipation Nasogastric tubes projecting below lthe eft hemidiaphragm in the stomach PERITONEUM/SOFT TISSUES: No free air evident. No pathologic appearing calcification. BONES: No acute osseous abnormality. IMPRESSION: The nasogastric tube is projected below the left hemidiaphragm over the stomach, tip is located in the body portion of the stomach Gas and fecal-loaded transverse colon consistent with constipation /[place] DICTATED BY: LARISSA LEMONS Jr., MD DATE: 02/03/251138 ELECTRONICALLY SIGNED BY: LARISSA LEMONS Jr., MD DATE: 02/03/251138 PATIENT: CHARY HERNANDEZ MR#: [id number] : 1980 SEX: M AGE: 44 LOCATION: 2C ORDER 1 STATUS: ADM IN REPORT#: [id number] SERVICE 0426 REASON: hypoxia ORDERING PHYSICIAN: BIANCA GARCIACN PROCEDURE: ECHO CMP - ECHO 2-D COMPLETE APPROVED REPORT EXAM: Two-dimensional and M-mode echocardiogram with Doppler and color Doppler. INDICATION ICD: R06.02 Shortness of breath 2D Dimensions RVDd 4.5 cm LVEF(%) 58.7 (>50%) LVED Vol(simp.) 152.0 mL IVSd 1.2 (0.7-1.1cm) FS(%) 32 % LVES Vol(simp.) 70.0 mL LVDd 6.1 (3.8-5.6cm) LA (2D) 4.0 (1.6-4.0cm) LVEF(%, simp.) 54 % PWd 0.8 (0.7-1.1cm) Ao Root(2D) 3.4 (2.0-3.7cm) LA ESV INDEX (BP) 26.38 mL/m2 IVSs 1.5 cm LVOT diam 2.7 (1.8-2.4cm) LVDs 4.1 (2.5-4.0cm) IVC diam 2.7 cm PWs 1.1 cm Deformation Strain Apical 4 -16.1 % Apical 2 -16.4 % Apical 3 -17.4 % Global Strain -16.6 % M-Mode Dimensions EPSS 0.3 cm LA (MM) 4.2 (1.6-4.0cm) Ao Root(MM) 4.0 (2.0-3.7cm) Aortic Valve AoV Vmax 1.4 m/s Ao Peak GR 7.3 mmHg LVOT Vmax 1.2 m/s AoV VTI 0.3 m Ao Mean GR 4.7 mmHg LVOT VTI 0.23 m MINH (VMAX) 5.28 cm2 MINH (VTI) 5.3 cm2 Mitral Valve MV E Vmax 88.4 cm/s DECEL Time 146 ms MV A Vmax 76.4 cm/s P 1/2 T 41 ms E/A ratio 1.2 MVA (PHT) 5.4 cm2 TDI E/E' Medial 10.2 E/E' Lateral 10.5 Medial E' Peak V 8.64 cm/s Lateral E' Peak V 8.43 cm/s Pulmonary Valve PV Vmax 0.8 m/s PV Peak GR 2.3 mmHg Tricuspid Valve TR Vmax 1.1 m/s RAP (EST) 8 mmHg RVSP 12.9 mmHg TR Peak GR 4.9 mmHg Left Ventricle The left ventricle is normal size. GLS -16.0% There is normal LV segmental wall motion. There is mild left ventricular wall thickness. LVEF is 55%. The LV diastolic function was unable to be assessed due to atrial arrhythmia. Right Ventricle The right ventricle is normal size. The right ventricular systolic function is normal. Atria The left atrium size is normal. The right atrium size is normal. Aortic Valve The aortic valve is normal in structure. No aortic regurgitation is present. There is no aortic valvular stenosis. Mitral Valve The mitral valve is normal in structure. There is trace of mitral valve regurgitation noted. There is no mitral valve stenosis. Tricuspid Valve The tricuspid valve is normal in structure. There is no tricuspid valve regurgitation noted. Pulmonic Valve The pulmonary valve is normal in structure. There is mild pulmonic valvular regurgitation. Great Vessels The aortic root is normal in size. IVC is dilated and collapses >50% with inspiration. Pericardium There is no pericardial effusion. Other Information Quality : Technically diffcult study due to body habitus Conclusion LVEF is 55%. DICTATED BY: CAROL GALLAGHER MD DATE: 01/31/25844 ELECTRONICALLY SIGNED BY: CAROL GALLAGHER MD DATE: 01/31/252052 PATIENT: CHARY HERNANDEZ MR#: [id number] : 1980 SEX: M AGE: 44 LOCATION: 2CH ORDER [facility]: [facility] REPORT#: [id number] SERVICE REASON: r/o DVT ORDERING PHYSICIAN: BIANCA GARCIA PROCEDURE: VENOUS GRACIE - US VENOUS DOPPLER BILATERAL EXAM: US for Deep Venous Thrombosis, bilateral Lower Extremity. CLINICAL HISTORY: Rule out deep venous thrombosis. TECHNIQUE: Real-time ultrasound scan of the veins of the bilateral lower extremity with color Doppler flow, spectral waveform analysis and compression. COMPARISON: None provided. FINDINGS: DEEP VEINS: The common femoral, superficial femoral, and popliteal veins are echolucent and compressible. There is normal color Doppler flow throughout. The visualized calf veins appear patent. SOFT TISSUES: No popliteal fossa cyst or other abnormalities. IMPRESSION: No deep venous thrombosis is evident on bilateral lower extremity examination. /[place] DICTATED BY: LARISSA LEMONS Jr., MD DATE: 01/31/25400 ELECTRONICALLY SIGNED BY: LARISSA LEMONS Jr., MD DATE: 01/31/25400 PATIENT: CHARY HERNANDEZ MR#: [id number] : 1980 SEX: M AGE: 44 LOCATION: 2CH ORDER STATUS: ADM IN REPORT#: [id number] SERVICE REASON: r/o P.E. ORDERING PHYSICIAN: BIANCA GARCIA PROCEDURE: CHES PE - CT CHEST PE PROTOCOL WWO CONT EXAMINATION: CT Chest, with intravenous contrast CLINICAL HISTORY: Patient presents to rule out pulmonary embolism. TECHNIQUE: Axial computed tomography images of the chest, with intravenous contrast. Multiplanar reformations were generated and reviewed. CONTRAST: With intravenous contrast. COMPARISON: None provided. FINDINGS: CHEST: LUNGS: The lungs demonstrate extensive diffuse consolidation and airspace opacities and ground-glassing throughout the bilateral lungs, predominantly involving the lower lobes and perihilar regions. No pulmonary mass. PLEURAL SPACES: No pneumothorax or pleural effusion. CARDIOVASCULAR: Cardiomegaly is present. No significant pericardial effusion. The main pulmonary artery measures 3.2 cm. The right pulmonary artery measures 2 cm. The left pulmonary artery measures 2.2 cm. The pulmonary arteries show no evidence of filling defects. Normal caliber thoracic aorta. MEDIASTINUM AND SILVINO: No mediastinal or hilar lymphadenopathy. ABDOMEN : Hepatosplenomegaly BONES: No acute or aggressive osseous abnormality. IMPRESSION: No acute pulmonary embolism. Extensive diffuse bilateral pulmonary airspace opacities, predominantly in the lower lobes and perihilar regions, consistent with pulmonary edema. Cardiomegaly with mild pulmonary arterial hypertension. Hepatosplenomegaly. /[place] DICTATED BY: LARISSA LEMONS Jr., MD DATE: 01/31/25803 ELECTRONICALLY SIGNED BY: LARISSA LEMONS Jr., MD DATE: 01/31/25803 ASSESSMENT: Hyperkalemia Acute renal failure Acute hypoxemic and hypercarbic respiratory failure now with worsening respiratory distress ARDS Community-acquired pneumonia suspected Pneumocystis Toxic metabolic encephalopathy on admission Acute sepsis on admission without septic shock secondary to community-acquired pneumonia HIV positive newly diagnosed stage IV. Not on anti-retroviral medication CD4 count: 19 Immunocompromise status Suspected TB Obstructive sleep apnea, untreated/undiagnosed Morbid obesity, BMI 33.6 Volume overload PLAN: Labs, diagnostic, radiologic exams reviewed and interpreted by myself and supervising physician. We have reviewed external records in detail There is no need for emergent renal replacement therapy at this time. Continue with close monitoring of electrolytes and renal function Order CBC, CMP, and electrolytes in am Continue with antibiotics as per ID Continue mechanical ventilation and sedation IV pressors as needed Monitor blood pressure adjust medication doses as needed May use Dilaudid 0.5 mg IV every 6 hours as needed for severe pain Monitor blood sugars Strict intake, output, and daily weight should be monitored Please renally adjust medications Avoid nephrotoxic and nonsteroidal drugs Avoid contrast if possible Will continue to monitor renal function, anemia, electrolytes Treatment plan discussed with patient Questions were answered We have discussed with the other team physicians in detail about the care plan We will continue to monitor the patient closely Total critical care time spent with patient, nursing staff, critical care team over 35 minutes ATTESTATION BY PHYSICIAN I have seen and examined the patient. I reviewed the documentation, medical decision making, and treatment plan as noted by the mid-level provider above. I agree with the findings and plan of care. DARBY PORRAS MD, [facility] Feb 16, 2025 13:02
--- NOTE | 2025-02-16 15:19 | NUR ---
[facility] Follow-up: Patient re-assessed by wound healing team. See wound assessment. Assessment and recommendations provided to primary nurse. Education provided.
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
[2025-02-16] MEDS: SILVER SULFADIAZINE CREAM 50 GM TP SCH (20:59)
[2025-02-17] VITALS (105 sets, daily range): BP systolic 94–134; BP diastolic 38–74; PULSE 82–125; RESP 10–32; TEMP 97.4–98.8; O2SAT 97–99
[2025-02-17 04:32] LABS: NUCLEATED RED BLOOD CELLS 0.3 % (0.0-0.19); PLATELET COUNT (AUTO) 103.0 K/uL (130-400); RED BLOOD CELL COUNT(AUTO) 2.38 MIL/uL (4.50-6.20); RED CELL DISTRIBUTION WIDTH 13.6 % (11.0-15.5); WHITE BLOOD COUNT (AUTO) 6.2 K/uL (4.8-10.8)
[2025-02-17 04:49] LABS: ASPARTATE AMINOTRANSFERASE 103.0 U/L (10-37); CREATININE 1.9 mg/dL (0.5-1.3); GLOMERULAR FILTR. RATE CALC 45.0 mL/min (>90); GLUCOSE,RANDOM 175.0 mg/dL (70-105); PHOSPHORUS 2.7 mg/dL (2.5-4.9); SODIUM SERUM 129.0 mmol/L (136-145); TOTAL PROTEIN, SERUM 4.6 g/dL (6.0-8.3); UREA NITROGEN, BLOOD 51.0 mg/dL (7-18)
[2025-02-17] MEDS ORDERED: MAGNESIUM 2GM PREMIX 50ML 50 ML IV PRN (05:30)
--- NOTE | 2025-02-17 07:30 | NUR ---
Critical Lab Results Reported critical lab results to benchmark management professional Cordell Winston ALL PURPOSE CLERK of Hemoglobin of 6.8 and Hematocrit of 20.1. ALL PURPOSE CLERK ordered 1 unit of Packed Red Blood Cells. Obtained Telephone consent for blood utilization with POA. Obtained a type & screen and awaiting on lab for blood product.
--- NOTE | 2025-02-17 09:46 | PN ---
[facility] PROGRESS NOTE Date Patient Seen: Feb 17, 2025 Time of Visit: 09:46 Supervising Physician: Dr. Kartik Abdul Primary Care Physician: [Avi LESTER] Outpatient Specialists: [ ] Inpatient Consults: [Dr. Sigala-MARION, [facility]] PROBLEM LIST: Acute hypoxemic and hypercarbic respiratory failure ARDS Community-acquired pneumonia suspected Pneumocystis Toxic metabolic encephalopathy on admission Acute sepsis on admission without septic shock secondary to community-acquired pneumonia HIV positive newly diagnosed stage IV. Not on anti-retroviral medication CD4 count: 19 Immunocompromise status Obstructive sleep apnea, untreated/undiagnosed Morbid obesity, BMI 33.6 JUAN Volume overload INTERVAL HISTORY: Patient evaluated at bedside today, he currently continues on ventilator at 40 L 50% FiO2 white count is 6.2 with a hemoglobin of 6.8, patient currently receiving 1 unit PRBCs pending hemoglobin rechecked. Platelets at 103 today, creatinine of 1.9, Lovenox held for today's dose pending transfusion. Patient's lactic acid increased today at 9.0, we will titrate up on the Levophed to increase perfusion. Patient remains on Precedex and propofol at this time. Blood pressure is currently between 99 and 102 systolic. 5.8 L output overnight however patient is fluid balance trend indicates likely fluid retention over the last several days. He remains on D10 at 50 mL/hour and LR at 100 mL/hour. No plans for extubation at this time. Patient remains unresponsive to painful stimuli. We will re-evaluate after transfusion is complete. Plan: Monitor acidosis Pending 1 unit PRBCs Increased titration of Levophed for increased perfusion Postpone extubation Conversation with family regarding advance directives Trend lactic acid Pending CT of the head Follow Blood and sputum cultures Continue on Cefepime, Doxy, Bactrim, and fluconazole per ID. Follow nephrology recommendations, avoid and nephrotoxic medications. Total critical care time spent 40 minutes, this excludes any procedures performed or any time spent in educational or teaching. REVIEW OF SYSTEMS: Patient on Precedex drip, unable to obtain information from patient. PHYSICAL EXAM: Obese GENERAL: on Vent assistance, responding to self HEENT: EOMI, Sclera non icteric, moist mucosa NECK: Supple, no JVD, trachea midline LUNGS: Fine crackles bilaterally. HEART: Regular rate and rhythm. Normal S1 and S2, without murmurs ABD: Abdomen soft, nontender. Bowel sounds present, obese EXT: No clubbing cyanosis or edema : Dias in situ NEURO: sedated Vital Signs (last 8hr) Date Time Temp Pulse Resp B/P (MAP) Pulse Ox O2 Delivery O2 Flow Rate FiO2 02/17/25 09:00 85 12 102/46 (64) 99 02/17/25 08:48 87 50 02/17/25 08:45 86 15 100/44 (62) 99 02/17/25 08:30 86 15 99/38 (58) 98 02/17/25 08:15 88 19 121/50 (73) 98 02/17/25 08:00 97.3 Ventilator 50 02/17/25 08:00 97.3 87 15 114/50 (71) 99 02/17/25 08:00 50 02/17/25 07:45 88 16 109/51 (70) 99 02/17/25 07:30 90 17 118/46 (70) 98 02/17/25 07:15 89 16 113/43 (66) 98 02/17/25 07:00 89 18 103/42 (62) 98 50 02/17/25 06:45 91 15 98/41 (60) 99 02/17/25 06:37 86 17 02/17/25 06:33 86 50 02/17/25 06:30 90 16 104/39 (60) 99 02/17/25 06:15 86 17 109/45 (66) 98 02/17/25 06:00 86 19 107/39 (61) 98 50 02/17/25 05:45 86 19 111/43 (65) 98 02/17/25 05:30 87 18 108/43 (64) 98 02/17/25 05:15 88 16 108/47 (67) 98 02/17/25 05:00 88 16 105/41 (62) 99 50 02/17/25 04:45 87 16 113/52 (72) 99 02/17/25 04:30 88 16 109/50 (69) 99 02/17/25 04:15 88 16 112/50 (70) 99 02/17/25 04:00 98.4 87 16 111/53 (72) 99 50 02/17/25 04:00 50 02/17/25 04:00 98.4 Ventilator 50 02/17/25 04:00 99 Ventilator+ 50 02/17/25 03:50 95 50 02/17/25 03:45 88 17 112/47 (68) 99 02/17/25 03:30 89 17 110/47 (68) 99 02/17/25 03:15 89 17 112/49 (70) 98 02/17/25 03:00 90 17 108/44 (65) 98 50 02/17/25 02:45 90 17 109/46 (67) 98 02/17/25 02:30 91 17 109/49 (69) 98 02/17/25 02:15 90 17 105/44 (64) 98 02/17/25 02:00 90 17 110/47 (68) 98 50 LABS: Hematology Labs: Test 02/17/25 04:21 02/16/25 05:05 Range/Units White Blood Count 6.2 # 4.8-10.8 K/uL Red Blood Count 2.38 L 4.50-6.20 MIL/uL Hemoglobin 6.8 *L 14.0-18.0 g/dL Hematocrit 20.1 *L 42-54 % Mean Corpuscular Volume 84.5 79-99 fL Mean Corpuscular Hemoglobin 28.6 27.0-33.0 pg Mean Corpuscular Hemoglobin Concent 33.8 32.0-36.0 g/dL Red Cell Distribution Width 13.6 11.0-15.5 % Platelet Count 103 L 130-400 K/uL Mean Platelet Volume 9.6 7.5-10.5 fL Nucleated Red Blood Cells 0.3 H 0.0-0.19 % Immature Granulocyte % (Auto) 4.6 H 0-1 % Neutrophils (%) (Auto) 90.5 H 40.0-77.0 % Lymphocytes (%) (Auto) 3.2 L 21.0-51.0 % Monocytes (%) (Auto) 1.5 L 3.0-13.0 % Eosinophils (%) (Auto) 0.0 0.0-8.0 % Basophils (%) (Auto) 0.2 0.0-5.0 % Neutrophils # (Auto) 11.1 H 1.8-7.7 K/uL Lymphocytes # (Auto) 0.4 L 1.0-4.8 K/uL Monocytes # (Auto) 0.2 0.1-1.0 K/uL Eosinophils # (Auto) 0.00 0.00-0.70 K/uL Basophils # (Auto) 0.02 0.00-0.20 K/uL Absolute Immature Granulocyte (auto 0.56 0-1 K/uL Segmented Neutrophils % 96 H 40-70 % Band Neutrophils % 1 0-2 % Lymphocytes % (Manual) 3 L 22-44 % Differential Comment MANUAL DIFFERENTIAL White Cell Morphology Comment Platelet Morphology Comment ADEQUATE Red Blood Cell Morphology HYPOCHROM CELLS 1+ Chemistry Labs: Test 02/17/25 07:58 02/17/25 04:21 02/16/25 09:11 Range/Units Whole Blood Glucose 138 H 70-110 MG/DL Sodium Level 129 L 136-145 mmol/L Potassium Level 4.2 3.5-5.1 mmol/L Chloride Level 96 L 101-111 mmol/L Carbon Dioxide Level 17 L 21-32 mmol/L Blood Urea Nitrogen 51 H 7-18 mg/dL Creatinine 1.9 H 0.5-1.3 mg/dL Glomerular Filtration Rate Calc 45 >90 mL/min Random Glucose 175 #H 70-105 mg/dL Total Calcium 6.9 L 8.5-10.1 mg/dL Phosphorus Level 2.7 2.5-4.9 mg/dL Magnesium Level 1.90 1.80-2.40 mg/dL Total Bilirubin 0.5 0.2-1.0 mg/dL Aspartate Amino Transf (AST/SGOT) 103 H 10-37 U/L Alanine Aminotransferase (ALT/SGPT) 71 12-78 U/L Alkaline Phosphatase 93 50-136 U/L Total Protein 4.6 L 6.0-8.3 g/dL Albumin 1.4 L 3.5-5.0 g/dL Lactic Acid Level 6.5 H 0.8-2.5 mmol/L DIAGNOSTICS / RADIOLOGY RESULTS: [ ] NEURO: Minimize central acting medications as possible. Fall Precautions. Well lighted room through the day and minimize interruptions through the night to prevent acute delirium. PULMONARY: Supplemental 02 as needed Titrate Fio2 to keep Spo2 > or = 90% DuoNebs and CPT as needed IS hourly while awake for pulmonary hygiene Out of bed to chair as tolerated VAP Bundle Vent/BIPAP Settings: [ BIPAP setting 12/11 rate of 18 FiO2 60%. ] CARDIOVASCULAR: Follow hemodynamics. Titrate vasopressor to keep MAP >65 or systolic blood pressure >95mmHg DRIPS: [Precedex ] LINES: [PIV] GI & NUTRITION: Continue nutritional support Aspirations precautions Prokinetic agents and laxatives as needed KIDNEYS & ELECTROLYTES: Strict monitoring of intake and output Daily weights Avoid nephrotoxic agents Monitor electrolytes and replace as needed Dias care-prevent CAUTI per nursing Goal urine output of 30mL/hr or 0.5mL/kg/hr Urine output: [ ] Fluid Balance: [ ] ENDOCRINE: Maintain blood glucose between 100-180 at all times. Insulin sliding scale for blood glucose management INFECTIOUS DISEASE: Trend temperature. Lara-culture if febrile. Micro: [ ] Antibiotics: [Vancomycin 01/30- IV Fluconazole: 01/30- IV Sulfa/TMP: 01/30-] HEMATOLOGY & COAGULATION: Monitor H&H. Keep Hgb > 7 Transfuse 1 unit of PRBC for Hgb < 7 Transfuse 1 pack of platelets of platelets < 20, 000 Watch for any signs and symptoms of bleeding SKIN: Pressure ulcer prevention per facility protocol Rehab: PT/OT Prophylaxis: GI: [Pepcid] DVT: [Heparin ] Code Status: Full Resuscitation Disposition: [ICU ] RANDALL LAURA PAC Feb 17, 2025 09:46
--- NOTE | 2025-02-17 09:49 | PN ---
NEPHROLOGY PROGRESS NOTE Date/Time Patient Seen: Feb 17, 2025 SUBJECTIVE: This is a 44-year-old male with HIV positive newly diagnosed He was brought by EMS to the ED for complaints of shortness of breaths for the past two weeks. He has been in the hospital for several days He continues on antibiotics, including Bactrim, as per ID. He was noted to have elevated BUN/creatinine We are consulted for renal failure Renal function and electrolytes are stable Hemoglobin was noted, pending PRBC transfusion. He was seen in the ICU, Continues to be intubated and sedated Family at the bedside Prognosis remains guarded REVIEW OF SYSTEMS: Difficult to obtain given status of the patient who remains intubated mechanically ventilated Vital Signs (last 8hr) Date Time Temp Pulse Resp B/P (MAP) Pulse Ox O2 Delivery O2 Flow Rate FiO2 02/17/25 09:00 85 12 102/46 (64) 99 02/17/25 08:48 87 50 02/17/25 08:45 86 15 100/44 (62) 99 02/17/25 08:30 86 15 99/38 (58) 98 02/17/25 08:15 88 19 121/50 (73) 98 02/17/25 08:00 97.3 Ventilator 50 02/17/25 08:00 97.3 87 15 114/50 (71) 99 02/17/25 08:00 50 02/17/25 07:45 88 16 109/51 (70) 99 02/17/25 07:30 90 17 118/46 (70) 98 02/17/25 07:15 89 16 113/43 (66) 98 02/17/25 07:00 89 18 103/42 (62) 98 50 02/17/25 06:45 91 15 98/41 (60) 99 02/17/25 06:37 86 17 02/17/25 06:33 86 50 02/17/25 06:30 90 16 104/39 (60) 99 02/17/25 06:15 86 17 109/45 (66) 98 02/17/25 06:00 86 19 107/39 (61) 98 50 02/17/25 05:45 86 19 111/43 (65) 98 02/17/25 05:30 87 18 108/43 (64) 98 02/17/25 05:15 88 16 108/47 (67) 98 02/17/25 05:00 88 16 105/41 (62) 99 50 02/17/25 04:45 87 16 113/52 (72) 99 02/17/25 04:30 88 16 109/50 (69) 99 02/17/25 04:15 88 16 112/50 (70) 99 02/17/25 04:00 98.4 87 16 111/53 (72) 99 50 02/17/25 04:00 50 02/17/25 04:00 98.4 Ventilator 50 02/17/25 04:00 99 Ventilator+ 50 02/17/25 03:50 95 50 02/17/25 03:45 88 17 112/47 (68) 99 02/17/25 03:30 89 17 110/47 (68) 99 02/17/25 03:15 89 17 112/49 (70) 98 02/17/25 03:00 90 17 108/44 (65) 98 50 02/17/25 02:45 90 17 109/46 (67) 98 02/17/25 02:30 91 17 109/49 (69) 98 02/17/25 02:15 90 17 105/44 (64) 98 02/17/25 02:00 90 17 110/47 (68) 98 50 PHYSICAL EXAM: General: acutely ill, sedated, intubated, and mechanically ventilated HEENT: head is atraumatic, pupils equal and reactive, ET tube in place Neck: supple, no masses, no lymphadenopathy, no thyromegaly, no JVD Lungs: decreased breath sounds bilaterally, symmetrical chest movement Cardio: regular rate, S1 and S2 normal, no rub or gallop Abdomen: soft, non tender, no distension, no organomegaly Extremities: trace edema bilateral lower extremities, no cyanosis or clubbing Skin: no rashes or suspicious lesions Neuro: sedated Current Medications Medications (Trade) Dose Ordered Sig/Amada Route Start Time Stop Time Status Last Admin Dose Admin Albuterol (DUOneb) 1 udvial [id number] IH 01/30/25 22:00 03/01/25 21:59 02/09/25 10:30 1 UDVIAL Cefepime HCl (MAXipime 2 gm vial) 2 gm Q12H IVPB 02/01/25 14:00 02/11/25 13:59 02/09/25 01:56 2 GM Dexmedetomidine/ Sodium Chloride (PRECEdex 400MCG/ 100ML-NS) 400 mcg PROTOCOL IV 02/04/25 23:45 03/06/25 23:44 02/09/25 05:56 400 MCG Doxycycline Hyclate 250 ml @ 125 mls/hr Q12H IV 01/31/25 14:00 02/10/25 13:59 02/09/25 01:56 125 MLS/HR Famotidine (Pepcid 20mg Vial) 20 mg DAILY IV 01/31/25 09:00 03/02/25 08:59 02/09/25 08:28 20 MG Fentanyl Citrate 100 ml @ 2.5 mls/hr PROTOCOL IV 02/05/25 11:30 02/05/25 19:59 DC 02/05/25 17:13 2.5 MLS/HR Fentanyl/Sodium Chloride 250 ml @ 0.1 mls/hr PROTOCOL IV 02/05/25 20:00 02/08/25 15:52 DC 02/07/25 22:11 0.1 MLS/HR Fluconazole/ Sodium Chloride (DiFLUCan 200 MG/ NS 100 ML) 200 mg DAILY22 IV 02/02/25 22:00 03/01/25 17:59 02/08/25 23:07 200 MG Fluconazole/ Sodium Chloride (DiFLUCan 200 MG/ NS 100 ML) 200 mg Q24H IV 01/30/25 18:00 02/02/25 14:38 DC 02/01/25 18:17 200 MG Furosemide (LASix 20MG VIAL) 20 mg Q8H IV 02/06/25 16:00 03/08/25 15:59 02/09/25 08:02 20 MG Furosemide (LASix 40MG VIAL) 20 mg ONCE STAT IV 01/31/25 05:37 01/31/25 05:40 DC 01/31/25 05:45 20 MG Heparin Sodium (Porcine) (HEParin 5,000 UNIT VIAL) 5,000 unit Q12H SQ 01/31/25 09:00 03/02/25 08:59 02/09/25 08:47 5,000 UNIT Insulin Glargine (LANtus 100 UNITS/ML 10 ML VIAL) 20 units BID SQ 02/04/25 21:00 02/06/25 14:49 DC 02/06/25 10:03 20 UNITS Insulin Glargine (LANtus 100 UNITS/ML 10 ML VIAL) 30 units BID SQ 02/06/25 21:00 03/08/25 20:59 02/09/25 08:36 30 UNITS Insulin Human Regular (humuLIN R 100 UNIT/ML 3ML) INSULIN SLIDING SCAL... ACHS SQ 02/07/25 16:30 02/07/25 11:56 DC Insulin Human Regular (humuLIN R 100 UNIT/ML 3ML) INSULIN SLIDING SCAL... Q6H6 SQ 01/31/25 06:00 02/07/25 11:55 DC 02/07/25 06:03 5 UNIT Insulin Human Regular (humuLIN R 100 UNIT/ML 3ML) INSULIN SLIDING SCAL... Q6H6 SQ 02/07/25 12:00 03/09/25 11:59 02/08/25 18:27 4 UNIT Methylprednisolone Sodium Succinate (Solu-medROL 40MG) 40 mg BID IVP 01/30/25 21:00 01/31/25 04:16 DC 01/30/25 21:18 40 MG Methylprednisolone Sodium Succinate (Solu-medROL 40MG) 40 mg BID IVP 02/07/25 21:00 03/09/25 20:59 02/09/25 08:28 40 MG Methylprednisolone Sodium Succinate (Solu-medROL 40MG) 40 mg Q8H IVP 01/31/25 04:30 02/02/25 11:57 DC 02/02/25 11:47 40 MG Methylprednisolone Sodium Succinate (Solu-medROL 40MG) 60 mg Q6H IVP 02/02/25 12:00 02/07/25 15:17 DC 02/07/25 11:27 60 MG Metoclopramide HCl (regLAN 10MG IV) 10 mg Q8H IVP 02/06/25 16:00 03/08/25 15:59 02/09/25 08:02 10 MG Morphine Sulfate (morPHINE 2MG SYG) 2 mg ONCE STAT IVP 01/31/25 05:41 01/31/25 05:45 DC 01/31/25 05:51 2 MG Multi-Ingred Cream/Lotion/Oil/ Oint (Artificial Tears Eye Oint) Apply ointment to both e... Q4H OU 01/31/25 15:00 03/02/25 14:59 02/09/25 06:37 1 APPL Norepinephrine Bitartrate (Norepineph 16 Mg/250ml NS Premix) sbp>90 PROTOCOL IV 02/05/25 11:30 03/07/25 11:29 Pharmacy Profile Note (Pharmacy Communication) 1 each ONCE MISC 02/05/25 11:30 02/05/25 11:23 DC Piperacillin Sod/ Tazobactam Sod (Zosyn 3.375gm+NS 50ml) 3.375 gm Q8H IVPB 01/31/25 09:30 01/31/25 12:56 DC 01/31/25 11:04 3.375 GM Piperacillin Sod/ Tazobactam Sod (Zosyn 3.375gm+NS 50ml) 3.375 gm ZOSY8 IVPB 01/31/25 13:00 02/01/25 13:33 DC 02/01/25 11:54 3.375 GM Polyethylene Glycol (MIRalax 3350 17 GM POWD.PACK) 17 gm DAILY PO 02/07/25 11:30 03/09/25 11:29 02/09/25 08:28 17 GM Sodium Bicarbonate (Sodium Bicarb 50meq 50ml Vial) 50 meq Q8H6 IV 02/06/25 14:00 02/07/25 16:00 DC 02/07/25 14:47 50 MEQ Sodium Chloride 1,000 ml @ 100 mls/hr Q10H IV 01/30/25 20:00 01/31/25 05:38 DC 01/30/25 21:18 100 MLS/HR Sodium Zirconium Cyclosilicate (Lokelma 10gm Powder) 10 gm BID PO 02/09/25 12:00 02/10/25 11:59 02/09/25 12:26 10 GM Trimethoprim/ Sulfamethoxazole 480 mg/Dextrose 500 ml @ 250 mls/hr Q6H IV 01/30/25 21:00 02/01/25 11:57 DC 02/01/25 02:49 250 MLS/HR Trimethoprim/ Sulfamethoxazole 480 mg/Dextrose 500 ml @ 250 mls/hr Q6H IV 02/01/25 12:00 02/11/25 11:59 02/09/25 12:21 250 MLS/HR Trimethoprim/ Sulfamethoxazole / Dextrose 100 ml @ 100 mls/hr AD IV 01/30/25 20:00 02/09/25 19:59 UNV Wound Care/ Dressing Products (Venelex Ointment) BID TP 02/09/25 21:00 03/11/25 20:59 LABORATORY: [ ] Hematology Labs: Test 02/17/25 04:21 02/16/25 05:05 Range/Units White Blood Count 6.2 # 4.8-10.8 K/uL Red Blood Count 2.38 L 4.50-6.20 MIL/uL Hemoglobin 6.8 *L 14.0-18.0 g/dL Hematocrit 20.1 *L 42-54 % Mean Corpuscular Volume 84.5 79-99 fL Mean Corpuscular Hemoglobin 28.6 27.0-33.0 pg Mean Corpuscular Hemoglobin Concent 33.8 32.0-36.0 g/dL Red Cell Distribution Width 13.6 11.0-15.5 % Platelet Count 103 L 130-400 K/uL Mean Platelet Volume 9.6 7.5-10.5 fL Nucleated Red Blood Cells 0.3 H 0.0-0.19 % Immature Granulocyte % (Auto) 4.6 H 0-1 % Neutrophils (%) (Auto) 90.5 H 40.0-77.0 % Lymphocytes (%) (Auto) 3.2 L 21.0-51.0 % Monocytes (%) (Auto) 1.5 L 3.0-13.0 % Eosinophils (%) (Auto) 0.0 0.0-8.0 % Basophils (%) (Auto) 0.2 0.0-5.0 % Neutrophils # (Auto) 11.1 H 1.8-7.7 K/uL Lymphocytes # (Auto) 0.4 L 1.0-4.8 K/uL Monocytes # (Auto) 0.2 0.1-1.0 K/uL Eosinophils # (Auto) 0.00 0.00-0.70 K/uL Basophils # (Auto) 0.02 0.00-0.20 K/uL Absolute Immature Granulocyte (auto 0.56 0-1 K/uL Segmented Neutrophils % 96 H 40-70 % Band Neutrophils % 1 0-2 % Lymphocytes % (Manual) 3 L 22-44 % Differential Comment MANUAL DIFFERENTIAL White Cell Morphology Comment Platelet Morphology Comment ADEQUATE Red Blood Cell Morphology HYPOCHROM CELLS 1+ Chemistry Labs: Test 02/17/25 07:58 02/17/25 04:21 02/16/25 09:11 Range/Units Whole Blood Glucose 138 H 70-110 MG/DL Sodium Level 129 L 136-145 mmol/L Potassium Level 4.2 3.5-5.1 mmol/L Chloride Level 96 L 101-111 mmol/L Carbon Dioxide Level 17 L 21-32 mmol/L Blood Urea Nitrogen 51 H 7-18 mg/dL Creatinine 1.9 H 0.5-1.3 mg/dL Glomerular Filtration Rate Calc 45 >90 mL/min Random Glucose 175 #H 70-105 mg/dL Total Calcium 6.9 L 8.5-10.1 mg/dL Phosphorus Level 2.7 2.5-4.9 mg/dL Magnesium Level 1.90 1.80-2.40 mg/dL Total Bilirubin 0.5 0.2-1.0 mg/dL Aspartate Amino Transf (AST/SGOT) 103 H 10-37 U/L Alanine Aminotransferase (ALT/SGPT) 71 12-78 U/L Alkaline Phosphatase 93 50-136 U/L Total Protein 4.6 L 6.0-8.3 g/dL Albumin 1.4 L 3.5-5.0 g/dL Lactic Acid Level 6.5 H 0.8-2.5 mmol/L DIAGNOSTICS / RADIOLOGY: [place] [address] IMAGING REPORT Signed PATIENT: CHARY HERNANDEZ MR#: [id number] : 1980 SEX: M AGE: 44 LOCATION: [facility] ORDER 25 STATUS: ADM IN REPORT#: [id number] SERVICE 0600 REASON: pneumonia ORDERING PHYSICIAN: DAVEY MANRIQUE MD PROCEDURE: CXR1VW - CHEST 1VW EXAM: CR Chest, 1 View. CLINICAL HISTORY: pneumonia COMPARISON: 02/15/2025 FINDINGS: The endotracheal tube with its tip 6 cm away from the catina. The right PICC line tip overlying the SVC. The nasogastric catheter is seen up to the proximal stomach. LUNGS: The lungs appear essentially clear apart from bibasilar atelectasis. No new lung infiltrates or consolidation. PLEURAL SPACES: No evidence of pleural effusion or pneumothorax. MEDIASTINUM: Cardiac size is stable. Slight interval improvement in mild pulmonary congestion. BONES: No acute osseous abnormality. IMPRESSION: Mild pulmonary congestion, slightly improved. No new lung infiltrates or consolidation. Endotracheal tube tip 6 cm from the catina. /[place] DICTATED BY: LARISSA LEMONS Jr., MD DATE: 02/16/251128 ELECTRONICALLY SIGNED BY: LARISSA LEMONS Jr., MD DATE: 02/16/251128 PATIENT: CHARY HERNANDEZ MR#: [id number] : 1980 SEX: M AGE: 44 LOCATION: [facility] ORDER 1 STATUS: ADM IN REPORT#: [id number] SERVICE 0850 REASON: Pneumonia ORDERING PHYSICIAN: ASHA JOHNSON MD PROCEDURE: CXR1VW - CHEST 1VW EXAM: CR CHEST, 1 VIEW CLINICAL HISTORY: RESP FAILURE COMPARISON: Previous study dated 02/14/2025 TECHNIQUE: Single frontal radiograph of the chest was obtained. The study is performed in semi-erect position. FINDINGS: Lines/Devices: The endotracheal tube with its tip 5 cm away from the catina. The right PICC line tip overlying the SVC. The nasogastric catheter is seen up to the proximal stomach. Lungs: The lungs appear essentially clear apart from bibasilar atelectasis. No consolidation or ground-glass opacities are observed. Mild pulmonary congestion is seen similar compared to prior exam. Pleural Spaces: No definite pleural effusion or pneumothorax. Mediastinum and cardiovascular structures: Cardiac size is stable. There are calcific atherosclerotic plaques in the aorta. The central airway and mediastinal contours are unremarkable. Bones and soft tissues: No acute osseous abnormality. Soft tissues are unremarkable. IMPRESSION: Compared to previous study dated 02/14/2025; the current study shows: 1. Mild pulmonary congestion is seen similar compared to prior exam. Mild stable bibasilar atelectasis. 2. No appreciable time interval changes with stable findings since last study. /[place] DICTATED BY: LEXX GRIGGS MD DATE: 02/16/2527 ELECTRONICALLY SIGNED BY: LEXX GRIGGS MD DATE: 02/16/2527 PATIENT: CHARY HERNANDEZ MR#: [id number] : 1980 SEX: M AGE: 44 LOCATION: [facility] ORDER 3 STATUS: ADM IN REPORT#: [id number] SERVICE 8 REASON: Ultrasound of liver ORDERING PHYSICIAN: TIFFANI HIRSCH MD PROCEDURE: ABDRUQLTD - US ABDOMINAL RUQ\LTD EXAMINATION: ULTRASOUND OF THE ABDOMEN (LIMITED) WITH COLOR DOPPLER. CLINICAL HISTORY: To evaluate liver. COMPARISON: None. TECHNIQUE: Real-time grayscale ultrasound images of the abdomen. In addition, color Doppler is medically necessary to perform in order to evaluate vascularity and blood flow. FINDINGS: Liver: Normal in caliber, the right hepatic lobe measures 15.9 cm in the craniocaudal dimension. There is increased echogenicity of the hepatic parenchyma. There is no focal hepatic abnormality or intrahepatic biliary ductal dilatation. There is normal spectral Doppler of the main portal vein. The left lobe is not well visualized. Gallbladder: Within normal limits with normal wall thickness (0.17 cm). No hyperemia or pericholecystic free fluid. There is no cholelithiasis. Common bile duct is normal in caliber, measuring 0.45 cm. Pancreas: Normal in caliber and echotexture. No calcification or dilated pancreatic duct. The right kidney is normal in caliber, the right kidney measures 13.9 x 6.5 x 7.0 cm in craniocaudal, AP, and transverse dimensions respectively. There is normal renal cortical thickness, and cortical echogenicity. There is no renal calculus or hydronephrosis. IMPRESSION:Hepatic steatosis. /[place] DICTATED BY: LARISSA LEMONS Jr., MD DATE: 02/16/2514 ELECTRONICALLY SIGNED BY: LARISSA LEMONS Jr., MD DATE: 02/16/2514 PATIENT: CHARY HERNANDEZ MR#: [id number] : 1980 SEX: M AGE: 44 LOCATION: [facility] ORDER 2300 STATUS: ADM IN REPORT#: [id number] SERVICE 06 REASON: RESP FAILURE ORDERING PHYSICIAN: EDDIE CLARK MD PROCEDURE: CXR1VW - CHEST 1VW EXAM: CR Chest, 2 View. CLINICAL HISTORY: RESP FAILURE COMPARISON: 02/13/2025; 19:51 EST FINDINGS: The endotracheal tube with its tip 5 cm away from the catina. The right PICC line tip overlying the SVC The nasogastric catheter is seen up to the proximal stomach. LUNGS: The lungs appear essentially clear apart from bibasilar atelectasis. PLEURAL SPACES: No definite pleural effusion or pneumothorax. MEDIASTINUM: Cardiac size is stable. BONES: No acute osseous abnormality. IMPRESSION: 1. No acute cardiopulmonary findings. Mild stable bibasilar atelectasis. 2. Endotracheal tube tip 5 cm from catina. 3. Right PICC line tip overlying SVC. 4. Nasogastric catheter to the proximal stomach. /[place] DICTATED BY: LARISSA LEMONS Jr., MD DATE: 02/15/252358 ELECTRONICALLY SIGNED BY: LARISSA LEMONS Jr., MD DATE: 02/15/252358 PATIENT: CHARY HERNANDEZ MR#: [id number] : 1980 SEX: M AGE: 44 LOCATION: [facility] ORDER 37 STATUS: ADM IN REPORT#: [id number] SERVICE 35 REASON: ET Tube Advanced ORDERING PHYSICIAN: BIANCA WICK PROCEDURE: CXR1VW - CHEST 1VW EXAM: CR Chest, 1 View. CLINICAL HISTORY: ET Tube Advanced COMPARISON: 02/13/2025; 5:04 EST FINDINGS: The endotracheal tube with its tip 5.2 cm away from the catina. The right PICC line tip overlying the SVC The nasogastric catheter is seen up to the proximal stomach. LUNGS: Essentially stable appearance of bilateral lung curtis. PLEURAL SPACES: No pleural effusion or pneumothorax. MEDIASTINUM: Cardiac size is stable. BONES: No aggressive appearing osseous lesion seen. IMPRESSION: 1. Endotracheal tube tip 5.2 cm from catina. 2. Right PICC line tip overlying SVC. 3. Nasogastric tube in the proximal stomach. 4. Essentially stable appearance of bilateral lung curtis. /[place] DICTATED BY: LARISSA LEMONS Jr., MD DATE: 02/14/25720 ELECTRONICALLY SIGNED BY: LARISSA LEMONS Jr., MD DATE: 02/14/25720 PATIENT: CHARY HERNANDEZ MR#: [id number] : 1980 SEX: M AGE: 44 LOCATION: [facility] ORDER 230 STATUS: ADM IN REPORT#: [id number] SERVICE 0600 REASON: pneumonia ORDERING PHYSICIAN: NETO STARR PROCEDURE: CXR1VW - CHEST 1VW EXAM: CR Chest, 1 View. CLINICAL HISTORY: pneumonia COMPARISON: 02/12/2025 FINDINGS: The right PICC line tip overlying the SVC Endotracheal tube with its tip 3.9 cm short of the catina. The nasogastric catheter is seen up to the proximal stomach. LUNGS: Interval improvement in the bilateral lung aeration, with an interval decrease in the left lower zone infiltrates. PLEURAL SPACES: No evidence of pleural effusion or pneumothorax. MEDIASTINUM: Cardiac size is stable. BONES: No acute osseous abnormality. IMPRESSION: 1. Interval improvement in bilateral lung aeration, with decreased left lower zone infiltrates. 2. Right PICC line tip overlying the SVC, endotracheal tube tip 3.9 cm proximal to the catina, and nasogastric catheter tip in the proximal gastric body. /[place] DICTATED BY: LARISSA LEMONS Jr., MD DATE: 02/13/251717 ELECTRONICALLY SIGNED BY: LARISSA LEMONS Jr., MD DATE: 02/13/251717 PATIENT: CHARY HERNANDEZ MR#: [id number] : 1980 SEX: M AGE: 44 LOCATION: [facility] ORDER 230 STATUS: ADM IN REPORT#: [id number] SERVICE 0600 REASON: PNEUMONIA ORDERING PHYSICIAN: NETO STARR PROCEDURE: CXR1VW - CHEST 1VW EXAM: CR CHEST, 1 VIEW CLINICAL HISTORY: pneumonia, Endotracheal tube placement. COMPARISON: CR: CHEST 1VW dated 02/11/2025 3:36 [employer] TECHNIQUE: Single frontal radiograph of the chest was obtained. Mild patient's rotation during the image acquisition is present. FINDINGS: Lines/Devices: Right sided PICC line with its tip overlying the proximal superior vena cava. Endotracheal tube with its tip 5 cm short of catina. Nasogastric catheter with its tip overlying the stomach in the region of the proximal gastric body. Lungs: Almost stationary degree of pulmonary parenchymal congestion on left side, being mild. Persistent left lower lobar lung infiltrates, which may represent atelectasis/consolidation. No right sided pleural effusion. Mild left sided pleural effusion causing opacification of the left hemithorax. There is no pneumothorax. Mediastinum and cardiovascular structures: Moderate cardiomegaly. There are calcific atherosclerotic plaques in the aorta. The central airway and mediastinal contours are unremarkable. Bones and soft tissues: Unremarkable. IMPRESSION: In comparison with the previous chest radiograph dated February 11, 2025, the current radiograph demonstrates: 1. Mild left sided pleural effusion causing opacification of the left hemithorax. Persistent left lower lobar lung infiltrates, which may represent atelectasis/consolidation. 2. Stable endotracheal tube, the right sided PICC line and the nasogastric catheter. 3. Stationary degree of pulmonary parenchymal congestion. /[place] DICTATED BY: LEXX GRIGGS MD DATE: 02/13/2551 ELECTRONICALLY SIGNED BY: LEXX GRIGGS MD DATE: 02/13/2551 PATIENT: CHARY HERNANDEZ MR#: [id number] : 1980 SEX: M AGE: 44 LOCATION: [facility] ORDER 2300 STATUS: ADM IN REPORT#: [id number] SERVICE 0600 REASON: pp ORDERING PHYSICIAN: BIANCA WICK PAC PROCEDURE: CXR1VW - CHEST 1VW EXAM: CR CHEST, 1 VIEW CLINICAL HISTORY: Endotracheal tube placement. COMPARISON: None provided TECHNIQUE: Single frontal radiograph of the chest was obtained. Gross patient's rotation during the image acquisition is present. FINDINGS: Lines/Devices: Right sided PICC line with its tip overlying the proximal superior vena cava. Endotracheal tube with its tip 5.3 cm short of catina. Nasogastric catheter with its tip overlying the stomach in the region of the proximal gastric body. Lungs: Interval reduction in the degree of pulmonary parenchymal congestion with clearing of the infiltrates from the right lung. Persistent left lower lobar lung infiltrates, which may represent atelectasis/consolidation. No right sided pleural effusion. Moderate sized left sided pleural effusion causing opacification of the left hemithorax. There is no pneumothorax. Mediastinum and cardiovascular structures: Moderate cardiomegaly. There are calcific atherosclerotic plaques in the aorta. The central airway and mediastinal contours are unremarkable. Bones and soft tissues: Unremarkable. IMPRESSION: In comparison with the previous chest radiograph dated February 10, 2025, the current radiograph demonstrates: 1. Stable endotracheal tube, the right sided PICC line and the nasogastric catheter. 2. Moderate sized left sided pleural effusion causing opacification of the left hemithorax. Persistent left lower lobar lung infiltrates, which may represent atelectasis/consolidation. 3. Interval reduction in the degree of pulmonary parenchymal congestion with resolution of the infiltrates from the right lung. /[place] DICTATED BY: LEXX GRIGGS MD DATE: 02/12/25432 ELECTRONICALLY SIGNED BY: LEXX GRIGGS MD DATE: 02/12/25432 PATIENT: CHARY HERNANDEZ MR#: [id number] : 1980 SEX: M AGE: 44 LOCATION: [facility] ORDER 99 STATUS: ADM IN REPORT#: [id number] SERVICE 9 REASON: pp ORDERING PHYSICIAN: BIANCA WICK PROCEDURE: CXR1VW - CHEST 1VW EXAM: CR Chest, 1 View. CLINICAL HISTORY: Endotracheal tube. COMPARISON: 02/09/2025 FINDINGS: The endotracheal tube is seen with its tip terminating about 5.6 cm above the catina. The nasogastric tube is seen in the left hemidiaphragm; the tip is not visualized. LUNGS: Mild interval reduction in the aeration of both lungs. PLEURAL SPACES: No definite pleural effusion or pneumothorax. MEDIASTINUM: Cardiac size is stable. BONES: No aggressive appearing osseous lesion seen. IMPRESSION: 1. Endotracheal tube tip 5.6 cm above the catina. 2. Mild interval reduction in the aeration of both lungs. /[place] DICTATED BY: LARISSA LEMONS Jr., MD DATE: 02/10/251510 ELECTRONICALLY SIGNED BY: LARISSA LEMONS Jr., MD DATE: 02/10/251510 PATIENT: CHARY HERNANDEZ MR#: [id number] : 1980 SEX: M AGE: 44 LOCATION: [facility] ORDER 99 STATUS: ADM IN REPORT#: [id number] SERVICE 06 REASON: Respirateory failure ORDERING PHYSICIAN: NETO STARR PROCEDURE: CXR1VW - CHEST 1VW EXAM: CR Chest, 1 View. CLINICAL HISTORY: Respiratory failure COMPARISON: 02/08/2025 FINDINGS: The endotracheal tube is seen with its tip terminating about 5.4 cm above the catina. The nasogastric tube is seen in the left hemidiaphragm; the tip is not visualized. LUNGS: Essentially stable appearance of bilateral lung curtis, with persistent right basilar and diffuse left lung airspace disease. PLEURAL SPACES: No evidence of pleural effusion or pneumothorax. MEDIASTINUM: The cardiac size is stable. BONES: No aggressive appearing osseous lesion seen. IMPRESSION: 1. Endotracheal tube tip 5.4 cm above catina. 2. Nasogastric tube is demonstrated below the left hemidiaphragm; the tip is not visualized. 3. Essentially stable appearance of bilateral lung curtis, with persistent right basilar and diffuse left lung airspace disease. /[place] DICTATED BY: LARISSA LEMONS Jr., MD DATE: 02/09/251057 ELECTRONICALLY SIGNED BY: LARISSA LEMONS Jr., MD DATE: 02/09/251057 PATIENT: CHARY HERNANDEZ MR#: [id number] : 1980 SEX: M AGE: 44 LOCATION: [facility] ORDER 2300 STATUS: ADM IN REPORT#: [id number] SERVICE 0600 REASON: pp ORDERING PHYSICIAN: BIANCA WICK PAC PROCEDURE: CXR1VW - CHEST 1VW EXAM: CR Chest, 1 View. CLINICAL HISTORY: Follow up COMPARISON: 02/07/2025 FINDINGS: The endotracheal tube tip is 6.8 cm away from the catina. The nasogastric tube is seen below the left hemidiaphragm; the tip is not visualized. LUNGS: Essentially stable appearance of the bilateral lung curtis with mild bibasilar atelectasis and questionable small bilateral pleural effusions. PLEURAL SPACES: No evidence of pneumothorax. MEDIASTINUM: Cardiac size is stable. Mild stable pulmonary vascular congestion. BONES: No acute osseous abnormality. IMPRESSION: 1. Stable appearance of bilateral lung curtis with mild bibasilar atelectasis and questionable small bilateral pleural effusions. 2. Endotracheal tube tip 6.8 cm from catina. 3. Nasogastric tube below left hemidiaphragm, tip not visualized. /[place] DICTATED BY: LARISSA LEMONS Jr., MD DATE: 02/09/25 1110 ELECTRONICALLY SIGNED BY: LARISSA LEMONS Jr., MD DATE: 02/09/25 1110 PATIENT: CHARY HERNANDEZ MR#: [id number] : 1980 SEX: M AGE: 44 LOCATION: [facility] ORDER 2300 STATUS: ADM IN REPORT#: [id number] SERVICE 0600 REASON: pp ORDERING PHYSICIAN: BIANCA WICK PROCEDURE: CXR1VW - CHEST 1VW EXAM: CR Chest, 2 View. CLINICAL HISTORY: Intubated. COMPARISON: 02/06/2025 FINDINGS: The endotracheal tube is seen with its tip terminating about 6.7 cm above the catina. The nasogastric tube terminates in the proximal stomach. LUNGS: Interval improvement in basilar predominant bilateral diffuse airspace disease is present. PLEURAL SPACES: No definite pleural effusion or pneumothorax. MEDIASTINUM: Cardiac size is stable. BONES: No aggressive appearing osseous lesion seen. IMPRESSION: 1. Interval improvement in bilateral basilar predominant airspace disease. 2. Endotracheal tube tip positioned 6.7 cm above catina. 3. The nasogastric tube terminates in the proximal stomach. /[place] DICTATED BY: LARISSA LEMONS Jr., MD DATE: 02/07/251748 ELECTRONICALLY SIGNED BY: LARISSA LEMONS Jr., MD DATE: 02/07/251748 PATIENT: CHARY HERNANDEZ MR#: [id number] : 1980 SEX: M AGE: 44 LOCATION: 2CH ORDER 1341 STATUS: ADM IN REPORT#: [id number] SERVICE [id number] REASON: JUAN ORDERING PHYSICIAN: DARBY PORRAS MD PROCEDURE: RENAL - US RENAL SONOGRAM EXAMINATION: ULTRASOUND OF THE RETROPERITONEUM. CLINICAL HISTORY: JUAN. COMPARISON: None. TECHNIQUE: Real-time grayscale ultrasound images of the kidneys. FINDINGS: The kidneys are normal in caliber, the right kidney measures 12.9 x 6.5 x 6.5 cm and the left kidney measures 11.0 x 5.6 x 5.5 cm in its craniocaudal, AP, and transverse dimensions respectively. There is normal renal cortical thickness, and cortical echogenicity. There is no renal calculus or hydronephrosis. The urinary bladder is partially distended with mild wall thickening (0.6 cm). There are no calculi in the urinary bladder. IMPRESSION: Urinary bladder wall thickening of concern for cystitis. /[place] DICTATED BY: LARISSA LEMONS Jr., MD DATE: 02/07/25716 ELECTRONICALLY SIGNED BY: LARISSA LEMONS Jr., MD DATE: 02/07/25716 PATIENT: CHARY HERNANDEZ MR#: [id number] : 1980 SEX: M AGE: 44 LOCATION: 2C ORDER 111 STATUS: ADM IN REPORT#: [id number] SERVICE 1145 REASON: post intubation ORDERING PHYSICIAN: COMPA PATRICK MD PROCEDURE: CXR1VW - CHEST 1VW EXAM: CR Chest, 2 View. CLINICAL HISTORY: post intubation COMPARISON: Radiograph from February 04, 2025 FINDINGS: Endotracheal tubes in satisfactory position, tip terminating 3.5 cm above the catina. Right PICC terminates overlying the SVC. Bibasilar airspace disease may reflect an infectious process. No pleural effusion or pneumothorax. Heart size is stable. Pulmonary vessels are within normal limits. IMPRESSION: 1. Endotracheal tube and right PICC line in satisfactory positions. 2. Bibasilar airspace disease, possibly infectious. /[place] DICTATED BY: LARISSA LEMONS Jr., MD DATE: 02/05/251408 ELECTRONICALLY SIGNED BY: LARISSA LEMONS Jr., MD DATE: 02/05/251408 PATIENT: CHARY HERNANDEZ MR#: [id number] : 1980 SEX: M AGE: 44 LOCATION: 2CH ORDER 9 STATUS: ADM IN REPORT#: [id number] SERVICE 8 REASON: ngt placement for TF ORDERING PHYSICIAN: ISAC MATHEW MD PROCEDURE: ABD 1VW - ABD 1VW EXAM: CR Abdomen, 1 View. CLINICAL HISTORY: ngt placement for TF COMPARISON: None provided. FINDINGS: BOWEL: The transverse colon is filled with gas and fecal content could be due to constipation Nasogastric tubes projecting below lthe eft hemidiaphragm in the stomach PERITONEUM/SOFT TISSUES: No free air evident. No pathologic appearing calcification. BONES: No acute osseous abnormality. IMPRESSION: The nasogastric tube is projected below the left hemidiaphragm over the stomach, tip is located in the body portion of the stomach Gas and fecal-loaded transverse colon consistent with constipation /[place] DICTATED BY: LARISSA LEMONS Jr., MD DATE: 02/03/251138 ELECTRONICALLY SIGNED BY: LARISSA LEMONS Jr., MD DATE: 02/03/251138 PATIENT: CHARY HERNANDEZ MR#: [id number] : 1980 SEX: M AGE: 44 LOCATION: 2CH ORDER 0432 STATUS: ADM IN REPORT#: [id number] SERVICE 5 REASON: hypoxia ORDERING PHYSICIAN: BIANCA GARCIA PROCEDURE: ECHO CMP - ECHO 2-D COMPLETE APPROVED REPORT EXAM: Two-dimensional and M-mode echocardiogram with Doppler and color Doppler. INDICATION ICD: R06.02 Shortness of breath 2D Dimensions RVDd 4.5 cm LVEF(%) 58.7 (>50%) LVED Vol(simp.) 152.0 mL IVSd 1.2 (0.7-1.1cm) FS(%) 32 % LVES Vol(simp.) 70.0 mL LVDd 6.1 (3.8-5.6cm) LA (2D) 4.0 (1.6-4.0cm) LVEF(%, simp.) 54 % PWd 0.8 (0.7-1.1cm) Ao Root(2D) 3.4 (2.0-3.7cm) LA ESV INDEX (BP) 26.38 mL/m2 IVSs 1.5 cm LVOT diam 2.7 (1.8-2.4cm) LVDs 4.1 (2.5-4.0cm) IVC diam 2.7 cm PWs 1.1 cm Deformation Strain Apical 4 -16.1 % Apical 2 -16.4 % Apical 3 -17.4 % Global Strain -16.6 % M-Mode Dimensions EPSS 0.3 cm LA (MM) 4.2 (1.6-4.0cm) Ao Root(MM) 4.0 (2.0-3.7cm) Aortic Valve AoV Vmax 1.4 m/s Ao Peak GR 7.3 mmHg LVOT Vmax 1.2 m/s AoV VTI 0.3 m Ao Mean GR 4.7 mmHg LVOT VTI 0.23 m MINH (VMAX) 5.28 cm2 MINH (VTI) 5.3 cm2 Mitral Valve MV E Vmax 88.4 cm/s DECEL Time 146 ms MV A Vmax 76.4 cm/s P 1/2 T 41 ms E/A ratio 1.2 MVA (PHT) 5.4 cm2 TDI E/E' Medial 10.2 E/E' Lateral 10.5 Medial E' Peak V 8.64 cm/s Lateral E' Peak V 8.43 cm/s Pulmonary Valve PV Vmax 0.8 m/s PV Peak GR 2.3 mmHg Tricuspid Valve TR Vmax 1.1 m/s RAP (EST) 8 mmHg RVSP 12.9 mmHg TR Peak GR 4.9 mmHg Left Ventricle The left ventricle is normal size. GLS -16.0% There is normal LV segmental wall motion. There is mild left ventricular wall thickness. LVEF is 55%. The LV diastolic function was unable to be assessed due to atrial arrhythmia. Right Ventricle The right ventricle is normal size. The right ventricular systolic function is normal. Atria The left atrium size is normal. The right atrium size is normal. Aortic Valve The aortic valve is normal in structure. No aortic regurgitation is present. There is no aortic valvular stenosis. Mitral Valve The mitral valve is normal in structure. There is trace of mitral valve regurgitation noted. There is no mitral valve stenosis. Tricuspid Valve The tricuspid valve is normal in structure. There is no tricuspid valve regurgitation noted. Pulmonic Valve The pulmonary valve is normal in structure. There is mild pulmonic valvular regurgitation. Great Vessels The aortic root is normal in size. IVC is dilated and collapses >50% with inspiration. Pericardium There is no pericardial effusion. Other Information Quality : Technically diffcult study due to body habitus Conclusion LVEF is 55%. DICTATED BY: CAROL GALLAGHER MD DATE: 01/31/25844 ELECTRONICALLY SIGNED BY: CAROL GALLAGHER MD DATE: 01/31/252052 PATIENT: CHARY HERNANDEZ MR#: [id number] : 1980 SEX: M AGE: 44 LOCATION: [facility] ORDER STATUS: ADM IN [place] REPORT#: [id number] SERVICE REASON: r/o DVT ORDERING PHYSICIAN: BIANCA GARCIA PROCEDURE: VENOUS GRACIE - US VENOUS DOPPLER BILATERAL EXAM: US for Deep Venous Thrombosis, bilateral Lower Extremity. CLINICAL HISTORY: Rule out deep venous thrombosis. TECHNIQUE: Real-time ultrasound scan of the veins of the bilateral lower extremity with color Doppler flow, spectral waveform analysis and compression. COMPARISON: None provided. FINDINGS: DEEP VEINS: The common femoral, superficial femoral, and popliteal veins are echolucent and compressible. There is normal color Doppler flow throughout. The visualized calf veins appear patent. SOFT TISSUES: No popliteal fossa cyst or other abnormalities. IMPRESSION: No deep venous thrombosis is evident on bilateral lower extremity examination. /[place] DICTATED BY: LARISSA LEMONS Jr., MD DATE: 01/31/25400 ELECTRONICALLY SIGNED BY: LARISSA LEMONS Jr., MD DATE: 01/31/25400 PATIENT: CHARY HERNANDEZ MR#: [id number] : 1980 SEX: M AGE: 44 LOCATION: 2CH ORDER STATUS: ADM IN REPORT#: [id number] SERVICE REASON: r/o P.E. ORDERING PHYSICIAN: BIANCA GARCIA PROCEDURE: CHES PE - CT CHEST PE PROTOCOL WWO CONT EXAMINATION: CT Chest, with intravenous contrast CLINICAL HISTORY: Patient presents to rule out pulmonary embolism. TECHNIQUE: Axial computed tomography images of the chest, with intravenous contrast. Multiplanar reformations were generated and reviewed. CONTRAST: With intravenous contrast. COMPARISON: None provided. FINDINGS: CHEST: LUNGS: The lungs demonstrate extensive diffuse consolidation and airspace opacities and ground-glassing throughout the bilateral lungs, predominantly involving the lower lobes and perihilar regions. No pulmonary mass. PLEURAL SPACES: No pneumothorax or pleural effusion. CARDIOVASCULAR: Cardiomegaly is present. No significant pericardial effusion. The main pulmonary artery measures 3.2 cm. The right pulmonary artery measures 2 cm. The left pulmonary artery measures 2.2 cm. The pulmonary arteries show no evidence of filling defects. Normal caliber thoracic aorta. MEDIASTINUM AND SILVINO: No mediastinal or hilar lymphadenopathy. ABDOMEN : Hepatosplenomegaly BONES: No acute or aggressive osseous abnormality. IMPRESSION: No acute pulmonary embolism. Extensive diffuse bilateral pulmonary airspace opacities, predominantly in the lower lobes and perihilar regions, consistent with pulmonary edema. Cardiomegaly with mild pulmonary arterial hypertension. Hepatosplenomegaly. /[place] DICTATED BY: LARISSA LEMONS Jr., MD DATE: 01/31/25803 ELECTRONICALLY SIGNED BY: LARISSA LEMONS Jr., MD DATE: 01/31/25803 ASSESSMENT: Hyperkalemia Acute renal failure Acute hypoxemic and hypercarbic respiratory failure now with worsening respiratory distress ARDS Community-acquired pneumonia suspected Pneumocystis Toxic metabolic encephalopathy on admission Acute sepsis on admission without septic shock secondary to community-acquired pneumonia HIV positive newly diagnosed stage IV. Not on anti-retroviral medication CD4 count: 19 Immunocompromise status Suspected TB Obstructive sleep apnea, untreated/undiagnosed Morbid obesity, BMI 33.6 Volume overload PLAN: Labs, diagnostic, radiologic exams reviewed and interpreted by myself and supervising physician. We have reviewed external records in detail There is no need for emergent renal replacement therapy at this time. Pending PRBC transfusion Continue with close monitoring of electrolytes and renal function Order CBC, CMP, and electrolytes in am Continue with antibiotics as per ID Continue mechanical ventilation and sedation IV pressors as needed Monitor blood pressure adjust medication doses as needed May use Dilaudid 0.5 mg IV every 6 hours as needed for severe pain Monitor blood sugars Strict intake, output, and daily weight should be monitored Please renally adjust medications Avoid nephrotoxic and nonsteroidal drugs Avoid contrast if possible Will continue to monitor renal function, anemia, electrolytes Treatment plan discussed with patient Questions were answered We have discussed with the other team physicians in detail about the care plan We will continue to monitor the patient closely Total critical care time spent with patient, nursing staff, critical care team over 35 minutes ATTESTATION BY PHYSICIAN I have seen and examined the patient. I reviewed the documentation, medical decision making, and treatment plan as noted by the mid-level provider above. I agree with the findings and plan of care. DARBY PORRAS MD, [facility] Feb 17, 2025 09:49
--- NOTE | 2025-02-17 12:59 | PN ---
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 01/30/25 20:00 03/01/25 19:59 02/09/25 08:28 4 MG Pantoprazole Sodium (PROTonix 40MG INJ) 40 mg DAILY IVP 02/12/25 09:00 03/14/25 08:59 02/17/25 08:25 40 MG Pharmacy Profile Note (Pharmacy Communication) 1 each ONCE MISC 02/05/25 11:30 02/05/25 11:23 DC Pharmacy Profile Note (Pharmacy Communication) 1 each ONCE MISC 02/16/25 11:00 02/16/25 11:08 DC Pharmacy Profile Note (Pharmacy Communication) 1 each ONCE MISC 02/10/25 14:00 02/10/25 14:21 DC Piperacillin Sod/ Tazobactam Sod (Zosyn 3.375gm+NS 50ml) 3.375 gm Q8H IVPB 01/31/25 09:30 01/31/25 12:56 DC 01/31/25 11:04 3.375 GM Piperacillin Sod/ Tazobactam Sod (Zosyn 3.375gm+NS 50ml) 3.375 gm ZOSY8 IVPB 01/31/25 13:00 02/01/25 13:33 DC 02/01/25 11:54 3.375 GM Polyethylene Glycol (MIRalax 3350 17 GM POWD.PACK) 17 gm DAILY PO 02/07/25 11:30 03/09/25 11:29 02/16/25 08:35 17 GM Propofol (DIPRivan 1000MG/ 100ML) 1,000 mg PROTOCOL PRN IV SEDATION 02/05/25 11:30 02/08/25 15:52 DC 02/08/25 08:29 1,000 MG Propofol (DIPRivan 1000MG/ 100ML) 1,000 mg PROTOCOL PRN IV SEDATION 02/15/25 13:30 03/17/25 13:29 02/17/25 11:59 1,000 MG Propofol (DIPRivan 1000MG/ 100ML) 1,000 mg PROTOCOL PRN IV SEDATION 02/12/25 23:30 02/15/25 13:07 DC 02/13/25 08:16 1,000 MG Raltegravir (Isentress) 400 mg BID PO 02/10/25 21:00 03/12/25 20:59 02/17/25 08:25 400 MG Silver Sulfadiazine (Silvadene) 1 APPL BID TP 02/16/25 21:00 03/18/25 20:59 02/17/25 08:25 1 GIORGI Sodium Bicarbonate 150 meq/Dextrose 1,150 ml @ 100 mls/hr [id number] IVP 02/16/25 06:30 03/18/25 06:29 02/17/25 04:12 100 MLS/HR Sodium Bicarbonate (Sodium Bicarbonate) 100 mg DAILY PO 02/14/25 12:00 02/14/25 12:35 DC Sodium Bicarbonate (Sodium Bicarb 50meq 50ml Vial) 50 meq Q8H6 IV 02/06/25 14:00 02/07/25 16:00 DC 02/07/25 14:47 50 MEQ Sodium Chloride 1,000 ml @ 100 mls/hr Q10H IV 01/30/25 20:00 01/31/25 05:38 DC 01/30/25 21:18 100 MLS/HR Sodium Chloride (NS 50ml) 50 ml AD IV 02/10/25 06:00 03/12/25 05:59 Sodium Zirconium Cyclosilicate (Lokelma 10gm Powder) 10 gm BID PO 02/09/25 12:00 02/10/25 11:59 DC 02/10/25 08:29 10 GM Sodium Zirconium Cyclosilicate (Lokelma 10gm Powder) 10 gm TID PO 02/10/25 14:00 02/11/25 13:59 DC 02/11/25 08:26 10 GM Trimethoprim/ Sulfamethoxazole 480 mg/Dextrose 500 ml @ 250 mls/hr Q6H IV 01/30/25 21:00 02/01/25 11:57 DC 02/01/25 02:49 250 MLS/HR Trimethoprim/ Sulfamethoxazole 480 mg/Dextrose 500 ml @ 250 mls/hr Q6H IV 02/01/25 12:00 02/10/25 15:05 DC 02/10/25 08:27 250 MLS/HR Trimethoprim/ Sulfamethoxazole 480 mg/Dextrose 500 ml @ 250 mls/hr Q6H IV 02/10/25 16:00 02/20/25 15:59 02/17/25 09:00 250 MLS/HR Trimethoprim/ Sulfamethoxazole / Dextrose 100 ml @ 100 mls/hr AD IV 01/30/25 20:00 02/09/25 19:59 UNV Wound Care/ Dressing Products (Venelex Ointment) BID TP 02/09/25 21:00 02/16/25 16:23 DC 02/16/25 08:36 1 GM DIAGNOSTICS / RADIOLOGY: [ ] ASSESSMENT: Acute hypoxemic respiratory failure POA 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 Acute hypoxemic respiratory failure POA Patient is currently intubated, continue on propofol and fentanyl drips. Chest x-ray on presentation showed diffuse bilateral pneumonia with ARDS type picture. CT chest on presentation showed bilateral airspace opacities involving nearly entire lung curtis raising concern for severe diffuse pneumonia/ARDS like pattern Continue Solu-Medrol 40mg IV bid DuoNeb inhalation q.4h Pulmonology on board, we will continue to follow the recommendations Suspected Pneumocystis Jirovecii Pneumonia (PJP )POA Chest x-ray on presentation showed diffuse bilateral pneumonia with ARDS type picture CT chest showed bilateral airspace opacities involving nearly entire lung curtis raising concern for severe diffuse pneumonia/ARDS like pattern Continue fluconazole 200 mg IV Q 24 , TMP SMX q.6 discontinue cefepime and start Meropenem1 g IV every 8 hours and continue on Bactrim, doxycycline and fluconazole. Pulmonology, Infectious Disease on board. We will follow their recommendations. HIV infection with AIDS as he has a CD4 count of 19 Patient had history of on unsafe sexual practices with multiple partners reported by her sister HIV1 and 2 Ab, HIV P 24 Ag evaluation showed preliminary positive for both HIV1 and 2 antigen/antibody, 4th gen preliminary reactive Absolute CD4 count 19, CD4/CD8 ratio 0.04 HIV 1RNA PCR showed a viral load of [id number] Infectious Disease started Isentress 400 mg b.i.d., travuda tablet p.o. daily on 02/10/2025 Case management working with [facility] for HIV management. ID on board. Sepsis POA On presentation to ED patient's temperature 100.2, pulse 112, respiratory rate 28, lactic acid 2, procalcitonin 1.55 Chest x-ray showed diffuse bilateral pneumonia with ARDS type picture CT chest showed bilateral airspace opacities involving nearly entire lung curtis raising concern for severe diffuse pneumonia/ARDS like pattern Continue fluconazole 200 mg IV Q 24 , TMP SMX q.6 discontinue cefepime and start Meropenem1 g IV every 8 hours and continue on Bactrim, doxycycline and fluconazole. Lactic acid today at 7.4 And then dropped to 6.5 We will trend white count, lactic acid Uncontrolled hyperglycemia secondary to steroids Blood glucose in the morning was 322 and well elevated likely from steroids. Continue to monitor the blood glucose level. Continue insulin sliding scale. Tuberculosis R/O POA 3 out of 3 sputum samples collected for AFB smear. Sputum sample is sent for respiratory culture, we will follow up with the culture results. No acid-fast bacilli in smear from first 2 samples, studies to continue. GI prophylaxis with Pepcid 20 mg IV DVT prophylaxis with heparin 5000 SQ q.12h ATTESTATION BY PHYSICIAN I have seen and examined the patient. I reviewed the documentation, medical decision making, and treatment plan as noted by the resident physician above. I agree with the findings and plan of care. Erick Kirby IV, MD, ABHINAV MD Feb 17, 2025 12:59
--- NOTE | 2025-02-17 16:38 | PN ---
PROGRESS NOTE Date of Service: Feb 17, 2025 Time of Service: 16:36 SUBJECTIVE: Patient is evaluated at bedside in room 217 for wound care follow up. Patient's mother at bedside during evaluation. Patient is currently intubated, sedated and dependent on vasopressor support Patient continues on Meropenem1 g IV every 8 hours and continue on Bactrim, doxycycline and fluconazole. REVIEW OF SYSTEMS Unable to complete patient is intubated PHYSICAL EXAM EYES: Anicteric. Pupils equal and reactive. HENT: No oral thrush seen, moist Oral mucosa NECK: Supple, no JVD or thyromegaly. LUNGS: Patient is intubated, rhonchi. CARDIOVASCULAR: S1, S2 regular. No murmur heard. ABDOMEN: Soft, non tender, bowel sounds present, no organomegaly CENTRAL NERVOUS SYSTEM: Patient is intubated SKIN: Dark discoloration noted to right heel, Dark discoloration to periwound with eschar tissue noted to sacral wound. Wound is deteriorating. LYMPHATICS: No peripheral lymphadenopathy MUSCULOSKELETAL: No joint swelling, erythema or tenderness. EXTREMITIES: No cyanosis or clubbing BACK: No deformity GENITOURINARY: No dysuria or hematuria Vital Signs (last 8hr) Date Time Temp Pulse Resp B/P (MAP) Pulse Ox O2 Delivery O2 Flow Rate FiO2 02/17/25 16:00 98.8 Ventilator 50 02/17/25 16:00 50 02/17/25 16:00 96 15 108/38 (61) 98 02/17/25 15:45 97 50 02/17/25 15:45 96 15 128/57 (80) 99 02/17/25 15:30 95 16 99 02/17/25 15:15 98 16 127/54 (78) 99 02/17/25 15:00 98 16 127/54 (78) 99 02/17/25 14:45 98 14 130/62 (84) 99 02/17/25 14:30 99 16 128/65 (86) 99 02/17/25 14:15 101 15 129/52 (77) 99 02/17/25 14:00 101 14 124/55 (78) 99 02/17/25 13:45 103 15 116/56 (76) 99 02/17/25 13:30 102 14 121/61 (81) 99 02/17/25 13:15 103 14 119/64 (82) 99 02/17/25 13:00 104 14 118/60 (79) 99 02/17/25 12:45 111 14 109/49 (69) 98 02/17/25 12:30 117 14 108/47 (67) 98 02/17/25 12:19 125 50 02/17/25 12:15 121 17 107/46 (66) 98 02/17/25 12:00 98.2 Ventilator 50 02/17/25 12:00 98 Ventilator+ 50 02/17/25 12:00 123 16 99 02/17/25 12:00 50 02/17/25 11:30 88 17 115/53 (73) 98 02/17/25 11:15 86 14 109/49 (69) 99 02/17/25 11:13 83 16 02/17/25 11:00 82 14 116/52 (73) 99 02/17/25 10:45 82 14 112/54 (73) 99 02/17/25 10:30 82 14 112/55 (74) 99 02/17/25 10:15 83 13 101/44 (63) 99 02/17/25 10:00 84 17 94/40 (58) 99 02/17/25 09:45 84 13 106/50 (68) 99 02/17/25 09:30 84 10 105/48 (67) 99 02/17/25 09:15 84 14 101/48 (65) 99 02/17/25 09:00 85 12 102/46 (64) 99 02/17/25 08:48 87 50 02/17/25 08:45 86 15 100/44 (62) 99 LABS: Laboratory: Test 02/17/25 15:30 02/17/25 15:11 02/17/25 04:21 02/16/25 08:06 Range/Units Whole Blood Glucose 209 H 70-110 MG/DL Hemoglobin 7.6 L 14.0-18.0 g/dL Hematocrit 20.1 *L 42-54 % Lactic Acid Level 11.6 H 0.8-2.5 mmol/L White Blood Count 6.2 # 4.8-10.8 K/uL Red Blood Count 2.38 L 4.50-6.20 MIL/uL Mean Corpuscular Volume 84.5 79-99 fL Mean Corpuscular Hemoglobin 28.6 27.0-33.0 pg Mean Corpuscular Hemoglobin Concent 33.8 32.0-36.0 g/dL Red Cell Distribution Width 13.6 11.0-15.5 % Platelet Count 103 L 130-400 K/uL Mean Platelet Volume 9.6 7.5-10.5 fL Nucleated Red Blood Cells 0.3 H 0.0-0.19 % Sodium Level 129 L 136-145 mmol/L Potassium Level 4.2 3.5-5.1 mmol/L Chloride Level 96 L 101-111 mmol/L Carbon Dioxide Level 17 L 21-32 mmol/L Blood Urea Nitrogen 51 H 7-18 mg/dL Creatinine 1.9 H 0.5-1.3 mg/dL Glomerular Filtration Rate Calc 45 >90 mL/min Random Glucose 175 #H 70-105 mg/dL Total Calcium 6.9 L 8.5-10.1 mg/dL Phosphorus Level 2.7 2.5-4.9 mg/dL Magnesium Level 1.90 1.80-2.40 mg/dL Total Bilirubin 0.5 0.2-1.0 mg/dL Aspartate Amino Transf (AST/SGOT) 103 H 10-37 U/L Alanine Aminotransferase (ALT/SGPT) 71 12-78 U/L Alkaline Phosphatase 93 50-136 U/L Total Protein 4.6 L 6.0-8.3 g/dL Albumin 1.4 L 3.5-5.0 g/dL Blood Gas Specimen Type Arterial Arterial Blood pH 7.245 L 7.350-7.450 Arterial Blood Partial Pressure CO2 31 L 35-48 mmHg Arterial Blood Partial Pressure O2 149.6 H 83.0-108.0 mmHg Arterial Blood HCO3 13.3 L 21.0-28.0 mmol/L Arterial Blood Oxygen Saturation 98.6 H 94.0-98.0 % Arterial Blood Base Excess -12.9 L -2.0-3.0 mmol/L Hemoglobin (Blood Gas) 8.4 L 13.5-17.5 g/dL Sodium (Blood Gas) 126 L 136-145 MMOL/L Bedside Potassium (Blood Gas) 4.5 3.4-4.5 MMOL/L Bedside Chloride (Blood Gas) 101 98-107 MMOL/L Bedside Glucose (Blood Gas) 93 65-95 MG/DL Bedside Ionized Calcium (Blood Gas) 1.10 L 1.15-1.33 MMOL/L Bedside Lactic Acid (Blood Gas) 7.36 *H 0.36-0.75 MMOL/L Blood Gas Temperature 37.0 35.5-37.0 CELSIUS Blood Gas Respiration Rate 12.0 min. Blood Gas Vent Mode AC ROOM AIR FiO2 70.0 % Blood Gas Tidal Volume 500 ml Blood Gas PEEP 5 cm H2O Blood Gas Specimen Comment RR, ANTONIA,RN Test 02/16/25 05:05 Range/Units Immature Granulocyte % (Auto) 4.6 H 0-1 % Neutrophils (%) (Auto) 90.5 H 40.0-77.0 % Lymphocytes (%) (Auto) 3.2 L 21.0-51.0 % Monocytes (%) (Auto) 1.5 L 3.0-13.0 % Eosinophils (%) (Auto) 0.0 0.0-8.0 % Basophils (%) (Auto) 0.2 0.0-5.0 % Neutrophils # (Auto) 11.1 H 1.8-7.7 K/uL Lymphocytes # (Auto) 0.4 L 1.0-4.8 K/uL Monocytes # (Auto) 0.2 0.1-1.0 K/uL Eosinophils # (Auto) 0.00 0.00-0.70 K/uL Basophils # (Auto) 0.02 0.00-0.20 K/uL Absolute Immature Granulocyte (auto 0.56 0-1 K/uL Segmented Neutrophils % 96 H 40-70 % Band Neutrophils % 1 0-2 % Lymphocytes % (Manual) 3 L 22-44 % Differential Comment MANUAL DIFFERENTIAL White Cell Morphology Comment Platelet Morphology Comment ADEQUATE Red Blood Cell Morphology HYPOCHROM CELLS 1+ DIAGNOSTICS / RADIOLOGY: [ ] PROBLEM LIST : Medical Problems: (1) ARDS (adult respiratory distress syndrome) ICD Codes: J80 - Acute respiratory distress syndrome (2) SIRS (systemic inflammatory response syndrome) ICD Codes: R65.10 - Systemic inflammatory response syndrome (SIRS) of non- infectious origin without acute organ dysfunction Pressure ulcer to sacral region, unstageable 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 Continue Wound care to sacrum: Cleanse with normal saline, pat dry, apply Silvadene BID and prn Continue Wound care to right heel : paint with Betadine daily, leave open to air, apply waffle boots. Continue Wound care to nasal bridge: paint with Betadine daily, leave open to air Waffle mattress Keep wounds clean and dry Offloading/reposition q 2 hours Continue IV antibiotics per ID Comorbidities per primary care team Further Management per hospital course. Thank You for the consult and allowing us to participate in the care of this patient. ATTESTATION BY PHYSICIAN I have seen and examined the patient. I reviewed the documentation, medical decision making, and treatment plan as noted by the mid-level provider above. I agree with the findings and plan of care. TRACI CAMARILLO MD, [facility] Feb 17, 2025 16:38 TRACI CAMARILLO MD Feb 18, 2025 13:07
--- NOTE | 2025-02-17 17:31 | PN ---
INFECTIOUS DISEASE PROGRESS NOTE Date of Service: Feb 17, 2025 SUBJECTIVE: This is a 44-year-old male patient who was seen at bedside in room 217. Patient remains intubated and sedated. Patient will be transfused 1 unit of PRBC for hemoglobin of 6.8. The WBC has trended down to 6.2 and remains a febrile. No growth reported on the repeat blood culture for the past 48 hours. We will continue on Meropenem, Bactrim, doxycycline and fluconazole. We will continue to follow patient's care. PHYSICAL EXAM EYES: Anicteric. Pupils equal and reactive. HENT: Oral thrush. NGT. NECK: Supple, no JVD or thyromegaly. LUNGS: On mechanical ventilatory support. CARDIOVASCULAR: S1, S2 regular. No murmur heard. ABDOMEN: Soft, non tender, bowel sounds present, no organomegaly. CENTRAL NERVOUS SYSTEM: Awake but Intubated. SKIN: Rash on abdomen and lower extremities now dried. LYMPHATICS: No peripheral lymphadenopathy MUSCULOSKELETAL: No joint swelling, erythema or tenderness. EXTREMITIES: No cyanosis or clubbing. Weakness. BACK: Unstageable sacral ulcer. GENITOURINARY: No dysuria or hematuria. Dias catheter. Vital Sign (Last 12 Hours) 02/17/25 02/17/25 02/17/25 02/17/25 05:30 05:45 06:00 06:15 Pulse 87 86 86 86 Resp 18 19 19 17 B/P (MAP) 108/43 (64) 111/43 (65) 107/39 (61) 109/45 (66) Pulse Ox 98 98 98 98 FiO2 50 02/17/25 02/17/25 02/17/25 02/17/25 06:30 06:33 06:37 06:45 Pulse 90 86 86 91 Resp 16 17 15 B/P (MAP) 104/39 (60) 98/41 (60) Pulse Ox 99 99 FiO2 50 02/17/25 02/17/25 02/17/25 02/17/25 07:00 07:15 07:30 07:45 Pulse 89 89 90 88 Resp 18 16 17 16 B/P (MAP) 103/42 (62) 113/43 (66) 118/46 (70) 109/51 (70) Pulse Ox 98 98 98 99 FiO2 50 02/17/25 02/17/25 02/17/25 02/17/25 08:00 08:00 08:00 08:00 Temp 97.3 97.3 Pulse 87 Resp 15 B/P (MAP) 114/50 (71) Pulse Ox 99 99 O2 Delivery Ventilator+ Ventilator FiO2 50 50 50 02/17/25 02/17/25 02/17/25 02/17/25 08:15 08:30 08:45 08:48 Pulse 88 86 86 87 Resp 19 15 15 B/P (MAP) 121/50 (73) 99/38 (58) 100/44 (62) Pulse Ox 98 98 99 FiO2 50 02/17/25 02/17/25 02/17/25 02/17/25 09:00 09:15 09:30 09:45 Pulse 85 84 84 84 Resp 12 14 10 13 B/P (MAP) 102/46 (64) 101/48 (65) 105/48 (67) 106/50 (68) Pulse Ox 99 99 99 99 02/17/25 02/17/25 02/17/25 02/17/25 10:00 10:15 10:30 10:45 Pulse 84 83 82 82 Resp 17 13 14 14 B/P (MAP) 94/40 (58) 101/44 (63) 112/55 (74) 112/54 (73) Pulse Ox 99 99 99 99 02/17/25 02/17/25 02/17/25 02/17/25 11:00 11:13 11:15 11:30 Pulse 82 83 86 88 Resp 14 16 14 17 B/P (MAP) 116/52 (73) 109/49 (69) 115/53 (73) Pulse Ox 99 99 98 02/17/25 02/17/25 02/17/25 02/17/25 12:00 12:00 12:00 12:00 Temp 98.2 Pulse 123 Resp 16 B/P (MAP) Pulse Ox 99 98 O2 Delivery Ventilator+ Ventilator FiO2 50 50 50 02/17/25 02/17/25 02/17/25 02/17/25 12:15 12:19 12:30 12:45 Pulse 121 125 117 111 Resp 17 14 14 B/P (MAP) 107/46 (66) 108/47 (67) 109/49 (69) Pulse Ox 98 98 98 FiO2 50 02/17/25 02/17/25 02/17/25 02/17/25 13:00 13:15 13:30 13:45 Pulse 104 103 102 103 Resp 14 14 14 15 B/P (MAP) 118/60 (79) 119/64 (82) 121/61 (81) 116/56 (76) Pulse Ox 99 99 99 99 02/17/25 02/17/25 02/17/25 02/17/25 14:00 14:15 14:30 14:45 Pulse 101 101 99 98 Resp 14 15 16 14 B/P (MAP) 124/55 (78) 129/52 (77) 128/65 (86) 130/62 (84) Pulse Ox 99 99 99 99 02/17/25 02/17/25 02/17/25 02/17/25 15:00 15:15 15:30 15:45 Pulse 98 98 95 96 Resp 16 16 16 15 B/P (MAP) 127/54 (78) 127/54 (78) 128/57 (80) Pulse Ox 99 99 99 99 02/17/25 02/17/25 02/17/25 02/17/25 15:45 16:00 16:00 16:00 Temp 98.8 Pulse 97 96 Resp 15 B/P (MAP) 108/38 (61) Pulse Ox 98 O2 Delivery Ventilator FiO2 50 50 50 02/17/25 02/17/25 16:00 16:15 Temp 98.8 Pulse 95 Resp 14 B/P (MAP) 107/47 (67) Pulse Ox 99 98 O2 Delivery Ventilator+ FiO2 50 Intake & Output (last 24hrs) 02/16/25 02/16/25 02/17/25 15:00 23:00 07:00 Intake Total 284.6 ml 1972.0 ml 2856.1 ml Output Total 1850 ml 4000 ml Balance 284.6 ml 122.0 ml -1143.9 ml LABS: Laboratory: Test 02/17/25 15:30 02/17/25 15:11 02/17/25 04:21 02/16/25 08:06 Range/Units Whole Blood Glucose 209 H 70-110 MG/DL Hemoglobin 7.6 L 14.0-18.0 g/dL Hematocrit 20.1 *L 42-54 % Lactic Acid Level 11.6 H 0.8-2.5 mmol/L White Blood Count 6.2 # 4.8-10.8 K/uL Red Blood Count 2.38 L 4.50-6.20 MIL/uL Mean Corpuscular Volume 84.5 79-99 fL Mean Corpuscular Hemoglobin 28.6 27.0-33.0 pg Mean Corpuscular Hemoglobin Concent 33.8 32.0-36.0 g/dL Red Cell Distribution Width 13.6 11.0-15.5 % Platelet Count 103 L 130-400 K/uL Mean Platelet Volume 9.6 7.5-10.5 fL Nucleated Red Blood Cells 0.3 H 0.0-0.19 % Sodium Level 129 L 136-145 mmol/L Potassium Level 4.2 3.5-5.1 mmol/L Chloride Level 96 L 101-111 mmol/L Carbon Dioxide Level 17 L 21-32 mmol/L Blood Urea Nitrogen 51 H 7-18 mg/dL Creatinine 1.9 H 0.5-1.3 mg/dL Glomerular Filtration Rate Calc 45 >90 mL/min Random Glucose 175 #H 70-105 mg/dL Total Calcium 6.9 L 8.5-10.1 mg/dL Phosphorus Level 2.7 2.5-4.9 mg/dL Magnesium Level 1.90 1.80-2.40 mg/dL Total Bilirubin 0.5 0.2-1.0 mg/dL Aspartate Amino Transf (AST/SGOT) 103 H 10-37 U/L Alanine Aminotransferase (ALT/SGPT) 71 12-78 U/L Alkaline Phosphatase 93 50-136 U/L Total Protein 4.6 L 6.0-8.3 g/dL Albumin 1.4 L 3.5-5.0 g/dL Blood Gas Specimen Type Arterial Arterial Blood pH 7.245 L 7.350-7.450 Arterial Blood Partial Pressure CO2 31 L 35-48 mmHg Arterial Blood Partial Pressure O2 149.6 H 83.0-108.0 mmHg Arterial Blood HCO3 13.3 L 21.0-28.0 mmol/L Arterial Blood Oxygen Saturation 98.6 H 94.0-98.0 % Arterial Blood Base Excess -12.9 L -2.0-3.0 mmol/L Hemoglobin (Blood Gas) 8.4 L 13.5-17.5 g/dL Sodium (Blood Gas) 126 L 136-145 MMOL/L Bedside Potassium (Blood Gas) 4.5 3.4-4.5 MMOL/L Bedside Chloride (Blood Gas) 101 98-107 MMOL/L Bedside Glucose (Blood Gas) 93 65-95 MG/DL Bedside Ionized Calcium (Blood Gas) 1.10 L 1.15-1.33 MMOL/L Bedside Lactic Acid (Blood Gas) 7.36 *H 0.36-0.75 MMOL/L Blood Gas Temperature 37.0 35.5-37.0 CELSIUS Blood Gas Respiration Rate 12.0 min. Blood Gas Vent Mode AC ROOM AIR FiO2 70.0 % Blood Gas Tidal Volume 500 ml Blood Gas PEEP 5 cm H2O Blood Gas Specimen Comment ANTONIA DOUGLASRN Test 02/16/25 05:05 Range/Units Immature Granulocyte % (Auto) 4.6 H 0-1 % Neutrophils (%) (Auto) 90.5 H 40.0-77.0 % Lymphocytes (%) (Auto) 3.2 L 21.0-51.0 % Monocytes (%) (Auto) 1.5 L 3.0-13.0 % Eosinophils (%) (Auto) 0.0 0.0-8.0 % Basophils (%) (Auto) 0.2 0.0-5.0 % Neutrophils # (Auto) 11.1 H 1.8-7.7 K/uL Lymphocytes # (Auto) 0.4 L 1.0-4.8 K/uL Monocytes # (Auto) 0.2 0.1-1.0 K/uL Eosinophils # (Auto) 0.00 0.00-0.70 K/uL Basophils # (Auto) 0.02 0.00-0.20 K/uL Absolute Immature Granulocyte (auto 0.56 0-1 K/uL Segmented Neutrophils % 96 H 40-70 % Band Neutrophils % 1 0-2 % Lymphocytes % (Manual) 3 L 22-44 % Differential Comment MANUAL DIFFERENTIAL White Cell Morphology Comment Platelet Morphology Comment ADEQUATE Red Blood Cell Morphology HYPOCHROM CELLS 1+ ASSESSMENT: Acute hypoxic and hypercapnic respiratory failure, s/p intubation. Multifocal pneumonia. Staphylococcus epidermidis bacteremia, possible a contaminant. Unstageable sacral wound. Suspected advanced stage HIV, not on anti-retroviral therapy, POA. Suspected Pneumocystis pneumonia, ruled out. Sepsis. Anemia requiring blood transfusion. Acute renal failure. Oral candidiasis. Morbid obesity. PLAN: Continue Meropenem. Continue Bactrim IV. Continue fluconazole IV. Continue doxycycline IV. Continue on Truvada and Raltegravir. Continue GI prophylaxis. Continues on mechanical ventilatory support. Continue critical care support. Pending 1 unit of PRBC transfusion. Continue wound care. This case was reviewed and discussed with my supervising physician Dr. Sigala and the above assessment and plan was formulated and agreed upon. ATTESTATION BY PHYSICIAN I have seen and examined the patient. I reviewed the documentation, medical de cision making, and treatment plan as noted by the mid-level provider above. I agree with the findings and plan of care. MIRZA SIGALA MD, [facility] Feb 17, 2025 17:31
--- NOTE | 2025-02-17 20:53 | NUR ---
Patient received on vent, settings of AC, R12, 500, +5 50% ETT size 8.0 secured at 28cm at the lip.
--- NOTE | 2025-02-17 23:21 | HMCIMG ---
EXAM: CR Chest, 1 View. CLINICAL HISTORY: Pneumonia. COMPARISON: February 15, 2025. FINDINGS: LUNGS: Stable mild cardiomegaly, non-homogeneous haziness in bilateral lower lung zones with possible mild left pleural effusion, possibly representing changes of cardiac congestion. BONES: No acute osseous abnormality. IMPRESSION: Stable mild cardiomegaly, non-homogeneous haziness in bilateral lower lung zones with possible mild left pleural effusion, possibly representing changes of cardiac congestion. /[place]
[2025-02-18] VITALS (107 sets, daily range): BP systolic 97–139; BP diastolic 37–64; PULSE 85–115; RESP 12–99; TEMP 96.2–97.5; O2SAT 95–99
--- NOTE | 2025-02-18 02:37 | NUR ---
correction on ETT placement. ETT is at 26cm
[2025-02-18 05:06] LABS: IMMATURE GRANULOCYTE ABSOLUTE 0.27 K/uL (0-1); NUCLEATED RED BLOOD CELLS 0.4 % (0.0-0.19); PLATELET COUNT (AUTO) 89 K/uL (130-400); RED BLOOD CELL COUNT(AUTO) 2.55 MIL/uL (4.50-6.20); RED CELL DISTRIBUTION WIDTH 14.3 % (11.0-15.5); WHITE BLOOD COUNT (AUTO) 4.8 K/uL (4.8-10.8)
[2025-02-18 05:39] LABS: ASPARTATE AMINOTRANSFERASE 113.0 U/L (10-37); CREATININE 2.0 mg/dL (0.5-1.3); GLOMERULAR FILTR. RATE CALC 42.0 mL/min (>90); GLUCOSE,RANDOM 159.0 mg/dL (70-105); SODIUM SERUM 134.0 mmol/L (136-145); TOTAL PROTEIN, SERUM 4.6 g/dL (6.0-8.3); UREA NITROGEN, BLOOD 47.0 mg/dL (7-18)
[2025-02-18 05:41] LABS: BAND NEUTROPHILS % (MANUAL) 3 % (0-2); LYMPHOCYTES % (MANUAL) 3 % (22-44); MAN.DIFF COMMENT-IMPRESSION MANUAL DIFFERENTIAL; MONOCYTES % (MANUAL) 1 % (2-9); MYELOCYTES % 1 % (0-0); PLATELET MORPHOLOGY COMMENT DECREASED; REACTIVE LYMPHOCYTES 1 % (0-0); SEGMENTED NEUTROPHILS % 91 % (40-70)
[2025-02-18 07:53] LABS: ABG BASE EXCESS -19.7 mmol/L (-2.0-3.0); ABG HCO3 9.4 mmol/L (21.0-28.0); ABG OXYGEN SATURATION 92.6 % (94.0-98.0); ABG PCO2 33 mmHg (35-48); PO2, ARTERIAL BG 86.9 mmHg (83.0-108.0); TEMPERATURE, CELSIUS BG 37.0 CELSIUS (35.5-37.0); VENT MODE, BG AC (ROOM AIR)
[2025-02-18 07:56] LABS: ABG PH 7.073 (7.350-7.450)
[2025-02-18] MEDS: SODIUM BICARB 50MEQ 50ML VIAL IV ONE (08:48)
--- NOTE | 2025-02-18 10:38 | PN ---
NEPHROLOGY PROGRESS NOTE Date/Time Patient Seen: Feb 18, 2025 SUBJECTIVE: This is a 44-year-old male with HIV positive newly diagnosed He was brought by EMS to the ED for complaints of shortness of breaths for the past two weeks. He has been in the hospital for several days He continues on antibiotics, including Bactrim, as per ID. He was noted to have elevated BUN/creatinine We are consulted for renal failure Renal function and electrolytes are stable Hemoglobin was noted He was seen in the ICU, Continues to be intubated and sedated Family at the bedside Prognosis remains guarded REVIEW OF SYSTEMS: Difficult to obtain given status of the patient who remains intubated mechanically ventilated Vital Signs (last 8hr) Date Time Temp Pulse Resp B/P (MAP) Pulse Ox O2 Delivery O2 Flow Rate FiO2 02/18/25 09:26 91 50 02/18/25 06:53 105 19 133/54 95 Ventilator 50 02/18/25 06:38 103 14 132/55 96 Ventilator 50 02/18/25 06:23 86 12 02/18/25 06:23 102 14 139/64 96 Ventilator 50 02/18/25 06:19 86 50 02/18/25 06:08 90 14 109/50 98 Ventilator 50 02/18/25 05:53 85 17 122/52 99 Ventilator 50 02/18/25 05:38 86 17 118/55 99 Ventilator 50 02/18/25 05:23 85 14 109/46 99 Ventilator 50 02/18/25 05:08 85 14 109/46 99 Ventilator 50 02/18/25 04:53 85 17 103/44 99 Ventilator 50 02/18/25 04:38 85 18 105/45 99 Ventilator 50 02/18/25 04:09 99 Ventilator+ 50 02/18/25 04:08 96.3 86 17 115/43 99 Ventilator 50 02/18/25 04:00 50 02/18/25 03:53 86 17 108/42 99 Ventilator 50 02/18/25 03:38 86 24 104/52 99 Ventilator 50 02/18/25 03:23 86 21 104/47 99 Ventilator 50 02/18/25 03:13 88 50 02/18/25 03:08 86 14 107/45 99 Ventilator 50 02/18/25 02:53 86 19 107/45 98 Ventilator 50 PHYSICAL EXAM: General: acutely ill, sedated, intubated, and mechanically ventilated HEENT: head is atraumatic, pupils equal and reactive, ET tube in place Neck: supple, no masses, no lymphadenopathy, no thyromegaly, no JVD Lungs: decreased breath sounds bilaterally, symmetrical chest movement Cardio: regular rate, S1 and S2 normal, no rub or gallop Abdomen: soft, non tender, no distension, no organomegaly Extremities: trace edema bilateral lower extremities, no cyanosis or clubbing Skin: no rashes or suspicious lesions Neuro: sedated Current Medications Medications (Trade) Dose Ordered Sig/Amada Route Start Time Stop Time Status Last Admin Dose Admin Albuterol (DUOneb) 1 udvial [id number] IH 01/30/25 22:00 03/01/25 21:59 02/09/25 10:30 1 UDVIAL Cefepime HCl (MAXipime 2 gm vial) 2 gm Q12H IVPB 02/01/25 14:00 02/11/25 13:59 02/09/25 01:56 2 GM Dexmedetomidine/ Sodium Chloride (PRECEdex 400MCG/ 100ML-NS) 400 mcg PROTOCOL IV 02/04/25 23:45 03/06/25 23:44 02/09/25 05:56 400 MCG Doxycycline Hyclate 250 ml @ 125 mls/hr Q12H IV 01/31/25 14:00 02/10/25 13:59 02/09/25 01:56 125 MLS/HR Famotidine (Pepcid 20mg Vial) 20 mg DAILY IV 01/31/25 09:00 03/02/25 08:59 02/09/25 08:28 20 MG Fentanyl Citrate 100 ml @ 2.5 mls/hr PROTOCOL IV 02/05/25 11:30 02/05/25 19:59 DC 02/05/25 17:13 2.5 MLS/HR Fentanyl/Sodium Chloride 250 ml @ 0.1 mls/hr PROTOCOL IV 02/05/25 20:00 02/08/25 15:52 DC 02/07/25 22:11 0.1 MLS/HR Fluconazole/ Sodium Chloride (DiFLUCan 200 MG/ NS 100 ML) 200 mg DAILY22 IV 02/02/25 22:00 03/01/25 17:59 02/08/25 23:07 200 MG Fluconazole/ Sodium Chloride (DiFLUCan 200 MG/ NS 100 ML) 200 mg Q24H IV 01/30/25 18:00 02/02/25 14:38 DC 02/01/25 18:17 200 MG Furosemide (LASix 20MG VIAL) 20 mg Q8H IV 02/06/25 16:00 03/08/25 15:59 02/09/25 08:02 20 MG Furosemide (LASix 40MG VIAL) 20 mg ONCE STAT IV 01/31/25 05:37 01/31/25 05:40 DC 01/31/25 05:45 20 MG Heparin Sodium (Porcine) (HEParin 5,000 UNIT VIAL) 5,000 unit Q12H SQ 01/31/25 09:00 03/02/25 08:59 02/09/25 08:47 5,000 UNIT Insulin Glargine (LANtus 100 UNITS/ML 10 ML VIAL) 20 units BID SQ 02/04/25 21:00 02/06/25 14:49 DC 02/06/25 10:03 20 UNITS Insulin Glargine (LANtus 100 UNITS/ML 10 ML VIAL) 30 units BID SQ 02/06/25 21:00 03/08/25 20:59 02/09/25 08:36 30 UNITS Insulin Human Regular (humuLIN R 100 UNIT/ML 3ML) INSULIN SLIDING SCAL... ACHS SQ 02/07/25 16:30 02/07/25 11:56 DC Insulin Human Regular (humuLIN R 100 UNIT/ML 3ML) INSULIN SLIDING SCAL... Q6H6 SQ 01/31/25 06:00 02/07/25 11:55 DC 02/07/25 06:03 5 UNIT Insulin Human Regular (humuLIN R 100 UNIT/ML 3ML) INSULIN SLIDING SCAL... Q6H6 SQ 02/07/25 12:00 03/09/25 11:59 02/08/25 18:27 4 UNIT Methylprednisolone Sodium Succinate (Solu-medROL 40MG) 40 mg BID IVP 01/30/25 21:00 01/31/25 04:16 DC 01/30/25 21:18 40 MG Methylprednisolone Sodium Succinate (Solu-medROL 40MG) 40 mg BID IVP 02/07/25 21:00 03/09/25 20:59 02/09/25 08:28 40 MG Methylprednisolone Sodium Succinate (Solu-medROL 40MG) 40 mg Q8H IVP 01/31/25 04:30 02/02/25 11:57 DC 02/02/25 11:47 40 MG Methylprednisolone Sodium Succinate (Solu-medROL 40MG) 60 mg Q6H IVP 02/02/25 12:00 02/07/25 15:17 DC 02/07/25 11:27 60 MG Metoclopramide HCl (regLAN 10MG IV) 10 mg Q8H IVP 02/06/25 16:00 03/08/25 15:59 02/09/25 08:02 10 MG Morphine Sulfate (morPHINE 2MG SYG) 2 mg ONCE STAT IVP 01/31/25 05:41 01/31/25 05:45 DC 01/31/25 05:51 2 MG Multi-Ingred Cream/Lotion/Oil/ Oint (Artificial Tears Eye Oint) Apply ointment to both e... Q4H OU 01/31/25 15:00 03/02/25 14:59 02/09/25 06:37 1 APPL Norepinephrine Bitartrate (Norepineph 16 Mg/250ml NS Premix) sbp>90 PROTOCOL IV 02/05/25 11:30 03/07/25 11:29 Pharmacy Profile Note (Pharmacy Communication) 1 each ONCE MISC 02/05/25 11:30 02/05/25 11:23 DC Piperacillin Sod/ Tazobactam Sod (Zosyn 3.375gm+NS 50ml) 3.375 gm Q8H IVPB 01/31/25 09:30 01/31/25 12:56 DC 01/31/25 11:04 3.375 GM Piperacillin Sod/ Tazobactam Sod (Zosyn 3.375gm+NS 50ml) 3.375 gm ZOSY8 IVPB 01/31/25 13:00 02/01/25 13:33 DC 02/01/25 11:54 3.375 GM Polyethylene Glycol (MIRalax 3350 17 GM POWD.PACK) 17 gm DAILY PO 02/07/25 11:30 03/09/25 11:29 02/09/25 08:28 17 GM Sodium Bicarbonate (Sodium Bicarb 50meq 50ml Vial) 50 meq Q8H6 IV 02/06/25 14:00 02/07/25 16:00 DC 02/07/25 14:47 50 MEQ Sodium Chloride 1,000 ml @ 100 mls/hr Q10H IV 01/30/25 20:00 01/31/25 05:38 DC 01/30/25 21:18 100 MLS/HR Sodium Zirconium Cyclosilicate (Lokelma 10gm Powder) 10 gm BID PO 02/09/25 12:00 02/10/25 11:59 02/09/25 12:26 10 GM Trimethoprim/ Sulfamethoxazole 480 mg/Dextrose 500 ml @ 250 mls/hr Q6H IV 01/30/25 21:00 02/01/25 11:57 DC 02/01/25 02:49 250 MLS/HR Trimethoprim/ Sulfamethoxazole 480 mg/Dextrose 500 ml @ 250 mls/hr Q6H IV 02/01/25 12:00 02/11/25 11:59 02/09/25 12:21 250 MLS/HR Trimethoprim/ Sulfamethoxazole / Dextrose 100 ml @ 100 mls/hr AD IV 01/30/25 20:00 02/09/25 19:59 UNV Wound Care/ Dressing Products (Venelex Ointment) BID TP 02/09/25 21:00 03/11/25 20:59 LABORATORY: [ ] Hematology Labs: Test 02/18/25 04:55 Range/Units White Blood Count 4.8 4.8-10.8 K/uL Red Blood Count 2.55 L 4.50-6.20 MIL/uL Hemoglobin 7.4 L 14.0-18.0 g/dL Hematocrit 21.8 L 42-54 % Mean Corpuscular Volume 85.5 79-99 fL Mean Corpuscular Hemoglobin 29.0 27.0-33.0 pg Mean Corpuscular Hemoglobin Concent 33.9 32.0-36.0 g/dL Red Cell Distribution Width 14.3 11.0-15.5 % Platelet Count 89 L 130-400 K/uL Mean Platelet Volume 9.4 7.5-10.5 fL Immature Granulocyte % (Auto) 5.6 H 0-1 % Neutrophils (%) (Auto) 91.3 H 40.0-77.0 % Lymphocytes (%) (Auto) 2.1 L 21.0-51.0 % Monocytes (%) (Auto) 1.0 L 3.0-13.0 % Eosinophils (%) (Auto) 0.0 0.0-8.0 % Basophils (%) (Auto) 0.0 0.0-5.0 % Neutrophils # (Auto) 4.4 1.8-7.7 K/uL Lymphocytes # (Auto) 0.1 L 1.0-4.8 K/uL Monocytes # (Auto) 0.1 0.1-1.0 K/uL Eosinophils # (Auto) 0.00 0.00-0.70 K/uL Basophils # (Auto) 0.00 0.00-0.20 K/uL Absolute Immature Granulocyte (auto 0.27 0-1 K/uL Segmented Neutrophils % 91 H 40-70 % Band Neutrophils % 3 H 0-2 % Lymphocytes % (Manual) 3 L 22-44 % Monocytes % (Manual) 1 L 2-9 % Myelocytes % 1 H 0-0 % Nucleated Red Blood Cells 0.4 H 0.0-0.19 % Differential Comment MANUAL DIFFERENTIAL Reactive Lymphocytes 1 H 0-0 % White Cell Morphology Comment See comments Platelet Morphology Comment DECREASED Red Blood Cell Morphology ANISO 1+ Chemistry Labs: Test 02/18/25 09:55 02/18/25 09:03 02/18/25 04:55 02/17/25 04:21 Range/Units Lactic Acid Level 18.9 H 0.8-2.5 mmol/L Whole Blood Glucose 164 H 70-110 MG/DL Sodium Level 134 L 136-145 mmol/L Potassium Level 4.2 3.5-5.1 mmol/L Chloride Level 99 L 101-111 mmol/L Carbon Dioxide Level 10 *L 21-32 mmol/L Blood Urea Nitrogen 47 H 7-18 mg/dL Creatinine 2.0 H 0.5-1.3 mg/dL Glomerular Filtration Rate Calc 42 >90 mL/min Random Glucose 159 H 70-105 mg/dL Total Calcium 7.2 L 8.5-10.1 mg/dL Total Bilirubin 0.5 0.2-1.0 mg/dL Aspartate Amino Transf (AST/SGOT) 113 H 10-37 U/L Alanine Aminotransferase (ALT/SGPT) 88 H 12-78 U/L Alkaline Phosphatase 96 50-136 U/L Total Protein 4.6 L 6.0-8.3 g/dL Albumin 1.5 L 3.5-5.0 g/dL Phosphorus Level 2.7 2.5-4.9 mg/dL Magnesium Level 1.90 1.80-2.40 mg/dL DIAGNOSTICS / RADIOLOGY: [address] [id number] IMAGING REPORT Signed PATIENT: CHARY HERNANDEZ MR#: [id number] : 1980 SEX: M AGE: 44 LOCATION: [facility] ORDER 2300 STATUS: ADM IN REPORT#: [id number] SERVICE 06 REASON: Pneumonia ORDERING PHYSICIAN: DAVEY MANRIQUE MD PROCEDURE: CXR1VW - CHEST 1VW EXAM: CR Chest, 1 View. CLINICAL HISTORY: Pneumonia. COMPARISON: February 15, 2025. FINDINGS: LUNGS: Stable mild cardiomegaly, non-homogeneous haziness in bilateral lower lung zones with possible mild left pleural effusion, possibly representing changes of cardiac congestion. BONES: No acute osseous abnormality. IMPRESSION: Stable mild cardiomegaly, non-homogeneous haziness in bilateral lower lung zones with possible mild left pleural effusion, possibly representing changes of cardiac congestion. /[place] DICTATED BY: LARISSA LEMONS Jr., MD DATE: 02/18/2520 ELECTRONICALLY SIGNED BY: LARISSA LEMONS Jr., MD DATE: 02/18/2520 PATIENT: CHARY HERNANDEZ MR#: [id number] : 1980 SEX: M AGE: 44 LOCATION: [facility] ORDER 2326 STATUS: ADM IN REPORT#: [id number] SERVICE 9 REASON: pneumonia ORDERING PHYSICIAN: DAVEY MANRIQUE MD PROCEDURE: CXR1VW - CHEST 1VW EXAM: CR Chest, 1 View. CLINICAL HISTORY: pneumonia COMPARISON: 02/15/2025 FINDINGS: The endotracheal tube with its tip 6 cm away from the catina. The right PICC line tip overlying the SVC. The nasogastric catheter is seen up to the proximal stomach. LUNGS: The lungs appear essentially clear apart from bibasilar atelectasis. No new lung infiltrates or consolidation. PLEURAL SPACES: No evidence of pleural effusion or pneumothorax. MEDIASTINUM: Cardiac size is stable. Slight interval improvement in mild pulmonary congestion. BONES: No acute osseous abnormality. IMPRESSION: Mild pulmonary congestion, slightly improved. No new lung infiltrates or consolidation. Endotracheal tube tip 6 cm from the catina. /[place] DICTATED BY: LARISSA LEMONS Jr., MD DATE: 02/16/251128 ELECTRONICALLY SIGNED BY: LARISSA LEMONS Jr., MD DATE: 02/16/251128 PATIENT: CHARY HERNANDEZ MR#: [id number] : 1980 SEX: M AGE: 44 LOCATION: [facility] ORDER 1 STATUS: ADM IN REPORT#: [id number] SERVICE 0850 REASON: Pneumonia ORDERING PHYSICIAN: ASHA JOHNSON MD PROCEDURE: CXR1VW - CHEST 1VW EXAM: CR CHEST, 1 VIEW CLINICAL HISTORY: RESP FAILURE COMPARISON: Previous study dated 02/14/2025 TECHNIQUE: Single frontal radiograph of the chest was obtained. The study is performed in semi-erect position. FINDINGS: Lines/Devices: The endotracheal tube with its tip 5 cm away from the catina. The right PICC line tip overlying the SVC. The nasogastric catheter is seen up to the proximal stomach. Lungs: The lungs appear essentially clear apart from bibasilar atelectasis. No consolidation or ground-glass opacities are observed. Mild pulmonary congestion is seen similar compared to prior exam. Pleural Spaces: No definite pleural effusion or pneumothorax. Mediastinum and cardiovascular structures: Cardiac size is stable. There are calcific atherosclerotic plaques in the aorta. The central airway and mediastinal contours are unremarkable. Bones and soft tissues: No acute osseous abnormality. Soft tissues are unremarkable. IMPRESSION: Compared to previous study dated 02/14/2025; the current study shows: 1. Mild pulmonary congestion is seen similar compared to prior exam. Mild stable bibasilar atelectasis. 2. No appreciable time interval changes with stable findings since last study. /[place] DICTATED BY: LEXX GRIGGS MD DATE: 02/16/2527 ELECTRONICALLY SIGNED BY: LEXX GRIGGS MD DATE: 02/16/2527 PATIENT: CHARY HERNANDEZ MR#: [id number] : 1980 SEX: M AGE: 44 LOCATION: [facility] ORDER 3 STATUS: ADM IN REPORT#: [id number] SERVICE 8 REASON: Ultrasound of liver ORDERING PHYSICIAN: TIFFANI HIRSCH MD PROCEDURE: ABDRUQLTD - US ABDOMINAL RUQ\LTD EXAMINATION: ULTRASOUND OF THE ABDOMEN (LIMITED) WITH COLOR DOPPLER. CLINICAL HISTORY: To evaluate liver. COMPARISON: None. TECHNIQUE: Real-time grayscale ultrasound images of the abdomen. In addition, color Doppler is medically necessary to perform in order to evaluate vascularity and blood flow. FINDINGS: Liver: Normal in caliber, the right hepatic lobe measures 15.9 cm in the craniocaudal dimension. There is increased echogenicity of the hepatic parenchyma. There is no focal hepatic abnormality or intrahepatic biliary ductal dilatation. There is normal spectral Doppler of the main portal vein. The left lobe is not well visualized. Gallbladder: Within normal limits with normal wall thickness (0.17 cm). No hyperemia or pericholecystic free fluid. There is no cholelithiasis. Common bile duct is normal in caliber, measuring 0.45 cm. Pancreas: Normal in caliber and echotexture. No calcification or dilated pancreatic duct. The right kidney is normal in caliber, the right kidney measures 13.9 x 6.5 x 7.0 cm in craniocaudal, AP, and transverse dimensions respectively. There is normal renal cortical thickness, and cortical echogenicity. There is no renal calculus or hydronephrosis. IMPRESSION:Hepatic steatosis. /[place] DICTATED BY: LARISSA LEMONS Jr., MD DATE: 02/16/2514 ELECTRONICALLY SIGNED BY: LARISSA LEMONS Jr., MD DATE: 02/16/2514 PATIENT: CHARY HERNANDEZ MR#: [id number] : 1980 SEX: M AGE: 44 LOCATION: [facility] ORDER 2300 STATUS: ADM IN REPORT#: [id number] SERVICE 06 REASON: RESP FAILURE ORDERING PHYSICIAN: EDDIE CLARK MD PROCEDURE: CXR1VW - CHEST 1VW EXAM: CR Chest, 2 View. CLINICAL HISTORY: RESP FAILURE COMPARISON: 02/13/2025; 19:51 EST FINDINGS: The endotracheal tube with its tip 5 cm away from the catina. The right PICC line tip overlying the SVC The nasogastric catheter is seen up to the proximal stomach. LUNGS: The lungs appear essentially clear apart from bibasilar atelectasis. PLEURAL SPACES: No definite pleural effusion or pneumothorax. MEDIASTINUM: Cardiac size is stable. BONES: No acute osseous abnormality. IMPRESSION: 1. No acute cardiopulmonary findings. Mild stable bibasilar atelectasis. 2. Endotracheal tube tip 5 cm from catina. 3. Right PICC line tip overlying SVC. 4. Nasogastric catheter to the proximal stomach. /[place] DICTATED BY: LARISSA LEMONS Jr., MD DATE: 02/15/252358 ELECTRONICALLY SIGNED BY: LARISSA LEMONS Jr., MD DATE: 02/15/252358 PATIENT: CHARY HERNANDEZ MR#: [id number] : 1980 SEX: M AGE: 44 LOCATION: [facility] ORDER 37 STATUS: ADM IN REPORT#: [id number] SERVICE 35 REASON: ET Tube Advanced ORDERING PHYSICIAN: BIANCA WICK PROCEDURE: CXR1VW - CHEST 1VW EXAM: CR Chest, 1 View. CLINICAL HISTORY: ET Tube Advanced COMPARISON: 02/13/2025; 5:04 EST FINDINGS: The endotracheal tube with its tip 5.2 cm away from the catina. The right PICC line tip overlying the SVC The nasogastric catheter is seen up to the proximal stomach. LUNGS: Essentially stable appearance of bilateral lung curtis. PLEURAL SPACES: No pleural effusion or pneumothorax. MEDIASTINUM: Cardiac size is stable. BONES: No aggressive appearing osseous lesion seen. IMPRESSION: 1. Endotracheal tube tip 5.2 cm from catina. 2. Right PICC line tip overlying SVC. 3. Nasogastric tube in the proximal stomach. 4. Essentially stable appearance of bilateral lung curtis. /[place] DICTATED BY: LARISSA LEMONS Jr., MD DATE: 02/14/25720 ELECTRONICALLY SIGNED BY: LARISSA LEMONS Jr., MD DATE: 02/14/25720 PATIENT: CHARY HERNANDEZ MR#: [id number] : 1980 SEX: M AGE: 44 LOCATION: [facility] ORDER 230 STATUS: ADM IN REPORT#: [id number] SERVICE 06 REASON: pneumonia ORDERING PHYSICIAN: NETO STARR PROCEDURE: CXR1VW - CHEST 1VW EXAM: CR Chest, 1 View. CLINICAL HISTORY: pneumonia COMPARISON: 02/12/2025 FINDINGS: The right PICC line tip overlying the SVC Endotracheal tube with its tip 3.9 cm short of the catina. The nasogastric catheter is seen up to the proximal stomach. LUNGS: Interval improvement in the bilateral lung aeration, with an interval decrease in the left lower zone infiltrates. PLEURAL SPACES: No evidence of pleural effusion or pneumothorax. MEDIASTINUM: Cardiac size is stable. BONES: No acute osseous abnormality. IMPRESSION: 1. Interval improvement in bilateral lung aeration, with decreased left lower zone infiltrates. 2. Right PICC line tip overlying the SVC, endotracheal tube tip 3.9 cm proximal to the catina, and nasogastric catheter tip in the proximal gastric body. /[place] DICTATED BY: LARISSA LEMONS Jr., MD DATE: 02/13/251717 ELECTRONICALLY SIGNED BY: LARISSA LEMONS Jr., MD DATE: 02/13/251717 PATIENT: CHARY HERNANDEZ MR#: [id number] : 1980 SEX: M AGE: 44 LOCATION: [facility] ORDER 230 STATUS: ADM IN REPORT#: [id number] SERVICE 0600 REASON: PNEUMONIA ORDERING PHYSICIAN: NETO STARR PROCEDURE: CXR1VW - CHEST 1VW EXAM: CR CHEST, 1 VIEW CLINICAL HISTORY: pneumonia, Endotracheal tube placement. COMPARISON: CR: CHEST 1VW dated 02/11/2025 3:36 PRINT PRODUCTION MANAGER TECHNIQUE: Single frontal radiograph of the chest was obtained. Mild patient's rotation during the image acquisition is present. FINDINGS: Lines/Devices: Right sided PICC line with its tip overlying the proximal superior vena cava. Endotracheal tube with its tip 5 cm short of catina. Nasogastric catheter with its tip overlying the stomach in the region of the proximal gastric body. Lungs: Almost stationary degree of pulmonary parenchymal congestion on left side, being mild. Persistent left lower lobar lung infiltrates, which may represent atelectasis/consolidation. No right sided pleural effusion. Mild left sided pleural effusion causing opacification of the left hemithorax. There is no pneumothorax. Mediastinum and cardiovascular structures: Moderate cardiomegaly. There are calcific atherosclerotic plaques in the aorta. The central airway and mediastinal contours are unremarkable. Bones and soft tissues: Unremarkable. IMPRESSION: In comparison with the previous chest radiograph dated February 11, 2025, the current radiograph demonstrates: 1. Mild left sided pleural effusion causing opacification of the left hemithorax. Persistent left lower lobar lung infiltrates, which may represent atelectasis/consolidation. 2. Stable endotracheal tube, the right sided PICC line and the nasogastric catheter. 3. Stationary degree of pulmonary parenchymal congestion. /[place] DICTATED BY: LEXX GRIGGS MD DATE: 02/13/2551 ELECTRONICALLY SIGNED BY: LEXX GRIGGS MD DATE: 02/13/2551 PATIENT: CHARY HERNANDEZ MR#: [id number] : 1980 SEX: M AGE: 44 LOCATION: [facility] ORDER 99 STATUS: ADM IN REPORT#: [id number] SERVICE 06 REASON: pp ORDERING PHYSICIAN: BIANCA WICK PAC PROCEDURE: CXR1VW - CHEST 1VW EXAM: CR CHEST, 1 VIEW CLINICAL HISTORY: Endotracheal tube placement. COMPARISON: None provided TECHNIQUE: Single frontal radiograph of the chest was obtained. Gross patient's rotation during the image acquisition is present. FINDINGS: Lines/Devices: Right sided PICC line with its tip overlying the proximal superior vena cava. Endotracheal tube with its tip 5.3 cm short of catina. Nasogastric catheter with its tip overlying the stomach in the region of the proximal gastric body. Lungs: Interval reduction in the degree of pulmonary parenchymal congestion with clearing of the infiltrates from the right lung. Persistent left lower lobar lung infiltrates, which may represent atelectasis/consolidation. No right sided pleural effusion. Moderate sized left sided pleural effusion causing opacification of the left hemithorax. There is no pneumothorax. Mediastinum and cardiovascular structures: Moderate cardiomegaly. There are calcific atherosclerotic plaques in the aorta. The central airway and mediastinal contours are unremarkable. Bones and soft tissues: Unremarkable. IMPRESSION: In comparison with the previous chest radiograph dated February 10, 2025, the current radiograph demonstrates: 1. Stable endotracheal tube, the right sided PICC line and the nasogastric catheter. 2. Moderate sized left sided pleural effusion causing opacification of the left hemithorax. Persistent left lower lobar lung infiltrates, which may represent atelectasis/consolidation. 3. Interval reduction in the degree of pulmonary parenchymal congestion with resolution of the infiltrates from the right lung. /[place] DICTATED BY: LEXX GRIGGS MD DATE: 02/12/25432 ELECTRONICALLY SIGNED BY: LEXX GRIGGS MD DATE: 02/12/25432 PATIENT: CHARY HERNANDEZ MR#: [id number] : 1980 SEX: M AGE: 44 LOCATION: [facility] ORDER 99 STATUS: ADM IN REPORT#: [id number] SERVICE 9 REASON: pp ORDERING PHYSICIAN: BIANCA WICK PROCEDURE: CXR1VW - CHEST 1VW EXAM: CR Chest, 1 View. CLINICAL HISTORY: Endotracheal tube. COMPARISON: 02/09/2025 FINDINGS: The endotracheal tube is seen with its tip terminating about 5.6 cm above the catina. The nasogastric tube is seen in the left hemidiaphragm; the tip is not visualized. LUNGS: Mild interval reduction in the aeration of both lungs. PLEURAL SPACES: No definite pleural effusion or pneumothorax. MEDIASTINUM: Cardiac size is stable. BONES: No aggressive appearing osseous lesion seen. IMPRESSION: 1. Endotracheal tube tip 5.6 cm above the catina. 2. Mild interval reduction in the aeration of both lungs. /[place] DICTATED BY: LARISSA LEMONS Jr., MD DATE: 02/10/251510 ELECTRONICALLY SIGNED BY: LARISSA LEMONS Jr., MD DATE: 02/10/251510 PATIENT: CHARY HERNANDEZ MR#: [id number] : 1980 SEX: M AGE: 44 LOCATION: [facility] ORDER 99 STATUS: ADM IN REPORT#: [id number] SERVICE 9 REASON: Respirateory failure ORDERING PHYSICIAN: NETO STARR PROCEDURE: CXR1VW - CHEST 1VW EXAM: CR Chest, 1 View. CLINICAL HISTORY: Respiratory failure COMPARISON: 02/08/2025 FINDINGS: The endotracheal tube is seen with its tip terminating about 5.4 cm above the catina. The nasogastric tube is seen in the left hemidiaphragm; the tip is not visualized. LUNGS: Essentially stable appearance of bilateral lung curtis, with persistent right basilar and diffuse left lung airspace disease. PLEURAL SPACES: No evidence of pleural effusion or pneumothorax. MEDIASTINUM: The cardiac size is stable. BONES: No aggressive appearing osseous lesion seen. IMPRESSION: 1. Endotracheal tube tip 5.4 cm above catina. 2. Nasogastric tube is demonstrated below the left hemidiaphragm; the tip is not visualized. 3. Essentially stable appearance of bilateral lung curtis, with persistent right basilar and diffuse left lung airspace disease. /[place] DICTATED BY: LARISSA LEMONS Jr., MD DATE: 02/09/251057 ELECTRONICALLY SIGNED BY: LARISSA LEMONS Jr., MD DATE: 02/09/251057 PATIENT: CHARY HERNANDEZ MR#: [id number] : 1980 SEX: M AGE: 44 LOCATION: [facility] ORDER 2300 STATUS: ADM IN REPORT#: [id number] SERVICE 0600 REASON: pp ORDERING PHYSICIAN: BIANCA WICK PAC PROCEDURE: CXR1VW - CHEST 1VW EXAM: CR Chest, 1 View. CLINICAL HISTORY: Follow up COMPARISON: 02/07/2025 FINDINGS: The endotracheal tube tip is 6.8 cm away from the catina. The nasogastric tube is seen below the left hemidiaphragm; the tip is not visualized. LUNGS: Essentially stable appearance of the bilateral lung curtis with mild bibasilar atelectasis and questionable small bilateral pleural effusions. PLEURAL SPACES: No evidence of pneumothorax. MEDIASTINUM: Cardiac size is stable. Mild stable pulmonary vascular congestion. BONES: No acute osseous abnormality. IMPRESSION: 1. Stable appearance of bilateral lung curtis with mild bibasilar atelectasis and questionable small bilateral pleural effusions. 2. Endotracheal tube tip 6.8 cm from catina. 3. Nasogastric tube below left hemidiaphragm, tip not visualized. /[place] DICTATED BY: LARISSA LEMONS Jr., MD DATE: 02/09/25 1110 ELECTRONICALLY SIGNED BY: LARISSA LEMONS Jr., MD DATE: 02/09/25 111 PATIENT: CHARY HERNANDEZ MR#: [id number] : 1980 SEX: M AGE: 44 LOCATION: [facility] ORDER 2300 STATUS: ADM IN REPORT#: [id number] SERVICE 0600 REASON: pp ORDERING PHYSICIAN: BIANCA WICK PAC PROCEDURE: CXR1VW - CHEST 1VW EXAM: CR Chest, 2 View. CLINICAL HISTORY: Intubated. COMPARISON: 02/06/2025 FINDINGS: The endotracheal tube is seen with its tip terminating about 6.7 cm above the catina. The nasogastric tube terminates in the proximal stomach. LUNGS: Interval improvement in basilar predominant bilateral diffuse airspace disease is present. PLEURAL SPACES: No definite pleural effusion or pneumothorax. MEDIASTINUM: Cardiac size is stable. BONES: No aggressive appearing osseous lesion seen. IMPRESSION: 1. Interval improvement in bilateral basilar predominant airspace disease. 2. Endotracheal tube tip positioned 6.7 cm above catina. 3. The nasogastric tube terminates in the proximal stomach. /[place] DICTATED BY: LARISSA LEMONS Jr., MD DATE: 02/07/251748 ELECTRONICALLY SIGNED BY: LARISSA LEMONS Jr., MD DATE: 02/07/251748 PATIENT: CHARY HERNANDEZ MR#: [id number] : 1980 SEX: M AGE: 44 LOCATION: [facility] ORDER 1341 STATUS: ADM IN REPORT#: [id number] SERVICE 1337 REASON: JUAN ORDERING PHYSICIAN: DARBY PORRAS MD PROCEDURE: RENAL - US RENAL SONOGRAM EXAMINATION: ULTRASOUND OF THE RETROPERITONEUM. CLINICAL HISTORY: JUAN. COMPARISON: None. TECHNIQUE: Real-time grayscale ultrasound images of the kidneys. FINDINGS: The kidneys are normal in caliber, the right kidney measures 12.9 x 6.5 x 6.5 cm and the left kidney measures 11.0 x 5.6 x 5.5 cm in its craniocaudal, AP, and transverse dimensions respectively. There is normal renal cortical thickness, and cortical echogenicity. There is no renal calculus or hydronephrosis. The urinary bladder is partially distended with mild wall thickening (0.6 cm). There are no calculi in the urinary bladder. IMPRESSION: Urinary bladder wall thickening of concern for cystitis. /[place] DICTATED BY: LARISSA LEMONS Jr., MD DATE: 02/07/25716 ELECTRONICALLY SIGNED BY: LARISSA LEMONS Jr., MD DATE: 02/07/25716 PATIENT: CHARY HERNANDEZ MR#: [id number] : 1980 SEX: M AGE: 44 LOCATION: [facility] ORDER 1118 STATUS: ADM IN REPORT#: [id number] SERVICE 1145 REASON: post intubation ORDERING PHYSICIAN: COMPA PATRICK MD PROCEDURE: CXR1VW - CHEST 1VW EXAM: CR Chest, 2 View. CLINICAL HISTORY: post intubation COMPARISON: Radiograph from February 04, 2025 FINDINGS: Endotracheal tubes in satisfactory position, tip terminating 3.5 cm above the catina. Right PICC terminates overlying the SVC. Bibasilar airspace disease may reflect an infectious process. No pleural effusion or pneumothorax. Heart size is stable. Pulmonary vessels are within normal limits. IMPRESSION: 1. Endotracheal tube and right PICC line in satisfactory positions. 2. Bibasilar airspace disease, possibly infectious. /[place] DICTATED BY: LARISSA LEMONS Jr., MD DATE: 02/05/25 1409 ELECTRONICALLY SIGNED BY: LARISSA LEMONS Jr., MD DATE: 02/05/25 140 PATIENT: CHARY HERNANDEZ MR#: [id number] : 1980 SEX: M AGE: 44 LOCATION: [facility] ORDER 9 STATUS: ADM IN REPORT#: [id number] SERVICE 8 REASON: ngt placement for TF ORDERING PHYSICIAN: ISAC MATHEW MD PROCEDURE: ABD 1VW - ABD 1VW EXAM: CR Abdomen, 1 View. CLINICAL HISTORY: ngt placement for TF COMPARISON: None provided. FINDINGS: BOWEL: The transverse colon is filled with gas and fecal content could be due to constipation Nasogastric tubes projecting below lthe eft hemidiaphragm in the stomach PERITONEUM/SOFT TISSUES: No free air evident. No pathologic appearing calcification. BONES: No acute osseous abnormality. IMPRESSION: The nasogastric tube is projected below the left hemidiaphragm over the stomach, tip is located in the body portion of the stomach Gas and fecal-loaded transverse colon consistent with constipation /[place] DICTATED BY: LARISSA LEMONS Jr., MD DATE: 02/03/251138 ELECTRONICALLY SIGNED BY: LARISSA LEMONS Jr., MD DATE: 02/03/251138 PATIENT: CHARY HERNANDEZ MR#: [id number] : 1980 SEX: M AGE: 44 LOCATION: [facility] ORDER STATUS: ADM IN REPORT#: [id number] SERVICE 5 REASON: hypoxia ORDERING PHYSICIAN: BIANCA GARCIA PROCEDURE: ECHO CMP - ECHO 2-D COMPLETE APPROVED REPORT EXAM: Two-dimensional and M-mode echocardiogram with Doppler and color Doppler. INDICATION ICD: R06.02 Shortness of breath 2D Dimensions RVDd 4.5 cm LVEF(%) 58.7 (>50%) LVED Vol(simp.) 152.0 mL IVSd 1.2 (0.7-1.1cm) FS(%) 32 % LVES Vol(simp.) 70.0 mL LVDd 6.1 (3.8-5.6cm) LA (2D) 4.0 (1.6-4.0cm) LVEF(%, simp.) 54 % PWd 0.8 (0.7-1.1cm) Ao Root(2D) 3.4 (2.0-3.7cm) LA ESV INDEX (BP) 26.38 mL/m2 IVSs 1.5 cm LVOT diam 2.7 (1.8-2.4cm) LVDs 4.1 (2.5-4.0cm) IVC diam 2.7 cm PWs 1.1 cm Deformation Strain Apical 4 -16.1 % Apical 2 -16.4 % Apical 3 -17.4 % Global Strain -16.6 % M-Mode Dimensions EPSS 0.3 cm LA (MM) 4.2 (1.6-4.0cm) Ao Root(MM) 4.0 (2.0-3.7cm) Aortic Valve AoV Vmax 1.4 m/s Ao Peak GR 7.3 mmHg LVOT Vmax 1.2 m/s AoV VTI 0.3 m Ao Mean GR 4.7 mmHg LVOT VTI 0.23 m MINH (VMAX) 5.28 cm2 MINH (VTI) 5.3 cm2 Mitral Valve MV E Vmax 88.4 cm/s DECEL Time 146 ms MV A Vmax 76.4 cm/s P 1/2 T 41 ms E/A ratio 1.2 MVA (PHT) 5.4 cm2 TDI E/E' Medial 10.2 E/E' Lateral 10.5 Medial E' Peak V 8.64 cm/s Lateral E' Peak V 8.43 cm/s Pulmonary Valve PV Vmax 0.8 m/s PV Peak GR 2.3 mmHg Tricuspid Valve TR Vmax 1.1 m/s RAP (EST) 8 mmHg RVSP 12.9 mmHg TR Peak GR 4.9 mmHg Left Ventricle The left ventricle is normal size. GLS -16.0% There is normal LV segmental wall motion. There is mild left ventricular wall thickness. LVEF is 55%. The LV ben stolic function was unable to be assessed due to atrial arrhythmia. Right Ventricle The right ventricle is normal size. The right ventricular systolic function is normal. Atria The left atrium size is normal. The right atrium size is normal. Aortic Valve The aortic valve is normal in structure. No aortic regurgitation is present. There is no aortic valvular stenosis. Mitral Valve The mitral valve is normal in structure. There is trace of mitral valve regurgitation noted. There is no mitral valve stenosis. Tricuspid Valve The tricuspid valve is normal in structure. There is no tricuspid valve regurgitation noted. Pulmonic Valve The pulmonary valve is normal in structure. There is mild pulmonic valvular regurgitation. Great Vessels The aortic root is normal in size. IVC is dilated and collapses >50% with inspiration. Pericardium There is no pericardial effusion. Other Information Quality : Technically diffcult study due to body habitus Conclusion LVEF is 55%. DICTATED BY: CAROL GALLAGHER MD DATE: 01/31/25844 ELECTRONICALLY SIGNED BY: CAROL GALLAGHER MD DATE: 01/31/252052 PATIENT: CHARY HERNANDEZ MR#: [id number] : 1980 SEX: M AGE: 44 LOCATION: [facility] ORDER STATUS: ADM IN [facility] - [facility] REPORT#: [id number] SERVICE REASON: r/o DVT ORDERING PHYSICIAN: BIANCA GARCIA PROCEDURE: VENOUS GRACIE - US VENOUS DOPPLER BILATERAL EXAM: US for Deep Venous Thrombosis, bilateral Lower Extremity. CLINICAL HISTORY: Rule out deep venous thrombosis. TECHNIQUE: Real-time ultrasound scan of the veins of the bilateral lower extremity with color Doppler flow, spectral waveform analysis and compression. COMPARISON: None provided. FINDINGS: DEEP VEINS: The common femoral, superficial femoral, and popliteal veins are echolucent and compressible. There is normal color Doppler flow throughout. The visualized calf veins appear patent. SOFT TISSUES: No popliteal fossa cyst or other abnormalities. IMPRESSION: No deep venous thrombosis is evident on bilateral lower extremity examination. /[place] DICTATED BY: LARISSA LEMONS Jr., MD DATE: 01/31/25400 ELECTRONICALLY SIGNED BY: LARISSA LEMONS Jr., MD DATE: 01/31/25400 PATIENT: CHARY HERNANDEZ MR#: [id number] : 1980 SEX: M AGE: 44 LOCATION: [facility] ORDER STATUS: ADM IN REPORT#: [id number] SERVICE REASON: r/o P.E. ORDERING PHYSICIAN: BIANCA GARCIA PROCEDURE: CHES PE - CT CHEST PE PROTOCOL WWO CONT EXAMINATION: CT Chest, with intravenous contrast CLINICAL HISTORY: Patient presents to rule out pulmonary embolism. TECHNIQUE: Axial computed tomography images of the chest, with intravenous contrast. Multiplanar reformations were generated and reviewed. CONTRAST: With intravenous contrast. COMPARISON: None provided. FINDINGS: CHEST: LUNGS: The lungs demonstrate extensive diffuse consolidation and airspace opacities and ground-glassing throughout the bilateral lungs, predominantly involving the lower lobes and perihilar regions. No pulmonary mass. PLEURAL SPACES: No pneumothorax or pleural effusion. CARDIOVASCULAR: Cardiomegaly is present. No significant pericardial effusion. The main pulmonary artery measures 3.2 cm. The right pulmonary artery measures 2 cm. The left pulmonary artery measures 2.2 cm. The pulmonary arteries show no evidence of filling defects. Normal caliber thoracic aorta. MEDIASTINUM AND SILVINO: No mediastinal or hilar lymphadenopathy. ABDOMEN : Hepatosplenomegaly BONES: No acute or aggressive osseous abnormality. IMPRESSION: No acute pulmonary embolism. Extensive diffuse bilateral pulmonary airspace opacities, predominantly in the lower lobes and perihilar regions, consistent with pulmonary edema. Cardiomegaly with mild pulmonary arterial hypertension. Hepatosplenomegaly. /[place] DICTATED BY: LARISSA LEMONS Jr., MD DATE: 01/31/25803 ELECTRONICALLY SIGNED BY: LARISSA LEMONS Jr., MD DATE: 01/31/25803 ASSESSMENT: Hyperkalemia Acute renal failure Acute hypoxemic and hypercarbic respiratory failure now with worsening respiratory distress ARDS Community-acquired pneumonia suspected Pneumocystis Toxic metabolic encephalopathy on admission Acute sepsis on admission without septic shock secondary to community-acquired pneumonia HIV positive newly diagnosed stage IV. Not on anti-retroviral medication CD4 count: 19 Immunocompromise status Suspected TB Obstructive sleep apnea, untreated/undiagnosed Morbid obesity, BMI 33.6 Volume overload PLAN: Labs, diagnostic, radiologic exams reviewed and interpreted by myself and anikete bebo physician. We have reviewed external records in detail There is no need for emergent renal replacement therapy at this time. Continue with close monitoring of electrolytes and renal function Order CBC, CMP, and electrolytes in am Continue with antibiotics as per ID Continue mechanical ventilation and sedation IV pressors as needed Monitor blood pressure adjust medication doses as needed May use Dilaudid 0.5 mg IV every 6 hours as needed for severe pain Monitor blood sugars Strict intake, output, and daily weight should be monitored Please renally adjust medications Avoid nephrotoxic and nonsteroidal drugs Avoid contrast if possible Will continue to monitor renal function, anemia, electrolytes Treatment plan discussed with patient Questions were answered We have discussed with the other team physicians in detail about the care plan We will continue to monitor the patient closely Total critical care time spent with patient, nursing staff, critical care team over 35 minutes ATTESTATION BY PHYSICIAN I have seen and examined the patient. I reviewed the documentation, medical decision making, and treatment plan as noted by the mid-level provider above. I agree with the findings and plan of care. DARBY PORRAS MD, [facility] Feb 18, 2025 10:38
[2025-02-18 12:33] LABS: ABG BASE EXCESS -16.4 mmol/L (-2.0-3.0); ABG HCO3 10.7 mmol/L (21.0-28.0); ABG OXYGEN SATURATION 97.0 % (94.0-98.0); ABG PCO2 30 mmHg (35-48); CARBON MONOXIDE 0.1 % (0.5-1.5); PO2, ARTERIAL BG 112.7 mmHg (83.0-108.0); TEMPERATURE, CELSIUS BG 37.0 CELSIUS (35.5-37.0); VENT MODE, BG AC (ROOM AIR)
[2025-02-18 12:37] LABS: ABG PH 7.171 (7.350-7.450)
--- NOTE | 2025-02-18 13:46 | HMCIMG ---
STUDY CR chest, 2 views HISTORY PICC line placement TECHNIQUE Posteroanterior and lateral views of the chest COMPARISON CR chest 1 view 02/17/2025 05:07 EST FINDINGS Lungs Nonhomogeneous hazy opacities are present in the bilateral lower lung zones, compatible with interstitial and early alveolar pulmonary edema. No discrete pulmonary mass is identified. Pleural spaces A small left pleural effusion is present. No pneumothorax is identified. Mediastinum Mild cardiomegaly is present and appears stable. Pulmonary vascular congestion has increased compared to the prior examination. The endotracheal tube tip projects approximately 5.5 cm above the catina. The nasogastric tube courses below the diaphragm with tip in appropriate intragastric position. A right upper extremity PICC line is present with its tip projecting over the expected location of the superior vena cava. Bones No acute osseous abnormality is identified. IMPRESSION * Mild cardiomegaly with increasing pulmonary vascular congestion and bilateral basal-predominant interstitial and early alveolar pulmonary edema compared to the prior study. * Small left pleural effusion. * Right upper extremity PICC with tip in the expected location of the superior vena cava; endotracheal and nasogastric tubes in satisfactory positions. /[place]
--- NOTE | 2025-02-18 14:35 | NUR ---
Dr. Naveed Abdul rounded on patient. Updated MD on patient status. MD ordered labs for AM. Informed MD of low bicarb and elevated lactic acid. No new orders given.
--- NOTE | 2025-02-18 17:30 | PN ---
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 02/18/25 09:07 17 GM Propofol (DIPRivan 1000MG/ 100ML) 1,000 mg PROTOCOL PRN IV SEDATION 02/05/25 11:30 02/08/25 15:52 DC 02/08/25 08:29 1,000 MG Propofol (DIPRivan 1000MG/ 100ML) 1,000 mg PROTOCOL PRN IV SEDATION 02/15/25 13:30 03/17/25 13:29 02/18/25 17:08 1,000 MG Propofol (DIPRivan 1000MG/ 100ML) 1,000 mg PROTOCOL PRN IV SEDATION 02/12/25 23:30 02/15/25 13:07 DC 02/13/25 08:16 1,000 MG Raltegravir (Isentress) 400 mg BID PO 02/10/25 21:00 03/12/25 20:59 02/18/25 09:07 400 MG Silver Sulfadiazine (Silvadene) 1 APPL BID TP 02/16/25 21:00 03/18/25 20:59 02/18/25 09:09 1 GIORGI Sodium Bicarbonate 150 meq/Dextrose 1,150 ml @ 200 mls/hr Q5H45M IVP 02/16/25 06:30 03/18/25 06:29 02/18/25 15:30 200 MLS/HR Sodium Bicarbonate (Sodium Bicarbonate) 100 mg DAILY PO 02/14/25 12:00 02/14/25 12:35 DC Sodium Bicarbonate (Sodium Bicarb 50meq 50ml Vial) 50 meq Q8H6 IV 02/06/25 14:00 02/07/25 16:00 DC 02/07/25 14:47 50 MEQ Sodium Chloride 1,000 ml @ 100 mls/hr Q10H IV 01/30/25 20:00 01/31/25 05:38 DC 01/30/25 21:18 100 MLS/HR Sodium Chloride (NS 50ml) 50 ml AD IV 02/10/25 06:00 03/12/25 05:59 Sodium Zirconium Cyclosilicate (Lokelma 10gm Powder) 10 gm BID PO 02/09/25 12:00 02/10/25 11:59 DC 02/10/25 08:29 10 GM Sodium Zirconium Cyclosilicate (Lokelma 10gm Powder) 10 gm TID PO 02/10/25 14:00 02/11/25 13:59 DC 02/11/25 08:26 10 GM Trimethoprim/ Sulfamethoxazole 480 mg/Dextrose 500 ml @ 250 mls/hr Q6H IV 01/30/25 21:00 02/01/25 11:57 DC 02/01/25 02:49 250 MLS/HR Trimethoprim/ Sulfamethoxazole 480 mg/Dextrose 500 ml @ 250 mls/hr Q6H IV 02/01/25 12:00 02/10/25 15:05 DC 02/10/25 08:27 250 MLS/HR Trimethoprim/ Sulfamethoxazole 480 mg/Dextrose 500 ml @ 250 mls/hr Q6H IV 02/10/25 16:00 02/20/25 15:59 02/18/25 15:42 250 MLS/HR Trimethoprim/ Sulfamethoxazole / Dextrose 100 ml @ 100 mls/hr AD IV 01/30/25 20:00 02/09/25 19:59 UNV Wound Care/ Dressing Products (Venelex Ointment) BID TP 02/09/25 21:00 02/16/25 16:23 DC 02/16/25 08:36 1 GM DIAGNOSTICS / RADIOLOGY: [place] [address] IMAGING REPORT Signed PATIENT: CHARY HERNANDEZ MR#: [id number] : 1980 SEX: M AGE: 44 LOCATION: 2CH ORDER 1150 STATUS: ADM IN REPORT#: [id number] SERVICE 1149 REASON: PICC line placement ORDERING PHYSICIAN: EMMANUEL CAMARILLO MD PROCEDURE: CXR1VW - CHEST 1VW STUDY CR chest, 2 views HISTORY PICC line placement TECHNIQUE Posteroanterior and lateral views of the chest COMPARISON CR chest 1 view 02/17/2025 05:07 EST FINDINGS Lungs Nonhomogeneous hazy opacities are present in the bilateral lower lung zones, compatible with interstitial and early alveolar pulmonary edema. No discrete pulmonary mass is identified. Pleural spaces A small left pleural effusion is present. No pneumothorax is identified. Mediastinum Mild cardiomegaly is present and appears stable. Pulmonary vascular congestion has increased compared to the prior examination. The endotracheal tube tip projects approximately 5.5 cm above the catina. The nasogastric tube courses below the diaphragm with tip in appropriate intragastric position. A right upper extremity PICC line is present with its tip projecting over the expected location of the superior vena cava. Bones No acute osseous abnormality is identified. IMPRESSION * Mild cardiomegaly with increasing pulmonary vascular congestion and bilateral basal-predominant interstitial and early alveolar pulmonary edema compared to the prior study. * Small left pleural effusion. * Right upper extremity PICC with tip in the expected location of the superior vena cava; endotracheal and nasogastric tubes in satisfactory positions. /[facility] DICTATED BY: LARISSA LEMONS Jr., MD DATE: 02/18/251444 ELECTRONICALLY SIGNED BY: LARISSA LEMONS Jr., MD DATE: 02/18/251444 ASSESSMENT: Acute hypoxemic respiratory failure POA 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 Acute hypoxemic respiratory failure POA Patient is currently intubated, continue on propofol and fentanyl drips. Chest x-ray on presentation showed diffuse bilateral pneumonia with ARDS type picture. CT chest on presentation showed bilateral airspace opacities involving nearly entire lung curtis raising concern for severe diffuse pneumonia/ARDS like pattern Continue Solu-Medrol 40mg IV bid DuoNeb inhalation q.4h Pulmonology on board, we will continue to follow the recommendations Suspected Pneumocystis Jirovecii Pneumonia (PJP )POA Chest x-ray on presentation showed diffuse bilateral pneumonia with ARDS type picture CT chest showed bilateral airspace opacities involving nearly entire lung curtis raising concern for severe diffuse pneumonia/ARDS like pattern Continue fluconazole 200 mg IV Q 24 , TMP SMX q.6 discontinue cefepime and start Meropenem1 g IV every 8 hours and continue on Bactrim, doxycycline and fluconazole. Pulmonology, Infectious Disease on board. We will follow their recommendations. HIV infection with AIDS as he has a CD4 count of 19 Patient had history of on unsafe sexual practices with multiple partners reported by her sister HIV1 and 2 Ab, HIV P 24 Ag evaluation showed preliminary positive for both HIV1 and 2 antigen/antibody, 4th gen preliminary reactive Absolute CD4 count 19, CD4/CD8 ratio 0.04 HIV 1RNA PCR showed a viral load of [id number] Infectious Disease started Isentress 400 mg b.i.d., travuda tablet p.o. daily on 02/10/2025 Case management working with [facility] for HIV management. ID on board. Sepsis POA On presentation to ED patient's temperature 100.2, pulse 112, respiratory rate 28, lactic acid 2, procalcitonin 1.55 Chest x-ray showed diffuse bilateral pneumonia with ARDS type picture CT chest showed bilateral airspace opacities involving nearly entire lung curtis raising concern for severe diffuse pneumonia/ARDS like pattern Continue fluconazole 200 mg IV Q 24 , TMP SMX q.6 discontinue cefepime and start Meropenem1 g IV every 8 hours and continue on Bactrim, doxycycline and fluconazole. Lactic acid today at 17.5, bicarb dose increased to 200 We will trend white count, lactic acid Uncontrolled hyperglycemia secondary to steroids Blood glucose in the morning was 322 and well elevated likely from steroids. Continue to monitor the blood glucose level. Continue insulin sliding scale. Tuberculosis R/O POA 3 out of 3 sputum samples collected for AFB smear. Sputum sample is sent for respiratory culture, we will follow up with the culture results. No acid-fast bacilli in smear from first 2 samples, studies to continue. GI prophylaxis with Pepcid 20 mg IV DVT prophylaxis with heparin 5000 SQ q.12h ATTESTATION BY PHYSICIAN I have seen and examined the patient. I reviewed the documentation, medical decision making, and treatment plan as noted by the resident physician above. I agree with the findings and plan of care. Erick Kirby IV, MD, ABHINAV MD Feb 18, 2025 17:30
--- NOTE | 2025-02-18 20:09 | PN ---
[facility] PROGRESS NOTE Date Patient Seen: Feb 18, 2025 Time of Visit: 20:04 Supervising Physician: EMMANUEL CAMARILLO MD Primary Care Physician: [Avi LESTER] Outpatient Specialists: [ ] Inpatient Consults: [Dr. Prince, [facility] team-ICU] PROBLEM LIST: Acute hypoxemic and hypercarbic respiratory failure ARDS Pneumocystis pneumonia Acute metabolic acidosis Toxic metabolic encephalopathy on admission Acute sepsis on admission without septic shock secondary to community-acquired pneumonia HIV positive newly diagnosed stage IV. Not on anti-retroviral medication Acquired immunodeficiency syndrome Obstructive sleep apnea, untreated/undiagnosed Morbid obesity, BMI 33.6 Acute kidney injury on top of chronic kidney disease INTERVAL HISTORY: 44 years old man with underlying HIV and acquired immunodeficiency syndrome. Patient confirmed to have Pneumocystis pneumonia. Currently on mechanical ventilatory support via endotracheal tube. Unable to wean,. We tried to start weaning trials yesterday however the patient is very hypoxic, tachypneic and with persistent distress as well as a bicarbonate level of 10 with persistent acidosis. Patient is not sedated and he does not open eyes to command and grimaces to painful stimuli. Urine output is less than 500 cc in the last 12 hours. No fevers reported in the last 12 hours. No seizures reported in the last 12 hours. Family updated about patient's underlying prognosis and current clinical status with the next step and medical treatment starting patient on bicarbonate drip. REVIEW OF SYSTEMS: Unable to obtain, patient on mechanical ventilatory support and with acute encephalopathy nonverbal. PHYSICAL EXAM: On mechanical ventilator support via endotracheal tube. Bed ridden and nonverbal GENERAL: on Vent assistance, responding to self HEENT: EOMI, Sclera non icteric, moist mucosa NECK: Supple, no JVD, trachea midline LUNGS: Bilateral rhonchi HEART: Regular rate and rhythm. Normal S1 and S2, without murmurs ABD: Abdomen soft, nontender. Bowel sounds present, obese EXT: No clubbing cyanosis or edema : Dias in situ NEURO: Sedated Vital Signs (last 8hr) Date Time Temp Pulse Resp B/P (MAP) Pulse Ox O2 Delivery O2 Flow Rate FiO2 02/18/25 19:49 50 02/18/25 19:23 104 17 121/59 (79) 95 02/18/25 19:08 115 18 132/57 (82) 91 02/18/25 19:05 91 50 12/13/25 19:04 91 20 25 18:53 105 23 119/49 (72) 91 12/ 18:38 92 18 113/46 (68) 97 12/ 18:23 90 18 112/48 (69) 96 / 18:08 90 16 106/45 (65) 97 / 17:53 91 17 109/46 (67) 97 /13 17:45 91 19 106/50 (68) 97 50 12/13/25 17:30 92 14 105/50 (68) 96 50 12/13/25 17:15 92 14 104/43 (63) 97 50 12//25 17:00 92 13 101/49 (66) 97 50 12/ 16:45 93 15 107/40 (62) 96 50 12//25 16:30 93 13 114/46 (68) 97 50 12//25 16:15 94 14 104/47 (66) 97 50 02/18/25 16:00 97 Ventilator+ 50 02/18/25 16:00 97.2 94 14 102/43 (62) 97 50 12//25 16:00 97.2 12/25 16:00 50 12// 15:45 93 18 104/48 (66) 97 50 12//25 15:30 92 15 105/55 (72) 97 50 12//25 15:15 92 14 108/51 (70) 97 50 12//25 15:00 92 50 12//25 15:00 92 17 107/49 (68) 97 50 12/13/25 14:45 92 14 102/45 (64) 97 50 12/13/25 14:30 92 14 108/45 (66) 97 50 12/13/25 14:15 93 14 104/46 (65) 96 50 12/13/25 14:00 93 19 113/51 (71) 96 50 12/13/25 13:45 95 18 112/52 (72) 96 50 12/13/25 13:15 94 18 100/42 (61) 97 50 12/13/25 13:00 95 15 100/41 (60) 97 50 12/13/25 12:45 96 16 104/46 (65) 97 50 12/13/25 12:30 98 16 107/46 (66) 96 50 02/18/25 12:15 103 17 120/61 (80) 97 50 02/18/25 12:07 115 50 LABS: Hematology Labs: Test 02/18/25 04:55 Range/Units White Blood Count 4.8 4.8-10.8 K/uL Red Blood Count 2.55 L 4.50-6.20 MIL/uL Hemoglobin 7.4 L 14.0-18.0 g/dL Hematocrit 21.8 L 42-54 % Mean Corpuscular Volume 85.5 79-99 fL Mean Corpuscular Hemoglobin 29.0 27.0-33.0 pg Mean Corpuscular Hemoglobin Concent 33.9 32.0-36.0 g/dL Red Cell Distribution Width 14.3 11.0-15.5 % Platelet Count 89 L 130-400 K/uL Mean Platelet Volume 9.4 7.5-10.5 fL Immature Granulocyte % (Auto) 5.6 H 0-1 % Neutrophils (%) (Auto) 91.3 H 40.0-77.0 % Lymphocytes (%) (Auto) 2.1 L 21.0-51.0 % Monocytes (%) (Auto) 1.0 L 3.0-13.0 % Eosinophils (%) (Auto) 0.0 0.0-8.0 % Basophils (%) (Auto) 0.0 0.0-5.0 % Neutrophils # (Auto) 4.4 1.8-7.7 K/uL Lymphocytes # (Auto) 0.1 L 1.0-4.8 K/uL Monocytes # (Auto) 0.1 0.1-1.0 K/uL Eosinophils # (Auto) 0.00 0.00-0.70 K/uL Basophils # (Auto) 0.00 0.00-0.20 K/uL Absolute Immature Granulocyte (auto 0.27 0-1 K/uL Segmented Neutrophils % 91 H 40-70 % Band Neutrophils % 3 H 0-2 % Lymphocytes % (Manual) 3 L 22-44 % Monocytes % (Manual) 1 L 2-9 % Myelocytes % 1 H 0-0 % Nucleated Red Blood Cells 0.4 H 0.0-0.19 % Differential Comment MANUAL DIFFERENTIAL Reactive Lymphocytes 1 H 0-0 % White Cell Morphology Comment See comments Platelet Morphology Comment DECREASED Red Blood Cell Morphology ANISO 1+ Chemistry Labs: Test 02/18/25 19:54 02/18/25 09:55 02/18/25 04:55 02/17/25 04:21 Range/Units Whole Blood Glucose 156 H 70-110 MG/DL Lactic Acid Level 18.9 H 0.8-2.5 mmol/L Sodium Level 134 L 136-145 mmol/L Potassium Level 4.2 3.5-5.1 mmol/L Chloride Level 99 L 101-111 mmol/L Carbon Dioxide Level 10 *L 21-32 mmol/L Blood Urea Nitrogen 47 H 7-18 mg/dL Creatinine 2.0 H 0.5-1.3 mg/dL Glomerular Filtration Rate Calc 42 >90 mL/min Random Glucose 159 H 70-105 mg/dL Total Calcium 7.2 L 8.5-10.1 mg/dL Total Bilirubin 0.5 0.2-1.0 mg/dL Aspartate Amino Transf (AST/SGOT) 113 H 10-37 U/L Alanine Aminotransferase (ALT/SGPT) 88 H 12-78 U/L Alkaline Phosphatase 96 50-136 U/L Total Protein 4.6 L 6.0-8.3 g/dL Albumin 1.5 L 3.5-5.0 g/dL Phosphorus Level 2.7 2.5-4.9 mg/dL Magnesium Level 1.90 1.80-2.40 mg/dL DIAGNOSTICS / RADIOLOGY RESULTS: Chest x-ray with worsening bilateral pulmonary infiltrates PLAN Patient is critically ill on artificial life support via mechanical ventilator support. His overall prognosis is extremely poor due to underlying metabolic encephalopathy and acquired immunodeficiency syndrome complicating his clinical picture even more Patient will receive a bolus of bicarbonate right now And we will continue with bicarbonate drip Patient has a new PICC line Continue pressor support Monitor input and output Avoid the use of central acting medications and slowly wean off sedation as tolerated Can not wean off patient at this time Poor prognosis NEURO: Avoid use of central acting medications will try to wean off sedation PULMONARY: Supplemental 02 as needed Titrate Fio2 to keep Spo2 > or = 90% DuoNebs and CPT as needed IS hourly while awake for pulmonary hygiene Out of bed to chair as tolerated VAP Bundle Vent/BIPAP Settings: [ BIPAP setting 10/5 rate of 18 FiO2 60%. ] CARDIOVASCULAR: Follow hemodynamics. Titrate vasopressor to keep MAP >65 or systolic blood pressure >95mmHg DRIPS: [Precedex ] LINES: [PIV] GI & NUTRITION: Continue nutritional support Aspirations precautions Prokinetic agents and laxatives as needed KIDNEYS & ELECTROLYTES: Strict monitoring of intake and output Daily weights Avoid nephrotoxic agents Monitor electrolytes and replace as needed Dias care-prevent CAUTI per nursing Goal urine output of 30mL/hr or 0.5mL/kg/hr Urine output: [ ] Fluid Balance: [ ] ENDOCRINE: Maintain blood glucose between 100-180 at all times. Insulin sliding scale for blood glucose management INFECTIOUS DISEASE: Trend temperature. Lara-culture if febrile. Micro: [ ] Antibiotics: [Vancomycin 01/30- IV Fluconazole: 01/30- IV Sulfa/TMP: 01/30-] HEMATOLOGY & COAGULATION: Monitor H&H. Keep Hgb > 7 Transfuse 1 unit of PRBC for Hgb < 7 Transfuse 1 pack of platelets of platelets < 20, 000 Watch for any signs and symptoms of bleeding SKIN: Pressure ulcer prevention per facility protocol Rehab: PT/OT Prophylaxis: GI: [Pepcid] DVT: [Heparin ] Code Status: Full Resuscitation Disposition: [ICU ] Total critical care time in the ICU: 35 minutes I personally scribed for EMMANUEL CAMARILLO MD ([email or web address]) on 02/18/25 at 20:09. Electronically submitted by Erick Cruz ([email or web address]). EMMANUEL CAMARILLO MD Feb 18, 2025 20:09
--- NOTE | 2025-02-18 21:41 | NUR ---
550 residual from tube feeding, Stopped feeding, as per [employer] sales and marketing representative, to recheck residuals in 2 hours.
[2025-02-19] VITALS (107 sets, daily range): BP systolic 77–139; BP diastolic 38–68; PULSE 83–137; RESP 11–69; TEMP 96.4–98.5; O2SAT 86–98
--- NOTE | 2025-02-19 00:30 | NUR ---
Rechecked residuals, still at 500, tube feedings are still on hold.
[2025-02-19 04:53] LABS: NUCLEATED RED BLOOD CELLS 0.8 % (0.0-0.19); PLATELET COUNT (AUTO) 74.0 K/uL (130-400); RED BLOOD CELL COUNT(AUTO) 2.06 MIL/uL (4.50-6.20); RED CELL DISTRIBUTION WIDTH 14.7 % (11.0-15.5); WHITE BLOOD COUNT (AUTO) 2.5 K/uL (4.8-10.8)
[2025-02-19 05:09] LABS: CREATININE 1.8 mg/dL (0.5-1.3); GLOMERULAR FILTR. RATE CALC 48.0 mL/min (>90); GLUCOSE,RANDOM 193.0 mg/dL (70-105); SODIUM SERUM 133.0 mmol/L (136-145); UREA NITROGEN, BLOOD 40.0 mg/dL (7-18)
--- NOTE | 2025-02-19 05:11 | NUR ---
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
[2025-02-19 06:23] LABS: ASPARTATE AMINOTRANSFERASE 114.0 U/L (10-37); TOTAL PROTEIN, SERUM 3.8 g/dL (6.0-8.3)
--- NOTE | 2025-02-19 09:59 | PN ---
NEPHROLOGY PROGRESS NOTE Date/Time Patient Seen: Feb 19, 2025 SUBJECTIVE: This is a 44-year-old male with HIV positive newly diagnosed He was brought by EMS to the ED for complaints of shortness of breaths for the past two weeks. He has been in the hospital for several days He continues on antibiotics, including Bactrim, as per ID. He was noted to have elevated BUN/creatinine We are consulted for renal failure Renal function is stable Electrolytes are stable Urine output was noted. Hemoglobin was noted He was seen in the ICU, Continues to be intubated and sedated Family at the bedside Prognosis remains guarded REVIEW OF SYSTEMS: Difficult to obtain given status of the patient who remains intubated mechanically ventilated Vital Signs (last 8hr) Date Time Temp Pulse Resp B/P (MAP) Pulse Ox O2 Delivery O2 Flow Rate FiO2 02/19/25 06:40 91 50 02/19/25 05:52 83 12 93/43 (60) 96 02/19/25 05:37 83 11 97/43 (61) 97 02/19/25 05:22 83 11 93/44 (60) 97 02/19/25 05:08 83 11 92/45 (61) 97 02/19/25 04:52 84 12 102/43 (62) 96 02/19/25 04:52 88 50 02/19/25 04:38 85 12 97/43 (61) 97 02/19/25 04:22 85 13 104/44 (64) 97 02/19/25 04:08 86 12 102/43 (62) 97 02/19/25 04:00 97 Ventilator+ 50 02/19/25 04:00 50 02/19/25 04:00 96.8 02/19/25 03:52 86 17 102/50 (67) 97 02/19/25 03:37 86 12 98/39 (58) 97 02/19/25 03:23 86 14 97/44 (61) 97 02/19/25 03:07 87 12 106/46 (66) 97 02/19/25 02:53 88 13 102/40 (60) 97 02/19/25 02:46 88 50 02/19/25 02:38 87 14 107/38 (61) 97 02/19/25 02:23 87 14 105/43 (63) 97 02/19/25 02:07 88 16 109/41 (63) 97 PHYSICAL EXAM: General: acutely ill, sedated, intubated, and mechanically ventilated HEENT: head is atraumatic, pupils equal and reactive, ET tube in place Neck: supple, no masses, no lymphadenopathy, no thyromegaly, no JVD Lungs: decreased breath sounds bilaterally, symmetrical chest movement Cardio: regular rate, S1 and S2 normal, no rub or gallop Abdomen: soft, non tender, no distension, no organomegaly Extremities: trace edema bilateral lower extremities, no cyanosis or clubbing Skin: no rashes or suspicious lesions Neuro: sedated Current Medications Medications (Trade) Dose Ordered Sig/Amada Route Start Time Stop Time Status Last Admin Dose Admin Albuterol (DUOneb) 1 udvial [id number] IH 01/30/25 22:00 03/01/25 21:59 02/09/25 10:30 1 UDVIAL Cefepime HCl (MAXipime 2 gm vial) 2 gm Q12H IVPB 02/01/25 14:00 02/11/25 13:59 02/09/25 01:56 2 GM Dexmedetomidine/ Sodium Chloride (PRECEdex 400MCG/ 100ML-NS) 400 mcg PROTOCOL IV 02/04/25 23:45 03/06/25 23:44 02/09/25 05:56 400 MCG Doxycycline Hyclate 250 ml @ 125 mls/hr Q12H IV 01/31/25 14:00 02/10/25 13:59 02/09/25 01:56 125 MLS/HR Famotidine (Pepcid 20mg Vial) 20 mg DAILY IV 01/31/25 09:00 03/02/25 08:59 02/09/25 08:28 20 MG Fentanyl Citrate 100 ml @ 2.5 mls/hr PROTOCOL IV 02/05/25 11:30 02/05/25 19:59 DC 02/05/25 17:13 2.5 MLS/HR Fentanyl/Sodium Chloride 250 ml @ 0.1 mls/hr PROTOCOL IV 02/05/25 20:00 02/08/25 15:52 DC 02/07/25 22:11 0.1 MLS/HR Fluconazole/ Sodium Chloride (DiFLUCan 200 MG/ NS 100 ML) 200 mg DAILY22 IV 02/02/25 22:00 03/01/25 17:59 02/08/25 23:07 200 MG Fluconazole/ Sodium Chloride (DiFLUCan 200 MG/ NS 100 ML) 200 mg Q24H IV 01/30/25 18:00 02/02/25 14:38 DC 02/01/25 18:17 200 MG Furosemide (LASix 20MG VIAL) 20 mg Q8H IV 02/06/25 16:00 03/08/25 15:59 02/09/25 08:02 20 MG Furosemide (LASix 40MG VIAL) 20 mg ONCE STAT IV 01/31/25 05:37 01/31/25 05:40 DC 01/31/25 05:45 20 MG Heparin Sodium (Porcine) (HEParin 5,000 UNIT VIAL) 5,000 unit Q12H SQ 01/31/25 09:00 03/02/25 08:59 02/09/25 08:47 5,000 UNIT Insulin Glargine (LANtus 100 UNITS/ML 10 ML VIAL) 20 units BID SQ 02/04/25 21:00 02/06/25 14:49 DC 02/06/25 10:03 20 UNITS Insulin Glargine (LANtus 100 UNITS/ML 10 ML VIAL) 30 units BID SQ 02/06/25 21:00 03/08/25 20:59 02/09/25 08:36 30 UNITS Insulin Human Regular (humuLIN R 100 UNIT/ML 3ML) INSULIN SLIDING SCAL... ACHS SQ 02/07/25 16:30 02/07/25 11:56 DC Insulin Human Regular (humuLIN R 100 UNIT/ML 3ML) INSULIN SLIDING SCAL... Q6H6 SQ 01/31/25 06:00 02/07/25 11:55 DC 02/07/25 06:03 5 UNIT Insulin Human Regular (humuLIN R 100 UNIT/ML 3ML) INSULIN SLIDING SCAL... Q6H6 SQ 02/07/25 12:00 03/09/25 11:59 02/08/25 18:27 4 UNIT Methylprednisolone Sodium Succinate (Solu-medROL 40MG) 40 mg BID IVP 01/30/25 21:00 01/31/25 04:16 DC 01/30/25 21:18 40 MG Methylprednisolone Sodium Succinate (Solu-medROL 40MG) 40 mg BID IVP 02/07/25 21:00 1/1/26 20:59 02/09/25 08:28 40 MG Methylprednisolone Sodium Succinate (Solu-medROL 40MG) 40 mg Q8H IVP 01/31/25 04:30 02/02/25 11:57 DC 02/02/25 11:47 40 MG Methylprednisolone Sodium Succinate (Solu-medROL 40MG) 60 mg Q6H IVP 02/02/25 12:00 02/07/25 15:17 DC 02/07/25 11:27 60 MG Metoclopramide HCl (regLAN 10MG IV) 10 mg Q8H IVP 02/06/25 16:00 03/08/25 15:59 02/09/25 08:02 10 MG Morphine Sulfate (morPHINE 2MG SYG) 2 mg ONCE STAT IVP 01/31/25 05:41 01/31/25 05:45 DC 01/31/25 05:51 2 MG Multi-Ingred Cream/Lotion/Oil/ Oint (Artificial Tears Eye Oint) Apply ointment to both e... Q4H OU 01/31/25 15:00 03/02/25 14:59 02/09/25 06:37 1 APPL Norepinephrine Bitartrate (Norepineph 16 Mg/250ml NS Premix) sbp>90 PROTOCOL IV 02/05/25 11:30 03/07/25 11:29 Pharmacy Profile Note (Pharmacy Communication) 1 each ONCE MISC 02/05/25 11:30 02/05/25 11:23 DC Piperacillin Sod/ Tazobactam Sod (Zosyn 3.375gm+NS 50ml) 3.375 gm Q8H IVPB 01/31/25 09:30 01/31/25 12:56 DC 01/31/25 11:04 3.375 GM Piperacillin Sod/ Tazobactam Sod (Zosyn 3.375gm+NS 50ml) 3.375 gm ZOSY8 IVPB 01/31/25 13:00 02/01/25 13:33 DC 02/01/25 11:54 3.375 GM Polyethylene Glycol (MIRalax 3350 17 GM POWD.PACK) 17 gm DAILY PO 02/07/25 11:30 03/09/25 11:29 02/09/25 08:28 17 GM Sodium Bicarbonate (Sodium Bicarb 50meq 50ml Vial) 50 meq Q8H6 IV 02/06/25 14:00 02/07/25 16:00 DC 02/07/25 14:47 50 MEQ Sodium Chloride 1,000 ml @ 100 mls/hr Q10H IV 01/30/25 20:00 01/31/25 05:38 DC 01/30/25 21:18 100 MLS/HR Sodium Zirconium Cyclosilicate (Lokelma 10gm Powder) 10 gm BID PO 02/09/25 12:00 02/10/25 11:59 02/09/25 12:26 10 GM Trimethoprim/ Sulfamethoxazole 480 mg/Dextrose 500 ml @ 250 mls/hr Q6H IV 01/30/25 21:00 02/01/25 11:57 DC 02/01/25 02:49 250 MLS/HR Trimethoprim/ Sulfamethoxazole 480 mg/Dextrose 500 ml @ 250 mls/hr Q6H IV 02/01/25 12:00 02/11/25 11:59 02/09/25 12:21 250 MLS/HR Trimethoprim/ Sulfamethoxazole / Dextrose 100 ml @ 100 mls/hr AD IV 01/30/25 20:00 02/09/25 19:59 UNV Wound Care/ Dressing Products (Venelex Ointment) BID TP 02/09/25 21:00 03/11/25 20:59 LABORATORY: [ ] Hematology Labs: Test 02/19/25 04:29 02/18/25 04:55 Range/Units White Blood Count 2.5 #L 4.8-10.8 K/uL Red Blood Count 2.06 L 4.50-6.20 MIL/uL Hemoglobin 6.3 *L 14.0-18.0 g/dL Hematocrit 17.5 *L 42-54 % Mean Corpuscular Volume 85.0 79-99 fL Mean Corpuscular Hemoglobin 30.6 27.0-33.0 pg Mean Corpuscular Hemoglobin Concent 36.0 32.0-36.0 g/dL Red Cell Distribution Width 14.7 11.0-15.5 % Platelet Count 74 L 130-400 K/uL Mean Platelet Volume 10.4 7.5-10.5 fL Nucleated Red Blood Cells 0.8 H 0.0-0.19 % Immature Granulocyte % (Auto) 5.6 H 0-1 % Neutrophils (%) (Auto) 91.3 H 40.0-77.0 % Lymphocytes (%) (Auto) 2.1 L 21.0-51.0 % Monocytes (%) (Auto) 1.0 L 3.0-13.0 % Eosinophils (%) (Auto) 0.0 0.0-8.0 % Basophils (%) (Auto) 0.0 0.0-5.0 % Neutrophils # (Auto) 4.4 1.8-7.7 K/uL Lymphocytes # (Auto) 0.1 L 1.0-4.8 K/uL Monocytes # (Auto) 0.1 0.1-1.0 K/uL Eosinophils # (Auto) 0.00 0.00-0.70 K/uL Basophils # (Auto) 0.00 0.00-0.20 K/uL Absolute Immature Granulocyte (auto 0.27 0-1 K/uL Segmented Neutrophils % 91 H 40-70 % Band Neutrophils % 3 H 0-2 % Lymphocytes % (Manual) 3 L 22-44 % Monocytes % (Manual) 1 L 2-9 % Myelocytes % 1 H 0-0 % Differential Comment MANUAL DIFFERENTIAL Reactive Lymphocytes 1 H 0-0 % White Cell Morphology Comment See comments Platelet Morphology Comment DECREASED Red Blood Cell Morphology ANISO 1+ Chemistry Labs: Test 02/19/25 08:06 02/19/25 04:29 02/18/25 09:55 Range/Units Whole Blood Glucose 170 H 70-110 MG/DL Sodium Level 133 L 136-145 mmol/L Potassium Level 3.5 3.5-5.1 mmol/L Chloride Level 94 L 101-111 mmol/L Carbon Dioxide Level 12 L 21-32 mmol/L Blood Urea Nitrogen 40 H 7-18 mg/dL Creatinine 1.8 H 0.5-1.3 mg/dL Glomerular Filtration Rate Calc 48 >90 mL/min Random Glucose 193 H 70-105 mg/dL Total Calcium 6.4 L 8.5-10.1 mg/dL Total Bilirubin 0.9 # 0.2-1.0 mg/dL Direct Bilirubin 0.2 0.0-0.3 mg/dL Aspartate Amino Transf (AST/SGOT) 114 H 10-37 U/L Alanine Aminotransferase (ALT/SGPT) 82 H 12-78 U/L Alkaline Phosphatase 84 50-136 U/L Total Protein 3.8 L 6.0-8.3 g/dL Albumin 1.2 L 3.5-5.0 g/dL Lactic Acid Level 18.9 H 0.8-2.5 mmol/L DIAGNOSTICS / RADIOLOGY: [place] [id number] [address] IMAGING REPORT Signed PATIENT: CHARY HERNANDEZ MR#: [id number] : 1980 SEX: M AGE: 44 LOCATION: 2CH ORDER 1150 STATUS: ADM IN REPORT#: [id number] SERVICE 1149 REASON: PICC line placement ORDERING PHYSICIAN: EMMANUEL CAMARILLO MD PROCEDURE: CXR1VW - CHEST 1VW STUDY CR chest, 2 views HISTORY PICC line placement TECHNIQUE Posteroanterior and lateral views of the chest COMPARISON CR chest 1 view 02/17/2025 05:07 EST FINDINGS Lungs Nonhomogeneous hazy opacities are present in the bilateral lower lung zones, compatible with interstitial and early alveolar pulmonary edema. No discrete pulmonary mass is identified. Pleural spaces A small left pleural effusion is present. No pneumothorax is identified. Mediastinum Mild cardiomegaly is present and appears stable. Pulmonary vascular congestion has increased compared to the prior examination. The endotracheal tube tip projects approximately 5.5 cm above the catina. The nasogastric tube courses below the diaphragm with tip in appropriate intragastric position. A right upper extremity PICC line is present with its tip projecting over the expected location of the superior vena cava. Bones No acute osseous abnormality is identified. IMPRESSION * Mild cardiomegaly with increasing pulmonary vascular congestion and bilateral basal-predominant interstitial and early alveolar pulmonary edema compared to the prior study. * Small left pleural effusion. * Right upper extremity PICC with tip in the expected location of the superior vena cava; endotracheal and nasogastric tubes in satisfactory positions. /[place] DICTATED BY: LARISSA LEMONS Jr., MD DATE: 02/18/251444 ELECTRONICALLY SIGNED BY: LARISSA LEMONS Jr., MD DATE: 02/18/251444 PATIENT: CHARY HERNANDEZ MR#: [id number] : 1980 SEX: M AGE: 44 LOCATION: 2CH ORDER 2300 STATUS: ADM IN REPORT#: [id number] SERVICE 06 REASON: Pneumonia ORDERING PHYSICIAN: DAVEY MANRIQUE MD PROCEDURE: CXR1VW - CHEST 1VW EXAM: CR Chest, 1 View. CLINICAL HISTORY: Pneumonia. COMPARISON: February 15, 2025. FINDINGS: LUNGS: Stable mild cardiomegaly, non-homogeneous haziness in bilateral lower lung zones with possible mild left pleural effusion, possibly representing changes of cardiac congestion. BONES: No acute osseous abnormality. IMPRESSION: Stable mild cardiomegaly, non-homogeneous haziness in bilateral lower lung zones with possible mild left pleural effusion, possibly representing changes of cardiac congestion. /[place] DICTATED BY: LARISSA LEMONS Jr., MD DATE: 02/18/2520 ELECTRONICALLY SIGNED BY: LARISSA LEMONS Jr., MD DATE: 02/18/2520 PATIENT: CHARY HERNANDEZ MR#: [id number] : 1980 SEX: M AGE: 44 LOCATION: 2[facility] ORDER 2326 STATUS: ADM IN REPORT#: [id number] SERVICE 06 REASON: pneumonia ORDERING PHYSICIAN: DAVEY MANRIQUE MD PROCEDURE: CXR1VW - CHEST 1VW EXAM: CR Chest, 1 View. CLINICAL HISTORY: pneumonia COMPARISON: 02/15/2025 FINDINGS: The endotracheal tube with its tip 6 cm away from the catina. The right PICC line tip overlying the SVC. The nasogastric catheter is seen up to the proximal stomach. LUNGS: The lungs appear essentially clear apart from bibasilar atelectasis. No new lung infiltrates or consolidation. PLEURAL SPACES: No evidence of pleural effusion or pneumothorax. MEDIASTINUM: Cardiac size is stable. Slight interval improvement in mild pulmonary congestion. BONES: No acute osseous abnormality. IMPRESSION: Mild pulmonary congestion, slightly improved. No new lung infiltrates or consolidation. Endotracheal tube tip 6 cm from the catina. /[place] DICTATED BY: LARISSA LEMONS Jr., MD DATE: 02/16/251128 ELECTRONICALLY SIGNED BY: LARISSA LEMONS Jr., MD DATE: 02/16/251128 PATIENT: CHARY HERNANDEZ MR#: [id number] : 1980 SEX: M AGE: 44 LOCATION: 2[facility] ORDER 1 STATUS: ADM IN REPORT#: [id number] SERVICE REASON: Pneumonia ORDERING PHYSICIAN: ASHA JOHNSON MD PROCEDURE: CXR1VW - CHEST 1VW EXAM: CR CHEST, 1 VIEW CLINICAL HISTORY: RESP FAILURE COMPARISON: Previous study dated 02/14/2025 TECHNIQUE: Single frontal radiograph of the chest was obtained. The study is performed in semi-erect position. FINDINGS: Lines/Devices: The endotracheal tube with its tip 5 cm away from the catina. The right PICC line tip overlying the SVC. The nasogastric catheter is seen up to the proximal stomach. Lungs: The lungs appear essentially clear apart from bibasilar atelectasis. No consolidation or ground-glass opacities are observed. Mild pulmonary congestion is seen similar compared to prior exam. Pleural Spaces: No definite pleural effusion or pneumothorax. Mediastinum and cardiovascular structures: Cardiac size is stable. There are calcific atherosclerotic plaques in the aorta. The central airway and mediastinal contours are unremarkable. Bones and soft tissues: No acute osseous abnormality. Soft tissues are unremarkable. IMPRESSION: Compared to previous study dated 02/14/2025; the current study shows: 1. Mild pulmonary congestion is seen similar compared to prior exam. Mild stable bibasilar atelectasis. 2. No appreciable time interval changes with stable findings since last study. /[place] DICTATED BY: LEXX GRIGGS MD DATE: 02/16/2527 ELECTRONICALLY SIGNED BY: LEXX GRIGGS MD DATE: 02/16/2527 PATIENT: CHARY HERNANDEZ MR#: [id number] : 1980 SEX: M AGE: 44 LOCATION: 2CH ORDER 3 STATUS: ADM IN REPORT#: [id number] SERVICE 8 REASON: Ultrasound of liver ORDERING PHYSICIAN: TIFFANI HIRSCH MD PROCEDURE: ABDRUQLTD - US ABDOMINAL RUQ\LTD EXAMINATION: ULTRASOUND OF THE ABDOMEN (LIMITED) WITH COLOR DOPPLER. CLINICAL HISTORY: To evaluate liver. COMPARISON: None. TECHNIQUE: Real-time grayscale ultrasound images of the abdomen. In addition, color Doppler is medically necessary to perform in order to evaluate vascularity and blood flow. FINDINGS: Liver: Normal in caliber, the right hepatic lobe measures 15.9 cm in the craniocaudal dimension. There is increased echogenicity of the hepatic parenchyma. There is no focal hepatic abnormality or intrahepatic biliary ductal dilatation. There is normal spectral Doppler of the main portal vein. The left lobe is not well visualized. Gallbladder: Within normal limits with normal wall thickness (0.17 cm). No hyperemia or pericholecystic free fluid. There is no cholelithiasis. Common bile duct is normal in caliber, measuring 0.45 cm. Pancreas: Normal in caliber and echotexture. No calcification or dilated pancreatic duct. The right kidney is normal in caliber, the right kidney measures 13.9 x 6.5 x 7.0 cm in craniocaudal, AP, and transverse dimensions respectively. There is normal renal cortical thickness, and cortical echogenicity. There is no renal calculus or hydronephrosis. IMPRESSION:Hepatic steatosis. /[place] DICTATED BY: LARISSA LEMONS Jr., MD DATE: 02/16/2514 ELECTRONICALLY SIGNED BY: LARISSA LEMONS Jr., MD DATE: 02/16/2514 PATIENT: CHARY HERNANDEZ MR#: [id number] : 1980 SEX: M AGE: 44 LOCATION: 2CH ORDER 2300 STATUS: ADM IN REPORT#: [id number] SERVICE 06 REASON: RESP FAILURE ORDERING PHYSICIAN: EDDIE CLARK MD PROCEDURE: CXR1VW - CHEST 1VW EXAM: CR Chest, 2 View. CLINICAL HISTORY: RESP FAILURE COMPARISON: 02/13/2025; 19:51 EST FINDINGS: The endotracheal tube with its tip 5 cm away from the catina. The right PICC line tip overlying the SVC The nasogastric catheter is seen up to the proximal stomach. LUNGS: The lungs appear essentially clear apart from bibasilar atelectasis. PLEURAL SPACES: No definite pleural effusion or pneumothorax. MEDIASTINUM: Cardiac size is stable. BONES: No acute osseous abnormality. IMPRESSION: 1. No acute cardiopulmonary findings. Mild stable bibasilar atelectasis. 2. Endotracheal tube tip 5 cm from catina. 3. Right PICC line tip overlying SVC. 4. Nasogastric catheter to the proximal stomach. /[place] DICTATED BY: LARISSA LEMONS Jr., MD DATE: 02/15/252358 ELECTRONICALLY SIGNED BY: LARISSA LEMONS Jr., MD DATE: 02/15/252358 PATIENT: CHARY HERNANDEZ MR#: [id number] : 1980 SEX: M AGE: 44 LOCATION: 2CH ORDER 37 STATUS: ADM IN REPORT#: [id number] SERVICE 35 REASON: ET Tube Advanced ORDERING PHYSICIAN: BIANCA WICK PROCEDURE: CXR1VW - CHEST 1VW EXAM: CR Chest, 1 View. CLINICAL HISTORY: ET Tube Advanced COMPARISON: 02/13/2025; 5:04 EST FINDINGS: The endotracheal tube with its tip 5.2 cm away from the catina. The right PICC line tip overlying the SVC The nasogastric catheter is seen up to the proximal stomach. LUNGS: Essentially stable appearance of bilateral lung curtis. PLEURAL SPACES: No pleural effusion or pneumothorax. MEDIASTINUM: Cardiac size is stable. BONES: No aggressive appearing osseous lesion seen. IMPRESSION: 1. Endotracheal tube tip 5.2 cm from catina. 2. Right PICC line tip overlying SVC. 3. Nasogastric tube in the proximal stomach. 4. Essentially stable appearance of bilateral lung curtis. /[place] DICTATED BY: LARISSA LEMONS Jr., MD DATE: 02/14/25720 ELECTRONICALLY SIGNED BY: LARISSA LEMONS Jr., MD DATE: 02/14/25720 PATIENT: CHARY HERNANDEZ MR#: [id number] : 1980 SEX: M AGE: 44 LOCATION: [facility] ORDER 230 STATUS: ADM IN REPORT#: [id number] SERVICE 0600 REASON: pneumonia ORDERING PHYSICIAN: NETO STARR PROCEDURE: CXR1VW - CHEST 1VW EXAM: CR Chest, 1 View. CLINICAL HISTORY: pneumonia COMPARISON: 02/12/2025 FINDINGS: The right PICC line tip overlying the SVC Endotracheal tube with its tip 3.9 cm short of the catina. The nasogastric catheter is seen up to the proximal stomach. LUNGS: Interval improvement in the bilateral lung aeration, with an interval decrease in the left lower zone infiltrates. PLEURAL SPACES: No evidence of pleural effusion or pneumothorax. MEDIASTINUM: Cardiac size is stable. BONES: No acute osseous abnormality. IMPRESSION: 1. Interval improvement in bilateral lung aeration, with decreased left lower zone infiltrates. 2. Right PICC line tip overlying the SVC, endotracheal tube tip 3.9 cm proximal to the catina, and nasogastric catheter tip in the proximal gastric body. /[place] DICTATED BY: LARISSA LEMONS Jr., MD DATE: 02/13/251717 ELECTRONICALLY SIGNED BY: LARISSA LEMONS Jr., MD DATE: 02/13/251717 PATIENT: CHARY HERNANDEZ MR#: [id number] : 1980 SEX: M AGE: 44 LOCATION: 2CH ORDER 230 STATUS: ADM IN REPORT#: [id number] SERVICE 0600 REASON: PNEUMONIA ORDERING PHYSICIAN: NETO STARR PROCEDURE: CXR1VW - CHEST 1VW EXAM: CR CHEST, 1 VIEW CLINICAL HISTORY: pneumonia, Endotracheal tube placement. COMPARISON: CR: CHEST 1VW dated 02/11/2025 3:36 [employer] TECHNIQUE: Single frontal radiograph of the chest was obtained. Mild patient's rotation during the image acquisition is present. FINDINGS: Lines/Devices: Right sided PICC line with its tip overlying the proximal superior vena cava. Endotracheal tube with its tip 5 cm short of catina. Nasogastric catheter with its tip overlying the stomach in the region of the proximal gastric body. Lungs: Almost stationary degree of pulmonary parenchymal congestion on left side, being mild. Persistent left lower lobar lung infiltrates, which may represent atelectasis/consolidation. No right sided pleural effusion. Mild left sided pleural effusion causing opacification of the left hemithorax. There is no pneumothorax. Mediastinum and cardiovascular structures: Moderate cardiomegaly. There are calcific atherosclerotic plaques in the aorta. The central airway and mediastinal contours are unremarkable. Bones and soft tissues: Unremarkable. IMPRESSION: In comparison with the previous chest radiograph dated February 11, 2025, the current radiograph demonstrates: 1. Mild left sided pleural effusion causing opacification of the left hemithorax. Persistent left lower lobar lung infiltrates, which may represent atelectasis/consolidation. 2. Stable endotracheal tube, the right sided PICC line and the nasogastric catheter. 3. Stationary degree of pulmonary parenchymal congestion. /[place] DICTATED BY: LEXX GRIGGS MD DATE: 02/13/2551 ELECTRONICALLY SIGNED BY: LEXX GRIGGS MD DATE: 02/13/2551 PATIENT: CHARY HERNANDEZ MR#: [id number] : 1980 SEX: M AGE: 44 LOCATION: 2CH ORDER 99 STATUS: ADM IN REPORT#: [id number] SERVICE 9 REASON: pp ORDERING PHYSICIAN: BIANCA WICK PAC PROCEDURE: CXR1VW - CHEST 1VW EXAM: CR CHEST, 1 VIEW CLINICAL HISTORY: Endotracheal tube placement. COMPARISON: None provided TECHNIQUE: Single frontal radiograph of the chest was obtained. Gross patient's rotation during the image acquisition is present. FINDINGS: Lines/Devices: Right sided PICC line with its tip overlying the proximal superior vena cava. Endotracheal tube with its tip 5.3 cm short of catina. Nasogastric catheter with its tip overlying the stomach in the region of the proximal gastric body. Lungs: Interval reduction in the degree of pulmonary parenchymal congestion with clearing of the infiltrates from the right lung. Persistent left lower lobar lung infiltrates, which may represent atelectasis/consolidation. No right sided pleural effusion. Moderate sized left sided pleural effusion causing opacification of the left hemithorax. There is no pneumothorax. Mediastinum and cardiovascular structures: Moderate cardiomegaly. There are calcific atherosclerotic plaques in the aorta. The central airway and mediastinal contours are unremarkable. Bones and soft tissues: Unremarkable. IMPRESSION: In comparison with the previous chest radiograph dated February 10, 2025, the current radiograph demonstrates: 1. Stable endotracheal tube, the right sided PICC line and the nasogastric catheter. 2. Moderate sized left sided pleural effusion causing opacification of the left hemithorax. Persistent left lower lobar lung infiltrates, which may represent atelectasis/consolidation. 3. Interval reduction in the degree of pulmonary parenchymal congestion with resolution of the infiltrates from the right lung. /[place] DICTATED BY: LEXX GRIGGS MD DATE: 02/12/25432 ELECTRONICALLY SIGNED BY: LEXX GRIGGS MD DATE: 02/12/25432 PATIENT: CHARY HERNANDEZ MR#: [id number] : 1980 SEX: M AGE: 44 LOCATION: 2CH ORDER 99 STATUS: ADM IN REPORT#: [id number] SERVICE 9 REASON: pp ORDERING PHYSICIAN: BIANCA WICK PROCEDURE: CXR1VW - CHEST 1VW EXAM: CR Chest, 1 View. CLINICAL HISTORY: Endotracheal tube. COMPARISON: 02/09/2025 FINDINGS: The endotracheal tube is seen with its tip terminating about 5.6 cm above the catina. The nasogastric tube is seen in the left hemidiaphragm; the tip is not visualized. LUNGS: Mild interval reduction in the aeration of both lungs. PLEURAL SPACES: No definite pleural effusion or pneumothorax. MEDIASTINUM: Cardiac size is stable. BONES: No aggressive appearing osseous lesion seen. IMPRESSION: 1. Endotracheal tube tip 5.6 cm above the catina. 2. Mild interval reduction in the aeration of both lungs. /[place] DICTATED BY: LARISSA LEMONS Jr., MD DATE: 02/10/251510 ELECTRONICALLY SIGNED BY: LARISSA LEMONS Jr., MD DATE: 02/10/251510 PATIENT: CHARY HERNANDEZ MR#: [id number] : 1980 SEX: M AGE: 44 LOCATION: [facility] ORDER 99 STATUS: ADM IN REPORT#: [id number] SERVICE 9 REASON: Respirateory failure ORDERING PHYSICIAN: NETO STARRCNP PROCEDURE: CXR1VW - CHEST 1VW EXAM: CR Chest, 1 View. CLINICAL HISTORY: Respiratory failure COMPARISON: 02/08/2025 FINDINGS: The endotracheal tube is seen with its tip terminating about 5.4 cm above the catina. The nasogastric tube is seen in the left hemidiaphragm; the tip is not visualized. LUNGS: Essentially stable appearance of bilateral lung curtis, with persistent right basilar and diffuse left lung airspace disease. PLEURAL SPACES: No evidence of pleural effusion or pneumothorax. MEDIASTINUM: The cardiac size is stable. BONES: No aggressive appearing osseous lesion seen. IMPRESSION: 1. Endotracheal tube tip 5.4 cm above catina. 2. Nasogastric tube is demonstrated below the left hemidiaphragm; the tip is not visualized. 3. Essentially stable appearance of bilateral lung curtis, with persistent right basilar and diffuse left lung airspace disease. /[place] DICTATED BY: LARISSA LEMONS Jr., MD DATE: 02/09/25 1058 ELECTRONICALLY SIGNED BY: LARISSA LEMONS Jr., MD DATE: 02/09/25 105 PATIENT: CHARY HERNANDEZ MR#: [id number] : 1980 SEX: M AGE: 44 LOCATION: [facility] ORDER 230 STATUS: ADM IN REPORT#: [id number] SERVICE 0600 REASON: pp ORDERING PHYSICIAN: BIANCA WICK PAC PROCEDURE: CXR1VW - CHEST 1VW EXAM: CR Chest, 1 View. CLINICAL HISTORY: Follow up COMPARISON: 02/07/2025 FINDINGS: The endotracheal tube tip is 6.8 cm away from the catina. The nasogastric tube is seen below the left hemidiaphragm; the tip is not visualized. LUNGS: Essentially stable appearance of the bilateral lung curtis with mild bibasilar atelectasis and questionable small bilateral pleural effusions. PLEURAL SPACES: No evidence of pneumothorax. MEDIASTINUM: Cardiac size is stable. Mild stable pulmonary vascular congestion. BONES: No acute osseous abnormality. IMPRESSION: 1. Stable appearance of bilateral lung curtis with mild bibasilar atelectasis and questionable small bilateral pleural effusions. 2. Endotracheal tube tip 6.8 cm from catina. 3. Nasogastric tube below left hemidiaphragm, tip not visualized. /[place] DICTATED BY: LARISSA LEMONS Jr., MD DATE: 02/09/25 1110 ELECTRONICALLY SIGNED BY: LARISSA LEMONS Jr., MD DATE: 02/09/25 111 PATIENT: CHARY HERNANDEZ MR#: [id number] : 1980 SEX: M AGE: 44 LOCATION: [facility] ORDER 2300 STATUS: ADM IN REPORT#: [id number] SERVICE 0600 REASON: pp ORDERING PHYSICIAN: BIANCA WICK PAC PROCEDURE: CXR1VW - CHEST 1VW EXAM: CR Chest, 2 View. CLINICAL HISTORY: Intubated. COMPARISON: 02/06/2025 FINDINGS: The endotracheal tube is seen with its tip terminating about 6.7 cm above the catina. The nasogastric tube terminates in the proximal stomach. LUNGS: Interval improvement in basilar predominant bilateral diffuse airspace disease is present. PLEURAL SPACES: No definite pleural effusion or pneumothorax. MEDIASTINUM: Cardiac size is stable. BONES: No aggressive appearing osseous lesion seen. IMPRESSION: 1. Interval improvement in bilateral basilar predominant airspace disease. 2. Endotracheal tube tip positioned 6.7 cm above catina. 3. The nasogastric tube terminates in the proximal stomach. /[place] DICTATED BY: LARISSA LEMONS Jr., MD DATE: 02/07/251748 ELECTRONICALLY SIGNED BY: LARISSA LEMONS Jr., MD DATE: 02/07/251748 PATIENT: CHARY HERNANDEZ MR#: [id number] : 1980 SEX: M AGE: 44 LOCATION: [facility] ORDER 1341 STATUS: ADM IN REPORT#: [id number] SERVICE 1337 REASON: JUAN ORDERING PHYSICIAN: DARBY PORRAS MD PROCEDURE: RENAL - US RENAL SONOGRAM EXAMINATION: ULTRASOUND OF THE RETROPERITONEUM. CLINICAL HISTORY: JUAN. COMPARISON: None. TECHNIQUE: Real-time grayscale ultrasound images of the kidneys. FINDINGS: The kidneys are normal in caliber, the right kidney measures 12.9 x 6.5 x 6.5 cm and the left kidney measures 11.0 x 5.6 x 5.5 cm in its craniocaudal, AP, and transverse dimensions respectively. There is normal renal cortical thickness, and cortical echogenicity. There is no renal calculus or hydronephrosis. The urinary bladder is partially distended with mild wall thickening (0.6 cm). There are no calculi in the urinary bladder. IMPRESSION: Urinary bladder wall thickening of concern for cystitis. /[place] DICTATED BY: LARISSA LEMONS Jr., MD DATE: 02/07/25716 ELECTRONICALLY SIGNED BY: LARISSA LEMONS Jr., MD DATE: 02/07/25716 PATIENT: CHARY HERNANDEZ MR#: [id number] : 1980 SEX: M AGE: 44 LOCATION: [facility] ORDER 1118 STATUS: ADM IN REPORT#: [id number] SERVICE 114 REASON: post intubation ORDERING PHYSICIAN: COMPA PATRICK MD PROCEDURE: CXR1VW - CHEST 1VW EXAM: CR Chest, 2 View. CLINICAL HISTORY: post intubation COMPARISON: Radiograph from February 04, 2025 FINDINGS: Endotracheal tubes in satisfactory position, tip terminating 3.5 cm above the catina. Right PICC terminates overlying the SVC. Bibasilar airspace disease may reflect an infectious process. No pleural effusion or pneumothorax. Heart size is stable. Pulmonary vessels are within normal limits. IMPRESSION: 1. Endotracheal tube and right PICC line in satisfactory positions. 2. Bibasilar airspace disease, possibly infectious. /[place] DICTATED BY: LARISSA LEMONS Jr., MD DATE: 02/05/251408 ELECTRONICALLY SIGNED BY: LARISSA LEMONS Jr., MD DATE: 02/05/251408 PATIENT: CHARY HERNANDEZ MR#: [id number] : 1980 SEX: M AGE: 44 LOCATION: [facility] ORDER 9 STATUS: ADM IN REPORT#: [id number] SERVICE REASON: ngt placement for TF ORDERING PHYSICIAN: ISAC MATHEW MD PROCEDURE: ABD 1VW - ABD 1VW EXAM: CR Abdomen, 1 View. CLINICAL HISTORY: ngt placement for TF COMPARISON: None provided. FINDINGS: BOWEL: The transverse colon is filled with gas and fecal content could be due to constipation Nasogastric tubes projecting below lthe eft hemidiaphragm in the stomach PERITONEUM/SOFT TISSUES: No free air evident. No pathologic appearing calcification. BONES: No acute osseous abnormality. IMPRESSION: The nasogastric tube is projected below the left hemidiaphragm over the stomach, tip is located in the body portion of the stomach Gas and fecal-loaded transverse colon consistent with constipation /[place] DICTATED BY: LARISSA LEMONS Jr., MD DATE: 02/03/251138 ELECTRONICALLY SIGNED BY: LARISSA LEMONS Jr., MD DATE: 02/03/251138 PATIENT: CHARY HERNANDEZ MR#: [id number] : 1980 SEX: M AGE: 44 LOCATION: [facility] ORDER 1 STATUS: ADM IN REPORT#: [id number] SERVICE 0426 REASON: hypoxia ORDERING PHYSICIAN: BIANCA GARCIA AGACN PROCEDURE: ECHO CMP - ECHO 2-D COMPLETE APPROVED REPORT EXAM: Two-dimensional and M-mode echocardiogram with Doppler and color Doppler. INDICATION ICD: R06.02 Shortness of breath 2D Dimensions RVDd 4.5 cm LVEF(%) 58.7 (>50%) LVED Vol(simp.) 152.0 mL IVSd 1.2 (0.7-1.1cm) FS(%) 32 % LVES Vol(simp.) 70.0 mL LVDd 6.1 (3.8-5.6cm) LA (2D) 4.0 (1.6-4.0cm) LVEF(%, simp.) 54 % PWd 0.8 (0.7-1.1cm) Ao Root(2D) 3.4 (2.0-3.7cm) LA ESV INDEX (BP) 26.38 mL/m2 IVSs 1.5 cm LVOT diam 2.7 (1.8-2.4cm) LVDs 4.1 (2.5-4.0cm) IVC diam 2.7 cm PWs 1.1 cm Deformation Strain Apical 4 -16.1 % Apical 2 -16.4 % Apical 3 -17.4 % Global Strain -16.6 % M-Mode Dimensions EPSS 0.3 cm LA (MM) 4.2 (1.6-4.0cm) Ao Root(MM) 4.0 (2.0-3.7cm) Aortic Valve AoV Vmax 1.4 m/s Ao Peak GR 7.3 mmHg LVOT Vmax 1.2 m/s AoV VTI 0.3 m Ao Mean GR 4.7 mmHg LVOT VTI 0.23 m MINH (VMAX) 5.28 cm2 MINH (VTI) 5.3 cm2 Mitral Valve MV E Vmax 88.4 cm/s DECEL Time 146 ms MV A Vmax 76.4 cm/s P 1/2 T 41 ms E/A ratio 1.2 MVA (PHT) 5.4 cm2 TDI E/E' Medial 10.2 E/E' Lateral 10.5 Medial E' Peak V 8.64 cm/s Lateral E' Peak V 8.43 cm/s Pulmonary Valve PV Vmax 0.8 m/s PV Peak GR 2.3 mmHg Tricuspid Valve TR Vmax 1.1 m/s RAP (EST) 8 mmHg RVSP 12.9 mmHg TR Peak GR 4.9 mmHg Left Ventricle The left ventricle is normal size. GLS -16.0% There is normal LV segmental wall motion. There is mild left ventricular wall thickness. LVEF is 55%. The LV diastolic function was unable to be assessed due to atrial arrhythmia. Right Ventricle The right ventricle is normal size. The right ventricular systolic function is normal. Atria The left atrium size is normal. The right atrium size is normal. Aortic Valve The aortic valve is normal in structure. No aortic regurgitation is present. There is no aortic valvular stenosis. Mitral Valve The mitral valve is normal in structure. There is trace of mitral valve regurgitation noted. There is no mitral valve stenosis. Tricuspid Valve The tricuspid valve is normal in structure. There is no tricuspid valve regurgitation noted. Pulmonic Valve The pulmonary valve is normal in structure. There is mild pulmonic valvular regurgitation. Great Vessels The aortic root is normal in size. IVC is dilated and collapses >50% with inspiration. Pericardium There is no pericardial effusion. Other Information Quality : Technically diffcult study due to body habitus Conclusion LVEF is 55%. DICTATED BY: CAROL GALLAGHER MD DATE: 01/31/25844 ELECTRONICALLY SIGNED BY: CAROL GALLAGHER MD DATE: 01/31/252052 PATIENT: CHARY HERNANDEZ MR#: [id number] : 1980 SEX: M AGE: 44 LOCATION: [facility] ORDER STATUS: [facility] REPORT#: [id number] SERVICE REASON: r/o DVT ORDERING PHYSICIAN: BIANCA GARCIA PROCEDURE: VENOUS GRACIE - US VENOUS DOPPLER BILATERAL EXAM: US for Deep Venous Thrombosis, bilateral Lower Extremity. CLINICAL HISTORY: Rule out deep venous thrombosis. TECHNIQUE: Real-time ultrasound scan of the veins of the bilateral lower extremity with color Doppler flow, spectral waveform analysis and compression. COMPARISON: None provided. FINDINGS: DEEP VEINS: The common femoral, superficial femoral, and popliteal veins are echolucent and compressible. There is normal color Doppler flow throughout. The visualized calf veins appear patent. SOFT TISSUES: No popliteal fossa cyst or other abnormalities. IMPRESSION: No deep venous thrombosis is evident on bilateral lower extremity examination. /[place] DICTATED BY: LARISSA LEMONS Jr., MD DATE: 01/31/25400 ELECTRONICALLY SIGNED BY: LARISSA LEMONS Jr., MD DATE: 01/31/25400 PATIENT: CHARY HERNANDEZ MR#: [id number] : 1980 SEX: M AGE: 44 LOCATION: [facility] ORDER STATUS: ADM IN REPORT#: [id number] SERVICE REASON: r/o P.E. ORDERING PHYSICIAN: BIANCA GARCIA PROCEDURE: CHES PE - CT CHEST PE PROTOCOL WWO CONT EXAMINATION: CT Chest, with intravenous contrast CLINICAL HISTORY: Patient presents to rule out pulmonary embolism. TECHNIQUE: Axial computed tomography images of the chest, with intravenous contrast. Multiplanar reformations were generated and reviewed. CONTRAST: With intravenous contrast. COMPARISON: None provided. FINDINGS: CHEST: LUNGS: The lungs demonstrate extensive diffuse consolidation and airspace opacities and ground-glassing throughout the bilateral lungs, predominantly involving the lower lobes and perihilar regions. No pulmonary mass. PLEURAL SPACES: No pneumothorax or pleural effusion. CARDIOVASCULAR: Cardiomegaly is present. No significant pericardial effusion. The main pulmonary artery measures 3.2 cm. The right pulmonary artery measures 2 cm. The left pulmonary artery measures 2.2 cm. The pulmonary arteries show no evidence of filling defects. Normal caliber thoracic aorta. MEDIASTINUM AND SILVINO: No mediastinal or hilar lymphadenopathy. ABDOMEN : Hepatosplenomegaly BONES: No acute or aggressive osseous abnormality. IMPRESSION: No acute pulmonary embolism. Extensive diffuse bilateral pulmonary airspace opacities, predominantly in the lower lobes and perihilar regions, consistent with pulmonary edema. Cardiomegaly with mild pulmonary arterial hypertension. Hepatosplenomegaly. /[place] DICTATED BY: LARISSA LEMONS Jr., MD DATE: 01/31/25803 ELECTRONICALLY SIGNED BY: LARISSA LEMONS Jr., MD DATE: 01/31/25803 ASSESSMENT: Hyperkalemia Acute renal failure Acute hypoxemic and hypercarbic respiratory failure now with worsening respiratory distress ARDS Community-acquired pneumonia suspected Pneumocystis Toxic metabolic encephalopathy on admission Acute sepsis on admission without septic shock secondary to community-acquired pneumonia HIV positive newly diagnosed stage IV. Not on anti-retroviral medication CD4 count: 19 Immunocompromise status Suspected TB Obstructive sleep apnea, untreated/undiagnosed Morbid obesity, BMI 33.6 Volume overload PLAN: Labs, diagnostic, radiologic exams reviewed and interpreted by myself and supervising physician. We have reviewed external records in detail There is no need for emergent renal replacement therapy at this time. Low dose potassium replacement ordered for potassium <3.5 mmol/L Continue with close monitoring of electrolytes and renal function Order CBC, CMP, and electrolytes in am Continue with antibiotics as per ID Continue mechanical ventilation and sedation IV pressors as needed Monitor blood pressure adjust medication doses as needed May use Dilaudid 0.5 mg IV every 6 hours as needed for severe pain Monitor blood sugars Strict intake, output, and daily weight should be monitored Please renally adjust medications Avoid nephrotoxic and nonsteroidal drugs Avoid contrast if possible Will continue to monitor renal function, anemia, electrolytes Treatment plan discussed with patient Questions were answered We have discussed with the other team physicians in detail about the care plan We will continue to monitor the patient closely Total critical care time spent with patient, nursing staff, critical care team over 35 minutes ATTESTATION BY PHYSICIAN I have seen and examined the patient. I reviewed the documentation, medical decision making, and treatment plan as noted by the mid-level provider above. I agree with the findings and plan of care. DARBY PORRAS MD, [facility] Feb 19, 2025 09:58
[2025-02-19 16:55] LABS: ABG BASE EXCESS -19.3 mmol/L (-2.0-3.0); ABG HCO3 11.3 mmol/L (21.0-28.0); ABG OXYGEN SATURATION 98.3 % (94.0-98.0); ABG PCO2 48 mmHg (35-48); CARBON MONOXIDE 0.2 % (0.5-1.5); DEVICE COMMENT RR RN LEO; PO2, ARTERIAL BG 174.6 mmHg (83.0-108.0); TEMPERATURE, CELSIUS BG 37.0 CELSIUS (35.5-37.0)
[2025-02-19 17:07] LABS: ABG PH 6.991 (7.350-7.450)
--- NOTE | 2025-02-19 17:26 | PN ---
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 Succinate (Solu-medROL 40MG) 40 mg Q8H IVP 01/31/25 04:30 02/02/25 11:57 DC 02/02/25 11:47 40 MG Methylprednisolone Sodium Succinate (Solu-medROL 40MG) 60 mg Q6H IVP 02/02/25 12:00 02/07/25 15:17 DC 02/07/25 11:27 60 MG Metoclopramide HCl (regLAN 10MG IV) 10 mg Q8H IVP 02/06/25 16:00 03/08/25 15:59 02/19/25 16:11 10 MG Metoprolol Tartrate (loprESSOR) 5 mg Q6H PRN IV INCREASED HEART RATE >120 BPM 02/19/25 14:30 03/21/25 14:29 02/19/25 14:42 5 MG Morphine Sulfate (morPHINE 2MG SYG) 2 mg ONCE STAT IVP 01/31/25 05:41 01/31/25 05:45 DC 01/31/25 05:51 2 MG Multi-Ingred Cream/Lotion/Oil/ Oint (Artificial Tears Eye Oint) Apply ointment to both e... Q4H OU 01/31/25 15:00 03/02/25 14:59 02/19/25 16:11 1 APPL Norepinephrine Bitartrate (Norepineph 16 Mg/250ml NS Premix) Continuous PROTOCOL IV 02/11/25 15:30 03/13/25 15:29 02/15/25 20:11 0.001 MG Norepinephrine Bitartrate (Norepineph 16 Mg/250ml NS Premix) sbp>90 PROTOCOL IV 02/05/25 11:30 02/11/25 15:27 DC Ondansetron HCl (zoFRAN 4MG INJ) 4 mg Q6H PRN IV NAUSEA/VOMITING 01/30/25 20:00 03/01/25 19:59 02/09/25 08:28 4 MG Pantoprazole Sodium (PROTonix 40MG INJ) 40 mg DAILY IVP 02/12/25 09:00 03/14/25 08:59 02/19/25 08:17 40 MG Pharmacy Profile Note (Pharmacy Communication) 1 each ONCE MISC 02/05/25 11:30 02/05/25 11:23 DC Pharmacy Profile Note (Pharmacy Communication) 1 each ONCE MISC 02/16/25 11:00 02/16/25 11:08 DC Pharmacy Profile Note (Pharmacy Communication) 1 each ONCE MISC 02/10/25 14:00 02/10/25 14:21 DC Piperacillin Sod/ Tazobactam Sod (Zosyn 3.375gm+NS 50ml) 3.375 gm Q8H IVPB 01/31/25 09:30 01/31/25 12:56 DC 01/31/25 11:04 3.375 GM Piperacillin Sod/ Tazobactam Sod (Zosyn 3.375gm+NS 50ml) 3.375 gm ZOSY8 IVPB 01/31/25 13:00 02/01/25 13:33 DC 02/01/25 11:54 3.375 GM Polyethylene Glycol (MIRalax 3350 17 GM POWD.PACK) 17 gm DAILY PO 02/07/25 11:30 03/09/25 11:29 02/19/25 08:20 17 GM Propofol (DIPRivan 1000MG/ 100ML) 1,000 mg PROTOCOL PRN IV SEDATION 02/05/25 11:30 02/08/25 15:52 DC 02/08/25 08:29 1,000 MG Propofol (DIPRivan 1000MG/ 100ML) 1,000 mg PROTOCOL PRN IV SEDATION 02/15/25 13:30 03/17/25 13:29 02/19/25 17:02 1,000 MG Propofol (DIPRivan 1000MG/ 100ML) 1,000 mg PROTOCOL PRN IV SEDATION 02/12/25 23:30 02/15/25 13:07 DC 02/13/25 08:16 1,000 MG Raltegravir (Isentress) 400 mg BID PO 02/10/25 21:00 03/12/25 20:59 02/19/25 08:20 400 MG Silver Sulfadiazine (Silvadene) 1 APPL BID TP 02/16/25 21:00 03/18/25 20:59 02/19/25 08:21 1 GIORGI Sodium Bicarbonate 150 meq/Dextrose 1,150 ml @ 200 mls/hr Q5H45M IVP 02/16/25 06:30 03/18/25 06:29 02/19/25 16:12 200 MLS/HR Sodium Bicarbonate (Sodium Bicarbonate) 100 mg DAILY PO 02/14/25 12:00 02/14/25 12:35 DC Sodium Bicarbonate (Sodium Bicarb 50meq 50ml Vial) 50 meq Q8H6 IV 02/06/25 14:00 02/07/25 16:00 DC 02/07/25 14:47 50 MEQ Sodium Chloride 1,000 ml @ 100 mls/hr Q10H IV 01/30/25 20:00 01/31/25 05:38 DC 01/30/25 21:18 100 MLS/HR Sodium Chloride (NS 50ml) 50 ml AD IV 02/10/25 06:00 03/12/25 05:59 Sodium Zirconium Cyclosilicate (Lokelma 10gm Powder) 10 gm BID PO 02/09/25 12:00 02/10/25 11:59 DC 02/10/25 08:29 10 GM Sodium Zirconium Cyclosilicate (Lokelma 10gm Powder) 10 gm TID PO 02/10/25 14:00 02/11/25 13:59 DC 02/11/25 08:26 10 GM Trimethoprim/ Sulfamethoxazole 480 mg/Dextrose 500 ml @ 250 mls/hr Q6H IV 01/30/25 21:00 02/01/25 11:57 DC 02/01/25 02:49 250 MLS/HR Trimethoprim/ Sulfamethoxazole 480 mg/Dextrose 500 ml @ 250 mls/hr Q6H IV 02/01/25 12:00 02/10/25 15:05 DC 02/10/25 08:27 250 MLS/HR Trimethoprim/ Sulfamethoxazole 480 mg/Dextrose 500 ml @ 250 mls/hr Q6H IV 02/10/25 16:00 02/20/25 15:59 02/19/25 16:11 250 MLS/HR Trimethoprim/ Sulfamethoxazole / Dextrose 100 ml @ 100 mls/hr AD IV 01/30/25 20:00 02/09/25 19:59 UNV Wound Care/ Dressing Products (Venelex Ointment) BID TP 02/09/25 21:00 02/16/25 16:23 DC 02/16/25 08:36 1 GM DIAGNOSTICS / RADIOLOGY: [ ] ASSESSMENT: Acute hypoxemic respiratory failure POA 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 Acute hypoxemic respiratory failure POA Patient is currently intubated, continue on propofol and fentanyl drips. Chest x-ray on presentation showed diffuse bilateral pneumonia with ARDS type picture. CT chest on presentation showed bilateral airspace opacities involving nearly entire lung curtis raising concern for severe diffuse pneumonia/ARDS like pattern Continue Solu-Medrol 40mg IV bid DuoNeb inhalation q.4h Pulmonology on board, we will continue to follow the recommendations Suspected Pneumocystis Jirovecii Pneumonia (PJP )POA Chest x-ray on presentation showed diffuse bilateral pneumonia with ARDS type picture CT chest showed bilateral airspace opacities involving nearly entire lung curtis raising concern for severe diffuse pneumonia/ARDS like pattern Continue fluconazole 200 mg IV Q 24 , TMP SMX q.6 discontinue cefepime and start Meropenem1 g IV every 8 hours and continue on Bactrim, doxycycline and fluconazole. Pulmonology, Infectious Disease on board. We will follow their recommendations. HIV infection with AIDS as he has a CD4 count of 19 Patient had history of on unsafe sexual practices with multiple partners reported by her sister HIV1 and 2 Ab, HIV P 24 Ag evaluation showed preliminary positive for both HIV1 and 2 antigen/antibody, 4th gen preliminary reactive Absolute CD4 count 19, CD4/CD8 ratio 0.04 HIV 1RNA PCR showed a viral load of [id number] Infectious Disease started Isentress 400 mg b.i.d., travuda tablet p.o. daily on 02/10/2025 Case management working with [facility] for HIV management. ID on board. Sepsis POA On presentation to ED patient's temperature 100.2, pulse 112, respiratory rate 28, lactic acid 2, procalcitonin 1.55 Chest x-ray showed diffuse bilateral pneumonia with ARDS type picture CT chest showed bilateral airspace opacities involving nearly entire lung curtis raising concern for severe diffuse pneumonia/ARDS like pattern Continue fluconazole 200 mg IV Q 24 , TMP SMX q.6 discontinue cefepime and start Meropenem1 g IV every 8 hours and continue on Bactrim, doxycycline and fluconazole. Lactic acid today at 17.5, bicarb dose increased to 200 We will trend white count, lactic acid Uncontrolled hyperglycemia secondary to steroids Blood glucose in the morning was 322 and well elevated likely from steroids. Continue to monitor the blood glucose level. Continue insulin sliding scale. Tuberculosis R/O POA 3 out of 3 sputum samples collected for AFB smear. Sputum sample is sent for respiratory culture, we will follow up with the culture results. No acid-fast bacilli in smear from first 2 samples, studies to continue. GI prophylaxis with Pepcid 20 mg IV DVT prophylaxis with heparin 5000 SQ q.12h ATTESTATION BY PHYSICIAN I have seen and examined the patient. I reviewed the documentation, medical dec ision making, and treatment plan as noted by the resident physician above. I agree with the findings and plan of care. GABY Moya IV, MD, MD Feb 19, 2025 17:26
--- NOTE | 2025-02-19 18:25 | PN ---
[facility] PROGRESS NOTE Date Patient Seen: Feb 19, 2025 Time of Visit: 18:20 Supervising Physician: EMMANUEL CAMARILLO MD Primary Care Physician: [Avi LESTER] Outpatient Specialists: [ ] Inpatient Consults: [Dr. Prince, [facility] team-ICU] PROBLEM LIST: Acute hypoxemic and hypercarbic respiratory failure on admission requiring ETT and mechanical ventilator support ARDS Pneumocystis pneumonia Acute metabolic acidosis Toxic metabolic encephalopathy on admission Acute sepsis on admission without septic shock secondary to community-acquired pneumonia HIV positive newly diagnosed stage IV. Not on anti-retroviral medication Acquired immunodeficiency syndrome Obstructive sleep apnea, untreated/undiagnosed Morbid obesity, BMI 33.6 Acute kidney injury on top of chronic kidney disease INTERVAL HISTORY: Patient is doing worse today compared to yesterday. He is now on 100% FiO2 on the mechanical ventilator He has maximum dosage allowed for Levophed He has maximum dosage allowed for Precedex Continues with hypoxia, continues with hypotension Continues with elevated creatinine and BUN Urine output is 1.2 liters in 24 hours Remains NPO No BM no seizures, no fevers REVIEW OF SYSTEMS: Patient sedated on maximum dose Precedex PHYSICAL EXAM: On mechanical ventilator support via endotracheal tube. Bed ridden and nonverbal, sedated GENERAL: on Vent assistance, responding to self HEENT: EOMI, Sclera non icteric, moist mucosa NECK: Supple, no JVD, trachea midline LUNGS: Bilateral rhonchi HEART: Regular rate and rhythm. Normal S1 and S2, without murmurs ABD: Abdomen soft, nontender. Bowel sounds present, obese EXT: No clubbing cyanosis or edema : Dias in situ NEURO: Sedated Vital Signs (last 8hr) Date Time Temp Pulse Resp B/P (MAP) Pulse Ox O2 Delivery O2 Flow Rate FiO2 02/19/25 17:30 121 21 110/46 (67) 91 60 02/19/25 17:16 97/44 02/19/25 17:15 120 22 103/45 (64) 91 60 02/19/25 17:05 60 02/19/25 17:00 119 25 97/46 (63) 92 60 02/19/25 16:45 116 24 97/44 (61) 93 60 02/19/25 16:30 116 23 105/45 (65) 98 100 02/19/25 16:15 115 23 98/44 (62) 98 100 02/19/25 16:00 97.2 02/19/25 16:00 60 02/19/25 16:00 114 12 99/58 (72) 98 100 02/19/25 16:00 92 Ventilator+ 100 02/19/25 15:45 113 23 99/48 (65) 98 100 02/19/25 15:30 112 24 93/55 (68) 98 100 02/19/25 15:15 112 22 97/47 (64) 98 100 02/19/25 15:00 111 24 99/47 (64) 98 100 02/19/25 14:45 109 23 99/47 (64) 98 100 02/19/25 14:42 129 02/19/25 14:30 106 23 100/55 (70) 98 100 02/19/25 14:16 127 100 02/19/25 14:15 130 23 104/50 (68) 98 100 02/19/25 14:07 128 100 02/19/25 14:00 128 27 108/46 (66) 98 100 02/19/25 13:45 129 23 89/39 (56) 85 100 02/19/25 13:30 129 26 92/43 (59) 86 50 02/19/25 13:15 129 26 95/43 (60) 90 50 02/19/25 13:00 129 25 97/55 (69) 89 50 02/19/25 12:57 87 50 02/19/25 12:45 127 26 95/44 (61) 90 50 02/19/25 12:30 124 50 114/56 (75) 91 50 02/19/25 12:15 123 69 111/51 (71) 91 50 02/19/25 12:00 50 02/19/25 12:00 97.5 02/19/25 12:00 95 Ventilator+ 50 02/19/25 12:00 117 55 113/50 (71) 92 50 02/19/25 11:45 114 53 113/49 (70) 94 50 02/19/25 11:30 108 33 111/45 (67) 94 50 02/19/25 11:15 100 20 109/49 (69) 96 50 02/19/25 11:02 96 16 02/19/25 11:00 100 19 102/51 (68) 96 50 02/19/25 10:45 97 16 100/43 (62) 95 50 12/14/25 10:30 97 17 103/45 (64) 95 50 LABS: Hematology Labs: Test 02/19/25 12:09 02/19/25 04:29 02/18/25 04:55 Range/Units Hemoglobin 8.3 #L 14.0-18.0 g/dL Hematocrit 24.0 #L 42-54 % White Blood Count 2.5 #L 4.8-10.8 K/uL Red Blood Count 2.06 L 4.50-6.20 MIL/uL Mean Corpuscular Volume 85.0 79-99 fL Mean Corpuscular Hemoglobin 30.6 27.0-33.0 pg Mean Corpuscular Hemoglobin Concent 36.0 32.0-36.0 g/dL Red Cell Distribution Width 14.7 11.0-15.5 % Platelet Count 74 L 130-400 K/uL Mean Platelet Volume 10.4 7.5-10.5 fL Nucleated Red Blood Cells 0.8 H 0.0-0.19 % Immature Granulocyte % (Auto) 5.6 H 0-1 % Neutrophils (%) (Auto) 91.3 H 40.0-77.0 % Lymphocytes (%) (Auto) 2.1 L 21.0-51.0 % Monocytes (%) (Auto) 1.0 L 3.0-13.0 % Eosinophils (%) (Auto) 0.0 0.0-8.0 % Basophils (%) (Auto) 0.0 0.0-5.0 % Neutrophils # (Auto) 4.4 1.8-7.7 K/uL Lymphocytes # (Auto) 0.1 L 1.0-4.8 K/uL Monocytes # (Auto) 0.1 0.1-1.0 K/uL Eosinophils # (Auto) 0.00 0.00-0.70 K/uL Basophils # (Auto) 0.00 0.00-0.20 K/uL Absolute Immature Granulocyte (auto 0.27 0-1 K/uL Segmented Neutrophils % 91 H 40-70 % Band Neutrophils % 3 H 0-2 % Lymphocytes % (Manual) 3 L 22-44 % Monocytes % (Manual) 1 L 2-9 % Myelocytes % 1 H 0-0 % Differential Comment MANUAL DIFFERENTIAL Reactive Lymphocytes 1 H 0-0 % White Cell Morphology Comment See comments Platelet Morphology Comment DECREASED Red Blood Cell Morphology ANISO 1+ Chemistry Labs: Test 02/19/25 16:07 02/19/25 04:29 02/18/25 09:55 Range/Units Whole Blood Glucose 161 H 70-110 MG/DL Sodium Level 133 L 136-145 mmol/L Potassium Level 3.5 3.5-5.1 mmol/L Chloride Level 94 L 101-111 mmol/L Carbon Dioxide Level 12 L 21-32 mmol/L Blood Urea Nitrogen 40 H 7-18 mg/dL Creatinine 1.8 H 0.5-1.3 mg/dL Glomerular Filtration Rate Calc 48 >90 mL/min Random Glucose 193 H 70-105 mg/dL Total Calcium 6.4 L 8.5-10.1 mg/dL Total Bilirubin 0.9 # 0.2-1.0 mg/dL Direct Bilirubin 0.2 0.0-0.3 mg/dL Aspartate Amino Transf (AST/SGOT) 114 H 10-37 U/L Alanine Aminotransferase (ALT/SGPT) 82 H 12-78 U/L Alkaline Phosphatase 84 50-136 U/L Total Protein 3.8 L 6.0-8.3 g/dL Albumin 1.2 L 3.5-5.0 g/dL Lactic Acid Level 18.9 H 0.8-2.5 mmol/L DIAGNOSTICS / RADIOLOGY RESULTS: [ ] PLAN Increase PEEP to 12 from 5 continue ventilator support continue Precedex Try to wean off Levophed poor prognosis family updated patient remains full code NEURO: Avoid use of central acting medications will try to wean off sedation PULMONARY: Supplemental 02 as needed Titrate Fio2 to keep Spo2 > or = 90% DuoNebs and CPT as needed IS hourly while awake for pulmonary hygiene Out of bed to chair as tolerated VAP Bundle Vent/BIPAP Settings: [ BIPAP setting 12/11 rate of 18 FiO2 60%. ] CARDIOVASCULAR: Follow hemodynamics. Titrate vasopressor to keep MAP >65 or systolic blood pressure >95mmHg DRIPS: [Precedex ] LINES: [PIV] GI & NUTRITION: Continue nutritional support Aspirations precautions Prokinetic agents and laxatives as needed KIDNEYS & ELECTROLYTES: Strict monitoring of intake and output Daily weights Avoid nephrotoxic agents Monitor electrolytes and replace as needed Dias care-prevent CAUTI per nursing Goal urine output of 30mL/hr or 0.5mL/kg/hr Urine output: [ ] Fluid Balance: [ ] ENDOCRINE: Maintain blood glucose between 100-180 at all times. Insulin sliding scale for blood glucose management INFECTIOUS DISEASE: Trend temperature. Lara-culture if febrile. Micro: [ ] Antibiotics: [Vancomycin 01/30- IV Fluconazole: 01/30- IV Sulfa/TMP: 01/30-] HEMATOLOGY & COAGULATION: Monitor H&H. Keep Hgb > 7 Transfuse 1 unit of PRBC for Hgb < 7 Transfuse 1 pack of platelets of platelets < 20, 000 Watch for any signs and symptoms of bleeding SKIN: Pressure ulcer prevention per facility protocol Rehab: PT/OT Prophylaxis: GI: [Pepcid] DVT: [Heparin ] Code Status: Full Resuscitation Disposition: [ICU ] Total critical care time in the ICU: 35 minutes I personally scribed for EMMANUEL CAMARILLO MD ([email or web address]) on 02/19/25 at 18:25. Electronically submitted by Erick Cruz ([email or web address]). EMMANUEL CAMARILLO MD Feb 19, 2025 18:25
--- NOTE | 2025-02-19 21:18 | NUR ---
spoke with nohemy varghese event planning manager about patient situation, ph at 6.9, currently trending down, no bicarb pushes were given throughout the day, as per halima event planning manager to order 2 amps of sodium bicarb; as to concern for the possibility of going into hyperkalemia due to the acidosis to order a stat CMP, and to recheck ABG at midnight. thank you.
[2025-02-19] MEDS: SODIUM BICARB 50MEQ 50ML VIAL IV ONE (21:27)
[2025-02-19 22:05] LABS: CREATININE 2.1 mg/dL (0.5-1.3); GLOMERULAR FILTR. RATE CALC 40.0 mL/min (>90); GLUCOSE,RANDOM 171.0 mg/dL (70-105); TOTAL PROTEIN, SERUM 4.6 g/dL (6.0-8.3); UREA NITROGEN, BLOOD 48.0 mg/dL (7-18)
--- NOTE | 2025-02-19 22:25 | NUR ---
spoke with nohemy varghese tool designer apprentice, notified him about patient blood pressure not going up despite going up on the levophed, systolic in the 98 patient is tachycardic at 135 currently, quinten
--- NOTE | 2025-02-19 22:26 | NUR ---
systolic in the 80s, okay to start vasopressin as per nohemy varghese np
[2025-02-19] MEDS: ALBUTEROL 0.083% 2.5 MG/3 ML INH IH ONE (22:55)
[2025-02-19 23:04] LABS: ASPARTATE AMINOTRANSFERASE 183.0 U/L (10-37); SODIUM SERUM 136.0 mmol/L (136-145)
[2025-02-20] VITALS (154 sets, daily range): BP systolic 70–141; BP diastolic 29–109; PULSE 98–142; RESP 8–34; TEMP 97.6–98.2; O2SAT 90–96
[2025-02-20 00:09] LABS: ABG BASE EXCESS -19.2 mmol/L (-2.0-3.0); ABG HCO3 11.1 mmol/L (21.0-28.0); ABG OXYGEN SATURATION 92.3 % (94.0-98.0); ABG PCO2 46 mmHg (35-48); CARBON MONOXIDE 0.2 % (0.5-1.5); PO2, ARTERIAL BG 84.4 mmHg (83.0-108.0); TEMPERATURE, CELSIUS BG 37.0 CELSIUS (35.5-37.0); VENT MODE, BG AC (ROOM AIR)
[2025-02-20] MEDS ORDERED: ALBUMIN (HUMAN) 5% 500 ML IV SCH (00:30)
--- NOTE | 2025-02-20 00:33 | NUR ---
spoke with enrike isaacs tug master, let him know about the repeat abg that took place at midnight, as per enrike isaacs to increase respiratory rate to 20, give 3amps of bicarb, and to give a 500 albumin 5% bolus
[2025-02-20] MEDS: ALBUMIN (HUMAN) 5% 500 ML IV ONE (00:51)
[2025-02-20] MEDS: SODIUM BICARB 50MEQ 50ML VIAL IV ONE ×5 (00:51→13:00)
[2025-02-20] MEDS: CALCIUM GLUC 1GM 2 GM in 0.9%NACL 100ML 100 ML IV SCH (00:53)
[2025-02-20] MEDS ORDERED: ALBUMIN HUMAN 25% 100 ML IV SCH (01:00)
[2025-02-20] MEDS ORDERED: CALCIUM GLUC 1GM/10ML VIAL IVPB SCH (01:00)
[2025-02-20] MEDS ORDERED: 0.9% NACL 500ML IV.SOLN 500 ML IV SCH (01:00)
[2025-02-20] MEDS: ALBUMIN HUMAN 25% 100 ML IV SCH (01:00)
[2025-02-20 02:20] LABS: ABG BASE EXCESS -17.0 mmol/L (-2.0-3.0); ABG HCO3 12.5 mmol/L (21.0-28.0); ABG OXYGEN SATURATION 92.2 % (94.0-98.0); ABG PCO2 47 mmHg (35-48); CARBON MONOXIDE 0.2 % (0.5-1.5); PO2, ARTERIAL BG 83.7 mmHg (83.0-108.0); TEMPERATURE, CELSIUS BG 37.0 CELSIUS (35.5-37.0); VENT MODE, BG AC VC (ROOM AIR)
--- NOTE | 2025-02-20 02:26 | NUR ---
as per taha nonog to go up on the respiratory rate to 24 after viewing the ABG
[2025-02-20 04:23] LABS: ABG BASE EXCESS -16.4 mmol/L (-2.0-3.0); ABG HCO3 12.3 mmol/L (21.0-28.0); ABG OXYGEN SATURATION 92.9 % (94.0-98.0); ABG PCO2 41 mmHg (35-48); CARBON MONOXIDE 0.3 % (0.5-1.5); PO2, ARTERIAL BG 86.7 mmHg (83.0-108.0); TEMPERATURE, CELSIUS BG 37.0 CELSIUS (35.5-37.0); VENT MODE, BG AC VC (ROOM AIR)
--- NOTE | 2025-02-20 04:41 | NUR ---
updated taha nonog on patient abg from 399, as per taha nonog to give 3 amps of sodium bicarb, ph is steadily increasing
[2025-02-20 05:06] LABS: IMMATURE GRANULOCYTE ABSOLUTE 0.33 K/uL (0-1); NUCLEATED RED BLOOD CELLS 3.5 % (0.0-0.19); PLATELET COUNT (AUTO) 91 K/uL (130-400); RED BLOOD CELL COUNT(AUTO) 2.79 MIL/uL (4.50-6.20); RED CELL DISTRIBUTION WIDTH 15.6 % (11.0-15.5); WHITE BLOOD COUNT (AUTO) 5.7 K/uL (4.8-10.8)
[2025-02-20 05:50] LABS: ABG PH 7.003 (7.350-7.450)
[2025-02-20 06:07] LABS: ABG PH 7.047 (7.350-7.450)
[2025-02-20 06:10] LABS: ABG PH 7.091 (7.350-7.450)
[2025-02-20 06:13] LABS: ASPARTATE AMINOTRANSFERASE 215.0 U/L (10-37); CREATININE 2.3 mg/dL (0.5-1.3); GLOMERULAR FILTR. RATE CALC 35.0 mL/min (>90); GLUCOSE,RANDOM 173.0 mg/dL (70-105); PHOSPHORUS 5.1 mg/dL (2.5-4.9); SODIUM SERUM 134.0 mmol/L (136-145); TOTAL PROTEIN, SERUM 4.8 g/dL (6.0-8.3); UREA NITROGEN, BLOOD 54.0 mg/dL (7-18)
[2025-02-20] MEDS: ALBUTEROL 0.083% 2.5 MG/3 ML INH IH ONE (06:51)
[2025-02-20 08:40] LABS: ABG BASE EXCESS -15.1 mmol/L (-2.0-3.0); ABG HCO3 13.0 mmol/L (21.0-28.0); ABG OXYGEN SATURATION 93.4 % (94.0-98.0); ABG PCO2 41 mmHg (35-48); ABG PH 7.126 (7.350-7.450); CARBON MONOXIDE 0.6 % (0.5-1.5); DEVICE COMMENT RR, LEO,RN; PO2, ARTERIAL BG 86.3 mmHg (83.0-108.0); TEMPERATURE, CELSIUS BG 37.0 CELSIUS (35.5-37.0); VENT MODE, BG AC (ROOM AIR)
[2025-02-20] MEDS ORDERED: SODIUM BICARB 50MEQ 50ML VIAL IV ONE (09:00)
--- NOTE | 2025-02-20 10:03 | HMCIMG ---
EXAM: CR Chest, 4 View. CLINICAL HISTORY: chf COMPARISON: Compared with the previous X-ray FINDINGS: LUNGS: There are infiltrating airspace opacities in the lower zone. PLEURAL SPACES: Bilateral small-volume pleural effusion. MEDIASTINUM: Cardiac size and mediastinal contours are mildly enlarged with pulmonary venous congestion. BONES: No acute osseous abnormality. IMPRESSION: Few airspace opacities in the bilateral lower zone are suggestive of pulmonary edema. Interval reduction. Bilateral small-volume pleural effusion. Interval reduction. The endotracheal tube is located above the catina. Left subclavian PICC line present, crossing the midline, and the tip is located in the proximal superior vena cava. The nasogastric tube is located below the left hemidiaphragm; the tip is not included in the field of view. /Trupti
[2025-02-20 11:39] LABS: ABG BASE EXCESS -10.8 mmol/L (-2.0-3.0); ABG HCO3 15.7 mmol/L (21.0-28.0); ABG OXYGEN SATURATION 95.1 % (94.0-98.0); ABG PCO2 38 mmHg (35-48); ABG PH 7.240 (7.350-7.450); CARBON MONOXIDE 0.4 % (0.5-1.5); DEVICE COMMENT RR, LEO,RN; PO2, ARTERIAL BG 93.0 mmHg (83.0-108.0); TEMPERATURE, CELSIUS BG 37.0 CELSIUS (35.5-37.0); VENT MODE, BG AC (ROOM AIR)
--- NOTE | 2025-02-20 11:44 | PN ---
INFECTIOUS DISEASE FOLLOWUP NOTE DATE OF SERVICE: 02/18/2025 SUBJECTIVE: The patient is seen and examined at bedside today. No fever, no chills. No vomiting. No sore throat or rhinorrhea. The patient remains intubated, on ventilatory support. The patient remains on antibiotics. The patient's . No family available at bedside at this time. PHYSICAL EXAMINATION: VITAL SIGNS: Temperature 98.1. EYES: No icterus. Pupils equal and reactive. HENT: Orally intubated, ventilatory support. NECK: Supple. No JVD or thyromegaly. LUNGS: Good air entry. No rales. No rhonchi. CARDIOVASCULAR: S1 and S2 regular. No murmur heard. ABDOMEN: Soft, nontender. Bowel sound is present. Morbidly obese. CENTRAL NERVOUS SYSTEM: Awake, alert and oriented x3. No focal deficits. SKIN: The patient has some skin excoriation. LYMPHATIC: No peripheral lymphadenopathy. BACK: No deformity. Stage 1 sacrococcygeal ulcer. HEMATOLOGIC: No bleeding or petechial lesions seen. MUSCULOSKELETAL: No joint swelling. No erythema or tenderness. ASSESSMENT: A 44-year-old male with multiple problems: * Sepsis. * Human immunodeficiency virus. * Pneumonia. * Morbid obesity * . * Deblility. * Sacrococcygeal ulcer. PLAN: * Continue critical support. * Continue meropenem. * Continue Bactrim. * Continue fluconazole. * Continue doxycycline. * Continue antibiotic therapy. TID: [id number] RECEIPT: [id number]
--- NOTE | 2025-02-20 12:40 | PN ---
NEPHROLOGY PROGRESS NOTE Date/Time Patient Seen: Feb 20, 2025 SUBJECTIVE: This is a 44-year-old male with HIV positive newly diagnosed He was brought by EMS to the ED for complaints of shortness of breaths for the past two weeks. He has been in the hospital for several days He continues on antibiotics, including Bactrim, as per ID. He was noted to have elevated BUN/creatinine We are consulted for renal failure Renal function continues to worsen Electrolytes are stable Urine output was noted. Hemoglobin was noted He was seen in the ICU, Patient's condition continues to worsen He continues to require vasopressors to maintain blood pressure Continues to be intubated and sedated Family at the bedside Prognosis remains guarded REVIEW OF SYSTEMS: Difficult to obtain given status of the patient who remains intubated mechanically ventilated Vital Signs (last 8hr) Date Time Temp Pulse Resp B/P (MAP) Pulse Ox O2 Delivery O2 Flow Rate FiO2 02/20/25 10:11 90/55 02/20/25 06:23 117 24 90/56 (67) 93 02/20/25 06:03 119 24 94/55 (68) 93 02/20/25 05:58 123 24 103/48 (66) 94 02/20/25 05:52 123 21 91/65 (74) 93 02/20/25 05:38 116 23 95/59 (71) 93 02/20/25 05:23 118 23 96/51 (66) 93 02/20/25 05:08 120 21 111/55 (73) 94 02/20/25 04:58 121 24 108/71 (83) 94 PHYSICAL EXAM: General: acutely ill, sedated, intubated, and mechanically ventilated HEENT: head is atraumatic, pupils equal and reactive, ET tube in place Neck: supple, no masses, no lymphadenopathy, no thyromegaly, no JVD Lungs: decreased breath sounds bilaterally, symmetrical chest movement Cardio: regular rate, S1 and S2 normal, no rub or gallop Abdomen: soft, non tender, no distension, no organomegaly Extremities: trace edema bilateral lower extremities, no cyanosis or clubbing Skin: no rashes or suspicious lesions Neuro: sedated Current Medications Medications (Trade) Dose Ordered Sig/Amada Route Start Time Stop Time Status Last Admin Dose Admin Albumin Human 100 ml @ 100 mls/hr AD IV 02/20/25 01:00 02/20/25 00:50 DC Albumin Human 100 ml @ 100 mls/hr Q6H6 IV 02/20/25 01:00 02/20/25 08:58 DC 02/20/25 05:38 100 MLS/HR Albumin Human 500 ml @ 500 mls/hr AD IV 02/20/25 00:30 02/20/25 08:56 DC Albuterol (DUOneb) 1 udvial [id number] IH 01/30/25 22:00 02/11/25 12:37 DC 02/11/25 11:10 1 UDVIAL Albuterol (DUOneb) 1 udvial [id number] IH 02/11/25 13:00 03/01/25 21:59 02/20/25 11:27 1 UDVIAL Calcium Gluconate (Calcium Gluc 1gm Vial) 1 gm PROTOCOL IVPB 02/10/25 06:00 03/12/25 05:59 02/19/25 07:21 1 GM Calcium Gluconate (Calcium Gluc 1gm Vial) 2 gm PROTOCOL IVPB 02/20/25 01:00 02/20/25 00:44 DC Calcium Gluconate 2 gm/Sodium Chloride 100 ml @ 0 mls/hr PROTOCOL IV 02/20/25 01:00 03/22/25 00:59 02/20/25 00:53 400 MLS/HR Cefepime HCl (MAXipime 2 gm vial) 2 gm Q12H IVPB 02/01/25 14:00 02/11/25 13:59 DC 02/11/25 02:23 2 GM Cefepime HCl (MAXipime 2 gm vial) 2 gm Q12H IVPB 02/12/25 16:00 02/16/25 10:59 DC 02/16/25 04:21 2 GM Dexmedetomidine/ Sodium Chloride (PRECEdex 400MCG/ 100ML-NS) 400 mcg PROTOCOL IV 02/04/25 23:45 03/06/25 23:44 02/20/25 10:40 400 MCG Dextrose 1,000 ml @ 50 mls/hr Q20H IV 02/15/25 11:30 03/17/25 11:29 02/16/25 19:39 50 MLS/HR Doxycycline Hyclate 250 ml @ 125 mls/hr Q12H IV 01/31/25 14:00 02/10/25 13:59 DC 02/10/25 02:07 125 MLS/HR Doxycycline Hyclate 250 ml @ 125 mls/hr Q12H IV 02/11/25 14:00 02/21/25 13:59 02/20/25 02:32 125 MLS/HR Emtricitabine/ Tenofovir (Truvada) 1 tab DAILY PO 02/10/25 15:00 03/12/25 14:59 02/20/25 10:19 1 TAB Enoxaparin Sodium (Lovenox) 30 mg BID SQ 02/14/25 21:00 03/16/25 20:59 02/20/25 10:20 30 MG Famotidine (Pepcid 20mg Vial) 20 mg DAILY IV 01/31/25 09:00 02/11/25 10:02 DC 02/11/25 08:24 20 MG Fentanyl Citrate 100 ml @ 2.5 mls/hr PROTOCOL IV 02/05/25 11:30 02/05/25 19:59 DC 02/05/25 17:13 2.5 MLS/HR Fentanyl/Sodium Chloride 250 ml @ 0.1 mls/hr PROTOCOL IV 02/05/25 20:00 02/08/25 15:52 DC 02/07/25 22:11 0.1 MLS/HR Fluconazole/ Sodium Chloride (DiFLUCan 200 MG/ NS 100 ML) 200 mg DAILY22 IV 02/02/25 22:00 03/01/25 17:59 02/19/25 21:47 200 MG Fluconazole/ Sodium Chloride (DiFLUCan 200 MG/ NS 100 ML) 200 mg Q24H IV 01/30/25 18:00 02/02/25 14:38 DC 02/01/25 18:17 200 MG Furosemide (LASix 20MG VIAL) 20 mg Q8H IV 02/06/25 16:00 02/12/25 14:08 DC 02/12/25 10:00 20 MG Furosemide (LASix 40MG VIAL) 20 mg ONCE STAT IV 01/31/25 05:37 01/31/25 05:40 DC 01/31/25 05:45 20 MG Furosemide (LASix 40MG VIAL) 40 mg Q8H IV 02/12/25 14:00 02/12/25 23:00 DC 02/12/25 21:23 40 MG Heparin Sodium (Porcine) (HEParin 5,000 UNIT VIAL) 5,000 unit Q12H SQ 01/31/25 09:00 02/14/25 10:56 DC 02/14/25 09:01 5,000 UNIT Insulin Glargine (LANtus 100 UNITS/ML 10 ML VIAL) 20 units BID SQ 02/04/25 21:00 02/06/25 14:49 DC 02/06/25 10:03 20 UNITS Insulin Glargine (LANtus 100 UNITS/ML 10 ML VIAL) 30 units BID SQ 02/06/25 21:00 03/08/25 20:59 Hold 02/14/25 08:59 30 UNITS Insulin Human Regular (humuLIN R 100 UNIT/ML 3ML) INSULIN SLIDING SCAL... ACHS SQ 02/07/25 16:30 02/07/25 11:56 DC Insulin Human Regular (humuLIN R 100 UNIT/ML 3ML) INSULIN SLIDING SCAL... Q4H4 SQ 02/15/25 20:00 03/09/25 11:59 02/18/25 12:24 4 UNIT Insulin Human Regular (humuLIN R 100 UNIT/ML 3ML) INSULIN SLIDING SCAL... Q6H6 SQ 01/31/25 06:00 02/07/25 11:55 DC 02/07/25 06:03 5 UNIT Insulin Human Regular (humuLIN R 100 UNIT/ML 3ML) INSULIN SLIDING SCAL... Q6H6 SQ 02/07/25 12:00 02/15/25 16:03 DC 02/08/25 18:27 4 UNIT Meropenem (Merrem 1gm) 1 gm Q12H IVPB 02/20/25 15:30 02/26/25 11:29 Meropenem (Merrem 1gm) 1 gm Q8H IVPB 02/16/25 11:30 02/20/25 09:06 DC 02/20/25 02:45 1 GM Methylprednisolone Sodium Succinate (Solu-medROL 40MG) 40 mg BID IVP 01/30/25 21:00 01/31/25 04:16 DC 01/30/25 21:18 40 MG Methylprednisolone Sodium Succinate (Solu-medROL 40MG) 40 mg BID IVP 02/07/25 21:00 03/09/25 20:59 02/20/25 10:17 40 MG Methylprednisolone Sodium Succinate (Solu-medROL 40MG) 40 mg Q8H IVP 01/31/25 04:30 02/02/25 11:57 DC 02/02/25 11:47 40 MG Methylprednisolone Sodium Succinate (Solu-medROL 40MG) 60 mg Q6H IVP 02/02/25 12:00 02/07/25 15:17 DC 02/07/25 11:27 60 MG Metoclopramide HCl (regLAN 10MG IV) 10 mg Q8H IVP 02/06/25 16:00 03/08/25 15:59 02/20/25 10:13 10 MG Morphine Sulfate (morPHINE 2MG SYG) 2 mg ONCE STAT IVP 01/31/25 05:41 01/31/25 05:45 DC 01/31/25 05:51 2 MG Multi-Ingred Cream/Lotion/Oil/ Oint (Artificial Tears Eye Oint) Apply ointment to both e... Q4H OU 01/31/25 15:00 03/02/25 14:59 02/20/25 10:13 1 APPL Norepinephrine Bitartrate (Norepineph 16 Mg/250ml NS Premix) Continuous PROTOCOL IV 02/11/25 15:30 02/20/25 09:19 DC 02/19/25 17:16 16 MG Norepinephrine Bitartrate (Norepineph 16 Mg/250ml NS Premix) sbp>90 PROTOCOL IV 02/05/25 11:30 02/11/25 15:27 DC Norepinephrine Bitartrate 32 mg/ Sodium Chloride 250 ml @ 0 mls/hr PROTOCOL IV 02/20/25 09:30 03/22/25 09:29 Pantoprazole Sodium (PROTonix 40MG INJ) 40 mg DAILY IVP 02/12/25 09:00 03/14/25 08:59 02/20/25 10:13 40 MG Pharmacy Profile Note (Pharmacy Communication) 1 each ONCE MISC 02/05/25 11:30 02/05/25 11:23 DC Pharmacy Profile Note (Pharmacy Communication) 1 each ONCE MISC 02/16/25 11:00 02/16/25 11:08 DC Pharmacy Profile Note (Pharmacy Communication) 1 each ONCE MISC 02/10/25 14:00 02/10/25 14:21 DC Phenylephrine HCl 100 mg/Sodium Chloride 250 ml @ 0 mls/hr PROTOCOL IV 02/20/25 01:00 03/22/25 00:59 02/20/25 10:11 62.46 MLS/HR Piperacillin Sod/ Tazobactam Sod (Zosyn 3.375gm+NS 50ml) 3.375 gm Q8H IVPB 01/31/25 09:30 01/31/25 12:56 DC 01/31/25 11:04 3.375 GM Piperacillin Sod/ Tazobactam Sod (Zosyn 3.375gm+NS 50ml) 3.375 gm ZOSY8 IVPB 01/31/25 13:00 02/01/25 13:33 DC 02/01/25 11:54 3.375 GM Polyethylene Glycol (MIRalax 3350 17 GM POWD.PACK) 17 gm DAILY PO 02/07/25 11:30 03/09/25 11:29 02/19/25 08:20 17 GM Raltegravir (Isentress) 400 mg BID PO 02/10/25 21:00 03/12/25 20:59 02/20/25 10:18 400 MG Silver Sulfadiazine (Silvadene) 1 APPL BID TP 02/16/25 21:00 03/18/25 20:59 02/20/25 10:21 1 GIORGI Sodium Bicarbonate 150 meq/Dextrose 1,150 ml @ 200 mls/hr Q5H45M IVP 02/16/25 06:30 02/20/25 09:01 DC 02/19/25 22:17 200 MLS/HR Sodium Bicarbonate (Sodium Bicarbonate) 100 mg DAILY PO 02/14/25 12:00 02/14/25 12:35 DC Sodium Bicarbonate (Sodium Bicarb 50meq 50ml Vial) 50 meq Q8H6 IV 02/06/25 14:00 02/07/25 16:00 DC 02/07/25 14:47 50 MEQ Sodium Chloride 500 ml @ 0 mls/hr Q0M IV 02/20/25 01:00 02/20/25 08:58 DC Sodium Chloride 1,000 ml @ 100 mls/hr Q10H IV 01/30/25 20:00 01/31/25 05:38 DC 01/30/25 21:18 100 MLS/HR Sodium Chloride (NS 50ml) 50 ml AD IV 02/10/25 06:00 03/12/25 05:59 Sodium Zirconium Cyclosilicate (Lokelma 10gm Powder) 10 gm BID PO 02/09/25 12:00 02/10/25 11:59 DC 02/10/25 08:29 10 GM Sodium Zirconium Cyclosilicate (Lokelma 10gm Powder) 10 gm TID PO 02/10/25 14:00 02/11/25 13:59 DC 02/11/25 08:26 10 GM Trimethoprim/ Sulfamethoxazole 480 mg/Dextrose 500 ml @ 250 mls/hr Q6H IV 01/30/25 21:00 02/01/25 11:57 DC 02/01/25 02:49 250 MLS/HR Trimethoprim/ Sulfamethoxazole 480 mg/Dextrose 500 ml @ 250 mls/hr Q6H IV 02/01/25 12:00 02/10/25 15:05 DC 02/10/25 08:27 250 MLS/HR Trimethoprim/ Sulfamethoxazole 480 mg/Dextrose 500 ml @ 250 mls/hr Q6H IV 02/10/25 16:00 02/20/25 15:59 02/20/25 04:23 250 MLS/HR Trimethoprim/ Sulfamethoxazole / Dextrose 100 ml @ 100 mls/hr AD IV 01/30/25 20:00 02/09/25 19:59 UNV Wound Care/ Dressing Products (Venelex Ointment) BID TP 02/09/25 21:00 02/16/25 16:23 DC 02/16/25 08:36 1 GM LABORATORY: [ ] Hematology Labs: Test 02/20/25 04:50 Range/Units White Blood Count 5.7 4.8-10.8 K/uL Red Blood Count 2.79 L 4.50-6.20 MIL/uL Hemoglobin 8.4 L 14.0-18.0 g/dL Hematocrit 23.4 L 42-54 % Mean Corpuscular Volume 83.9 79-99 fL Mean Corpuscular Hemoglobin 30.1 27.0-33.0 pg Mean Corpuscular Hemoglobin Concent 35.9 32.0-36.0 g/dL Red Cell Distribution Width 15.6 H 11.0-15.5 % Platelet Count 91 L 130-400 K/uL Mean Platelet Volume 9.6 7.5-10.5 fL Immature Granulocyte % (Auto) 5.8 H 0-1 % Neutrophils (%) (Auto) 84.9 H 40.0-77.0 % Lymphocytes (%) (Auto) 6.3 L 21.0-51.0 % Monocytes (%) (Auto) 2.6 L 3.0-13.0 % Eosinophils (%) (Auto) 0.0 0.0-8.0 % Basophils (%) (Auto) 0.4 0.0-5.0 % Neutrophils # (Auto) 4.8 1.8-7.7 K/uL Lymphocytes # (Auto) 0.4 L 1.0-4.8 K/uL Monocytes # (Auto) 0.2 0.1-1.0 K/uL Eosinophils # (Auto) 0.00 0.00-0.70 K/uL Basophils # (Auto) 0.02 0.00-0.20 K/uL Absolute Immature Granulocyte (auto 0.33 0-1 K/uL Nucleated Red Blood Cells 3.5 H 0.0-0.19 % Chemistry Labs: Test 02/20/25 04:50 02/20/25 04:16 02/19/25 04:29 Range/Units Sodium Level 134 L 136-145 mmol/L Potassium Level 3.9 3.5-5.1 mmol/L Chloride Level 90 *L 101-111 mmol/L Carbon Dioxide Level 13 L 21-32 mmol/L Blood Urea Nitrogen 54 H 7-18 mg/dL Creatinine 2.3 H 0.5-1.3 mg/dL Glomerular Filtration Rate Calc 35 >90 mL/min Random Glucose 173 H 70-105 mg/dL Lactic Acid Level 21.6 H 0.8-2.5 mmol/L Total Calcium 6.7 L 8.5-10.1 mg/dL Phosphorus Level 5.1 H 2.5-4.9 mg/dL Magnesium Level 1.90 1.80-2.40 mg/dL Total Bilirubin 1.0 0.2-1.0 mg/dL Aspartate Amino Transf (AST/SGOT) 215 H 10-37 U/L Alanine Aminotransferase (ALT/SGPT) 111 H 12-78 U/L Alkaline Phosphatase 124 50-136 U/L B-Type Natriuretic Peptide 145 H 0-100 pg/mL Total Protein 4.8 L 6.0-8.3 g/dL Albumin 2.0 #L 3.5-5.0 g/dL Whole Blood Glucose 162 H 70-110 MG/DL Direct Bilirubin 0.2 0.0-0.3 mg/dL DIAGNOSTICS / RADIOLOGY: [address] [address] IMAGING REPORT Signed PATIENT: CHARY HERNANDEZ MR#: [id number] : 1980 SEX: M AGE: 44 LOCATION: 2CH ORDER 0852 STATUS: ADM IN REPORT#: [id number] SERVICE 0851 REASON: chf ORDERING PHYSICIAN: NETO STARR PROCEDURE: CXR1VW - CHEST 1VW EXAM: CR Chest, 4 View. CLINICAL HISTORY: chf COMPARISON: Compared with the previous X-ray FINDINGS: LUNGS: There are infiltrating airspace opacities in the lower zone. PLEURAL SPACES: Bilateral small-volume pleural effusion. MEDIASTINUM: Cardiac size and mediastinal contours are mildly enlarged with pulmonary venous congestion. BONES: No acute osseous abnormality. IMPRESSION: Few airspace opacities in the bilateral lower zone are suggestive of pulmonary edema. Interval reduction. Bilateral small-volume pleural effusion. Interval reduction. The endotracheal tube is located above the catina. Left subclavian PICC line present, crossing the midline, and the tip is located in the proximal superior vena cava. The nasogastric tube is located below the left hemidiaphragm; the tip is not included in the field of view. /[place] DICTATED BY: LARISSA LEMONS Jr., MD DATE: 02/20/251102 ELECTRONICALLY SIGNED BY: LARISSA LEMONS Jr., MD DATE: 02/20/251102 PATIENT: CHARY HERNANDEZ MR#: [id number] : 1980 SEX: M AGE: 44 LOCATION: 2[facility] ORDER 1150 STATUS: ADM IN REPORT#: [id number] SERVICE 1149 REASON: PICC line placement ORDERING PHYSICIAN: EMMANUEL CAMARILLO MD PROCEDURE: CXR1VW - CHEST 1VW STUDY CR chest, 2 views HISTORY PICC line placement TECHNIQUE Posteroanterior and lateral views of the chest COMPARISON CR chest 1 view 02/17/2025 05:07 EST FINDINGS Lungs Nonhomogeneous hazy opacities are present in the bilateral lower lung zones, compatible with interstitial and early alveolar pulmonary edema. No discrete pulmonary mass is identified. Pleural spaces A small left pleural effusion is present. No pneumothorax is identified. Mediastinum Mild cardiomegaly is present and appears stable. Pulmonary vascular congestion has increased compared to the prior examination. The endotracheal tube tip projects approximately 5.5 cm above the catina. The nasogastric tube courses below the diaphragm with tip in appropriate intragastric position. A right upper extremity PICC line is present with its tip projecting over the expected location of the superior vena cava. Bones No acute osseous abnormality is identified. IMPRESSION * Mild cardiomegaly with increasing pulmonary vascular congestion and bilateral basal-predominant interstitial and early alveolar pulmonary edema compared to the prior study. * Small left pleural effusion. * Right upper extremity PICC with tip in the expected location of the superior vena cava; endotracheal and nasogastric tubes in satisfactory positions. /[place] DICTATED BY: LARISSA LEMONS Jr., MD DATE: 02/18/251444 ELECTRONICALLY SIGNED BY: LARISSA LEMONS Jr., MD DATE: 02/18/251444 PATIENT: CHARY HERNANDEZ MR#: [id number] : 1980 SEX: M AGE: 44 LOCATION: 2[facility] ORDER 2300 STATUS: ADM IN REPORT#: [id number] SERVICE 0600 REASON: Pneumonia ORDERING PHYSICIAN: DAVEY MANRIQUE MD PROCEDURE: CXR1VW - CHEST 1VW EXAM: CR Chest, 1 View. CLINICAL HISTORY: Pneumonia. COMPARISON: February 15, 2025. FINDINGS: LUNGS: Stable mild cardiomegaly, non-homogeneous haziness in bilateral lower lung zones with possible mild left pleural effusion, possibly representing changes of cardiac congestion. BONES: No acute osseous abnormality. IMPRESSION: Stable mild cardiomegaly, non-homogeneous haziness in bilateral lower lung zones with possible mild left pleural effusion, possibly representing changes of cardiac congestion. /[place] DICTATED BY: LARISSA LEMONS Jr., MD DATE: 02/18/2520 ELECTRONICALLY SIGNED BY: LARISSA LEMONS Jr., MD DATE: 02/18/2520 PATIENT: CHARY HERNANDEZ MR#: [id number] : 1980 SEX: M AGE: 44 LOCATION: 2[facility] ORDER 2326 STATUS: ADM IN REPORT#: [id number] SERVICE 0600 REASON: pneumonia ORDERING PHYSICIAN: DAVEY MANRIQUE MD PROCEDURE: CXR1VW - CHEST 1VW EXAM: CR Chest, 1 View. CLINICAL HISTORY: pneumonia COMPARISON: 02/15/2025 FINDINGS: The endotracheal tube with its tip 6 cm away from the catina. The right PICC line tip overlying the SVC. The nasogastric catheter is seen up to the proximal stomach. LUNGS: The lungs appear essentially clear apart from bibasilar atelectasis. No new lung infiltrates or consolidation. PLEURAL SPACES: No evidence of pleural effusion or pneumothorax. MEDIASTINUM: Cardiac size is stable. Slight interval improvement in mild pulmonary congestion. BONES: No acute osseous abnormality. IMPRESSION: Mild pulmonary congestion, slightly improved. No new lung infiltrates or consolidation. Endotracheal tube tip 6 cm from the catina. /[place] DICTATED BY: LARISSA LEMONS Jr., MD DATE: 02/16/251128 ELECTRONICALLY SIGNED BY: LARISSA LEMONS Jr., MD DATE: 02/16/251128 PATIENT: CHARY HERNANDEZ MR#: [id number] : 1980 SEX: M AGE: 44 LOCATION: 2[facility] ORDER 1 STATUS: ADM IN REPORT#: [id number] SERVICE 9 REASON: Pneumonia ORDERING PHYSICIAN: ASHA JOHNSON MD PROCEDURE: CXR1VW - CHEST 1VW EXAM: CR CHEST, 1 VIEW CLINICAL HISTORY: RESP FAILURE COMPARISON: Previous study dated 02/14/2025 TECHNIQUE: Single frontal radiograph of the chest was obtained. The study is performed in semi-erect position. FINDINGS: Lines/Devices: The endotracheal tube with its tip 5 cm away from the catina. The right PICC line tip overlying the SVC. The nasogastric catheter is seen up to the proximal stomach. Lungs: The lungs appear essentially clear apart from bibasilar atelectasis. No consolidation or ground-glass opacities are observed. Mild pulmonary congestion is seen similar compared to prior exam. Pleural Spaces: No definite pleural effusion or pneumothorax. Mediastinum and cardiovascular structures: Cardiac size is stable. There are calcific atherosclerotic plaques in the aorta. The central airway and mediastinal contours are unremarkable. Bones and soft tissues: No acute osseous abnormality. Soft tissues are unremarkable. IMPRESSION: Compared to previous study dated 02/14/2025; the current study shows: 1. Mild pulmonary congestion is seen similar compared to prior exam. Mild stable bibasilar atelectasis. 2. No appreciable time interval changes with stable findings since last study. /[place] DICTATED BY: LEXX GRIGGS MD DATE: 02/16/2527 ELECTRONICALLY SIGNED BY: LEXX GRIGGS MD DATE: 02/16/2527 PATIENT: CHARY HERNANDEZ MR#: [id number] : 1980 SEX: M AGE: 44 LOCATION: 2[facility] ORDER 3 STATUS: ADM IN REPORT#: [id number] SERVICE 8 REASON: Ultrasound of liver ORDERING PHYSICIAN: TIFFANI HIRSCH MD PROCEDURE: ABDRUQLTD - US ABDOMINAL RUQ\LTD EXAMINATION: ULTRASOUND OF THE ABDOMEN (LIMITED) WITH COLOR DOPPLER. CLINICAL HISTORY: To evaluate liver. COMPARISON: None. TECHNIQUE: Real-time grayscale ultrasound images of the abdomen. In addition, color Doppler is medically necessary to perform in order to evaluate vascularity and blood flow. FINDINGS: Liver: Normal in caliber, the right hepatic lobe measures 15.9 cm in the craniocaudal dimension. There is increased echogenicity of the hepatic parenchyma. There is no focal hepatic abnormality or intrahepatic biliary ductal dilatation. There is normal spectral Doppler of the main portal vein. The left lobe is not well visualized. Gallbladder: Within normal limits with normal wall thickness (0.17 cm). No hyperemia or pericholecystic free fluid. There is no cholelithiasis. Common bile duct is normal in caliber, measuring 0.45 cm. Pancreas: Normal in caliber and echotexture. No calcification or dilated pancreatic duct. The right kidney is normal in caliber, the right kidney measures 13.9 x 6.5 x 7.0 cm in craniocaudal, AP, and transverse dimensions respectively. There is normal renal cortical thickness, and cortical echogenicity. There is no renal calculus or hydronephrosis. IMPRESSION:Hepatic steatosis. /[place] DICTATED BY: LARISSA LEMONS Jr., MD DATE: 02/16/2514 ELECTRONICALLY SIGNED BY: LARISSA LEMONS Jr., MD DATE: 02/16/2514 PATIENT: CHARY HERNANDEZ MR#: [id number] : 1980 SEX: M AGE: 44 LOCATION: 2CH ORDER 230 STATUS: ADM IN REPORT#: [id number] SERVICE 0600 REASON: RESP FAILURE ORDERING PHYSICIAN: EDDIE CLARK MD PROCEDURE: CXR1VW - CHEST 1VW EXAM: CR Chest, 2 View. CLINICAL HISTORY: RESP FAILURE COMPARISON: 02/13/2025; 19:51 EST FINDINGS: The endotracheal tube with its tip 5 cm away from the catina. The right PICC line tip overlying the SVC The nasogastric catheter is seen up to the proximal stomach. LUNGS: The lungs appear essentially clear apart from bibasilar atelectasis. PLEURAL SPACES: No definite pleural effusion or pneumothorax. MEDIASTINUM: Cardiac size is stable. BONES: No acute osseous abnormality. IMPRESSION: 1. No acute cardiopulmonary findings. Mild stable bibasilar atelectasis. 2. Endotracheal tube tip 5 cm from catina. 3. Right PICC line tip overlying SVC. 4. Nasogastric catheter to the proximal stomach. /[place] DICTATED BY: LARISSA LEMONS Jr., MD DATE: 02/15/252358 ELECTRONICALLY SIGNED BY: LARISSA LEMONS Jr., MD DATE: 02/15/252358 PATIENT: CHARY HERNANDEZ MR#: [id number] : 1980 SEX: M AGE: 44 LOCATION: [facility] ORDER 37 STATUS: ADM IN REPORT#: [id number] SERVICE 35 REASON: ET Tube Advanced ORDERING PHYSICIAN: BIANCA WICK PAC PROCEDURE: CXR1VW - CHEST 1VW EXAM: CR Chest, 1 View. CLINICAL HISTORY: ET Tube Advanced COMPARISON: 02/13/2025; 5:04 EST FINDINGS: The endotracheal tube with its tip 5.2 cm away from the catina. The right PICC line tip overlying the SVC The nasogastric catheter is seen up to the proximal stomach. LUNGS: Essentially stable appearance of bilateral lung curtis. PLEURAL SPACES: No pleural effusion or pneumothorax. MEDIASTINUM: Cardiac size is stable. BONES: No aggressive appearing osseous lesion seen. IMPRESSION: 1. Endotracheal tube tip 5.2 cm from catina. 2. Right PICC line tip overlying SVC. 3. Nasogastric tube in the proximal stomach. 4. Essentially stable appearance of bilateral lung curtis. /[place] DICTATED BY: LARISSA LEMONS Jr., MD DATE: 02/14/25720 ELECTRONICALLY SIGNED BY: LARISSA LEMONS Jr., MD DATE: 02/14/25720 PATIENT: CHARY HERNANDEZ MR#: [id number] : 1980 SEX: M AGE: 44 LOCATION: 2CH ORDER 99 STATUS: ADM IN REPORT#: [id number] SERVICE 9 REASON: pneumonia ORDERING PHYSICIAN: NETO STARR PROCEDURE: CXR1VW - CHEST 1VW EXAM: CR Chest, 1 View. CLINICAL HISTORY: pneumonia COMPARISON: 02/12/2025 FINDINGS: The right PICC line tip overlying the SVC Endotracheal tube with its tip 3.9 cm short of the catina. The nasogastric catheter is seen up to the proximal stomach. LUNGS: Interval improvement in the bilateral lung aeration, with an interval decrease in the left lower zone infiltrates. PLEURAL SPACES: No evidence of pleural effusion or pneumothorax. MEDIASTINUM: Cardiac size is stable. BONES: No acute osseous abnormality. IMPRESSION: 1. Interval improvement in bilateral lung aeration, with decreased left lower zone infiltrates. 2. Right PICC line tip overlying the SVC, endotracheal tube tip 3.9 cm proximal to the catina, and nasogastric catheter tip in the proximal gastric body. /[place] DICTATED BY: LARISSA LEMONS Jr., MD DATE: 02/13/251717 ELECTRONICALLY SIGNED BY: LARISSA LEMONS Jr., MD DATE: 02/13/251717 PATIENT: CHARY HERNANDEZ MR#: [id number] : 1980 SEX: M AGE: 44 LOCATION: 2CH ORDER 99 STATUS: ADM IN REPORT#: [id number] SERVICE 9 REASON: PNEUMONIA ORDERING PHYSICIAN: NETO STARR PROCEDURE: CXR1VW - CHEST 1VW EXAM: CR CHEST, 1 VIEW CLINICAL HISTORY: pneumonia, Endotracheal tube placement. COMPARISON: CR: CHEST 1VW dated 02/11/2025 3:36 DOMAIN ARCHITECT TECHNIQUE: Single frontal radiograph of the chest was obtained. Mild patient's rotation during the image acquisition is present. FINDINGS: Lines/Devices: Right sided PICC line with its tip overlying the proximal superior vena cava. Endotracheal tube with its tip 5 cm short of catina. Nasogastric catheter with its tip overlying the stomach in the region of the proximal gastric body. Lungs: Almost stationary degree of pulmonary parenchymal congestion on left side, being mild. Persistent left lower lobar lung infiltrates, which may represent atelectasis/consolidation. No right sided pleural effusion. Mild left sided pleural effusion causing opacification of the left hemithorax. There is no pneumothorax. Mediastinum and cardiovascular structures: Moderate cardiomegaly. There are calcific atherosclerotic plaques in the aorta. The central airway and mediastinal contours are unremarkable. Bones and soft tissues: Unremarkable. IMPRESSION: In comparison with the previous chest radiograph dated February 11, 2025, the current radiograph demonstrates: 1. Mild left sided pleural effusion causing opacification of the left hemithorax. Persistent left lower lobar lung infiltrates, which may represent atelectasis/consolidation. 2. Stable endotracheal tube, the right sided PICC line and the nasogastric catheter. 3. Stationary degree of pulmonary parenchymal congestion. /[place] DICTATED BY: LEXX GRIGGS MD DATE: 02/13/2551 ELECTRONICALLY SIGNED BY: LEXX GRIGGS MD DATE: 02/13/2551 PATIENT: CHARY HERNANDEZ MR#: [id number] : 1980 SEX: M AGE: 44 LOCATION: [facility] ORDER 2300 STATUS: ADM IN REPORT#: [id number] SERVICE 0600 REASON: pp ORDERING PHYSICIAN: BIANCA WICK PAC PROCEDURE: CXR1VW - CHEST 1VW EXAM: CR CHEST, 1 VIEW CLINICAL HISTORY: Endotracheal tube placement. COMPARISON: None provided TECHNIQUE: Single frontal radiograph of the chest was obtained. Gross patient's rotation during the image acquisition is present. FINDINGS: Lines/Devices: Right sided PICC line with its tip overlying the proximal superior vena cava. Endotracheal tube with its tip 5.3 cm short of catina. Nasogastric catheter with its tip overlying the stomach in the region of the proximal gastric body. Lungs: Interval reduction in the degree of pulmonary parenchymal congestion with clearing of the infiltrates from the right lung. Persistent left lower lobar lung infiltrates, which may represent atelectasis/consolidation. No right sided pleural effusion. Moderate sized left sided pleural effusion causing opacification of the left hemithorax. There is no pneumothorax. Mediastinum and cardiovascular structures: Moderate cardiomegaly. There are calcific atherosclerotic plaques in the aorta. The central airway and mediastinal contours are unremarkable. Bones and soft tissues: Unremarkable. IMPRESSION: In comparison with the previous chest radiograph dated February 10, 2025, the current radiograph demonstrates: 1. Stable endotracheal tube, the right sided PICC line and the nasogastric catheter. 2. Moderate sized left sided pleural effusion causing opacification of the left hemithorax. Persistent left lower lobar lung infiltrates, which may represent atelectasis/consolidation. 3. Interval reduction in the degree of pulmonary parenchymal congestion with resolution of the infiltrates from the right lung. /[place] DICTATED BY: LEXX GRIGGS MD DATE: 02/12/25432 ELECTRONICALLY SIGNED BY: LEXX GRIGGS MD DATE: 02/12/25432 PATIENT: CHARY HERNANDEZ MR#: [id number] : 1980 SEX: M AGE: 44 LOCATION: [facility] ORDER 99 STATUS: ADM IN REPORT#: [id number] SERVICE 06 REASON: pp ORDERING PHYSICIAN: BIANCA WICK PAC PROCEDURE: CXR1VW - CHEST 1VW EXAM: CR Chest, 1 View. CLINICAL HISTORY: Endotracheal tube. COMPARISON: 02/09/2025 FINDINGS: The endotracheal tube is seen with its tip terminating about 5.6 cm above the catina. The nasogastric tube is seen in the left hemidiaphragm; the tip is not visualized. LUNGS: Mild interval reduction in the aeration of both lungs. PLEURAL SPACES: No definite pleural effusion or pneumothorax. MEDIASTINUM: Cardiac size is stable. BONES: No aggressive appearing osseous lesion seen. IMPRESSION: 1. Endotracheal tube tip 5.6 cm above the catina. 2. Mild interval reduction in the aeration of both lungs. /[place] DICTATED BY: LARISSA LEMONS Jr., MD DATE: 02/10/251510 ELECTRONICALLY SIGNED BY: LARISSA LEMONS Jr., MD DATE: 02/10/251510 PATIENT: CHARY HERNANDEZ MR#: [id number] : 1980 SEX: M AGE: 44 LOCATION: [facility] ORDER 230 STATUS: ADM IN REPORT#: [id number] SERVICE 06 REASON: Respirateory failure ORDERING PHYSICIAN: NETO STARR PROCEDURE: CXR1VW - CHEST 1VW EXAM: CR Chest, 1 View. CLINICAL HISTORY: Respiratory failure COMPARISON: 02/08/2025 FINDINGS: The endotracheal tube is seen with its tip terminating about 5.4 cm above the catina. The nasogastric tube is seen in the left hemidiaphragm; the tip is not visualized. LUNGS: Essentially stable appearance of bilateral lung curtis, with persistent right basilar and diffuse left lung airspace disease. PLEURAL SPACES: No evidence of pleural effusion or pneumothorax. MEDIASTINUM: The cardiac size is stable. BONES: No aggressive appearing osseous lesion seen. IMPRESSION: 1. Endotracheal tube tip 5.4 cm above catina. 2. Nasogastric tube is demonstrated below the left hemidiaphragm; the tip is not visualized. 3. Essentially stable appearance of bilateral lung curtis, with persistent right basilar and diffuse left lung airspace disease. /[place] DICTATED BY: LARISSA LEMONS Jr., MD DATE: 02/09/25 105 ELECTRONICALLY SIGNED BY: LARISSA LEMONS Jr., MD DATE: 02/09/251057 PATIENT: CHARY HERNANDEZ MR#: [id number] : 1980 SEX: M AGE: 44 LOCATION: [facility] ORDER 99 STATUS: ADM IN REPORT#: [id number] SERVICE 9 REASON: pp ORDERING PHYSICIAN: BIANCA WICK PAC PROCEDURE: CXR1VW - CHEST 1VW EXAM: CR Chest, 1 View. CLINICAL HISTORY: Follow up COMPARISON: 02/07/2025 FINDINGS: The endotracheal tube tip is 6.8 cm away from the catina. The nasogastric tube is seen below the left hemidiaphragm; the tip is not visualized. LUNGS: Essentially stable appearance of the bilateral lung curtis with mild bibasilar atelectasis and questionable small bilateral pleural effusions. PLEURAL SPACES: No evidence of pneumothorax. MEDIASTINUM: Cardiac size is stable. Mild stable pulmonary vascular congestion. BONES: No acute osseous abnormality. IMPRESSION: 1. Stable appearance of bilateral lung curtis with mild bibasilar atelectasis and questionable small bilateral pleural effusions. 2. Endotracheal tube tip 6.8 cm from catina. 3. Nasogastric tube below left hemidiaphragm, tip not visualized. /[place] DICTATED BY: LARISSA LEMONS Jr., MD DATE: 02/09/251109 ELECTRONICALLY SIGNED BY: LARISSA LEMONS Jr., MD DATE: 02/09/251109 PATIENT: CHARY HERNANDEZ MR#: [id number] : 1980 SEX: M AGE: 44 LOCATION: [facility] ORDER 99 STATUS: ADM IN REPORT#: [id number] SERVICE 9 REASON: pp ORDERING PHYSICIAN: BIANCA WICK PAC PROCEDURE: CXR1VW - CHEST 1VW EXAM: CR Chest, 2 View. CLINICAL HISTORY: Intubated. COMPARISON: 02/06/2025 FINDINGS: The endotracheal tube is seen with its tip terminating about 6.7 cm above the catnia. The nasogastric tube terminates in the proximal stomach. LUNGS: Interval improvement in basilar predominant bilateral diffuse airspace disease is present. PLEURAL SPACES: No definite pleural effusion or pneumothorax. MEDIASTINUM: Cardiac size is stable. BONES: No aggressive appearing osseous lesion seen. IMPRESSION: 1. Interval improvement in bilateral basilar predominant airspace disease. 2. Endotracheal tube tip positioned 6.7 cm above catina. 3. The nasogastric tube terminates in the proximal stomach. /[place] DICTATED BY: LARISSA LEMONS Jr., MD DATE: 02/07/251748 ELECTRONICALLY SIGNED BY: LARISSA LEMONS Jr., MD DATE: 02/07/251748 PATIENT: CHARY HERNANDEZ MR#: [id number] : 1980 SEX: M AGE: 44 LOCATION: [facility] ORDER 1341 STATUS: ADM IN REPORT#: [id number] SERVICE 1337 REASON: JUAN ORDERING PHYSICIAN: DARBY PORRAS MD PROCEDURE: RENAL - US RENAL SONOGRAM EXAMINATION: ULTRASOUND OF THE RETROPERITONEUM. CLINICAL HISTORY: JUAN. COMPARISON: None. TECHNIQUE: Real-time grayscale ultrasound images of the kidneys. FINDINGS: The kidneys are normal in caliber, the right kidney measures 12.9 x 6.5 x 6.5 cm and the left kidney measures 11.0 x 5.6 x 5.5 cm in its craniocaudal, AP, and transverse dimensions respectively. There is normal renal cortical thickness, and cortical echogenicity. There is no renal calculus or hydronephrosis. The urinary bladder is partially distended with mild wall thickening (0.6 cm). There are no calculi in the urinary bladder. IMPRESSION: Urinary bladder wall thickening of concern for cystitis. /[place] DICTATED BY: LARISSA LEMONS Jr., MD DATE: 02/07/25716 ELECTRONICALLY SIGNED BY: LARISSA LEMONS Jr., MD DATE: 02/07/25716 PATIENT: CHARY HERNANDEZ MR#: [id number] : 1980 SEX: M AGE: 44 LOCATION: [facility] ORDER 1118 STATUS: ADM IN REPORT#: [id number] SERVICE 1145 REASON: post intubation ORDERING PHYSICIAN: COMPA PATRICK MD PROCEDURE: CXR1VW - CHEST 1VW EXAM: CR Chest, 2 View. CLINICAL HISTORY: post intubation COMPARISON: Radiograph from February 04, 2025 FINDINGS: Endotracheal tubes in satisfactory position, tip terminating 3.5 cm above the catina. Right PICC terminates overlying the SVC. Bibasilar airspace disease may reflect an infectious process. No pleural effusion or pneumothorax. Heart size is stable. Pulmonary vessels are within normal limits. IMPRESSION: 1. Endotracheal tube and right PICC line in satisfactory positions. 2. Bibasilar airspace disease, possibly infectious. /[place] DICTATED BY: LARISSA LEMONS Jr., MD DATE: 02/05/251408 ELECTRONICALLY SIGNED BY: LARISSA LEMONS Jr., MD DATE: 02/05/251408 PATIENT: CHARY HERNANDEZ MR#: [id number] : 1980 SEX: M AGE: 44 LOCATION: [facility] ORDER 0930 STATUS: ADM IN REPORT#: [id number] SERVICE 0929 REASON: ngt placement for TF ORDERING PHYSICIAN: ISAC MATHEW MD PROCEDURE: ABD 1VW - ABD 1VW EXAM: CR Abdomen, 1 View. CLINICAL HISTORY: ngt placement for TF COMPARISON: None provided. FINDINGS: BOWEL: The transverse colon is filled with gas and fecal content could be due to constipation Nasogastric tubes projecting below lthe eft hemidiaphragm in the stomach PERITONEUM/SOFT TISSUES: No free air evident. No pathologic appearing calcification. BONES: No acute osseous abnormality. IMPRESSION: The nasogastric tube is projected below the left hemidiaphragm over the stomach, tip is located in the body portion of the stomach Gas and fecal-loaded transverse colon consistent with constipation /[place] DICTATED BY: LARISSA LEMONS Jr., MD DATE: 02/03/251138 ELECTRONICALLY SIGNED BY: LARISSA LEMONS Jr., MD DATE: 02/03/251138 PATIENT: CHARY HERNANDEZ MR#: [id number] : 1980 SEX: M AGE: 44 LOCATION: [facility] ORDER 1 STATUS: ADM IN REPORT#: [id number] SERVICE 5 REASON: hypoxia ORDERING PHYSICIAN: BIANCA GARCIA PROCEDURE: ECHO CMP - ECHO 2-D COMPLETE APPROVED REPORT EXAM: Two-dimensional and M-mode echocardiogram with Doppler and color Doppler. INDICATION ICD: R06.02 Shortness of breath 2D Dimensions RVDd 4.5 cm LVEF(%) 58.7 (>50%) LVED Vol(simp.) 152.0 mL IVSd 1.2 (0.7-1.1cm) FS(%) 32 % LVES Vol(simp.) 70.0 mL LVDd 6.1 (3.8-5.6cm) LA (2D) 4.0 (1.6-4.0cm) LVEF(%, simp.) 54 % PWd 0.8 (0.7-1.1cm) Ao Root(2D) 3.4 (2.0-3.7cm) LA ESV INDEX (BP) 26.38 mL/m2 IVSs 1.5 cm LVOT diam 2.7 (1.8-2.4cm) LVDs 4.1 (2.5-4.0cm) IVC diam 2.7 cm PWs 1.1 cm Deformation Strain Apical 4 -16.1 % Apical 2 -16.4 % Apical 3 -17.4 % Global Strain -16.6 % M-Mode Dimensions EPSS 0.3 cm LA (MM) 4.2 (1.6-4.0cm) Ao Root(MM) 4.0 (2.0-3.7cm) Aortic Valve AoV Vmax 1.4 m/s Ao Peak GR 7.3 mmHg LVOT Vmax 1.2 m/s AoV VTI 0.3 m Ao Mean GR 4.7 mmHg LVOT VTI 0.23 m MINH (VMAX) 5.28 cm2 MINH (VTI) 5.3 cm2 Mitral Valve MV E Vmax 88.4 cm/s DECEL Time 146 ms MV A Vmax 76.4 cm/s P 1/2 T 41 ms E/A ratio 1.2 MVA (PHT) 5.4 cm2 TDI E/E' Medial 10.2 E/E' Lateral 10.5 Medial E' Peak V 8.64 cm/s Lateral E' Peak V 8.43 cm/s Pulmonary Valve PV Vmax 0.8 m/s PV Peak GR 2.3 mmHg Tricuspid Valve TR Vmax 1.1 m/s RAP (EST) 8 mmHg RVSP 12.9 mmHg TR Peak GR 4.9 mmHg Left Ventricle The left ventricle is normal size. GLS -16.0% There is normal LV segmental wall motion. There is mild left ventricular wall thickness. LVEF is 55%. The LV diastolic function was unable to be assessed due to atrial arrhythmia. Right Ventricle The right ventricle is normal size. The right ventricular systolic function is normal. Atria The left atrium size is normal. The right atrium size is normal. Aortic Valve The aortic valve is normal in structure. No aortic regurgitation is present. There is no aortic valvular stenosis. Mitral Valve The mitral valve is normal in structure. There is trace of mitral valve regurgitation noted. There is no mitral valve stenosis. Tricuspid Valve The tricuspid valve is normal in structure. There is no tricuspid valve regurg itation noted. Pulmonic Valve The pulmonary valve is normal in structure. There is mild pulmonic valvular regurgitation. Great Vessels The aortic root is normal in size. IVC is dilated and collapses >50% with inspiration. Pericardium There is no pericardial effusion. Other Information Quality : Technically diffcult study due to body habitus Conclusion LVEF is 55%. DICTATED BY: CAROL GALLAGHER MD DATE: 01/31/25 3353 ELECTRONICALLY SIGNED BY: CAROL GALLAGHER MD DATE: 01/31/252052 PATIENT: CHARY HERNANDEZ MR#: [id number] : 1980 SEX: M AGE: 44 LOCATION: [facility] ORDER STATUS: ADM [facility] REPORT#: [id number] SERVICE REASON: r/o DVT ORDERING PHYSICIAN: BIANCA GARCIA PROCEDURE: VENOUS GRACIE - US VENOUS DOPPLER BILATERAL EXAM: US for Deep Venous Thrombosis, bilateral Lower Extremity. CLINICAL HISTORY: Rule out deep venous thrombosis. TECHNIQUE: Real-time ultrasound scan of the veins of the bilateral lower extremity with color Doppler flow, spectral waveform analysis and compression. COMPARISON: None provided. FINDINGS: DEEP VEINS: The common femoral, superficial femoral, and popliteal veins are echolucent and compressible. There is normal color Doppler flow throughout. The visualized calf veins appear patent. SOFT TISSUES: No popliteal fossa cyst or other abnormalities. IMPRESSION: No deep venous thrombosis is evident on bilateral lower extremity examination. /[place] DICTATED BY: LARISSA LEMONS Jr., MD DATE: 01/31/25400 ELECTRONICALLY SIGNED BY: LARISSA LEMONS Jr., MD DATE: 01/31/25400 PATIENT: CHARY HERNANDEZ MR#: [id number] : 1980 SEX: M AGE: 44 LOCATION: [facility] ORDER STATUS: ADM IN REPORT#: [id number] SERVICE REASON: r/o P.E. ORDERING PHYSICIAN: BIANCA GARCIA PROCEDURE: CHES PE - CT CHEST PE PROTOCOL WWO CONT EXAMINATION: CT Chest, with intravenous contrast CLINICAL HISTORY: Patient presents to rule out pulmonary embolism. TECHNIQUE: Axial computed tomography images of the chest, with intravenous contrast. Multiplanar reformations were generated and reviewed. CONTRAST: With intravenous contrast. COMPARISON: None provided. FINDINGS: CHEST: LUNGS: The lungs demonstrate extensive diffuse consolidation and airspace opacities and ground-glassing throughout the bilateral lungs, predominantly involving the lower lobes and perihilar regions. No pulmonary mass. PLEURAL SPACES: No pneumothorax or pleural effusion. CARDIOVASCULAR: Cardiomegaly is present. No significant pericardial effusion. The main pulmonary artery measures 3.2 cm. The right pulmonary artery measures 2 cm. The left pulmonary artery measures 2.2 cm. The pulmonary arteries show no evidence of filling defects. Normal caliber thoracic aorta. MEDIASTINUM AND SILVINO: No mediastinal or hilar lymphadenopathy. ABDOMEN : Hepatosplenomegaly BONES: No acute or aggressive osseous abnormality. IMPRESSION: No acute pulmonary embolism. Extensive diffuse bilateral pulmonary airspace opacities, predominantly in the lower lobes and perihilar regions, consistent with pulmonary edema. Cardiomegaly with mild pulmonary arterial hypertension. Hepatosplenomegaly. /[place] DICTATED BY: LARISSA LEMONS Jr., MD DATE: 01/31/25803 ELECTRONICALLY SIGNED BY: LARISSA LEMONS Jr., MD DATE: 01/31/25803 ASSESSMENT: Hyperkalemia Acute renal failure Acute hypoxemic and hypercarbic respiratory failure now with worsening respiratory distress ARDS Community-acquired pneumonia suspected Pneumocystis Toxic metabolic encephalopathy on admission Acute sepsis on admission without septic shock secondary to community-acquired pneumonia HIV positive newly diagnosed stage IV. Not on anti-retroviral medication CD4 count: 19 Immunocompromise status Suspected TB Obstructive sleep apnea, untreated/undiagnosed Morbid obesity, BMI 33.6 Volume overload PLAN: Labs, diagnostic, radiologic exams reviewed and interpreted by myself and supervising physician. We have reviewed external records in detail There is no need for emergent renal replacement therapy at this time. Low dose potassium replacement ordered for potassium <3.5 mmol/L Start Epogen 39456 units subQ weekly Order repeat UA Continue with close monitoring of electrolytes and renal function Order CBC, CMP, complete iron panel, ferritin and electrolytes in am Continue with antibiotics as per ID Continue mechanical ventilation and sedation IV pressors as needed Monitor blood pressure adjust medication doses as needed May use Dilaudid 0.5 mg IV every 6 hours as needed for severe pain Monitor blood sugars Strict intake, output, and daily weight should be monitored Please renally adjust medications Avoid nephrotoxic and nonsteroidal drugs Avoid contrast if possible Will continue to monitor renal function, anemia, electrolytes Treatment plan discussed with patient Questions were answered We have discussed with the other team physicians in detail about the care plan We will continue to monitor the patient closely Total critical care time spent with patient, nursing staff, critical care team over 35 minutes ATTESTATION BY PHYSICIAN I have seen and examined the patient. I reviewed the documentation, medical decision making, and treatment plan as noted by the mid-level provider above. I agree with the findings and plan of care. DARBY PORRAS MD, [facility] Feb 20, 2025 12:40
--- NOTE | 2025-02-20 13:15 | PN ---
[facility] PROGRESS NOTE Date Patient Seen: Feb 20, 2025 Time of Visit: 13:11 Supervising Physician: [Dr. Gerber ] Primary Care Physician: [Avi LESTER] Outpatient Specialists: [ ] Inpatient Consults: [Dr. Prince, [facility] team-ICU] PROBLEM LIST: Acute hypoxemic and hypercarbic respiratory failure on admission requiring ETT and mechanical ventilator support ARDS Pneumocystis pneumonia Acute metabolic acidosis Toxic metabolic encephalopathy on admission Acute sepsis on admission without septic shock secondary to community-acquired pneumonia HIV positive newly diagnosed stage IV. Not on anti-retroviral medication Acquired immunodeficiency syndrome Obstructive sleep apnea, untreated/undiagnosed Morbid obesity, BMI 33.6 Acute kidney injury on top of chronic kidney disease INTERVAL HISTORY: Severe Lactic Acidosis Patient seen and examined all labs and imagining reviewed. Patient is on 60% FiO2 on the mechanical ventilator yesterday we were at 100% Maximum dose for Gigi and Vasopressin Levo has been started this morning Patient on Precedex Continues with hypoxia, continues with hypotension Continues with elevated creatinine and BUN Urine output is 100 mls in 12 hours. With positive balance of 11L from admission Remains NPO wtih greater than 500cc residuals No BM No seizures, no fevers Plan: Bicarb and repeat ABG continue ventilator support continue Precedex poor prognosis family updated Patient remains full code Total Critical care time spent 60 minutes, this excludes any procedures performed or anytime spent in educational or teaching. REVIEW OF SYSTEMS: Patient sedated on maximum dose Precedex PHYSICAL EXAM: On mechanical ventilator support via endotracheal tube. Bed ridden and nonverbal, sedated GENERAL: on Vent assistance, responding to self HEENT: EOMI, Sclera non icteric, moist mucosa NECK: Supple, no JVD, trachea midline LUNGS: Bilateral rhonchi HEART: Regular rate and rhythm. Normal S1 and S2, without murmurs ABD: Abdomen soft, nontender. Bowel sounds present, obese EXT: No clubbing cyanosis or edema : Dias in situ NEURO: Sedated Vital Signs (last 8hr) Date Time Temp Pulse Resp B/P (MAP) Pulse Ox O2 Delivery O2 Flow Rate FiO2 02/20/25 10:11 90/55 02/20/25 06:23 117 24 90/56 (67) 93 02/20/25 06:03 119 24 94/55 (68) 93 02/20/25 05:58 123 24 103/48 (66) 94 02/20/25 05:52 123 21 91/65 (74) 93 02/20/25 05:38 116 23 95/59 (71) 93 02/20/25 05:23 118 23 96/51 (66) 93 LABS: Hematology Labs: Test 02/20/25 04:50 Range/Units White Blood Count 5.7 4.8-10.8 K/uL Red Blood Count 2.79 L 4.50-6.20 MIL/uL Hemoglobin 8.4 L 14.0-18.0 g/dL Hematocrit 23.4 L 42-54 % Mean Corpuscular Volume 83.9 79-99 fL Mean Corpuscular Hemoglobin 30.1 27.0-33.0 pg Mean Corpuscular Hemoglobin Concent 35.9 32.0-36.0 g/dL Red Cell Distribution Width 15.6 H 11.0-15.5 % Platelet Count 91 L 130-400 K/uL Mean Platelet Volume 9.6 7.5-10.5 fL Immature Granulocyte % (Auto) 5.8 H 0-1 % Neutrophils (%) (Auto) 84.9 H 40.0-77.0 % Lymphocytes (%) (Auto) 6.3 L 21.0-51.0 % Monocytes (%) (Auto) 2.6 L 3.0-13.0 % Eosinophils (%) (Auto) 0.0 0.0-8.0 % Basophils (%) (Auto) 0.4 0.0-5.0 % Neutrophils # (Auto) 4.8 1.8-7.7 K/uL Lymphocytes # (Auto) 0.4 L 1.0-4.8 K/uL Monocytes # (Auto) 0.2 0.1-1.0 K/uL Eosinophils # (Auto) 0.00 0.00-0.70 K/uL Basophils # (Auto) 0.02 0.00-0.20 K/uL Absolute Immature Granulocyte (auto 0.33 0-1 K/uL Nucleated Red Blood Cells 3.5 H 0.0-0.19 % Chemistry Labs: Test 02/20/25 04:50 02/20/25 04:16 02/19/25 04:29 Range/Units Sodium Level 134 L 136-145 mmol/L Potassium Level 3.9 3.5-5.1 mmol/L Chloride Level 90 *L 101-111 mmol/L Carbon Dioxide Level 13 L 21-32 mmol/L Blood Urea Nitrogen 54 H 7-18 mg/dL Creatinine 2.3 H 0.5-1.3 mg/dL Glomerular Filtration Rate Calc 35 >90 mL/min Random Glucose 173 H 70-105 mg/dL Lactic Acid Level 21.6 H 0.8-2.5 mmol/L Total Calcium 6.7 L 8.5-10.1 mg/dL Phosphorus Level 5.1 H 2.5-4.9 mg/dL Magnesium Level 1.90 1.80-2.40 mg/dL Total Bilirubin 1.0 0.2-1.0 mg/dL Aspartate Amino Transf (AST/SGOT) 215 H 10-37 U/L Alanine Aminotransferase (ALT/SGPT) 111 H 12-78 U/L Alkaline Phosphatase 124 50-136 U/L B-Type Natriuretic Peptide 145 H 0-100 pg/mL Total Protein 4.8 L 6.0-8.3 g/dL Albumin 2.0 #L 3.5-5.0 g/dL Whole Blood Glucose 162 H 70-110 MG/DL Direct Bilirubin 0.2 0.0-0.3 mg/dL DIAGNOSTICS / RADIOLOGY RESULTS: [ ] NEURO: Avoid use of central acting medications will try to wean off sedation PULMONARY: Supplemental 02 as needed Titrate Fio2 to keep Spo2 > or = 90% DuoNebs and CPT as needed IS hourly while awake for pulmonary hygiene Out of bed to chair as tolerated VAP Bundle Vent/BIPAP Settings: [ BIPAP setting / rate of 18 FiO2 60%. ] CARDIOVASCULAR: Follow hemodynamics. Titrate vasopressor to keep MAP >65 or systolic blood pressure >95mmHg DRIPS: [Precedex ] LINES: [PIV] GI & NUTRITION: Continue nutritional support Aspirations precautions Prokinetic agents and laxatives as needed KIDNEYS & ELECTROLYTES: Strict monitoring of intake and output Daily weights Avoid nephrotoxic agents Monitor electrolytes and replace as needed Dias care-prevent CAUTI per nursing Goal urine output of 30mL/hr or 0.5mL/kg/hr Urine output: [ ] Fluid Balance: [ ] ENDOCRINE: Maintain blood glucose between 100-180 at all times. Insulin sliding scale for blood glucose management INFECTIOUS DISEASE: Trend temperature. Lara-culture if febrile. Micro: [ ] Antibiotics: [Vancomycin 01/30- IV Fluconazole: 01/30- IV Sulfa/TMP: 01/30-] HEMATOLOGY & COAGULATION: Monitor H&H. Keep Hgb > 7 Transfuse 1 unit of PRBC for Hgb < 7 Transfuse 1 pack of platelets of platelets < 20, 000 Watch for any signs and symptoms of bleeding SKIN: Pressure ulcer prevention per facility protocol Rehab: PT/OT Prophylaxis: GI: [Pepcid] DVT: [Heparin ] Code Status: Full Resuscitation Disposition: [ICU ] NETO STARR [facility] Feb 20, 2025 13:15
[2025-02-20 14:54] LABS: ABG BASE EXCESS -5.2 mmol/L (-2.0-3.0); ABG HCO3 20.6 mmol/L (21.0-28.0); ABG OXYGEN SATURATION 93.9 % (94.0-98.0); ABG PCO2 42 mmHg (35-48); ABG PH 7.310 (7.350-7.450); CARBON MONOXIDE 0.7 % (0.5-1.5); PO2, ARTERIAL BG 81.8 mmHg (83.0-108.0); TEMPERATURE, CELSIUS BG 37.0 CELSIUS (35.5-37.0); VENT MODE, BG AC (ROOM AIR)
[2025-02-20] MEDS ORDERED: SODIUM BICARB 8.4% 50ML SYRINGE IVP ONE (15:00)
[2025-02-20] MEDS ORDERED: MAGNESIUM SULFATE 1 GM/2 ML VIAL IM ONE (15:00)
[2025-02-20] MEDS ORDERED: DEXTROSE 50%-WATER 50 ML DISP.SYRIN IV ONE (15:00)
[2025-02-20] MEDS ORDERED: CACL 1GM SYG IVP ONE (15:00)
[2025-02-20] MEDS: MEROPENEM 1GM 1 GM VIAL IVPB SCH (16:22)
[2025-02-20] MEDS: PHARMACY COMMUNICATION MISC SCH (16:30)
--- NOTE | 2025-02-20 16:30 | NUR ---
Spoke with family regarding next steps of care. David Troncoso NP updated family on patient and asked if they would like to continue with the current plan of care which included possible trach and peg or possibility of comfort care for patient as well as DNR. Family said they would get together and let us know the decision. Deana (sister/patient POA) came back and said the family will continue with current plan and talk about trach and peg as well as keeping patient full code. I explained we will honor their wishes and we will inform the MD of the decision pertaining to trach and peg in the morning.
[2025-02-20] MEDS: EPOETIN ALFA-EPBX (NON-ESRD) 10,000 UNIT/ML VIAL SQ SCH (16:42)
--- NOTE | 2025-02-20 17:15 | PN ---
INFECTIOUS DISEASE FOLLOWUP NOTE DATE OF SERVICE: 02/19/2025 SUBJECTIVE: The patient is seen and examined at bedside today. The patient remains orally intubated, on ventilatory support. No fever. No diarrhea. The patient has ____. PHYSICAL EXAMINATION: VITAL SIGNS: Temperature 97.8. EYES: No icterus. Pupils are equal and reactive. HENT: No oral thrush seen. Orally intubated, on ventilatory support. NECK: Supple. No JVD or thyromegaly. LUNGS: Crackles. No rhonchi. CARDIOVASCULAR: S1 and S2, regular. No murmur heard. ABDOMEN: Morbidly obese, soft and nontender. Bowel sound is present. CENTRAL NERVOUS SYSTEM: The patient is sedated, bedbound. SKIN: No rashes, no itchiness. LYMPHATIC: No peripheral lymphadenopathy. BACK: ____ ulcer in the sacrococcygeal area. ASSESSMENT: A 44-year-old male with multiple medical problems which include: * Sepsis. * Newly diagnosed human immunodeficiency virus. * Pneumonia. * Obesity. * ____ * Sacrococcygeal ulcer. * Renal failure. * Debility. PLAN: * Continue antibiotics. * Continue critical care support. * Continue wound care. * Continue ventilatory support. * Monitor electrolytes. * The patient will be followed up closely. TID: [id number] RECEIPT: [id number]
[2025-02-20 17:22] LABS: ABG BASE EXCESS -6.1 mmol/L (-2.0-3.0); ABG HCO3 19.5 mmol/L (21.0-28.0); ABG OXYGEN SATURATION 92.8 % (94.0-98.0); ABG PCO2 39 mmHg (35-48); ABG PH 7.317 (7.350-7.450); CARBON MONOXIDE 0.6 % (0.5-1.5); PO2, ARTERIAL BG 77.5 mmHg (83.0-108.0); TEMPERATURE, CELSIUS BG 37.0 CELSIUS (35.5-37.0); VENT MODE, BG AC (ROOM AIR)
--- NOTE | 2025-02-20 17:40 | PN ---
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 Methylprednisolone Sodium Succinate (Solu-medROL 40MG) 40 mg BID IVP 01/30/25 21:00 01/31/25 04:16 DC 01/30/25 21:18 40 MG Methylprednisolone Sodium Succinate (Solu-medROL 40MG) 40 mg BID IVP 02/07/25 21:00 03/09/25 20:59 02/20/25 10:17 40 MG Methylprednisolone Sodium Succinate (Solu-medROL 40MG) 40 mg Q8H IVP 01/31/25 04:30 02/02/25 11:57 DC 02/02/25 11:47 40 MG Methylprednisolone Sodium Succinate (Solu-medROL 40MG) 60 mg Q6H IVP 02/02/25 12:00 02/07/25 15:17 DC 02/07/25 11:27 60 MG Metoclopramide HCl (regLAN 10MG IV) 10 mg Q8H IVP 02/06/25 16:00 03/08/25 15:59 02/20/25 16:23 10 MG Metoprolol Tartrate (loprESSOR) 5 mg Q6H PRN IV INCREASED HEART RATE >120 BPM 02/19/25 14:30 02/20/25 00:50 DC 02/19/25 14:42 5 MG Morphine Sulfate (morPHINE 2MG SYG) 2 mg ONCE STAT IVP 01/31/25 05:41 01/31/25 05:45 DC 01/31/25 05:51 2 MG Multi-Ingred Cream/Lotion/Oil/ Oint (Artificial Tears Eye Oint) Apply ointment to both e... BID OU 02/20/25 21:00 03/02/25 14:59 Multi-Ingred Cream/Lotion/Oil/ Oint (Artificial Tears Eye Oint) Apply ointment to both e... Q4H OU 01/31/25 15:00 02/20/25 16:14 DC 02/20/25 12:47 1 APPL Norepinephrine Bitartrate (Norepineph 16 Mg/250ml NS Premix) Continuous PROTOCOL IV 02/11/25 15:30 02/20/25 09:19 DC 02/19/25 17:16 16 MG Norepinephrine Bitartrate (Norepineph 16 Mg/250ml NS Premix) sbp>90 PROTOCOL IV 02/05/25 11:30 02/11/25 15:27 DC Norepinephrine Bitartrate 32 mg/ Sodium Chloride 250 ml @ 0 mls/hr PROTOCOL IV 02/20/25 09:30 03/22/25 09:29 Ondansetron HCl (zoFRAN 4MG INJ) 4 mg Q6H PRN IV NAUSEA/VOMITING 01/30/25 20:00 03/01/25 19:59 02/09/25 08:28 4 MG Pantoprazole Sodium (PROTonix 40MG INJ) 40 mg DAILY IVP 02/12/25 09:00 03/14/25 08:59 02/20/25 10:13 40 MG Pharmacy Profile Note (Pharmacy Communication) 1 each ONCE MISC 02/05/25 11:30 02/05/25 11:23 DC Pharmacy Profile Note (Pharmacy Communication) 1 each ONCE MISC 02/16/25 11:00 02/16/25 11:08 DC Pharmacy Profile Note (Pharmacy Communication) 1 each ONCE MISC 02/20/25 16:30 02/27/25 16:29 Pharmacy Profile Note (Pharmacy Communication) 1 each ONCE MISC 02/10/25 14:00 02/10/25 14:21 DC Phenylephrine HCl 100 mg/Sodium Chloride 250 ml @ 0 mls/hr PROTOCOL IV 02/20/25 01:00 03/22/25 00:59 02/20/25 14:32 62.46 MLS/HR Piperacillin Sod/ Tazobactam Sod (Zosyn 3.375gm+NS 50ml) 3.375 gm Q8H IVPB 01/31/25 09:30 01/31/25 12:56 DC 01/31/25 11:04 3.375 GM Piperacillin Sod/ Tazobactam Sod (Zosyn 3.375gm+NS 50ml) 3.375 gm ZOSY8 IVPB 01/31/25 13:00 02/01/25 13:33 DC 02/01/25 11:54 3.375 GM Polyethylene Glycol (MIRalax 3350 17 GM POWD.PACK) 17 gm DAILY PO 02/07/25 11:30 03/09/25 11:29 02/19/25 08:20 17 GM Propofol (DIPRivan 1000MG/ 100ML) 1,000 mg PROTOCOL PRN IV SEDATION 02/05/25 11:30 02/08/25 15:52 DC 02/08/25 08:29 1,000 MG Propofol (DIPRivan 1000MG/ 100ML) 1,000 mg PROTOCOL PRN IV SEDATION 02/15/25 13:30 03/17/25 13:29 02/20/25 17:21 1,000 MG Propofol (DIPRivan 1000MG/ 100ML) 1,000 mg PROTOCOL PRN IV SEDATION 02/12/25 23:30 02/15/25 13:07 DC 02/13/25 08:16 1,000 MG Raltegravir (Isentress) 400 mg BID PO 02/10/25 21:00 03/12/25 20:59 02/20/25 10:18 400 MG Silver Sulfadiazine (Silvadene) 1 APPL BID TP 02/16/25 21:00 03/18/25 20:59 02/20/25 10:21 1 GIORGI Sodium Bicarbonate 150 meq/Dextrose 1,150 ml @ 200 mls/hr Q5H45M IVP 02/16/25 06:30 02/20/25 09:01 DC 02/19/25 22:17 200 MLS/HR Sodium Bicarbonate (Sodium Bicarbonate) 100 mg DAILY PO 02/14/25 12:00 02/14/25 12:35 DC Sodium Bicarbonate (Sodium Bicarb 50meq 50ml Vial) 50 meq Q8H6 IV 02/06/25 14:00 02/07/25 16:00 DC 02/07/25 14:47 50 MEQ Sodium Chloride 500 ml @ 0 mls/hr Q0M IV 02/20/25 01:00 02/20/25 08:58 DC Sodium Chloride 1,000 ml @ 100 mls/hr Q10H IV 01/30/25 20:00 01/31/25 05:38 DC 01/30/25 21:18 100 MLS/HR Sodium Chloride (NS 50ml) 50 ml AD IV 02/10/25 06:00 03/12/25 05:59 Sodium Zirconium Cyclosilicate (Lokelma 10gm Powder) 10 gm BID PO 02/09/25 12:00 02/10/25 11:59 DC 02/10/25 08:29 10 GM Sodium Zirconium Cyclosilicate (Lokelma 10gm Powder) 10 gm TID PO 02/10/25 14:00 02/11/25 13:59 DC 02/11/25 08:26 10 GM Trimethoprim/ Sulfamethoxazole 480 mg/Dextrose 500 ml @ 250 mls/hr Q6H IV 01/30/25 21:00 02/01/25 11:57 DC 02/01/25 02:49 250 MLS/HR Trimethoprim/ Sulfamethoxazole 480 mg/Dextrose 500 ml @ 250 mls/hr Q6H IV 02/01/25 12:00 02/10/25 15:05 DC 02/10/25 08:27 250 MLS/HR Trimethoprim/ Sulfamethoxazole 480 mg/Dextrose 500 ml @ 250 mls/hr Q6H IV 02/20/25 17:00 03/02/25 16:59 02/20/25 16:50 250 MLS/HR Trimethoprim/ Sulfamethoxazole 480 mg/Dextrose 500 ml @ 250 mls/hr Q6H IV 02/10/25 16:00 02/20/25 15:59 DC 02/20/25 04:23 250 MLS/HR Trimethoprim/ Sulfamethoxazole / Dextrose 100 ml @ 100 mls/hr AD IV 01/30/25 20:00 02/09/25 19:59 UNV Vasopressin 40 units/Sodium Chloride 40 ml @ 0 mls/hr AD PRN IV TITRATE 02/19/25 22:30 03/21/25 22:29 02/20/25 04:22 1.8 MLS/HR Wound Care/ Dressing Products (Venelex Ointment) BID TP 02/09/25 21:00 02/16/25 16:23 DC 02/16/25 08:36 1 GM DIAGNOSTICS / RADIOLOGY: [place] [address] IMAGING REPORT Signed PATIENT: CHARY HERNANDEZ MR#: [id number] : 1980 SEX: M AGE: 44 LOCATION: [facility] ORDER 0852 STATUS: ADM IN REPORT#: [id number] SERVICE 0851 REASON: chf ORDERING PHYSICIAN: NETO STARR PROCEDURE: CXR1VW - CHEST 1VW EXAM: CR Chest, 4 View. CLINICAL HISTORY: chf COMPARISON: Compared with the previous X-ray FINDINGS: LUNGS: There are infiltrating airspace opacities in the lower zone. PLEURAL SPACES: Bilateral small-volume pleural effusion. MEDIASTINUM: Cardiac size and mediastinal contours are mildly enlarged with pulmonary venous congestion. BONES: No acute osseous abnormality. IMPRESSION: Few airspace opacities in the bilateral lower zone are suggestive of pulmonary edema. Interval reduction. Bilateral small-volume pleural effusion. Interval reduction. The endotracheal tube is located above the catina. Left subclavian PICC line present, crossing the midline, and the tip is located in the proximal superior vena cava. The nasogastric tube is located below the left hemidiaphragm; the tip is not included in the field of view. /Lyman DICTATED BY: LARISSA LEMONS Jr., MD DATE: 02/20/251102 ELECTRONICALLY SIGNED BY: LARISSA LEMONS Jr., MD DATE: 02/20/251102 ASSESSMENT: Acute hypoxemic respiratory failure POA 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 Acute hypoxemic respiratory failure POA Patient is currently intubated, continue on propofol and fentanyl drips. Chest x-ray on presentation showed diffuse bilateral pneumonia with ARDS type picture. CT chest on presentation showed bilateral airspace opacities involving nearly entire lung curtis raising concern for severe diffuse pneumonia/ARDS like pattern Continue Solu-Medrol 40mg IV bid DuoNeb inhalation q.4h Pulmonology on board, we will continue to follow the recommendations Suspected Pneumocystis Jirovecii Pneumonia (PJP )POA Chest x-ray on presentation showed diffuse bilateral pneumonia with ARDS type picture CT chest showed bilateral airspace opacities involving nearly entire lung curtis raising concern for severe diffuse pneumonia/ARDS like pattern Continue fluconazole 200 mg IV Q 24 , TMP SMX q.6 discontinue cefepime and start Meropenem1 g IV every 8 hours and continue on Bactrim, doxycycline and fluconazole. Pulmonology, Infectious Disease on board. We will follow their recommendations. HIV infection with AIDS as he has a CD4 count of 19 Patient had history of on unsafe sexual practices with multiple partners reported by her sister HIV1 and 2 Ab, HIV P 24 Ag evaluation showed preliminary positive for both HIV1 and 2 antigen/antibody, 4th gen preliminary reactive Absolute CD4 count 19, CD4/CD8 ratio 0.04 HIV 1RNA PCR showed a viral load of [id number] Infectious Disease started Isentress 400 mg b.i.d., travuda tablet p.o. daily on 02/10/2025 Case management working with [facility] for HIV management. ID on board. Sepsis POA On presentation to ED patient's temperature 100.2, pulse 112, respiratory rate 28, lactic acid 2, procalcitonin 1.55 Chest x-ray showed diffuse bilateral pneumonia with ARDS type picture CT chest showed bilateral airspace opacities involving nearly entire lung curtis raising concern for severe diffuse pneumonia/ARDS like pattern Continue fluconazole 200 mg IV Q 24 , TMP SMX q.6 discontinue cefepime and start Meropenem1 g IV every 8 hours and continue on Bactrim, doxycycline and fluconazole. Lactic acid today at 21.2, bicarb dose increased to 200 We will trend white count, lactic acid Uncontrolled hyperglycemia secondary to steroids Blood glucose in the morning was 322 and well elevated likely from steroids. Continue to monitor the blood glucose level. Continue insulin sliding scale. Tuberculosis R/O POA 3 out of 3 sputum samples collected for AFB smear. Sputum sample is sent for respiratory culture, we will follow up with the culture results. No acid-fast bacilli in smear from first 2 samples, studies to continue. GI prophylaxis with Pepcid 20 mg IV DVT prophylaxis with heparin 5000 SQ q.12h ATTESTATION BY PHYSICIAN I have seen and examined the patient. I reviewed the documentation, medical decision making, and treatment plan as noted by the resident physician above. I agree with the findings and plan of care. Erick Kirby IV, MD, ABHINAV MD Feb 20, 2025 17:40
[2025-02-20] MEDS: ARTIFICIAL TEARS 3.5 GM OINTMENT OU SCH (21:00)
--- NOTE | 2025-02-20 21:29 | PN ---
INFECTIOUS DISEASE PROGRESS NOTE Date of Service: Feb 20, 2025 SUBJECTIVE: This is a 44-year-old male patient who remains in the ICU intubated and sedated. Patient is currently on vasopressor support. No fever, temperature is 97.5 with a WBC of 5.7. Hemoglobin is stable at 8.4 after the 1 unit of PRBC transfused yesterday. We will continue on Meropenem, Bactrim, doxycycline and fluconazole. PHYSICAL EXAM EYES: Anicteric. Pupils equal and reactive. HENT: Oral thrush. NECK: Supple, no JVD or thyromegaly. LUNGS: On mechanical ventilatory support. CARDIOVASCULAR: S1, S2 regular. No murmur heard. ABDOMEN: Soft, non tender, bowel sounds present, no organomegaly. CENTRAL NERVOUS SYSTEM: Intubated and sedated. SKIN: Rash on abdomen and lower extremities POA, resolved. LYMPHATICS: No peripheral lymphadenopathy MUSCULOSKELETAL: No joint swelling, erythema or tenderness. EXTREMITIES: No cyanosis or clubbing. Weakness. BACK: Unstageable sacral ulcer. GENITOURINARY: No dysuria or hematuria. Dias catheter. Vital Sign (Last 12 Hours) 02/20/25 02/20/25 02/20/25 02/20/25 09:30 09:35 09:45 10:00 Pulse 120 108 114 114 Resp 18 23 26 B/P (MAP) 95/68 (77) 113/59 (77) 115/49 (71) Pulse Ox 95 97 95 FiO2 60 60 60 60 02/20/25 02/20/25 02/20/25 02/20/25 10:11 10:15 10:30 10:45 Pulse 115 114 113 Resp 26 25 28 B/P (MAP) 90/55 110/52 (71) 103/52 (69) 101/45 (63) Pulse Ox 94 94 94 FiO2 60 60 60 02/20/25 02/20/25 02/20/25 02/20/25 11:00 11:15 11:27 11:30 Pulse 112 112 98 113 Resp 24 16 22 8 B/P (MAP) 90/52 (65) 104/47 (66) 107/50 (69) Pulse Ox 95 97 98 FiO2 60 60 60 02/20/25 02/20/25 02/20/25 02/20/25 11:45 12:00 12:00 12:00 Pulse 111 112 Resp 18 10 B/P (MAP) 106/52 (70) 109/52 (71) Pulse Ox 99 96 98 O2 Delivery Ventilator+ FiO2 60 60 60 60 02/20/25 02/20/25 02/20/25 02/20/25 12:00 12:15 12:20 12:30 Temp 97.5 Pulse 111 100 118 Resp 18 10 B/P (MAP) 116/52 (73) 112/64 (80) Pulse Ox 99 94 FiO2 60 60 60 02/20/25 02/20/25 02/20/25 02/20/25 12:45 13:00 13:15 13:30 Pulse 118 113 112 111 Resp 25 26 16 16 B/P (MAP) 109/48 (68) 114/60 (78) 115/51 (72) 109/52 (71) Pulse Ox 96 97 96 94 FiO2 60 60 60 60 02/20/25 02/20/25 02/20/25 02/20/25 13:45 14:00 14:15 14:30 Pulse 115 115 114 112 Resp 19 15 16 B/P (MAP) 87/54 (65) 104/54 (71) 108/49 (68) 105/46 (65) Pulse Ox 95 95 96 95 FiO2 60 60 60 60 02/20/25 02/20/25 02/20/25 02/20/25 14:32 14:45 15:00 15:15 Pulse 116 117 117 Resp 22 26 22 B/P (MAP) 87/54 117/83 (94) 128/54 (78) 124/53 (76) Pulse Ox 95 95 95 FiO2 60 60 60 02/20/25 02/20/25 02/20/25 02/20/25 15:30 15:45 15:45 16:00 Pulse 113 114 112 Resp 22 20 B/P (MAP) 125/55 (78) 120/59 (79) Pulse Ox 94 94 FiO2 60 60 60 60 02/20/25 02/20/25 02/20/25 02/20/25 16:00 16:00 16:00 16:15 Temp 97.9 Pulse 110 109 Resp 17 19 B/P (MAP) 119/55 (76) 118/51 (73) Pulse Ox 94 92 93 O2 Delivery Ventilator+ FiO2 60 60 60 02/20/25 02/20/25 02/20/2515/25 16:30 16:45 17:00 17:15 Pulse 108 108 110 109 Resp 27 24 24 17 B/P (MAP) 115/52 (73) 98/47 (64) 98/49 (65) 103/48 (66) Pulse Ox 94 94 93 93 FiO2 60 60 60 60 02/20/25 02/20/25 02/20/25 02/20/25 17:30 17:45 18:00 18:15 Pulse 109 110 107 106 Resp 21 22 21 22 B/P (MAP) 102/44 (63) 112/56 (74) 126/109 (115) 83/30 (47) Pulse Ox 93 94 91 90 FiO2 60 60 60 60 02/20/25 02/20/25 02/20/25 02/20/25 18:30 18:45 18:50 18:51 Pulse 105 106 105 105 Resp 20 26 B/P (MAP) 70/29 (43) 90/54 (66) Pulse Ox 92 93 FiO2 60 60 60 02/20/25 02/20/25 20:00 20:59 Temp 97.9 FiO2 60 Intake & Output (last 24hrs)0 02/19/25 02/19/25 02/20/25 15:00 23:00 07:00 Intake Total 3472.1 ml 3671.1 ml 5226.4 ml Output Total 600 ml 10 ml Balance 3472.1 ml 3071.1 ml 5216.4 ml LABS: Laboratory: Test 02/20/25 17:20 02/20/25 04:50 02/20/25 04:16 02/19/25 04:29 Range/Units Blood Gas Specimen Type Arterial Arterial Blood pH 7.317 L 7.350-7.450 Arterial Blood Partial Pressure CO2 39 35-48 mmHg Arterial Blood Partial Pressure O2 77.5 L 83.0-108.0 mmHg Arterial Blood HCO3 19.5 L 21.0-28.0 mmol/L Arterial Blood Oxygen Saturation 92.8 L 94.0-98.0 % Arterial Blood Base Excess -6.1 L -2.0-3.0 mmol/L Hemoglobin (Blood Gas) 6.8 *L 13.5-17.5 g/dL Sodium (Blood Gas) 136 136-145 MMOL/L Bedside Potassium (Blood Gas) 3.6 3.4-4.5 MMOL/L Bedside Chloride (Blood Gas) 90 L 98-107 MMOL/L Bedside Glucose (Blood Gas) 113 H 65-95 MG/DL Bedside Ionized Calcium (Blood Gas) 0.84 L 1.15-1.33 MMOL/L Bedside Lactic Acid (Blood Gas) 17.56 *H 0.36-0.75 MMOL/L Blood Gas Temperature 37.0 35.5-37.0 CELSIUS Blood Gas Respiration Rate 26.0 min. Blood Gas Vent Mode AC ROOM AIR FiO2 60.0 % Blood Gas Tidal Volume 450 ml Blood Gas PEEP 12 cm H2O Blood Gas Specimen Comment RR,ASHLEY,RN White Blood Count 5.7 4.8-10.8 K/uL Red Blood Count 2.79 L 4.50-6.20 MIL/uL Hemoglobin 8.4 L 14.0-18.0 g/dL Hematocrit 23.4 L 42-54 % Mean Corpuscular Volume 83.9 79-99 fL Mean Corpuscular Hemoglobin 30.1 27.0-33.0 pg Mean Corpuscular Hemoglobin Concent 35.9 32.0-36.0 g/dL Red Cell Distribution Width 15.6 H 11.0-15.5 % Platelet Count 91 L 130-400 K/uL Mean Platelet Volume 9.6 7.5-10.5 fL Immature Granulocyte % (Auto) 5.8 H 0-1 % Neutrophils (%) (Auto) 84.9 H 40.0-77.0 % Lymphocytes (%) (Auto) 6.3 L 21.0-51.0 % Monocytes (%) (Auto) 2.6 L 3.0-13.0 % Eosinophils (%) (Auto) 0.0 0.0-8.0 % Basophils (%) (Auto) 0.4 0.0-5.0 % Neutrophils # (Auto) 4.8 1.8-7.7 K/uL Lymphocytes # (Auto) 0.4 L 1.0-4.8 K/uL Monocytes # (Auto) 0.2 0.1-1.0 K/uL Eosinophils # (Auto) 0.00 0.00-0.70 K/uL Basophils # (Auto) 0.02 0.00-0.20 K/uL Absolute Immature Granulocyte (auto 0.33 0-1 K/uL Nucleated Red Blood Cells 3.5 H 0.0-0.19 % Sodium Level 134 L 136-145 mmol/L Potassium Level 3.9 3.5-5.1 mmol/L Chloride Level 90 *L 101-111 mmol/L Carbon Dioxide Level 13 L 21-32 mmol/L Blood Urea Nitrogen 54 H 7-18 mg/dL Creatinine 2.3 H 0.5-1.3 mg/dL Glomerular Filtration Rate Calc 35 >90 mL/min Random Glucose 173 H 70-105 mg/dL Lactic Acid Level 21.6 H 0.8-2.5 mmol/L Total Calcium 6.7 L 8.5-10.1 mg/dL Phosphorus Level 5.1 H 2.5-4.9 mg/dL Magnesium Level 1.90 1.80-2.40 mg/dL Total Bilirubin 1.0 0.2-1.0 mg/dL Aspartate Amino Transf (AST/SGOT) 215 H 10-37 U/L Alanine Aminotransferase (ALT/SGPT) 111 H 12-78 U/L Alkaline Phosphatase 124 50-136 U/L B-Type Natriuretic Peptide 145 H 0-100 pg/mL Total Protein 4.8 L 6.0-8.3 g/dL Albumin 2.0 #L 3.5-5.0 g/dL Whole Blood Glucose 162 H 70-110 MG/DL Direct Bilirubin 0.2 0.0-0.3 mg/dL ASSESSMENT: Acute hypoxic and hypercapnic respiratory failure, s/p intubation. Multifocal pneumonia. Staphylococcus epidermidis bacteremia, possible a contaminant. Unstageable sacral wound. Suspected advanced stage HIV, not on anti-retroviral therapy, POA. Suspected Pneumocystis pneumonia, ruled out. Sepsis. Anemia requiring blood transfusion. Acute renal failure. Oral candidiasis. Morbid obesity. PLAN: Continue Meropenem. Continue Bactrim IV. Continue fluconazole IV. Continue doxycycline IV. Currently on vasopressor support. Continue on Truvada and Raltegravir. Continue GI prophylaxis. Continues on mechanical ventilatory support. Continue critical care support. Continue wound care. This case was reviewed and discussed with my supervising physician Dr. Sigala and the above assessment and plan was formulated and agreed upon. ATTESTATION BY PHYSICIAN I have seen and examined the patient. I reviewed the documentation, medical decision making, and treatment plan as noted by the mid-level provider above. I agree with the findings and plan of care. MIRZA SIGALA MD, [facility]TA [facility] Feb 20, 2025 21:29
[2025-02-21] VITALS (137 sets, daily range): BP systolic 47–213; BP diastolic 25–120; PULSE 98–157; RESP 16–35; TEMP 97.7–98; O2SAT 92–97
[2025-02-21 01:17] LABS: ABG BASE EXCESS -4.9 mmol/L (-2.0-3.0); ABG HCO3 21.1 mmol/L (21.0-28.0); ABG OXYGEN SATURATION 95.2 % (94.0-98.0); ABG PCO2 43 mmHg (35-48); ABG PH 7.306 (7.350-7.450); CARBON MONOXIDE 0.3 % (0.5-1.5); PO2, ARTERIAL BG 92.3 mmHg (83.0-108.0); TEMPERATURE, CELSIUS BG 37.0 CELSIUS (35.5-37.0)
--- NOTE | 2025-02-21 01:35 | NUR ---
reported ABG+ results to enrike eagle. Addendum: 02/21/25 at 0402 by MARIELY LOPEZ RN RN Provider also updated on patients status at the time of abg report.
[2025-02-21 07:09] LABS: ASPARTATE AMINOTRANSFERASE 174.0 U/L (10-37); CREATININE 2.7 mg/dL (0.5-1.3); GLOMERULAR FILTR. RATE CALC 29.0 mL/min (>90); GLUCOSE,RANDOM 128.0 mg/dL (70-105); PHOSPHORUS 5.5 mg/dL (2.5-4.9); SODIUM SERUM 138.0 mmol/L (136-145); TOTAL PROTEIN, SERUM 4.0 g/dL (6.0-8.3); UREA NITROGEN, BLOOD 68.0 mg/dL (7-18)
[2025-02-21 07:17] LABS: % IRON SATURATION 104.8 % (30-44); IRON, SERUM 87.0 mcg/dL (65-175)
--- NOTE | 2025-02-21 07:45 | NUR ---
Reported patient status to Adolfo Cullen. Provider ordered 1 packed red blood cell, 100 meq bicarb, 2 25% 50 ml albumin infusions, and to add epinephrine vasopressor.
[2025-02-21 07:59] LABS: IMMATURE GRANULOCYTE ABSOLUTE 0.02 K/uL (0-1); NUCLEATED RED BLOOD CELLS 1.7 % (0.0-0.19); PLATELET COUNT (AUTO) 37 K/uL (130-400); RED BLOOD CELL COUNT(AUTO) 2.08 MIL/uL (4.50-6.20); RED CELL DISTRIBUTION WIDTH 15.1 % (11.0-15.5); WHITE BLOOD COUNT (AUTO) 2.9 K/uL (4.8-10.8)
[2025-02-21] MEDS: ALBUMIN (HUMAN) 25% 50 ML IV ONE (08:00)
[2025-02-21] MEDS ORDERED: ALBUMIN (HUMAN) 25% 50 ML IV SCH (08:15)
[2025-02-21 08:36] LABS: ABG BASE EXCESS -5.2 mmol/L (-2.0-3.0); ABG HCO3 21.8 mmol/L (21.0-28.0); ABG OXYGEN SATURATION 49.2 % (94.0-98.0); ABG PCO2 53 mmHg (35-48); ABG PH 7.235 (7.350-7.450); CARBON MONOXIDE 1.8 % (0.5-1.5); DEVICE COMMENT ALINE; PO2, ARTERIAL BG < 45.0 mmHg (83.0-108.0); TEMPERATURE, CELSIUS BG 37.0 CELSIUS (35.5-37.0); VENT MODE, BG AC (ROOM AIR)
--- NOTE | 2025-02-21 08:48 | PN ---
[facility] PROGRESS NOTE Date Patient Seen: Feb 21, 2025 Time of Visit: 08:44 Supervising Physician: Dr Mushtaq Gerber Primary Care Physician: [Avi LESTER] Outpatient Specialists: [ ] Inpatient Consults: [Dr. Prince, [facility] team-ICU] PROBLEM LIST: Acute hypoxemic and hypercarbic respiratory failure on admission requiring ETT and mechanical ventilator support ARDS Pneumocystis pneumonia Acute metabolic acidosis Thrombocytopenia Toxic metabolic encephalopathy on admission Acute sepsis on admission without septic shock secondary to community-acquired pneumonia HIV positive newly diagnosed stage IV. Not on anti-retroviral medication Acquired immunodeficiency syndrome Obstructive sleep apnea, untreated/undiagnosed Morbid obesity, BMI 33.6 Acute kidney injury on top of chronic kidney disease INTERVAL HISTORY: Patient was seen and examined, all labs and imaging have been reviewed We are pending patient's chest x-ray patient is now at FiO2 of 100%, poor saturations, no longer acidotic Patient's hemoglobin was 5.9 on recheck, we are pending our 1st unit likely we will give 2 Platelets downtrending to 37, Heme-Onc consulted Wound care consulted for sacral wound Patient is maxed on 3 pressors, epi has been added, Plan: Bicarb and repeat ABG continue ventilator support Sedation poor prognosis family updated Patient remains full code Total Critical care time spent 60 minutes, this excludes any procedures per formed or anytime spent in educational or teaching. REVIEW OF SYSTEMS: Patient sedated on maximum dose Precedex PHYSICAL EXAM: On mechanical ventilator support via endotracheal tube. Bed ridden and nonverbal, sedated GENERAL: on Vent assistance, responding to self HEENT: EOMI, Sclera non icteric, moist mucosa NECK: Supple, no JVD, trachea midline LUNGS: Bilateral rhonchi HEART: Regular rate and rhythm. Normal S1 and S2, without murmurs ABD: Abdomen soft, nontender. Bowel sounds present, obese EXT: No clubbing cyanosis or edema : Dias in situ NEURO: Sedated Vital Signs (last 8hr) Date Time Temp Pulse Resp B/P (MAP) Pulse Ox O2 Delivery O2 Flow Rate FiO2 02/21/25 06:28 144 26 02/21/25 06:25 144 100 02/21/25 04:00 97.9 02/21/25 03:46 97 Ventilator+ 60 02/21/25 03:44 60 02/21/25 03:36 146 60 LABS: Hematology Labs: Test 02/21/25 07:52 Range/Units White Blood Count 2.9 L 4.8-10.8 K/uL Red Blood Count 2.08 L 4.50-6.20 MIL/uL Hemoglobin 5.9 #*L 14.0-18.0 g/dL Hematocrit 16.8 #*L 42-54 % Mean Corpuscular Volume 80.8 79-99 fL Mean Corpuscular Hemoglobin 28.4 27.0-33.0 pg Mean Corpuscular Hemoglobin Concent 35.1 32.0-36.0 g/dL Red Cell Distribution Width 15.1 11.0-15.5 % Platelet Count 37 #L 130-400 K/uL Mean Platelet Volume 9.8 7.5-10.5 fL Immature Granulocyte % (Auto) 0.7 0-1 % Neutrophils (%) (Auto) 91.3 H 40.0-77.0 % Lymphocytes (%) (Auto) 5.6 L 21.0-51.0 % Monocytes (%) (Auto) 2.4 L 3.0-13.0 % Eosinophils (%) (Auto) 0.0 0.0-8.0 % Basophils (%) (Auto) 0.0 0.0-5.0 % Neutrophils # (Auto) 2.6 1.8-7.7 K/uL Lymphocytes # (Auto) 0.2 L 1.0-4.8 K/uL Monocytes # (Auto) 0.1 0.1-1.0 K/uL Eosinophils # (Auto) 0.00 0.00-0.70 K/uL Basophils # (Auto) 0.00 0.00-0.20 K/uL Absolute Immature Granulocyte (auto 0.02 0-1 K/uL Nucleated Red Blood Cells 1.7 H 0.0-0.19 % Chemistry Labs: Test 02/21/25 07:28 02/21/25 06:11 02/20/25 04:50 Range/Units Whole Blood Glucose 115 H 70-110 MG/DL Sodium Level 138 136-145 mmol/L Potassium Level 4.1 3.5-5.1 mmol/L Chloride Level 92 L 101-111 mmol/L Carbon Dioxide Level 20 L 21-32 mmol/L Blood Urea Nitrogen 68 H 7-18 mg/dL Creatinine 2.7 H 0.5-1.3 mg/dL Glomerular Filtration Rate Calc 29 >90 mL/min Random Glucose 128 H 70-105 mg/dL Lactic Acid Level 15.1 H 0.8-2.5 mmol/L Total Calcium 6.0 *L 8.5-10.1 mg/dL Phosphorus Level 5.5 H 2.5-4.9 mg/dL Magnesium Level 1.70 L 1.80-2.40 mg/dL Iron Level 87 # 65-175 mcg/dL Total Iron Binding Capacity 83 L 250-450 mcg/dL Percent Iron Saturation 104.8 H 30-44 % Ferritin 52575 H 30-400 ng/mL Total Bilirubin 1.1 H 0.2-1.0 mg/dL Aspartate Amino Transf (AST/SGOT) 174 H 10-37 U/L Alanine Aminotransferase (ALT/SGPT) 88 H 12-78 U/L Alkaline Phosphatase 109 50-136 U/L Total Protein 4.0 L 6.0-8.3 g/dL Albumin 1.6 L 3.5-5.0 g/dL B-Type Natriuretic Peptide 145 H 0-100 pg/mL DIAGNOSTICS / RADIOLOGY RESULTS: [ ] NEURO: Avoid use of central acting medications will try to wean off sedation PULMONARY: Supplemental 02 as needed Titrate Fio2 to keep Spo2 > or = 90% DuoNebs and CPT as needed IS hourly while awake for pulmonary hygiene Out of bed to chair as tolerated VAP Bundle Vent/BIPAP Settings: [ BIPAP setting 12/11 rate of 18 FiO2 60%. ] CARDIOVASCULAR: Follow hemodynamics. Titrate vasopressor to keep MAP >65 or systolic blood pressure >95mmHg DRIPS: [Precedex ] LINES: [PIV] GI & NUTRITION: Continue nutritional support Aspirations precautions Prokinetic agents and laxatives as needed KIDNEYS & ELECTROLYTES: Strict monitoring of intake and output Daily weights Avoid nephrotoxic agents Monitor electrolytes and replace as needed Dias care-prevent CAUTI per nursing Goal urine output of 30mL/hr or 0.5mL/kg/hr Urine output: [ ] Fluid Balance: [ ] ENDOCRINE: Maintain blood glucose between 100-180 at all times. Insulin sliding scale for blood glucose management INFECTIOUS DISEASE: Trend temperature. Lara-culture if febrile. Micro: [ ] Antibiotics: [Vancomycin 01/30- IV Fluconazole: 01/30- IV Sulfa/TMP: 01/30-] HEMATOLOGY & COAGULATION: Monitor H&H. Keep Hgb > 7 Transfuse 1 unit of PRBC for Hgb < 7 Transfuse 1 pack of platelets of platelets < 20, 000 Watch for any signs and symptoms of bleeding SKIN: Pressure ulcer prevention per facility protocol Rehab: PT/OT Prophylaxis: GI: [Pepcid] DVT: [Heparin ] Code Status: Full Resuscitation Disposition: [ICU ] BIANCA WICK PAC Feb 21, 2025 08:48
[2025-02-21 09:58] LABS: BAND NEUTROPHILS % (MANUAL) 34 % (0-2); LYMPHOCYTES % (MANUAL) 7 % (22-44); METAMYELOCYTES % 4 % (0-0); MONOCYTES % (MANUAL) 1 % (2-9); SEGMENTED NEUTROPHILS % 54 % (40-70)
[2025-02-21 09:59] LABS: MAN.DIFF COMMENT-IMPRESSION MANUAL DIFFERENTIAL; PLATELET MORPHOLOGY COMMENT MARKED DEC; WBC MORPHOLOGY CONSISTENT W/DIFF
[2025-02-21] MEDS: SODIUM BICARB 50MEQ 50ML VIAL IV ONE (10:28)
--- NOTE | 2025-02-21 12:37 | PN ---
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 Furosemide (LASix 20MG VIAL) 20 mg Q8H IV 02/06/25 16:00 02/12/25 14:08 DC 02/12/25 10:00 20 MG Furosemide (LASix 40MG VIAL) 20 mg ONCE STAT IV 01/31/25 05:37 01/31/25 05:40 DC 01/31/25 05:45 20 MG Furosemide (LASix 40MG VIAL) 40 mg Q8H IV 02/12/25 14:00 02/12/25 23:00 DC 02/12/25 21:23 40 MG Glucagon (Glucagon 1mg Kit) 1 mg AD PRN IM HYPOGLYCEMIA PROTOCOL 01/31/25 05:00 03/02/25 04:59 Guaifenesin/ Dextromethorphan (RobiTUSSin DM 200/20MG 10ML) 10 ml Q4H PRN PO COUGH 01/30/25 20:00 03/01/25 19:59 Heparin Sodium (Porcine) (HEParin 5,000 UNIT VIAL) 5,000 unit Q12H SQ 01/31/25 09:00 02/14/25 10:56 DC 02/14/25 09:01 5,000 UNIT Insulin Glargine (LANtus 100 UNITS/ML 10 ML VIAL) 20 units BID SQ 02/04/25 21:00 02/06/25 14:49 DC 02/06/25 10:03 20 UNITS Insulin Glargine (LANtus 100 UNITS/ML 10 ML VIAL) 30 units BID SQ 02/06/25 21:00 03/08/25 20:59 Hold 02/14/25 08:59 30 UNITS Insulin Human Regular (humuLIN R 100 UNIT/ML 3ML) INSULIN SLIDING SCAL... ACHS SQ 02/07/25 16:30 02/07/25 11:56 DC Insulin Human Regular (humuLIN R 100 UNIT/ML 3ML) INSULIN SLIDING SCAL... Q4H4 SQ 02/15/25 20:00 02/20/25 16:14 DC 02/18/25 12:24 4 UNIT Insulin Human Regular (humuLIN R 100 UNIT/ML 3ML) INSULIN SLIDING SCAL... Q6H6 SQ 01/31/25 06:00 02/07/25 11:55 DC 02/07/25 06:03 5 UNIT Insulin Human Regular (humuLIN R 100 UNIT/ML 3ML) INSULIN SLIDING SCAL... Q6H6 SQ 02/20/25 18:00 03/09/25 11:59 Insulin Human Regular (humuLIN R 100 UNIT/ML 3ML) INSULIN SLIDING SCAL... Q6H6 SQ 02/07/25 12:00 02/15/25 16:03 DC 02/08/25 18:27 4 UNIT Labetalol HCl (TRANdate 20MG SYG) 10 mg Q4HPRN PRN IV ADMINISTER FOR SBP > 180 02/04/25 13:00 03/06/25 12:59 02/13/25 11:57 10 MG Lactulose (Constulose 20gm/ 30ml Udcup) 20 gm BID PRN PO CONSTIPATION 02/07/25 11:30 03/09/25 11:29 02/09/25 08:28 20 GM Magnesium Sulfate 50 ml @ 0 mls/hr PROTOCOL PRN IV Hypomagnesmia 02/17/25 05:30 03/19/25 05:29 Meropenem (Merrem 1gm) 1 gm Q12H IVPB 02/20/25 15:30 02/26/25 11:29 02/21/25 03:05 1 GM Meropenem (Merrem 1gm) 1 gm Q8H IVPB 02/16/25 11:30 02/20/25 09:06 DC 02/20/25 02:45 1 GM Methylprednisolone Sodium Succinate (Solu-medROL 40MG) 40 mg BID IVP 01/30/25 21:00 01/31/25 04:16 DC 01/30/25 21:18 40 MG Methylprednisolone Sodium Succinate (Solu-medROL 40MG) 40 mg BID IVP 02/07/25 21:00 03/09/25 20:59 02/21/25 10:29 40 MG Methylprednisolone Sodium Succinate (Solu-medROL 40MG) 40 mg Q8H IVP 01/31/25 04:30 02/02/25 11:57 DC 02/02/25 11:47 40 MG Methylprednisolone Sodium Succinate (Solu-medROL 40MG) 60 mg Q6H IVP 02/02/25 12:00 02/07/25 15:17 DC 02/07/25 11:27 60 MG Metoclopramide HCl (regLAN 10MG IV) 10 mg Q8H IVP 02/06/25 16:00 03/08/25 15:59 02/21/25 10:28 10 MG Metoprolol Tartrate (loprESSOR) 5 mg Q6H PRN IV INCREASED HEART RATE >120 BPM 02/19/25 14:30 02/20/25 00:50 DC 02/19/25 14:42 5 MG Morphine Sulfate (morPHINE 2MG SYG) 2 mg ONCE STAT IVP 01/31/25 05:41 01/31/25 05:45 DC 01/31/25 05:51 2 MG Multi-Ingred Cream/Lotion/Oil/ Oint (Artificial Tears Eye Oint) Apply ointment to both e... BID OU 02/20/25 21:00 03/02/25 14:59 02/20/25 21:00 1 APPL Multi-Ingred Cream/Lotion/Oil/ Oint (Artificial Tears Eye Oint) Apply ointment to both e... Q4H OU 01/31/25 15:00 02/20/25 16:14 DC 02/20/25 12:47 1 APPL Norepinephrine Bitartrate (Norepineph 16 Mg/250ml NS Premix) Continuous PROTOCOL IV 02/11/25 15:30 02/20/25 09:19 DC 02/19/25 17:16 16 MG Norepinephrine Bitartrate (Norepineph 16 Mg/250ml NS Premix) sbp>90 PROTOCOL IV 02/05/25 11:30 02/11/25 15:27 DC Norepinephrine Bitartrate 32 mg/ Sodium Chloride 250 ml @ 0 mls/hr PROTOCOL IV 02/20/25 09:30 03/22/25 09:29 Ondansetron HCl (zoFRAN 4MG INJ) 4 mg Q6H PRN IV NAUSEA/VOMITING 01/30/25 20:00 03/01/25 19:59 02/09/25 08:28 4 MG Pantoprazole Sodium (PROTonix 40MG INJ) 40 mg DAILY IVP 02/12/25 09:00 03/14/25 08:59 02/21/25 10:28 40 MG Pharmacy Profile Note (Pharmacy Communication) 1 each ONCE MISC 02/05/25 11:30 02/05/25 11:23 DC Pharmacy Profile Note (Pharmacy Communication) 1 each ONCE MISC 02/16/25 11:00 02/16/25 11:08 DC Pharmacy Profile Note (Pharmacy Communication) 1 each ONCE MISC 02/20/25 16:30 02/21/25 07:03 DC Pharmacy Profile Note (Pharmacy Communication) 1 each ONCE MISC 02/10/25 14:00 02/10/25 14:21 DC Phenylephrine HCl 100 mg/Sodium Chloride 250 ml @ 0 mls/hr PROTOCOL IV 02/20/25 01:00 03/22/25 00:59 02/21/25 01:26 62.46 MLS/HR Piperacillin Sod/ Tazobactam Sod (Zosyn 3.375gm+NS 50ml) 3.375 gm Q8H IVPB 01/31/25 09:30 01/31/25 12:56 DC 01/31/25 11:04 3.375 GM Piperacillin Sod/ Tazobactam Sod (Zosyn 3.375gm+NS 50ml) 3.375 gm ZOSY8 IVPB 01/31/25 13:00 02/01/25 13:33 DC 02/01/25 11:54 3.375 GM Polyethylene Glycol (MIRalax 3350 17 GM POWD.PACK) 17 gm DAILY PO 02/07/25 11:30 03/09/25 11:29 02/19/25 08:20 17 GM Propofol (DIPRivan 1000MG/ 100ML) 1,000 mg PROTOCOL PRN IV SEDATION 02/05/25 11:30 02/08/25 15:52 DC 02/08/25 08:29 1,000 MG Propofol (DIPRivan 1000MG/ 100ML) 1,000 mg PROTOCOL PRN IV SEDATION 02/15/25 13:30 03/17/25 13:29 02/20/25 17:21 1,000 MG Propofol (DIPRivan 1000MG/ 100ML) 1,000 mg PROTOCOL PRN IV SEDATION 02/12/25 23:30 02/15/25 13:07 DC 02/13/25 08:16 1,000 MG Raltegravir (Isentress) 400 mg BID PO 02/10/25 21:00 03/12/25 20:59 02/21/25 10:29 400 MG Silver Sulfadiazine (Silvadene) 1 APPL BID TP 02/16/25 21:00 03/18/25 20:59 02/21/25 10:29 1 GIORGI Sodium Bicarbonate 150 meq/Dextrose 1,150 ml @ 200 mls/hr Q5H45M IVP 02/16/25 06:30 02/20/25 09:01 DC 02/19/25 22:17 200 MLS/HR Sodium Bicarbonate (Sodium Bicarbonate) 100 mg DAILY PO 02/14/25 12:00 02/14/25 12:35 DC Sodium Bicarbonate (Sodium Bicarb 50meq 50ml Vial) 50 meq Q8H6 IV 02/06/25 14:00 02/07/25 16:00 DC 02/07/25 14:47 50 MEQ Sodium Chloride 500 ml @ 0 mls/hr Q0M IV 02/20/25 01:00 02/20/25 08:58 DC Sodium Chloride 1,000 ml @ 100 mls/hr Q10H IV 01/30/25 20:00 01/31/25 05:38 DC 01/30/25 21:18 100 MLS/HR Sodium Chloride (NS 50ml) 50 ml AD IV 02/10/25 06:00 03/12/25 05:59 Sodium Zirconium Cyclosilicate (Lokelma 10gm Powder) 10 gm BID PO 02/09/25 12:00 02/10/25 11:59 DC 02/10/25 08:29 10 GM Sodium Zirconium Cyclosilicate (Lokelma 10gm Powder) 10 gm TID PO 02/10/25 14:00 02/11/25 13:59 DC 02/11/25 08:26 10 GM Trimethoprim/ Sulfamethoxazole 480 mg/Dextrose 500 ml @ 250 mls/hr Q6H IV 01/30/25 21:00 02/01/25 11:57 DC 02/01/25 02:49 250 MLS/HR Trimethoprim/ Sulfamethoxazole 480 mg/Dextrose 500 ml @ 250 mls/hr Q6H IV 02/01/25 12:00 02/10/25 15:05 DC 02/10/25 08:27 250 MLS/HR Trimethoprim/ Sulfamethoxazole 480 mg/Dextrose 500 ml @ 250 mls/hr Q6H IV 02/20/25 17:00 03/02/25 16:59 02/21/25 04:49 250 MLS/HR Trimethoprim/ Sulfamethoxazole 480 mg/Dextrose 500 ml @ 250 mls/hr Q6H IV 02/10/25 16:00 02/20/25 15:59 DC 02/20/25 04:23 250 MLS/HR Trimethoprim/ Sulfamethoxazole / Dextrose 100 ml @ 100 mls/hr AD IV 01/30/25 20:00 02/09/25 19:59 UNV Vasopressin 40 units/Sodium Chloride 40 ml @ 0 mls/hr AD PRN IV TITRATE 02/19/25 22:30 03/21/25 22:29 02/20/25 04:22 1.8 MLS/HR Wound Care/ Dressing Products (Venelex Ointment) BID TP 02/09/25 21:00 02/16/25 16:23 DC 02/16/25 08:36 1 GM DIAGNOSTICS / RADIOLOGY: [ ] ASSESSMENT: Acute hypoxemic respiratory failure POA, requiring intubation Suspected Pneumocystis Jirovecii Pneumonia (PJP )POA Septic shock, POA 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 Acute hypoxemic respiratory failure POA, intubated Patient is currently intubated, continue on propofol Chest x-ray on presentation showed diffuse bilateral pneumonia with ARDS type picture. CT chest on presentation showed bilateral airspace opacities involving nearly entire lung curtis raising concern for severe diffuse pneumonia/ARDS like pattern Continue Solu-Medrol 40mg IV bid DuoNeb inhalation q.4h Pulmonology on board, we will continue to follow the recommendations Patient to be transferred to [facility] for ECMO Suspected Pneumocystis Jirovecii Pneumonia (PJP )POA Chest x-ray on presentation showed diffuse bilateral pneumonia with ARDS type picture CT chest showed bilateral airspace opacities involving nearly entire lung curtis raising concern for severe diffuse pneumonia/ARDS like pattern Continue fluconazole 200 mg IV Q 24 Discontinued Bactrim and instead started on Mepron a 1500 mg daily discontinue cefepime and start Meropenem1 g IV every 8 hours and continue on Bactrim, doxycycline and fluconazole. Pulmonology, Infectious Disease on board. We will follow their recommendations. 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 daily on 02/10/2025 Case management working with [facility] for HIV management. ID on board. Sepsis POA On presentation to ED patient's temperature 100.2, pulse 112, respiratory rate 28, lactic acid 2, procalcitonin 1.55 Chest x-ray showed diffuse bilateral pneumonia with ARDS type picture CT chest showed bilateral airspace opacities involving nearly entire lung curtis raising concern for severe diffuse pneumonia/ARDS like pattern Continue fluconazole 200 mg IV Q 24 , TMP SMX q.6 discontinue cefepime and start Meropenem1 g IV every 8 hours and continue on Bactrim, doxycycline and fluconazole. Lactic acid today at 15.1, now getting bicarb pushes We will trend white count, lactic acid Septic shock, POA Patient is currently intubated, sedated and dependent on vasopressor support- norepinephrine, phenylephrine, vasopressin Titrate vasopressor to keep MAP >65 or systolic blood pressure >95mmHg Uncontrolled hyperglycemia secondary to steroids Continue to monitor the blood glucose level. Continue insulin sliding scale. Tuberculosis R/O POA 3 out of 3 sputum samples collected for AFB smear. Sputum sample is sent for respiratory culture, we will follow up with the culture results. No acid-fast bacilli in smear from first 2 samples, studies to continue. GI prophylaxis with Pepcid 20 mg IV DVT prophylaxis with heparin 5000 SQ q.12h ATTESTATION BY PHYSICIAN I have seen and examined the patient. I reviewed the documentation, medical decision making, and treatment plan as noted by the resident physician above. I agree with the findings and plan of care. Erick Kirby IV, MD, ABHINAV MD Feb 21, 2025 12:37
[2025-02-21] MEDS ORDERED: ATOVAQUONE 750 MG/5 ML SUSP PO SCH (13:30)
[2025-02-21] MEDS ORDERED: PHARMACY COMMUNICATION MISC SCH ×2 (13:30)
--- NOTE | 2025-02-21 14:06 | EKG ---
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
--- NOTE | 2025-02-21 14:56 | PRN ---
This is a procedure note. Procedure performed: 1. Arterial line insertion. 2. Intraoperative Ultrasound Diagnosis: Hypotension Site: Right Axillary Description of procedure: Consent obatined. Consent waived, procedure performed emergently. Hand hygiene. Time out done. Chlorhexidine was used to prepare the skin. Intraoperative US was used to localize vascular structure and intra-arterial access of guidewire. Arterial line inserted with Seldinger technique on site specified above. Line secured at the hub. Patient tolerated procedure well. No immediate complications. NETO STARR [facility] Feb 21, 2025 14:56
--- NOTE | 2025-02-21 14:59 | PN ---
[facility] PROGRESS NOTE Date Patient Seen: Feb 21, 2025 Time of Visit: 14:56 Supervising Physician: [ Dr. Gerber] Primary Care Physician: [Avi LESTER] Outpatient Specialists: [ ] Inpatient Consults: [Dr. Prince, [facility] team-ICU] PROBLEM LIST: Acute hypoxemic and hypercarbic respiratory failure on admission requiring ETT and mechanical ventilator support ARDS Pneumocystis pneumonia Acute metabolic acidosis Thrombocytopenia Toxic metabolic encephalopathy on admission Acute sepsis on admission without septic shock secondary to community-acquired pneumonia HIV positive newly diagnosed stage IV. Not on anti-retroviral medication Acquired immunodeficiency syndrome Obstructive sleep apnea, untreated/undiagnosed Morbid obesity, BMI 33.6 Acute kidney injury on top of chronic kidney disease INTERVAL HISTORY: Patient to be transferred to [facility] for ECMO therapy. Dr. Gerber has spoken in length to accepting physician. Patient has been medically accepted. Pending bed. Family aware and agrees with plan of care. Plan: Transfer as soon as bed obtained Bicarb and repeat ABG continue ventilator support Sedation poor prognosis family updated Patient remains full code Total Critical care time spent 45 minutes, this excludes any procedures performed or anytime spent in educational or teaching. REVIEW OF SYSTEMS: Patient sedated on maximum dose Precedex PHYSICAL EXAM: On mechanical ventilator support via endotracheal tube. Bed ridden and nonverbal, sedated GENERAL: on Vent assistance, responding to self HEENT: EOMI, Sclera non icteric, moist mucosa NECK: Supple, no JVD, trachea midline LUNGS: Bilateral rhonchi HEART: Regular rate and rhythm. Normal S1 and S2, without murmurs ABD: Abdomen soft, nontender. Bowel sounds present, obese EXT: No clubbing cyanosis or edema : Dias in situ NEURO: Sedated Vital Signs (last 8hr) Date Time Temp Pulse Resp B/P (MAP) Pulse Ox O2 Delivery O2 Flow Rate FiO2 02/21/25 12:23 150 100 02/21/25 11:07 150 26 02/21/25 08:55 144 100 LABS: Hematology Labs: Test 02/21/25 12:08 02/21/25 07:52 Range/Units Hemoglobin 6.3 *L 14.0-18.0 g/dL Hematocrit 18.4 *L 42-54 % White Blood Count 2.9 L 4.8-10.8 K/uL Red Blood Count 2.08 L 4.50-6.20 MIL/uL Mean Corpuscular Volume 80.8 79-99 fL Mean Corpuscular Hemoglobin 28.4 27.0-33.0 pg Mean Corpuscular Hemoglobin Concent 35.1 32.0-36.0 g/dL Red Cell Distribution Width 15.1 11.0-15.5 % Platelet Count 37 #L 130-400 K/uL Mean Platelet Volume 9.8 7.5-10.5 fL Immature Granulocyte % (Auto) 0.7 0-1 % Neutrophils (%) (Auto) 91.3 H 40.0-77.0 % Lymphocytes (%) (Auto) 5.6 L 21.0-51.0 % Monocytes (%) (Auto) 2.4 L 3.0-13.0 % Eosinophils (%) (Auto) 0.0 0.0-8.0 % Basophils (%) (Auto) 0.0 0.0-5.0 % Neutrophils # (Auto) 2.6 1.8-7.7 K/uL Lymphocytes # (Auto) 0.2 L 1.0-4.8 K/uL Monocytes # (Auto) 0.1 0.1-1.0 K/uL Eosinophils # (Auto) 0.00 0.00-0.70 K/uL Basophils # (Auto) 0.00 0.00-0.20 K/uL Absolute Immature Granulocyte (auto 0.02 0-1 K/uL Segmented Neutrophils % 54 40-70 % Band Neutrophils % 34 H 0-2 % Lymphocytes % (Manual) 7 L 22-44 % Monocytes % (Manual) 1 L 2-9 % Metamyelocytes % 4 H 0-0 % Nucleated Red Blood Cells 1.7 H 0.0-0.19 % Differential Comment MANUAL DIFFERENTIAL White Cell Morphology Comment CONSISTENT W/DIFF Platelet Morphology Comment MARKED DEC Red Blood Cell Morphology See comments Chemistry Labs: Test 02/21/25 12:08 02/21/25 12:02 02/21/25 06:11 02/20/25 04:50 Range/Units Lactic Acid Level 16.5 H 0.8-2.5 mmol/L Whole Blood Glucose 88 70-110 MG/DL Sodium Level 138 136-145 mmol/L Potassium Level 4.1 3.5-5.1 mmol/L Chloride Level 92 L 101-111 mmol/L Carbon Dioxide Level 20 L 21-32 mmol/L Blood Urea Nitrogen 68 H 7-18 mg/dL Creatinine 2.7 H 0.5-1.3 mg/dL Glomerular Filtration Rate Calc 29 >90 mL/min Random Glucose 128 H 70-105 mg/dL Total Calcium 6.0 *L 8.5-10.1 mg/dL Phosphorus Level 5.5 H 2.5-4.9 mg/dL Magnesium Level 1.70 L 1.80-2.40 mg/dL Iron Level 87 # 65-175 mcg/dL Total Iron Binding Capacity 83 L 250-450 mcg/dL Percent Iron Saturation 104.8 H 30-44 % Ferritin 91081 H 30-400 ng/mL Total Bilirubin 1.1 H 0.2-1.0 mg/dL Aspartate Amino Transf (AST/SGOT) 174 H 10-37 U/L Alanine Aminotransferase (ALT/SGPT) 88 H 12-78 U/L Alkaline Phosphatase 109 50-136 U/L Total Protein 4.0 L 6.0-8.3 g/dL Albumin 1.6 L 3.5-5.0 g/dL Amylase Level 140 H 25-115 U/L Lipase 166 H 16-77 U/L B-Type Natriuretic Peptide 145 H 0-100 pg/mL DIAGNOSTICS / RADIOLOGY RESULTS: [ ] NEURO: Avoid use of central acting medications will try to wean off sedation PULMONARY: Supplemental 02 as needed Titrate Fio2 to keep Spo2 > or = 90% DuoNebs and CPT as needed IS hourly while awake for pulmonary hygiene Out of bed to chair as tolerated VAP Bundle Vent/BIPAP Settings: [ BIPAP setting 10/ rate of 18 FiO2 60%. ] CARDIOVASCULAR: Follow hemodynamics. Titrate vasopressor to keep MAP >65 or systolic blood pressure >95mmHg DRIPS: [Precedex ] LINES: [PIV] GI & NUTRITION: Continue nutritional support Aspirations precautions Prokinetic agents and laxatives as needed KIDNEYS & ELECTROLYTES: Strict monitoring of intake and output Daily weights Avoid nephrotoxic agents Monitor electrolytes and replace as needed Dias care-prevent CAUTI per nursing Goal urine output of 30mL/hr or 0.5mL/kg/hr Urine output: [ ] Fluid Balance: [ ] ENDOCRINE: Maintain blood glucose between 100-180 at all times. Insulin sliding scale for blood glucose management INFECTIOUS DISEASE: Trend temperature. Lara-culture if febrile. Micro: [ ] Antibiotics: [Vancomycin 01/30- IV Fluconazole: 01/30- IV Sulfa/TMP: 01/30-] HEMATOLOGY & COAGULATION: Monitor H&H. Keep Hgb > 7 Transfuse 1 unit of PRBC for Hgb < 7 Transfuse 1 pack of platelets of platelets < 20, 000 Watch for any signs and symptoms of bleeding SKIN: Pressure ulcer prevention per facility protocol Rehab: PT/OT Prophylaxis: GI: [Pepcid] DVT: [Heparin ] Code Status: Full Resuscitation Disposition: [ICU ] NETO STARR [facility] Feb 21, 2025 14:59
[2025-02-21 15:08] LABS: ABG BASE EXCESS -12.7 mmol/L (-2.0-3.0); ABG HCO3 14.9 mmol/L (21.0-28.0); ABG OXYGEN SATURATION 87.6 % (94.0-98.0); ABG PCO2 44 mmHg (35-48); ABG PH 7.151 (7.350-7.450); CARBON MONOXIDE 1.0 % (0.5-1.5); DEVICE COMMENT ALINE; PO2, ARTERIAL BG 71.8 mmHg (83.0-108.0); TEMPERATURE, CELSIUS BG 37.0 CELSIUS (35.5-37.0); VENT MODE, BG AC (ROOM AIR)
[2025-02-21] MEDS: NOREPINEPHRINE BITARTRATE 32 MG in 0.9% NACL 250ML 250 ML IV SCH (15:09)
[2025-02-21] MEDS: SODIUM BICARB 50MEQ 50ML VIAL IV STA (15:20)
--- NOTE | 2025-02-21 15:29 | NUR ---
[facility] Follow-up: Patient re-assessed by wound healing team. See wound assessment. Assessment and recommendations provided to primary nurse. Education provided. Unable to assess sacrococcygeal wound d/t patient hemodynamically unstable at this time.
[2025-02-21] MEDS ORDERED: CALCIUM GLUC 1GM/10ML VIAL IVPB STA (15:34)
[2025-02-21 16:37] LABS: ABG BASE EXCESS -11.3 mmol/L (-2.0-3.0); ABG HCO3 16.3 mmol/L (21.0-28.0); ABG OXYGEN SATURATION 87.5 % (94.0-98.0); ABG PCO2 45 mmHg (35-48); ABG PH 7.173 (7.350-7.450); CARBON MONOXIDE 0.7 % (0.5-1.5); PO2, ARTERIAL BG 68.3 mmHg (83.0-108.0); TEMPERATURE, CELSIUS BG 37.0 CELSIUS (35.5-37.0); VENT MODE, BG AC (ROOM AIR)
--- NOTE | 2025-02-21 16:45 | PN ---
PROGRESS NOTE Date of Service: Feb 21, 2025 Time of Service: 15:15 SUBJECTIVE: Patient is evaluated at bedside in room 217 for wound care follow up. Patient's sister at bedside during evaluation. Patient is currently intubated, sedated and dependent on vasopressor support. Patient's vital signs unstable during visit for turning patient at this time. The patient is a full code. The plan is for patient to be transferred to [facility] for ECMO therapy. REVIEW OF SYSTEMS Unable to complete patient is intubated PHYSICAL EXAM EYES: Anicteric. Pupils equal and reactive. HENT: No oral thrush seen, moist Oral mucosa, nasal bridge noted with dark discoloration NECK: Supple, no JVD or thyromegaly. LUNGS: Patient is intubated, rhonchi. CARDIOVASCULAR: sinus tachycardia, upper and lower extremity edema noted. ABDOMEN: Soft, non tender, bowel sounds present, no organomegaly CENTRAL NERVOUS SYSTEM: Patient is intubated and sedated SKIN: Dark discoloration noted to right heel, Dark discoloration to periwound with eschar tissue noted to sacral wound. Wound is deteriorating. LYMPHATICS: No peripheral lymphadenopathy MUSCULOSKELETAL: No joint swelling, erythema or tenderness. EXTREMITIES: No cyanosis or clubbing BACK: No deformity GENITOURINARY: No dysuria or hematuria Vital Signs (last 8hr) Date Time Temp Pulse Resp B/P (MAP) Pulse Ox O2 Delivery O2 Flow Rate FiO2 02/21/25 15:35 145 100 02/21/25 12:23 150 100 02/21/25 11:07 150 26 02/21/25 08:55 144 100 LABS: Laboratory: Test 02/21/25 16:35 02/21/25 12:08 02/21/25 12:02 02/21/25 07:52 Range/Units Blood Gas Specimen Type Arterial Arterial Blood pH 7.173 *L 7.350-7.450 Arterial Blood Partial Pressure CO2 45 35-48 mmHg Arterial Blood Partial Pressure O2 68.3 L 83.0-108.0 mmHg Arterial Blood HCO3 16.3 L 21.0-28.0 mmol/L Arterial Blood Oxygen Saturation 87.5 L 94.0-98.0 % Arterial Blood Base Excess -11.3 L -2.0-3.0 mmol/L Hemoglobin (Blood Gas) 6.5 #*L 13.5-17.5 g/dL Sodium (Blood Gas) 138 136-145 MMOL/L Bedside Potassium (Blood Gas) 5.0 H 3.4-4.5 MMOL/L Bedside Chloride (Blood Gas) 92 L 98-107 MMOL/L Bedside Glucose (Blood Gas) 45 *L 65-95 MG/DL Bedside Ionized Calcium (Blood Gas) 0.79 L 1.15-1.33 MMOL/L Bedside Lactic Acid (Blood Gas) > 22.00 *H 0.36-0.75 MMOL/L Blood Gas Temperature 37.0 35.5-37.0 CELSIUS Blood Gas Respiration Rate 26.0 min. Blood Gas Vent Mode AC ROOM AIR FiO2 100.0 % Blood Gas Tidal Volume 450 ml Blood Gas PEEP 12 cm H2O Blood Gas Specimen Comment BRIAN CUEVAS RN Hemoglobin 6.3 *L 14.0-18.0 g/dL Hematocrit 18.4 *L 42-54 % Lactic Acid Level 16.5 H 0.8-2.5 mmol/L Whole Blood Glucose 88 70-110 MG/DL White Blood Count 2.9 L 4.8-10.8 K/uL Red Blood Count 2.08 L 4.50-6.20 MIL/uL Mean Corpuscular Volume 80.8 79-99 fL Mean Corpuscular Hemoglobin 28.4 27.0-33.0 pg Mean Corpuscular Hemoglobin Concent 35.1 32.0-36.0 g/dL Red Cell Distribution Width 15.1 11.0-15.5 % Platelet Count 37 #L 130-400 K/uL Mean Platelet Volume 9.8 7.5-10.5 fL Immature Granulocyte % (Auto) 0.7 0-1 % Neutrophils (%) (Auto) 91.3 H 40.0-77.0 % Lymphocytes (%) (Auto) 5.6 L 21.0-51.0 % Monocytes (%) (Auto) 2.4 L 3.0-13.0 % Eosinophils (%) (Auto) 0.0 0.0-8.0 % Basophils (%) (Auto) 0.0 0.0-5.0 % Neutrophils # (Auto) 2.6 1.8-7.7 K/uL Lymphocytes # (Auto) 0.2 L 1.0-4.8 K/uL Monocytes # (Auto) 0.1 0.1-1.0 K/uL Eosinophils # (Auto) 0.00 0.00-0.70 K/uL Basophils # (Auto) 0.00 0.00-0.20 K/uL Absolute Immature Granulocyte (auto 0.02 0-1 K/uL Segmented Neutrophils % 54 40-70 % Band Neutrophils % 34 H 0-2 % Lymphocytes % (Manual) 7 L 22-44 % Monocytes % (Manual) 1 L 2-9 % Metamyelocytes % 4 H 0-0 % Nucleated Red Blood Cells 1.7 H 0.0-0.19 % Differential Comment MANUAL DIFFERENTIAL White Cell Morphology Comment CONSISTENT W/DIFF Platelet Morphology Comment MARKED DEC Red Blood Cell Morphology See comments Test 02/21/25 06:11 02/20/25 04:50 Range/Units Sodium Level 138 136-145 mmol/L Potassium Level 4.1 3.5-5.1 mmol/L Chloride Level 92 L 101-111 mmol/L Carbon Dioxide Level 20 L 21-32 mmol/L Blood Urea Nitrogen 68 H 7-18 mg/dL Creatinine 2.7 H 0.5-1.3 mg/dL Glomerular Filtration Rate Calc 29 >90 mL/min Random Glucose 128 H 70-105 mg/dL Total Calcium 6.0 *L 8.5-10.1 mg/dL Phosphorus Level 5.5 H 2.5-4.9 mg/dL Magnesium Level 1.70 L 1.80-2.40 mg/dL Iron Level 87 # 65-175 mcg/dL Total Iron Binding Capacity 83 L 250-450 mcg/dL Percent Iron Saturation 104.8 H 30-44 % Ferritin 44610 H 30-400 ng/mL Total Bilirubin 1.1 H 0.2-1.0 mg/dL Aspartate Amino Transf (AST/SGOT) 174 H 10-37 U/L Alanine Aminotransferase (ALT/SGPT) 88 H 12-78 U/L Alkaline Phosphatase 109 50-136 U/L Total Protein 4.0 L 6.0-8.3 g/dL Albumin 1.6 L 3.5-5.0 g/dL Amylase Level 140 H 25-115 U/L Lipase 166 H 16-77 U/L B-Type Natriuretic Peptide 145 H 0-100 pg/mL DIAGNOSTICS / RADIOLOGY: [ ] PROBLEM LIST : Medical Problems: (1) ARDS (adult respiratory distress syndrome) ICD Codes: J80 - Acute respiratory distress syndrome (2) SIRS (systemic inflammatory response syndrome) ICD Codes: R65.10 - Systemic inflammatory response syndrome (SIRS) of non- infectious origin without acute organ dysfunction Pressure ulcer to sacral region, unstageable Deep tissue injury to right heel index clerk Deep tissue injury to nasal bridge PLAN: Patient is currently intubated, sedated and dependent on vasopressor support, all of which contribute to reduced oxygenation and perfusion of skin and subcutaneous tissue making patient high risk for further skin deterioration. Continue Wound care to sacrum: Cleanse with normal saline, pat dry, apply Silvadene BID and prn Continue Wound care to right heel : paint with Betadine daily, leave open to air, apply waffle boots. Continue Wound care to nasal bridge: paint with Betadine daily, leave open to air Waffle mattress Keep wounds clean and dry Offloading/reposition q 2 hours Continue IV antibiotics per ID Comorbidities per primary care team Further Management per hospital course. Thank You for the consult and allowing us to participate in the care of this patient. ATTESTATION BY PHYSICIAN I have seen and examined the patient. I reviewed the documentation, medical decision making, and treatment plan as noted by the mid-level provider above. I agree with the findings and plan of care. TRACI CAMARILLO MD, MICHELLE A [facility] Feb 21, 2025 16:45
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
--- NOTE | 2025-02-21 17:58 | PN ---
INFECTIOUS DISEASE PROGRESS NOTE Date of Service: Feb 21, 2025 SUBJECTIVE: Today patient is on several vasopressors and a FiO2 of 100%. Hemoglobin dropped again to 5.9 and will be transfused 2 units of PRBC. Renal function continues to decline, BUN is 68 and a creatinine of 2.7. We will discontinue Bactrim IV and start patient on Mepron a 1500 mg daily and continue Meropenem, doxycycline and fluconazole. PHYSICAL EXAM EYES: Anicteric. Pupils equal and reactive. HENT: Oral thrush. NECK: Supple, no JVD or thyromegaly. LUNGS: On mechanical ventilatory support. CARDIOVASCULAR: S1, S2 regular. No murmur heard. ABDOMEN: Soft, non tender, bowel sounds present, no organomegaly. CENTRAL NERVOUS SYSTEM: Intubated and sedated. SKIN: Rash on abdomen and lower extremities POA, resolved. LYMPHATICS: No peripheral lymphadenopathy MUSCULOSKELETAL: No joint swelling, erythema or tenderness. EXTREMITIES: No cyanosis or clubbing. Weakness. BACK: Unstageable sacral ulcer. GENITOURINARY: No dysuria or hematuria. Dias catheter. Vital Sign (Last 12 Hours) 02/21/25 02/21/25 02/21/25 02/21/25 05:54 05:56 05:58 06:01 Pulse 148 147 148 147 Resp B/P (MAP) 76/28 (44) 84/47 (59) 77/46 (56) 84/42 (56) Pulse Ox 96 96 96 97 02/21/25 02/21/25 02/21/25 02/21/25 06:03 06:08 06:13 06:18 Pulse 136 98 147 146 Resp B/P (MAP) 92/41 (58) 94/41 (58) 82/53 (63) 80/53 (62) Pulse Ox 96 95 94 95 02/21/25 02/21/25 02/21/25 02/21/25 06:23 06:25 06:27 06:28 Pulse 148 144 148 144 Resp B/P (MAP) 74/40 (51) 86/51 (63) Pulse Ox 95 96 FiO2 100 02/21/25 02/21/25 02/21/25 02/21/25 06:32 06:37 06:42 08:55 Pulse 150 150 150 144 Resp 23 27 27 B/P (MAP) 90/51 (64) 84/57 (66) 79/48 (58) Pulse Ox 96 95 97 FiO2 100 02/21/25 02/21/25 02/21/25 11:07 12:23 15:35 Pulse 150 150 145 Resp 26 FiO2 100 100 Intake & Output (last 24hrs) 02/20/25 02/20/25 02/21/25 14:59 22:59 06:59 Intake Total 1709.6 ml 1346.1 ml 1819.2 ml Balance 1709.6 ml 1346.1 ml 1819.2 ml LABS: Laboratory: Test 02/21/25 16:35 02/21/25 12:08 02/21/25 12:02 02/21/25 07:52 Range/Units Blood Gas Specimen Type Arterial Arterial Blood pH 7.173 *L 7.350-7.450 Arterial Blood Partial Pressure CO2 45 35-48 mmHg Arterial Blood Partial Pressure O2 68.3 L 83.0-108.0 mmHg Arterial Blood HCO3 16.3 L 21.0-28.0 mmol/L Arterial Blood Oxygen Saturation 87.5 L 94.0-98.0 % Arterial Blood Base Excess -11.3 L -2.0-3.0 mmol/L Hemoglobin (Blood Gas) 6.5 #*L 13.5-17.5 g/dL Sodium (Blood Gas) 138 136-145 MMOL/L Bedside Potassium (Blood Gas) 5.0 H 3.4-4.5 MMOL/L Bedside Chloride (Blood Gas) 92 L 98-107 MMOL/L Bedside Glucose (Blood Gas) 45 *L 65-95 MG/DL Bedside Ionized Calcium (Blood Gas) 0.79 L 1.15-1.33 MMOL/L Bedside Lactic Acid (Blood Gas) > 22.00 *H 0.36-0.75 MMOL/L Blood Gas Temperature 37.0 35.5-37.0 CELSIUS Blood Gas Respiration Rate 26.0 min. Blood Gas Vent Mode AC ROOM AIR FiO2 100.0 % Blood Gas Tidal Volume 450 ml Blood Gas PEEP 12 cm H2O Blood Gas Specimen Comment BRIAN CUEVAS RN Hemoglobin 6.3 *L 14.0-18.0 g/dL Hematocrit 18.4 *L 42-54 % Lactic Acid Level 16.5 H 0.8-2.5 mmol/L Whole Blood Glucose 88 70-110 MG/DL White Blood Count 2.9 L 4.8-10.8 K/uL Red Blood Count 2.08 L 4.50-6.20 MIL/uL Mean Corpuscular Volume 80.8 79-99 fL Mean Corpuscular Hemoglobin 28.4 27.0-33.0 pg Mean Corpuscular Hemoglobin Concent 35.1 32.0-36.0 g/dL Red Cell Distribution Width 15.1 11.0-15.5 % Platelet Count 37 #L 130-400 K/uL Mean Platelet Volume 9.8 7.5-10.5 fL Immature Granulocyte % (Auto) 0.7 0-1 % Neutrophils (%) (Auto) 91.3 H 40.0-77.0 % Lymphocytes (%) (Auto) 5.6 L 21.0-51.0 % Monocytes (%) (Auto) 2.4 L 3.0-13.0 % Eosinophils (%) (Auto) 0.0 0.0-8.0 % Basophils (%) (Auto) 0.0 0.0-5.0 % Neutrophils # (Auto) 2.6 1.8-7.7 K/uL Lymphocytes # (Auto) 0.2 L 1.0-4.8 K/uL Monocytes # (Auto) 0.1 0.1-1.0 K/uL Eosinophils # (Auto) 0.00 0.00-0.70 K/uL Basophils # (Auto) 0.00 0.00-0.20 K/uL Absolute Immature Granulocyte (auto 0.02 0-1 K/uL Segmented Neutrophils % 54 40-70 % Band Neutrophils % 34 H 0-2 % Lymphocytes % (Manual) 7 L 22-44 % Monocytes % (Manual) 1 L 2-9 % Metamyelocytes % 4 H 0-0 % Nucleated Red Blood Cells 1.7 H 0.0-0.19 % Differential Comment MANUAL DIFFERENTIAL White Cell Morphology Comment CONSISTENT W/DIFF Platelet Morphology Comment MARKED DEC Red Blood Cell Morphology See comments Test 02/21/25 06:11 02/20/25 04:50 Range/Units Sodium Level 138 136-145 mmol/L Potassium Level 4.1 3.5-5.1 mmol/L Chloride Level 92 L 101-111 mmol/L Carbon Dioxide Level 20 L 21-32 mmol/L Blood Urea Nitrogen 68 H 7-18 mg/dL Creatinine 2.7 H 0.5-1.3 mg/dL Glomerular Filtration Rate Calc 29 >90 mL/min Random Glucose 128 H 70-105 mg/dL Total Calcium 6.0 *L 8.5-10.1 mg/dL Phosphorus Level 5.5 H 2.5-4.9 mg/dL Magnesium Level 1.70 L 1.80-2.40 mg/dL Iron Level 87 # 65-175 mcg/dL Total Iron Binding Capacity 83 L 250-450 mcg/dL Percent Iron Saturation 104.8 H 30-44 % Ferritin 52583 H 30-400 ng/mL Total Bilirubin 1.1 H 0.2-1.0 mg/dL Aspartate Amino Transf (AST/SGOT) 174 H 10-37 U/L Alanine Aminotransferase (ALT/SGPT) 88 H 12-78 U/L Alkaline Phosphatase 109 50-136 U/L Total Protein 4.0 L 6.0-8.3 g/dL Albumin 1.6 L 3.5-5.0 g/dL Amylase Level 140 H 25-115 U/L Lipase 166 H 16-77 U/L B-Type Natriuretic Peptide 145 H 0-100 pg/mL ASSESSMENT: Acute hypoxic and hypercapnic respiratory failure, s/p intubation. Multifocal pneumonia. Staphylococcus epidermidis bacteremia, possible a contaminant. Unstageable sacral wound. Suspected advanced stage HIV, not on anti-retroviral therapy, POA. Suspected Pneumocystis pneumonia, ruled out. Sepsis. Anemia requiring blood transfusion. Acute renal failure. Oral candidiasis. Morbid obesity. PLAN: Discontinue Bactrim IV. Start Mepron 1500 mg daily. Continue Meropenem. Continue fluconazole IV. Continue doxycycline IV. Continues on vasopressor support. Continue on Truvada and Raltegravir. Continue GI prophylaxis. Continues on mechanical ventilatory support. Continue critical care support. Continue wound care. This case was reviewed and discussed with my supervising physician Dr. Cornelius and the above assessment and plan was formulated and agreed upon. ATTESTATION BY PHYSICIAN I have seen and examined the patient. I reviewed the documentation, medical decision making, and treatment plan as noted by the mid-level provider above. I agree with the findings and plan of care. MIRZA CORNELIUS MD, MIRTA L [facility] Feb 21, 2025 17:58
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
--- NOTE | 2025-02-21 19:00 | NUR ---
NURSING NOTE 1100 HERMINIA WICK MADE AWARE OF INCREASING NEED FOR VASOPRESSOR USE, HEMODYNAMICS PRESENTED TO PROVIDER INCLUDING TACHYCARDIA, OK TO ADD EPI TO MAINTAIN BP. 1345: DR. LEE AND HERMINIA WICK ROUNDING ON PATIENT, PLAN TO INITIATE TRANSFER TO [facility] TO SEE IF CANDIDATE FOR ECMO, RN CALLED AND DR. THIBODEAUX ECMO COORDINATOR, SPOKE WITH DR. LEE REGARDING PATIENTS CONDITION. [employer] SALESPERSON MADE AWARE OF TRANSFER REQUEST CARE IS ONGOING. 1345 ARTERIAL LINE REQUESTED FOR ACCURATE BP MONITORING. 1500: ABG+ DONE AND RELAYED TO HERMINIA LESTER, SEE [facility] FOR INTERVENTIONS. 1550: PATIENT SUSTAINED VTACH WITH PULSE SELF CORRECTED. SEE PATIENT CHART FOR SPECIFICS HERMINIA WICK MADE AWARE. 1635: CODE BLUE INITIATED SEE CODE SHEET. 1700: PATIENT FAMILY AT BEDSIDE, DUSTY PATIENT DAUGHTER SPOKE WITH DR. CAMPA ER DOCTOR. POST CODE.
--- NOTE | 2025-02-22 07:03 | PN ---
BRIEF HISTORY: This patient has multiple medical problems, including renal failure worsening in a patient who had underlying HIV detected. This patient is doing very poorly. He continues to deteriorate. He was seen earlier in the ICU in the morning. The patient has hypoxic hypercapnic respiratory failure, pneumonia, bacteremia, sacral wound, suspected pneumocystis, anemia requiring transfusion, worsening renal failure, candidiasis and obesity. The patient remains mechanically ventilated. He remains on 3 pressors. He has worsening renal failure and oligoanuria. He is not a candidate for dialysis in this situation. REVIEW OF SYSTEMS: Not possible. No other associated finding. No other aggravating or relieving factor. PHYSICAL EXAMINATION: GENERAL: Critically ill in ICU seen. VITAL SIGNS: Blood pressure has been low to 98/47, on pressors. Pulse is 151. Respiratory rate is 16. HEENT: Pupils are round and reactive. Sclerae are icteric. Conjunctivae are pale. Oral mucosa is not dry. NECK: Supple. No masses or bruits. Thyroid is palpable. Neck has no bruits. CHEST: Shows equal thoracic percussion, note being resonant in all areas. BACK: No tenderness. No back deformity. DIAGNOSTIC DATA: Labs have shown hemoglobin as low as 5.9. Other electrolytes reviewed. The patient has rising creatinine and BUN of 68. PROBLEMS: Worsening renal failure in a patient who is acidotic. Respiratory failure. Human immunodeficiency virus. Pneumonia. Sepsis. Hypotension. Multiple other comorbidities. PLAN: * Supportive care continues. * The patient is a poor candidate for any form of renal replacement. * No urgent need for renal replacement therapy. * Discussed with the ICU team and other team members. * Labs, x-rays and imaging studies personally reviewed. Old records reviewed. External records reviewed. Condition is critical and guarded. I have discussed with other team physician. DNR is appropriate. Thank you for this patient. TID: [id number] RECEIPT: [id number]
== END 2025-02-21 20:44 | DRG 974 ==
LOC: EDH 15:43 → EDHIP 15:44 → 2CH 23:28
PROVIDERS: ADMIT Hospitalist; ATTEND Hospitalist
PROC: B548ZZA Ultrasonography of Superior Vena Cava, Guidance (ICD-10-PCS; 2025-01-31)
PROC: 02HV33Z Insertion of Infusion Device into Superior Vena Cava, Percutaneous Approach (ICD-10-PCS; 2025-01-31)
PROC: 5A09357 Assistance with Respiratory Ventilation, Less than 24 Consecutive Hours, Continuous Positive Airway Pressure (ICD-10-PCS; 2025-01-31)
PROC: 5A09357 Assistance with Respiratory Ventilation, Less than 24 Consecutive Hours, Continuous Positive Airway Pressure (ICD-10-PCS; 2025-02-01)
PROC: 5A09357 Assistance with Respiratory Ventilation, Less than 24 Consecutive Hours, Continuous Positive Airway Pressure (ICD-10-PCS; 2025-02-02)
PROC: 5A09357 Assistance with Respiratory Ventilation, Less than 24 Consecutive Hours, Continuous Positive Airway Pressure (ICD-10-PCS; 2025-02-03)
PROC: 5A0935A Assistance with Respiratory Ventilation, Less than 24 Consecutive Hours, High Flow/Velocity Cannula (ICD-10-PCS; 2025-02-03)
PROC: 5A09357 Assistance with Respiratory Ventilation, Less than 24 Consecutive Hours, Continuous Positive Airway Pressure (ICD-10-PCS; 2025-02-04)
PROC: 5A0935A Assistance with Respiratory Ventilation, Less than 24 Consecutive Hours, High Flow/Velocity Cannula (ICD-10-PCS; 2025-02-04)
PROC: 5A1955Z Respiratory Ventilation, Greater than 96 Consecutive Hours (ICD-10-PCS; principal; 2025-02-05)
PROC: 0BH18EZ Insertion of Endotracheal Airway into Trachea, Via Natural or Artificial Opening Endoscopic (ICD-10-PCS; 2025-02-05)
PROC: 4A00X4Z Measurement of Central Nervous Electrical Activity, External Approach (ICD-10-PCS; 2025-02-14)
PROC: 5A09357 Assistance with Respiratory Ventilation, Less than 24 Consecutive Hours, Continuous Positive Airway Pressure (ICD-10-PCS; 2025-02-14)
PROC: 30233N1 Transfusion of Nonautologous Red Blood Cells into Peripheral Vein, Percutaneous Approach (ICD-10-PCS; 2025-02-17)
PROC: 02HV33Z Insertion of Infusion Device into Superior Vena Cava, Percutaneous Approach (ICD-10-PCS; 2025-02-18)
PROC: B548ZZA Ultrasonography of Superior Vena Cava, Guidance (ICD-10-PCS; 2025-02-18)
PROC: 03HY32Z Insertion of Monitoring Device into Upper Artery, Percutaneous Approach (ICD-10-PCS; 2025-02-21)
PROC: 5A12012 Performance of Cardiac Output, Single, Manual (ICD-10-PCS; 2025-02-21)
DX: A41.9 Sepsis, unspecified organism (principal); G92.8 Other toxic encephalopathy; B20 Human immunodeficiency virus [HIV] disease; L89.153 Pressure ulcer of sacral region, stage 3; J96.01 Acute respiratory failure with hypoxia; B59 Pneumocystosis; Z66 Do not resuscitate; B37.0 Candidal stomatitis; I47.20 Ventricular tachycardia, unspecified; N17.9 Acute kidney failure, unspecified; D70.9 Neutropenia, unspecified; J18.9 Pneumonia, unspecified organism; B96.1 Klebsiella pneumoniae [K. pneumoniae] as the cause of diseases classified elsewhere; B96.89 Other specified bacterial agents as the cause of diseases classified elsewhere; B95.7 Other staphylococcus as the cause of diseases classified elsewhere; E11.22 Type 2 diabetes mellitus with diabetic chronic kidney disease; D63.1 Anemia in chronic kidney disease; I27.21 Secondary pulmonary arterial hypertension; K76.0 Fatty (change of) liver, not elsewhere classified; N18.9 Chronic kidney disease, unspecified; I37.1 Nonrheumatic pulmonary valve insufficiency; E66.01 Morbid (severe) obesity due to excess calories; E87.21 Acute metabolic acidosis; E87.1 Hypo-osmolality and hyponatremia; J98.11 Atelectasis; Z68.41 Body mass index [BMI] 40.0-44.9, adult; E11.65 Type 2 diabetes mellitus with hyperglycemia; E87.5 Hyperkalemia; F41.9 Anxiety disorder, unspecified; S90.31XA Contusion of right foot, initial encounter; T36.8X5A Adverse effect of other systemic antibiotics, initial encounter; T38.0X5A Adverse effect of glucocorticoids and synthetic analogues, initial encounter; Z74.01 Bed confinement status; Z93.1 Gastrostomy status; K59.00 Constipation, unspecified; G47.30 Sleep apnea, unspecified
CPT/HCPCS: 31500; 36415; 36430; 36569; 36600; 71045; 71250; 71270; 74018; 76705; 76770; 80048; 80051; 80053; 80076; 80305; 81001; 82010; 82140; 82150; 82435; 82550; 82570; 82607; 82728; 82803; 82947; 82948; 83036; 83540; 83550; 83605; 83615; 83690; 83735; 83880; 84100; 84132; 84145; 84156; 84295; 84443; 84484; 84550; 85014; 85018; 85025; 85027; 85378; 86140; 86360; 86480; 86635; 86701; 86803; 86812; 86850; 86880; 86900; 86901; 86922; 86923; 87040; 87071; 87086; 87116; 87186; 87205; 87206; 87281; 87283; 87389; 87390; 87536; 87635; 87804; 87880; 87900; 92950; 93005; 93306; 93356; 93970; 94002; 94003; 94150; 94640; 94660; 94664; 95819; 99291; C1894; G0378; J0169; J0612; J0692; J1450; J1644; J1650; J1815; J1938; J2185; J2270; J2370; J2371; J2405; J2470; J2543; J2704; J2765; J2919; J2997; J3010; J3373; J3475; J3490; J7030; J7050; J7060; J7070; J7120; P9016; P9045; P9046; P9047; Q9967; A9900; C1751; J1308; Q5106